=== PATIENT | female | born 1950 ===

== ENCOUNTER 2016-08-31 22:43 | Inpatient (IN) | payer MEDICARE, OTHER ==
[2016-08-31 22:43] VITALS: PULSE 146; BMI 25.0
[2016-08-31] MEDS ORDERED: Propofol 10 mg/ml Inj (20 ML) IVP ONE (23:30)
[2016-08-31] MEDS ORDERED: Propofol 10 mg/ml 1,000 MG/100 ML VIAL ONE (23:31)
--- NOTE | 2016-08-31 23:31 | C.PDOC ---
History Of Present Illness A 67 y/o female with a Hx of dialysis bleed, c/o feeling lethargic after she was discharged from [facility] today. Pt denies chest pain, palpitations, fever, chills, diaphoresis, or any other complaints. Time Seen by Provider: 08/31/16 23:29 Chief Complaint (Nursing): Respiratory Distress History Per: Patient History/Exam Limitations: no limitations Onset/Duration Of Symptoms: Hrs Current Symptoms Are (Timing): Still Present Severity: Mild Associated Symptoms: denies: Fever, Chills, Chest Pain Recent travel outside of the [place]: No Additional History Per: Patient Past Medical History Reviewed: Historical Data, Nursing Documentation, Vital Signs Vital Signs: Last Vital Signs Temp Pulse 60 08/31/16 22:47 Resp 23 08/31/16 23:01 BP 92/51 L 08/31/16 22:47 Pulse Ox 100 09/01/16 01:07 - Medical History PMH: Anemia, Arthritis, Atrial Fibrillation, CAD, Cardia Arrhythmia, Depression , HTN, Hyperlipidemia, Migraine, Osteoporosis, Pancreatitis, Peripheral Edema, End Stage Renal Disease, Chronic Kidney Disease Denies: COPD, Hypercholesterolemia, Rheumatoid Arthritis, Sexually Transmitted Disease Comment Only: CHF (CAD, A-fib) Surgical History: Cholecystectomy, Endoscopy, Pacemaker - [facility] Procedures ANGIOPLASTY OF OTHER NON-CORONARY VESSEL(S) (12/04/13) DIALYSIS ARTERIOVENOSTOM (12/04/13) FLEXIBLE SIGMOIDOSCOPY (07/30/14) FLUOROSCOPY OF LEFT HEART USING LOW OSMOLAR CONTRAST (02/01/16) FLUOROSCOPY OF MULT COR ART USING L OSM CONTRAST (02/01/16) HEMODIALYSIS (09/30/14) INSEJ [id number] PERIPHERAL NON-CORONARY VES STENT(S) (12/04/13) INSERTION OF ONE VASCULAR STENT (12/04/13) MEASURE OF CARDIAC SAMPL & PRESSURE, L HEART, PERC APPROACH (02/01/16) OTHER ENDOSCOPY OF SM INTEST (07/30/14) PACKED CELL TRANSFUSION (09/30/14) PERFORMANCE OF URINARY FILTRATION, MULTIPLE (03/25/16) PERFORMANCE OF URINARY FILTRATION, SINGLE (05/02/16) PROCEDURE ON SINGLE VESSEL (12/04/13) VASC PROC REVISION NEC (12/04/13) VENOUS CATHETERIZATION FOR RENAL DIALYSIS (12/04/13) Family History: States: Unknown Family Hx - Social History Hx Tobacco Use: No Hx Alcohol Use: No Hx Substance Use: No - Immunization History Hx Tetanus Toxoid Vaccination: Yes Hx Influenza Vaccination: Yes Hx Pneumococcal Vaccination: Yes Review Of Systems Except As Marked, All Systems Reviewed And Found Negative. Constitutional: Positive for: Other (Lethargic). Negative for: Fever, Chills, Sweats Cardiovascular: Negative for: Chest Pain, Palpitations Physical Exam - Physical Exam Appears: Non-toxic, No Acute Distress, Other (Lethargic) Skin: Warm, Dry Head: Atraumatic, Normacephalic Eye(s): bilateral: Normal Inspection Cardiovascular: Rhythm Regular, No Murmur Respiratory: Normal Breath Sounds, No Accessory Muscle Use, No Rales, No Rhonchi , No Wheezing Gastrointestinal/Abdominal: Soft, No Tenderness Extremity: Normal ROM, No Pedal Edema, No Deformity, No Swelling Neurological/Psych: Oriented x3, Normal Speech, Normal Cognition, Other (No focal deficit) ED Course And Treatment - Laboratory Results Result Diagrams: 09/01/16 00:07 Lab Interpretation: Abnormal Interpretation Of Abnormal: Preintubation VBG showed resp. acidosis wih elevated pCO2 ECG: Interpreted By Me, Viewed By Me ECG Rhythm: V Paced ECG Interpretation: Abnormal Interpretation Of ECG: Ventricular paced rhythm. Rate From EC O2 Sat by Pulse Oximetry: 100 (RA) Pulse Ox Interpretation: Other (initial VBG- pH-7.2 pCO2 of 84) - Radiology CXR: Interpreted by Me, Viewed By Me CXR Interpretation: Yes: Other (bilateral pleural effusion) Medical Decision Making Medical Decision Making: Impression: 66 y/o female c/o feeling lethargic today Plans: EKG Blood labs CXR IV fluids Reassess Pt is markedly lethargic and pt has been intubated. Disposition Discussed With : Porsha Newell Doctor Will See Patient In The: Hospital Counseled Patient/Family Regarding: Diagnosis - Disposition Disposition: HOSPITALIZED Disposition Time: 01:08 Condition: GUARDED - Clinical Impression Clinical Impression: Respiratory failure, ESRD (end stage renal disease) on dialysis - Scribe Statement The provider has reviewed the documentation as recorded by the Scribe Aneudy morris All medical record entries made by the Scribe were at my direction and personally dictated by me. I have reviewed the chart and agree that the record accurately reflects my personal performance of the history, physical exam, medical decision making, and the department course for this patient. I have also personally directed, reviewed, and agree with the discharge instructions and disposition.
[2016-08-31] MEDS ORDERED: Propofol 10 mg/ml 1,000 MG/100 ML VIAL IV PRN (23:49)
[2016-09-01 00:17] LABS: BASO % 0.5 % (0.0-2.0); EOS % 0.2 % (0.0-4.0); HEMOGLOBIN 9.3 g/dL (11.0-16.0); LYMPH # 0.3 K/uL (1.0-4.3); MEAN CORPUSCULAR HEMOGLOBIN 33.3 pg (27.0-31.0); MEAN CORPUSCULAR HGB CONC 29.7 g/dL (33.0-37.0); MEAN PLATELET VOLUME 10.3 fL (7.2-11.7); MONO # 0.5 K/uL (0.0-0.8); MONO % 14.5 % (0.0-10.0); NEUT # 2.3 K/uL (1.8-7.0); NEUT % 74.8 % (50.0-75.0); NRBC % 1.6 % (0.0-2.0); RBC 2.8 Mil/uL (3.80-5.20); WHITE BLOOD COUNT 3.1 K/uL (4.8-10.8)
[2016-09-01] MEDS ORDERED: Sodium Chloride 0.9% 100 ML IV ONE (00:17)
[2016-09-01 00:20] LABS: INR 2.6
[2016-09-01 00:21] LABS: ALBUMIN 4.3 g/dL (3.5-5.0)
[2016-09-01 00:37] LABS: ARTERIAL BLOOD GAS HCO3 28.3 mmol/L (21-28); ARTERIAL BLOOD GAS HEMOGLOBIN 9.6 g/dL (11.7-17.4); ARTERIAL BLOOD GAS O2 SAT 99.6 % (95-98); ARTERIAL BLOOD GAS PCO2 51 mm/Hg (35-45); ARTERIAL BLOOD GAS PH 7.38 (7.35-7.45); ARTERIAL BLOOD GAS PO2 333 mm/Hg (80-100); ARTERIAL BLOOD GAS TCO2 31.8 mmol/L (22-28)
[2016-09-01 00:37] LABS: TROPONIN I 0.03 ng/mL (0.00-0.120)
[2016-09-01 00:38] LABS: PROTHROMBIN TIME 30.3 SECONDS (9.7-12.2)
[2016-09-01] MEDS ORDERED: Phytonadione 10 mg/ml Inj (Adult) IM SCH (01:00)
--- NOTE | 2016-09-01 01:13 | CP.PCM.CON ---
History of Present Illness - History of Present Illness History of Present Illness: PCP: Jamil Newell MD Reason for Consult: Critical care Management Chief complaint: SOB HPI: The hx is obtained from the medical records as the patient is Intubated and the family is not present. This is a 66 years old female with hx of CAD; HTN; Scleroderma; ESRD on HD Sunday, and Sunday; Asthma , COPD; CHF who was admitted at the [facility] for three weeks and discharged on the day of this admission. She complained of feeling lethargic and was found to be in SOB and brought to the ED with a NRBM Oxygen. Heree in the ED she was intubated because of The severity of the SOB and impending respiratory arrest. No complains of Chest pain, nausea, vomits, palpitation, fever, chills, diaphoresis. PMH: Anemia, Arthritis, A Fib, CAD, Depression, HTN, HLD, Migraine, Osteoporosis, Pancreatitis, Peripheral Edema, ESRD, Asthma/COPD; scleroderma; CHF Glaucoma PSH: Cholecystitis; Permanent pacemaker; AV shunt at right arm; Failed kidney transplant; Endoscopy SH; No smoking; No Alcohol; No illegal drug use; live with family FH: Unknown family hx Allergies: Vancomycin, budesonide, Formaterol Review of Systems - Review of Systems Systems not reviewed;Unavailable: Respiratory Distress Review of Systems: Review of systems limited because the patient is intubated and is restless at this time. Past Patient History - Infectious Disease Hx of Infectious Diseases: None - Tetanus Immunizations Tetanus Immunization: Unknown - Past Medical History & Family History Past Medical History?: Yes - Past Social History Smoking Status: Never Smoked Chewing Tobacco Use: No Cigar Use: No Alcohol: None Home Situation {Lives}: With Family - CARDIAC Hx Atrial Fibrillation: Yes Hx Cardia Arrhythmia: Yes Hx Congestive Heart Failure: (CAD, A-fib) Hx Hypercholesterolemia: No Hx Hypertension: Yes Hx Pacemaker: Yes Hx Peripheral Edema: Yes - PULMONARY Hx Chronic Obstructive Pulmonary Disease (COPD): No - NEUROLOGICAL Hx Migraine: Yes - HEENT Hx HEENT Problems: Yes Hx Glaucoma: Yes (rt eye) - RENAL Hx Chronic Kidney Disease: Yes - ENDOCRINE/METABOLIC Hx Endocrine Disorders: No - HEMATOLOGICAL/ONCOLOGICAL Hx Anemia: Yes - INTEGUMENTARY Hx Dermatological Problems: Yes (nephrogenic sclerosis,Scleroderma) Other/Comment: SCLERODERMA - MUSCULOSKELETAL/RHEUMATOLOGICAL Hx Arthritis: Yes Hx Osteoporosis: Yes Hx Rheumatoid Arthritis: No - GASTROINTESTINAL Hx Pancreatitis: Yes - GENITOURINARY/GYNECOLOGICAL Hx Sexually Transmitted Disorders: No - PSYCHIATRIC Hx Depression: Yes Hx Substance Use: No - SURGICAL HISTORY Hx Cholecystectomy: Yes Other/Comment: AV Shunt for dialysis ; PPM; Kidney transplant failure - ANESTHESIA Hx Anesthesia: Yes Hx Anesthesia Reactions: No Hx Malignant Hyperthermia: No Meds Allergies/Adverse Reactions: Allergies Allergy/AdvReac Type Severity Reaction Status Date / Time vancomycin Allergy Severe ITCHING Verified 05/10/16 06:40 budesonide [From Symbicort] Allergy ITCHING Verified 08/31/16 22:56 formoterol [From Symbicort] Allergy ITCHING Verified 08/31/16 22:56 - Medications Medications: Current Medications Propofol (Diprivan) 1,000 mg in 100 mls @ 2.381 mls/hr IV .Q24H PRN; Protocol; 5 MCG/KG/MIN PRN Reason: TITRATE PER MD ORDER Last Admin: 08/31/16 23:51 Dose: 2.381 mls/hr Sodium Chloride (Sodium Chloride 0.9%) 100 mls @ 100 mls/hr IV .Q1H ONE Stop: 09/01/16 01:16 Last Admin: 09/01/16 00:18 Dose: 100 mls/hr Phytonadione (Vitamin K Inj) 10 mg IM STAT NEVAEH Physical Exam - Constitutional Additional comments: Patient on the mechanical ventilator - Head Exam Head Exam: ATRAUMATIC, NORMAL INSPECTION, NORMOCEPHALIC - Eye Exam Eye Exam: Normal appearance, PERRL Pupil Exam: NORMAL ACCOMODATION - ENT Exam ENT Exam: Mucous Membranes Moist, Normal Exam, Normal External Ear Exam, Normal Oropharynx - Neck Exam Neck exam: Positive for: Normal Inspection. Negative for: Full Rom, Lymphadenopathy, Tenderness - Respiratory Exam Additional comments: Expiratory wheezes, no rales, decreased breath sounds at the bases. - Cardiovascular Exam Cardiovascular Exam: REGULAR RHYTHM, RRR, +S1, +S2 - GI/Abdominal Exam Additional comments: Full, Firm, Tympanic on percussion, non tender, decreased bowl sounds - Rectal Exam Rectal Exam: Deferred - Extremities Exam Extremities exam: Negative for: calf tenderness, full ROM, joint swelling, pedal edema - Back Exam Back exam: NORMAL INSPECTION. absent: CVA tenderness (L), CVA tenderness (R) - Neurological Exam Neurological exam: CN II-XII Intact, Reflexes Normal Additional comments: Patient lightly sedated on Diprivan, Following commands to open the eyes , no facial droop, moving both upper extremities, minimal movement movement of the lower extremities. - Psychiatric Exam Psychiatric exam: Agitated - Skin Skin Exam: Intact, Normal Color, Warm Additional comments: Skin dry , tight, with some edema at the upper extremities, Botrh lower extremities with tight dry skin, Results - Vital Signs Recent Vital Signs: Last Vital Signs Temp Pulse 60 08/31/16 22:47 Resp 23 08/31/16 23:01 BP 92/51 L 08/31/16 22:47 Pulse Ox 100 09/01/16 01:09 - Labs Result Diagrams: 09/01/16 06:36 09/01/16 06:33 Labs: Laboratory Results - last 24 hr 08/31/16 09/01/16 09/01/16 22:48 00:07 00:07 WBC 3.1 L RBC 2.80 L Hgb 9.3 L Hct 31.4 L MCV 112.0 H D MCH 33.3 H MCHC 29.7 L RDW 20.0 H Plt Count 61 L D MPV 10.3 Neut % (Auto) 74.8 Lymph % (Auto) 10.0 L [place] % (Auto) 14.5 H Eos % (Auto) 0.2 Baso % (Auto) 0.5 Neut # 2.3 Lymph # 0.3 L [place] # 0.5 Eos # 0.0 Baso # 0.0 PT 30.3 H* INR 2.6 APTT 50 H Puncture Site pCO2 pO2 HCO3 ABG pH ABG Total CO2 ABG O2 Saturation ABG Base Excess ABG Hemoglobin ABG Carboxyhemoglobin POC ABG HHb (Measured) ABG Methemoglobin Gumaro Test A-a O2 Difference Respiratory Index Hgb O2 Saturation Mechanical Rate FiO2 Tidal Volume PEEP Sodium Potassium Chloride Carbon Dioxide Anion Gap BUN Creatinine Est GFR ( Amer) Est GFR (Non-Af Amer) POC Glucose (mg/dL) 150 H Random Glucose Calcium Total Bilirubin AST ALT Alkaline Phosphatase Troponin I Total Protein Albumin Globulin Albumin/Globulin Ratio 09/01/16 09/01/16 00:07 00:34 WBC RBC Hgb Hct MCV MCH MCHC RDW Plt Count MPV Neut % (Auto) Lymph % (Auto) [place] % (Auto) Eos % (Auto) Baso % (Auto) Neut # Lymph # [place] # Eos # Baso # PT INR APTT Puncture Site Lb pCO2 51 H pO2 333 H HCO3 28.3 H ABG pH 7.38 ABG Total CO2 31.8 H ABG O2 Saturation 99.6 H ABG Base Excess 4.3 H ABG Hemoglobin 9.6 L ABG Carboxyhemoglobin 2.1 H POC ABG HHb (Measured) 0.4 ABG Methemoglobin 0.7 Gumaro Test Na A-a O2 Difference 316.0 Respiratory Index 0.9 Hgb O2 Saturation 96.8 Mechanical Rate 18 FiO2 100.0 Tidal Volume 450 PEEP 5 Sodium 141 Potassium 3.6 Chloride 98 Carbon Dioxide 26 Anion Gap 20 BUN 25 H Creatinine 2.6 H Est GFR ( Amer) 22 Est GFR (Non-Af Amer) 18 POC Glucose (mg/dL) Random Glucose 113 H Calcium 9.0 Total Bilirubin 2.0 H AST 77 H D ALT 31 Alkaline Phosphatase 148 H D Troponin I 0.0300 Total Protein 8.7 H Albumin 4.3 Globulin 4.4 H Albumin/Globulin Ratio 1.0 - EKG Data EKG comments: Pac ed and caprured beats, 60/min - Imaging and Cardiology Chest x-ray Status: Image reviewed by me Additional comment: Bibasal infiltrate with Pleural effusion at the bases. Assessment & Plan - Assessment and Plan (Free Text) Assessment: #. RespiratoryDistress #. ESRD #. Thrombopenia #. Anemia of chronic Disease #. Leukopenia #.Hx of A Fib on Coumadin Plan: 66 years old female with hx of CAD; HTN; Scleroderma; ESRD on HD Sunday, and Sunday; Asthma , COPD; CHF who was admitted at the [facility] for three weeks and discharged on the day of this admission.She comes with lethargy and SOB, brought to the ED with a NRBM Oxygen. Intubated in ED because of The severe SOB and impending respiratory arrest. #. Respiratory Distress Probably due to Asthmatic crisis vs volume overload. The patient is on therapeutic dose of Coumadin which makes Pulmonary embolism less likely. - Patient intubated in ED Settings are TV 450, Rate of 18. PEEP of 5 and Fio2 of 100% - follow up repeated ABG - Duoneb Q4hrs and Q2 hrs PRN - Urgent dialysis #. ESRD - Consult Dr Velasquez Gonzalez, Nephrology, for Dialysis - Follow Renal labs #. Thrombopenia most likely chronic - follow Platelets #. Anemia of chronic renal disease - Follow Hb #. Leukopenia - Follow WBC #.Hx of A Fib on Coumadin - Follow INR #. Stress ulcer prophylaxis with Pepcid #. DVT prophylaxis with SCD and Coumadin #. Code status Full - Date & Time Date: 09/01/16 Time: 01:12
[2016-09-01] MEDS ORDERED: Albuterol-Ipratrop 3 mg / 0.5 (3 ml) UD INH PRN (02:20)
[2016-09-01 03:23] LABS: ABG ALLEN TEST P; ARTERIAL BLOOD GAS HCO3 27.8 mmol/L (21-28); ARTERIAL BLOOD GAS O2 SAT 98.7 % (95-98); ARTERIAL BLOOD GAS PCO2 34 mm/Hg (35-45); ARTERIAL BLOOD GAS PO2 135 mm/Hg (80-100); ARTERIAL BLOOD GAS TCO2 27.5 mmol/L (22-28)
[2016-09-01 06:49] LABS: INR 2.4; PROTHROMBIN TIME 27.5 SECONDS (9.7-12.2)
[2016-09-01 06:53] LABS: BASO % 0.6 % (0.0-2.0); EOS % 0.7 % (0.0-4.0); HEMOGLOBIN 9.2 g/dL (11.0-16.0); LYMPH # 0.6 K/uL (1.0-4.3); MEAN CELL VOLUME 108.8 fL (81.0-99.0); MEAN CORPUSCULAR HGB CONC 31.3 g/dL (33.0-37.0); MEAN PLATELET VOLUME 10.3 fL (7.2-11.7); MONO # 0.5 K/uL (0.0-0.8); MONO % 11.9 % (0.0-10.0); NEUT # 2.8 K/uL (1.8-7.0); NEUT % 70.8 % (50.0-75.0); NRBC % 1.4 % (0.0-2.0); RBC 2.71 Mil/uL (3.80-5.20); RED CELL DISTRIBUTION WIDTH 19.1 % (11.5-14.5)
[2016-09-01 07:03] LABS: TROPONIN I 0.051 ng/mL (0.00-0.120)
[2016-09-01 07:05] LABS: CALCIUM 8.9 mg/dl (8.6-10.4)
[2016-09-01] MEDS: Albuterol-Ipratrop 3 mg / 0.5 (3 ml) UD INH SCH ×4 (07:57→19:54)
--- NOTE | 2016-09-01 10:23 | RAD ---
PROCEDURE: CHEST RADIOGRAPH, 1 VIEW HISTORY: Shortness of breath COMPARISON: 05/10/2016. FINDINGS: The endotracheal tube terminates 1.6 cm proximal to the cristi. LUNGS: There is severe pulmonary venous congestion and prominent central vasculature. There is also fluid in the horizontal fissure. PLEURA: There are bilateral pleural effusions, larger on the right. CARDIOVASCULAR: There is borderline cardiomegaly. There is stable position of a left-sided dual lead transvenous permanent pacing device. OSSEOUS STRUCTURES: No significant abnormalities. VISUALIZED UPPER ABDOMEN: Normal. OTHER FINDINGS: None. IMPRESSION: 1. Endotracheal tube terminates 1.6 cm proximal to the cristi. 2. Severe pulmonary venous congestion and bilateral pleural effusions most compatible with congestive heart failure. Underlying right lower lobe atelectasis/ pneumonia cannot be excluded. Follow-up is advised.
--- NOTE | 2016-09-01 12:45 | CP.PCM.HP ---
Past Patient History - Infectious Disease Hx of Infectious Diseases: None - Tetanus Immunizations Tetanus Immunization: Unknown - Past Medical History & Family History Past Medical History?: Yes - Past Social History Smoking Status: Never Smoked Chewing Tobacco Use: No Cigar Use: No Alcohol: None Home Situation {Lives}: With Family - CARDIAC Hx Atrial Fibrillation: Yes Hx Cardia Arrhythmia: Yes Hx Congestive Heart Failure: (CAD, A-fib) Hx Hypercholesterolemia: No Hx Hypertension: Yes Hx Pacemaker: Yes Hx Peripheral Edema: Yes - PULMONARY Hx Chronic Obstructive Pulmonary Disease (COPD): No - NEUROLOGICAL Hx Migraine: Yes - HEENT Hx HEENT Problems: Yes Hx Glaucoma: Yes (rt eye) - RENAL Hx Chronic Kidney Disease: Yes - ENDOCRINE/METABOLIC Hx Endocrine Disorders: No - HEMATOLOGICAL/ONCOLOGICAL Hx Anemia: Yes - INTEGUMENTARY Hx Dermatological Problems: Yes (nephrogenic sclerosis,Scleroderma) Other/Comment: SCLERODERMA - MUSCULOSKELETAL/RHEUMATOLOGICAL Hx Arthritis: Yes Hx Osteoporosis: Yes Hx Rheumatoid Arthritis: No - GASTROINTESTINAL Hx Pancreatitis: Yes - GENITOURINARY/GYNECOLOGICAL Hx Sexually Transmitted Disorders: No - PSYCHIATRIC Hx Depression: Yes Hx Substance Use: No - SURGICAL HISTORY Hx Cholecystectomy: Yes Other/Comment: AV Shunt for dialysis ; PPM; Kidney transplant failure - ANESTHESIA Hx Anesthesia: Yes Hx Anesthesia Reactions: No Hx Malignant Hyperthermia: No Meds Allergies/Adverse Reactions: Allergies Allergy/AdvReac Type Severity Reaction Status Date / Time vancomycin Allergy Severe ITCHING Verified 05/10/16 06:40 budesonide [From Symbicort] Allergy ITCHING Verified 08/31/16 22:56 formoterol [From Symbicort] Allergy ITCHING Verified 08/31/16 22:56 Physical Exam - Constitutional Appears: Well - Head Exam Head Exam: ATRAUMATIC, NORMAL INSPECTION, NORMOCEPHALIC - Eye Exam Eye Exam: EOMI, Normal appearance, PERRL Pupil Exam: NORMAL ACCOMODATION, PERRL - ENT Exam ENT Exam: Mucous Membranes Moist, Normal Exam - Neck Exam Neck exam: Positive for: Normal Inspection - Respiratory Exam Respiratory Exam: Decreased Breath Sounds - Cardiovascular Exam Cardiovascular Exam: REGULAR RHYTHM, +S1, +S2 - GI/Abdominal Exam GI & Abdominal Exam: Diminished Bowel Sounds, Soft - Rectal Exam Rectal Exam: Deferred Results - Vital Signs Recent Vital Signs: Last Vital Signs Temp 98.3 F 09/01/16 11:00 Pulse 60 09/01/16 11:49 Resp 20 09/01/16 11:49 BP 85/38 L 09/01/16 12:00 Pulse Ox 100 09/01/16 11:00 - Labs Result Diagrams: 09/01/16 06:36 09/01/16 06:33 Labs: Laboratory Results - last 24 hr 09/01/16 09/01/16 09/01/16 01:27 02:07 06:33 WBC RBC Hgb Hct MCV MCH MCHC RDW Plt Count MPV Neut % (Auto) Lymph % (Auto) [place] % (Auto) Eos % (Auto) Baso % (Auto) Neut # Lymph # [place] # Eos # Baso # PT INR Puncture Site L brah pCO2 34 L pO2 135 H HCO3 27.8 ABG pH 7.50 H ABG Total CO2 27.5 ABG O2 Saturation 98.7 H ABG Base Excess 3.6 H Gumaro Test P ABG Potassium 3.9 A-a O2 Difference 179.0 Respiratory Index 1.3 Sodium 138.0 138 Chloride 103.0 96 L Glucose 79 Lactate 1.8 Mechanical Rate 20 FiO2 50.0 Tidal Volume 500 PEEP 5 Potassium 3.8 Carbon Dioxide 25 Anion Gap 21 H BUN 29 H Creatinine 2.8 H Est GFR ( Amer) 20 Est GFR (Non-Af Amer) 17 Random Glucose 63 L Calcium 8.9 Phosphorus 2.0 L Magnesium 2.0 Troponin I 0.0510 Arterial Blood Potassium 3.9 Blood Type O POSITIVE Antibody Screen Positive Antibody Identification Anti E 09/01/16 09/01/16 09/01/16 06:36 06:36 11:30 WBC 4.0 L RBC 2.71 L Hgb 9.2 L Hct 29.4 L MCV 108.8 H D MCH 34.0 H MCHC 31.3 L RDW 19.1 H Plt Count 72 L MPV 10.3 Neut % (Auto) 70.8 Lymph % (Auto) 16.0 L [place] % (Auto) 11.9 H Eos % (Auto) 0.7 Baso % (Auto) 0.6 Neut # 2.8 Lymph # 0.6 L [place] # 0.5 Eos # 0.0 Baso # 0.0 PT 27.5 H INR 2.4 Puncture Site pCO2 pO2 HCO3 ABG pH ABG Total CO2 ABG O2 Saturation ABG Base Excess Gumaro Test ABG Potassium A-a O2 Difference Respiratory Index Sodium Chloride Glucose Lactate Mechanical Rate FiO2 Tidal Volume PEEP Potassium Carbon Dioxide Anion Gap BUN Creatinine Est GFR ( Amer) Est GFR (Non-Af Amer) Random Glucose Calcium Phosphorus Magnesium Troponin I 0.0680 Arterial Blood Potassium Blood Type Antibody Screen Antibody Identification
--- NOTE | 2016-09-01 12:51 | CP.PCM.CON ---
History of Present Illness - History of Present Illness History of Present Illness: Chief complaint: SOB HPI: The hx is obtained from the medical records as the patient is Intubated and the family is not present. This is a 66 years old female with hx of ICmp; HTN; systemic fibrosing dermopathy; ESRD on HD Sunday, and Sunday; Asthma , COPD; CHF who was admitted at the [facility] for three weeks and discharged on the day of this admission. She complained of feeling lethargic and was found to be in SOB and brought to the ED with a NRBM Oxygen. Heree in the ED she was intubated because of The severity of the SOB and impending respiratory arrest. No complains of Chest pain, nausea, vomits, palpitation, fever, chills, diaphoresis. PMH: Anemia, Arthritis, A Fib, ICMP, Depression, HTN, HLD, Migraine, Osteoporosis, Pancreatitis, Peripheral Edema, ESRD, Asthma/COPD; systemic fibrosing dermopathy; CHF , severe DDD spine PSH: Cholecystitis; Permanent pacemaker; AV shunt at right arm; Failed kidney transplant x2; Endoscopy SH; No smoking; No Alcohol; No illegal drug use; live with family FH: Unknown family hx Allergies: Vancomycin, budesonide, Formaterol Well known to me; scheduled for extra HD due to CHF; had presented with respiratory failure consult dictated Past Patient History - Infectious Disease Hx of Infectious Diseases: None - Tetanus Immunizations Tetanus Immunization: Unknown - Past Medical History & Family History Past Medical History?: Yes - Past Social History Smoking Status: Never Smoked Chewing Tobacco Use: No Cigar Use: No Alcohol: None Home Situation {Lives}: With Family - CARDIAC Hx Atrial Fibrillation: Yes Hx Cardia Arrhythmia: Yes Hx Congestive Heart Failure: (CAD, A-fib) Hx Hypercholesterolemia: No Hx Hypertension: Yes Hx Pacemaker: Yes Hx Peripheral Edema: Yes - PULMONARY Hx Chronic Obstructive Pulmonary Disease (COPD): No - NEUROLOGICAL Hx Migraine: Yes - HEENT Hx HEENT Problems: Yes Hx Glaucoma: Yes (rt eye) - RENAL Hx Chronic Kidney Disease: Yes - ENDOCRINE/METABOLIC Hx Endocrine Disorders: No - HEMATOLOGICAL/ONCOLOGICAL Hx Anemia: Yes - INTEGUMENTARY Hx Dermatological Problems: Yes (nephrogenic sclerosis,Scleroderma) Other/Comment: SCLERODERMA - MUSCULOSKELETAL/RHEUMATOLOGICAL Hx Arthritis: Yes Hx Osteoporosis: Yes Hx Rheumatoid Arthritis: No - GASTROINTESTINAL Hx Pancreatitis: Yes - GENITOURINARY/GYNECOLOGICAL Hx Sexually Transmitted Disorders: No - PSYCHIATRIC Hx Depression: Yes Hx Substance Use: No - SURGICAL HISTORY Hx Cholecystectomy: Yes Other/Comment: AV Shunt for dialysis ; PPM; Kidney transplant failure - ANESTHESIA Hx Anesthesia: Yes Hx Anesthesia Reactions: No Hx Malignant Hyperthermia: No Meds Allergies/Adverse Reactions: Allergies Allergy/AdvReac Type Severity Reaction Status Date / Time vancomycin Allergy Severe ITCHING Verified 05/10/16 06:40 budesonide [From Symbicort] Allergy ITCHING Verified 08/31/16 22:56 formoterol [From Symbicort] Allergy ITCHING Verified 08/31/16 22:56 - Medications Medications: Current Medications Albuterol/Ipratropium (Duoneb 3 Mg/0.5 Mg (3 Ml) Ud) 3 ml INH RQ4 [facility] Last Admin: 09/01/16 12:13 Dose: Not Given Albuterol/Ipratropium (Duoneb 3 Mg/0.5 Mg (3 Ml) Ud) 3 ml INH RQ2 PRN PRN Reason: Shortness of Breath Amiodarone HCl (Cordarone) 200 mg PO DAILY [facility] Last Admin: 09/01/16 10:10 Dose: 200 mg Calcium Acetate (Phoslo) 1,334 mg PO BIDCC [facility] Last Admin: 09/01/16 10:09 Dose: 1,334 mg Clopidogrel Bisulfate (Plavix) 75 mg PO DAILY [facility] Last Admin: 09/01/16 10:10 Dose: 75 mg Docusate Sodium (Colace) 100 mg PO BID PRN PRN Reason: Constipation Famotidine (Pepcid) 20 mg PO DAILY [facility] Last Admin: 09/01/16 10:10 Dose: 20 mg Folic Acid (Folic Acid) 1 mg NG DAILY [facility] Last Admin: 09/01/16 10:10 Dose: 1 mg Propofol (Diprivan) 1,000 mg in 100 mls @ 2.381 mls/hr IV .Q24H PRN; Protocol; 5 MCG/KG/MIN PRN Reason: TITRATE PER MD ORDER Last Titration: 09/01/16 11:14 Dose: 4.4 mcg/kg/min, 2.1 mls/hr Metoprolol Tartrate (Lopressor) 25 mg PO BID [facility] Last Admin: 09/01/16 10:10 Dose: 25 mg Midazolam HCl (Versed Inj) 2 mg IVP Q4H PRN PRN Reason: Agitation Warfarin Sodium (Coumadin) 5 mg PO 1800 [facility] Stop: 09/01/16 18:01 Results - Vital Signs Recent Vital Signs: Last Vital Signs Temp 98.3 F 09/01/16 11:00 Pulse 60 09/01/16 11:49 Resp 20 09/01/16 11:49 BP 85/38 L 09/01/16 12:00 Pulse Ox 100 09/01/16 11:00 - Labs Result Diagrams: 09/01/16 06:36 09/01/16 06:33 Labs: Laboratory Results - last 24 hr 09/01/16 09/01/16 09/01/16 01:27 02:07 06:33 WBC RBC Hgb Hct MCV MCH MCHC RDW Plt Count MPV Neut % (Auto) Lymph % (Auto) Cecil % (Auto) Eos % (Auto) Baso % (Auto) Neut # Lymph # Cecil # Eos # Baso # PT INR Puncture Site L brah pCO2 34 L pO2 135 H HCO3 27.8 ABG pH 7.50 H ABG Total CO2 27.5 ABG O2 Saturation 98.7 H ABG Base Excess 3.6 H Gumaro Test P ABG Potassium 3.9 A-a O2 Difference 179.0 Respiratory Index 1.3 Sodium 138.0 138 Chloride 103.0 96 L Glucose 79 Lactate 1.8 Mechanical Rate 20 FiO2 50.0 Tidal Volume 500 PEEP 5 Potassium 3.8 Carbon Dioxide 25 Anion Gap 21 H BUN 29 H Creatinine 2.8 H Est GFR ( Amer) 20 Est GFR (Non-Af Amer) 17 Random Glucose 63 L Calcium 8.9 Phosphorus 2.0 L Magnesium 2.0 Troponin I 0.0510 Arterial Blood Potassium 3.9 Blood Type O POSITIVE Antibody Screen Positive Antibody Identification Anti E 09/01/16 09/01/16 09/01/16 06:36 06:36 11:30 WBC 4.0 L RBC 2.71 L Hgb 9.2 L Hct 29.4 L MCV 108.8 H D MCH 34.0 H MCHC 31.3 L RDW 19.1 H Plt Count 72 L MPV 10.3 Neut % (Auto) 70.8 Lymph % (Auto) 16.0 L Cecil % (Auto) 11.9 H Eos % (Auto) 0.7 Baso % (Auto) 0.6 Neut # 2.8 Lymph # 0.6 L Cecil # 0.5 Eos # 0.0 Baso # 0.0 PT 27.5 H INR 2.4 Puncture Site pCO2 pO2 HCO3 ABG pH ABG Total CO2 ABG O2 Saturation ABG Base Excess Gumaro Test ABG Potassium A-a O2 Difference Respiratory Index Sodium Chloride Glucose Lactate Mechanical Rate FiO2 Tidal Volume PEEP Potassium Carbon Dioxide Anion Gap BUN Creatinine Est GFR ( Amer) Est GFR (Non-Af Amer) Random Glucose Calcium Phosphorus Magnesium Troponin I 0.0680 Arterial Blood Potassium Blood Type Antibody Screen Antibody Identification
--- NOTE | 2016-09-01 14:21 | CON ---
DATE: 09/01/2016 HISTORY OF PRESENT ILLNESS: The patient is a 66-year-old woman who presents with respirator y failure. She was intubated in the Emergency Department. She was brought in by the family. She raya d recently just been discharged at [facility] on that day or possibly the day previous where she was admitted for heart failure. She presents now with respiratory failure, had immediate i ntubation in the Emergency Department. PAST MEDICAL HISTORY: End-stage renal disease, been on dialysis for many years. She has failed 2 ki dney transplants. She has known ischemic cardiomyopathy and has recurrent congestive heart failure. Other diagnosis is that of again end-stage renal disease, ischemic cardiomyopathy, COPD, 2 failed ki dney transplant, severe degenerative disk disease of the spine, depression. She has systemic fibrosi ng dermopathy due to gadolinium and has had recurrent congestive heart failure. PAST SURGICAL HISTORY: Two kidney transplants, both failed. A permanent pacemaker, AV graft on the right. She had a previous failed shunt on the left arm and cholecystitis as well. SOCIAL HISTORY: Negative for smoking, alcohol abuse or illicit drug use. She had been living with h er family. FAMILY HISTORY: Negative for chronic kidney disease as well. MEDICATIONS: Include amiodarone, warfarin. She is presently on sedation on the respirator, folic ac id, metoprolol, Pepcid, PhosLo 2 tablets 3 times daily, Plavix. REVIEW OF SYSTEMS: She has been chronically ill, has severe dyspnea on exertion, severe pain in most ly the back, but it was somewhat diffuse pain. She has poor vision, mostly due to glaucoma history a s well. Also, does have a history of atrial fibrillation which was unmentioned and severe arthritis and has little urine output. She is chronically depressed. Other review of systems could not be obt ained. The patient is intubated. PHYSICAL EXAMINATION: GENERAL: She is a well-developed female who is presently intubated. VITAL SIGNS: Blood pressure initially when seen 105/60. Now, she is 85/40 while on dialysis, pulse is 60, temperature initially was afebrile, listed at 98.3.. NECK: She had no JVD. CHEST: Lung nino showed rales, mostly at the bases. HEART: Irregular heart rhythm, heart rate approximately 60. She has no murmur appreciated. ABDOMEN: Soft, benign, no masses. NEUROLOGIC: She is unresponsive. Neurological exam could not be further obtained. She has thickene d upper extremity digits due to the systemic fibrosing dermopathy. LABORATORY DATA: Showed hemoglobin of 9.2, white count of 4.0. She had a BUN 29, creatinine 2.8, po tassium 3.8. Chest x-ray apparently showed pleural effusions and severe congestive heart failure. IMPRESSION: The patient has severe congestive heart failure, end-stage renal disease, ischemic cardi omyopathy, failed 2 kidney transplants, degenerative disk disease, chronic atrial fibrillation, syste sole fibrosing dermopathy. PLAN: Will be increase dialysis today and tomorrow and try to ultrafiltrate adequately. Will receiv e ICU care for ventilator treatment. We will follow up. Carlos Eng MD cc: [id number] TT: 09/01/2016 14:20:02 Confirmation # [id number] Dictation # [id number] tn
[2016-09-02] MEDS: Midazolam 2 MG/2 ML VIAL IVP PRN ×3 (00:04→22:53)
[2016-09-02] MEDS: Albuterol-Ipratrop 3 mg / 0.5 (3 ml) UD INH SCH ×6 (00:29→19:51)
[2016-09-02 05:59] LABS: ARTERIAL BLOOD GAS HCO3 26.7 mmol/L (21-28); ARTERIAL BLOOD GAS HEMOGLOBIN 7.8 g/dL (11.7-17.4); ARTERIAL BLOOD GAS O2 SAT 99.1 % (95-98); ARTERIAL BLOOD GAS PCO2 20 mm/Hg (35-45); ARTERIAL BLOOD GAS PH 7.66 (7.35-7.45); ARTERIAL BLOOD GAS PO2 144 mm/Hg (80-100); ARTERIAL BLOOD GAS TCO2 23.1 mmol/L (22-28)
[2016-09-02 06:13] LABS: BASO % 0.9 % (0.0-2.0); EOS % 0.4 % (0.0-4.0); HEMOGLOBIN 8.8 g/dL (11.0-16.0); LYMPH # 0.7 K/uL (1.0-4.3); LYMPH % 13.6 % (20.0-40.0); MEAN CELL VOLUME 108.7 fL (81.0-99.0); MEAN CORPUSCULAR HEMOGLOBIN 34.2 pg (27.0-31.0); MEAN CORPUSCULAR HGB CONC 31.5 g/dL (33.0-37.0); MEAN PLATELET VOLUME 9.9 fL (7.2-11.7); MONO # 0.5 K/uL (0.0-0.8); MONO % 9.9 % (0.0-10.0); NEUT # 3.6 K/uL (1.8-7.0); NEUT % 75.2 % (50.0-75.0); NRBC % 0.6 % (0.0-2.0); RBC 2.56 Mil/uL (3.80-5.20); WHITE BLOOD COUNT 4.8 K/uL (4.8-10.8)
[2016-09-02 06:14] LABS: INR 2.1; PROTHROMBIN TIME 24.4 SECONDS (9.7-12.2)
[2016-09-02 06:33] LABS: ALBUMIN 3.7 g/dL (3.5-5.0)
[2016-09-02 06:37] LABS: CALCIUM 8.4 mg/dl (8.6-10.4); MAGNESIUM 1.9 mg/dL (1.6-2.3)
[2016-09-02 08:16] LABS: VENOUS BLOOD GAS BASE EXCESS 3.2 mmol/L (0.0-2.0); VENOUS BLOOD GAS PCO2 20 mmHg (40-60); VENOUS BLOOD GAS PO2 52 mm/Hg (30-55); VENOUS BLOOD PH 7.65 (7.32-7.43)
[2016-09-02 09:18] LABS: ALBUMIN 3.6 g/dL (3.5-5.0)
[2016-09-02 09:21] LABS: ALB/GLOB RATIO 0.9 (1.0-2.1)
[2016-09-02 09:22] LABS: CALCIUM 8.6 mg/dl (8.6-10.4)
--- NOTE | 2016-09-02 09:41 | CP.PCM.PN ---
Subjective - Date & Time of Evaluation Date of Evaluation: 09/02/16 Time of Evaluation: 09:00 - Subjective Subjective: on a respirator bp stable febrile now, cultures pending Objective - Vital Signs/Intake and Output Vital Signs (last 24 hours): Temp Pulse Resp BP Pulse Ox 100.4 F H 62 21 112/55 L 100 09/02/16 04:00 09/02/16 07:03 09/02/16 07:03 09/02/16 07:03 09/02/16 07:03 Intake and Output: 09/02/16 09/02/16 06:59 18:59 Intake Total 430 40 Balance 430 40 - Medications Medications: Current Medications Albuterol/Ipratropium (Duoneb 3 Mg/0.5 Mg (3 Ml) Ud) 3 ml INH RQ4 [facility] Last Admin: 09/02/16 07:53 Dose: 3 ml Albuterol/Ipratropium (Duoneb 3 Mg/0.5 Mg (3 Ml) Ud) 3 ml INH RQ2 PRN PRN Reason: Shortness of Breath Amiodarone HCl (Cordarone) 200 mg PO DAILY [facility] Last Admin: 09/01/16 10:10 Dose: 200 mg Calcium Acetate (Phoslo) 1,334 mg PO BIDCC [facility] Last Admin: 09/02/16 08:29 Dose: Not Given Clopidogrel Bisulfate (Plavix) 75 mg PO DAILY [facility] Last Admin: 09/01/16 10:10 Dose: 75 mg Docusate Sodium (Colace) 100 mg PO BID PRN PRN Reason: Constipation Famotidine (Pepcid) 20 mg PO DAILY [facility] Last Admin: 09/01/16 10:10 Dose: 20 mg Folic Acid (Folic Acid) 1 mg NG DAILY [facility] Last Admin: 09/01/16 10:10 Dose: 1 mg Propofol (Diprivan) 1,000 mg in 100 mls @ 2.381 mls/hr IV .Q24H PRN; Protocol; 5 MCG/KG/MIN PRN Reason: TITRATE PER MD ORDER Last Titration: 09/01/16 12:53 Dose: 0 mcg/kg/min, 0 mls/hr Metoprolol Tartrate (Lopressor) 25 mg PO BID [facility] Last Admin: 09/01/16 18:32 Dose: 25 mg Midazolam HCl (Versed Inj) 2 mg IVP Q4H PRN PRN Reason: Agitation Last Admin: 09/02/16 00:04 Dose: 2 mg - Labs Labs: 09/02/16 06:05 09/02/16 08:59 PT 24.4 SECONDS (9.7-12.2) H 09/02/16 06:05 INR 2.1 09/02/16 06:05 APTT 50 SECONDS (21-34) H 09/01/16 00:07 - Constitutional Appears: Chronically Ill - ENT Exam ENT Exam: Mucous Membranes Moist - Neck Exam Neck Exam: Full ROM. absent: Lymphadenopathy - Respiratory Exam Respiratory Exam: Decreased Breath Sounds. absent: Accessory Muscle Use - Cardiovascular Exam Cardiovascular Exam: REGULAR RHYTHM. absent: Rubs - GI/Abdominal Exam GI & Abdominal Exam: Distended. absent: Tenderness - Extremities Exam Extremities Exam: Pedal Edema - Neurological Exam Neurological Exam: absent: Awake Assessment and Plan - Assessment and Plan (Free Text) Assessment: esrd chf, fluid overload pulmonary htn afib vent dependent respiratory failure febrile HD right now for pulmonary edema for culture and empiric AB
[2016-09-02] MEDS ORDERED: Albumin Human 25% (12.5 gm/50 ml) IV ONE ×2 (09:49→10:00)
[2016-09-02] MEDS ORDERED: Sodium Phosphate 15 MMOLE in Sodium Chloride 0.9% 250 ML IV ONE (10:22)
--- NOTE | 2016-09-02 10:32 | CP.PCM.PN ---
Subjective - Date & Time of Evaluation Date of Evaluation: 09/02/16 Time of Evaluation: 13:00 - Subjective Subjective: clinically same Objective - Vital Signs/Intake and Output Vital Signs (last 24 hours): Temp Pulse Resp BP Pulse Ox 100.4 F H 62 21 112/55 L 100 09/02/16 04:00 09/02/16 07:03 09/02/16 07:03 09/02/16 07:03 09/02/16 07:03 Intake and Output: 09/02/16 09/02/16 06:59 18:59 Intake Total 430 40 Balance 430 40 - Medications Medications: Current Medications Albuterol/Ipratropium (Duoneb 3 Mg/0.5 Mg (3 Ml) Ud) 3 ml INH RQ4 [facility] Last Admin: 09/02/16 07:53 Dose: 3 ml Albuterol/Ipratropium (Duoneb 3 Mg/0.5 Mg (3 Ml) Ud) 3 ml INH RQ2 PRN PRN Reason: Shortness of Breath Amiodarone HCl (Cordarone) 200 mg PO DAILY [facility] Last Admin: 09/01/16 10:10 Dose: 200 mg Calcium Acetate (Phoslo) 1,334 mg PO BIDCC [facility] Last Admin: 09/02/16 08:29 Dose: Not Given Clopidogrel Bisulfate (Plavix) 75 mg PO DAILY [facility] Last Admin: 09/01/16 10:10 Dose: 75 mg Docusate Sodium (Colace) 100 mg PO BID PRN PRN Reason: Constipation Famotidine (Pepcid) 20 mg PO DAILY [facility] Last Admin: 09/01/16 10:10 Dose: 20 mg Folic Acid (Folic Acid) 1 mg NG DAILY [facility] Last Admin: 09/01/16 10:10 Dose: 1 mg Propofol (Diprivan) 1,000 mg in 100 mls @ 2.381 mls/hr IV .Q24H PRN; Protocol; 5 MCG/KG/MIN PRN Reason: TITRATE PER MD ORDER Last Titration: 09/01/16 12:53 Dose: 0 mcg/kg/min, 0 mls/hr Sodium Phosphate 15 mmole/ (Sodium Chloride) 255 mls @ 63 mls/hr IV ONCE ONE Stop: 09/02/16 14:20 Metoprolol Tartrate (Lopressor) 25 mg PO BID [facility] Last Admin: 09/01/16 18:32 Dose: 25 mg Midazolam HCl (Versed Inj) 2 mg IVP Q4H PRN PRN Reason: Agitation Last Admin: 09/02/16 00:04 Dose: 2 mg - Labs Labs: 09/02/16 06:05 09/02/16 08:59 PT 24.4 SECONDS (9.7-12.2) H 09/02/16 06:05 INR 2.1 09/02/16 06:05 APTT 50 SECONDS (21-34) H 09/01/16 00:07 - Constitutional Appears: Well - Head Exam Head Exam: ATRAUMATIC, NORMAL INSPECTION, NORMOCEPHALIC - Eye Exam Eye Exam: EOMI, Normal appearance, PERRL Pupil Exam: NORMAL ACCOMODATION, PERRL - ENT Exam ENT Exam: Mucous Membranes Moist, Normal Exam - Neck Exam Neck Exam: Full ROM, Normal Inspection. absent: Lymphadenopathy - Respiratory Exam Respiratory Exam: Decreased Breath Sounds - Cardiovascular Exam Cardiovascular Exam: REGULAR RHYTHM, +S1, +S2 - GI/Abdominal Exam GI & Abdominal Exam: Soft, Diminished Bowel Sounds - Rectal Exam Rectal Exam: Deferred
--- NOTE | 2016-09-02 11:15 | RAD ---
PROCEDURE: CHEST RADIOGRAPH, 1 VIEW HISTORY: pleural effusion COMPARISON: 08/31/2016 FINDINGS: LUNGS: The endotracheal tube terminates 1.5 cm proximal to the cristi. The nasogastric tube terminates in the stomach. There are bilateral layering pleural effusions and mild pulmonary venous congestion. There is confluent airspace disease in the right lower lobe. PLEURA: No pneumothorax or pleural fluid seen. CARDIOVASCULAR: The heart is normal in size. There is stable position of a left-sided dual lead transvenous permanent pacing device. OSSEOUS STRUCTURES: No significant abnormalities. VISUALIZED UPPER ABDOMEN: Normal. OTHER FINDINGS: None. IMPRESSION: Stable position of endotracheal tube. Persistent pulmonary venous congestion and pleural effusions. Airspace disease in the right lower lobe could represent atelectasis or pneumonia. Follow-up is advised.
--- NOTE | 2016-09-02 15:58 | CP.CCUPN ---
CCU Subjective - Physician Review Events Since Last Encounter (Free Text): 09/02/16 15:49 patient is hyperventilating on vent. CCU Objective - Vital Signs / Intake & Output Vital Signs (Last 4 hours): Vital Signs Temp Pulse Resp BP Pulse Ox 09/02/16 12:40 97.5 F L 60 20 126/65 100 09/02/16 12:10 101/54 L Intake and Output (Last 8hrs): Intake & Output 09/02/16 09/02/16 09/02/16 06:59 14:59 22:59 Intake Total 310 40 Balance 310 40 Weight 140 lb 4.807 oz Intake: Tube Feeding 310 40 Other: # Bowel Movements 1 - Physical Exam Head: Positive for: Atraumatic, Normocephalic Pupils: Positive for: PERRL Extroacular Muscles: Positive for: EOMI Mouth: Positive for: Moist Mucous Membranes Pharnyx: Positive for: Normal Respiratory/Chest: Positive for: Decreased Breath Sounds, Rhonchi Cardiovascular: Positive for: Regular Rate and Rhythm Abdomen: Positive for: Normal Bowel Sounds. Negative for: Tenderness, Distention Upper Extremity: Positive for: Normal Inspection Lower Extremity: Positive for: Normal Inspection Neurological: Positive for: Motor Func Grossly Intact Psychiatric: Positive for: Alert - Medications Active Medications: Active Medications Generic Name Dose Route Start Last Admin Trade Name Freq PRN Reason Stop Dose Admin Albuterol/Ipratropium 3 ml 09/01/16 04:00 09/02/16 12:04 Duoneb 3 Mg/0.5 Mg (3 Ml) Ud INH 3 ml RQ4 NEVAEH Administration Albuterol/Ipratropium 3 ml 09/01/16 02:20 Duoneb 3 Mg/0.5 Mg (3 Ml) Ud INH RQ2 PRN Shortness of Breath Amiodarone HCl 200 mg 09/01/16 10:00 09/02/16 13:48 Cordarone PO Not Given DAILY NEVAEH Calcium Acetate 1,334 mg 09/01/16 08:00 09/02/16 08:29 Phoslo PO Not Given BIDCC NEVAEH Clopidogrel Bisulfate 75 mg 09/01/16 10:00 09/02/16 12:37 Plavix PO 75 mg DAILY NEVAEH Administration Docusate Sodium 100 mg 09/01/16 01:47 09/02/16 12:37 Colace PO 100 mg BID PRN Administration Constipation Famotidine 20 mg 09/01/16 10:00 09/02/16 12:37 Pepcid PO 20 mg DAILY NEVAEH Administration Folic Acid 1 mg 09/01/16 10:00 09/02/16 12:38 Folic Acid NG 1 mg DAILY NEVAEH Administration Propofol 1,000 mg in 100 mls @ 2.381 mls/hr 08/31/16 23:49 09/01/16 12:53 Diprivan IV 0 mcg/kg/min .Q24H PRN 0 mls/hr TITRATE PER MD ORDER Titration Protocol 5 MCG/KG/MIN Metoprolol Tartrate 25 mg 09/01/16 10:00 09/02/16 13:48 Lopressor PO Not Given BID NEVAEH Midazolam HCl 2 mg 09/01/16 10:43 09/02/16 12:36 Versed Inj IVP 2 mg Q4H PRN Administration Agitation - Patient Studies Lab Studies: Microbiology Studies 09/01/16 02:12 MRSA Culture (Admit) - Final Nose MRSA NOT DETECTED Lab Studies 09/02/16 09/02/16 09/02/16 Range/Units 08:59 08:11 06:05 WBC (4.8-10.8) K/uL RBC (3.80-5.20) Mil/uL Hgb (11.0-16.0) g/dL Hct (34.0-47.0) % MCV (81.0-99.0) fL MCH (27.0-31.0) pg MCHC (33.0-37.0) g/dL RDW (11.5-14.5) % Plt Count (130-400) K/uL MPV (7.2-11.7) fL Neut % (Auto) (50.0-75.0) % Lymph % (Auto) (20.0-40.0) % Thomas % (Auto) (0.0-10.0) % Eos % (Auto) (0.0-4.0) % Baso % (Auto) (0.0-2.0) % Neut # (1.8-7.0) K/uL Lymph # (1.0-4.3) K/uL Thomas # (0.0-0.8) K/uL Eos # (0.0-0.7) K/uL Baso # (0.0-0.2) K/uL PT (9.7-12.2) SECONDS INR Puncture Site pCO2 (35-45) mm/Hg pO2 52 (80-100) mm/Hg HCO3 (21-28) mmol/L ABG pH (7.35-7.45) ABG Total CO2 (22-28) mmol/L ABG O2 Saturation (95-98) % ABG Base Excess (-2.0-3.0) mmol/L ABG Hemoglobin (11.7-17.4) g/dL ABG Carboxyhemoglobin (0.5-1.5) % POC ABG HHb (Measured) (0.0-5.0) % ABG Methemoglobin (0.0-3.0) % Gumaro Test VBG pH 7.65 H (7.32-7.43) VBG pCO2 20 L (40-60) mmHg VBG HCO3 27.3 mmol/L VBG Total CO2 22.6 (22-28) mmol/L VBG O2 Sat (Calc) 96.0 H (40-65) % VBG Base Excess 3.2 H (0.0-2.0) mmol/L VBG Potassium 2.3 L* (3.6-5.2) mmol/L A-a O2 Difference mm/Hg Respiratory Index Hgb O2 Saturation (95.0-98.0) % Glucose 88 (65-105) mg/dl Lactate 1.1 (0.7-2.1) mmol/L Mechanical Rate FiO2 50.0 % Tidal Volume PEEP 5 Crit Value Called To Dr garcia Crit Value Called By Joyce garcia volunteer assistant Crit Value Read Back Y Blood Gas Notified Time 820 Sodium 138 144.0 136 (132-148) mmol/L Potassium 3.3 L 3.2 L (3.6-5.2) mmol/L Chloride 101 113.0 H 97 L (98-107) mmol/L Carbon Dioxide 22 24 (22-30) mmol/L Anion Gap 18 18 (10-20) BUN 25 H 24 H (7-17) mg/dL Creatinine 2.2 H 2.1 H (0.7-1.2) MG/DL Est GFR ( Amer) 27 29 Est GFR (Non-Af Amer) 22 24 POC Glucose (mg/dL) (65-110) mg/dL Random Glucose 103 98 (65-105) mg/dL Calcium 8.6 8.4 L (8.6-10.4) mg/dl Phosphorus 0.6 L* 0.7 L* (2.5-4.5) mg/dL Magnesium 1.9 (1.6-2.3) mg/dL Total Bilirubin 1.8 H 1.5 H (0.2-1.3) mg/dL AST 52 H 51 H D (14-36) U/L ALT 25 22 (9-52) U/L Alkaline Phosphatase 139 H 142 H (38-126) U/L Total Protein 7.5 7.5 (6.3-8.3) g/dL Albumin 3.6 3.7 (3.5-5.0) g/dL Globulin 4.0 H 3.8 (2.2-3.9) gm/dL Albumin/Globulin Ratio 0.9 L 1.0 (1.0-2.1) Venous Blood Potassium 2.3 L* (3.6-5.2) mmol/L 09/02/16 09/02/16 09/02/16 Range/Units 06:05 06:05 02:39 WBC 4.8 (4.8-10.8) K/uL RBC 2.56 L (3.80-5.20) Mil/uL Hgb 8.8 L (11.0-16.0) g/dL Hct 27.8 L (34.0-47.0) % MCV 108.7 H (81.0-99.0) fL MCH 34.2 H (27.0-31.0) pg MCHC 31.5 L (33.0-37.0) g/dL RDW 19.0 H (11.5-14.5) % Plt Count 85 L (130-400) K/uL MPV 9.9 (7.2-11.7) fL Neut % (Auto) 75.2 H (50.0-75.0) % Lymph % (Auto) 13.6 L (20.0-40.0) % Thomas % (Auto) 9.9 (0.0-10.0) % Eos % (Auto) 0.4 (0.0-4.0) % Baso % (Auto) 0.9 (0.0-2.0) % Neut # 3.6 (1.8-7.0) K/uL Lymph # 0.7 L (1.0-4.3) K/uL Thomas # 0.5 (0.0-0.8) K/uL Eos # 0.0 (0.0-0.7) K/uL Baso # 0.0 (0.0-0.2) K/uL PT 24.4 H (9.7-12.2) SECONDS INR 2.1 Puncture Site L bra pCO2 20 L (35-45) mm/Hg pO2 144 H (80-100) mm/Hg HCO3 26.7 (21-28) mmol/L ABG pH 7.66 H* (7.35-7.45) ABG Total CO2 23.1 (22-28) mmol/L ABG O2 Saturation 99.1 H (95-98) % ABG Base Excess 2.3 (-2.0-3.0) mmol/L ABG Hemoglobin 7.8 L (11.7-17.4) g/dL ABG Carboxyhemoglobin 1.4 (0.5-1.5) % POC ABG HHb (Measured) 0.9 (0.0-5.0) % ABG Methemoglobin 1.2 (0.0-3.0) % Gumaro Test Na VBG pH (7.32-7.43) VBG pCO2 (40-60) mmHg VBG HCO3 mmol/L VBG Total CO2 (22-28) mmol/L VBG O2 Sat (Calc) (40-65) % VBG Base Excess (0.0-2.0) mmol/L VBG Potassium (3.6-5.2) mmol/L A-a O2 Difference 188.0 mm/Hg Respiratory Index 1.3 Hgb O2 Saturation 96.6 (95.0-98.0) % Glucose (65-105) mg/dl Lactate (0.7-2.1) mmol/L Mechanical Rate 20 FiO2 50.0 % Tidal Volume 500 PEEP 5 Crit Value Called To Lizzy helton rn Crit Value Called By Piper germain rt Crit Value Read Back Y Blood Gas Notified Time 559 Sodium (132-148) mmol/L Potassium (3.6-5.2) mmol/L Chloride (98-107) mmol/L Carbon Dioxide (22-30) mmol/L Anion Gap (10-20) BUN (7-17) mg/dL Creatinine (0.7-1.2) MG/DL Est GFR ( Amer) Est GFR (Non-Af Amer) POC Glucose (mg/dL) (65-110) mg/dL Random Glucose (65-105) mg/dL Calcium (8.6-10.4) mg/dl Phosphorus (2.5-4.5) mg/dL Magnesium (1.6-2.3) mg/dL Total Bilirubin (0.2-1.3) mg/dL AST (14-36) U/L ALT (9-52) U/L Alkaline Phosphatase (38-126) U/L Total Protein (6.3-8.3) g/dL Albumin (3.5-5.0) g/dL Globulin (2.2-3.9) gm/dL Albumin/Globulin Ratio (1.0-2.1) Venous Blood Potassium (3.6-5.2) mmol/L 09/02/16 Range/Units 00:27 WBC (4.8-10.8) K/uL RBC (3.80-5.20) Mil/uL Hgb (11.0-16.0) g/dL Hct (34.0-47.0) % MCV (81.0-99.0) fL MCH (27.0-31.0) pg MCHC (33.0-37.0) g/dL RDW (11.5-14.5) % Plt Count (130-400) K/uL MPV (7.2-11.7) fL Neut % (Auto) (50.0-75.0) % Lymph % (Auto) (20.0-40.0) % Thomas % (Auto) (0.0-10.0) % Eos % (Auto) (0.0-4.0) % Baso % (Auto) (0.0-2.0) % Neut # (1.8-7.0) K/uL Lymph # (1.0-4.3) K/uL Thomas # (0.0-0.8) K/uL Eos # (0.0-0.7) K/uL Baso # (0.0-0.2) K/uL PT (9.7-12.2) SECONDS INR Puncture Site pCO2 (35-45) mm/Hg pO2 (80-100) mm/Hg HCO3 (21-28) mmol/L ABG pH (7.35-7.45) ABG Total CO2 (22-28) mmol/L ABG O2 Saturation (95-98) % ABG Base Excess (-2.0-3.0) mmol/L ABG Hemoglobin (11.7-17.4) g/dL ABG Carboxyhemoglobin (0.5-1.5) % POC ABG HHb (Measured) (0.0-5.0) % ABG Methemoglobin (0.0-3.0) % Gumaro Test VBG pH (7.32-7.43) VBG pCO2 (40-60) mmHg VBG HCO3 mmol/L VBG Total CO2 (22-28) mmol/L VBG O2 Sat (Calc) (40-65) % VBG Base Excess (0.0-2.0) mmol/L VBG Potassium (3.6-5.2) mmol/L A-a O2 Difference mm/Hg Respiratory Index Hgb O2 Saturation (95.0-98.0) % Glucose (65-105) mg/dl Lactate (0.7-2.1) mmol/L Mechanical Rate FiO2 % Tidal Volume PEEP Crit Value Called To Crit Value Called By Crit Value Read Back Blood Gas Notified Time Sodium (132-148) mmol/L Potassium (3.6-5.2) mmol/L Chloride (98-107) mmol/L Carbon Dioxide (22-30) mmol/L Anion Gap (10-20) BUN (7-17) mg/dL Creatinine (0.7-1.2) MG/DL Est GFR ( Amer) Est GFR (Non-Af Amer) POC Glucose (mg/dL) 72 (65-110) mg/dL Random Glucose (65-105) mg/dL Calcium (8.6-10.4) mg/dl Phosphorus (2.5-4.5) mg/dL Magnesium (1.6-2.3) mg/dL Total Bilirubin (0.2-1.3) mg/dL AST (14-36) U/L ALT (9-52) U/L Alkaline Phosphatase (38-126) U/L Total Protein (6.3-8.3) g/dL Albumin (3.5-5.0) g/dL Globulin (2.2-3.9) gm/dL Albumin/Globulin Ratio (1.0-2.1) Venous Blood Potassium (3.6-5.2) mmol/L Laboratory Results - last 24 hr 09/02/16 09/02/16 09/02/16 00:27 02:39 06:05 WBC 4.8 RBC 2.56 L Hgb 8.8 L Hct 27.8 L MCV 108.7 H MCH 34.2 H MCHC 31.5 L RDW 19.0 H Plt Count 85 L MPV 9.9 Neut % (Auto) 75.2 H Lymph % (Auto) 13.6 L Thomas % (Auto) 9.9 Eos % (Auto) 0.4 Baso % (Auto) 0.9 Neut # 3.6 Lymph # 0.7 L Thomas # 0.5 Eos # 0.0 Baso # 0.0 PT INR Puncture Site L bra pCO2 20 L pO2 144 H HCO3 26.7 ABG pH 7.66 H* ABG Total CO2 23.1 ABG O2 Saturation 99.1 H ABG Base Excess 2.3 ABG Hemoglobin 7.8 L ABG Carboxyhemoglobin 1.4 POC ABG HHb (Measured) 0.9 ABG Methemoglobin 1.2 Gumaro Test Na VBG pH VBG pCO2 VBG HCO3 VBG Total CO2 VBG O2 Sat (Calc) VBG Base Excess VBG Potassium A-a O2 Difference 188.0 Respiratory Index 1.3 Hgb O2 Saturation 96.6 Glucose Lactate Mechanical Rate 20 FiO2 50.0 Tidal Volume 500 PEEP 5 Crit Value Called To Lizzy helton rn Crit Value Called By Piper germain rt Crit Value Read Back Y Blood Gas Notified Time 559 Sodium Potassium Chloride Carbon Dioxide Anion Gap BUN Creatinine Est GFR ( Amer) Est GFR (Non-Af Amer) POC Glucose (mg/dL) 72 Random Glucose Calcium Phosphorus Magnesium Total Bilirubin AST ALT Alkaline Phosphatase Total Protein Albumin Globulin Albumin/Globulin Ratio Venous Blood Potassium 09/02/16 09/02/16 09/02/16 06:05 06:05 08:11 WBC RBC Hgb Hct MCV MCH MCHC RDW Plt Count MPV Neut % (Auto) Lymph % (Auto) Thomas % (Auto) Eos % (Auto) Baso % (Auto) Neut # Lymph # Thomas # Eos # Baso # PT 24.4 H INR 2.1 Puncture Site pCO2 pO2 52 HCO3 ABG pH ABG Total CO2 ABG O2 Saturation ABG Base Excess ABG Hemoglobin ABG Carboxyhemoglobin POC ABG HHb (Measured) ABG Methemoglobin Gumaro Test VBG pH 7.65 H VBG pCO2 20 L VBG HCO3 27.3 VBG Total CO2 22.6 VBG O2 Sat (Calc) 96.0 H VBG Base Excess 3.2 H VBG Potassium 2.3 L* A-a O2 Difference Respiratory Index Hgb O2 Saturation Glucose 88 Lactate 1.1 Mechanical Rate FiO2 50.0 Tidal Volume PEEP 5 Crit Value Called To Dr garcia Crit Value Called By Joyce garcia volunteer assistant Crit Value Read Back Y Blood Gas Notified Time 820 Sodium 136 144.0 Potassium 3.2 L Chloride 97 L 113.0 H Carbon Dioxide 24 Anion Gap 18 BUN 24 H Creatinine 2.1 H Est GFR ( Amer) 29 Est GFR (Non-Af Amer) 24 POC Glucose (mg/dL) Random Glucose 98 Calcium 8.4 L Phosphorus 0.7 L* Magnesium 1.9 Total Bilirubin 1.5 H AST 51 H D ALT 22 Alkaline Phosphatase 142 H Total Protein 7.5 Albumin 3.7 Globulin 3.8 Albumin/Globulin Ratio 1.0 Venous Blood Potassium 2.3 L* 09/02/16 08:59 WBC RBC Hgb Hct MCV MCH MCHC RDW Plt Count MPV Neut % (Auto) Lymph % (Auto) Thomas % (Auto) Eos % (Auto) Baso % (Auto) Neut # Lymph # Thomas # Eos # Baso # PT INR Puncture Site pCO2 pO2 HCO3 ABG pH ABG Total CO2 ABG O2 Saturation ABG Base Excess ABG Hemoglobin ABG Carboxyhemoglobin POC ABG HHb (Measured) ABG Methemoglobin Gumaro Test VBG pH VBG pCO2 VBG HCO3 VBG Total CO2 VBG O2 Sat (Calc) VBG Base Excess VBG Potassium A-a O2 Difference Respiratory Index Hgb O2 Saturation Glucose Lactate Mechanical Rate FiO2 Tidal Volume PEEP Crit Value Called To Crit Value Called By Crit Value Read Back Blood Gas Notified Time Sodium 138 Potassium 3.3 L Chloride 101 Carbon Dioxide 22 Anion Gap 18 BUN 25 H Creatinine 2.2 H Est GFR ( Amer) 27 Est GFR (Non-Af Amer) 22 POC Glucose (mg/dL) Random Glucose 103 Calcium 8.6 Phosphorus 0.6 L* Magnesium Total Bilirubin 1.8 H AST 52 H ALT 25 Alkaline Phosphatase 139 H Total Protein 7.5 Albumin 3.6 Globulin 4.0 H Albumin/Globulin Ratio 0.9 L Venous Blood Potassium Review of Systems - Review of Systems Systems not reviewed;Unavailable: Intubated Critical Care Progress Note - Ventilator Checklist Head of Bed 30 Degrees: Yes Daily Sedation Vacation: Yes Daily Assessment of Readiness to Wean: Yes Daily Spontaneous Breathing Trial: Yes PUD Prophalyxis: Yes DVT Prophylaxis: Yes - Nutrition Nutrition: Nutrition Category Date Time Status NPO Diet [DIET] Diets 09/01/16 Breakfast Active Assessment/Plan (1) Respiratory failure Assessment and plan: 66yo F. PMHx CAD, HTN, HLD, ESRD on HD (T//), right AV shunt, arthritis, scleroderma, Asthma, COPD, CHF, glaucoma, afib, PPM, depression, failed kidney tx, who was admitted at the [facility] for three weeks and discharged on the day of this admission. p/w acute hypoxic respiratory failure and intubated. Neuro: Alert and following commands Pulm: Acute hypoxic respiratory failure,on PRVC. Patient appears to have persistent pulmonary edema, dialyzing to improve pulmonary mechanics. Hypoventilating today because of persistent pulmonary edema. CV: Hemodynamically stable. A. fib rate controlled with metoprolol po twice a day and amiodarone po daily. Hem: Anemia of chronic disease Renal: End-stage renal disease on hemodialysis, getting dialyzed daily currently. Endo: No acute issues GI: Nothing by mouth, tube feeds with novasource renal at goal. ID: No acute issues DVT proph - heparin sq GI proph - Pepcid sauceda for strict I/O's during acute illness Code status - full code Crtical Care Time spent 35 minutes Multi-disciplinary rounds were performed with house staff, nursing, speech therapy, respiratory therapy, pharmacy and nutrition with integrated input from the primary team/attending and other consulting services. The documented time is cumulative and includes review of patient data/exams/labs/chart review and examination of the patient on rounds and throughout the day; time is exclusive of any procedures or teaching time. Current Visit: Yes Status: Acute
[2016-09-02 22:55] LABS: BASO % 0.7 % (0.0-2.0); EOS % 0.5 % (0.0-4.0); HEMOGLOBIN 8.3 g/dL (11.0-16.0); LYMPH # 0.7 K/uL (1.0-4.3); LYMPH % 12.1 % (20.0-40.0); MEAN CELL VOLUME 107.3 fL (81.0-99.0); MEAN CORPUSCULAR HEMOGLOBIN 34.1 pg (27.0-31.0); MEAN CORPUSCULAR HGB CONC 31.8 g/dL (33.0-37.0); MEAN PLATELET VOLUME 8.7 fL (7.2-11.7); MONO # 0.5 K/uL (0.0-0.8); MONO % 9.1 % (0.0-10.0); NEUT # 4.5 K/uL (1.8-7.0); NEUT % 77.6 % (50.0-75.0); NRBC % 0.3 % (0.0-2.0); RBC 2.43 Mil/uL (3.80-5.20); RED CELL DISTRIBUTION WIDTH 19.3 % (11.5-14.5); WHITE BLOOD COUNT 5.8 K/uL (4.8-10.8)
[2016-09-02 22:56] LABS: VENOUS BLOOD GAS BASE EXCESS 10.5 mmol/L (0.0-2.0); VENOUS BLOOD GAS PCO2 32 mmHg (40-60); VENOUS BLOOD GAS PO2 32 mm/Hg (30-55); VENOUS BLOOD PH 7.61 (7.32-7.43)
[2016-09-02 23:11] LABS: CALCIUM 8.9 mg/dl (8.6-10.4)
[2016-09-03] MEDS: Albuterol-Ipratrop 3 mg / 0.5 (3 ml) UD INH SCH ×7 (00:11→23:49)
[2016-09-03] MEDS ORDERED: Midazolam 2 MG/2 ML VIAL IVP PRN (00:24)
[2016-09-03 06:24] LABS: BASO % 0.3 % (0.0-2.0); EOS % 0.7 % (0.0-4.0); HEMOGLOBIN 8.2 g/dL (11.0-16.0); LYMPH # 0.6 K/uL (1.0-4.3); MEAN CELL VOLUME 108.6 fL (81.0-99.0); MEAN CORPUSCULAR HEMOGLOBIN 33.9 pg (27.0-31.0); MEAN CORPUSCULAR HGB CONC 31.2 g/dL (33.0-37.0); MEAN PLATELET VOLUME 10.2 fL (7.2-11.7); MONO # 0.4 K/uL (0.0-0.8); MONO % 9.7 % (0.0-10.0); NEUT # 3.4 K/uL (1.8-7.0); NEUT % 76.3 % (50.0-75.0); NRBC % 0.3 % (0.0-2.0); RBC 2.41 Mil/uL (3.80-5.20); RED CELL DISTRIBUTION WIDTH 19.1 % (11.5-14.5); WHITE BLOOD COUNT 4.5 K/uL (4.8-10.8)
[2016-09-03 06:40] LABS: CALCIUM 8.7 mg/dl (8.6-10.4)
--- NOTE | 2016-09-03 08:36 | CARD ---
APPROVED REPORT EKG Measurement Heart [id number] <Conclusion> Ventricular-paced rhythm Abnormal ECG
--- NOTE | 2016-09-03 09:31 | RAD ---
HISTORY: vent COMPARISON: 09/02/2016 FINDINGS: The endotracheal tube terminates 1.0 cm proximal to the cristi. The nasogastric tube terminates in the stomach. LUNGS: There is persistent airspace disease in the right lower lobe. There is redemonstration of pulmonary venous congestion PLEURA: No significant pleural effusion identified, no pneumothorax apparent. CARDIOVASCULAR: Normal. OSSEOUS STRUCTURES: No significant abnormalities. VISUALIZED UPPER ABDOMEN: Normal. OTHER FINDINGS: None. IMPRESSION: Limited portable examination. No change in right lower lobe airspace disease. Mild pulmonary venous congestion, unchanged.
[2016-09-03 09:51] LABS: ARTERIAL BLOOD GAS HCO3 29.7 mmol/L (21-28); ARTERIAL BLOOD GAS HEMOGLOBIN 7.9 g/dL (11.7-17.4); ARTERIAL BLOOD GAS O2 SAT 98.8 % (95-98); ARTERIAL BLOOD GAS PCO2 31 mm/Hg (35-45); ARTERIAL BLOOD GAS PH 7.57 (7.35-7.45); ARTERIAL BLOOD GAS PO2 99 mm/Hg (80-100); ARTERIAL BLOOD GAS TCO2 29.4 mmol/L (22-28)
--- NOTE | 2016-09-03 18:16 | CP.CCUPN ---
CCU Subjective - Physician Review Events Since Last Encounter (Free Text): 09/03/16 18:15 Patient with asthma COPD heart failure hypertension end-stage renal disease on dialysis admitted with respiratory failure. Currently on ventilator. Patient is awake and responding. Significant constipation noted. Patient x-ray showing still worsening infiltrative changes, versus congestion. We'll continue the current treatment. Supportive care. We will attempt the CPAP trial tomorrow. CCU Objective - Vital Signs / Intake & Output Intake and Output (Last 8hrs): Intake & Output 09/03/16 09/03/16 09/03/16 06:59 14:59 22:59 Intake Total 520 420 Output Total 0 Balance 520 420 Weight 138 lb Intake: Intake, IV Amount 200 100 Left External Jugular 200 100 Tube Feeding 320 320 Output: Stool 0 - Physical Exam Narrative Physical Exam (Free Text): 09/03/16 18:15 Vital signs reviewed No neck vein distention noted Bilateral wheezing noted CVS regular heart sound, no murmur noted Abdomen soft, nontender. Extremities no pedal edema Awake and responding. Head: Positive for: Atraumatic, Normocephalic Pupils: Positive for: PERRL Extroacular Muscles: Positive for: EOMI Mouth: Positive for: Moist Mucous Membranes Pharnyx: Positive for: Normal Respiratory/Chest: Positive for: Decreased Breath Sounds, Rhonchi Cardiovascular: Positive for: Regular Rate and Rhythm Abdomen: Positive for: Normal Bowel Sounds. Negative for: Tenderness, Distention Upper Extremity: Positive for: Normal Inspection Lower Extremity: Positive for: Normal Inspection Neurological: Positive for: Motor Func Grossly Intact Psychiatric: Positive for: Alert - Medications Active Medications: Active Medications Generic Name Dose Route Start Last Admin Trade Name Freq PRN Reason Stop Dose Admin Albuterol/Ipratropium 3 ml 09/01/16 04:00 09/03/16 15:59 Duoneb 3 Mg/0.5 Mg (3 Ml) Ud INH 3 ml RQ4 NEVAEH Administration Albuterol/Ipratropium 3 ml 09/01/16 02:20 Duoneb 3 Mg/0.5 Mg (3 Ml) Ud INH RQ2 PRN Shortness of Breath Amiodarone HCl 200 mg 09/01/16 10:00 09/03/16 10:38 Cordarone PO Not Given DAILY NEVAEH Calcium Acetate 1,334 mg 09/01/16 08:00 09/03/16 07:50 Phoslo PO Not Given BIDCC [facility] Clopidogrel Bisulfate 75 mg 09/01/16 10:00 09/03/16 10:15 Plavix PO 75 mg DAILY NEVAEH Administration Docusate Sodium 100 mg 09/01/16 01:47 09/02/16 12:37 Colace PO 100 mg BID PRN Administration Constipation Famotidine 20 mg 09/01/16 10:00 09/03/16 10:13 Pepcid PO 20 mg DAILY NEVAEH Administration Folic Acid 1 mg 09/01/16 10:00 09/03/16 10:13 Folic Acid NG 1 mg DAILY NEVAEH Administration Heparin Sodium (Porcine) 5,000 units 09/02/16 22:00 09/03/16 10:12 Heparin SC 5,000 units Q12 NEVAEH Administration Propofol 1,000 mg in 100 mls @ 2.381 mls/hr 08/31/16 23:49 09/01/16 12:53 Diprivan IV 0 mcg/kg/min .Q24H PRN 0 mls/hr TITRATE PER MD ORDER Titration Protocol 5 MCG/KG/MIN Ceftriaxone Sodium 1 gm/ 100 mls @ 100 mls/hr 09/02/16 22:45 09/03/16 10:15 Sodium Chloride IVPB 100 mls/hr DAILY NEVAEH Administration Doxycycline Hyclate 100 mg/ 100 mls @ 100 mls/hr 09/02/16 23:30 09/03/16 11: 33 Sodium Chloride IVPB 100 mls/hr Q12H NEVAEH Administration Metoprolol Tartrate 25 mg 09/01/16 10:00 09/03/16 10:13 Lopressor PO Not Given BID [facility] Midazolam HCl 2 mg 09/03/16 00:24 09/03/16 00:45 Versed Inj IVP 2 mg Q1H PRN Administration Agitation - Patient Studies Lab Studies: Microbiology Studies 09/02/16 13:30 Blood Culture - Preliminary Blood-Venous NO GROWTH AFTER 24 HOURS 09/02/16 13:30 Blood Culture - Preliminary Blood-Venous NO GROWTH AFTER 24 HOURS 09/01/16 02:12 MRSA Culture (Admit) - Final Nose MRSA NOT DETECTED Lab Studies 09/03/16 09/03/16 09/03/16 Range/Units 06:16 06:16 05:55 WBC 4.5 L (4.8-10.8) K/uL RBC 2.41 L (3.80-5.20) Mil/uL Hgb 8.2 L (11.0-16.0) g/dL Hct 26.2 L (34.0-47.0) % MCV 108.6 H (81.0-99.0) fL MCH 33.9 H (27.0-31.0) pg MCHC 31.2 L (33.0-37.0) g/dL RDW 19.1 H (11.5-14.5) % Plt Count 84 L (130-400) K/uL MPV 10.2 (7.2-11.7) fL Neut % (Auto) 76.3 H (50.0-75.0) % Lymph % (Auto) 13.0 L (20.0-40.0) % [place] % (Auto) 9.7 (0.0-10.0) % Eos % (Auto) 0.7 (0.0-4.0) % Baso % (Auto) 0.3 (0.0-2.0) % Neut # 3.4 (1.8-7.0) K/uL Lymph # 0.6 L (1.0-4.3) K/uL [place] # 0.4 (0.0-0.8) K/uL Eos # 0.0 (0.0-0.7) K/uL Baso # 0.0 (0.0-0.2) K/uL Differential Comment Puncture Site Lb pCO2 31 L (35-45) mm/Hg pO2 99 (30-55) mm/Hg HCO3 29.7 H (21-28) mmol/L ABG pH 7.57 H (7.35-7.45) ABG Total CO2 29.4 H (22-28) mmol/L ABG O2 Saturation 98.8 H (95-98) % ABG Base Excess 6.1 H (-2.0-3.0) mmol/L ABG Hemoglobin 7.9 L (11.7-17.4) g/dL ABG Carboxyhemoglobin 1.7 H (0.5-1.5) % POC ABG HHb (Measured) 1.2 (0.0-5.0) % ABG Methemoglobin 1.6 (0.0-3.0) % Gumaro Test Na VBG pH (7.32-7.43) VBG pCO2 (40-60) mmHg VBG HCO3 mmol/L VBG O2 Sat (Calc) (40-65) % VBG Base Excess (0.0-2.0) mmol/L A-a O2 Difference 219.0 mm/Hg Respiratory Index 2.2 Hgb O2 Saturation 95.5 (95.0-98.0) % Mechanical Rate 12 FiO2 50.0 % Tidal Volume 350 PEEP 5 Crit Value Called To Dr phillips Crit Value Called By Joyce garcia bilingual speech language pathologist Crit Value Read Back Y Blood Gas Notified Time 955 Sodium 137 (132-148) mmol/L Potassium 2.8 L (3.6-5.2) mmol/L Chloride 95 L (98-107) mmol/L Carbon Dioxide 29 (22-30) mmol/L Anion Gap 16 (10-20) BUN 23 H (7-17) mg/dL Creatinine 1.8 H (0.7-1.2) MG/DL Est GFR ( Amer) 34 Est GFR (Non-Af Amer) 28 Random Glucose 107 H (65-105) mg/dL Calcium 8.7 (8.6-10.4) mg/dl Phosphorus 1.1 L (2.5-4.5) mg/dL Magnesium 2.0 (1.6-2.3) mg/dL Total Bilirubin 1.4 H (0.2-1.3) mg/dL AST 31 (14-36) U/L ALT 15 (9-52) U/L Alkaline Phosphatase 143 H (38-126) U/L Total Protein 7.9 (6.3-8.3) g/dL Albumin 4.0 (3.5-5.0) g/dL Globulin 3.9 (2.2-3.9) gm/dL Albumin/Globulin Ratio 1.0 (1.0-2.1) Procalcitonin (0.19-0.49) NG/ML 09/02/16 09/02/16 09/02/16 Range/Units 22:51 22:51 22:51 WBC 5.8 (4.8-10.8) K/uL RBC 2.43 L (3.80-5.20) Mil/uL Hgb 8.3 L (11.0-16.0) g/dL Hct 26.1 L (34.0-47.0) % MCV 107.3 H (81.0-99.0) fL MCH 34.1 H (27.0-31.0) pg MCHC 31.8 L (33.0-37.0) g/dL RDW 19.3 H (11.5-14.5) % Plt Count 98 L (130-400) K/uL MPV 8.7 (7.2-11.7) fL Neut % (Auto) 77.6 H (50.0-75.0) % Lymph % (Auto) 12.1 L (20.0-40.0) % [place] % (Auto) 9.1 (0.0-10.0) % Eos % (Auto) 0.5 (0.0-4.0) % Baso % (Auto) 0.7 (0.0-2.0) % Neut # 4.5 (1.8-7.0) K/uL Lymph # 0.7 L (1.0-4.3) K/uL [place] # 0.5 (0.0-0.8) K/uL Eos # 0.0 (0.0-0.7) K/uL Baso # 0.0 (0.0-0.2) K/uL Differential Comment Puncture Site pCO2 (35-45) mm/Hg pO2 (30-55) mm/Hg HCO3 (21-28) mmol/L ABG pH (7.35-7.45) ABG Total CO2 (22-28) mmol/L ABG O2 Saturation (95-98) % ABG Base Excess (-2.0-3.0) mmol/L ABG Hemoglobin (11.7-17.4) g/dL ABG Carboxyhemoglobin (0.5-1.5) % POC ABG HHb (Measured) (0.0-5.0) % ABG Methemoglobin (0.0-3.0) % Gumaro Test VBG pH (7.32-7.43) VBG pCO2 (40-60) mmHg VBG HCO3 mmol/L VBG O2 Sat (Calc) (40-65) % VBG Base Excess (0.0-2.0) mmol/L A-a O2 Difference mm/Hg Respiratory Index Hgb O2 Saturation (95.0-98.0) % Mechanical Rate FiO2 % Tidal Volume PEEP Crit Value Called To Crit Value Called By Crit Value Read Back Blood Gas Notified Time Sodium 138 (132-148) mmol/L Potassium 2.7 L (3.6-5.2) mmol/L Chloride 98 (98-107) mmol/L Carbon Dioxide 27 (22-30) mmol/L Anion Gap 16 (10-20) BUN 18 H (7-17) mg/dL Creatinine 1.6 H (0.7-1.2) MG/DL Est GFR ( Amer) 39 Est GFR (Non-Af Amer) 32 Random Glucose 110 H (65-105) mg/dL Calcium 8.9 (8.6-10.4) mg/dl Phosphorus 1.7 L (2.5-4.5) mg/dL Magnesium 2.0 (1.6-2.3) mg/dL Total Bilirubin (0.2-1.3) mg/dL AST (14-36) U/L ALT (9-52) U/L Alkaline Phosphatase (38-126) U/L Total Protein (6.3-8.3) g/dL Albumin (3.5-5.0) g/dL Globulin (2.2-3.9) gm/dL Albumin/Globulin Ratio (1.0-2.1) Procalcitonin 1.32 H (0.19-0.49) NG/ML 09/02/16 Range/Units 22:45 WBC (4.8-10.8) K/uL RBC (3.80-5.20) Mil/uL Hgb (11.0-16.0) g/dL Hct (34.0-47.0) % MCV (81.0-99.0) fL MCH (27.0-31.0) pg MCHC (33.0-37.0) g/dL RDW (11.5-14.5) % Plt Count (130-400) K/uL MPV (7.2-11.7) fL Neut % (Auto) (50.0-75.0) % Lymph % (Auto) (20.0-40.0) % [place] % (Auto) (0.0-10.0) % Eos % (Auto) (0.0-4.0) % Baso % (Auto) (0.0-2.0) % Neut # (1.8-7.0) K/uL Lymph # (1.0-4.3) K/uL [place] # (0.0-0.8) K/uL Eos # (0.0-0.7) K/uL Baso # (0.0-0.2) K/uL Differential Comment Puncture Site Venous pCO2 (35-45) mm/Hg pO2 32 (30-55) mm/Hg HCO3 (21-28) mmol/L ABG pH (7.35-7.45) ABG Total CO2 (22-28) mmol/L ABG O2 Saturation (95-98) % ABG Base Excess (-2.0-3.0) mmol/L ABG Hemoglobin (11.7-17.4) g/dL ABG Carboxyhemoglobin (0.5-1.5) % POC ABG HHb (Measured) (0.0-5.0) % ABG Methemoglobin (0.0-3.0) % Gumaro Test Na VBG pH 7.61 H (7.32-7.43) VBG pCO2 32 L (40-60) mmHg VBG HCO3 32.5 mmol/L VBG O2 Sat (Calc) 75.5 H (40-65) % VBG Base Excess 10.5 H (0.0-2.0) mmol/L A-a O2 Difference mm/Hg Respiratory Index Hgb O2 Saturation (95.0-98.0) % Mechanical Rate FiO2 % Tidal Volume PEEP Crit Value Called To Crit Value Called By Crit Value Read Back Blood Gas Notified Time Sodium (132-148) mmol/L Potassium (3.6-5.2) mmol/L Chloride (98-107) mmol/L Carbon Dioxide (22-30) mmol/L Anion Gap (10-20) BUN (7-17) mg/dL Creatinine (0.7-1.2) MG/DL Est GFR ( Amer) Est GFR (Non-Af Amer) Random Glucose (65-105) mg/dL Calcium (8.6-10.4) mg/dl Phosphorus (2.5-4.5) mg/dL Magnesium (1.6-2.3) mg/dL Total Bilirubin (0.2-1.3) mg/dL AST (14-36) U/L ALT (9-52) U/L Alkaline Phosphatase (38-126) U/L Total Protein (6.3-8.3) g/dL Albumin (3.5-5.0) g/dL Globulin (2.2-3.9) gm/dL Albumin/Globulin Ratio (1.0-2.1) Procalcitonin (0.19-0.49) NG/ML Laboratory Results - last 24 hr 09/02/16 09/02/16 09/02/16 22:45 22:51 22:51 WBC 5.8 RBC 2.43 L Hgb 8.3 L Hct 26.1 L MCV 107.3 H MCH 34.1 H MCHC 31.8 L RDW 19.3 H Plt Count 98 L MPV 8.7 Neut % (Auto) 77.6 H Lymph % (Auto) 12.1 L [place] % (Auto) 9.1 Eos % (Auto) 0.5 Baso % (Auto) 0.7 Neut # 4.5 Lymph # 0.7 L [place] # 0.5 Eos # 0.0 Baso # 0.0 Differential Comment Puncture Site Venous pCO2 pO2 32 HCO3 ABG pH ABG Total CO2 ABG O2 Saturation ABG Base Excess ABG Hemoglobin ABG Carboxyhemoglobin POC ABG HHb (Measured) ABG Methemoglobin Gumaro Test Na VBG pH 7.61 H VBG pCO2 32 L VBG HCO3 32.5 VBG O2 Sat (Calc) 75.5 H VBG Base Excess 10.5 H A-a O2 Difference Respiratory Index Hgb O2 Saturation Mechanical Rate FiO2 Tidal Volume PEEP Crit Value Called To Crit Value Called By Crit Value Read Back Blood Gas Notified Time Sodium Potassium Chloride Carbon Dioxide Anion Gap BUN Creatinine Est GFR ( Amer) Est GFR (Non-Af Amer) Random Glucose Calcium Phosphorus Magnesium Total Bilirubin AST ALT Alkaline Phosphatase Total Protein Albumin Globulin Albumin/Globulin Ratio Procalcitonin 1.32 H 09/02/16 09/03/16 09/03/16 22:51 05:55 06:16 WBC 4.5 L RBC 2.41 L Hgb 8.2 L Hct 26.2 L MCV 108.6 H MCH 33.9 H MCHC 31.2 L RDW 19.1 H Plt Count 84 L MPV 10.2 Neut % (Auto) 76.3 H Lymph % (Auto) 13.0 L [place] % (Auto) 9.7 Eos % (Auto) 0.7 Baso % (Auto) 0.3 Neut # 3.4 Lymph # 0.6 L [place] # 0.4 Eos # 0.0 Baso # 0.0 Differential Comment Puncture Site Lb pCO2 31 L pO2 99 HCO3 29.7 H ABG pH 7.57 H ABG Total CO2 29.4 H ABG O2 Saturation 98.8 H ABG Base Excess 6.1 H ABG Hemoglobin 7.9 L ABG Carboxyhemoglobin 1.7 H POC ABG HHb (Measured) 1.2 ABG Methemoglobin 1.6 Gumaro Test Na VBG pH VBG pCO2 VBG HCO3 VBG O2 Sat (Calc) VBG Base Excess A-a O2 Difference 219.0 Respiratory Index 2.2 Hgb O2 Saturation 95.5 Mechanical Rate 12 FiO2 50.0 Tidal Volume 350 PEEP 5 Crit Value Called To Dr phillips Crit Value Called By Joyce garcia bilingual speech language pathologist Crit Value Read Back Y Blood Gas Notified Time 955 Sodium 138 Potassium 2.7 L Chloride 98 Carbon Dioxide 27 Anion Gap 16 BUN 18 H Creatinine 1.6 H Est GFR ( Amer) 39 Est GFR (Non-Af Amer) 32 Random Glucose 110 H Calcium 8.9 Phosphorus 1.7 L Magnesium 2.0 Total Bilirubin AST ALT Alkaline Phosphatase Total Protein Albumin Globulin Albumin/Globulin Ratio Procalcitonin 09/03/16 06:16 WBC RBC Hgb Hct MCV MCH MCHC RDW Plt Count MPV Neut % (Auto) Lymph % (Auto) [place] % (Auto) Eos % (Auto) Baso % (Auto) Neut # Lymph # [place] # Eos # Baso # Differential Comment Puncture Site pCO2 pO2 HCO3 ABG pH ABG Total CO2 ABG O2 Saturation ABG Base Excess ABG Hemoglobin ABG Carboxyhemoglobin POC ABG HHb (Measured) ABG Methemoglobin Gumaro Test VBG pH VBG pCO2 VBG HCO3 VBG O2 Sat (Calc) VBG Base Excess A-a O2 Difference Respiratory Index Hgb O2 Saturation Mechanical Rate FiO2 Tidal Volume PEEP Crit Value Called To Crit Value Called By Crit Value Read Back Blood Gas Notified Time Sodium 137 Potassium 2.8 L Chloride 95 L Carbon Dioxide 29 Anion Gap 16 BUN 23 H Creatinine 1.8 H Est GFR ( Amer) 34 Est GFR (Non-Af Amer) 28 Random Glucose 107 H Calcium 8.7 Phosphorus 1.1 L Magnesium 2.0 Total Bilirubin 1.4 H AST 31 ALT 15 Alkaline Phosphatase 143 H Total Protein 7.9 Albumin 4.0 Globulin 3.9 Albumin/Globulin Ratio 1.0 Procalcitonin Critical Care Progress Note - Nutrition Nutrition: Nutrition Category Date Time Status NPO Diet [DIET] Diets 09/01/16 Breakfast Active
[2016-09-04 06:35] LABS: BASO % 0.5 % (0.0-2.0); EOS # 0.1 K/uL (0.0-0.7); HEMOGLOBIN 7.8 g/dL (11.0-16.0); LYMPH # 0.5 K/uL (1.0-4.3); LYMPH % 15.5 % (20.0-40.0); MEAN CELL VOLUME 109.4 fL (81.0-99.0); MEAN CORPUSCULAR HEMOGLOBIN 33.8 pg (27.0-31.0); MEAN CORPUSCULAR HGB CONC 30.9 g/dL (33.0-37.0); MEAN PLATELET VOLUME 10.2 fL (7.2-11.7); MONO # 0.3 K/uL (0.0-0.8); NEUT # 2.4 K/uL (1.8-7.0); RBC 2.3 Mil/uL (3.80-5.20); RED CELL DISTRIBUTION WIDTH 19.4 % (11.5-14.5); WHITE BLOOD COUNT 3.3 K/uL (4.8-10.8)
[2016-09-04 06:43] LABS: VENOUS BLOOD GAS BASE EXCESS 7.5 mmol/L (0.0-2.0); VENOUS BLOOD GAS PCO2 50 mmHg (40-60); VENOUS BLOOD GAS PO2 37 mm/Hg (30-55); VENOUS BLOOD PH 7.43 (7.32-7.43)
[2016-09-04 07:20] LABS: ALBUMIN 3.7 g/dL (3.5-5.0)
[2016-09-04 07:23] LABS: ALB/GLOB RATIO 0.9 (1.0-2.1)
[2016-09-04 07:24] LABS: CALCIUM 7.8 mg/dl (8.6-10.4); MAGNESIUM 1.9 mg/dL (1.6-2.3)
[2016-09-04] MEDS: Albuterol-Ipratrop 3 mg / 0.5 (3 ml) UD INH SCH ×4 (08:01→19:46)
--- NOTE | 2016-09-04 08:56 | RAD ---
Chest x-ray single frontal view History: Intubated. Comparison: 09/03/2016 Findings: Endotracheal tube extending into the lower thoracic trachea approximately 8 millimeters from the cristi. Retraction approximately 1 centimeter may be helpful. NG tube extending into the stomach. Confluent airspace consolidative changes in the mid to lower lung zones bilaterally. Moderate venous congestion. Prominent bibasilar airspace opacities with moderate bilateral pleural effusions. Cardiomegaly. Left-sided pacemaker. Degenerative changes in the spine and shoulders. Surgical clips in the right upper abdomen. Impression: Endotracheal tube extending into the lower thoracic trachea approximately 8 millimeters from the cristi. Retraction approximately 1 centimeter may be helpful. NG tube extending into the stomach. Confluent airspace consolidative changes in the mid to lower lung zones bilaterally. Moderate venous congestion. Prominent bibasilar airspace opacities with moderate bilateral pleural effusions.
--- NOTE | 2016-09-04 09:01 | CP.CCUPN ---
CCU Subjective - Physician Review Events Since Last Encounter (Free Text): 09/04/16 09:00 Patient 66-year-old female CAD hypertension and scleroderma end-stage renal disease on dialysis possible CHF admitted with the acute respiratory failure. Intubated. Patient is still having worsening medical condition. FiO2 50%. Patient got dialysis 2 days ago. Awake and responding with stimuli minimal sedation CCU Objective - Vital Signs / Intake & Output Vital Signs (Last 4 hours): Vital Signs Pulse Resp BP Pulse Ox 09/04/16 06:00 66 19 100 09/04/16 05:54 61 20 91/42 L 100 Intake and Output (Last 8hrs): Intake & Output 09/03/16 09/04/16 09/04/16 22:59 06:59 14:59 Intake Total 320 320 40 Output Total 1 Balance 319 320 40 Weight 138 lb Intake: Tube Feeding 320 320 40 Output: Stool 1 - Physical Exam Narrative Physical Exam (Free Text): 09/04/16 09:00 Vital signs reviewed No neck vein distention noted Chest good air entry bilaterally, no wheezing or rales noted CVS regular heart sound, no murmur noted Abdomen soft, nontender. Extremities no pedal edema Minimal sedation Head: Positive for: Atraumatic, Normocephalic Pupils: Positive for: PERRL Extroacular Muscles: Positive for: EOMI Mouth: Positive for: Moist Mucous Membranes Pharnyx: Positive for: Normal Respiratory/Chest: Positive for: Decreased Breath Sounds, Rhonchi Cardiovascular: Positive for: Regular Rate and Rhythm Abdomen: Positive for: Normal Bowel Sounds. Negative for: Tenderness, Distention Upper Extremity: Positive for: Normal Inspection Lower Extremity: Positive for: Normal Inspection Neurological: Positive for: Motor Func Grossly Intact Psychiatric: Positive for: Alert - Medications Active Medications: Active Medications Generic Name Dose Route Start Last Admin Trade Name Freq PRN Reason Stop Dose Admin Albuterol/Ipratropium 3 ml 09/01/16 04:00 09/04/16 08:01 Duoneb 3 Mg/0.5 Mg (3 Ml) Ud INH 3 ml RQ4 [facility] Administration Amiodarone HCl 200 mg 09/01/16 10:00 09/03/16 10:38 Cordarone PO Not Given DAILY [facility] Calcium Acetate 1,334 mg 09/01/16 08:00 09/03/16 18:00 Phoslo PO Not Given BIDCC NEVAE[facility] Clopidogrel Bisulfate 75 mg 09/01/16 10:00 09/03/16 10:15 Plavix PO 75 mg DAILY [facility] Administration Docusate Sodium 100 mg 09/01/16 01:47 09/02/16 12:37 Colace PO 100 mg BID PRN Administration Constipation Famotidine 20 mg 09/01/16 10:00 09/03/16 10:13 Pepcid PO 20 mg DAILY [facility] Administration Folic Acid 1 mg 09/01/16 10:00 09/03/16 10:13 Folic Acid NG 1 mg DAILY [facility] Administration Heparin Sodium (Porcine) 5,000 units 09/02/16 22:00 09/03/16 21:28 Heparin SC 5,000 units Q12 [facility] Administration Propofol 1,000 mg in 100 mls @ 2.381 mls/hr 08/31/16 23:49 09/01/16 12:53 Diprivan IV 0 mcg/kg/min .Q24H PRN 0 mls/hr TITRATE PER MD ORDER Titration Protocol 5 MCG/KG/MIN Ceftriaxone Sodium 1 gm/ 100 mls @ 100 mls/hr 09/02/16 22:45 09/03/16 10:15 Sodium Chloride IVPB 100 mls/hr DAILY [facility] Administration Doxycycline Hyclate 100 mg/ 100 mls @ 100 mls/hr 09/02/16 23:30 09/03/16 22: 44 Sodium Chloride IVPB 100 mls/hr Q12H [facility] Administration Metoprolol Tartrate 25 mg 09/01/16 10:00 09/03/16 18:51 Lopressor PO Not Given BID [facility] Midazolam HCl 2 mg 09/03/16 00:24 09/03/16 00:45 Versed Inj IVP 2 mg Q1H PRN Administration Agitation - Patient Studies Lab Studies: Microbiology Studies 09/02/16 13:30 Blood Culture - Preliminary Blood-Venous NO GROWTH AFTER 24 HOURS 09/02/16 13:30 Blood Culture - Preliminary Blood-Venous NO GROWTH AFTER 24 HOURS Lab Studies 09/04/16 09/04/16 09/04/16 Range/Units 06:35 06:24 06:24 WBC 3.3 L (4.8-10.8) K/uL RBC 2.30 L (3.80-5.20) Mil/uL Hgb 7.8 L (11.0-16.0) g/dL Hct 25.1 L (34.0-47.0) % MCV 109.4 H (81.0-99.0) fL MCH 33.8 H (27.0-31.0) pg MCHC 30.9 L (33.0-37.0) g/dL RDW 19.4 H (11.5-14.5) % Plt Count 57 L D (130-400) K/uL MPV 10.2 (7.2-11.7) fL Neut % (Auto) 73.0 (50.0-75.0) % Lymph % (Auto) 15.5 L (20.0-40.0) % Darke % (Auto) 9.0 (0.0-10.0) % Eos % (Auto) 2.0 (0.0-4.0) % Baso % (Auto) 0.5 (0.0-2.0) % Neut # 2.4 (1.8-7.0) K/uL Lymph # 0.5 L (1.0-4.3) K/uL Darke # 0.3 (0.0-0.8) K/uL Eos # 0.1 (0.0-0.7) K/uL Baso # 0.0 (0.0-0.2) K/uL Puncture Site pCO2 (35-45) mm/Hg pO2 37 (80-100) mm/Hg HCO3 (21-28) mmol/L ABG pH (7.35-7.45) ABG Total CO2 (22-28) mmol/L ABG O2 Saturation (95-98) % ABG Base Excess (-2.0-3.0) mmol/L ABG Hemoglobin (11.7-17.4) g/dL ABG Carboxyhemoglobin (0.5-1.5) % POC ABG HHb (Measured) (0.0-5.0) % ABG Methemoglobin (0.0-3.0) % Gumaro Test VBG pH 7.43 (7.32-7.43) VBG pCO2 50 (40-60) mmHg VBG HCO3 30.1 mmol/L VBG Total CO2 34.7 H (22-28) mmol/L VBG O2 Sat (Calc) 76.1 H (40-65) % VBG Base Excess 7.5 H (0.0-2.0) mmol/L VBG Potassium 3.0 L (3.6-5.2) mmol/L A-a O2 Difference mm/Hg Respiratory Index Hgb O2 Saturation (95.0-98.0) % Glucose 97 (65-105) mg/dl Lactate 1.2 (0.7-2.1) mmol/L Mechanical Rate FiO2 50.0 % Tidal Volume PEEP 5 Crit Value Called To Crit Value Called By Crit Value Read Back Blood Gas Notified Time Sodium 140.0 137 (132-148) mmol/L Potassium 2.8 L (3.6-5.2) mmol/L Chloride 102.0 95 L (98-107) mmol/L Carbon Dioxide 28 (22-30) mmol/L Anion Gap 17 (10-20) BUN 41 H (7-17) mg/dL Creatinine 2.6 H (0.7-1.2) MG/DL Est GFR ( Amer) 22 Est GFR (Non-Af Amer) 18 Random Glucose 104 (65-105) mg/dL Calcium 7.8 L (8.6-10.4) mg/dl Phosphorus 1.7 L (2.5-4.5) mg/dL Magnesium 1.9 (1.6-2.3) mg/dL Total Bilirubin 0.9 (0.2-1.3) mg/dL AST 22 (14-36) U/L ALT 22 (9-52) U/L Alkaline Phosphatase 123 (38-126) U/L Total Protein 7.9 (6.3-8.3) g/dL Albumin 3.7 (3.5-5.0) g/dL Globulin 4.1 H (2.2-3.9) gm/dL Albumin/Globulin Ratio 0.9 L (1.0-2.1) Procalcitonin (0.19-0.49) NG/ML Venous Blood Potassium 3.0 L (3.6-5.2) mmol/L 09/03/16 09/02/16 Range/Units 05:55 22:51 WBC (4.8-10.8) K/uL RBC (3.80-5.20) Mil/uL Hgb (11.0-16.0) g/dL Hct (34.0-47.0) % MCV (81.0-99.0) fL MCH (27.0-31.0) pg MCHC (33.0-37.0) g/dL RDW (11.5-14.5) % Plt Count (130-400) K/uL MPV (7.2-11.7) fL Neut % (Auto) (50.0-75.0) % Lymph % (Auto) (20.0-40.0) % Darke % (Auto) (0.0-10.0) % Eos % (Auto) (0.0-4.0) % Baso % (Auto) (0.0-2.0) % Neut # (1.8-7.0) K/uL Lymph # (1.0-4.3) K/uL Darke # (0.0-0.8) K/uL Eos # (0.0-0.7) K/uL Baso # (0.0-0.2) K/uL Puncture Site Lb pCO2 31 L (35-45) mm/Hg pO2 99 (80-100) mm/Hg HCO3 29.7 H (21-28) mmol/L ABG pH 7.57 H (7.35-7.45) ABG Total CO2 29.4 H (22-28) mmol/L ABG O2 Saturation 98.8 H (95-98) % ABG Base Excess 6.1 H (-2.0-3.0) mmol/L ABG Hemoglobin 7.9 L (11.7-17.4) g/dL ABG Carboxyhemoglobin 1.7 H (0.5-1.5) % POC ABG HHb (Measured) 1.2 (0.0-5.0) % ABG Methemoglobin 1.6 (0.0-3.0) % Gumaro Test Na VBG pH (7.32-7.43) VBG pCO2 (40-60) mmHg VBG HCO3 mmol/L VBG Total CO2 (22-28) mmol/L VBG O2 Sat (Calc) (40-65) % VBG Base Excess (0.0-2.0) mmol/L VBG Potassium (3.6-5.2) mmol/L A-a O2 Difference 219.0 mm/Hg Respiratory Index 2.2 Hgb O2 Saturation 95.5 (95.0-98.0) % Glucose (65-105) mg/dl Lactate (0.7-2.1) mmol/L Mechanical Rate 12 FiO2 50.0 % Tidal Volume 350 PEEP 5 Crit Value Called To Dr phillips Crit Value Called By Joyce garcia buffing and polishing wheel repairer Crit Value Read Back Y Blood Gas Notified Time 955 Sodium (132-148) mmol/L Potassium (3.6-5.2) mmol/L Chloride (98-107) mmol/L Carbon Dioxide (22-30) mmol/L Anion Gap (10-20) BUN (7-17) mg/dL Creatinine (0.7-1.2) MG/DL Est GFR ( Amer) Est GFR (Non-Af Amer) Random Glucose (65-105) mg/dL Calcium (8.6-10.4) mg/dl Phosphorus (2.5-4.5) mg/dL Magnesium (1.6-2.3) mg/dL Total Bilirubin (0.2-1.3) mg/dL AST (14-36) U/L ALT (9-52) U/L Alkaline Phosphatase (38-126) U/L Total Protein (6.3-8.3) g/dL Albumin (3.5-5.0) g/dL Globulin (2.2-3.9) gm/dL Albumin/Globulin Ratio (1.0-2.1) Procalcitonin 1.32 H (0.19-0.49) NG/ML Venous Blood Potassium (3.6-5.2) mmol/L Laboratory Results - last 24 hr 09/02/16 09/03/16 09/04/16 22:51 05:55 06:24 WBC 3.3 L RBC 2.30 L Hgb 7.8 L Hct 25.1 L MCV 109.4 H MCH 33.8 H MCHC 30.9 L RDW 19.4 H Plt Count 57 L D MPV 10.2 Neut % (Auto) 73.0 Lymph % (Auto) 15.5 L Darke % (Auto) 9.0 Eos % (Auto) 2.0 Baso % (Auto) 0.5 Neut # 2.4 Lymph # 0.5 L Darke # 0.3 Eos # 0.1 Baso # 0.0 Puncture Site Lb pCO2 31 L pO2 99 HCO3 29.7 H ABG pH 7.57 H ABG Total CO2 29.4 H ABG O2 Saturation 98.8 H ABG Base Excess 6.1 H ABG Hemoglobin 7.9 L ABG Carboxyhemoglobin 1.7 H POC ABG HHb (Measured) 1.2 ABG Methemoglobin 1.6 Gumaro Test Na VBG pH VBG pCO2 VBG HCO3 VBG Total CO2 VBG O2 Sat (Calc) VBG Base Excess VBG Potassium A-a O2 Difference 219.0 Respiratory Index 2.2 Hgb O2 Saturation 95.5 Glucose Lactate Mechanical Rate 12 FiO2 50.0 Tidal Volume 350 PEEP 5 Crit Value Called To Dr phillips Crit Value Called By Joyce garcia buffing and polishing wheel repairer Crit Value Read Back Y Blood Gas Notified Time 955 Sodium Potassium Chloride Carbon Dioxide Anion Gap BUN Creatinine Est GFR ( Amer) Est GFR (Non-Af Amer) Random Glucose Calcium Phosphorus Magnesium Total Bilirubin AST ALT Alkaline Phosphatase Total Protein Albumin Globulin Albumin/Globulin Ratio Procalcitonin 1.32 H Venous Blood Potassium 09/04/16 09/04/16 06:24 06:35 WBC RBC Hgb Hct MCV MCH MCHC RDW Plt Count MPV Neut % (Auto) Lymph % (Auto) Darke % (Auto) Eos % (Auto) Baso % (Auto) Neut # Lymph # Darke # Eos # Baso # Puncture Site pCO2 pO2 37 HCO3 ABG pH ABG Total CO2 ABG O2 Saturation ABG Base Excess ABG Hemoglobin ABG Carboxyhemoglobin POC ABG HHb (Measured) ABG Methemoglobin Gumaro Test VBG pH 7.43 VBG pCO2 50 VBG HCO3 30.1 VBG Total CO2 34.7 H VBG O2 Sat (Calc) 76.1 H VBG Base Excess 7.5 H VBG Potassium 3.0 L A-a O2 Difference Respiratory Index Hgb O2 Saturation Glucose 97 Lactate 1.2 Mechanical Rate FiO2 50.0 Tidal Volume PEEP 5 Crit Value Called To Crit Value Called By Crit Value Read Back Blood Gas Notified Time Sodium 137 140.0 Potassium 2.8 L Chloride 95 L 102.0 Carbon Dioxide 28 Anion Gap 17 BUN 41 H Creatinine 2.6 H Est GFR ( Amer) 22 Est GFR (Non-Af Amer) 18 Random Glucose 104 Calcium 7.8 L Phosphorus 1.7 L Magnesium 1.9 Total Bilirubin 0.9 AST 22 ALT 22 Alkaline Phosphatase 123 Total Protein 7.9 Albumin 3.7 Globulin 4.1 H Albumin/Globulin Ratio 0.9 L Procalcitonin Venous Blood Potassium 3.0 L Assessment/Plan - Assessment and Plan (Free Text) Assessment: 66-year-old female hypertension CAD end-stage renal disease on dialysis scleroderma admitted with the acute hypoxic respiratory failure. Likely fluid overload. Pneumonia cannot be ruled out. Chest x-ray today showing evidence of bilateral effusion, and possible atelectasis and effusion and pneumonia. Continue the current treatment. We'll continue the current management including dialysis. After the dialysis today will try weaning process
[2016-09-04] MEDS ORDERED: Potassium Chloride 20 mEq/15 ml LIQ UD PO ONE (10:55)
--- NOTE | 2016-09-04 11:48 | CP.PCM.PN ---
Subjective - Date & Time of Evaluation Date of Evaluation: 09/04/16 Time of Evaluation: 11:46 - Subjective Subjective: seen and examined awake, responsive on vent fio2 50% bp low in 90-100 systolic cxr noted Objective - Vital Signs/Intake and Output Vital Signs (last 24 hours): Temp Pulse Resp BP Pulse Ox 98.5 F 60 19 86/53 L 100 09/04/16 04:00 09/04/16 10:54 09/04/16 10:54 09/04/16 11:01 09/04/16 10:54 Intake and Output: 09/04/16 09/04/16 06:59 18:59 Intake Total 480 160 Balance 480 160 - Medications Medications: Current Medications Albuterol/Ipratropium (Duoneb 3 Mg/0.5 Mg (3 Ml) Ud) 3 ml INH RQ4 [facility] Last Admin: 09/04/16 08:01 Dose: 3 ml Amiodarone HCl (Cordarone) 200 mg PO DAILY [facility] Last Admin: 09/04/16 11:07 Dose: 200 mg Calcium Acetate (Phoslo) 1,334 mg PO BIDCC [facility] Last Admin: 09/04/16 11:02 Dose: Not Given Clopidogrel Bisulfate (Plavix) 75 mg PO DAILY [facility] Last Admin: 09/04/16 11:07 Dose: 75 mg Docusate Sodium (Colace) 100 mg PO BID PRN PRN Reason: Constipation Last Admin: 09/04/16 11:08 Dose: 100 mg Famotidine (Pepcid) 20 mg PO DAILY [facility] Last Admin: 09/04/16 11:07 Dose: 20 mg Folic Acid (Folic Acid) 1 mg NG DAILY [facility] Last Admin: 09/04/16 11:08 Dose: 1 mg Heparin Sodium (Porcine) (Heparin) 5,000 units SC Q12 [facility] Last Admin: 09/04/16 11:08 Dose: 5,000 units Propofol (Diprivan) 1,000 mg in 100 mls @ 2.381 mls/hr IV .Q24H PRN; Protocol; 5 MCG/KG/MIN PRN Reason: TITRATE PER MD ORDER Last Titration: 09/01/16 12:53 Dose: 0 mcg/kg/min, 0 mls/hr Ceftriaxone Sodium 1 gm/ (Sodium Chloride) 100 mls @ 100 mls/hr IVPB DAILY [facility] Last Admin: 09/04/16 11:09 Dose: 100 mls/hr Doxycycline Hyclate 100 mg/ (Sodium Chloride) 100 mls @ 100 mls/hr IVPB Q12H [facility] Last Admin: 09/03/16 22:44 Dose: 100 mls/hr Potassium Chloride (Potassium Chloride 20 Meq/100 Ml) 20 meq in 100 mls @ 50 mls/hr IVPB ONCE ONE Stop: 09/04/16 12:53 Last Admin: 09/04/16 11:07 Dose: 50 mls/hr Metoprolol Tartrate (Lopressor) 25 mg PO BID [facility] Last Admin: 09/04/16 11:01 Dose: Not Given Midazolam HCl (Versed Inj) 2 mg IVP Q1H PRN PRN Reason: Agitation Last Admin: 09/03/16 00:45 Dose: 2 mg - Labs Labs: 09/04/16 06:24 09/04/16 06:24 PT 24.4 SECONDS (9.7-12.2) H 09/02/16 06:05 INR 2.1 09/02/16 06:05 APTT 50 SECONDS (21-34) H 09/01/16 00:07 - Constitutional Appears: No Acute Distress, Older Than Stated Age, Chronically Ill - Head Exam Head Exam: NORMAL INSPECTION - Eye Exam Eye Exam: Normal appearance - ENT Exam Additional comments: et tube - Neck Exam Neck Exam: Normal Inspection - Respiratory Exam Respiratory Exam: Decreased Breath Sounds, Rales (mechanical vent sounds) - Cardiovascular Exam Cardiovascular Exam: REGULAR RHYTHM - GI/Abdominal Exam GI & Abdominal Exam: Distended, Soft - Extremities Exam Additional comments: + edema chronic skin changes Assessment and Plan (1) ESRD (end stage renal disease) on dialysis Status: Acute (2) Respiratory failure Status: Acute (3) Anemia Status: Acute (4) Atrial fibrillation Status: Acute (5) Chronic pain Status: Acute (6) ESRD on hemodialysis Status: Acute (7) Fibrosing dermatitis Status: Acute - Assessment and Plan (Free Text) Assessment: hd today, for ultrafiltration as tolerated hold metoprolol, start midodrine for bp vent wean off
[2016-09-04] MEDS ORDERED: Albumin Human 25% (12.5 gm/50 ml) IV STA (14:54)
--- NOTE | 2016-09-04 17:13 | CP.PCM.PN ---
Subjective - Date & Time of Evaluation Date of Evaluation: 09/04/16 Time of Evaluation: 13:00 - Subjective Subjective: clinically same Objective - Vital Signs/Intake and Output Vital Signs (last 24 hours): Temp Pulse Resp BP Pulse Ox 98.5 F 60 22 87/50 L 100 09/04/16 15:10 09/04/16 15:40 09/04/16 15:40 09/04/16 17:00 09/04/16 15:40 Intake and Output: 09/04/16 09/04/16 06:59 18:59 Intake Total 480 660 Balance 480 660 - Medications Medications: Current Medications Albuterol/Ipratropium (Duoneb 3 Mg/0.5 Mg (3 Ml) Ud) 3 ml INH RQ4 [facility] Last Admin: 09/04/16 12:51 Dose: 3 ml Amiodarone HCl (Cordarone) 200 mg PO DAILY [facility] Last Admin: 09/04/16 11:07 Dose: 200 mg Calcium Acetate (Phoslo) 1,334 mg PO BIDCC [facility] Last Admin: 09/04/16 11:02 Dose: Not Given Clopidogrel Bisulfate (Plavix) 75 mg PO DAILY [facility] Last Admin: 09/04/16 11:07 Dose: 75 mg Docusate Sodium (Colace) 100 mg PO BID PRN PRN Reason: Constipation Last Admin: 09/04/16 11:08 Dose: 100 mg Famotidine (Pepcid) 20 mg PO DAILY [facility] Last Admin: 09/04/16 11:07 Dose: 20 mg Folic Acid (Folic Acid) 1 mg NG DAILY [facility] Last Admin: 09/04/16 11:08 Dose: 1 mg Heparin Sodium (Porcine) (Heparin) 5,000 units SC Q12 [facility] Last Admin: 09/04/16 11:08 Dose: 5,000 units Propofol (Diprivan) 1,000 mg in 100 mls @ 2.381 mls/hr IV .Q24H PRN; Protocol; 5 MCG/KG/MIN PRN Reason: TITRATE PER MD ORDER Last Titration: 09/01/16 12:53 Dose: 0 mcg/kg/min, 0 mls/hr Ceftriaxone Sodium 1 gm/ (Sodium Chloride) 100 mls @ 100 mls/hr IVPB DAILY [facility] Last Admin: 09/04/16 11:09 Dose: 100 mls/hr Doxycycline Hyclate 100 mg/ (Sodium Chloride) 100 mls @ 100 mls/hr IVPB Q12H [facility] Last Admin: 09/04/16 13:09 Dose: 100 mls/hr Metoprolol Tartrate (Lopressor) 25 mg PO BID [facility] Last Admin: 09/04/16 11:01 Dose: Not Given Midazolam HCl (Versed Inj) 2 mg IVP Q1H PRN PRN Reason: Agitation Last Admin: 09/03/16 00:45 Dose: 2 mg Midodrine (Proamatine) 10 mg PO TID [facility] Last Admin: 09/04/16 13:10 Dose: 10 mg - Labs Labs: 09/04/16 06:24 09/04/16 06:24 PT 24.4 SECONDS (9.7-12.2) H 09/02/16 06:05 INR 2.1 09/02/16 06:05 APTT 50 SECONDS (21-34) H 09/01/16 00:07 - Constitutional Appears: Well - Head Exam Head Exam: ATRAUMATIC, NORMAL INSPECTION, NORMOCEPHALIC - Eye Exam Eye Exam: EOMI, Normal appearance, PERRL Pupil Exam: NORMAL ACCOMODATION, PERRL - ENT Exam ENT Exam: Mucous Membranes Moist, Normal Exam - Neck Exam Neck Exam: Full ROM, Normal Inspection. absent: Lymphadenopathy - Respiratory Exam Respiratory Exam: Decreased Breath Sounds - Cardiovascular Exam Cardiovascular Exam: REGULAR RHYTHM, +S1, +S2 - GI/Abdominal Exam GI & Abdominal Exam: Soft, Diminished Bowel Sounds - Rectal Exam Rectal Exam: Deferred
[2016-09-04] MEDS: Acetaminophen 650mg/20.3ml solution UD PO PRN (20:33)
[2016-09-05] MEDS: Albuterol-Ipratrop 3 mg / 0.5 (3 ml) UD INH SCH ×6 (00:25→19:14)
[2016-09-05 05:38] LABS: ARTERIAL BLOOD GAS HEMOGLOBIN 7.1 g/dL (11.7-17.4); ARTERIAL BLOOD GAS O2 SAT 92.1 % (95-98); ARTERIAL BLOOD GAS PCO2 40 mm/Hg (35-45); ARTERIAL BLOOD GAS PH 7.44 (7.35-7.45); ARTERIAL BLOOD GAS PO2 37 mm/Hg (80-100); ARTERIAL BLOOD GAS TCO2 28.4 mmol/L (22-28)
[2016-09-05 06:14] LABS: BASO # 0.1 K/uL (0.0-0.2); BASO % 2.4 % (0.0-2.0); EOS # 0.1 K/uL (0.0-0.7); EOS % 2.1 % (0.0-4.0); LYMPH # 0.5 K/uL (1.0-4.3); LYMPH % 12.2 % (20.0-40.0); MEAN CELL VOLUME 110.9 fL (81.0-99.0); MEAN CORPUSCULAR HEMOGLOBIN 33.3 pg (27.0-31.0); MEAN CORPUSCULAR HGB CONC 30.1 g/dL (33.0-37.0); MEAN PLATELET VOLUME 10.2 fL (7.2-11.7); MONO # 0.4 K/uL (0.0-0.8); MONO % 9.6 % (0.0-10.0); NEUT # 2.7 K/uL (1.8-7.0); NEUT % 73.7 % (50.0-75.0); NRBC % 0.1 % (0.0-2.0); RBC 2.39 Mil/uL (3.80-5.20); RED CELL DISTRIBUTION WIDTH 19.9 % (11.5-14.5); WHITE BLOOD COUNT 3.7 K/uL (4.8-10.8)
[2016-09-05 06:51] LABS: ALBUMIN 4.3 g/dL (3.5-5.0)
[2016-09-05 06:55] LABS: MAGNESIUM 2.1 mg/dL (1.6-2.3)
--- NOTE | 2016-09-05 08:26 | RAD ---
Chest x-ray single frontal view History: Ventilator. Comparison: 09/04/2016 Findings: Endotracheal tube low lying approximately 1 centimeter from the cristi. Retraction approximately 1.5 centimeters is recommended. NG tube extending into the stomach. Prominent airspace consolidative changes in the mid to lower lung zones bilaterally with associated moderate bilateral pleural effusions. Cardiomegaly. Left-sided pacemaker. Calcification at the aortic knob. Left axillary stent in place. Degenerative changes in the spine and shoulders. Left-sided pacemaker. Impression: Endotracheal tube low lying approximately 1 centimeter from the cristi. Retraction approximately 1.5 centimeters is recommended. NG tube extending into the stomach. Prominent airspace consolidative changes in the mid to lower lung zones bilaterally with associated moderate bilateral pleural effusions. Cardiomegaly. Left-sided pacemaker.
--- NOTE | 2016-09-05 08:39 | CP.CCUPN ---
<Christina Clark - Last Filed: 09/05/16 16:37> CCU Subjective - Physician Review Subjective (Free Text): 09/05/16 16:37 Patient seen and examined at beside No acute events overnight as per nursing- patient is afebrile Intubated on vent (12, 50, 350, 5) alert and responsive Patient had HD today 09/05 as per //Sun schedule VSS ROS unobtainable CCU Objective - Vital Signs / Intake & Output Vital Signs (Last 4 hours): Vital Signs Pulse Resp BP Pulse Ox 09/05/16 07:11 60 12 100/52 L 100 09/05/16 06:11 60 15 76/45 L 100 09/05/16 06:00 60 22 100 09/05/16 05:11 60 21 79/44 L 100 Intake and Output (Last 8hrs): Intake & Output 09/04/16 09/05/16 09/05/16 22:59 06:59 14:59 Intake Total 440 480 40 Balance 440 480 40 Weight 134 lb 14.4 oz Intake: Intake, IV Amount 100 Left External Jugular 100 Tube Feeding 320 320 40 Other 120 60 Other: # Bowel Movements 0 0 0 - Physical Exam Head: Positive for: Atraumatic, Normocephalic Pupils: Positive for: PERRL Extroacular Muscles: Positive for: EOMI Conjunctiva: Positive for: Normal. Negative for: Injected, Icteric Mouth: Positive for: Dry Pharnyx: Positive for: Normal Neck: Negative for: JVD Respiratory/Chest: Positive for: Decreased Breath Sounds. Negative for: Wheezes , Rales, Rhonchi Cardiovascular: Positive for: Normal S1, S2, Irregular Rhythm. Negative for: Murmurs Abdomen: Positive for: Normal Bowel Sounds. Negative for: Tenderness, Distention Upper Extremity: Positive for: Normal Inspection. Negative for: Cyanosis, Edema Lower Extremity: Positive for: Normal Inspection. Negative for: Edema Neurological: Positive for: Motor Func Grossly Intact Skin: Positive for: Warm, Dry, Normal Color Psychiatric: Positive for: Alert - Medications Active Medications: Active Medications Generic Name Dose Route Start Last Admin Trade Name Freq PRN Reason Stop Dose Admin Acetaminophen 650 mg 09/04/16 20:01 09/04/16 20:33 Tylenol 650mg/20.3ml Solution Ud PO 650 mg Q4 PRN Administration Headache Albuterol/Ipratropium 3 ml 09/01/16 04:00 09/05/16 07:48 Duoneb 3 Mg/0.5 Mg (3 Ml) Ud INH 3 ml RQ4 NEVAEH Administration Amiodarone HCl 200 mg 09/01/16 10:00 09/04/16 11:07 Cordarone PO 200 mg DAILY NEVAEH Administration Calcium Acetate 1,334 mg 09/01/16 08:00 09/04/16 18:38 Phoslo PO Not Given BIDCC NEVAEH Clopidogrel Bisulfate 75 mg 09/01/16 10:00 09/04/16 11:07 Plavix PO 75 mg DAILY NEVAEH Administration Docusate Sodium 100 mg 09/01/16 01:47 09/04/16 11:08 Colace PO 100 mg BID PRN Administration Constipation Famotidine 20 mg 09/01/16 10:00 09/04/16 11:07 Pepcid PO 20 mg DAILY NEVAEH Administration Folic Acid 1 mg 09/01/16 10:00 09/04/16 11:08 Folic Acid NG 1 mg DAILY NEVAEH Administration Heparin Sodium (Porcine) 5,000 units 09/02/16 22:00 09/04/16 22:37 Heparin SC 5,000 units Q12 NEVAEH Administration Propofol 1,000 mg in 100 mls @ 2.381 mls/hr 08/31/16 23:49 09/01/16 12:53 Diprivan IV 0 mcg/kg/min .Q24H PRN 0 mls/hr TITRATE PER MD ORDER Titration Protocol 5 MCG/KG/MIN Ceftriaxone Sodium 1 gm/ 100 mls @ 100 mls/hr 09/02/16 22:45 09/04/16 11:09 Sodium Chloride IVPB 100 mls/hr DAILY NEVAEH Administration Doxycycline Hyclate 100 mg/ 100 mls @ 100 mls/hr 09/02/16 23:30 09/04/16 23: 34 Sodium Chloride IVPB 100 mls/hr Q12H NEVAEH Administration Metoprolol Tartrate 25 mg 09/01/16 10:00 09/04/16 18:37 Lopressor PO Not Given BID NEVAEH Midazolam HCl 2 mg 09/03/16 00:24 09/03/16 00:45 Versed Inj IVP 2 mg Q1H PRN Administration Agitation Midodrine 10 mg 09/04/16 14:00 09/04/16 18:38 Proamatine PO 10 mg TID NEVAEH Administration - Patient Studies Lab Studies: Microbiology Studies 09/02/16 13:30 Blood Culture - Preliminary Blood-Venous NO GROWTH AFTER 48 HOURS 09/02/16 13:30 Blood Culture - Preliminary Blood-Venous NO GROWTH AFTER 48 HOURS Lab Studies 09/05/16 09/05/16 09/05/16 Range/Units 06:09 06:08 05:07 WBC 3.7 L (4.8-10.8) K/uL RBC 2.39 L (3.80-5.20) Mil/uL Hgb 8.0 L (11.0-16.0) g/dL Hct 26.5 L (34.0-47.0) % MCV 110.9 H (81.0-99.0) fL MCH 33.3 H (27.0-31.0) pg MCHC 30.1 L (33.0-37.0) g/dL RDW 19.9 H (11.5-14.5) % Plt Count 68 L (130-400) K/uL MPV 10.2 (7.2-11.7) fL Neut % (Auto) 73.7 (50.0-75.0) % Lymph % (Auto) 12.2 L (20.0-40.0) % [place] % (Auto) 9.6 (0.0-10.0) % Eos % (Auto) 2.1 (0.0-4.0) % Baso % (Auto) 2.4 H (0.0-2.0) % Neut # 2.7 (1.8-7.0) K/uL Lymph # 0.5 L (1.0-4.3) K/uL [place] # 0.4 (0.0-0.8) K/uL Eos # 0.1 (0.0-0.7) K/uL Baso # 0.1 (0.0-0.2) K/uL Puncture Site Lb pCO2 40 (35-45) mm/Hg pO2 37 L* (80-100) mm/Hg HCO3 27.0 (21-28) mmol/L ABG pH 7.44 (7.35-7.45) ABG Total CO2 28.4 H (22-28) mmol/L ABG O2 Saturation 92.1 L (95-98) % ABG Base Excess 2.8 (-2.0-3.0) mmol/L ABG Hemoglobin 7.1 L (11.7-17.4) g/dL ABG Carboxyhemoglobin 3.7 H (0.5-1.5) % POC ABG HHb (Measured) 7.5 H (0.0-5.0) % ABG Methemoglobin 1.9 (0.0-3.0) % Gumaro Test Na A-a O2 Difference 270.0 mm/Hg Respiratory Index 7.3 Hgb O2 Saturation 86.9 L (95.0-98.0) % Mechanical Rate 12 FiO2 50.0 % Tidal Volume 350 PEEP 5 Blood Gas Comments Possible mixed venous sample, pt is a very hard stick Crit Value Called To Arik rn Crit Value Called By Ghislaine property officer Crit Value Read Back Y Blood Gas Notified Time 537 Sodium 138 (132-148) mmol/L Potassium 4.2 (3.6-5.2) mmol/L Chloride 96 L (98-107) mmol/L Carbon Dioxide 31 H (22-30) mmol/L Anion Gap 15 (10-20) BUN 39 H (7-17) mg/dL Creatinine 2.3 H (0.7-1.2) MG/DL Est GFR ( Amer) 26 Est GFR (Non-Af Amer) 21 POC Glucose (mg/dL) (65-110) mg/dL Random Glucose 87 (65-105) mg/dL Calcium 8.0 L (8.6-10.4) mg/dl Phosphorus 1.8 L (2.5-4.5) mg/dL Magnesium 2.1 (1.6-2.3) mg/dL Total Bilirubin 1.0 (0.2-1.3) mg/dL AST 30 (14-36) U/L ALT 18 (9-52) U/L Alkaline Phosphatase 140 H (38-126) U/L Total Protein 8.4 H (6.3-8.3) g/dL Albumin 4.3 (3.5-5.0) g/dL Globulin 4.1 H (2.2-3.9) gm/dL Albumin/Globulin Ratio 1.0 (1.0-2.1) 09/05/16 Range/Units 00:02 WBC (4.8-10.8) K/uL RBC (3.80-5.20) Mil/uL Hgb (11.0-16.0) g/dL Hct (34.0-47.0) % MCV (81.0-99.0) fL MCH (27.0-31.0) pg MCHC (33.0-37.0) g/dL RDW (11.5-14.5) % Plt Count (130-400) K/uL MPV (7.2-11.7) fL Neut % (Auto) (50.0-75.0) % Lymph % (Auto) (20.0-40.0) % [place] % (Auto) (0.0-10.0) % Eos % (Auto) (0.0-4.0) % Baso % (Auto) (0.0-2.0) % Neut # (1.8-7.0) K/uL Lymph # (1.0-4.3) K/uL [place] # (0.0-0.8) K/uL Eos # (0.0-0.7) K/uL Baso # (0.0-0.2) K/uL Puncture Site pCO2 (35-45) mm/Hg pO2 (80-100) mm/Hg HCO3 (21-28) mmol/L ABG pH (7.35-7.45) ABG Total CO2 (22-28) mmol/L ABG O2 Saturation (95-98) % ABG Base Excess (-2.0-3.0) mmol/L ABG Hemoglobin (11.7-17.4) g/dL ABG Carboxyhemoglobin (0.5-1.5) % POC ABG HHb (Measured) (0.0-5.0) % ABG Methemoglobin (0.0-3.0) % Gumaro Test A-a O2 Difference mm/Hg Respiratory Index Hgb O2 Saturation (95.0-98.0) % Mechanical Rate FiO2 % Tidal Volume PEEP Blood Gas Comments Crit Value Called To Crit Value Called By Crit Value Read Back Blood Gas Notified Time Sodium (132-148) mmol/L Potassium (3.6-5.2) mmol/L Chloride (98-107) mmol/L Carbon Dioxide (22-30) mmol/L Anion Gap (10-20) BUN (7-17) mg/dL Creatinine (0.7-1.2) MG/DL Est GFR ( Amer) Est GFR (Non-Af Amer) POC Glucose (mg/dL) 103 (65-110) mg/dL Random Glucose (65-105) mg/dL Calcium (8.6-10.4) mg/dl Phosphorus (2.5-4.5) mg/dL Magnesium (1.6-2.3) mg/dL Total Bilirubin (0.2-1.3) mg/dL AST (14-36) U/L ALT (9-52) U/L Alkaline Phosphatase (38-126) U/L Total Protein (6.3-8.3) g/dL Albumin (3.5-5.0) g/dL Globulin (2.2-3.9) gm/dL Albumin/Globulin Ratio (1.0-2.1) Laboratory Results - last 24 hr 09/05/16 09/05/16 09/05/16 00:02 05:07 06:08 WBC RBC Hgb Hct MCV MCH MCHC RDW Plt Count MPV Neut % (Auto) Lymph % (Auto) [place] % (Auto) Eos % (Auto) Baso % (Auto) Neut # Lymph # [place] # Eos # Baso # Puncture Site Lb pCO2 40 pO2 37 L* HCO3 27.0 ABG pH 7.44 ABG Total CO2 28.4 H ABG O2 Saturation 92.1 L ABG Base Excess 2.8 ABG Hemoglobin 7.1 L ABG Carboxyhemoglobin 3.7 H POC ABG HHb (Measured) 7.5 H ABG Methemoglobin 1.9 Gumaro Test Na A-a O2 Difference 270.0 Respiratory Index 7.3 Hgb O2 Saturation 86.9 L Mechanical Rate 12 FiO2 50.0 Tidal Volume 350 PEEP 5 Blood Gas Comments Possible mixed venous sample, pt is a very hard stick Crit Value Called To Arik rn Crit Value Called By Ghislaine property officer Crit Value Read Back Y Blood Gas Notified Time 537 Sodium 138 Potassium 4.2 Chloride 96 L Carbon Dioxide 31 H Anion Gap 15 BUN 39 H Creatinine 2.3 H Est GFR ( Amer) 26 Est GFR (Non-Af Amer) 21 POC Glucose (mg/dL) 103 Random Glucose 87 Calcium 8.0 L Phosphorus 1.8 L Magnesium 2.1 Total Bilirubin 1.0 AST 30 ALT 18 Alkaline Phosphatase 140 H Total Protein 8.4 H Albumin 4.3 Globulin 4.1 H Albumin/Globulin Ratio 1.0 09/05/ 06:09 WBC 3.7 L RBC 2.39 L Hgb 8.0 L Hct 26.5 L MCV 110.9 H MCH 33.3 H MCHC 30.1 L RDW 19.9 H Plt Count 68 L MPV 10.2 Neut % (Auto) 73.7 Lymph % (Auto) 12.2 L [place] % (Auto) 9.6 Eos % (Auto) 2.1 Baso % (Auto) 2.4 H Neut # 2.7 Lymph # 0.5 L [place] # 0.4 Eos # 0.1 Baso # 0.1 Puncture Site pCO2 pO2 HCO3 ABG pH ABG Total CO2 ABG O2 Saturation ABG Base Excess ABG Hemoglobin ABG Carboxyhemoglobin POC ABG HHb (Measured) ABG Methemoglobin Gumaro Test A-a O2 Difference Respiratory Index Hgb O2 Saturation Mechanical Rate FiO2 Tidal Volume PEEP Blood Gas Comments Crit Value Called To Crit Value Called By Crit Value Read Back Blood Gas Notified Time Sodium Potassium Chloride Carbon Dioxide Anion Gap BUN Creatinine Est GFR ( Amer) Est GFR (Non-Af Amer) POC Glucose (mg/dL) Random Glucose Calcium Phosphorus Magnesium Total Bilirubin AST ALT Alkaline Phosphatase Total Protein Albumin Globulin Albumin/Globulin Ratio Review of Systems - Review of Systems Systems not reviewed;Unavailable: Intubated Assessment/Plan - Assessment and Plan (Free Text) Assessment: 66yo F PMHx CAD, HTN, HLD, ESRD on HD (T//), right AV shunt, arthritis, scleroderma, Asthma, COPD, CHF, glaucoma, afib, PPM, depression, with acute hypoxic respiratory failure Plan: Neuro: Alert and following commands Tylenol 650mg carmen for headache Diprivan gtt minimal sedation Versed 2mg ivp prn agitation Pulm: Acute hypoxic respiratory failure,on PRVC (12, 50, 350, 5) CXR 09/05 prominent airspace consolidative changes in mid to lower lung zones b/ l with associated mod b/l pleural effusions f/u CT chest Duoneb 3ml inh q4 f/u Mycoplasma IgM f/u Legionella CV: Hemodynamically stable- Afib rate controlled Midodrine 10mg po tid Lopressor 25mg po bid Amiodarone 200mg po daily Plavix 75mg po daily Hem: Anemia of chronic disease Monitor Renal: ESRD on HD //Sun Patient had HD today 09/05 Phoslo 1334mg po bidcc Nephro following Endo: No acute issues GI: NPO NGT Novasource @ 20cc/hr tolerating- goal rate 40cc/hr Cokace 100mg po bid ID: Procalcitonin 1.32 Zosyn 2.25gm ivpb q6 Doxycycline 100mg ivpb q12 Blood culture negative x 2 on 09/02 Blood culture negative x 2 on 08/31 DVT proph: heparin 5000u sc q12 GI proph: Pepcid 20mg po daily sauceda for strict I/O's during acute illness Code status: full code Case discussed with Dr. Phong Clark PGY1 <Jimi Darling S - Last Filed: 09/05/16 17:33> CCU Objective - Vital Signs / Intake & Output Vital Signs (Last 4 hours): Vital Signs Temp Pulse Resp BP Pulse Ox 09/05/16 17:20 89/43 L 09/05/16 17:10 64 18 102/49 L 100 09/05/16 17:00 66 23 100 09/05/16 16:00 98 F 62 12 100 09/05/16 15:58 60 18 85/46 L 09/05/16 15:00 60 14 100 09/05/16 14:58 60 17 89/47 L 100 09/05/16 14:00 60 12 100 09/05/16 13:58 60 20 91/47 L 100 Intake and Output (Last 8hrs): Intake & Output 09/05/16 09/05/16 09/05/16 06:59 14:59 22:59 Intake Total 480 690 230 Balance 480 690 230 Weight 134 lb 14.4 oz Intake: Intake, IV Amount 100 250 50 Left External Jugular 100 250 50 Tube Feeding 320 320 120 Other 60 120 60 Other: # Bowel Movements 0 0 - Medications Active Medications: Active Medications Generic Name Dose Route Start Last Admin Trade Name Freq PRN Reason Stop Dose Admin Acetaminophen 650 mg 09/04/16 20:01 09/05/16 17:08 Tylenol 650mg/20.3ml Solution Ud PO 650 mg Q4 PRN Administration Headache Albuterol/Ipratropium 3 ml 09/01/16 04:00 09/05/16 15:48 Duoneb 3 Mg/0.5 Mg (3 Ml) Ud INH 3 ml RQ4 NEVAEH Administration Amiodarone HCl 200 mg 09/01/16 10:00 09/05/16 09:19 Cordarone PO 200 mg DAILY NEVAEH Administration Calcium Acetate 1,334 mg 09/01/16 08:00 09/05/16 17:08 Phoslo PO 1,334 mg BIDCC NEVAEH Administration Clopidogrel Bisulfate 75 mg 09/01/16 10:00 09/05/16 09:19 Plavix PO 75 mg DAILY NEVAEH Administration Docusate Sodium 100 mg 09/01/16 01:47 09/04/16 11:08 Colace PO 100 mg BID PRN Administration Constipation Famotidine 20 mg 09/01/16 10:00 09/05/16 09:20 Pepcid PO 20 mg DAILY NEVAEH Administration Folic Acid 1 mg 09/01/16 10:00 09/05/16 09:19 Folic Acid NG 1 mg DAILY NEVAEH Administration Heparin Sodium (Porcine) 5,000 units 09/02/16 22:00 09/05/16 09:00 Heparin SC 5,000 units Q12 NEVAEH Administration Propofol 1,000 mg in 100 mls @ 2.381 mls/hr 08/31/16 23:49 09/01/16 12:53 Diprivan IV 0 mcg/kg/min .Q24H PRN 0 mls/hr TITRATE PER MD ORDER Titration Protocol 5 MCG/KG/MIN Doxycycline Hyclate 100 mg/ 100 mls @ 100 mls/hr 09/02/16 23:30 09/05/16 11: 39 Sodium Chloride IVPB 100 mls/hr Q12H NEVAEH Administration Piperacillin Sod/Tazobactam Sod 2.25 gm in 50 mls @ 100 mls/hr 09/05/16 11:00 09/05/16 17:08 Zosyn 2.25 Gm Iv Premix IVPB 100 mls/hr Q6H NEVAEH Administration Metoprolol Tartrate 25 mg 09/01/16 10:00 09/05/16 17:20 Lopressor PO Not Given BID NEVAEH Midazolam HCl 2 mg 09/03/16 00:24 09/03/16 00:45 Versed Inj IVP 2 mg Q1H PRN Administration Agitation Midodrine 10 mg 09/04/16 14:00 09/05/16 17:08 Proamatine PO 10 mg TID NEVAEH Administration - Patient Studies Lab Studies: Microbiology Studies 09/02/16 13:30 Blood Culture - Preliminary Blood-Venous NO GROWTH AFTER 3 DAYS 09/02/16 13:30 Blood Culture - Preliminary Blood-Venous NO GROWTH AFTER 3 DAYS Lab Studies 09/05/16 09/05/16 09/05/16 Range/Units 06:09 06:08 05:07 WBC 3.7 L (4.8-10.8) K/uL RBC 2.39 L (3.80-5.20) Mil/uL Hgb 8.0 L (11.0-16.0) g/dL Hct 26.5 L (34.0-47.0) % MCV 110.9 H (81.0-99.0) fL MCH 33.3 H (27.0-31.0) pg MCHC 30.1 L (33.0-37.0) g/dL RDW 19.9 H (11.5-14.5) % Plt Count 68 L (130-400) K/uL MPV 10.2 (7.2-11.7) fL Neut % (Auto) 73.7 (50.0-75.0) % Lymph % (Auto) 12.2 L (20.0-40.0) % [place] % (Auto) 9.6 (0.0-10.0) % Eos % (Auto) 2.1 (0.0-4.0) % Baso % (Auto) 2.4 H (0.0-2.0) % Neut # 2.7 (1.8-7.0) K/uL Lymph # 0.5 L (1.0-4.3) K/uL [place] # 0.4 (0.0-0.8) K/uL Eos # 0.1 (0.0-0.7) K/uL Baso # 0.1 (0.0-0.2) K/uL Puncture Site Lb pCO2 40 (35-45) mm/Hg pO2 37 L* (80-100) mm/Hg HCO3 27.0 (21-28) mmol/L ABG pH 7.44 (7.35-7.45) ABG Total CO2 28.4 H (22-28) mmol/L ABG O2 Saturation 92.1 L (95-98) % ABG Base Excess 2.8 (-2.0-3.0) mmol/L ABG Hemoglobin 7.1 L (11.7-17.4) g/dL ABG Carboxyhemoglobin 3.7 H (0.5-1.5) % POC ABG HHb (Measured) 7.5 H (0.0-5.0) % ABG Methemoglobin 1.9 (0.0-3.0) % Gumaro Test Na A-a O2 Difference 270.0 mm/Hg Respiratory Index 7.3 Hgb O2 Saturation 86.9 L (95.0-98.0) % Mechanical Rate 12 FiO2 50.0 % Tidal Volume 350 PEEP 5 Blood Gas Comments Possible mixed venous sample, pt is a very hard stick Crit Value Called To Arik rn Crit Value Called By Ghislaine property officer Crit Value Read Back Y Blood Gas Notified Time 537 Sodium 138 (132-148) mmol/L Potassium 4.2 (3.6-5.2) mmol/L Chloride 96 L (98-107) mmol/L Carbon Dioxide 31 H (22-30) mmol/L Anion Gap 15 (10-20) BUN 39 H (7-17) mg/dL Creatinine 2.3 H (0.7-1.2) MG/DL Est GFR ( Amer) 26 Est GFR (Non-Af Amer) 21 POC Glucose (mg/dL) (65-110) mg/dL Random Glucose 87 (65-105) mg/dL Calcium 8.0 L (8.6-10.4) mg/dl Phosphorus 1.8 L (2.5-4.5) mg/dL Magnesium 2.1 (1.6-2.3) mg/dL Total Bilirubin 1.0 (0.2-1.3) mg/dL AST 30 (14-36) U/L ALT 18 (9-52) U/L Alkaline Phosphatase 140 H (38-126) U/L Total Protein 8.4 H (6.3-8.3) g/dL Albumin 4.3 (3.5-5.0) g/dL Globulin 4.1 H (2.2-3.9) gm/dL Albumin/Globulin Ratio 1.0 (1.0-2.1) 09/05/16 Range/Units 00:02 WBC (4.8-10.8) K/uL RBC (3.80-5.20) Mil/uL Hgb (11.0-16.0) g/dL Hct (34.0-47.0) % MCV (81.0-99.0) fL MCH (27.0-31.0) pg MCHC (33.0-37.0) g/dL RDW (11.5-14.5) % Plt Count (130-400) K/uL MPV (7.2-11.7) fL Neut % (Auto) (50.0-75.0) % Lymph % (Auto) (20.0-40.0) % [place] % (Auto) (0.0-10.0) % Eos % (Auto) (0.0-4.0) % Baso % (Auto) (0.0-2.0) % Neut # (1.8-7.0) K/uL Lymph # (1.0-4.3) K/uL [place] # (0.0-0.8) K/uL Eos # (0.0-0.7) K/uL Baso # (0.0-0.2) K/uL Puncture Site pCO2 (35-45) mm/Hg pO2 (80-100) mm/Hg HCO3 (21-28) mmol/L ABG pH (7.35-7.45) ABG Total CO2 (22-28) mmol/L ABG O2 Saturation (95-98) % ABG Base Excess (-2.0-3.0) mmol/L ABG Hemoglobin (11.7-17.4) g/dL ABG Carboxyhemoglobin (0.5-1.5) % POC ABG HHb (Measured) (0.0-5.0) % ABG Methemoglobin (0.0-3.0) % Gumaro Test A-a O2 Difference mm/Hg Respiratory Index Hgb O2 Saturation (95.0-98.0) % Mechanical Rate FiO2 % Tidal Volume PEEP Blood Gas Comments Crit Value Called To Crit Value Called By Crit Value Read Back Blood Gas Notified Time Sodium (132-148) mmol/L Potassium (3.6-5.2) mmol/L Chloride (98-107) mmol/L Carbon Dioxide (22-30) mmol/L Anion Gap (10-20) BUN (7-17) mg/dL Creatinine (0.7-1.2) MG/DL Est GFR ( Amer) Est GFR (Non-Af Amer) POC Glucose (mg/dL) 103 (65-110) mg/dL Random Glucose (65-105) mg/dL Calcium (8.6-10.4) mg/dl Phosphorus (2.5-4.5) mg/dL Magnesium (1.6-2.3) mg/dL Total Bilirubin (0.2-1.3) mg/dL AST (14-36) U/L ALT (9-52) U/L Alkaline Phosphatase (38-126) U/L Total Protein (6.3-8.3) g/dL Albumin (3.5-5.0) g/dL Globulin (2.2-3.9) gm/dL Albumin/Globulin Ratio (1.0-2.1) Laboratory Results - last 24 hr 09/05/16 09/05/16 09/05/16 00:02 05:07 06:08 WBC RBC Hgb Hct MCV MCH MCHC RDW Plt Count MPV Neut % (Auto) Lymph % (Auto) [place] % (Auto) Eos % (Auto) Baso % (Auto) Neut # Lymph # [place] # Eos # Baso # Puncture Site Lb pCO2 40 pO2 37 L* HCO3 27.0 ABG pH 7.44 ABG Total CO2 28.4 H ABG O2 Saturation 92.1 L ABG Base Excess 2.8 ABG Hemoglobin 7.1 L ABG Carboxyhemoglobin 3.7 H POC ABG HHb (Measured) 7.5 H ABG Methemoglobin 1.9 Gumaro Test Na A-a O2 Difference 270.0 Respiratory Index 7.3 Hgb O2 Saturation 86.9 L Mechanical Rate 12 FiO2 50.0 Tidal Volume 350 PEEP 5 Blood Gas Comments Possible mixed venous sample, pt is a very hard stick Crit Value Called To Arik majano Crit Value Called By Ghislaine property officer Crit Value Read Back Y Blood Gas Notified Time 537 Sodium 138 Potassium 4.2 Chloride 96 L Carbon Dioxide 31 H Anion Gap 15 BUN 39 H Creatinine 2.3 H Est GFR ( Amer) 26 Est GFR (Non-Af Amer) 21 POC Glucose (mg/dL) 103 Random Glucose 87 Calcium 8.0 L Phosphorus 1.8 L Magnesium 2.1 Total Bilirubin 1.0 AST 30 ALT 18 Alkaline Phosphatase 140 H Total Protein 8.4 H Albumin 4.3 Globulin 4.1 H Albumin/Globulin Ratio 1.0 09/05/16 06:09 WBC 3.7 L RBC 2.39 L Hgb 8.0 L Hct 26.5 L MCV 110.9 H MCH 33.3 H MCHC 30.1 L RDW 19.9 H Plt Count 68 L MPV 10.2 Neut % (Auto) 73.7 Lymph % (Auto) 12.2 L [place] % (Auto) 9.6 Eos % (Auto) 2.1 Baso % (Auto) 2.4 H Neut # 2.7 Lymph # 0.5 L [place] # 0.4 Eos # 0.1 Baso # 0.1 Puncture Site pCO2 pO2 HCO3 ABG pH ABG Total CO2 ABG O2 Saturation ABG Base Excess ABG Hemoglobin ABG Carboxyhemoglobin POC ABG HHb (Measured) ABG Methemoglobin Gumaro Test A-a O2 Difference Respiratory Index Hgb O2 Saturation Mechanical Rate FiO2 Tidal Volume PEEP Blood Gas Comments Crit Value Called To Crit Value Called By Crit Value Read Back Blood Gas Notified Time Sodium Potassium Chloride Carbon Dioxide Anion Gap BUN Creatinine Est GFR ( Amer) Est GFR (Non-Af Amer) POC Glucose (mg/dL) Random Glucose Calcium Phosphorus Magnesium Total Bilirubin AST ALT Alkaline Phosphatase Total Protein Albumin Globulin Albumin/Globulin Ratio Attending/Attestation - Attestation I have personally seen and examined this patient.: Yes I have fully participated in the care of the patient.: Yes I have reviewed all pertinent clinical information: Yes Notes (Text): 09/05/16 17:32 Patient seen and examined in the intensive care unit. Case discussed with house staff in the morning rounds. Remains intubated on ventilatory support CAT scan of the chest done showed bilateral pleural effusion Possible thoracentesis in a.m. Continue antibiotics and hemodialysis
[2016-09-05] MEDS: Acetaminophen 650mg/20.3ml solution UD PO PRN ×3 (09:20→22:11)
[2016-09-05] MEDS: Piperacill/Tazo 2.25gm in Dex 2.25 GM/50 ML BAG IVPB SCH ×3 (11:38→22:02)
--- NOTE | 2016-09-05 12:12 | CP.PCM.PN ---
Subjective - Date & Time of Evaluation Date of Evaluation: 09/05/16 Time of Evaluation: 12:09 - Subjective Subjective: awake on vent ongoing hd uf 2L bp stable Objective - Vital Signs/Intake and Output Vital Signs (last 24 hours): Temp Pulse Resp BP Pulse Ox 97.8 F 60 16 97/51 L 100 09/05/16 10:00 09/05/16 11:45 09/05/16 11:45 09/05/16 11:45 09/05/16 11:45 Intake and Output: 09/05/16 09/05/16 06:59 18:59 Intake Total 760 360 Balance 760 360 - Medications Medications: Current Medications Acetaminophen (Tylenol 650mg/20.3ml Solution Ud) 650 mg PO Q4 PRN PRN Reason: Headache Last Admin: 09/05/16 09:20 Dose: 650 mg Albuterol/Ipratropium (Duoneb 3 Mg/0.5 Mg (3 Ml) Ud) 3 ml INH RQ4 ON LICENSE OF [facility] Last Admin: 09/05/16 07:48 Dose: 3 ml Amiodarone HCl (Cordarone) 200 mg PO DAILY ON LICENSE OF [facility] Last Admin: 09/05/16 09:19 Dose: 200 mg Calcium Acetate (Phoslo) 1,334 mg PO BIDCC ON LICENSE OF [facility] Last Admin: 09/05/16 09:19 Dose: 1,334 mg Clopidogrel Bisulfate (Plavix) 75 mg PO DAILY ON LICENSE OF [facility] Last Admin: 09/05/16 09:19 Dose: 75 mg Docusate Sodium (Colace) 100 mg PO BID PRN PRN Reason: Constipation Last Admin: 09/04/16 11:08 Dose: 100 mg Famotidine (Pepcid) 20 mg PO DAILY ON LICENSE OF [facility] Last Admin: 09/05/16 09:20 Dose: 20 mg Folic Acid (Folic Acid) 1 mg NG DAILY ON LICENSE OF [facility] Last Admin: 09/05/16 09:19 Dose: 1 mg Heparin Sodium (Porcine) (Heparin) 5,000 units SC Q12 ON LICENSE OF [facility] Last Admin: 09/05/16 09:00 Dose: 5,000 units Propofol (Diprivan) 1,000 mg in 100 mls @ 2.381 mls/hr IV .Q24H PRN; Protocol; 5 MCG/KG/MIN PRN Reason: TITRATE PER MD ORDER Last Titration: 09/01/16 12:53 Dose: 0 mcg/kg/min, 0 mls/hr Doxycycline Hyclate 100 mg/ (Sodium Chloride) 100 mls @ 100 mls/hr IVPB Q12H ON LICENSE OF [facility] Last Admin: 09/05/16 11:39 Dose: 100 mls/hr Piperacillin Sod/Tazobactam Sod (Zosyn 2.25 Gm Iv Premix) 2.25 gm in 50 mls @ 100 mls/hr IVPB Q6H ON LICENSE OF [facility] Last Admin: 09/05/16 11:38 Dose: 100 mls/hr Metoprolol Tartrate (Lopressor) 25 mg PO BID ON LICENSE OF [facility] Last Admin: 09/05/16 09:20 Dose: Not Given Midazolam HCl (Versed Inj) 2 mg IVP Q1H PRN PRN Reason: Agitation Last Admin: 09/03/16 00:45 Dose: 2 mg Midodrine (Proamatine) 10 mg PO TID ON LICENSE OF [facility] Last Admin: 09/05/16 09:19 Dose: 10 mg - Labs Labs: 09/05/16 06:09 09/05/16 06:08 PT 24.4 SECONDS (9.7-12.2) H 09/02/16 06:05 INR 2.1 09/02/16 06:05 APTT 50 SECONDS (21-34) H 09/01/16 00:07 - Constitutional Appears: Non-toxic, No Acute Distress, Cachectic, Chronically Ill - Head Exam Head Exam: NORMAL INSPECTION - Eye Exam Eye Exam: Normal appearance - ENT Exam Additional comments: et tube - Neck Exam Neck Exam: Normal Inspection - Respiratory Exam Respiratory Exam: Decreased Breath Sounds, Rales - Cardiovascular Exam Cardiovascular Exam: REGULAR RHYTHM, RRR - GI/Abdominal Exam GI & Abdominal Exam: Soft, Normal Bowel Sounds - Back Exam Back Exam: NORMAL INSPECTION - Skin Additional comments: chronic taut skin w/ ulcerations Assessment and Plan (1) ESRD (end stage renal disease) on dialysis Status: Acute (2) Respiratory failure Status: Acute (3) Anemia Status: Acute (4) Atrial fibrillation Status: Acute (5) Chronic pain Status: Acute (6) ESRD on hemodialysis Status: Acute (7) Fibrosing dermatitis Status: Acute - Assessment and Plan (Free Text) Assessment: maintain hd tts wean off vent recommend high protein feeds isidoro w/ hd poor prognosis
--- NOTE | 2016-09-05 16:30 | CP.PCM.PN ---
Subjective - Date & Time of Evaluation Date of Evaluation: 09/05/16 Time of Evaluation: 12:40 - Subjective Subjective: clinically same Objective - Vital Signs/Intake and Output Vital Signs (last 24 hours): Temp Pulse Resp BP Pulse Ox 97.8 F 60 14 89/47 L 100 09/05/16 12:00 09/05/16 15:00 09/05/16 15:00 09/05/16 14:58 09/05/16 15:00 Intake and Output: 09/05/16 09/05/16 06:59 18:59 Intake Total 760 730 Balance 760 730 - Medications Medications: Current Medications Acetaminophen (Tylenol 650mg/20.3ml Solution Ud) 650 mg PO Q4 PRN PRN Reason: Headache Last Admin: 09/05/16 09:20 Dose: 650 mg Albuterol/Ipratropium (Duoneb 3 Mg/0.5 Mg (3 Ml) Ud) 3 ml INH RQ4 [facility] Last Admin: 09/05/16 15:48 Dose: 3 ml Amiodarone HCl (Cordarone) 200 mg PO DAILY [facility] Last Admin: 09/05/16 09:19 Dose: 200 mg Calcium Acetate (Phoslo) 1,334 mg PO BIDCC [facility] Last Admin: 09/05/16 09:19 Dose: 1,334 mg Clopidogrel Bisulfate (Plavix) 75 mg PO DAILY [facility] Last Admin: 09/05/16 09:19 Dose: 75 mg Docusate Sodium (Colace) 100 mg PO BID PRN PRN Reason: Constipation Last Admin: 09/04/16 11:08 Dose: 100 mg Famotidine (Pepcid) 20 mg PO DAILY [facility] Last Admin: 09/05/16 09:20 Dose: 20 mg Folic Acid (Folic Acid) 1 mg NG DAILY [facility] Last Admin: 09/05/16 09:19 Dose: 1 mg Heparin Sodium (Porcine) (Heparin) 5,000 units SC Q12 [facility] Last Admin: 09/05/16 09:00 Dose: 5,000 units Propofol (Diprivan) 1,000 mg in 100 mls @ 2.381 mls/hr IV .Q24H PRN; Protocol; 5 MCG/KG/MIN PRN Reason: TITRATE PER MD ORDER Last Titration: 09/01/16 12:53 Dose: 0 mcg/kg/min, 0 mls/hr Doxycycline Hyclate 100 mg/ (Sodium Chloride) 100 mls @ 100 mls/hr IVPB Q12H [facility] Last Admin: 09/05/16 11:39 Dose: 100 mls/hr Piperacillin Sod/Tazobactam Sod (Zosyn 2.25 Gm Iv Premix) 2.25 gm in 50 mls @ 100 mls/hr IVPB Q6H [facility] Last Admin: 09/05/16 11:38 Dose: 100 mls/hr Metoprolol Tartrate (Lopressor) 25 mg PO BID [facility] Last Admin: 09/05/16 09:20 Dose: Not Given Midazolam HCl (Versed Inj) 2 mg IVP Q1H PRN PRN Reason: Agitation Last Admin: 09/03/16 00:45 Dose: 2 mg Midodrine (Proamatine) 10 mg PO TID [facility] Last Admin: 09/05/16 13:04 Dose: 10 mg - Labs Labs: 09/05/16 06:09 09/05/16 06:08 PT 24.4 SECONDS (9.7-12.2) H 09/02/16 06:05 INR 2.1 09/02/16 06:05 APTT 50 SECONDS (21-34) H 09/01/16 00:07 - Constitutional Appears: Well - Head Exam Head Exam: ATRAUMATIC, NORMAL INSPECTION, NORMOCEPHALIC - Eye Exam Eye Exam: EOMI, Normal appearance, PERRL Pupil Exam: NORMAL ACCOMODATION, PERRL - ENT Exam ENT Exam: Mucous Membranes Moist, Normal Exam - Neck Exam Neck Exam: Full ROM, Normal Inspection. absent: Lymphadenopathy - Respiratory Exam Respiratory Exam: Decreased Breath Sounds - Cardiovascular Exam Cardiovascular Exam: REGULAR RHYTHM, +S1, +S2 - GI/Abdominal Exam GI & Abdominal Exam: Soft, Diminished Bowel Sounds - Rectal Exam Rectal Exam: Deferred
--- NOTE | 2016-09-05 17:59 | CT ---
PROCEDURE: CT Chest without contrast HISTORY: effusions COMPARISON: Comparison is made to the previous study dated 02/19/2016 TECHNIQUE: Contiguous axial images were obtained through the chest without intravenous contrast enhancement. Sagittal and coronal reconstructions were performed. Radiation dose (DLP): 515.17 mGy-cm. This CT exam was performed using one or more of the following dose reduction techniques: Automated exposure control, adjustment of the mA and/or kV according to patient size, and/or use of iterative reconstruction technique. FINDINGS: LUNGS: Mild to moderate pulmonary vascular congestion is noted. Complete collapse of the left lower lobe and almost complete collapse of the right middle and lower lobes due to pleural effusion. The ET tube is seen at the distal trachea just above cristi by 1.5 centimeter. MEDIASTINUM: The thoracic aorta is ectatic and tortuous. The heart is mildly to moderately enlarged. Pacemaker wires are seen. Main pulmonary artery is prominent in size. No lymphadenopathy. PLEURA: Moderate to large bilateral pleural effusions slightly larger on the left. BONES: Slight heterogeneous attenuation of the osseous structures suggestive of renal osteodystrophy. Small size kidneys suggestive of end-stage renal disease. The NG tube seen extending to the stomach. UPPER ABDOMEN: Small size kidneys suggestive of end-stage renal disease. OTHER FINDINGS: There is a stent seen at the left subclavian vein. IMPRESSION: Moderate to large bilateral pleural effusion slightly larger on the left. ET tube and NG tube are seen in place. Cardiomegaly. [id number] pulmonary vascular congestion.
[2016-09-06] MEDS: Albuterol-Ipratrop 3 mg / 0.5 (3 ml) UD INH SCH ×7 (00:20→23:57)
[2016-09-06] MEDS: Piperacill/Tazo 2.25gm in Dex 2.25 GM/50 ML BAG IVPB SCH ×4 (04:27→22:04)
[2016-09-06 06:08] LABS: ARTERIAL BLOOD GAS HCO3 20.2 mmol/L (21-28); ARTERIAL BLOOD GAS HEMOGLOBIN 5.5 g/dL (11.7-17.4); ARTERIAL BLOOD GAS O2 SAT 100.1 % (95-98); ARTERIAL BLOOD GAS PCO2 20 mm/Hg (35-45); ARTERIAL BLOOD GAS PH 7.52 (7.35-7.45); ARTERIAL BLOOD GAS PO2 162 mm/Hg (80-100); ARTERIAL BLOOD GAS TCO2 16.9 mmol/L (22-28)
[2016-09-06 07:10] LABS: ALB/GLOB RATIO 0.8 (1.0-2.1)
[2016-09-06 07:11] LABS: BASO % 0.9 % (0.0-2.0); CALCIUM 7.6 mg/dl (8.6-10.4); EOS # 0.1 K/uL (0.0-0.7); EOS % 2.5 % (0.0-4.0); HEMOGLOBIN 8.3 g/dL (11.0-16.0); LYMPH # 0.4 K/uL (1.0-4.3); LYMPH % 9.4 % (20.0-40.0); MEAN CELL VOLUME 109.5 fL (81.0-99.0); MEAN PLATELET VOLUME 10.7 fL (7.2-11.7); MONO # 0.6 K/uL (0.0-0.8); MONO % 11.9 % (0.0-10.0); NEUT # 3.5 K/uL (1.8-7.0); NEUT % 75.3 % (50.0-75.0); RBC 2.43 Mil/uL (3.80-5.20); WHITE BLOOD COUNT 4.7 K/uL (4.8-10.8)
[2016-09-06 07:12] LABS: PLATELET COUNT 110 K/uL (130-400)
--- NOTE | 2016-09-06 08:18 | CP.CCUPN ---
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 No acute events overnight per nursing. Afebrile overnight. Remains intubated but will attempt extubation this AM. Pt alert and responsive. Pt had dialysis yesterday. ROS unobtainable due to pt condition. Critical Care Time Spent (in minutes): 35 CCU Objective - Vital Signs / Intake & Output Vital Signs (Last 4 hours): Vital Signs Pulse Resp BP Pulse Ox 09/06/16 07:03 60 17 99/48 L 100 09/06/16 06:46 60 15 104/52 L 100 09/06/16 05:58 66 15 93/46 L 09/06/16 04:58 60 19 98/48 L 100 Intake and Output (Last 8hrs): Intake & Output 09/05/16 09/06/16 09/06/16 22:59 06:59 14:59 Intake Total 540 470 40 Balance 540 470 40 Weight 62.777 kg Intake: Intake, IV Amount 100 150 Left External Jugular 100 150 Tube Feeding 320 320 40 Other 120 - Physical Exam Head: Positive for: Atraumatic, Normocephalic Pupils: Positive for: PERRL Extroacular Muscles: Positive for: EOMI Conjunctiva: Positive for: Normal. Negative for: Injected, Icteric Mouth: Positive for: Dry Pharnyx: Positive for: Normal Neck: Negative for: JVD Respiratory/Chest: Positive for: Decreased Breath Sounds. Negative for: Wheezes , Rales, Rhonchi Cardiovascular: Positive for: Normal S1, S2, Irregular Rhythm. Negative for: Murmurs Abdomen: Positive for: Normal Bowel Sounds. Negative for: Tenderness, Distention Upper Extremity: Positive for: Normal Inspection. Negative for: Cyanosis, Edema Lower Extremity: Positive for: Normal Inspection. Negative for: Edema Neurological: Positive for: Motor Func Grossly Intact Skin: Positive for: Warm, Dry, Normal Color Psychiatric: Positive for: Alert - Medications Active Medications: Active Medications Generic Name Dose Route Start Last Admin Trade Name Freq PRN Reason Stop Dose Admin Acetaminophen 650 mg 09/04/16 20:01 09/05/16 22:11 Tylenol 650mg/20.3ml Solution Ud PO 650 mg Q4 PRN Administration Headache Albuterol/Ipratropium 3 ml 09/01/16 04:00 09/06/16 07:32 Duoneb 3 Mg/0.5 Mg (3 Ml) Ud INH 3 ml RQ4 NEVAEH Administration Amiodarone HCl 200 mg 09/01/16 10:00 09/05/16 09:19 Cordarone PO 200 mg DAILY NEVAEH Administration Calcium Acetate 1,334 mg 09/01/16 08:00 09/05/16 17:08 Phoslo PO 1,334 mg BIDCC NEVAEH Administration Clopidogrel Bisulfate 75 mg 09/01/16 10:00 09/05/16 09:19 Plavix PO 75 mg DAILY NEVAEH Administration Docusate Sodium 100 mg 09/01/16 01:47 09/04/16 11:08 Colace PO 100 mg BID PRN Administration Constipation Famotidine 20 mg 09/01/16 10:00 09/05/16 09:20 Pepcid PO 20 mg DAILY NEVAEH Administration Folic Acid 1 mg 09/01/16 10:00 09/05/16 09:19 Folic Acid NG 1 mg DAILY NEVAEH Administration Heparin Sodium (Porcine) 5,000 units 09/02/16 22:00 09/05/16 09:00 Heparin SC 5,000 units Q12 NEVAEH Administration Propofol 1,000 mg in 100 mls @ 2.381 mls/hr 08/31/16 23:49 09/01/16 12:53 Diprivan IV 0 mcg/kg/min .Q24H PRN 0 mls/hr TITRATE PER MD ORDER Titration Protocol 5 MCG/KG/MIN Doxycycline Hyclate 100 mg/ 100 mls @ 100 mls/hr 09/02/16 23:30 09/05/16 22: 37 Sodium Chloride IVPB 100 mls/hr Q12H NEVAEH Administration Piperacillin Sod/Tazobactam Sod 2.25 gm in 50 mls @ 100 mls/hr 09/05/16 11:00 09/06/16 04:27 Zosyn 2.25 Gm Iv Premix IVPB 100 mls/hr Q6H NEVAEH Administration Metoprolol Tartrate 25 mg 09/01/16 10:00 09/05/16 17:20 Lopressor PO Not Given BID NEVAEH Midazolam HCl 2 mg 09/03/16 00:24 09/03/16 00:45 Versed Inj IVP 2 mg Q1H PRN Administration Agitation Midodrine 10 mg 09/04/16 14:00 09/05/16 17:08 Proamatine PO 10 mg TID NEVAEH Administration - Patient Studies Lab Studies: Microbiology Studies 09/02/16 13:30 Blood Culture - Preliminary Blood-Venous NO GROWTH AFTER 3 DAYS 09/02/16 13:30 Blood Culture - Preliminary Blood-Venous NO GROWTH AFTER 3 DAYS Lab Studies 09/06/16 09/06/16 09/06/16 Range/Units 06:23 06:23 05:08 WBC 4.7 L (4.8-10.8) K/uL RBC 2.43 L (3.80-5.20) Mil/uL Hgb 8.3 L (11.0-16.0) g/dL Hct 26.6 L (34.0-47.0) % MCV 109.5 H (81.0-99.0) fL MCH 34.0 H (27.0-31.0) pg MCHC 31.0 L (33.0-37.0) g/dL RDW 19.0 H (11.5-14.5) % Plt Count 110 L D (130-400) K/uL MPV 10.7 (7.2-11.7) fL Neut % (Auto) 75.3 H (50.0-75.0) % Lymph % (Auto) 9.4 L (20.0-40.0) % [place] % (Auto) 11.9 H (0.0-10.0) % Eos % (Auto) 2.5 (0.0-4.0) % Baso % (Auto) 0.9 (0.0-2.0) % Neut # 3.5 (1.8-7.0) K/uL Lymph # 0.4 L (1.0-4.3) K/uL [place] # 0.6 (0.0-0.8) K/uL Eos # 0.1 (0.0-0.7) K/uL Baso # 0.0 (0.0-0.2) K/uL Puncture Site L bra pCO2 20 L (35-45) mm/Hg pO2 162 H (80-100) mm/Hg HCO3 20.2 L (21-28) mmol/L ABG pH 7.52 H (7.35-7.45) ABG Total CO2 16.9 L (22-28) mmol/L ABG O2 Saturation 100.1 H (95-98) % ABG Base Excess -6.1 L (-2.0-3.0) mmol/L ABG Hemoglobin 5.5 L (11.7-17.4) g/dL ABG Carboxyhemoglobin 2.2 H (0.5-1.5) % POC ABG HHb (Measured) -0.1 L (0.0-5.0) % ABG Methemoglobin 0.9 (0.0-3.0) % Gum[place] Test Na A-a O2 Difference 170.0 mm/Hg Respiratory Index 1.0 Hgb O2 Saturation 97.0 (95.0-98.0) % Mechanical Rate 12 FiO2 50.0 % Tidal Volume 350 PEEP 5 Crit Value Called To Angela dalton burnishing machine operator Crit Value Called By Piper kumar rt Crit Value Read Back Y Blood Gas Notified Time 610 Sodium 136 (132-148) mmol/L Potassium 5.3 H (3.6-5.2) mmol/L Chloride 97 L (98-107) mmol/L Carbon Dioxide 26 (22-30) mmol/L Anion Gap 18 (10-20) BUN 39 H (7-17) mg/dL Creatinine 1.9 H (0.7-1.2) MG/DL Est GFR ( Amer) 32 Est GFR (Non-Af Amer) 26 POC Glucose (mg/dL) (65-110) mg/dL Random Glucose 93 (65-105) mg/dL Calcium 7.6 L (8.6-10.4) mg/dl Phosphorus 1.6 L (2.5-4.5) mg/dL Magnesium 2.0 (1.6-2.3) mg/dL Total Bilirubin 1.7 H (0.2-1.3) mg/dL AST 62 H D (14-36) U/L ALT 9 D (9-52) U/L Alkaline Phosphatase 169 H D (38-126) U/L Total Protein 9.1 H (6.3-8.3) g/dL Albumin 4.0 (3.5-5.0) g/dL Globulin 5.1 H (2.2-3.9) gm/dL Albumin/Globulin Ratio 0.8 L (1.0-2.1) 09/06/16 Range/Units 00:20 WBC (4.8-10.8) K/uL RBC (3.80-5.20) Mil/uL Hgb (11.0-16.0) g/dL Hct (34.0-47.0) % MCV (81.0-99.0) fL MCH (27.0-31.0) pg MCHC (33.0-37.0) g/dL RDW (11.5-14.5) % Plt Count (130-400) K/uL MPV (7.2-11.7) fL Neut % (Auto) (50.0-75.0) % Lymph % (Auto) (20.0-40.0) % [place] % (Auto) (0.0-10.0) % Eos % (Auto) (0.0-4.0) % Baso % (Auto) (0.0-2.0) % Neut # (1.8-7.0) K/uL Lymph # (1.0-4.3) K/uL [place] # (0.0-0.8) K/uL Eos # (0.0-0.7) K/uL Baso # (0.0-0.2) K/uL Puncture Site pCO2 (35-45) mm/Hg pO2 (80-100) mm/Hg HCO3 (21-28) mmol/L ABG pH (7.35-7.45) ABG Total CO2 (22-28) mmol/L ABG O2 Saturation (95-98) % ABG Base Excess (-2.0-3.0) mmol/L ABG Hemoglobin (11.7-17.4) g/dL ABG Carboxyhemoglobin (0.5-1.5) % POC ABG HHb (Measured) (0.0-5.0) % ABG Methemoglobin (0.0-3.0) % [place] Test A-a O2 Difference mm/Hg Respiratory Index Hgb O2 Saturation (95.0-98.0) % Mechanical Rate FiO2 % Tidal Volume PEEP Crit Value Called To Crit Value Called By Crit Value Read Back Blood Gas Notified Time Sodium (132-148) mmol/L Potassium (3.6-5.2) mmol/L Chloride (98-107) mmol/L Carbon Dioxide (22-30) mmol/L Anion Gap (10-20) BUN (7-17) mg/dL Creatinine (0.7-1.2) MG/DL Est GFR ( Amer) Est GFR (Non-Af Amer) POC Glucose (mg/dL) 106 (65-110) mg/dL Random Glucose (65-105) mg/dL Calcium (8.6-10.4) mg/dl Phosphorus (2.5-4.5) mg/dL Magnesium (1.6-2.3) mg/dL Total Bilirubin (0.2-1.3) mg/dL AST (14-36) U/L ALT (9-52) U/L Alkaline Phosphatase (38-126) U/L Total Protein (6.3-8.3) g/dL Albumin (3.5-5.0) g/dL Globulin (2.2-3.9) gm/dL Albumin/Globulin Ratio (1.0-2.1) Laboratory Results - last 24 hr 09/06/16 09/06/16 09/06/16 00:20 05:08 06:23 WBC 4.7 L RBC 2.43 L Hgb 8.3 L Hct 26.6 L MCV 109.5 H MCH 34.0 H MCHC 31.0 L RDW 19.0 H Plt Count 110 L D MPV 10.7 Neut % (Auto) 75.3 H Lymph % (Auto) 9.4 L [place] % (Auto) 11.9 H Eos % (Auto) 2.5 Baso % (Auto) 0.9 Neut # 3.5 Lymph # 0.4 L [place] # 0.6 Eos # 0.1 Baso # 0.0 Puncture Site L bra pCO2 20 L pO2 162 H HCO3 20.2 L ABG pH 7.52 H ABG Total CO2 16.9 L ABG O2 Saturation 100.1 H ABG Base Excess -6.1 L ABG Hemoglobin 5.5 L ABG Carboxyhemoglobin 2.2 H POC ABG HHb (Measured) -0.1 L ABG Methemoglobin 0.9 [place]um[place] Test Na A-a O2 Difference 170.0 Respiratory Index 1.0 Hgb O2 Saturation 97.0 Mechanical Rate 12 FiO2 50.0 Tidal Volume 350 PEEP 5 Crit Value Called To Angela dalton burnishing machine operator Crit Value Called By Piper kumar rt Crit Value Read Back Y Blood Gas Notified Time 610 Sodium Potassium Chloride Carbon Dioxide Anion Gap BUN Creatinine Est GFR ( Amer) Est GFR (Non-Af Amer) POC Glucose (mg/dL) 106 Random Glucose Calcium Phosphorus Magnesium Total Bilirubin AST ALT Alkaline Phosphatase Total Protein Albumin Globulin Albumin/Globulin Ratio 09/06/16 06:23 WBC RBC Hgb Hct MCV MCH MCHC RDW Plt Count MPV Neut % (Auto) Lymph % (Auto) [place] % (Auto) Eos % (Auto) Baso % (Auto) Neut # Lymph # [place] # Eos # Baso # Puncture Site pCO2 pO2 HCO3 ABG pH ABG Total CO2 ABG O2 Saturation ABG Base Excess ABG Hemoglobin ABG Carboxyhemoglobin POC ABG HHb (Measured) ABG Methemoglobin [place] Test A-a O2 Difference Respiratory Index Hgb O2 Saturation Mechanical Rate FiO2 Tidal Volume PEEP Crit Value Called To Crit Value Called By Crit Value Read Back Blood Gas Notified Time Sodium 136 Potassium 5.3 H Chloride 97 L Carbon Dioxide 26 Anion Gap 18 BUN 39 H Creatinine 1.9 H Est GFR ( Amer) 32 Est GFR (Non-Af Amer) 26 POC Glucose (mg/dL) Random Glucose 93 Calcium 7.6 L Phosphorus 1.6 L Magnesium 2.0 Total Bilirubin 1.7 H AST 62 H D ALT 9 D Alkaline Phosphatase 169 H D Total Protein 9.1 H Albumin 4.0 Globulin 5.1 H Albumin/Globulin Ratio 0.8 L Review of Systems - Review of Systems Systems not reviewed;Unavailable: Intubated Assessment/Plan - Assessment and Plan (Free Text) Assessment: 66yo F PMHx CAD, HTN, HLD, ESRD on HD (//), right AV shunt, arthritis, scleroderma, Asthma, COPD, CHF, glaucoma, afib, PPM, depression, with acute hypoxic respiratory failure Plan: Neuro: Alert and following commands Tylenol 650mg carmen for headache Diprivan gtt minimal sedation Versed 2mg ivp prn agitation Pulm: Acute hypoxic respiratory failure,on PRVC (12, 50, 350, 5) CXR 09/05 prominent airspace consolidative changes in mid to lower lung zones b/ l with associated mod b/l pleural effusions CT chest (09/06/16): Moderate to large b/l pleural effusion slightly larger on left. Cardiomegaly. ET/NGT in place. [id number] pulm vascular congestion ( see full report) Duoneb 3ml inh q4 f/u Mycoplasma IgM f/u Legionella CV: Hemodynamically stable- Afib rate controlled Midodrine 10mg po tid Lopressor 25mg po bid Amiodarone 200mg po daily Plavix 75mg po daily Hem: Anemia of chronic disease Monitor Renal: ESRD on HD //Sun Phos: 1.6 on AM labs, so PHOS-LO discontinued - start neutra-phos 1 pkt Q12H Patient had HD today 09/05 Nephro following Endo: No acute issues GI: NPO NGT Novasource @ goal rate 40cc/hr Colace 100mg po bid ID: Procalcitonin 1.32 Zosyn 2.25gm ivpb q6 (start 09/05/16) Doxycycline 100mg ivpb q12 (start 09/02/16) Blood culture negative x 2 on 09/02 Blood culture negative x 2 on 08/31 DVT proph: heparin 5000u sc q12 GI proph: Pepcid 20mg po daily sauceda for strict I/O's during acute illness Code status: full code Case discussed with Dr. Phong Cabrera PGY1 <Jimi Darling S - Last Filed: 09/06/16 17:29> CCU Objective - Vital Signs / Intake & Output Vital Signs (Last 4 hours): Vital Signs Pulse Resp BP Pulse Ox 09/06/16 15:03 61 25 H 97/48 L 100 09/06/16 14:03 60 21 103/55 L 100 Intake and Output (Last 8hrs): Intake & Output 09/06/16 09/06/16 09/06/16 06:59 14:59 22:59 Intake Total 470 400 5 Balance 470 400 5 Weight 138 lb 6.4 oz Intake: Intake, IV Amount 150 160 5 Left External Jugular 150 160 5 Oral 40 Tube Feeding 320 200 - Medications Active Medications: Active Medications Generic Name Dose Route Start Last Admin Trade Name Freq PRN Reason Stop Dose Admin Acetaminophen 650 mg 09/04/16 20:01 09/06/16 11:01 Tylenol 650mg/20.3ml Solution Ud PO 650 mg Q4 PRN Administration Headache Albuterol/Ipratropium 3 ml 09/01/16 04:00 09/06/16 15:43 Duoneb 3 Mg/0.5 Mg (3 Ml) Ud INH 3 ml RQ4 NEVAEH Administration Amiodarone HCl 200 mg 09/01/16 10:00 09/06/16 10:21 Cordarone PO 200 mg DAILY NEVAEH Administration Clopidogrel Bisulfate 75 mg 09/01/16 10:00 09/06/16 10:20 Plavix PO 75 mg DAILY NEVAEH Administration Docusate Sodium 100 mg 09/01/16 01:47 09/04/16 11:08 Colace PO 100 mg BID PRN Administration Constipation Famotidine 20 mg 09/01/16 10:00 09/06/16 10:20 Pepcid PO 20 mg DAILY NEVAEH Administration Folic Acid 1 mg 09/01/16 10:00 09/06/16 10:20 Folic Acid NG 1 mg DAILY NEVAEH Administration Heparin Sodium (Porcine) 5,000 units 09/02/16 22:00 09/05/16 09:00 Heparin SC 5,000 units Q12 NEVAEH Administration Doxycycline Hyclate 100 mg/ 100 mls @ 100 mls/hr 09/02/16 23:30 09/06/16 11: 51 Sodium Chloride IVPB 100 mls/hr Q12H NEVAEH Administration Piperacillin Sod/Tazobactam Sod 2.25 gm in 50 mls @ 100 mls/hr 09/05/16 11:00 09/06/16 10:36 Zosyn 2.25 Gm Iv Premix IVPB 100 mls/hr Q6H NEVAEH Administration Metoprolol Tartrate 25 mg 09/01/16 10:00 09/06/16 10:25 Lopressor PO Not Given BID NEVAEH Midodrine 10 mg 09/04/16 14:00 09/06/16 14:38 Proamatine PO 10 mg TID NEVAEH Administration Potassium Phos/Sodium Phos 1 pkt 09/06/16 10:00 09/06/16 10:34 Neutra-Phos PO 1 pkt Q12H NEVAEH Administration - Patient Studies Lab Studies: Microbiology Studies 09/02/16 13:30 Blood Culture - Preliminary Blood-Venous NO GROWTH AFTER 4 DAYS 09/02/16 13:30 Blood Culture - Preliminary Blood-Venous NO GROWTH AFTER 4 DAYS Lab Studies 09/06/16 09/06/16 09/06/16 Range/Units 06:23 06:23 05:08 WBC 4.7 L (4.8-10.8) K/uL RBC 2.43 L (3.80-5.20) Mil/uL Hgb 8.3 L (11.0-16.0) g/dL Hct 26.6 L (34.0-47.0) % MCV 109.5 H (81.0-99.0) fL MCH 34.0 H (27.0-31.0) pg MCHC 31.0 L (33.0-37.0) g/dL RDW 19.0 H (11.5-14.5) % Plt Count 110 L D (130-400) K/uL MPV 10.7 (7.2-11.7) fL Neut % (Auto) 75.3 H (50.0-75.0) % Lymph % (Auto) 9.4 L (20.0-40.0) % [place] % (Auto) 11.9 H (0.0-10.0) % Eos % (Auto) 2.5 (0.0-4.0) % Baso % (Auto) 0.9 (0.0-2.0) % Neut # 3.5 (1.8-7.0) K/uL Lymph # 0.4 L (1.0-4.3) K/uL [place] # 0.6 (0.0-0.8) K/uL Eos # 0.1 (0.0-0.7) K/uL Baso # 0.0 (0.0-0.2) K/uL Neutrophils % (Manual) 85 H (50-75) % Lymphocytes % (Manual) 3 L (20-40) % Monocytes % (Manual) 9 (0-10) % Eosinophils % (Manual) 3 (0-4) % Platelet Estimate Slightly decreased L (NORMAL) Hypochromasia (manual) Slight Poikilocytosis (manual Slight Anisocytosis (manual) Slight Macrocytosis (manual) Slight Puncture Site L bra pCO2 20 L (35-45) mm/Hg pO2 162 H (80-100) mm/Hg HCO3 20.2 L (21-28) mmol/L ABG pH 7.52 H (7.35-7.45) ABG Total CO2 16.9 L (22-28) mmol/L ABG O2 Saturation 100.1 H (95-98) % ABG Base Excess -6.1 L (-2.0-3.0) mmol/L ABG Hemoglobin 5.5 L (11.7-17.4) g/dL ABG Carboxyhemoglobin 2.2 H (0.5-1.5) % POC ABG HHb (Measured) -0.1 L (0.0-5.0) % ABG Methemoglobin 0.9 (0.0-3.0) % [place] Test Na A-a O2 Difference 170.0 mm/Hg Respiratory Index 1.0 Hgb O2 Saturation 97.0 (95.0-98.0) % Mechanical Rate 12 FiO2 50.0 % Tidal Volume 350 PEEP 5 Crit Value Called To Angela dalton burnishing machine operator Crit Value Called By Piper kumar rt Crit Value Read Back Y Blood Gas Notified Time 610 Sodium 136 (132-148) mmol/L Potassium 5.3 H (3.6-5.2) mmol/L Chloride 97 L (98-107) mmol/L Carbon Dioxide 26 (22-30) mmol/L Anion Gap 18 (10-20) BUN 39 H (7-17) mg/dL Creatinine 1.9 H (0.7-1.2) MG/DL Est GFR ( Amer) 32 Est GFR (Non-Af Amer) 26 POC Glucose (mg/dL) (65-110) mg/dL Random Glucose 93 (65-105) mg/dL Calcium 7.6 L (8.6-10.4) mg/dl Phosphorus 1.6 L (2.5-4.5) mg/dL Magnesium 2.0 (1.6-2.3) mg/dL Total Bilirubin 1.7 H (0.2-1.3) mg/dL AST 62 H D (14-36) U/L ALT 9 D (9-52) U/L Alkaline Phosphatase 169 H D (38-126) U/L Total Protein 9.1 H (6.3-8.3) g/dL Albumin 4.0 (3.5-5.0) g/dL Globulin 5.1 H (2.2-3.9) gm/dL Albumin/Globulin Ratio 0.8 L (1.0-2.1) 09/06/16 Range/Units 00:20 WBC (4.8-10.8) K/uL RBC (3.80-5.20) Mil/uL Hgb (11.0-16.0) g/dL Hct (34.0-47.0) % MCV (81.0-99.0) fL MCH (27.0-31.0) pg MCHC (33.0-37.0) g/dL RDW (11.5-14.5) % Plt Count (130-400) K/uL MPV (7.2-11.7) fL Neut % (Auto) (50.0-75.0) % Lymph % (Auto) (20.0-40.0) % [place] % (Auto) (0.0-10.0) % Eos % (Auto) (0.0-4.0) % Baso % (Auto) (0.0-2.0) % Neut # (1.8-7.0) K/uL Lymph # (1.0-4.3) K/uL [place] # (0.0-0.8) K/uL Eos # (0.0-0.7) K/uL Baso # (0.0-0.2) K/uL Neutrophils % (Manual) (50-75) % Lymphocytes % (Manual) (20-40) % Monocytes % (Manual) (0-10) % Eosinophils % (Manual) (0-4) % Platelet Estimate (NORMAL) Hypochromasia (manual) Poikilocytosis (manual Anisocytosis (manual) Macrocytosis (manual) Puncture Site pCO2 (35-45) mm/Hg pO2 (80-100) mm/Hg HCO3 (21-28) mmol/L ABG pH (7.35-7.45) ABG Total CO2 (22-28) mmol/L ABG O2 Saturation (95-98) % ABG Base Excess (-2.0-3.0) mmol/L ABG Hemoglobin (11.7-17.4) g/dL ABG Carboxyhemoglobin (0.5-1.5) % POC ABG HHb (Measured) (0.0-5.0) % ABG Methemoglobin (0.0-3.0) % Gum[place] Test A-a O2 Difference mm/Hg Respiratory Index Hgb O2 Saturation (95.0-98.0) % Mechanical Rate FiO2 % Tidal Volume PEEP Crit Value Called To Crit Value Called By Crit Value Read Back Blood Gas Notified Time Sodium (132-148) mmol/L Potassium (3.6-5.2) mmol/L Chloride (98-107) mmol/L Carbon Dioxide (22-30) mmol/L Anion Gap (10-20) BUN (7-17) mg/dL Creatinine (0.7-1.2) MG/DL Est GFR ( Amer) Est GFR (Non-Af Amer) POC Glucose (mg/dL) 106 (65-110) mg/dL Random Glucose (65-105) mg/dL Calcium (8.6-10.4) mg/dl Phosphorus (2.5-4.5) mg/dL Magnesium (1.6-2.3) mg/dL Total Bilirubin (0.2-1.3) mg/dL AST (14-36) U/L ALT (9-52) U/L Alkaline Phosphatase (38-126) U/L Total Protein (6.3-8.3) g/dL Albumin (3.5-5.0) g/dL Globulin (2.2-3.9) gm/dL Albumin/Globulin Ratio (1.0-2.1) Laboratory Results - last 24 hr 09/06/16 09/06/16 09/06/16 00:20 05:08 06:23 WBC 4.7 L RBC 2.43 L Hgb 8.3 L Hct 26.6 L MCV 109.5 H MCH 34.0 H MCHC 31.0 L RDW 19.0 H Plt Count 110 L D MPV 10.7 Neut % (Auto) 75.3 H Lymph % (Auto) 9.4 L [place] % (Auto) 11.9 H Eos % (Auto) 2.5 Baso % (Auto) 0.9 Neut # 3.5 Lymph # 0.4 L [place] # 0.6 Eos # 0.1 Baso # 0.0 Neutrophils % (Manual) 85 H Lymphocytes % (Manual) 3 L Monocytes % (Manual) 9 Eosinophils % (Manual) 3 Platelet Estimate Slightly decreased L Hypochromasia (manual) Slight Poikilocytosis (manual Slight Anisocytosis (manual) Slight Macrocytosis (manual) Slight Puncture Site L bra pCO2 20 L pO2 162 H HCO3 20.2 L ABG pH 7.52 H ABG Total CO2 16.9 L ABG O2 Saturation 100.1 H ABG Base Excess -6.1 L ABG Hemoglobin 5.5 L ABG Carboxyhemoglobin 2.2 H POC ABG HHb (Measured) -0.1 L ABG Methemoglobin 0.9 Gum[place] Test Na A-a O2 Difference 170.0 Respiratory Index 1.0 Hgb O2 Saturation 97.0 Mechanical Rate 12 FiO2 50.0 Tidal Volume 350 PEEP 5 Crit Value Called To Angela dalton burnishing machine operator Crit Value Called By Piper kumar rt Crit Value Read Back Y Blood Gas Notified Time 610 Sodium Potassium Chloride Carbon Dioxide Anion Gap BUN Creatinine Est GFR ( Amer) Est GFR (Non-Af Amer) POC Glucose (mg/dL) 106 Random Glucose Calcium Phosphorus Magnesium Total Bilirubin AST ALT Alkaline Phosphatase Total Protein Albumin Globulin Albumin/Globulin Ratio 09/06/16 06:23 WBC RBC Hgb Hct MCV MCH MCHC RDW Plt Count MPV Neut % (Auto) Lymph % (Auto) [place] % (Auto) Eos % (Auto) Baso % (Auto) Neut # Lymph # [place] # Eos # Baso # Neutrophils % (Manual) Lymphocytes % (Manual) Monocytes % (Manual) Eosinophils % (Manual) Platelet Estimate Hypochromasia (manual) Poikilocytosis (manual Anisocytosis (manual) Macrocytosis (manual) Puncture Site pCO2 pO2 HCO3 ABG pH ABG Total CO2 ABG O2 Saturation ABG Base Excess ABG Hemoglobin ABG Carboxyhemoglobin POC ABG HHb (Measured) ABG Methemoglobin Gum[place] Test A-a O2 Difference Respiratory Index Hgb O2 Saturation Mechanical Rate FiO2 Tidal Volume PEEP Crit Value Called To Crit Value Called By Crit Value Read Back Blood Gas Notified Time Sodium 136 Potassium 5.3 H Chloride 97 L Carbon Dioxide 26 Anion Gap 18 BUN 39 H Creatinine 1.9 H Est GFR ( Amer) 32 Est GFR (Non-Af Amer) 26 POC Glucose (mg/dL) Random Glucose 93 Calcium 7.6 L Phosphorus 1.6 L Magnesium 2.0 Total Bilirubin 1.7 H AST 62 H D ALT 9 D Alkaline Phosphatase 169 H D Total Protein 9.1 H Albumin 4.0 Globulin 5.1 H Albumin/Globulin Ratio 0.8 L Attending/Attestation - Attestation I have personally seen and examined this patient.: Yes I have fully participated in the care of the patient.: Yes I have reviewed all pertinent clinical information: Yes Notes (Text): 09/06/16 17:28 Patient seen and examined in the intensive care unit. Case discussed with house staff in the morning rounds. Patient extubated after weaning trial Continue hemodialysis continue antibiotics Thoracentesis if no resolution of pleural effusion
--- NOTE | 2016-09-06 08:33 | RAD ---
HISTORY: intubated COMPARISON: 09/05/2016 FINDINGS: LUNGS: Opacity at right lung base likely due to dependent pleural fluid. No definite consolidation. PLEURA: Bilateral pleural effusion, right greater than left. CARDIOVASCULAR: Mild congestive change. ET tube and NG tube are unchanged. Permanent pacemaker. Left brachiocephalic vascular stent. OSSEOUS STRUCTURES: No significant abnormalities. VISUALIZED UPPER ABDOMEN: Normal. OTHER FINDINGS: None. IMPRESSION: Bilateral small pleural effusion, right greater than left. No definite infiltrate. Cannot exclude infiltrate at right lung base. Lines and tubes unchanged.
[2016-09-06 08:39] LABS: EOSINOPHIL 3 % (0-4); LYMPHOCYTE 3 % (20-40); MONOCYTE 9 % (0-10); NEUTROPHIL 85 % (50-75); PLATELET ESTIMATE SLIGHTLY DECREASED (NORMAL); TOTAL CELLS COUNTED 100
[2016-09-06 08:40] LABS: ANISOCYTOSIS SLIGHT; HYPOCHROMIC SLIGHT; POIKILOCYTOSIS SLIGHT
[2016-09-06] MEDS: Potassium & Sodium Phosphate PO SCH ×2 (10:34→22:04)
[2016-09-06] MEDS: Acetaminophen 650mg/20.3ml solution UD PO PRN (11:01)
--- NOTE | 2016-09-06 12:28 | CP.PCM.CON ---
History of Present Illness - History of Present Illness History of Present Illness: Palliative consult Requested by Phong BREWSTER Reason: Goals of care Patient is 66 yo admitted with complaints of dizziness and feeling weak. patient was discharged [facility] on the same day ofadmission to [facility]. Upon admission to [facility], patient denied chest pain, palpitations, fever and chills. Due to marked lethargy and increased labor of breathing, patient was intubated for respiratory support by MV. The CT chest on admission was significant for B/L pleural effusion, severe pulmonary venous congestion , pneumonia and complete collapse of LLL and right mid lobe. The Zosyn IV and Doxycyclin IV initiated. The heart rate controlled on Amiodorone. feedings provided via NGT of 20 cc / hr Novosource PMH: HD Tu-Thr-Sat, Failed kidney transpalnt,A fib, arthritis, HTN, depression, osteoporosis, pancreatitis, PPM, peripheral edema, Soc. Hx: , disabled, lives at home, has one son fam hx; As per record, patient denied family Hx Review of Systems - Review of Systems Systems not reviewed;Unavailable: Intubated Review of Systems: Except, marked all systems reviewed and negative - Constitutional Constitutional: Headache - EENT Eyes: absent: As Per HPI, Blind Spots, Blurred Vision, Change in Vision, Decreased Night Vision, Diplopia, Discharge, Dry Eye, Exophthalmos, Floaters, Irritation, Itchy Eyes, Loss of Peripheral Vision, Pain, Photophobia, Requires Corrective Lenses, Sees Flashes, Spots in Vision, Tunnel Vision, Other Visual Disturbances, Loss of Vision, Other Ears: absent: As Per HPI, Decreased Hearing, Ear Discharge, Ear Pain, Tinnitus, Abnormal Hearing, Disequilibrium, Dizziness, Other Nose/Mouth/Throat: Sore Throat - Breasts Breasts: absent: As Per HPI, Change in Shape, Mass, Pain, Nipple Discharge, Nipple Inversion, Skin Changes, Swelling, Other - Cardiovascular Cardiovascular: absent: As Per HPI, Acrocyanosis, Chest Pain, Chest Pain at Rest , Chest Pain with Activity, Claudication, Diaphoresis, Dyspnea, Dyspnea on Exertion, Edema, Irregular Heart Rhythm, Pain Radiating to Arm/Neck/Jaw, Leg Edema, Leg Ulcers, Lightheadedness, Orthopnea, Palpitations, Paroxysmal Nocturnal Dyspnea, Pedal Edema, Radiating Pain, Rapid Heart Rate, Slow Heart Rate, Syncope, Other - Respiratory Respiratory: Chest Congestion - Gastrointestinal Gastrointestinal: absent: As Per HPI, Abdominal Pain, Belching, Bloating, Change in Bowel Habits, Change in Stool Character, Coffee Ground Emesis, Constipation, Cramping, Diarrhea, Dyspepsia, Dysphagia, Early Satiety, Excessive Flatus, Fecal Incontinence, Heartburn, Hematemesis, Hematochezia, Loose Stools, Melena, Nausea, Odynophagia, Temesmus, Vomiting, Other - Genitourinary Additional comments: HD - Reproductive: Female Reproductive:Female: Post Menopausal - Menstruation Menstruation: Post Menopausal - Musculoskeletal Musculoskeletal: Stiffness - Integumentary Integumentary: Change in Pigmentation, Dry Skin - Neurological Neurological: Focal Weakness - Endocrine Endocrine: Palpitations - Hematologic/Lymphatic Hematologic: Easy Bleeding Past Patient History - Infectious Disease Hx of Infectious Diseases: None - Tetanus Immunizations Tetanus Immunization: Unknown - Past Medical History & Family History Past Medical History?: Yes - Past Social History Smoking Status: Never Smoked Chewing Tobacco Use: No Cigar Use: No Alcohol: None Home Situation {Lives}: With Family - CARDIAC Hx Atrial Fibrillation: Yes Hx Cardia Arrhythmia: Yes Hx Congestive Heart Failure: (CAD, A-fib) Hx Hypercholesterolemia: No Hx Hypertension: Yes Hx Pacemaker: Yes Hx Peripheral Edema: Yes - PULMONARY Hx Chronic Obstructive Pulmonary Disease (COPD): No - NEUROLOGICAL Hx Migraine: Yes - HEENT Hx HEENT Problems: Yes Hx Glaucoma: Yes (rt eye) - RENAL Hx Chronic Kidney Disease: Yes - ENDOCRINE/METABOLIC Hx Endocrine Disorders: No - HEMATOLOGICAL/ONCOLOGICAL Hx Anemia: Yes - INTEGUMENTARY Hx Dermatological Problems: Yes (nephrogenic sclerosis,Scleroderma) Other/Comment: SCLERODERMA - MUSCULOSKELETAL/RHEUMATOLOGICAL Hx Arthritis: Yes Hx Osteoporosis: Yes Hx Rheumatoid Arthritis: No - GASTROINTESTINAL Hx Pancreatitis: Yes - GENITOURINARY/GYNECOLOGICAL Hx Sexually Transmitted Disorders: No - PSYCHIATRIC Hx Depression: Yes Hx Substance Use: No - SURGICAL HISTORY Hx Cholecystectomy: Yes Other/Comment: AV Shunt for dialysis ; PPM; Kidney transplant failure - ANESTHESIA Hx Anesthesia: Yes Hx Anesthesia Reactions: No Hx Malignant Hyperthermia: No Meds Allergies/Adverse Reactions: Allergies Allergy/AdvReac Type Severity Reaction Status Date / Time vancomycin Allergy Severe ITCHING Verified 05/10/16 06:40 budesonide [From Symbicort] Allergy ITCHING Verified 08/31/16 22:56 formoterol [From Symbicort] Allergy ITCHING Verified 08/31/16 22:56 - Medications Medications: Current Medications Acetaminophen (Tylenol 650mg/20.3ml Solution Ud) 650 mg PO Q4 PRN PRN Reason: Headache Last Admin: 09/06/16 11:01 Dose: 650 mg Albuterol/Ipratropium (Duoneb 3 Mg/0.5 Mg (3 Ml) Ud) 3 ml INH RQ4 [facility] Last Admin: 09/06/16 07:32 Dose: 3 ml Amiodarone HCl (Cordarone) 200 mg PO DAILY [facility] Last Admin: 09/06/16 10:21 Dose: 200 mg Clopidogrel Bisulfate (Plavix) 75 mg PO DAILY [facility] Last Admin: 09/06/16 10:20 Dose: 75 mg Docusate Sodium (Colace) 100 mg PO BID PRN PRN Reason: Constipation Last Admin: 09/04/16 11:08 Dose: 100 mg Famotidine (Pepcid) 20 mg PO DAILY [facility] Last Admin: 09/06/16 10:20 Dose: 20 mg Folic Acid (Folic Acid) 1 mg NG DAILY [facility] Last Admin: 09/06/16 10:20 Dose: 1 mg Heparin Sodium (Porcine) (Heparin) 5,000 units SC Q12 [facility] Last Admin: 09/05/16 09:00 Dose: 5,000 units Propofol (Diprivan) 1,000 mg in 100 mls @ 2.381 mls/hr IV .Q24H PRN; Protocol; 5 MCG/KG/MIN PRN Reason: TITRATE PER MD ORDER Last Titration: 09/01/16 12:53 Dose: 0 mcg/kg/min, 0 mls/hr Doxycycline Hyclate 100 mg/ (Sodium Chloride) 100 mls @ 100 mls/hr IVPB Q12H [facility] Last Admin: 09/06/16 11:51 Dose: 100 mls/hr Piperacillin Sod/Tazobactam Sod (Zosyn 2.25 Gm Iv Premix) 2.25 gm in 50 mls @ 100 mls/hr IVPB Q6H [facility] Last Admin: 09/06/16 10:36 Dose: 100 mls/hr Metoprolol Tartrate (Lopressor) 25 mg PO BID [facility] Last Admin: 09/06/16 10:25 Dose: Not Given Midazolam HCl (Versed Inj) 2 mg IVP Q1H PRN PRN Reason: Agitation Last Admin: 09/03/16 00:45 Dose: 2 mg Midodrine (Proamatine) 10 mg PO TID [facility] Last Admin: 09/06/16 10:20 Dose: 10 mg Potassium Phos/Sodium Phos (Neutra-Phos) 1 pkt PO Q12H [facility] Last Admin: 09/06/16 10:34 Dose: 1 pkt Physical Exam - Constitutional Appears: Chronically Ill - Head Exam Head Exam: ATRAUMATIC, NORMAL INSPECTION, NORMOCEPHALIC - Eye Exam Eye Exam: EOMI, Normal appearance, PERRL Pupil Exam: NORMAL ACCOMODATION, PERRL - ENT Exam ENT Exam: Mucous Membranes Dry Additional comments: ETT - Neck Exam Neck exam: Positive for: Normal Inspection - Respiratory Exam Respiratory Exam: Decreased Breath Sounds Additional comments: On Mv - Cardiovascular Exam Cardiovascular Exam: Tachycardia, REGULAR RHYTHM, +S1, +S2 - GI/Abdominal Exam GI & Abdominal Exam: Diminished Bowel Sounds, Soft - Rectal Exam Rectal Exam: Deferred - Extremities Exam Extremities exam: Positive for: normal inspection - Back Exam Back exam: NORMAL INSPECTION - Neurological Exam Neurological exam: Alert - Psychiatric Exam Psychiatric exam: Normal Affect, Normal Mood - Skin Skin Exam: Petechiae Additional comments: scleroderma Results - Vital Signs Recent Vital Signs: Last Vital Signs Temp 99.5 F 09/06/16 08:00 Pulse 65 09/06/16 11:03 Resp 18 09/06/16 11:03 BP 82/41 L 09/06/16 11:03 Pulse Ox 100 09/06/16 11:03 - Labs Result Diagrams: 09/06/16 06:23 09/06/16 06:23 Labs: Laboratory Results - last 24 hr 09/06/16 09/06/16 09/06/16 00:20 05:08 06:23 WBC 4.7 L RBC 2.43 L Hgb 8.3 L Hct 26.6 L MCV 109.5 H MCH 34.0 H MCHC 31.0 L RDW 19.0 H Plt Count 110 L D MPV 10.7 Neut % (Auto) 75.3 H Lymph % (Auto) 9.4 L [place] % (Auto) 11.9 H Eos % (Auto) 2.5 Baso % (Auto) 0.9 Neut # 3.5 Lymph # 0.4 L [place] # 0.6 Eos # 0.1 Baso # 0.0 Neutrophils % (Manual) 85 H Lymphocytes % (Manual) 3 L Monocytes % (Manual) 9 Eosinophils % (Manual) 3 Platelet Estimate Slightly decreased L Hypochromasia (manual) Slight Poikilocytosis (manual Slight Anisocytosis (manual) Slight Macrocytosis (manual) Slight Puncture Site L bra pCO2 20 L pO2 162 H HCO3 20.2 L ABG pH 7.52 H ABG Total CO2 16.9 L ABG O2 Saturation 100.1 H ABG Base Excess -6.1 L ABG Hemoglobin 5.5 L ABG Carboxyhemoglobin 2.2 H POC ABG HHb (Measured) -0.1 L ABG Methemoglobin 0.9 [place]umaro Test Na A-a O2 Difference 170.0 Respiratory Index 1.0 Hgb O2 Saturation 97.0 Mechanical Rate 12 FiO2 50.0 Tidal Volume 350 PEEP 5 Crit Value Called To Angela dalton technical intern Crit Value Called By Piper kumar rt Crit Value Read Back Y Blood Gas Notified Time 610 Sodium Potassium Chloride Carbon Dioxide Anion Gap BUN Creatinine Est GFR ( Amer) Est GFR (Non-Af Amer) POC Glucose (mg/dL) 106 Random Glucose Calcium Phosphorus Magnesium Total Bilirubin AST ALT Alkaline Phosphatase Total Protein Albumin Globulin Albumin/Globulin Ratio 09/06/16 06:23 WBC RBC Hgb Hct MCV MCH MCHC RDW Plt Count MPV Neut % (Auto) Lymph % (Auto) [place] % (Auto) Eos % (Auto) Baso % (Auto) Neut # Lymph # [place] # Eos # Baso # Neutrophils % (Manual) Lymphocytes % (Manual) Monocytes % (Manual) Eosinophils % (Manual) Platelet Estimate Hypochromasia (manual) Poikilocytosis (manual Anisocytosis (manual) Macrocytosis (manual) Puncture Site pCO2 pO2 HCO3 ABG pH ABG Total CO2 ABG O2 Saturation ABG Base Excess ABG Hemoglobin ABG Carboxyhemoglobin POC ABG HHb (Measured) ABG Methemoglobin [place]aro Test A-a O2 Difference Respiratory Index Hgb O2 Saturation Mechanical Rate FiO2 Tidal Volume PEEP Crit Value Called To Crit Value Called By Crit Value Read Back Blood Gas Notified Time Sodium 136 Potassium 5.3 H Chloride 97 L Carbon Dioxide 26 Anion Gap 18 BUN 39 H Creatinine 1.9 H Est GFR ( Amer) 32 Est GFR (Non-Af Amer) 26 POC Glucose (mg/dL) Random Glucose 93 Calcium 7.6 L Phosphorus 1.6 L Magnesium 2.0 Total Bilirubin 1.7 H AST 62 H D ALT 9 D Alkaline Phosphatase 169 H D Total Protein 9.1 H Albumin 4.0 Globulin 5.1 H Albumin/Globulin Ratio 0.8 L Assessment & Plan - Assessment and Plan (Free Text) Assessment: palliative consult Code status Full Code, no advance directive on the chart, PPS 10%, ROS obtained partially from patient and from nursing I reviewed medical records, all diagnostic studies, examined and interviewed the patient in the bed. Patient is alert, on minimal sedation, communicates by blinking the eyes and facial expression. Patient denied any pain, except headache, which was controlled on Tylenol. The skin is very dry, stiff and leather like due to scleroderma. The fingers are contracted and patient reports pain upon slight touch. Patient unergoes her scheduled HD. latest BP 82/41, HR 65. Lopressor and Midodrone on board. patient is afebrile. CXR from today suggest persisting of small B/L pleural effusion. Patient remains dependent of ventilator. I was not able to have full discussion regarding goals of care due to condition. Patient signaled me I could talk to her son Justyn. I left voice mail for Justyn. Impression * Patient is with extensive medical Hx, currently dependent of MV support due respiratory distress * Low BP at 82/41 * Complains of occasional headache which may be caused by the low BP * Skin changes and restricted movements of both hands and fingers due to scleroderma changes * Quality of life impacted by CKD and dependence of the HD as well as by current life support measures * patient's wishes for the end of life care are not known Suggestion * Monitor and maintain BP within normal limits * promote comfort * headache management I will fallow up with patient and her son regarding goals of care discussion Thank you for consulting palliative care
--- NOTE | 2016-09-06 15:10 | CP.PCM.PN ---
Subjective - Date & Time of Evaluation Date of Evaluation: 09/06/16 Time of Evaluation: 15:08 - Subjective Subjective: extubated, on face mask bp improved good o2 saturation tolerated HD yesterday on tube feeds Objective - Vital Signs/Intake and Output Vital Signs (last 24 hours): Temp Pulse Resp BP Pulse Ox 99.5 F 60 21 103/55 L 100 09/06/16 08:00 09/06/16 14:03 09/06/16 14:03 09/06/16 14:03 09/06/16 14:03 Intake and Output: 09/06/16 09/06/16 06:59 18:59 Intake Total 740 395 Balance 740 395 - Medications Medications: Current Medications Acetaminophen (Tylenol 650mg/20.3ml Solution Ud) 650 mg PO Q4 PRN PRN Reason: Headache Last Admin: 09/06/16 11:01 Dose: 650 mg Albuterol/Ipratropium (Duoneb 3 Mg/0.5 Mg (3 Ml) Ud) 3 ml INH RQ4 [facility] Last Admin: 09/06/16 13:27 Dose: 3 ml Amiodarone HCl (Cordarone) 200 mg PO DAILY [facility] Last Admin: 09/06/16 10:21 Dose: 200 mg Clopidogrel Bisulfate (Plavix) 75 mg PO DAILY [facility] Last Admin: 09/06/16 10:20 Dose: 75 mg Docusate Sodium (Colace) 100 mg PO BID PRN PRN Reason: Constipation Last Admin: 09/04/16 11:08 Dose: 100 mg Famotidine (Pepcid) 20 mg PO DAILY [facility] Last Admin: 09/06/16 10:20 Dose: 20 mg Folic Acid (Folic Acid) 1 mg NG DAILY [facility] Last Admin: 09/06/16 10:20 Dose: 1 mg Heparin Sodium (Porcine) (Heparin) 5,000 units SC Q12 [facility] Last Admin: 09/05/16 09:00 Dose: 5,000 units Doxycycline Hyclate 100 mg/ (Sodium Chloride) 100 mls @ 100 mls/hr IVPB Q12H [facility] Last Admin: 09/06/16 11:51 Dose: 100 mls/hr Piperacillin Sod/Tazobactam Sod (Zosyn 2.25 Gm Iv Premix) 2.25 gm in 50 mls @ 100 mls/hr IVPB Q6H [facility] Last Admin: 09/06/16 10:36 Dose: 100 mls/hr Metoprolol Tartrate (Lopressor) 25 mg PO BID [facility] Last Admin: 09/06/16 10:25 Dose: Not Given Midodrine (Proamatine) 10 mg PO TID [facility] Last Admin: 09/06/16 14:38 Dose: 10 mg Potassium Phos/Sodium Phos (Neutra-Phos) 1 pkt PO Q12H [facility] Last Admin: 09/06/16 10:34 Dose: 1 pkt - Labs Labs: 09/06/16 06:23 09/06/16 06:23 PT 24.4 SECONDS (9.7-12.2) H 09/02/16 06:05 INR 2.1 09/02/16 06:05 APTT 50 SECONDS (21-34) H 09/01/16 00:07 - Constitutional Appears: Chronically Ill - Eye Exam Eye Exam: EOMI - ENT Exam ENT Exam: Mucous Membranes Moist - Neck Exam Neck Exam: Full ROM. absent: Lymphadenopathy - Respiratory Exam Respiratory Exam: Clear to Ausculation Bilateral. absent: Accessory Muscle Use - Cardiovascular Exam Cardiovascular Exam: REGULAR RHYTHM. absent: Rubs - GI/Abdominal Exam GI & Abdominal Exam: Normal Bowel Sounds. absent: Tenderness - Extremities Exam Extremities Exam: Pedal Edema Assessment and Plan - Assessment and Plan (Free Text) Plan: esrd pulmonary htn ischemic cardiomyopathy aicd recurrent chf repeat HD in am continue nutrition seen by palliative care
--- NOTE | 2016-09-06 18:28 | CP.PCM.PN ---
Subjective - Date & Time of Evaluation Date of Evaluation: 09/06/16 Time of Evaluation: 12:40 - Subjective Subjective: clinically same Objective - Vital Signs/Intake and Output Vital Signs (last 24 hours): Temp Pulse Resp BP Pulse Ox 99.7 F H 61 25 H 99/48 L 100 09/06/16 12:00 09/06/16 15:03 09/06/16 15:03 09/06/16 17:41 09/06/16 15:03 Intake and Output: 09/06/16 09/06/16 06:59 18:59 Intake Total 740 405 Balance 740 405 - Medications Medications: Current Medications Acetaminophen (Tylenol 650mg/20.3ml Solution Ud) 650 mg PO Q4 PRN PRN Reason: Headache Last Admin: 09/06/16 11:01 Dose: 650 mg Albuterol/Ipratropium (Duoneb 3 Mg/0.5 Mg (3 Ml) Ud) 3 ml INH RQ4 [facility] Last Admin: 09/06/16 15:43 Dose: 3 ml Amiodarone HCl (Cordarone) 200 mg PO DAILY [facility] Last Admin: 09/06/16 10:21 Dose: 200 mg Clopidogrel Bisulfate (Plavix) 75 mg PO DAILY [facility] Last Admin: 09/06/16 10:20 Dose: 75 mg Docusate Sodium (Colace) 100 mg PO BID PRN PRN Reason: Constipation Last Admin: 09/04/16 11:08 Dose: 100 mg Famotidine (Pepcid) 20 mg PO DAILY [facility] Last Admin: 09/06/16 10:20 Dose: 20 mg Folic Acid (Folic Acid) 1 mg NG DAILY [facility] Last Admin: 09/06/16 10:20 Dose: 1 mg Heparin Sodium (Porcine) (Heparin) 5,000 units SC Q12 [facility] Last Admin: 09/05/16 09:00 Dose: 5,000 units Doxycycline Hyclate 100 mg/ (Sodium Chloride) 100 mls @ 100 mls/hr IVPB Q12H [facility] Last Admin: 09/06/16 11:51 Dose: 100 mls/hr Piperacillin Sod/Tazobactam Sod (Zosyn 2.25 Gm Iv Premix) 2.25 gm in 50 mls @ 100 mls/hr IVPB Q6H [facility] Last Admin: 09/06/16 17:40 Dose: 100 mls/hr Metoprolol Tartrate (Lopressor) 25 mg PO BID [facility] Last Admin: 09/06/16 17:41 Dose: Not Given Midodrine (Proamatine) 10 mg PO TID [facility] Last Admin: 09/06/16 17:40 Dose: 10 mg Potassium Phos/Sodium Phos (Neutra-Phos) 1 pkt PO Q12H [facility] Last Admin: 09/06/16 10:34 Dose: 1 pkt - Labs Labs: 09/06/16 06:23 09/06/16 06:23 PT 24.4 SECONDS (9.7-12.2) H 09/02/16 06:05 INR 2.1 09/02/16 06:05 APTT 50 SECONDS (21-34) H 09/01/16 00:07
[2016-09-07] MEDS: Acetaminophen 650mg/20.3ml solution UD PO PRN ×2 (01:16→10:25)
[2016-09-07] MEDS: Albuterol-Ipratrop 3 mg / 0.5 (3 ml) UD INH SCH ×5 (03:41→20:14)
[2016-09-07] MEDS: Piperacill/Tazo 2.25gm in Dex 2.25 GM/50 ML BAG IVPB SCH ×4 (05:06→22:04)
--- NOTE | 2016-09-07 06:31 | CP.CCUPN ---
<Christina Clark - Last Filed: 09/07/16 19:14> CCU Subjective - Physician Review Subjective (Free Text): 09/07/16 17:27 Patient seen and examined at beside No acute events overnight as per nursing- patient is afebrile Patient was extubated 09/06 and tolerating. Had HD today as per //Sun schedule Patient complaining of diffuse pain throughout body. Patient also complaining of SOB but satting at 100% VSS CCU Objective - Vital Signs / Intake & Output Vital Signs (Last 4 hours): Vital Signs Pulse Resp BP Pulse Ox 09/07/16 04:03 63 19 115/55 L 100 09/07/16 04:00 60 18 100 09/07/16 03:03 71 20 114/58 L 100 09/07/16 03:00 68 22 100 Intake and Output (Last 8hrs): Intake & Output 09/06/16 09/06/16 09/07/16 14:59 22:59 06:59 Intake Total 400 225 220 Balance 400 225 220 Intake: Intake, IV Amount 160 105 100 Left External Jugular 160 105 100 Oral 40 120 120 Tube Feeding 200 - Physical Exam Head: Positive for: Atraumatic, Normocephalic Pupils: Positive for: PERRL Extroacular Muscles: Positive for: EOMI Conjunctiva: Positive for: Normal. Negative for: Injected, Icteric Mouth: Positive for: Dry Pharnyx: Positive for: Normal Neck: Negative for: JVD Respiratory/Chest: Positive for: Decreased Breath Sounds. Negative for: Wheezes , Rales, Rhonchi Cardiovascular: Positive for: Normal S1, S2, Irregular Rhythm. Negative for: Murmurs Abdomen: Positive for: Normal Bowel Sounds. Negative for: Tenderness, Distention Upper Extremity: Positive for: Normal Inspection. Negative for: Cyanosis, Edema Lower Extremity: Positive for: Normal Inspection. Negative for: Edema Neurological: Positive for: Motor Func Grossly Intact Skin: Positive for: Warm, Dry, Normal Color Psychiatric: Positive for: Alert - Medications Active Medications: Active Medications Generic Name Dose Route Start Last Admin Trade Name Freq PRN Reason Stop Dose Admin Acetaminophen 650 mg 09/04/16 20:01 09/07/16 01:16 Tylenol 650mg/20.3ml Solution Ud PO 650 mg Q4 PRN Administration Headache Albuterol/Ipratropium 3 ml 09/01/16 04:00 09/06/16 23:57 Duoneb 3 Mg/0.5 Mg (3 Ml) Ud INH 3 ml RQ4 NEVAEH Administration Amiodarone HCl 200 mg 09/01/16 10:00 09/06/16 10:21 Cordarone PO 200 mg DAILY NEVAEH Administration Clopidogrel Bisulfate 75 mg 09/01/16 10:00 09/06/16 10:20 Plavix PO 75 mg DAILY NEVAEH Administration Docusate Sodium 100 mg 09/01/16 01:47 09/04/16 11:08 Colace PO 100 mg BID PRN Administration Constipation Famotidine 20 mg 09/01/16 10:00 09/06/16 10:20 Pepcid PO 20 mg DAILY NEVAEH Administration Folic Acid 1 mg 09/01/16 10:00 09/06/16 10:20 Folic Acid NG 1 mg DAILY NEVAEH Administration Heparin Sodium (Porcine) 5,000 units 09/02/16 22:00 09/05/16 09:00 Heparin SC 5,000 units Q12 NEVAEH Administration Doxycycline Hyclate 100 mg/ 100 mls @ 100 mls/hr 09/02/16 23:30 09/06/16 22: 43 Sodium Chloride IVPB 100 mls/hr Q12H NEVAEH Administration Piperacillin Sod/Tazobactam Sod 2.25 gm in 50 mls @ 100 mls/hr 09/05/16 11:00 09/07/16 05:06 Zosyn 2.25 Gm Iv Premix IVPB 100 mls/hr Q6H NEVAEH Administration Metoprolol Tartrate 25 mg 09/01/16 10:00 09/06/16 17:41 Lopressor PO Not Given BID NEVAEH Midodrine 10 mg 09/04/16 14:00 09/06/16 17:40 Proamatine PO 10 mg TID NEVAEH Administration Potassium Phos/Sodium Phos 1 pkt 09/06/16 10:00 09/06/16 22:04 Neutra-Phos PO 1 pkt Q12H NEVAEH Administration - Patient Studies Lab Studies: Microbiology Studies 09/02/16 13:30 Blood Culture - Preliminary Blood-Venous NO GROWTH AFTER 4 DAYS 09/02/16 13:30 Blood Culture - Preliminary Blood-Venous NO GROWTH AFTER 4 DAYS Lab Studies 09/06/16 09/06/16 Range/Units 06:23 06:23 WBC 4.7 L (4.8-10.8) K/uL RBC 2.43 L (3.80-5.20) Mil/uL Hgb 8.3 L (11.0-16.0) g/dL Hct 26.6 L (34.0-47.0) % MCV 109.5 H (81.0-99.0) fL MCH 34.0 H (27.0-31.0) pg MCHC 31.0 L (33.0-37.0) g/dL RDW 19.0 H (11.5-14.5) % Plt Count 110 L D (130-400) K/uL MPV 10.7 (7.2-11.7) fL Neut % (Auto) 75.3 H (50.0-75.0) % Lymph % (Auto) 9.4 L (20.0-40.0) % Imperial % (Auto) 11.9 H (0.0-10.0) % Eos % (Auto) 2.5 (0.0-4.0) % Baso % (Auto) 0.9 (0.0-2.0) % Neut # 3.5 (1.8-7.0) K/uL Lymph # 0.4 L (1.0-4.3) K/uL Imperial # 0.6 (0.0-0.8) K/uL Eos # 0.1 (0.0-0.7) K/uL Baso # 0.0 (0.0-0.2) K/uL Neutrophils % (Manual) 85 H (50-75) % Lymphocytes % (Manual) 3 L (20-40) % Monocytes % (Manual) 9 (0-10) % Eosinophils % (Manual) 3 (0-4) % Platelet Estimate Slightly decreased L (NORMAL) Hypochromasia (manual) Slight Poikilocytosis (manual Slight Anisocytosis (manual) Slight Macrocytosis (manual) Slight Sodium 136 (132-148) mmol/L Potassium 5.3 H (3.6-5.2) mmol/L Chloride 97 L (98-107) mmol/L Carbon Dioxide 26 (22-30) mmol/L Anion Gap 18 (10-20) BUN 39 H (7-17) mg/dL Creatinine 1.9 H (0.7-1.2) MG/DL Est GFR ( Amer) 32 Est GFR (Non-Af Amer) 26 Random Glucose 93 (65-105) mg/dL Calcium 7.6 L (8.6-10.4) mg/dl Phosphorus 1.6 L (2.5-4.5) mg/dL Magnesium 2.0 (1.6-2.3) mg/dL Total Bilirubin 1.7 H (0.2-1.3) mg/dL AST 62 H D (14-36) U/L ALT 9 D (9-52) U/L Alkaline Phosphatase 169 H D (38-126) U/L Total Protein 9.1 H (6.3-8.3) g/dL Albumin 4.0 (3.5-5.0) g/dL Globulin 5.1 H (2.2-3.9) gm/dL Albumin/Globulin Ratio 0.8 L (1.0-2.1) Laboratory Results - last 24 hr 09/06/16 09/06/16 06:23 06:23 WBC 4.7 L RBC 2.43 L Hgb 8.3 L Hct 26.6 L MCV 109.5 H MCH 34.0 H MCHC 31.0 L RDW 19.0 H Plt Count 110 L D MPV 10.7 Neut % (Auto) 75.3 H Lymph % (Auto) 9.4 L Imperial % (Auto) 11.9 H Eos % (Auto) 2.5 Baso % (Auto) 0.9 Neut # 3.5 Lymph # 0.4 L Imperial # 0.6 Eos # 0.1 Baso # 0.0 Neutrophils % (Manual) 85 H Lymphocytes % (Manual) 3 L Monocytes % (Manual) 9 Eosinophils % (Manual) 3 Platelet Estimate Slightly decreased L Hypochromasia (manual) Slight Poikilocytosis (manual Slight Anisocytosis (manual) Slight Macrocytosis (manual) Slight Sodium 136 Potassium 5.3 H Chloride 97 L Carbon Dioxide 26 Anion Gap 18 BUN 39 H Creatinine 1.9 H Est GFR ( Amer) 32 Est GFR (Non-Af Amer) 26 Random Glucose 93 Calcium 7.6 L Phosphorus 1.6 L Magnesium 2.0 Total Bilirubin 1.7 H AST 62 H D ALT 9 D Alkaline Phosphatase 169 H D Total Protein 9.1 H Albumin 4.0 Globulin 5.1 H Albumin/Globulin Ratio 0.8 L Review of Systems - Constitutional Constitutional: absent: Fever, Chills - EENT Eyes: As Per HPI, Dry Eye Ears: As Per HPI. absent: Dizziness Nose/Mouth/Throat: As Per HPI. absent: Sore Throat - Cardiovascular Cardiovascular: As Per HPI. absent: Chest Pain, Palpitations - Respiratory Respiratory: As Per HPI, Dyspnea. absent: Cough - Gastrointestinal Gastrointestinal: As Per HPI. absent: Abdominal Pain, Constipation, Diarrhea, Nausea, Vomiting - Genitourinary Genitourinary: As Per HPI. absent: Dysuria - Musculoskeletal Musculoskeletal: As Par HPI, Arthralgias, Myalgias. absent: Numbness, Tingling - Integumentary Integumentary: As Per HPI, Dry Skin - Neurological Neurological: As Per HPI, Headaches. absent: Dizziness Assessment/Plan - Assessment and Plan (Free Text) Assessment: 66yo F PMHx CAD, HTN, HLD, ESRD on HD (//), right AV shunt, arthritis, scleroderma, Asthma, COPD, CHF, glaucoma, afib, PPM, depression, admitted for acute hypoxic respiratory failure Plan: Neuro: -Alert and following commands -Tylenol 650mg carmen for headache -AO x 3 Pulm: -patient on mask satting 100% -CT chest (09/06/16): Moderate to large b/l pleural effusion slightly larger on left. Cardiomegaly. ET/NGT in place. [id number] pulm vascular congestion ( see full report) -IR consulted for thoracentesis when INR improves and s/p FFP -Duoneb 3ml inh q4 -f/u Mycoplasma IgM -f/u Legionella CV: -Hemodynamically stable- Afib rate controlled -Midodrine 10mg po tid -Lopressor 25mg po bid -Amiodarone 200mg po daily -Plavix 75mg po daily on hold Hem: -Pancytopenia -INR 1.2 -Patient to be transfused 2units FFP -Heme/onc Dr Chairez consulted Renal: -ESRD on HD //Sun -Nephro following Endo: -No acute issues GI: -NPO -NGT Novasource @ goal rate 40cc/hr -Colace 100mg po bid ID: -Procalcitonin 1.32 -Zosyn 2.25gm ivpb q6 (start 09/05/16) -Doxycycline 100mg ivpb q12 (start 09/02/16) -Blood culture negative x 2 on 09/02 -Blood culture negative x 2 on 08/31 DVT proph: heparin 5000u sc q12 on hold GI proph: Pepcid 20mg po daily. swallow eval. sauceda for strict I/O's during acute illness Code status: full code Case discussed with Dr. Sue Clark PGY2 <Kev Rogers - Last Filed: 09/08/16 13:47> CCU Objective - Vital Signs / Intake & Output Vital Signs (Last 4 hours): Vital Signs Temp Pulse Resp BP Pulse Ox 09/07/16 18:07 74 22 121/59 L 100 09/07/16 18:00 61 20 100 09/07/16 17:07 69 22 115/61 100 09/07/16 17:00 72 23 100 09/07/16 16:07 62 22 105/50 L 100 09/07/16 16:00 97.5 F L 67 25 H 100 09/07/16 15:07 63 21 103/51 L 100 09/07/16 15:00 61 20 100 Intake and Output (Last 8hrs): Intake & Output 09/07/16 09/07/16 09/07/16 06:59 14:59 22:59 Intake Total 220 150 25 Output Total 0 Balance 220 150 25 Weight 140 lb 141 lb Intake: Intake, IV Amount 100 150 0 Left External Jugular 100 150 0 Oral 120 0 25 Tube Feeding 0 Output: Stool 0 - Medications Active Medications: Active Medications Generic Name Dose Route Start Last Admin Trade Name Freq PRN Reason Stop Dose Admin Acetaminophen 650 mg 09/04/16 20:01 09/07/16 10:25 Tylenol 650mg/20.3ml Solution Ud PO 650 mg Q4 PRN Administration Headache Albuterol/Ipratropium 3 ml 09/01/16 04:00 09/07/16 14:03 Duoneb 3 Mg/0.5 Mg (3 Ml) Ud INH 3 ml RQ4 NEVAEH Administration Amiodarone HCl 200 mg 09/01/16 10:00 09/07/16 10:25 Cordarone PO 200 mg DAILY NEVAEH Administration Clopidogrel Bisulfate 75 mg 09/01/16 10:00 09/07/16 10:26 Plavix PO Not Given DAILY [facility] Docusate Sodium 100 mg 09/01/16 01:47 09/04/16 11:08 Colace PO 100 mg BID PRN Administration Constipation Famotidine 20 mg 09/01/16 10:00 09/07/16 10:25 Pepcid PO 20 mg DAILY NEVAEH Administration Folic Acid 1 mg 09/01/16 10:00 09/07/16 10:25 Folic Acid NG 1 mg DAILY NEVAEH Administration Heparin Sodium (Porcine) 5,000 units 09/02/16 22:00 09/05/16 09:00 Heparin SC 5,000 units Q12 NEVAEH Administration Doxycycline Hyclate 100 mg/ 100 mls @ 100 mls/hr 09/02/16 23:30 09/07/16 12: 11 Sodium Chloride IVPB 100 mls/hr Q12H NEVAEH Administration Piperacillin Sod/Tazobactam Sod 2.25 gm in 50 mls @ 100 mls/hr 09/05/16 11:00 09/07/16 17:47 Zosyn 2.25 Gm Iv Premix IVPB 100 mls/hr Q6H NEVAEH Administration Metoprolol Tartrate 25 mg 09/01/16 10:00 09/07/16 17:47 Lopressor PO Not Given BID [facility] Midodrine 10 mg 09/04/16 14:00 09/07/16 17:47 Proamatine PO 10 mg TID NEVAEH Administration Potassium Phos/Sodium Phos 1 pkt 09/06/16 10:00 09/07/16 10:25 Neutra-Phos PO 1 pkt Q12H NEVAEH Administration - Patient Studies Lab Studies: Microbiology Studies 09/05/16 08:05 Legionella Culture - Preliminary Other: Please Indicate 09/02/16 13:30 Blood Culture - Final Blood-Venous NO GROWTH AFTER 5 DAYS Gram Stain - Final TEST NOT PERFORMED 09/02/16 13:30 Blood Culture - Final Blood-Venous NO GROWTH AFTER 5 DAYS Gram Stain - Final TEST NOT PERFORMED Lab Studies 09/07/16 09/07/16 09/07/16 Range/Units 15:06 15:06 13:31 WBC (4.8-10.8) K/uL RBC (3.80-5.20) Mil/uL Hgb (11.0-16.0) g/dL Hct (34.0-47.0) % MCV (81.0-99.0) fL MCH (27.0-31.0) pg MCHC (33.0-37.0) g/dL RDW (11.5-14.5) % Plt Count (130-400) K/uL MPV (7.2-11.7) fL Neut % (Auto) (50.0-75.0) % Lymph % (Auto) (20.0-40.0) % Imperial % (Auto) (0.0-10.0) % Eos % (Auto) (0.0-4.0) % Baso % (Auto) (0.0-2.0) % Neut # (1.8-7.0) K/uL Lymph # (1.0-4.3) K/uL Imperial # (0.0-0.8) K/uL Eos # (0.0-0.7) K/uL Baso # (0.0-0.2) K/uL Neutrophils % (Manual) (50-75) % Lymphocytes % (Manual) (20-40) % Monocytes % (Manual) (0-10) % Eosinophils % (Manual) (0-4) % Platelet Estimate (NORMAL) Plt Clumps, EDTA Anisocytosis (manual) Macrocytosis (manual) PT 13.2 H (9.7-12.2) SECONDS INR 1.2 APTT 44 H (21-34) SECONDS Fibrinogen 346 (200-400) mg/dL Puncture Site Lb pCO2 46 H (35-45) mm/Hg pO2 76 L (80-100) mm/Hg HCO3 28.4 H (21-28) mmol/L ABG pH 7.42 (7.35-7.45) ABG Total CO2 31.2 H (22-28) mmol/L ABG O2 Saturation 98.0 (95-98) % ABG Base Excess 4.5 H (-2.0-3.0) mmol/L Gumaro Test Na ABG Potassium 3.4 L (3.6-5.2) mmol/L A-a O2 Difference 152.0 mm/Hg Respiratory Index 2.0 Glucose 88 (65-105) mg/dl Lactate 0.9 (0.7-2.1) mmol/L FiO2 40.0 % Sodium 138.0 (132-148) mmol/L Potassium (3.6-5.2) mmol/L Chloride 103.0 (98-107) mmol/L Carbon Dioxide (22-30) mmol/L Anion Gap (10-20) BUN (7-17) mg/dL Creatinine (0.7-1.2) MG/DL Est GFR ( Amer) Est GFR (Non-Af Amer) Random Glucose (65-105) mg/dL Calcium (8.6-10.4) mg/dl Phosphorus (2.5-4.5) mg/dL Magnesium (1.6-2.3) mg/dL Total Bilirubin (0.2-1.3) mg/dL AST (14-36) U/L ALT (9-52) U/L Alkaline Phosphatase (38-126) U/L Total Protein (6.3-8.3) g/dL Albumin (3.5-5.0) g/dL Globulin (2.2-3.9) gm/dL Albumin/Globulin Ratio (1.0-2.1) Arterial Blood Potassium 3.4 L (3.6-5.2) mmol/L Mycoplasma pneumon IgG (<=0.90) Mycoplasma pneumon IgM (<770) U/mL Blood Type O POSITIVE Antibody Screen Positive Antibody Identification Anti E 09/07/16 09/07/16 09/07/16 Range/Units 10:42 06:27 06:27 WBC 3.3 L 2.8 L (4.8-10.8) K/uL RBC 2.50 L 2.44 L (3.80-5.20) Mil/uL Hgb 8.5 L 8.2 L (11.0-16.0) g/dL Hct 27.0 L 26.7 L (34.0-47.0) % MCV 108.2 H 109.4 H (81.0-99.0) fL MCH 33.9 H 33.6 H (27.0-31.0) pg MCHC 31.3 L 30.7 L (33.0-37.0) g/dL RDW 17.9 H 18.3 H (11.5-14.5) % Plt Count 64 L 54 L D (130-400) K/uL MPV 10.6 11.2 (7.2-11.7) fL Neut % (Auto) 72.6 71.6 (50.0-75.0) % Lymph % (Auto) 13.4 L 13.7 L (20.0-40.0) % Imperial % (Auto) 11.4 H 10.9 H (0.0-10.0) % Eos % (Auto) 2.2 2.5 (0.0-4.0) % Baso % (Auto) 0.4 1.3 (0.0-2.0) % Neut # 2.4 2.0 (1.8-7.0) K/uL Lymph # 0.4 L 0.4 L (1.0-4.3) K/uL Imperial # 0.4 0.3 (0.0-0.8) K/uL Eos # 0.1 0.1 (0.0-0.7) K/uL Baso # 0.0 0.0 (0.0-0.2) K/uL Neutrophils % (Manual) 78 H (50-75) % Lymphocytes % (Manual) 8 L (20-40) % Monocytes % (Manual) 12 H (0-10) % Eosinophils % (Manual) 2 (0-4) % Platelet Estimate Decreased L (NORMAL) Plt Clumps, EDTA Present Anisocytosis (manual) Slight Macrocytosis (manual) Moderate PT (9.7-12.2) SECONDS INR APTT (21-34) SECONDS Fibrinogen (200-400) mg/dL Puncture Site pCO2 (35-45) mm/Hg pO2 (80-100) mm/Hg HCO3 (21-28) mmol/L ABG pH (7.35-7.45) ABG Total CO2 (22-28) mmol/L ABG O2 Saturation (95-98) % ABG Base Excess (-2.0-3.0) mmol/L Gumaro Test ABG Potassium (3.6-5.2) mmol/L A-a O2 Difference mm/Hg Respiratory Index Glucose (65-105) mg/dl Lactate (0.7-2.1) mmol/L FiO2 % Sodium 136 (132-148) mmol/L Potassium 4.7 (3.6-5.2) mmol/L Chloride 92 L (98-107) mmol/L Carbon Dioxide 25 (22-30) mmol/L Anion Gap 24 H (10-20) BUN 52 H (7-17) mg/dL Creatinine 2.7 H (0.7-1.2) MG/DL Est GFR ( Amer) 21 Est GFR (Non-Af Amer) 18 Random Glucose 107 H (65-105) mg/dL Calcium 7.9 L (8.6-10.4) mg/dl Phosphorus 2.5 (2.5-4.5) mg/dL Magnesium 2.0 (1.6-2.3) mg/dL Total Bilirubin 1.0 (0.2-1.3) mg/dL AST 21 (14-36) U/L ALT 11 (9-52) U/L Alkaline Phosphatase 124 (38-126) U/L Total Protein 8.4 H (6.3-8.3) g/dL Albumin 4.0 (3.5-5.0) g/dL Globulin 4.3 H (2.2-3.9) gm/dL Albumin/Globulin Ratio 0.9 L (1.0-2.1) Arterial Blood Potassium (3.6-5.2) mmol/L Mycoplasma pneumon IgG (<=0.90) Mycoplasma pneumon IgM (<770) U/mL Blood Type Antibody Screen Antibody Identification 09/05/16 Range/Units 11:52 WBC (4.8-10.8) K/uL RBC (3.80-5.20) Mil/uL Hgb (11.0-16.0) g/dL Hct (34.0-47.0) % MCV (81.0-99.0) fL MCH (27.0-31.0) pg MCHC (33.0-37.0) g/dL RDW (11.5-14.5) % Plt Count (130-400) K/uL MPV (7.2-11.7) fL Neut % (Auto) (50.0-75.0) % Lymph % (Auto) (20.0-40.0) % Imperial % (Auto) (0.0-10.0) % Eos % (Auto) (0.0-4.0) % Baso % (Auto) (0.0-2.0) % Neut # (1.8-7.0) K/uL Lymph # (1.0-4.3) K/uL Imperial # (0.0-0.8) K/uL Eos # (0.0-0.7) K/uL Baso # (0.0-0.2) K/uL Neutrophils % (Manual) (50-75) % Lymphocytes % (Manual) (20-40) % Monocytes % (Manual) (0-10) % Eosinophils % (Manual) (0-4) % Platelet Estimate (NORMAL) Plt Clumps, EDTA Anisocytosis (manual) Macrocytosis (manual) PT (9.7-12.2) SECONDS INR APTT (21-34) SECONDS Fibrinogen (200-400) mg/dL Puncture Site pCO2 (35-45) mm/Hg pO2 (80-100) mm/Hg HCO3 (21-28) mmol/L ABG pH (7.35-7.45) ABG Total CO2 (22-28) mmol/L ABG O2 Saturation (95-98) % ABG Base Excess (-2.0-3.0) mmol/L Gumaro Test ABG Potassium (3.6-5.2) mmol/L A-a O2 Difference mm/Hg Respiratory Index Glucose (65-105) mg/dl Lactate (0.7-2.1) mmol/L FiO2 % Sodium (132-148) mmol/L Potassium (3.6-5.2) mmol/L Chloride (98-107) mmol/L Carbon Dioxide (22-30) mmol/L Anion Gap (10-20) BUN (7-17) mg/dL Creatinine (0.7-1.2) MG/DL Est GFR ( Amer) Est GFR (Non-Af Amer) Random Glucose (65-105) mg/dL Calcium (8.6-10.4) mg/dl Phosphorus (2.5-4.5) mg/dL Magnesium (1.6-2.3) mg/dL Total Bilirubin (0.2-1.3) mg/dL AST (14-36) U/L ALT (9-52) U/L Alkaline Phosphatase (38-126) U/L Total Protein (6.3-8.3) g/dL Albumin (3.5-5.0) g/dL Globulin (2.2-3.9) gm/dL Albumin/Globulin Ratio (1.0-2.1) Arterial Blood Potassium (3.6-5.2) mmol/L Mycoplasma pneumon IgG <=0.90 (<=0.90) Mycoplasma pneumon IgM 112 (<770) U/mL Blood Type Antibody Screen Antibody Identification Laboratory Results - last 24 hr 09/05/16 09/07/16 09/07/16 11:52 06:27 06:27 WBC 2.8 L RBC 2.44 L Hgb 8.2 L Hct 26.7 L MCV 109.4 H MCH 33.6 H MCHC 30.7 L RDW 18.3 H Plt Count 54 L D MPV 11.2 Neut % (Auto) 71.6 Lymph % (Auto) 13.7 L Imperial % (Auto) 10.9 H Eos % (Auto) 2.5 Baso % (Auto) 1.3 Neut # 2.0 Lymph # 0.4 L Imperial # 0.3 Eos # 0.1 Baso # 0.0 Neutrophils % (Manual) Lymphocytes % (Manual) Monocytes % (Manual) Eosinophils % (Manual) Platelet Estimate Plt Clumps, EDTA Anisocytosis (manual) Macrocytosis (manual) PT INR APTT Fibrinogen Puncture Site pCO2 pO2 HCO3 ABG pH ABG Total CO2 ABG O2 Saturation ABG Base Excess Gumaro Test ABG Potassium A-a O2 Difference Respiratory Index Glucose Lactate FiO2 Sodium 136 Potassium 4.7 Chloride 92 L Carbon Dioxide 25 Anion Gap 24 H BUN 52 H Creatinine 2.7 H Est GFR ( Amer) 21 Est GFR (Non-Af Amer) 18 Random Glucose 107 H Calcium 7.9 L Phosphorus 2.5 Magnesium 2.0 Total Bilirubin 1.0 AST 21 ALT 11 Alkaline Phosphatase 124 Total Protein 8.4 H Albumin 4.0 Globulin 4.3 H Albumin/Globulin Ratio 0.9 L Arterial Blood Potassium Mycoplasma pneumon IgG <=0.90 Mycoplasma pneumon IgM 112 Blood Type Antibody Screen Antibody Identification 09/07/16 09/07/16 09/07/16 10:42 13:31 15:06 WBC 3.3 L RBC 2.50 L Hgb 8.5 L Hct 27.0 L MCV 108.2 H MCH 33.9 H MCHC 31.3 L RDW 17.9 H Plt Count 64 L MPV 10.6 Neut % (Auto) 72.6 Lymph % (Auto) 13.4 L Imperial % (Auto) 11.4 H Eos % (Auto) 2.2 Baso % (Auto) 0.4 Neut # 2.4 Lymph # 0.4 L Imperial # 0.4 Eos # 0.1 Baso # 0.0 Neutrophils % (Manual) 78 H Lymphocytes % (Manual) 8 L Monocytes % (Manual) 12 H Eosinophils % (Manual) 2 Platelet Estimate Decreased L Plt Clumps, EDTA Present Anisocytosis (manual) Slight Macrocytosis (manual) Moderate PT 13.2 H INR 1.2 APTT 44 H Fibrinogen 346 Puncture Site Lb pCO2 46 H pO2 76 L HCO3 28.4 H ABG pH 7.42 ABG Total CO2 31.2 H ABG O2 Saturation 98.0 ABG Base Excess 4.5 H Gumaro Test Na ABG Potassium 3.4 L A-a O2 Difference 152.0 Respiratory Index 2.0 Glucose 88 Lactate 0.9 FiO2 40.0 Sodium 138.0 Potassium Chloride 103.0 Carbon Dioxide Anion Gap BUN Creatinine Est GFR ( Amer) Est GFR (Non-Af Amer) Random Glucose Calcium Phosphorus Magnesium Total Bilirubin AST ALT Alkaline Phosphatase Total Protein Albumin Globulin Albumin/Globulin Ratio Arterial Blood Potassium 3.4 L Mycoplasma pneumon IgG Mycoplasma pneumon IgM Blood Type Antibody Screen Antibody Identification 09/07/16 15:06 WBC RBC Hgb Hct MCV MCH MCHC RDW Plt Count MPV Neut % (Auto) Lymph % (Auto) Imperial % (Auto) Eos % (Auto) Baso % (Auto) Neut # Lymph # Imperial # Eos # Baso # Neutrophils % (Manual) Lymphocytes % (Manual) Monocytes % (Manual) Eosinophils % (Manual) Platelet Estimate Plt Clumps, EDTA Anisocytosis (manual) Macrocytosis (manual) PT INR APTT Fibrinogen Puncture Site pCO2 pO2 HCO3 ABG pH ABG Total CO2 ABG O2 Saturation ABG Base Excess Gumaro Test ABG Potassium A-a O2 Difference Respiratory Index Glucose Lactate FiO2 Sodium Potassium Chloride Carbon Dioxide Anion Gap BUN Creatinine Est GFR ( Amer) Est GFR (Non-Af Amer) Random Glucose Calcium Phosphorus Magnesium Total Bilirubin AST ALT Alkaline Phosphatase Total Protein Albumin Globulin Albumin/Globulin Ratio Arterial Blood Potassium Mycoplasma pneumon IgG Mycoplasma pneumon IgM Blood Type O POSITIVE Antibody Screen Positive Antibody Identification Anti E Assessment/Plan (1) Respiratory failure Current Visit: Yes Status: Acute Attending/Attestation - Attestation I have personally seen and examined this patient.: Yes I have fully participated in the care of the patient.: Yes I have reviewed all pertinent clinical information: Yes Notes (Text): 09/07/16 18:52 I have seen and examined the patient. Medical records, lab studies, and imaging were reviewed by me and a management plan was formulated on multidisciplinary rounds with resident Dr. Clark. I agree with their above documented assessment and plan. Patient is intermittently SOB. Dialysis not helping chronic effusions. Holding ASA, Plavix and elevated INR. Giving FFP. Hopefully thoracentesis by Sunday. Critical Care Time 35 minutes. Multi-disciplinary rounds were performed with house staff, nursing, speech therapy, respiratory therapy, pharmacy and nutrition with integrated input from the primary team/attending and other consulting services. The documented time is cumulative and includes review of patient data/exams/labs/chart review and examination of the patient on rounds and throughout the day; time is exclusive of any procedures or teaching time. 09/07/16 18:55
[2016-09-07 06:36] LABS: BASO % 1.3 % (0.0-2.0); EOS # 0.1 K/uL (0.0-0.7); EOS % 2.5 % (0.0-4.0); HEMOGLOBIN 8.2 g/dL (11.0-16.0); LYMPH # 0.4 K/uL (1.0-4.3); LYMPH % 13.7 % (20.0-40.0); MEAN CELL VOLUME 109.4 fL (81.0-99.0); MEAN CORPUSCULAR HEMOGLOBIN 33.6 pg (27.0-31.0); MEAN CORPUSCULAR HGB CONC 30.7 g/dL (33.0-37.0); MEAN PLATELET VOLUME 11.2 fL (7.2-11.7); MONO # 0.3 K/uL (0.0-0.8); MONO % 10.9 % (0.0-10.0); NEUT % 71.6 % (50.0-75.0); RBC 2.44 Mil/uL (3.80-5.20); RED CELL DISTRIBUTION WIDTH 18.3 % (11.5-14.5); WHITE BLOOD COUNT 2.8 K/uL (4.8-10.8)
[2016-09-07 07:00] LABS: ALB/GLOB RATIO 0.9 (1.0-2.1); CALCIUM 7.9 mg/dl (8.6-10.4)
[2016-09-07] MEDS: Potassium & Sodium Phosphate PO SCH ×2 (10:25→22:03)
[2016-09-07 10:56] LABS: BASO % 0.4 % (0.0-2.0); EOS # 0.1 K/uL (0.0-0.7); EOS % 2.2 % (0.0-4.0); HEMOGLOBIN 8.5 g/dL (11.0-16.0); LYMPH # 0.4 K/uL (1.0-4.3); LYMPH % 13.4 % (20.0-40.0); MEAN CELL VOLUME 108.2 fL (81.0-99.0); MEAN CORPUSCULAR HEMOGLOBIN 33.9 pg (27.0-31.0); MEAN CORPUSCULAR HGB CONC 31.3 g/dL (33.0-37.0); MEAN PLATELET VOLUME 10.6 fL (7.2-11.7); MONO # 0.4 K/uL (0.0-0.8); MONO % 11.4 % (0.0-10.0); NEUT # 2.4 K/uL (1.8-7.0); NEUT % 72.6 % (50.0-75.0); PLATELET COUNT 64 K/uL (130-400); RED CELL DISTRIBUTION WIDTH 17.9 % (11.5-14.5); WHITE BLOOD COUNT 3.3 K/uL (4.8-10.8)
[2016-09-07] MEDS ORDERED: EPOETIN ALFA 10,000 UNIT/ML ML IV ONE (11:04)
[2016-09-07] MEDS ORDERED: Epoetin Alfa 10,000 unit/ml Dialysis IV ONE (11:30)
[2016-09-07 13:34] LABS: ARTERIAL BLOOD GAS HCO3 28.4 mmol/L (21-28); ARTERIAL BLOOD GAS PCO2 46 mm/Hg (35-45); ARTERIAL BLOOD GAS PH 7.42 (7.35-7.45); ARTERIAL BLOOD GAS PO2 76 mm/Hg (80-100); ARTERIAL BLOOD GAS TCO2 31.2 mmol/L (22-28)
[2016-09-07 14:35] LABS: EOSINOPHIL 2 % (0-4); LYMPHOCYTE 8 % (20-40); MONOCYTE 12 % (0-10); NEUTROPHIL 78 % (50-75); TOTAL CELLS COUNTED 100
[2016-09-07 14:36] LABS: ANISOCYTOSIS SLIGHT; PLATELET CLUMPS PRESENT; PLATELET ESTIMATE DECREASED (NORMAL)
[2016-09-07 15:31] LABS: INR 1.2; PROTHROMBIN TIME 13.2 SECONDS (9.7-12.2)
--- NOTE | 2016-09-07 16:17 | CP.PCM.PN ---
Subjective - Date & Time of Evaluation Date of Evaluation: 09/07/16 Time of Evaluation: 11:40 - Subjective Subjective: clinically same Objective - Vital Signs/Intake and Output Vital Signs (last 24 hours): Temp Pulse Resp BP Pulse Ox 97.2 F L 60 17 103/54 L 100 09/07/16 12:00 09/07/16 14:07 09/07/16 14:07 09/07/16 14:07 09/07/16 14:07 Intake and Output: 09/07/16 09/07/16 06:59 18:59 Intake Total 390 150 Balance 390 150 - Medications Medications: Current Medications Acetaminophen (Tylenol 650mg/20.3ml Solution Ud) 650 mg PO Q4 PRN PRN Reason: Headache Last Admin: 09/07/16 10:25 Dose: 650 mg Albuterol/Ipratropium (Duoneb 3 Mg/0.5 Mg (3 Ml) Ud) 3 ml INH RQ4 ON LICENSE OF [facility] Last Admin: 09/07/16 14:03 Dose: 3 ml Amiodarone HCl (Cordarone) 200 mg PO DAILY [facility] OF [facility] Last Admin: 09/07/16 10:25 Dose: 200 mg Clopidogrel Bisulfate (Plavix) 75 mg PO DAILY [facility] OF [facility] Last Admin: 09/07/16 10:26 Dose: Not Given Docusate Sodium (Colace) 100 mg PO BID PRN PRN Reason: Constipation Last Admin: 09/04/16 11:08 Dose: 100 mg Famotidine (Pepcid) 20 mg PO DAILY [facility] Last Admin: 09/07/16 10:25 Dose: 20 mg Folic Acid (Folic Acid) 1 mg NG DAILY [facility] Last Admin: 09/07/16 10:25 Dose: 1 mg Heparin Sodium (Porcine) (Heparin) 5,000 units SC Q12 ON [facility] OF [facility] Last Admin: 09/05/16 09:00 Dose: 5,000 units Doxycycline Hyclate 100 mg/ (Sodium Chloride) 100 mls @ 100 mls/hr IVPB Q12H ON LICENSE OF [facility] Last Admin: 09/06/16 22:43 Dose: 100 mls/hr Piperacillin Sod/Tazobactam Sod (Zosyn 2.25 Gm Iv Premix) 2.25 gm in 50 mls @ 100 mls/hr IVPB Q6H ON [facility] OF [facility] Last Admin: 09/07/16 10:27 Dose: 100 mls/hr Metoprolol Tartrate (Lopressor) 25 mg PO BID ON [facility] OF [facility] Last Admin: 09/07/16 09:58 Dose: Not Given Midodrine (Proamatine) 10 mg PO TID ON [facility] OF [facility] Last Admin: 09/07/16 10:25 Dose: 10 mg Potassium Phos/Sodium Phos (Neutra-Phos) 1 pkt PO Q12H ON [facility] OF [facility] Last Admin: 09/07/16 10:25 Dose: 1 pkt - Labs Labs: 09/07/16 10:42 09/07/16 06:27 PT 13.2 SECONDS (9.7-12.2) H 09/07/16 15:06 INR 1.2 09/07/16 15:06 APTT 44 SECONDS (21-34) H 09/07/16 15:06 - Constitutional Appears: Well - Head Exam Head Exam: ATRAUMATIC, NORMAL INSPECTION, NORMOCEPHALIC - Eye Exam Eye Exam: EOMI, Normal appearance, PERRL Pupil Exam: NORMAL ACCOMODATION, PERRL - ENT Exam ENT Exam: Mucous Membranes Moist, Normal Exam - Neck Exam Neck Exam: Full ROM, Normal Inspection. absent: Lymphadenopathy - Respiratory Exam Respiratory Exam: Decreased Breath Sounds - Cardiovascular Exam Cardiovascular Exam: REGULAR RHYTHM, +S1, +S2 - GI/Abdominal Exam GI & Abdominal Exam: Soft, Diminished Bowel Sounds - Rectal Exam Rectal Exam: Deferred
[2016-09-07] MEDS ORDERED: Oxycodone/Acetaminophen 5/325 mg Tab PO ONE (18:14)
--- NOTE | 2016-09-07 18:15 | CP.PCM.PN ---
Subjective - Date & Time of Evaluation Date of Evaluation: 09/07/16 Time of Evaluation: 18:12 - Subjective Subjective: extubated, on face mask c/o sob ongoing hd tolerating well Objective - Vital Signs/Intake and Output Vital Signs (last 24 hours): Temp Pulse Resp BP Pulse Ox 97.5 F L 69 22 115/61 100 09/07/16 16:00 09/07/16 17:07 09/07/16 17:07 09/07/16 17:07 09/07/16 17:07 Intake and Output: 09/07/16 09/07/16 06:59 18:59 Intake Total 390 150 Output Total 0 Balance 390 150 - Medications Medications: Current Medications Acetaminophen (Tylenol 650mg/20.3ml Solution Ud) 650 mg PO Q4 PRN PRN Reason: Headache Last Admin: 09/07/16 10:25 Dose: 650 mg Albuterol/Ipratropium (Duoneb 3 Mg/0.5 Mg (3 Ml) Ud) 3 ml INH RQ4 [facility] Last Admin: 09/07/16 14:03 Dose: 3 ml Amiodarone HCl (Cordarone) 200 mg PO DAILY [facility] Last Admin: 09/07/16 10:25 Dose: 200 mg Clopidogrel Bisulfate (Plavix) 75 mg PO DAILY [facility] Last Admin: 09/07/16 10:26 Dose: Not Given Docusate Sodium (Colace) 100 mg PO BID PRN PRN Reason: Constipation Last Admin: 09/04/16 11:08 Dose: 100 mg Famotidine (Pepcid) 20 mg PO DAILY [facility] Last Admin: 09/07/16 10:25 Dose: 20 mg Folic Acid (Folic Acid) 1 mg NG DAILY [facility] Last Admin: 09/07/16 10:25 Dose: 1 mg Heparin Sodium (Porcine) (Heparin) 5,000 units SC Q12 [facility] Last Admin: 09/05/16 09:00 Dose: 5,000 units Doxycycline Hyclate 100 mg/ (Sodium Chloride) 100 mls @ 100 mls/hr IVPB Q12H [facility] Last Admin: 09/07/16 12:11 Dose: 100 mls/hr Piperacillin Sod/Tazobactam Sod (Zosyn 2.25 Gm Iv Premix) 2.25 gm in 50 mls @ 100 mls/hr IVPB Q6H [facility] Last Admin: 09/07/16 17:47 Dose: 100 mls/hr Metoprolol Tartrate (Lopressor) 25 mg PO BID [facility] Last Admin: 09/07/16 17:47 Dose: Not Given Midodrine (Proamatine) 10 mg PO TID [facility] Last Admin: 09/07/16 17:47 Dose: 10 mg Potassium Phos/Sodium Phos (Neutra-Phos) 1 pkt PO Q12H [facility] Last Admin: 09/07/16 10:25 Dose: 1 pkt - Labs Labs: 09/07/16 10:42 09/07/16 06:27 PT 13.2 SECONDS (9.7-12.2) H 09/07/16 15:06 INR 1.2 09/07/16 15:06 APTT 44 SECONDS (21-34) H 09/07/16 15:06 - Constitutional Appears: In Acute Distress (mild), Cachectic, Chronically Ill - Head Exam Head Exam: NORMAL INSPECTION - Eye Exam Eye Exam: Normal appearance - ENT Exam Additional comments: face mask - Neck Exam Neck Exam: Normal Inspection - Respiratory Exam Respiratory Exam: Decreased Breath Sounds, Rales - Cardiovascular Exam Cardiovascular Exam: Tachycardia, REGULAR RHYTHM - GI/Abdominal Exam GI & Abdominal Exam: Distended, Soft - Extremities Exam Extremities Exam: Normal Inspection - Skin Additional comments: chronic skin changes Assessment and Plan (1) ESRD (end stage renal disease) on dialysis Status: Acute (2) Respiratory failure Status: Acute (3) Anemia Status: Acute (4) Atrial fibrillation Status: Acute (5) Chronic pain Status: Acute (6) ESRD on hemodialysis Status: Acute (7) Fibrosing dermatitis Status: Acute - Assessment and Plan (Free Text) Assessment: hd tts rest per icu team poor prognosis
[2016-09-08] MEDS: Albuterol-Ipratrop 3 mg / 0.5 (3 ml) UD INH SCH ×7 (00:11→23:26)
--- NOTE | 2016-09-08 02:03 | CP.PCM.CON ---
History of Present Illness - History of Present Illness History of Present Illness: 66 year old female with a history of afib, COPD, scleroderma, ESRD, recently discharged from [facility], admitted with hypoxic respiratory failure, with pancytopenia, coagulopathy. I am unable to obtain history from the patient due to shortness of breath. Past medial, surgical, family, social history cannot be obtained from the patient. Allergies: Per documentation vancomycin, budesonide, formoterol. Review of systems cannot be obtained from the patient. Past Patient History - Infectious Disease Hx of Infectious Diseases: None - Tetanus Immunizations Tetanus Immunization: Unknown - Past Medical History & Family History Past Medical History?: Yes - Past Social History Smoking Status: Never Smoked Chewing Tobacco Use: No Cigar Use: No Alcohol: None Home Situation {Lives}: With Family - CARDIAC Hx Atrial Fibrillation: Yes Hx Cardia Arrhythmia: Yes Hx Congestive Heart Failure: (CAD, A-fib) Hx Hypercholesterolemia: No Hx Hypertension: Yes Hx Pacemaker: Yes Hx Peripheral Edema: Yes - PULMONARY Hx Chronic Obstructive Pulmonary Disease (COPD): No - NEUROLOGICAL Hx Migraine: Yes - HEENT Hx HEENT Problems: Yes Hx Glaucoma: Yes (rt eye) - RENAL Hx Chronic Kidney Disease: Yes - ENDOCRINE/METABOLIC Hx Endocrine Disorders: No - HEMATOLOGICAL/ONCOLOGICAL Hx Anemia: Yes - INTEGUMENTARY Hx Dermatological Problems: Yes (nephrogenic sclerosis,Scleroderma) Other/Comment: SCLERODERMA - MUSCULOSKELETAL/RHEUMATOLOGICAL Hx Arthritis: Yes Hx Osteoporosis: Yes Hx Rheumatoid Arthritis: No - GASTROINTESTINAL Hx Pancreatitis: Yes - GENITOURINARY/GYNECOLOGICAL Hx Sexually Transmitted Disorders: No - PSYCHIATRIC Hx Depression: Yes Hx Substance Use: No - SURGICAL HISTORY Hx Cholecystectomy: Yes Other/Comment: AV Shunt for dialysis ; PPM; Kidney transplant failure - ANESTHESIA Hx Anesthesia: Yes Hx Anesthesia Reactions: No Hx Malignant Hyperthermia: No Meds Allergies/Adverse Reactions: Allergies Allergy/AdvReac Type Severity Reaction Status Date / Time vancomycin Allergy Severe ITCHING Verified 05/10/16 06:40 budesonide [From Symbicort] Allergy ITCHING Verified 08/31/16 22:56 formoterol [From Symbicort] Allergy ITCHING Verified 08/31/16 22:56 - Medications Medications: Current Medications Acetaminophen (Tylenol 650mg/20.3ml Solution Ud) 650 mg PO Q4 PRN PRN Reason: Headache Last Admin: 09/07/16 10:25 Dose: 650 mg Albuterol/Ipratropium (Duoneb 3 Mg/0.5 Mg (3 Ml) Ud) 3 ml INH RQ4 [facility] Last Admin: 09/08/16 00:11 Dose: 3 ml Amiodarone HCl (Cordarone) 200 mg PO DAILY [facility] Last Admin: 09/07/16 10:25 Dose: 200 mg Clopidogrel Bisulfate (Plavix) 75 mg PO DAILY [facility] Last Admin: 09/07/16 10:26 Dose: Not Given Docusate Sodium (Colace) 100 mg PO BID PRN PRN Reason: Constipation Last Admin: 09/04/16 11:08 Dose: 100 mg Famotidine (Pepcid) 20 mg PO DAILY [facility] Last Admin: 09/07/16 10:25 Dose: 20 mg Folic Acid (Folic Acid) 1 mg NG DAILY [facility] Last Admin: 09/07/16 10:25 Dose: 1 mg Heparin Sodium (Porcine) (Heparin) 5,000 units SC Q12 [facility] Last Admin: 09/05/16 09:00 Dose: 5,000 units Doxycycline Hyclate 100 mg/ (Sodium Chloride) 100 mls @ 100 mls/hr IVPB Q12H [facility] Last Admin: 09/07/16 22:33 Dose: 100 mls/hr Piperacillin Sod/Tazobactam Sod (Zosyn 2.25 Gm Iv Premix) 2.25 gm in 50 mls @ 100 mls/hr IVPB Q6H [facility] Last Admin: 09/07/16 22:04 Dose: 100 mls/hr Metoprolol Tartrate (Lopressor) 25 mg PO BID [facility] Last Admin: 09/07/16 17:47 Dose: Not Given Midodrine (Proamatine) 10 mg PO TID [facility] Last Admin: 09/07/16 17:47 Dose: 10 mg Potassium Phos/Sodium Phos (Neutra-Phos) 1 pkt PO Q12H [facility] Last Admin: 09/07/16 22:03 Dose: 1 pkt Results - Vital Signs Recent Vital Signs: Last Vital Signs Temp 97.8 F 09/08/16 00:00 Pulse 68 09/08/16 01:07 Resp 22 09/08/16 01:07 BP 118/50 L 09/08/16 01:07 Pulse Ox 100 09/08/16 01:07 - Labs Result Diagrams: 09/07/16 10:42 09/07/16 06:27 Labs: Laboratory Results - last 24 hr 09/05/16 09/07/16 09/07/16 11:52 06:27 06:27 WBC 2.8 L RBC 2.44 L Hgb 8.2 L Hct 26.7 L MCV 109.4 H MCH 33.6 H MCHC 30.7 L RDW 18.3 H Plt Count 54 L D MPV 11.2 Neut % (Auto) 71.6 Lymph % (Auto) 13.7 L Wilkin % (Auto) 10.9 H Eos % (Auto) 2.5 Baso % (Auto) 1.3 Neut # 2.0 Lymph # 0.4 L Wilkin # 0.3 Eos # 0.1 Baso # 0.0 Neutrophils % (Manual) Lymphocytes % (Manual) Monocytes % (Manual) Eosinophils % (Manual) Platelet Estimate Plt Clumps, EDTA Anisocytosis (manual) Macrocytosis (manual) PT INR APTT Fibrinogen Puncture Site pCO2 pO2 HCO3 ABG pH ABG Total CO2 ABG O2 Saturation ABG Base Excess Gumaro Test ABG Potassium A-a O2 Difference Respiratory Index Glucose Lactate FiO2 Sodium 136 Potassium 4.7 Chloride 92 L Carbon Dioxide 25 Anion Gap 24 H BUN 52 H Creatinine 2.7 H Est GFR ( Amer) 21 Est GFR (Non-Af Amer) 18 Random Glucose 107 H Calcium 7.9 L Phosphorus 2.5 Magnesium 2.0 Total Bilirubin 1.0 AST 21 ALT 11 Alkaline Phosphatase 124 Total Protein 8.4 H Albumin 4.0 Globulin 4.3 H Albumin/Globulin Ratio 0.9 L Arterial Blood Potassium Mycoplasma pneumon IgG <=0.90 Mycoplasma pneumon IgM 112 Blood Type Antibody Screen Antibody Identification 09/07/16 09/07/16 09/07/16 10:42 13:31 15:06 WBC 3.3 L RBC 2.50 L Hgb 8.5 L Hct 27.0 L MCV 108.2 H MCH 33.9 H MCHC 31.3 L RDW 17.9 H Plt Count 64 L MPV 10.6 Neut % (Auto) 72.6 Lymph % (Auto) 13.4 L Wilkin % (Auto) 11.4 H Eos % (Auto) 2.2 Baso % (Auto) 0.4 Neut # 2.4 Lymph # 0.4 L Wilkin # 0.4 Eos # 0.1 Baso # 0.0 Neutrophils % (Manual) 78 H Lymphocytes % (Manual) 8 L Monocytes % (Manual) 12 H Eosinophils % (Manual) 2 Platelet Estimate Decreased L Plt Clumps, EDTA Present Anisocytosis (manual) Slight Macrocytosis (manual) Moderate PT 13.2 H INR 1.2 APTT 44 H Fibrinogen 346 Puncture Site Lb pCO2 46 H pO2 76 L HCO3 28.4 H ABG pH 7.42 ABG Total CO2 31.2 H ABG O2 Saturation 98.0 ABG Base Excess 4.5 H Gumaro Test Na ABG Potassium 3.4 L A-a O2 Difference 152.0 Respiratory Index 2.0 Glucose 88 Lactate 0.9 FiO2 40.0 Sodium 138.0 Potassium Chloride 103.0 Carbon Dioxide Anion Gap BUN Creatinine Est GFR ( Amer) Est GFR (Non-Af Amer) Random Glucose Calcium Phosphorus Magnesium Total Bilirubin AST ALT Alkaline Phosphatase Total Protein Albumin Globulin Albumin/Globulin Ratio Arterial Blood Potassium 3.4 L Mycoplasma pneumon IgG Mycoplasma pneumon IgM Blood Type Antibody Screen Antibody Identification 09/07/16 15:06 WBC RBC Hgb Hct MCV MCH MCHC RDW Plt Count MPV Neut % (Auto) Lymph % (Auto) Wilkin % (Auto) Eos % (Auto) Baso % (Auto) Neut # Lymph # Wilkin # Eos # Baso # Neutrophils % (Manual) Lymphocytes % (Manual) Monocytes % (Manual) Eosinophils % (Manual) Platelet Estimate Plt Clumps, EDTA Anisocytosis (manual) Macrocytosis (manual) PT INR APTT Fibrinogen Puncture Site pCO2 pO2 HCO3 ABG pH ABG Total CO2 ABG O2 Saturation ABG Base Excess Gumaro Test ABG Potassium A-a O2 Difference Respiratory Index Glucose Lactate FiO2 Sodium Potassium Chloride Carbon Dioxide Anion Gap BUN Creatinine Est GFR ( Amer) Est GFR (Non-Af Amer) Random Glucose Calcium Phosphorus Magnesium Total Bilirubin AST ALT Alkaline Phosphatase Total Protein Albumin Globulin Albumin/Globulin Ratio Arterial Blood Potassium Mycoplasma pneumon IgG Mycoplasma pneumon IgM Blood Type O POSITIVE Antibody Screen Positive Antibody Identification Anti E Assessment & Plan (1) Pancytopenia Assessment and Plan: no neutropenia will check ferritin, retic count, b12, folate to further characterize anemia element of CKD will check HIV, hepatitis panel, HIT panel, and review peripheral smear Status: Acute (2) Coagulopathy Assessment and Plan: nutritional component rule out DIC Thank you for this interesting consult. Status: Acute
[2016-09-08] MEDS: Piperacill/Tazo 2.25gm in Dex 2.25 GM/50 ML BAG IVPB SCH ×4 (04:36→22:01)
[2016-09-08] MEDS: Acetaminophen 650mg/20.3ml solution UD PO PRN (06:07)
[2016-09-08 07:47] LABS: INR 1.1; PROTHROMBIN TIME 13.1 SECONDS (9.7-12.2)
[2016-09-08] MEDS ORDERED: Oxycodone/Acetaminophen 5/325 mg Tab ONE (09:36)
[2016-09-08] MEDS: Oxycodone/Acetaminophen 5/325 mg Tab PO PRN ×3 (09:36→22:47)
[2016-09-08] MEDS: Potassium & Sodium Phosphate PO SCH ×2 (09:46→22:00)
[2016-09-08 10:28] LABS: ALBUMIN 4.2 g/dL (3.5-5.0)
[2016-09-08 10:31] LABS: ALB/GLOB RATIO 0.9 (1.0-2.1); AST/SGOT 28 U/L (14-36); BLOOD UREA NITROGEN 34 mg/dL (7-17); GFR AFRICAN-AMERICAN 29; GFR NON-AFRICAN AMERICAN 24
[2016-09-08 10:32] LABS: ALT/SGPT 12 U/L (9-52); CALCIUM 8.2 mg/dl (8.6-10.4)
--- NOTE | 2016-09-08 10:44 | CP.PCM.CON ---
Past Patient History - Infectious Disease Hx of Infectious Diseases: None - Tetanus Immunizations Tetanus Immunization: Unknown - Past Medical History & Family History Past Medical History?: Yes - Past Social History Smoking Status: Never Smoked Chewing Tobacco Use: No Cigar Use: No Alcohol: None Home Situation {Lives}: With Family - CARDIAC Hx Atrial Fibrillation: Yes Hx Cardia Arrhythmia: Yes Hx Congestive Heart Failure: (CAD, A-fib) Hx Hypercholesterolemia: No Hx Hypertension: Yes Hx Pacemaker: Yes Hx Peripheral Edema: Yes - PULMONARY Hx Chronic Obstructive Pulmonary Disease (COPD): No - NEUROLOGICAL Hx Migraine: Yes - HEENT Hx HEENT Problems: Yes Hx Glaucoma: Yes (rt eye) - RENAL Hx Chronic Kidney Disease: Yes - ENDOCRINE/METABOLIC Hx Endocrine Disorders: No - HEMATOLOGICAL/ONCOLOGICAL Hx Anemia: Yes - INTEGUMENTARY Hx Dermatological Problems: Yes (nephrogenic sclerosis,Scleroderma) Other/Comment: SCLERODERMA - MUSCULOSKELETAL/RHEUMATOLOGICAL Hx Arthritis: Yes Hx Osteoporosis: Yes Hx Rheumatoid Arthritis: No - GASTROINTESTINAL Hx Pancreatitis: Yes - GENITOURINARY/GYNECOLOGICAL Hx Sexually Transmitted Disorders: No - PSYCHIATRIC Hx Depression: Yes Hx Substance Use: No - SURGICAL HISTORY Hx Cholecystectomy: Yes Other/Comment: AV Shunt for dialysis ; PPM; Kidney transplant failure - ANESTHESIA Hx Anesthesia: Yes Hx Anesthesia Reactions: No Hx Malignant Hyperthermia: No Meds Allergies/Adverse Reactions: Allergies Allergy/AdvReac Type Severity Reaction Status Date / Time vancomycin Allergy Severe ITCHING Verified 05/10/16 06:40 budesonide [From Symbicort] Allergy ITCHING Verified 08/31/16 22:56 formoterol [From Symbicort] Allergy ITCHING Verified 08/31/16 22:56 - Medications Medications: Current Medications Acetaminophen (Tylenol 650mg/20.3ml Solution Ud) 650 mg PO Q4 PRN PRN Reason: Headache Last Admin: 09/08/16 06:07 Dose: 650 mg Albuterol/Ipratropium (Duoneb 3 Mg/0.5 Mg (3 Ml) Ud) 3 ml INH RQ4 [facility] Last Admin: 09/08/16 07:58 Dose: 3 ml Amiodarone HCl (Cordarone) 200 mg PO DAILY [facility] Last Admin: 09/08/16 09:40 Dose: 200 mg Clopidogrel Bisulfate (Plavix) 75 mg PO DAILY [facility] Last Admin: 09/07/16 10:26 Dose: Not Given Docusate Sodium (Colace) 100 mg PO BID PRN PRN Reason: Constipation Last Admin: 09/04/16 11:08 Dose: 100 mg Famotidine (Pepcid) 20 mg PO DAILY [facility] Last Admin: 09/08/16 09:40 Dose: 20 mg Folic Acid (Folic Acid) 1 mg NG DAILY [facility] Last Admin: 09/08/16 09:40 Dose: 1 mg Heparin Sodium (Porcine) (Heparin) 5,000 units SC Q12 [facility] Last Admin: 09/05/16 09:00 Dose: 5,000 units Doxycycline Hyclate 100 mg/ (Sodium Chloride) 100 mls @ 100 mls/hr IVPB Q12H [facility] Last Admin: 09/07/16 22:33 Dose: 100 mls/hr Piperacillin Sod/Tazobactam Sod (Zosyn 2.25 Gm Iv Premix) 2.25 gm in 50 mls @ 100 mls/hr IVPB Q6H [facility] Last Admin: 09/08/16 04:36 Dose: 100 mls/hr Metoprolol Tartrate (Lopressor) 25 mg PO BID [facility] Last Admin: 09/07/16 17:47 Dose: Not Given Midodrine (Proamatine) 10 mg PO TID [facility] Last Admin: 09/08/16 09:46 Dose: 10 mg Oxycodone/Acetaminophen (Percocet 5/325 Mg Tab) 1 tab PO Q4H PRN PRN Reason: Pain, moderate (4-7) Stop: 09/11/16 08:41 Last Admin: 09/08/16 09:36 Dose: 1 tab Potassium Phos/Sodium Phos (Neutra-Phos) 1 pkt PO Q12H [facility] Last Admin: 09/08/16 09:46 Dose: 1 pkt Results - Vital Signs Recent Vital Signs: Last Vital Signs Temp 97.5 F L 09/08/16 06:55 Pulse 70 09/08/16 10:08 Resp 24 09/08/16 10:08 BP 113/72 09/08/16 08:07 Pulse Ox 100 09/08/16 10:08 - Labs Result Diagrams: 09/07/16 10:42 09/08/16 10:08 Labs: Laboratory Results - last 24 hr 09/05/16 09/07/16 09/07/16 11:52 10:42 13:31 WBC 3.3 L RBC 2.50 L Hgb 8.5 L Hct 27.0 L MCV 108.2 H MCH 33.9 H MCHC 31.3 L RDW 17.9 H Plt Count 64 L MPV 10.6 Neut % (Auto) 72.6 Lymph % (Auto) 13.4 L Barron % (Auto) 11.4 H Eos % (Auto) 2.2 Baso % (Auto) 0.4 Neut # 2.4 Lymph # 0.4 L Barron # 0.4 Eos # 0.1 Baso # 0.0 Neutrophils % (Manual) 78 H Lymphocytes % (Manual) 8 L Monocytes % (Manual) 12 H Eosinophils % (Manual) 2 Platelet Estimate Decreased L Plt Clumps, EDTA Present Anisocytosis (manual) Slight Macrocytosis (manual) Moderate Retic Count PT INR APTT Fibrinogen Puncture Site Lb pCO2 46 H pO2 76 L HCO3 28.4 H ABG pH 7.42 ABG Total CO2 31.2 H ABG O2 Saturation 98.0 ABG Base Excess 4.5 H Gumaro Test Na ABG Potassium 3.4 L A-a O2 Difference 152.0 Respiratory Index 2.0 Sodium 138.0 Chloride 103.0 Glucose 88 Lactate 0.9 FiO2 40.0 Potassium Carbon Dioxide Anion Gap BUN Creatinine Est GFR ( Amer) Est GFR (Non-Af Amer) Random Glucose Calcium Phosphorus Magnesium Total Bilirubin AST ALT Alkaline Phosphatase Total Protein Albumin Globulin Albumin/Globulin Ratio Arterial Blood Potassium 3.4 L Mycoplasma pneumon IgG <=0.90 Mycoplasma pneumon IgM 112 Blood Type Antibody Screen Antibody Identification 09/07/16 09/07/16 09/08/16 15:06 15:06 07:28 WBC RBC Hgb Hct MCV MCH MCHC RDW Plt Count MPV Neut % (Auto) Lymph % (Auto) Barron % (Auto) Eos % (Auto) Baso % (Auto) Neut # Lymph # Barron # Eos # Baso # Neutrophils % (Manual) Lymphocytes % (Manual) Monocytes % (Manual) Eosinophils % (Manual) Platelet Estimate Plt Clumps, EDTA Anisocytosis (manual) Macrocytosis (manual) Retic Count PT 13.2 H 13.1 H INR 1.2 1.1 APTT 44 H 36 H D Fibrinogen 346 Puncture Site pCO2 pO2 HCO3 ABG pH ABG Total CO2 ABG O2 Saturation ABG Base Excess Gumaro Test ABG Potassium A-a O2 Difference Respiratory Index Sodium Chloride Glucose Lactate FiO2 Potassium Carbon Dioxide Anion Gap BUN Creatinine Est GFR ( Amer) Est GFR (Non-Af Amer) Random Glucose Calcium Phosphorus Magnesium Total Bilirubin AST ALT Alkaline Phosphatase Total Protein Albumin Globulin Albumin/Globulin Ratio Arterial Blood Potassium Mycoplasma pneumon IgG Mycoplasma pneumon IgM Blood Type O POSITIVE Antibody Screen Positive Antibody Identification Anti E 09/08/16 09/08/16 10:08 10:08 WBC RBC Hgb Hct MCV MCH MCHC RDW Plt Count MPV Neut % (Auto) Lymph % (Auto) Barron % (Auto) Eos % (Auto) Baso % (Auto) Neut # Lymph # Barron # Eos # Baso # Neutrophils % (Manual) Lymphocytes % (Manual) Monocytes % (Manual) Eosinophils % (Manual) Platelet Estimate Plt Clumps, EDTA Anisocytosis (manual) Macrocytosis (manual) Retic Count 1.8 H PT INR APTT Fibrinogen Puncture Site pCO2 pO2 HCO3 ABG pH ABG Total CO2 ABG O2 Saturation ABG Base Excess Gumaro Test ABG Potassium A-a O2 Difference Respiratory Index Sodium 137 Chloride 95 L Glucose Lactate FiO2 Potassium 4.4 Carbon Dioxide 25 Anion Gap 21 H BUN 34 H Creatinine 2.1 H Est GFR ( Amer) 29 Est GFR (Non-Af Amer) 24 Random Glucose 80 Calcium 8.2 L Phosphorus 3.4 Magnesium 2.0 Total Bilirubin 1.2 AST 28 ALT 12 Alkaline Phosphatase 114 Total Protein 9.1 H Albumin 4.2 Globulin 4.8 H Albumin/Globulin Ratio 0.9 L Arterial Blood Potassium Mycoplasma pneumon IgG Mycoplasma pneumon IgM Blood Type Antibody Screen Antibody Identification
[2016-09-08 10:53] LABS: EOS # 0.1 K/uL (0.0-0.7); EOS % 1.5 % (0.0-4.0); HEMOGLOBIN 8.2 g/dL (11.0-16.0); LYMPH # 0.3 K/uL (1.0-4.3); LYMPH % 9.4 % (20.0-40.0); MEAN CELL VOLUME 108.1 fL (81.0-99.0); MEAN CORPUSCULAR HEMOGLOBIN 33.7 pg (27.0-31.0); MEAN CORPUSCULAR HGB CONC 31.2 g/dL (33.0-37.0); MEAN PLATELET VOLUME 10.2 fL (7.2-11.7); MONO # 0.4 K/uL (0.0-0.8); MONO % 11.3 % (0.0-10.0); NEUT # 2.6 K/uL (1.8-7.0); NEUT % 76.8 % (50.0-75.0); NRBC % 0.1 % (0.0-2.0); RBC 2.45 Mil/uL (3.80-5.20); RED CELL DISTRIBUTION WIDTH 17.9 % (11.5-14.5); WHITE BLOOD COUNT 3.4 K/uL (4.8-10.8)
[2016-09-08 11:01] LABS: HEPATITIS B SURFACE AG NEGATIVE (NEGATIVE)
[2016-09-08 11:06] LABS: HEPATITIS A IGM NEGATIVE (NEGATIVE); HEPATITIS B CORE AB NEGATIVE (NEGATIVE); PLATELET COUNT 85 K/uL (130-400)
[2016-09-08 11:07] LABS: PLATELET COUNT MANUAL 86 K/uL (130-400)
[2016-09-08 11:18] LABS: HEPATITIS C ANTIBODY NEGATIVE (NEGATIVE)
[2016-09-08 11:36] LABS: ANISOCYTOSIS SLIGHT; BANDS 6 % (0-2); BASOPHIL 1 % (0-2); EOSINOPHIL 3 % (0-4); LYMPHOCYTE 13 % (20-40); MONOCYTE 16 % (0-10); NEUTROPHIL 61 % (50-75); PLATELET ESTIMATE DECREASED (NORMAL); TOTAL CELLS COUNTED 100
[2016-09-08 11:39] LABS: FOLATE > 20.0 ng/mL
--- NOTE | 2016-09-08 13:11 | CP.CCUPN ---
<Christina Clark - Last Filed: 09/08/16 18:08> CCU Subjective - Physician Review Subjective (Free Text): 09/08/16 18:08 Patient seen and examined at beside Patient afebrile and had no acute events overnight as per nursing Patient was on ventimask overnight and was changed to NC 5L today- tolerating well Patient was OOB to chair today and tolerated Had HD today as per //Sun schedule Patient complaining of diffuse pain throughout body VSS Patient due for IR thoracentesis on Monday 09/11 CCU Objective - Vital Signs / Intake & Output Vital Signs (Last 4 hours): Vital Signs Pulse Resp BP Pulse Ox 09/08/16 12:07 66 22 113/57 L 100 09/08/16 12:00 64 20 100 09/08/16 11:07 71 25 H 118/59 L 09/08/16 11:00 66 20 100 09/08/16 10:08 70 24 100 09/08/16 10:00 117/61 Intake and Output (Last 8hrs): Intake & Output 09/07/16 09/08/16 09/08/16 22:59 06:59 14:59 Intake Total 225 50 10 Output Total 0 Balance 225 50 10 Intake: Intake, IV Amount 0 10 Left External Jugular 0 10 Oral 225 50 0 Output: Stool 0 Other: # Bowel Movements 0 - Physical Exam Head: Positive for: Atraumatic, Normocephalic Pupils: Positive for: PERRL Extroacular Muscles: Positive for: EOMI Conjunctiva: Positive for: Normal. Negative for: Injected, Icteric Mouth: Positive for: Dry Pharnyx: Positive for: Normal Neck: Negative for: JVD, Lymphadenopathy Respiratory/Chest: Positive for: Decreased Breath Sounds, Other (tolerating NC 5L). Negative for: Wheezes, Rales, Rhonchi Cardiovascular: Positive for: Normal S1, S2, Irregular Rhythm. Negative for: Murmurs Abdomen: Positive for: Normal Bowel Sounds. Negative for: Tenderness, Distention Upper Extremity: Positive for: Normal Inspection. Negative for: Cyanosis, Edema Lower Extremity: Positive for: Normal Inspection. Negative for: Edema Neurological: Positive for: Motor Func Grossly Intact Skin: Positive for: Warm, Dry, Normal Color Psychiatric: Positive for: Alert - Medications Active Medications: Active Medications Generic Name Dose Route Start Last Admin Trade Name Freq PRN Reason Stop Dose Admin Acetaminophen 650 mg 09/04/16 20:01 09/08/16 06:07 Tylenol 650mg/20.3ml Solution Ud PO 650 mg Q4 PRN Administration Headache Albuterol/Ipratropium 3 ml 09/01/16 04:00 09/08/16 11:29 Duoneb 3 Mg/0.5 Mg (3 Ml) Ud INH 3 ml RQ4 NEVAEH Administration Amiodarone HCl 200 mg 09/01/16 10:00 09/08/16 09:40 Cordarone PO 200 mg DAILY NEVAEH Administration Clopidogrel Bisulfate 75 mg 09/01/16 10:00 09/07/16 10:26 Plavix PO Not Given DAILY [facility] Docusate Sodium 100 mg 09/01/16 01:47 09/04/16 11:08 Colace PO 100 mg BID PRN Administration Constipation Famotidine 20 mg 09/01/16 10:00 09/08/16 09:40 Pepcid PO 20 mg DAILY NEVAEH Administration Folic Acid 1 mg 09/01/16 10:00 09/08/16 09:40 Folic Acid NG 1 mg DAILY NEVAEH Administration Heparin Sodium (Porcine) 5,000 units 09/02/16 22:00 09/05/16 09:00 Heparin SC 5,000 units Q12 NEVAEH Administration Doxycycline Hyclate 100 mg/ 100 mls @ 100 mls/hr 09/02/16 23:30 09/08/16 11: 58 Sodium Chloride IVPB 100 mls/hr Q12H NEVAEH Administration Piperacillin Sod/Tazobactam Sod 2.25 gm in 50 mls @ 100 mls/hr 09/05/16 11:00 09/08/16 10:41 Zosyn 2.25 Gm Iv Premix IVPB 100 mls/hr Q6H NEVAEH Administration Metoprolol Tartrate 25 mg 09/01/16 10:00 09/08/16 10:00 Lopressor PO Not Given BID [facility] Midodrine 10 mg 09/04/16 14:00 09/08/16 09:46 Proamatine PO 10 mg TID NEVAEH Administration Oxycodone/Acetaminophen 1 tab 09/08/16 08:40 09/08/16 09:36 Percocet 5/325 Mg Tab PO 09/11/16 08:41 1 tab Q4H PRN Administration Pain, moderate (4-7) Potassium Phos/Sodium Phos 1 pkt 09/06/16 10:00 09/08/16 09:46 Neutra-Phos PO 1 pkt Q12H NEVAEH Administration - Patient Studies Lab Studies: Microbiology Studies 09/05/16 08:05 Legionella Culture - Preliminary Other: Please Indicate 09/02/16 13:30 Blood Culture - Final Blood-Venous NO GROWTH AFTER 5 DAYS Gram Stain - Final TEST NOT PERFORMED 09/02/16 13:30 Blood Culture - Final Blood-Venous NO GROWTH AFTER 5 DAYS Gram Stain - Final TEST NOT PERFORMED Lab Studies 09/08/16 09/08/16 09/08/16 Range/Units 10:08 10:08 10:08 WBC 3.4 L (4.8-10.8) K/uL RBC 2.45 L (3.80-5.20) Mil/uL Hgb 8.2 L (11.0-16.0) g/dL Hct 26.5 L (34.0-47.0) % MCV 108.1 H (81.0-99.0) fL MCH 33.7 H (27.0-31.0) pg MCHC 31.2 L (33.0-37.0) g/dL RDW 17.9 H (11.5-14.5) % Plt Count 85 L D (130-400) K/uL Manual Plt Count 86 L (130-400) K/uL MPV 10.2 (7.2-11.7) fL Neut % (Auto) 76.8 H (50.0-75.0) % Lymph % (Auto) 9.4 L (20.0-40.0) % [place] % (Auto) 11.3 H (0.0-10.0) % Eos % (Auto) 1.5 (0.0-4.0) % Baso % (Auto) 1.0 (0.0-2.0) % Neut # 2.6 (1.8-7.0) K/uL Lymph # 0.3 L (1.0-4.3) K/uL [place] # 0.4 (0.0-0.8) K/uL Eos # 0.1 (0.0-0.7) K/uL Baso # 0.0 (0.0-0.2) K/uL Neutrophils % (Manual) 61 (50-75) % Band Neutrophils % 6 H (0-2) % Lymphocytes % (Manual) 13 L (20-40) % Monocytes % (Manual) 16 H (0-10) % Eosinophils % (Manual) 3 (0-4) % Basophils % (Manual) 1 (0-2) % Platelet Estimate Decreased L (NORMAL) Plt Clumps, EDTA Anisocytosis (manual) Slight Macrocytosis (manual) Moderate Retic Count 1.8 H (0.5-1.5) % PT (9.7-12.2) SECONDS INR APTT (21-34) SECONDS Fibrinogen (200-400) mg/dL Puncture Site pCO2 (35-45) mm/Hg pO2 (80-100) mm/Hg HCO3 (21-28) mmol/L ABG pH (7.35-7.45) ABG Total CO2 (22-28) mmol/L ABG O2 Saturation (95-98) % ABG Base Excess (-2.0-3.0) mmol/L Gumaro Test ABG Potassium (3.6-5.2) mmol/L A-a O2 Difference mm/Hg Respiratory Index Sodium (132-148) mmol/l Chloride (98-107) mmol/L Glucose (65-105) mg/dl Lactate (0.7-2.1) mmol/L FiO2 % Potassium (3.6-5.2) mmol/L Carbon Dioxide (22-30) mmol/L Anion Gap (10-20) BUN (7-17) mg/dL Creatinine (0.7-1.2) MG/DL Est GFR ( Amer) Est GFR (Non-Af Amer) Random Glucose (65-105) mg/dL Calcium (8.6-10.4) mg/dl Phosphorus (2.5-4.5) mg/dL Magnesium (1.6-2.3) mg/dL Ferritin ng/mL Total Bilirubin (0.2-1.3) mg/dL AST (14-36) U/L ALT (9-52) U/L Alkaline Phosphatase (38-126) U/L Total Protein (6.3-8.3) g/dL Albumin (3.5-5.0) g/dL Globulin (2.2-3.9) gm/dL Albumin/Globulin Ratio (1.0-2.1) Vitamin B12 (239-931) pg/mL Folate ng/mL Arterial Blood Potassium (3.6-5.2) mmol/L Hepatitis A IgM Ab Negative (NEGATIVE) Hep Bs Antigen Negative (NEGATIVE) Hep B Core IgM Ab Negative (NEGATIVE) Hepatitis C Antibody Negative (NEGATIVE) HIV 1&2 Antibody Screen Negative (NEGATIVE) Mycoplasma pneumon IgG (<=0.90) Mycoplasma pneumon IgM (<770) U/mL Blood Type Antibody Screen Antibody Identification 09/08/16 09/08/16 09/07/16 Range/Units 10:08 07:28 15:06 WBC (4.8-10.8) K/uL RBC (3.80-5.20) Mil/uL Hgb (11.0-16.0) g/dL Hct (34.0-47.0) % MCV (81.0-99.0) fL MCH (27.0-31.0) pg MCHC (33.0-37.0) g/dL RDW (11.5-14.5) % Plt Count (130-400) K/uL Manual Plt Count (130-400) K/uL MPV (7.2-11.7) fL Neut % (Auto) (50.0-75.0) % Lymph % (Auto) (20.0-40.0) % [place] % (Auto) (0.0-10.0) % Eos % (Auto) (0.0-4.0) % Baso % (Auto) (0.0-2.0) % Neut # (1.8-7.0) K/uL Lymph # (1.0-4.3) K/uL [place] # (0.0-0.8) K/uL Eos # (0.0-0.7) K/uL Baso # (0.0-0.2) K/uL Neutrophils % (Manual) (50-75) % Band Neutrophils % (0-2) % Lymphocytes % (Manual) (20-40) % Monocytes % (Manual) (0-10) % Eosinophils % (Manual) (0-4) % Basophils % (Manual) (0-2) % Platelet Estimate (NORMAL) Plt Clumps, EDTA Anisocytosis (manual) Macrocytosis (manual) Retic Count (0.5-1.5) % PT 13.1 H (9.7-12.2) SECONDS INR 1.1 APTT 36 H D (21-34) SECONDS Fibrinogen (200-400) mg/dL Puncture Site pCO2 (35-45) mm/Hg pO2 (80-100) mm/Hg HCO3 (21-28) mmol/L ABG pH (7.35-7.45) ABG Total CO2 (22-28) mmol/L ABG O2 Saturation (95-98) % ABG Base Excess (-2.0-3.0) mmol/L Gumaro Test ABG Potassium (3.6-5.2) mmol/L A-a O2 Difference mm/Hg Respiratory Index Sodium 137 (132-148) mmol/l Chloride 95 L (98-107) mmol/L Glucose (65-105) mg/dl Lactate (0.7-2.1) mmol/L FiO2 % Potassium 4.4 (3.6-5.2) mmol/L Carbon Dioxide 25 (22-30) mmol/L Anion Gap 21 H (10-20) BUN 34 H (7-17) mg/dL Creatinine 2.1 H (0.7-1.2) MG/DL Est GFR ( Amer) 29 Est GFR (Non-Af Amer) 24 Random Glucose 80 (65-105) mg/dL Calcium 8.2 L (8.6-10.4) mg/dl Phosphorus 3.4 (2.5-4.5) mg/dL Magnesium 2.0 (1.6-2.3) mg/dL Ferritin 893.0 ng/mL Total Bilirubin 1.2 (0.2-1.3) mg/dL AST 28 (14-36) U/L ALT 12 (9-52) U/L Alkaline Phosphatase 114 (38-126) U/L Total Protein 9.1 H (6.3-8.3) g/dL Albumin 4.2 (3.5-5.0) g/dL Globulin 4.8 H (2.2-3.9) gm/dL Albumin/Globulin Ratio 0.9 L (1.0-2.1) Vitamin B12 779 (239-931) pg/mL Folate > 20.0 ng/mL Arterial Blood Potassium (3.6-5.2) mmol/L Hepatitis A IgM Ab (NEGATIVE) Hep Bs Antigen (NEGATIVE) Hep B Core IgM Ab (NEGATIVE) Hepatitis C Antibody (NEGATIVE) HIV 1&2 Antibody Screen (NEGATIVE) Mycoplasma pneumon IgG (<=0.90) Mycoplasma pneumon IgM (<770) U/mL Blood Type O POSITIVE Antibody Screen Positive Antibody Identification Anti E 09/07/16 09/07/16 09/07/16 Range/Units 15:06 13:31 10:42 WBC (4.8-10.8) K/uL RBC (3.80-5.20) Mil/uL Hgb (11.0-16.0) g/dL Hct (34.0-47.0) % MCV (81.0-99.0) fL MCH (27.0-31.0) pg MCHC (33.0-37.0) g/dL RDW (11.5-14.5) % Plt Count (130-400) K/uL Manual Plt Count (130-400) K/uL MPV (7.2-11.7) fL Neut % (Auto) (50.0-75.0) % Lymph % (Auto) (20.0-40.0) % [place] % (Auto) (0.0-10.0) % Eos % (Auto) (0.0-4.0) % Baso % (Auto) (0.0-2.0) % Neut # (1.8-7.0) K/uL Lymph # (1.0-4.3) K/uL [place] # (0.0-0.8) K/uL Eos # (0.0-0.7) K/uL Baso # (0.0-0.2) K/uL Neutrophils % (Manual) 78 H (50-75) % Band Neutrophils % (0-2) % Lymphocytes % (Manual) 8 L (20-40) % Monocytes % (Manual) 12 H (0-10) % Eosinophils % (Manual) 2 (0-4) % Basophils % (Manual) (0-2) % Platelet Estimate Decreased L (NORMAL) Plt Clumps, EDTA Present Anisocytosis (manual) Slight Macrocytosis (manual) Moderate Retic Count (0.5-1.5) % PT 13.2 H (9.7-12.2) SECONDS INR 1.2 APTT 44 H (21-34) SECONDS Fibrinogen 346 (200-400) mg/dL Puncture Site Lb pCO2 46 H (35-45) mm/Hg pO2 76 L (80-100) mm/Hg HCO3 28.4 H (21-28) mmol/L ABG pH 7.42 (7.35-7.45) ABG Total CO2 31.2 H (22-28) mmol/L ABG O2 Saturation 98.0 (95-98) % ABG Base Excess 4.5 H (-2.0-3.0) mmol/L Gumaro Test Na ABG Potassium 3.4 L (3.6-5.2) mmol/L A-a O2 Difference 152.0 mm/Hg Respiratory Index 2.0 Sodium 138.0 (132-148) mmol/l Chloride 103.0 (98-107) mmol/L Glucose 88 (65-105) mg/dl Lactate 0.9 (0.7-2.1) mmol/L FiO2 40.0 % Potassium (3.6-5.2) mmol/L Carbon Dioxide (22-30) mmol/L Anion Gap (10-20) BUN (7-17) mg/dL Creatinine (0.7-1.2) MG/DL Est GFR ( Amer) Est GFR (Non-Af Amer) Random Glucose (65-105) mg/dL Calcium (8.6-10.4) mg/dl Phosphorus (2.5-4.5) mg/dL Magnesium (1.6-2.3) mg/dL Ferritin ng/mL Total Bilirubin (0.2-1.3) mg/dL AST (14-36) U/L ALT (9-52) U/L Alkaline Phosphatase (38-126) U/L Total Protein (6.3-8.3) g/dL Albumin (3.5-5.0) g/dL Globulin (2.2-3.9) gm/dL Albumin/Globulin Ratio (1.0-2.1) Vitamin B12 (239-931) pg/mL Folate ng/mL Arterial Blood Potassium 3.4 L (3.6-5.2) mmol/L Hepatitis A IgM Ab (NEGATIVE) Hep Bs Antigen (NEGATIVE) Hep B Core IgM Ab (NEGATIVE) Hepatitis C Antibody (NEGATIVE) HIV 1&2 Antibody Screen (NEGATIVE) Mycoplasma pneumon IgG (<=0.90) Mycoplasma pneumon IgM (<770) U/mL Blood Type Antibody Screen Antibody Identification 09/05/16 Range/Units 11:52 WBC (4.8-10.8) K/uL RBC (3.80-5.20) Mil/uL Hgb (11.0-16.0) g/dL Hct (34.0-47.0) % MCV (81.0-99.0) fL MCH (27.0-31.0) pg MCHC (33.0-37.0) g/dL RDW (11.5-14.5) % Plt Count (130-400) K/uL Manual Plt Count (130-400) K/uL MPV (7.2-11.7) fL Neut % (Auto) (50.0-75.0) % Lymph % (Auto) (20.0-40.0) % [place] % (Auto) (0.0-10.0) % Eos % (Auto) (0.0-4.0) % Baso % (Auto) (0.0-2.0) % Neut # (1.8-7.0) K/uL Lymph # (1.0-4.3) K/uL [place] # (0.0-0.8) K/uL Eos # (0.0-0.7) K/uL Baso # (0.0-0.2) K/uL Neutrophils % (Manual) (50-75) % Band Neutrophils % (0-2) % Lymphocytes % (Manual) (20-40) % Monocytes % (Manual) (0-10) % Eosinophils % (Manual) (0-4) % Basophils % (Manual) (0-2) % Platelet Estimate (NORMAL) Plt Clumps, EDTA Anisocytosis (manual) Macrocytosis (manual) Retic Count (0.5-1.5) % PT (9.7-12.2) SECONDS INR APTT (21-34) SECONDS Fibrinogen (200-400) mg/dL Puncture Site pCO2 (35-45) mm/Hg pO2 (80-100) mm/Hg HCO3 (21-28) mmol/L ABG pH (7.35-7.45) ABG Total CO2 (22-28) mmol/L ABG O2 Saturation (95-98) % ABG Base Excess (-2.0-3.0) mmol/L Gumaro Test ABG Potassium (3.6-5.2) mmol/L A-a O2 Difference mm/Hg Respiratory Index Sodium (132-148) mmol/l Chloride (98-107) mmol/L Glucose (65-105) mg/dl Lactate (0.7-2.1) mmol/L FiO2 % Potassium (3.6-5.2) mmol/L Carbon Dioxide (22-30) mmol/L Anion Gap (10-20) BUN (7-17) mg/dL Creatinine (0.7-1.2) MG/DL Est GFR ( Amer) Est GFR (Non-Af Amer) Random Glucose (65-105) mg/dL Calcium (8.6-10.4) mg/dl Phosphorus (2.5-4.5) mg/dL Magnesium (1.6-2.3) mg/dL Ferritin ng/mL Total Bilirubin (0.2-1.3) mg/dL AST (14-36) U/L ALT (9-52) U/L Alkaline Phosphatase (38-126) U/L Total Protein (6.3-8.3) g/dL Albumin (3.5-5.0) g/dL Globulin (2.2-3.9) gm/dL Albumin/Globulin Ratio (1.0-2.1) Vitamin B12 (239-931) pg/mL Folate ng/mL Arterial Blood Potassium (3.6-5.2) mmol/L Hepatitis A IgM Ab (NEGATIVE) Hep Bs Antigen (NEGATIVE) Hep B Core IgM Ab (NEGATIVE) Hepatitis C Antibody (NEGATIVE) HIV 1&2 Antibody Screen (NEGATIVE) Mycoplasma pneumon IgG <=0.90 (<=0.90) Mycoplasma pneumon IgM 112 (<770) U/mL Blood Type Antibody Screen Antibody Identification Laboratory Results - last 24 hr 09/05/16 09/07/16 09/07/16 11:52 10:42 13:31 WBC RBC Hgb Hct MCV MCH MCHC RDW Plt Count Manual Plt Count MPV Neut % (Auto) Lymph % (Auto) [place] % (Auto) Eos % (Auto) Baso % (Auto) Neut # Lymph # [place] # Eos # Baso # Neutrophils % (Manual) 78 H Band Neutrophils % Lymphocytes % (Manual) 8 L Monocytes % (Manual) 12 H Eosinophils % (Manual) 2 Basophils % (Manual) Platelet Estimate Decreased L Plt Clumps, EDTA Present Anisocytosis (manual) Slight Macrocytosis (manual) Moderate Retic Count PT INR APTT Fibrinogen Puncture Site Lb pCO2 46 H pO2 76 L HCO3 28.4 H ABG pH 7.42 ABG Total CO2 31.2 H ABG O2 Saturation 98.0 ABG Base Excess 4.5 H Gumaro Test Na ABG Potassium 3.4 L A-a O2 Difference 152.0 Respiratory Index 2.0 Sodium 138.0 Chloride 103.0 Glucose 88 Lactate 0.9 FiO2 40.0 Potassium Carbon Dioxide Anion Gap BUN Creatinine Est GFR ( Amer) Est GFR (Non-Af Amer) Random Glucose Calcium Phosphorus Magnesium Ferritin Total Bilirubin AST ALT Alkaline Phosphatase Total Protein Albumin Globulin Albumin/Globulin Ratio Vitamin B12 Folate Arterial Blood Potassium 3.4 L Hepatitis A IgM Ab Hep Bs Antigen Hep B Core IgM Ab Hepatitis C Antibody HIV 1&2 Antibody Screen Mycoplasma pneumon IgG <=0.90 Mycoplasma pneumon IgM 112 Blood Type Antibody Screen Antibody Identification 09/07/16 09/07/16 09/08/16 15:06 15:06 07:28 WBC RBC Hgb Hct MCV MCH MCHC RDW Plt Count Manual Plt Count MPV Neut % (Auto) Lymph % (Auto) [place] % (Auto) Eos % (Auto) Baso % (Auto) Neut # Lymph # [place] # Eos # Baso # Neutrophils % (Manual) Band Neutrophils % Lymphocytes % (Manual) Monocytes % (Manual) Eosinophils % (Manual) Basophils % (Manual) Platelet Estimate Plt Clumps, EDTA Anisocytosis (manual) Macrocytosis (manual) Retic Count PT 13.2 H 13.1 H INR 1.2 1.1 APTT 44 H 36 H D Fibrinogen 346 Puncture Site pCO2 pO2 HCO3 ABG pH ABG Total CO2 ABG O2 Saturation ABG Base Excess Gumaro Test ABG Potassium A-a O2 Difference Respiratory Index Sodium Chloride Glucose Lactate FiO2 Potassium Carbon Dioxide Anion Gap BUN Creatinine Est GFR ( Amer) Est GFR (Non-Af Amer) Random Glucose Calcium Phosphorus Magnesium Ferritin Total Bilirubin AST ALT Alkaline Phosphatase Total Protein Albumin Globulin Albumin/Globulin Ratio Vitamin B12 Folate Arterial Blood Potassium Hepatitis A IgM Ab Hep Bs Antigen Hep B Core IgM Ab Hepatitis C Antibody HIV 1&2 Antibody Screen Mycoplasma pneumon IgG Mycoplasma pneumon IgM Blood Type O POSITIVE Antibody Screen Positive Antibody Identification Anti E 09/08/16 09/08/16 09/08/16 10:08 10:08 10:08 WBC 3.4 L RBC 2.45 L Hgb 8.2 L Hct 26.5 L MCV 108.1 H MCH 33.7 H MCHC 31.2 L RDW 17.9 H Plt Count 85 L D Manual Plt Count 86 L MPV 10.2 Neut % (Auto) 76.8 H Lymph % (Auto) 9.4 L [place] % (Auto) 11.3 H Eos % (Auto) 1.5 Baso % (Auto) 1.0 Neut # 2.6 Lymph # 0.3 L [place] # 0.4 Eos # 0.1 Baso # 0.0 Neutrophils % (Manual) 61 Band Neutrophils % 6 H Lymphocytes % (Manual) 13 L Monocytes % (Manual) 16 H Eosinophils % (Manual) 3 Basophils % (Manual) 1 Platelet Estimate Decreased L Plt Clumps, EDTA Anisocytosis (manual) Slight Macrocytosis (manual) Moderate Retic Count 1.8 H PT INR APTT Fibrinogen Puncture Site pCO2 pO2 HCO3 ABG pH ABG Total CO2 ABG O2 Saturation ABG Base Excess Gumaro Test ABG Potassium A-a O2 Difference Respiratory Index Sodium 137 Chloride 95 L Glucose Lactate FiO2 Potassium 4.4 Carbon Dioxide 25 Anion Gap 21 H BUN 34 H Creatinine 2.1 H Est GFR ( Amer) 29 Est GFR (Non-Af Amer) 24 Random Glucose 80 Calcium 8.2 L Phosphorus 3.4 Magnesium 2.0 Ferritin 893.0 Total Bilirubin 1.2 AST 28 ALT 12 Alkaline Phosphatase 114 Total Protein 9.1 H Albumin 4.2 Globulin 4.8 H Albumin/Globulin Ratio 0.9 L Vitamin B12 779 Folate > 20.0 Arterial Blood Potassium Hepatitis A IgM Ab Negative Hep Bs Antigen Negative Hep B Core IgM Ab Negative Hepatitis C Antibody Negative HIV 1&2 Antibody Screen Mycoplasma pneumon IgG Mycoplasma pneumon IgM Blood Type Antibody Screen Antibody Identification 09/08/16 10:08 WBC RBC Hgb Hct MCV MCH MCHC RDW Plt Count Manual Plt Count MPV Neut % (Auto) Lymph % (Auto) [place] % (Auto) Eos % (Auto) Baso % (Auto) Neut # Lymph # [place] # Eos # Baso # Neutrophils % (Manual) Band Neutrophils % Lymphocytes % (Manual) Monocytes % (Manual) Eosinophils % (Manual) Basophils % (Manual) Platelet Estimate Plt Clumps, EDTA Anisocytosis (manual) Macrocytosis (manual) Retic Count PT INR APTT Fibrinogen Puncture Site pCO2 pO2 HCO3 ABG pH ABG Total CO2 ABG O2 Saturation ABG Base Excess Gumaro Test ABG Potassium A-a O2 Difference Respiratory Index Sodium Chloride Glucose Lactate FiO2 Potassium Carbon Dioxide Anion Gap BUN Creatinine Est GFR ( Amer) Est GFR (Non-Af Amer) Random Glucose Calcium Phosphorus Magnesium Ferritin Total Bilirubin AST ALT Alkaline Phosphatase Total Protein Albumin Globulin Albumin/Globulin Ratio Vitamin B12 Folate Arterial Blood Potassium Hepatitis A IgM Ab Hep Bs Antigen Hep B Core IgM Ab Hepatitis C Antibody HIV 1&2 Antibody Screen Negative Mycoplasma pneumon IgG Mycoplasma pneumon IgM Blood Type Antibody Screen Antibody Identification Review of Systems - Constitutional Constitutional: absent: Fever, Chills - EENT Eyes: As Per HPI. absent: Pain Ears: As Per HPI. absent: Tinnitus, Dizziness Nose/Mouth/Throat: As Per HPI. absent: Sore Throat - Cardiovascular Cardiovascular: As Per HPI. absent: Chest Pain, Dyspnea - Respiratory Respiratory: As Per HPI. absent: Cough, Dyspnea - Gastrointestinal Gastrointestinal: As Per HPI. absent: Abdominal Pain, Constipation, Diarrhea, Nausea, Vomiting - Genitourinary Genitourinary: As Per HPI. absent: Dysuria, Hematuria - Musculoskeletal Musculoskeletal: As Par HPI, Arthralgias, Back Pain, Myalgias, Stiffness. absent: Numbness, Tingling - Integumentary Integumentary: As Per HPI, Dry Skin. absent: Rash - Neurological Neurological: As Per HPI. absent: Dizziness, Weakness - Psychiatric Psychiatric: As Per HPI. absent: Anxiety, Depression - Endocrine Endocrine: As Per HPI. absent: Polydipsia, Polyphagia, Polyuria - Hematologic/Lymphatic Hematologic: As Per HPI. absent: Easy Bleeding, Easy Bruising, Lymphadenopathy Assessment/Plan - Assessment and Plan (Free Text) Assessment: 66yo F PMHx CAD, HTN, HLD, ESRD on HD (T//), right AV shunt, arthritis, scleroderma, Asthma, COPD, CHF, glaucoma, afib, PPM, depression, admitted for acute hypoxic respiratory failure Plan: Neuro: -Alert and following commands -Tylenol 650mg carmen for headache -AO x 3 Pulm: -patient onNC 5L -CT chest (09/06/16): Moderate to large b/l pleural effusion slightly larger on left. Cardiomegaly. ET/NGT in place. [id number] pulm vascular congestion ( see full report) -IR consulted for thoracentesis when INR improves and s/p platelets -Duoneb 3ml inh q4 -Mycoplasma IgM 112 -Mycoplasma IgG <0.90 -f/u Legionella CV: -Hemodynamically stable- Afib rate controlled -Midodrine 10mg po tid -Lopressor 25mg po bid -Amiodarone 200mg po daily -Plavix 75mg po daily on hold Hem: -Pancytopenia -INR 1.2 -Patient s/p transfusion 1U platelets -Heme/onc Dr Chairez consulted Renal: -ESRD on HD //Sun -Nephro following Endo: -No acute issues GI: -NPO -NGT Novasource @ goal rate 40cc/hr -Colace 100mg po bid MSK: -Patient has hx of scleroderma -PT/OT ordered ID: -Procalcitonin 1.32 -Zosyn 2.25gm ivpb q6 (start 09/05/16) -Doxycycline 100mg ivpb q12 (start 09/02/16) -Blood culture negative x 2 on 09/02 -Blood culture negative x 2 on 08/31 DVT proph: heparin 5000u sc q12 on hold GI proph: Pepcid 20mg po daily. sauceda for strict I/O's during acute illness Code status: full code Case discussed with Dr. Sue Clark PGY2 <Kev Rogers - Last Filed: 09/08/16 18:51> CCU Objective - Vital Signs / Intake & Output Vital Signs (Last 4 hours): Vital Signs Pulse Resp BP Pulse Ox 09/08/16 18:10 72 20 09/08/16 18:08 101/64 09/08/16 18:00 102/61 09/08/16 17:59 65 27 H 100 09/08/16 17:08 60 22 96/45 L 100 09/08/16 17:00 60 19 100 09/08/16 16:07 65 18 108/52 L 100 09/08/16 16:00 66 21 100 09/08/16 15:07 67 23 118/51 L 100 09/08/16 15:00 70 11 L Intake and Output (Last 8hrs): Intake & Output 09/08/16 09/08/16 09/08/16 06:59 14:59 22:59 Intake Total 50 260 0 Balance 50 260 0 Weight 141 lb Intake: Intake, IV Amount 210 0 Left External Jugular 210 0 Oral 50 50 Other: # Bowel Movements 0 0 - Medications Active Medications: Active Medications Generic Name Dose Route Start Last Admin Trade Name Freq PRN Reason Stop Dose Admin Acetaminophen 650 mg 09/04/16 20:01 09/08/16 06:07 Tylenol 650mg/20.3ml Solution Ud PO 650 mg Q4 PRN Administration Headache Albuterol/Ipratropium 3 ml 09/01/16 04:00 09/08/16 15:48 Duoneb 3 Mg/0.5 Mg (3 Ml) Ud INH Not Given RQ4 NVEAEH Amiodarone HCl 200 mg 09/01/16 10:00 09/08/16 09:40 Cordarone PO 200 mg DAILY NEVAEH Administration Clopidogrel Bisulfate 75 mg 09/01/16 10:00 09/07/16 10:26 Plavix PO Not Given DAILY NEVAEH Docusate Sodium 100 mg 09/01/16 01:47 09/04/16 11:08 Colace PO 100 mg BID PRN Administration Constipation Famotidine 20 mg 09/01/16 10:00 09/08/16 09:40 Pepcid PO 20 mg DAILY NEVAEH Administration Folic Acid 1 mg 09/01/16 10:00 09/08/16 09:40 Folic Acid NG 1 mg DAILY NEVAEH Administration Heparin Sodium (Porcine) 5,000 units 09/02/16 22:00 09/05/16 09:00 Heparin SC 5,000 units Q12 NEVAEH Administration Doxycycline Hyclate 100 mg/ 100 mls @ 100 mls/hr 09/02/16 23:30 09/08/16 11: 58 Sodium Chloride IVPB 100 mls/hr Q12H NEVAEH Administration Piperacillin Sod/Tazobactam Sod 2.25 gm in 50 mls @ 100 mls/hr 09/05/16 11:00 09/08/16 17:48 Zosyn 2.25 Gm Iv Premix IVPB 100 mls/hr Q6H NEVAEH Administration Metoprolol Tartrate 25 mg 09/01/16 10:00 09/08/16 18:00 Lopressor PO Not Given BID NEVAEH Midodrine 10 mg 09/04/16 14:00 09/08/16 17:48 Proamatine PO 10 mg TID NEVAEH Administration Oxycodone/Acetaminophen 1 tab 09/08/16 08:40 09/08/16 17:52 Percocet 5/325 Mg Tab PO 09/11/16 08:41 1 tab Q4H PRN Administration Pain, moderate (4-7) Potassium Phos/Sodium Phos 1 pkt 09/06/16 10:00 09/08/16 09:46 Neutra-Phos PO 1 pkt Q12H NEVAEH Administration - Patient Studies Lab Studies: Microbiology Studies 09/05/16 08:05 Legionella Culture - Preliminary Other: Please Indicate Lab Studies 09/08/16 09/08/16 09/08/16 Range/Units 10:08 10:08 10:08 WBC 3.4 L (4.8-10.8) K/uL RBC 2.45 L (3.80-5.20) Mil/uL Hgb 8.2 L (11.0-16.0) g/dL Hct 26.5 L (34.0-47.0) % MCV 108.1 H (81.0-99.0) fL MCH 33.7 H (27.0-31.0) pg MCHC 31.2 L (33.0-37.0) g/dL RDW 17.9 H (11.5-14.5) % Plt Count 85 L D (130-400) K/uL Manual Plt Count 86 L (130-400) K/uL MPV 10.2 (7.2-11.7) fL Neut % (Auto) 76.8 H (50.0-75.0) % Lymph % (Auto) 9.4 L (20.0-40.0) % [place] % (Auto) 11.3 H (0.0-10.0) % Eos % (Auto) 1.5 (0.0-4.0) % Baso % (Auto) 1.0 (0.0-2.0) % Neut # 2.6 (1.8-7.0) K/uL Lymph # 0.3 L (1.0-4.3) K/uL [place] # 0.4 (0.0-0.8) K/uL Eos # 0.1 (0.0-0.7) K/uL Baso # 0.0 (0.0-0.2) K/uL Neutrophils % (Manual) 61 (50-75) % Band Neutrophils % 6 H (0-2) % Lymphocytes % (Manual) 13 L (20-40) % Monocytes % (Manual) 16 H (0-10) % Eosinophils % (Manual) 3 (0-4) % Basophils % (Manual) 1 (0-2) % Platelet Estimate Decreased L (NORMAL) Anisocytosis (manual) Slight Macrocytosis (manual) Moderate Retic Count 1.8 H (0.5-1.5) % PT (9.7-12.2) SECONDS INR APTT (21-34) SECONDS Sodium (132-148) mmol/L Potassium (3.6-5.2) mmol/L Chloride (98-107) mmol/L Carbon Dioxide (22-30) mmol/L Anion Gap (10-20) BUN (7-17) mg/dL Creatinine (0.7-1.2) MG/DL Est GFR ( Amer) Est GFR (Non-Af Amer) Random Glucose (65-105) mg/dL Calcium (8.6-10.4) mg/dl Phosphorus (2.5-4.5) mg/dL Magnesium (1.6-2.3) mg/dL Ferritin ng/mL Total Bilirubin (0.2-1.3) mg/dL AST (14-36) U/L ALT (9-52) U/L Alkaline Phosphatase (38-126) U/L Total Protein (6.3-8.3) g/dL Albumin (3.5-5.0) g/dL Globulin (2.2-3.9) gm/dL Albumin/Globulin Ratio (1.0-2.1) Vitamin B12 (239-931) pg/mL Folate ng/mL Hepatitis A IgM Ab Negative (NEGATIVE) Hep Bs Antigen Negative (NEGATIVE) Hep B Core IgM Ab Negative (NEGATIVE) Hepatitis C Antibody Negative (NEGATIVE) HIV 1&2 Antibody Screen Negative (NEGATIVE) 09/08/16 09/08/16 Range/Units 10:08 07:28 WBC (4.8-10.8) K/uL RBC (3.80-5.20) Mil/uL Hgb (11.0-16.0) g/dL Hct (34.0-47.0) % MCV (81.0-99.0) fL MCH (27.0-31.0) pg MCHC (33.0-37.0) g/dL RDW (11.5-14.5) % Plt Count (130-400) K/uL Manual Plt Count (130-400) K/uL MPV (7.2-11.7) fL Neut % (Auto) (50.0-75.0) % Lymph % (Auto) (20.0-40.0) % [place] % (Auto) (0.0-10.0) % Eos % (Auto) (0.0-4.0) % Baso % (Auto) (0.0-2.0) % Neut # (1.8-7.0) K/uL Lymph # (1.0-4.3) K/uL [place] # (0.0-0.8) K/uL Eos # (0.0-0.7) K/uL Baso # (0.0-0.2) K/uL Neutrophils % (Manual) (50-75) % Band Neutrophils % (0-2) % Lymphocytes % (Manual) (20-40) % Monocytes % (Manual) (0-10) % Eosinophils % (Manual) (0-4) % Basophils % (Manual) (0-2) % Platelet Estimate (NORMAL) Anisocytosis (manual) Macrocytosis (manual) Retic Count (0.5-1.5) % PT 13.1 H (9.7-12.2) SECONDS INR 1.1 APTT 36 H D (21-34) SECONDS Sodium 137 (132-148) mmol/L Potassium 4.4 (3.6-5.2) mmol/L Chloride 95 L (98-107) mmol/L Carbon Dioxide 25 (22-30) mmol/L Anion Gap 21 H (10-20) BUN 34 H (7-17) mg/dL Creatinine 2.1 H (0.7-1.2) MG/DL Est GFR ( Amer) 29 Est GFR (Non-Af Amer) 24 Random Glucose 80 (65-105) mg/dL Calcium 8.2 L (8.6-10.4) mg/dl Phosphorus 3.4 (2.5-4.5) mg/dL Magnesium 2.0 (1.6-2.3) mg/dL Ferritin 893.0 ng/mL Total Bilirubin 1.2 (0.2-1.3) mg/dL AST 28 (14-36) U/L ALT 12 (9-52) U/L Alkaline Phosphatase 114 (38-126) U/L Total Protein 9.1 H (6.3-8.3) g/dL Albumin 4.2 (3.5-5.0) g/dL Globulin 4.8 H (2.2-3.9) gm/dL Albumin/Globulin Ratio 0.9 L (1.0-2.1) Vitamin B12 779 (239-931) pg/mL Folate > 20.0 ng/mL Hepatitis A IgM Ab (NEGATIVE) Hep Bs Antigen (NEGATIVE) Hep B Core IgM Ab (NEGATIVE) Hepatitis C Antibody (NEGATIVE) HIV 1&2 Antibody Screen (NEGATIVE) Laboratory Results - last 24 hr 09/08/16 09/08/16 09/08/16 07:28 10:08 10:08 WBC 3.4 L RBC 2.45 L Hgb 8.2 L Hct 26.5 L MCV 108.1 H MCH 33.7 H MCHC 31.2 L RDW 17.9 H Plt Count 85 L D Manual Plt Count 86 L MPV 10.2 Neut % (Auto) 76.8 H Lymph % (Auto) 9.4 L [place] % (Auto) 11.3 H Eos % (Auto) 1.5 Baso % (Auto) 1.0 Neut # 2.6 Lymph # 0.3 L [place] # 0.4 Eos # 0.1 Baso # 0.0 Neutrophils % (Manual) 61 Band Neutrophils % 6 H Lymphocytes % (Manual) 13 L Monocytes % (Manual) 16 H Eosinophils % (Manual) 3 Basophils % (Manual) 1 Platelet Estimate Decreased L Anisocytosis (manual) Slight Macrocytosis (manual) Moderate Retic Count 1.8 H PT 13.1 H INR 1.1 APTT 36 H D Sodium 137 Potassium 4.4 Chloride 95 L Carbon Dioxide 25 Anion Gap 21 H BUN 34 H Creatinine 2.1 H Est GFR ( Amer) 29 Est GFR (Non-Af Amer) 24 Random Glucose 80 Calcium 8.2 L Phosphorus 3.4 Magnesium 2.0 Ferritin 893.0 Total Bilirubin 1.2 AST 28 ALT 12 Alkaline Phosphatase 114 Total Protein 9.1 H Albumin 4.2 Globulin 4.8 H Albumin/Globulin Ratio 0.9 L Vitamin B12 779 Folate > 20.0 Hepatitis A IgM Ab Hep Bs Antigen Hep B Core IgM Ab Hepatitis C Antibody HIV 1&2 Antibody Screen 09/08/16 09/08/16 10:08 10:08 WBC RBC Hgb Hct MCV MCH MCHC RDW Plt Count Manual Plt Count MPV Neut % (Auto) Lymph % (Auto) [place] % (Auto) Eos % (Auto) Baso % (Auto) Neut # Lymph # [place] # Eos # Baso # Neutrophils % (Manual) Band Neutrophils % Lymphocytes % (Manual) Monocytes % (Manual) Eosinophils % (Manual) Basophils % (Manual) Platelet Estimate Anisocytosis (manual) Macrocytosis (manual) Retic Count PT INR APTT Sodium Potassium Chloride Carbon Dioxide Anion Gap BUN Creatinine Est GFR ( Amer) Est GFR (Non-Af Amer) Random Glucose Calcium Phosphorus Magnesium Ferritin Total Bilirubin AST ALT Alkaline Phosphatase Total Protein Albumin Globulin Albumin/Globulin Ratio Vitamin B12 Folate Hepatitis A IgM Ab Negative Hep Bs Antigen Negative Hep B Core IgM Ab Negative Hepatitis C Antibody Negative HIV 1&2 Antibody Screen Negative Critical Care Progress Note - Nutrition Nutrition: Nutrition Category Date Time Status Dysphagia/Modified Consistency Diet [DIET] Diets 09/08/16 Dinner Active Assessment/Plan (1) Respiratory failure Current Visit: Yes Status: Acute Attending/Attestation - Attestation I have personally seen and examined this patient.: Yes I have fully participated in the care of the patient.: Yes I have reviewed all pertinent clinical information: Yes Notes (Text): 09/08/16 18:49 I have seen and examined the patient. Medical records, lab studies, and imaging were reviewed by me and a management plan was formulated on multidisciplinary rounds with resident Dr. Clark. I agree with their above documented assessment and plan. Patient will need bilateral thoracentesis to improve lung function and to better titrate off oxygen. Schedule for left lung thoracentesis with IR on Sunday. Can then perform right lung thoracentesis on Sunday. Critical Care Time 35 minutes. Multi-disciplinary rounds were performed with house staff, nursing, speech therapy, respiratory therapy, pharmacy and nutrition with integrated input from the primary team/attending and other consulting services. The documented time is cumulative and includes review of patient data/exams/labs/chart review and examination of the patient on rounds and throughout the day; time is exclusive of any procedures or teaching time.
--- NOTE | 2016-09-08 17:59 | CP.PCM.PN ---
Subjective - Date & Time of Evaluation Date of Evaluation: 09/08/16 Time of Evaluation: 11:00 - Subjective Subjective: clinically same Objective - Vital Signs/Intake and Output Vital Signs (last 24 hours): Temp Pulse Resp BP Pulse Ox 97.5 F L 67 23 118/51 L 100 09/08/16 06:55 09/08/16 15:07 09/08/16 15:07 09/08/16 15:07 09/08/16 15:07 Intake and Output: 09/08/16 09/08/16 06:59 18:59 Intake Total 250 260 Balance 250 260 - Medications Medications: Current Medications Acetaminophen (Tylenol 650mg/20.3ml Solution Ud) 650 mg PO Q4 PRN PRN Reason: Headache Last Admin: 09/08/16 06:07 Dose: 650 mg Albuterol/Ipratropium (Duoneb 3 Mg/0.5 Mg (3 Ml) Ud) 3 ml INH RQ4 [facility] Last Admin: 09/08/16 15:48 Dose: Not Given Amiodarone HCl (Cordarone) 200 mg PO DAILY [facility] Last Admin: 09/08/16 09:40 Dose: 200 mg Clopidogrel Bisulfate (Plavix) 75 mg PO DAILY [facility] Last Admin: 09/07/16 10:26 Dose: Not Given Docusate Sodium (Colace) 100 mg PO BID PRN PRN Reason: Constipation Last Admin: 09/04/16 11:08 Dose: 100 mg Famotidine (Pepcid) 20 mg PO DAILY [facility] Last Admin: 09/08/16 09:40 Dose: 20 mg Folic Acid (Folic Acid) 1 mg NG DAILY [facility] Last Admin: 09/08/16 09:40 Dose: 1 mg Heparin Sodium (Porcine) (Heparin) 5,000 units SC Q12 [facility] Last Admin: 09/05/16 09:00 Dose: 5,000 units Doxycycline Hyclate 100 mg/ (Sodium Chloride) 100 mls @ 100 mls/hr IVPB Q12H [facility] Last Admin: 09/08/16 11:58 Dose: 100 mls/hr Piperacillin Sod/Tazobactam Sod (Zosyn 2.25 Gm Iv Premix) 2.25 gm in 50 mls @ 100 mls/hr IVPB Q6H [facility] Last Admin: 09/08/16 17:48 Dose: 100 mls/hr Metoprolol Tartrate (Lopressor) 25 mg PO BID [facility] Last Admin: 09/08/16 10:00 Dose: Not Given Midodrine (Proamatine) 10 mg PO TID [facility] Last Admin: 09/08/16 17:48 Dose: 10 mg Oxycodone/Acetaminophen (Percocet 5/325 Mg Tab) 1 tab PO Q4H PRN PRN Reason: Pain, moderate (4-7) Stop: 09/11/16 08:41 Last Admin: 09/08/16 17:52 Dose: 1 tab Potassium Phos/Sodium Phos (Neutra-Phos) 1 pkt PO Q12H [facility] Last Admin: 09/08/16 09:46 Dose: 1 pkt - Labs Labs: 09/08/16 10:08 09/08/16 10:08 PT 13.1 SECONDS (9.7-12.2) H 09/08/16 07:28 INR 1.1 09/08/16 07:28 APTT 36 SECONDS (21-34) H D 09/08/16 07:28 - Constitutional Appears: Well - Head Exam Head Exam: ATRAUMATIC, NORMAL INSPECTION, NORMOCEPHALIC - Eye Exam Eye Exam: EOMI, Normal appearance, PERRL Pupil Exam: NORMAL ACCOMODATION, PERRL - ENT Exam ENT Exam: Mucous Membranes Moist, Normal Exam - Neck Exam Neck Exam: Full ROM, Normal Inspection. absent: Lymphadenopathy - Respiratory Exam Respiratory Exam: Decreased Breath Sounds - Cardiovascular Exam Cardiovascular Exam: REGULAR RHYTHM, +S1, +S2 - GI/Abdominal Exam GI & Abdominal Exam: Soft, Diminished Bowel Sounds - Rectal Exam Rectal Exam: Deferred
--- NOTE | 2016-09-08 21:50 | CP.PCM.PN ---
Subjective - Date & Time of Evaluation Date of Evaluation: 09/08/16 Time of Evaluation: 21:47 - Subjective Subjective: seen and examined this am lethargic, o2 face mask s/p platelet transfusion, plan for thoracentesis noted Objective - Vital Signs/Intake and Output Vital Signs (last 24 hours): Temp Pulse Resp BP Pulse Ox 97.5 F L 63 19 125/66 100 09/08/16 06:55 09/08/16 20:07 09/08/16 20:07 09/08/16 20:07 09/08/16 20:07 Intake and Output: 09/08/16 09/09/16 18:59 06:59 Intake Total 810 0 Balance 810 0 - Medications Medications: Current Medications Acetaminophen (Tylenol 650mg/20.3ml Solution Ud) 650 mg PO Q4 PRN PRN Reason: Headache Last Admin: 09/08/16 06:07 Dose: 650 mg Albuterol/Ipratropium (Duoneb 3 Mg/0.5 Mg (3 Ml) Ud) 3 ml INH RQ4 [facility] Last Admin: 09/08/16 19:19 Dose: 3 ml Amiodarone HCl (Cordarone) 200 mg PO DAILY [facility] Last Admin: 09/08/16 09:40 Dose: 200 mg Clopidogrel Bisulfate (Plavix) 75 mg PO DAILY [facility] Last Admin: 09/07/16 10:26 Dose: Not Given Docusate Sodium (Colace) 100 mg PO BID PRN PRN Reason: Constipation Last Admin: 09/04/16 11:08 Dose: 100 mg Famotidine (Pepcid) 20 mg PO DAILY [facility] Last Admin: 09/08/16 09:40 Dose: 20 mg Folic Acid (Folic Acid) 1 mg NG DAILY [facility] Last Admin: 09/08/16 09:40 Dose: 1 mg Heparin Sodium (Porcine) (Heparin) 5,000 units SC Q12 [facility] Last Admin: 09/05/16 09:00 Dose: 5,000 units Doxycycline Hyclate 100 mg/ (Sodium Chloride) 100 mls @ 100 mls/hr IVPB Q12H [facility] Last Admin: 09/08/16 11:58 Dose: 100 mls/hr Piperacillin Sod/Tazobactam Sod (Zosyn 2.25 Gm Iv Premix) 2.25 gm in 50 mls @ 100 mls/hr IVPB Q6H [facility] Last Admin: 09/08/16 17:48 Dose: 100 mls/hr Metoprolol Tartrate (Lopressor) 25 mg PO BID [facility] Last Admin: 09/08/16 18:00 Dose: Not Given Midodrine (Proamatine) 10 mg PO TID [facility] Last Admin: 09/08/16 17:48 Dose: 10 mg Oxycodone/Acetaminophen (Percocet 5/325 Mg Tab) 1 tab PO Q4H PRN PRN Reason: Pain, moderate (4-7) Stop: 09/11/16 08:41 Last Admin: 09/08/16 17:52 Dose: 1 tab Potassium Phos/Sodium Phos (Neutra-Phos) 1 pkt PO Q12H [facility] Last Admin: 09/08/16 09:46 Dose: 1 pkt - Labs Labs: 09/08/16 10:08 09/08/16 10:08 PT 13.1 SECONDS (9.7-12.2) H 09/08/16 07:28 INR 1.1 09/08/16 07:28 APTT 36 SECONDS (21-34) H D 09/08/16 07:28 - Constitutional Appears: Non-toxic, No Acute Distress, Cachectic, Chronically Ill - Head Exam Head Exam: NORMAL INSPECTION - Eye Exam Eye Exam: Normal appearance - ENT Exam Additional comments: face mask - Neck Exam Neck Exam: Normal Inspection - Respiratory Exam Respiratory Exam: Decreased Breath Sounds, Rales, NORMAL BREATHING PATTERN - Cardiovascular Exam Cardiovascular Exam: Bradycardia, REGULAR RHYTHM - GI/Abdominal Exam GI & Abdominal Exam: Soft, Normal Bowel Sounds - Extremities Exam Extremities Exam: Normal Inspection (no edema) - Skin Additional comments: chronic skin changes/ ulcers Assessment and Plan (1) ESRD (end stage renal disease) on dialysis Status: Acute (2) Respiratory failure Status: Acute (3) Anemia Status: Acute (4) Atrial fibrillation Status: Acute (5) Chronic pain Status: Acute (6) ESRD on hemodialysis Status: Acute (7) Fibrosing dermatitis Status: Acute - Assessment and Plan (Free Text) Assessment: s/p vdrf thoracentesis per icu team hd tomorrow, max uf as tolerated encourage protein intake
[2016-09-09] MEDS: Albuterol-Ipratrop 3 mg / 0.5 (3 ml) UD INH SCH ×5 (03:09→19:46)
--- NOTE | 2016-09-09 03:58 | CP.PCM.PN ---
Subjective - Date & Time of Evaluation Date of Evaluation: 09/08/16 Time of Evaluation: 19:00 - Subjective Subjective: More alert, on venti mask Objective - Vital Signs/Intake and Output Vital Signs (last 24 hours): Temp Pulse Resp BP Pulse Ox 97.5 F L 67 28 H 130/61 100 09/08/16 06:55 09/09/16 00:00 09/09/16 00:00 09/08/16 23:07 09/09/16 00:00 Intake and Output: 09/08/16 09/09/16 18:59 06:59 Intake Total 810 230 Balance 810 230 - Medications Medications: Current Medications Acetaminophen (Tylenol 650mg/20.3ml Solution Ud) 650 mg PO Q4 PRN PRN Reason: Headache Last Admin: 09/08/16 06:07 Dose: 650 mg Albuterol/Ipratropium (Duoneb 3 Mg/0.5 Mg (3 Ml) Ud) 3 ml INH RQ4 [facility] Last Admin: 09/09/16 03:09 Dose: Not Given Amiodarone HCl (Cordarone) 200 mg PO DAILY [facility] Last Admin: 09/08/16 09:40 Dose: 200 mg Clopidogrel Bisulfate (Plavix) 75 mg PO DAILY [facility] Last Admin: 09/07/16 10:26 Dose: Not Given Docusate Sodium (Colace) 100 mg PO BID PRN PRN Reason: Constipation Last Admin: 09/04/16 11:08 Dose: 100 mg Famotidine (Pepcid) 20 mg PO DAILY [facility] Last Admin: 09/08/16 09:40 Dose: 20 mg Folic Acid (Folic Acid) 1 mg NG DAILY [facility] Last Admin: 09/08/16 09:40 Dose: 1 mg Heparin Sodium (Porcine) (Heparin) 5,000 units SC Q12 [facility] Last Admin: 09/05/16 09:00 Dose: 5,000 units Doxycycline Hyclate 100 mg/ (Sodium Chloride) 100 mls @ 100 mls/hr IVPB Q12H [facility] Last Admin: 09/08/16 22:54 Dose: 100 mls/hr Piperacillin Sod/Tazobactam Sod (Zosyn 2.25 Gm Iv Premix) 2.25 gm in 50 mls @ 100 mls/hr IVPB Q6H [facility] Last Admin: 09/08/16 22:01 Dose: 100 mls/hr Metoprolol Tartrate (Lopressor) 25 mg PO BID [facility] Last Admin: 09/08/16 18:00 Dose: Not Given Midodrine (Proamatine) 10 mg PO TID [facility] Last Admin: 09/08/16 17:48 Dose: 10 mg Oxycodone/Acetaminophen (Percocet 5/325 Mg Tab) 1 tab PO Q4H PRN PRN Reason: Pain, moderate (4-7) Stop: 09/11/16 08:41 Last Admin: 09/08/16 22:47 Dose: 1 tab Potassium Phos/Sodium Phos (Neutra-Phos) 1 pkt PO Q12H [facility] Last Admin: 09/08/16 22:00 Dose: 1 pkt - Labs Labs: 09/08/16 10:08 09/08/16 10:08 PT 13.1 SECONDS (9.7-12.2) H 09/08/16 07:28 INR 1.1 09/08/16 07:28 APTT 36 SECONDS (21-34) H D 09/08/16 07:28 - Head Exam Head Exam: ATRAUMATIC - Eye Exam Eye Exam: Normal appearance - ENT Exam ENT Exam: Mucous Membranes Dry - Respiratory Exam Respiratory Exam: NORMAL BREATHING PATTERN - GI/Abdominal Exam GI & Abdominal Exam: Normal Bowel Sounds Assessment and Plan (1) Pancytopenia Assessment & Plan: no neutropenia anemia of chronic disease and CKD; EPO per renal s/p plt transfusion with mild improvement in plt count Status: Acute (2) Coagulopathy Assessment & Plan: fibrinogen sent; f/u nutritional component Status: Acute (3) Elevated serum globulin level Assessment & Plan: will evaluate for monoclonal protein Status: Acute
[2016-09-09] MEDS: Oxycodone/Acetaminophen 5/325 mg Tab PO PRN ×3 (04:47→17:54)
[2016-09-09] MEDS: Piperacill/Tazo 2.25gm in Dex 2.25 GM/50 ML BAG IVPB SCH ×4 (04:50→23:03)
[2016-09-09 06:31] LABS: EOS # 0.1 K/uL (0.0-0.7); EOS % 1.9 % (0.0-4.0); HEMOGLOBIN 8.3 g/dL (11.0-16.0); LYMPH # 0.5 K/uL (1.0-4.3); LYMPH % 14.5 % (20.0-40.0); MEAN CELL VOLUME 108.8 fL (81.0-99.0); MEAN CORPUSCULAR HEMOGLOBIN 33.6 pg (27.0-31.0); MEAN CORPUSCULAR HGB CONC 30.9 g/dL (33.0-37.0); MEAN PLATELET VOLUME 11.2 fL (7.2-11.7); MONO # 0.4 K/uL (0.0-0.8); MONO % 11.9 % (0.0-10.0); NEUT # 2.4 K/uL (1.8-7.0); NEUT % 70.7 % (50.0-75.0); NRBC % 0.1 % (0.0-2.0); RBC 2.49 Mil/uL (3.80-5.20); RED CELL DISTRIBUTION WIDTH 17.7 % (11.5-14.5); WHITE BLOOD COUNT 3.3 K/uL (4.8-10.8)
[2016-09-09 06:37] LABS: ALBUMIN 4.1 g/dL (3.5-5.0)
[2016-09-09 06:40] LABS: ALB/GLOB RATIO 0.9 (1.0-2.1)
[2016-09-09 06:41] LABS: CALCIUM 7.6 mg/dl (8.6-10.4); MAGNESIUM 1.9 mg/dL (1.6-2.3)
--- NOTE | 2016-09-09 08:52 | CP.PCM.PN ---
Subjective - Date & Time of Evaluation Date of Evaluation: 09/09/16 Time of Evaluation: 08:50 - Subjective Subjective: extubated awake alert comfoerable hypocalcemic? States sob cough vomited x 1 this AM No nausea now No abd or chest pain pain in extremities Objective - Vital Signs/Intake and Output Vital Signs (last 24 hours): Temp Pulse Resp BP Pulse Ox 97.3 F L 62 19 130/51 L 100 09/09/16 08:00 09/09/16 08:07 09/09/16 08:07 09/09/16 08:07 09/09/16 08:07 Intake and Output: 09/09/16 09/09/16 06:59 18:59 Intake Total 280 0 Balance 280 0 - Medications Medications: Current Medications Acetaminophen (Tylenol 650mg/20.3ml Solution Ud) 650 mg PO Q4 PRN PRN Reason: Headache Last Admin: 09/08/16 06:07 Dose: 650 mg Albuterol/Ipratropium (Duoneb 3 Mg/0.5 Mg (3 Ml) Ud) 3 ml INH RQ4 [facility] Last Admin: 09/09/16 07:54 Dose: 3 ml Amiodarone HCl (Cordarone) 200 mg PO DAILY [facility] Last Admin: 09/08/16 09:40 Dose: 200 mg Clopidogrel Bisulfate (Plavix) 75 mg PO DAILY [facility] Last Admin: 09/07/16 10:26 Dose: Not Given Docusate Sodium (Colace) 100 mg PO BID PRN PRN Reason: Constipation Last Admin: 09/04/16 11:08 Dose: 100 mg Famotidine (Pepcid) 20 mg PO DAILY [facility] Last Admin: 09/08/16 09:40 Dose: 20 mg Folic Acid (Folic Acid) 1 mg NG DAILY [facility] Last Admin: 09/08/16 09:40 Dose: 1 mg Heparin Sodium (Porcine) (Heparin) 5,000 units SC Q12 [facility] Last Admin: 09/05/16 09:00 Dose: 5,000 units Doxycycline Hyclate 100 mg/ (Sodium Chloride) 100 mls @ 100 mls/hr IVPB Q12H [facility] Last Admin: 09/08/16 22:54 Dose: 100 mls/hr Piperacillin Sod/Tazobactam Sod (Zosyn 2.25 Gm Iv Premix) 2.25 gm in 50 mls @ 100 mls/hr IVPB Q6H [facility] Last Admin: 09/09/16 04:50 Dose: 100 mls/hr Metoprolol Tartrate (Lopressor) 25 mg PO BID [facility] Last Admin: 09/08/16 18:00 Dose: Not Given Midodrine (Proamatine) 10 mg PO TID [facility] Last Admin: 09/08/16 17:48 Dose: 10 mg Oxycodone/Acetaminophen (Percocet 5/325 Mg Tab) 1 tab PO Q4H PRN PRN Reason: Pain, moderate (4-7) Stop: 09/11/16 08:41 Last Admin: 09/09/16 04:47 Dose: 1 tab Potassium Phos/Sodium Phos (Neutra-Phos) 1 pkt PO Q12H [facility] Last Admin: 09/08/16 22:00 Dose: 1 pkt - Labs Labs: 09/09/16 06:17 09/09/16 06:17 PT 13.1 SECONDS (9.7-12.2) H 09/08/16 07:28 INR 1.1 09/08/16 07:28 APTT 36 SECONDS (21-34) H D 09/08/16 07:28 - Constitutional Appears: No Acute Distress - ENT Exam ENT Exam: Mucous Membranes Moist - Respiratory Exam Respiratory Exam: Clear to Ausculation Bilateral - Cardiovascular Exam Cardiovascular Exam: REGULAR RHYTHM - GI/Abdominal Exam GI & Abdominal Exam: Soft. absent: Distended, Tenderness - Neurological Exam Neurological Exam: Awake - Psychiatric Exam Psychiatric exam: absent: Agitated - Skin Additional comments: skin extremiies dark Assessment and Plan (1) ESRD (end stage renal disease) on dialysis Status: Acute (2) Respiratory failure Status: Acute (3) COPD (chronic obstructive pulmonary disease) Status: Acute (4) ESRD on hemodialysis Status: Acute (5) Fibrosing dermatitis Status: Acute (6) Paroxysmal atrial fibrillation Status: Acute - Assessment and Plan (Free Text) Plan: dislysis today with ultrafiltration try to remove 2 kg repeat bmp and phosphorus
[2016-09-09] MEDS: Potassium & Sodium Phosphate PO SCH ×2 (09:17→23:06)
[2016-09-09 09:43] LABS: FUNCTIONING PLTS 56 K/uL; PLT BASE COUNT 104 K/uL; PLT(ADP) 48 K/uL
[2016-09-09 10:13] LABS: CALCIUM 7.5 mg/dl (8.6-10.4)
--- NOTE | 2016-09-09 10:21 | CP.PCM.PN ---
Subjective - Date & Time of Evaluation Date of Evaluation: 09/09/16 Time of Evaluation: 12:00 - Subjective Subjective: clinically same Objective - Vital Signs/Intake and Output Vital Signs (last 24 hours): Temp Pulse Resp BP Pulse Ox 97.3 F L 62 19 122/67 100 09/09/16 09:20 09/09/16 09:46 09/09/16 09:46 09/09/16 10:20 09/09/16 09:46 Intake and Output: 09/09/16 09/09/16 06:59 18:59 Intake Total 280 0 Balance 280 0 - Medications Medications: Current Medications Acetaminophen (Tylenol 650mg/20.3ml Solution Ud) 650 mg PO Q4 PRN PRN Reason: Headache Last Admin: 09/08/16 06:07 Dose: 650 mg Albuterol/Ipratropium (Duoneb 3 Mg/0.5 Mg (3 Ml) Ud) 3 ml INH RQ4 [facility] Last Admin: 09/09/16 07:54 Dose: 3 ml Amiodarone HCl (Cordarone) 200 mg PO DAILY [facility] Last Admin: 09/09/16 09:17 Dose: 200 mg Clopidogrel Bisulfate (Plavix) 75 mg PO DAILY [facility] Last Admin: 09/07/16 10:26 Dose: Not Given Docusate Sodium (Colace) 100 mg PO BID PRN PRN Reason: Constipation Last Admin: 09/04/16 11:08 Dose: 100 mg Famotidine (Pepcid) 20 mg PO DAILY [facility] Last Admin: 09/09/16 09:17 Dose: 20 mg Folic Acid (Folic Acid) 1 mg NG DAILY [facility] Last Admin: 09/09/16 09:17 Dose: 1 mg Heparin Sodium (Porcine) (Heparin) 5,000 units SC Q12 [facility] Last Admin: 09/05/16 09:00 Dose: 5,000 units Doxycycline Hyclate 100 mg/ (Sodium Chloride) 100 mls @ 100 mls/hr IVPB Q12H [facility] Last Admin: 09/08/16 22:54 Dose: 100 mls/hr Piperacillin Sod/Tazobactam Sod (Zosyn 2.25 Gm Iv Premix) 2.25 gm in 50 mls @ 100 mls/hr IVPB Q6H [facility] Last Admin: 09/09/16 04:50 Dose: 100 mls/hr Metoprolol Tartrate (Lopressor) 25 mg PO BID [facility] Last Admin: 09/08/16 18:00 Dose: Not Given Midodrine (Proamatine) 10 mg PO TID [facility] Last Admin: 09/08/16 17:48 Dose: 10 mg Oxycodone/Acetaminophen (Percocet 5/325 Mg Tab) 1 tab PO Q4H PRN PRN Reason: Pain, moderate (4-7) Stop: 09/11/16 08:41 Last Admin: 09/09/16 09:16 Dose: 1 tab Potassium Phos/Sodium Phos (Neutra-Phos) 1 pkt PO Q12H [facility] Last Admin: 09/09/16 09:17 Dose: 1 pkt - Labs Labs: 09/09/16 06:17 09/09/16 09:36 PT 13.1 SECONDS (9.7-12.2) H 09/08/16 07:28 INR 1.1 09/08/16 07:28 APTT 36 SECONDS (21-34) H D 09/08/16 07:28 - Constitutional Appears: Well - Head Exam Head Exam: ATRAUMATIC, NORMAL INSPECTION, NORMOCEPHALIC - Eye Exam Eye Exam: EOMI, Normal appearance, PERRL Pupil Exam: NORMAL ACCOMODATION, PERRL - ENT Exam ENT Exam: Mucous Membranes Moist, Normal Exam - Neck Exam Neck Exam: Full ROM, Normal Inspection. absent: Lymphadenopathy - Respiratory Exam Respiratory Exam: Decreased Breath Sounds - Cardiovascular Exam Cardiovascular Exam: REGULAR RHYTHM, +S1, +S2 - GI/Abdominal Exam GI & Abdominal Exam: Soft, Diminished Bowel Sounds - Rectal Exam Rectal Exam: Deferred
--- NOTE | 2016-09-09 15:41 | CP.CCUPN ---
CCU Subjective - Physician Review Events Since Last Encounter (Free Text): 09/09/16 15:37 patient seen and examined in the intensive care unit. Case discussed with house staff in the morning round Complaining of dyspnea on minimal exertion On 5 L nasal cannula the saturation in the mid 90s Bilateral pleural effusion Getting hemodialysis today CCU Objective - Vital Signs / Intake & Output Vital Signs (Last 4 hours): Vital Signs Temp Pulse Resp BP BP Pulse Ox 09/09/16 15:00 66 16 100 09/09/16 14:39 62 13 102/55 L 100 09/09/16 14:00 61 18 100 09/09/16 13:39 61 17 107/56 L 100 09/09/16 13:00 64 16 100 09/09/16 12:31 66 19 115/60 100 09/09/16 12:20 97.6 F 17 113/55 L 100 09/09/16 12:17 63 18 113/55 L 100 09/09/16 12:05 114/62 09/09/16 12:01 68 20 114/62 98 09/09/16 12:00 97.6 F 64 17 100 09/09/16 11:50 109/55 L 09/09/16 11:46 60 17 109/55 L 100 Intake and Output (Last 8hrs): Intake & Output 09/09/16 09/09/16 09/09/16 06:59 14:59 22:59 Intake Total 100 270 0 Balance 100 270 0 Weight 140 lb Intake: Intake, IV Amount 50 150 0 Left External Jugular 50 150 0 Oral 50 120 0 Other: # Bowel Movements 1 0 0 - Physical Exam Head: Positive for: Atraumatic, Normocephalic Pupils: Positive for: PERRL Extroacular Muscles: Positive for: EOMI Conjunctiva: Positive for: Normal. Negative for: Injected, Icteric Mouth: Positive for: Dry Pharnyx: Positive for: Normal Neck: Negative for: JVD, Lymphadenopathy Respiratory/Chest: Positive for: Decreased Breath Sounds, Other (tolerating NC 5L). Negative for: Wheezes, Rales, Rhonchi Cardiovascular: Positive for: Normal S1, S2, Irregular Rhythm. Negative for: Murmurs Abdomen: Positive for: Normal Bowel Sounds. Negative for: Tenderness, Distention Upper Extremity: Positive for: Normal Inspection. Negative for: Cyanosis, Edema Lower Extremity: Positive for: Normal Inspection. Negative for: Edema Neurological: Positive for: Motor Func Grossly Intact Skin: Positive for: Warm, Dry, Normal Color Psychiatric: Positive for: Alert - Medications Active Medications: Active Medications Generic Name Dose Route Start Last Admin Trade Name Freq PRN Reason Stop Dose Admin Acetaminophen 650 mg 09/04/16 20:01 09/08/16 06:07 Tylenol 650mg/20.3ml Solution Ud PO 650 mg Q4 PRN Administration Headache Albuterol/Ipratropium 3 ml 09/01/16 04:00 09/09/16 11:18 Duoneb 3 Mg/0.5 Mg (3 Ml) Ud INH Not Given RQ4 NEVAEH Amiodarone HCl 200 mg 09/01/16 10:00 09/09/16 09:17 Cordarone PO 200 mg DAILY N[facility]AEH Administration Clopidogrel Bisulfate 75 mg 09/01/16 10:00 09/07/16 10:26 Plavix PO Not Given DAILY NEVAEH Docusate Sodium 100 mg 09/01/16 01:47 09/04/16 11:08 Colace PO 100 mg BID PRN Administration Constipation Famotidine 20 mg 09/01/16 10:00 09/09/16 09:17 Pepcid PO 20 mg DAILY N[facility]AE[facility] Administration Folic Acid 1 mg 09/01/16 10:00 09/09/16 09:17 Folic Acid NG 1 mg DAILY N[facility]AE[facility] Administration Heparin Sodium (Porcine) 5,000 units 09/02/16 22:00 09/05/16 09:00 Heparin SC 5,000 units Q12 [facility] Administration Doxycycline Hyclate 100 mg/ 100 mls @ 100 mls/hr 09/02/16 23:30 09/09/16 12: 50 Sodium Chloride IVPB 100 mls/hr Q12H [facility] Administration Piperacillin Sod/Tazobactam Sod 2.25 gm in 50 mls @ 100 mls/hr 09/05/16 11:00 09/09/16 12:49 Zosyn 2.25 Gm Iv Premix IVPB 100 mls/hr Q6H [facility] Administration Metoprolol Tartrate 25 mg 09/01/16 10:00 09/09/16 11:51 Lopressor PO Not Given BID NEVAEH Midodrine 10 mg 09/04/16 14:00 09/09/16 13:01 Proamatine PO 10 mg TID NEVAEH Administration Oxycodone/Acetaminophen 1 tab 09/08/16 08:40 09/09/16 09:16 Percocet 5/325 Mg Tab PO 09/11/16 08:41 1 tab Q4H PRN Administration Pain, moderate (4-7) Potassium Phos/Sodium Phos 1 pkt 09/06/16 10:00 09/09/16 09:17 Neutra-Phos PO 1 pkt Q12H [facility] Administration - Patient Studies Lab Studies: Lab Studies 09/09/16 09/09/16 09/09/16 Range/Units 09:36 09:36 09:24 WBC (4.8-10.8) K/uL RBC (3.80-5.20) Mil/uL Hgb (11.0-16.0) g/dL Hct (34.0-47.0) % MCV (81.0-99.0) fL MCH (27.0-31.0) pg MCHC (33.0-37.0) g/dL RDW (11.5-14.5) % Plt Count (130-400) K/uL MPV (7.2-11.7) fL Neut % (Auto) (50.0-75.0) % Lymph % (Auto) (20.0-40.0) % [place] % (Auto) (0.0-10.0) % Eos % (Auto) (0.0-4.0) % Baso % (Auto) (0.0-2.0) % Neut # (1.8-7.0) K/uL Lymph # (1.0-4.3) K/uL [place] # (0.0-0.8) K/uL Eos # (0.0-0.7) K/uL Baso # (0.0-0.2) K/uL Fibrinogen 389 (200-400) mg/dL Plt Function Assay 56 K/uL Sodium 136 (132-148) mmol/L Potassium 4.9 (3.6-5.2) mmol/L Chloride 93 L (98-107) mmol/L Carbon Dioxide 22 (22-30) mmol/L Anion Gap 26 H (10-20) BUN 41 H (7-17) mg/dL Creatinine 2.8 H (0.7-1.2) MG/DL Est GFR ( Amer) 20 Est GFR (Non-Af Amer) 17 Random Glucose 74 (65-105) mg/dL Calcium 7.5 L (8.6-10.4) mg/dl Phosphorus (2.5-4.5) mg/dL Magnesium (1.6-2.3) mg/dL Total Bilirubin (0.2-1.3) mg/dL AST (14-36) U/L ALT (9-52) U/L Alkaline Phosphatase (38-126) U/L Total Protein (6.3-8.3) g/dL Albumin (3.5-5.0) g/dL Globulin (2.2-3.9) gm/dL Albumin/Globulin Ratio (1.0-2.1) 09/09/16/ Range/Units 06:17 06:17 WBC 3.3 L (4.8-10.8) K/uL RBC 2.49 L (3.80-5.20) Mil/uL Hgb 8.3 L (11.0-16.0) g/dL Hct 27.1 L (34.0-47.0) % MCV 108.8 H (81.0-99.0) fL MCH 33.6 H (27.0-31.0) pg MCHC 30.9 L (33.0-37.0) g/dL RDW 17.7 H (11.5-14.5) % Plt Count 62 L D (130-400) K/uL MPV 11.2 (7.2-11.7) fL Neut % (Auto) 70.7 (50.0-75.0) % Lymph % (Auto) 14.5 L (20.0-40.0) % [place] % (Auto) 11.9 H (0.0-10.0) % Eos % (Auto) 1.9 (0.0-4.0) % Baso % (Auto) 1.0 (0.0-2.0) % Neut # 2.4 (1.8-7.0) K/uL Lymph # 0.5 L (1.0-4.3) K/uL [place] # 0.4 (0.0-0.8) K/uL Eos # 0.1 (0.0-0.7) K/uL Baso # 0.0 (0.0-0.2) K/uL Fibrinogen (200-400) mg/dL Plt Function Assay K/uL Sodium 134 (132-148) mmol/L Potassium 4.9 (3.6-5.2) mmol/L Chloride 91 L (98-107) mmol/L Carbon Dioxide 25 (22-30) mmol/L Anion Gap 23 H (10-20) BUN 38 H (7-17) mg/dL Creatinine 2.7 H (0.7-1.2) MG/DL Est GFR ( Amer) 21 Est GFR (Non-Af Amer) 18 Random Glucose 65 (65-105) mg/dL Calcium 7.6 L (8.6-10.4) mg/dl Phosphorus 4.4 (2.5-4.5) mg/dL Magnesium 1.9 (1.6-2.3) mg/dL Total Bilirubin 1.0 (0.2-1.3) mg/dL AST 17 (14-36) U/L ALT 8 L D (9-52) U/L Alkaline Phosphatase 115 (38-126) U/L Total Protein 8.7 H (6.3-8.3) g/dL Albumin 4.1 (3.5-5.0) g/dL Globulin 4.5 H (2.2-3.9) gm/dL Albumin/Globulin Ratio 0.9 L (1.0-2.1) Laboratory Results - last 24 hr 09/09/16 09/09/16 09/09/16 06:17 06:17 09:24 WBC 3.3 L RBC 2.49 L Hgb 8.3 L Hct 27.1 L MCV 108.8 H MCH 33.6 H MCHC 30.9 L RDW 17.7 H Plt Count 62 L D MPV 11.2 Neut % (Auto) 70.7 Lymph % (Auto) 14.5 L [place] % (Auto) 11.9 H Eos % (Auto) 1.9 Baso % (Auto) 1.0 Neut # 2.4 Lymph # 0.5 L [place] # 0.4 Eos # 0.1 Baso # 0.0 Fibrinogen Plt Function Assay 56 Sodium 134 Potassium 4.9 Chloride 91 L Carbon Dioxide 25 Anion Gap 23 H BUN 38 H Creatinine 2.7 H Est GFR ( Amer) 21 Est GFR (Non-Af Amer) 18 Random Glucose 65 Calcium 7.6 L Phosphorus 4.4 Magnesium 1.9 Total Bilirubin 1.0 AST 17 ALT 8 L D Alkaline Phosphatase 115 Total Protein 8.7 H Albumin 4.1 Globulin 4.5 H Albumin/Globulin Ratio 0.9 L 09/09/16 09/09/16 09:36 09:36 WBC RBC Hgb Hct MCV MCH MCHC RDW Plt Count MPV Neut % (Auto) Lymph % (Auto) [place] % (Auto) Eos % (Auto) Baso % (Auto) Neut # Lymph # [place] # Eos # Baso # Fibrinogen 389 Plt Function Assay Sodium 136 Potassium 4.9 Chloride 93 L Carbon Dioxide 22 Anion Gap 26 H BUN 41 H Creatinine 2.8 H Est GFR ( Amer) 20 Est GFR (Non-Af Amer) 17 Random Glucose 74 Calcium 7.5 L Phosphorus Magnesium Total Bilirubin AST ALT Alkaline Phosphatase Total Protein Albumin Globulin Albumin/Globulin Ratio Critical Care Progress Note - Nutrition Nutrition: Nutrition Category Date Time Status Dysphagia/Modified Consistency Diet [DIET] Diets 09/08/16 Dinner Active Assessment/Plan (1) Pleural effusion Current Visit: No Status: Acute Comment: bilateral pleural effusio For thoracentesis Continue aggressive hemodialysis On 5 L with saturation in the mid 90s Continue present treatment (2) Thrombocytopenia Current Visit: Yes Status: Acute (3) ESRD (end stage renal disease) on dialysis Current Visit: Yes Status: Acute
[2016-09-10] MEDS: Albuterol-Ipratrop 3 mg / 0.5 (3 ml) UD INH SCH ×6 (00:14→20:03)
[2016-09-10] MEDS: Piperacill/Tazo 2.25gm in Dex 2.25 GM/50 ML BAG IVPB SCH ×4 (05:30→22:00)
[2016-09-10 06:56] LABS: BASO # 0.1 K/uL (0.0-0.2); EOS % 1.4 % (0.0-4.0); HEMOGLOBIN 8.9 g/dL (11.0-16.0); LYMPH # 0.5 K/uL (1.0-4.3); MEAN CELL VOLUME 107.1 fL (81.0-99.0); MEAN CORPUSCULAR HEMOGLOBIN 33.3 pg (27.0-31.0); MEAN CORPUSCULAR HGB CONC 31.1 g/dL (33.0-37.0); MEAN PLATELET VOLUME 9.9 fL (7.2-11.7); MONO # 0.3 K/uL (0.0-0.8); MONO % 10.2 % (0.0-10.0); NEUT % 68.4 % (50.0-75.0); RBC 2.67 Mil/uL (3.80-5.20); RED CELL DISTRIBUTION WIDTH 17.3 % (11.5-14.5); WHITE BLOOD COUNT 2.9 K/uL (4.8-10.8)
[2016-09-10 07:04] LABS: ALBUMIN 4.1 g/dL (3.5-5.0)
[2016-09-10 07:08] LABS: CALCIUM 7.8 mg/dl (8.6-10.4)
[2016-09-10 07:13] LABS: ALB/GLOB RATIO 0.9 (1.0-2.1)
[2016-09-10] MEDS: Oxycodone/Acetaminophen 5/325 mg Tab PO PRN ×3 (07:52→22:39)
--- NOTE | 2016-09-10 08:19 | CP.CCUPN ---
CCU Subjective - Physician Review Events Since Last Encounter (Free Text): 09/10/16 08:19 66-year-old female with a history of hypertension, systemic sclerosis, end- stage renal disease on dialysis, COPD and asthma admitted to the hospital with acute respiratory failure extubated recently. Patient is currently awake and responding. No cough noted. Currently using only 4 L of nasal cannula saturation is 100%. Exertional dyspnea noted. Complaining of general is to body pain, back pain. Patient is sitting hemodialysis yesterday. No nausea vomiting noted, poor intake noted. On examination: Vital sensitivity Chest bilateral diffuse wheezing noted, but better than yesterday. Regular heart sound noted, no pedal edema. Significant skin changes secondary to systemic sclerosis noted Right arm AV shunt noted for dialysis. Labs reviewed Chest x-ray showing evidence of increasing densities, but clinically patient is looking better Assessment and recommendation: 66-year-old female with a history of atrial fibrillation, hypertension, osteoporosis, pancreatitis, systemic sclerosis, congestive heart failure, severe degenerative disc disease, acute respiratory failure, extubated. Currently doing well. We will continue the current treatment. Physical therapy advised. Pain management. Out of bed to chair. Patient is clinical stable for discharge to floor. CCU Objective - Vital Signs / Intake & Output Vital Signs (Last 4 hours): Vital Signs Pulse Resp BP Pulse Ox 09/10/16 07:00 60 19 100 09/10/16 05:40 61 16 128/54 L 100 09/10/16 04:40 62 17 121/62 100 Intake and Output (Last 8hrs): Intake & Output 09/09/16 09/10/16 09/10/16 22:59 06:59 14:59 Intake Total 270 300 0 Balance 270 300 0 Intake: Intake, IV Amount 50 200 0 Left External Jugular 50 200 0 Oral 220 100 0 Other: # Bowel Movements 0 0 - Physical Exam Head: Positive for: Atraumatic, Normocephalic Pupils: Positive for: PERRL Extroacular Muscles: Positive for: EOMI Conjunctiva: Positive for: Normal. Negative for: Injected, Icteric Mouth: Positive for: Dry Pharnyx: Positive for: Normal Neck: Negative for: JVD, Lymphadenopathy Respiratory/Chest: Positive for: Decreased Breath Sounds, Other (tolerating NC 5L). Negative for: Wheezes, Rales, Rhonchi Cardiovascular: Positive for: Normal S1, S2, Irregular Rhythm. Negative for: Murmurs Abdomen: Positive for: Normal Bowel Sounds. Negative for: Tenderness, Distention Upper Extremity: Positive for: Normal Inspection. Negative for: Cyanosis, Edema Lower Extremity: Positive for: Normal Inspection. Negative for: Edema Neurological: Positive for: Motor Func Grossly Intact Skin: Positive for: Warm, Dry, Normal Color Psychiatric: Positive for: Alert - Medications Active Medications: Active Medications Generic Name Dose Route Start Last Admin Trade Name Freq PRN Reason Stop Dose Admin Acetaminophen 650 mg 09/04/16 20:01 09/08/16 06:07 Tylenol 650mg/20.3ml Solution Ud PO 650 mg Q4 PRN Administration Headache Albuterol/Ipratropium 3 ml 09/01/16 04:00 09/10/16 07:46 Duoneb 3 Mg/0.5 Mg (3 Ml) Ud INH 3 ml RQ4 [facility] Administration Amiodarone HCl 200 mg 09/01/16 10:00 09/09/16 09:17 Cordarone PO 200 mg DAILY [facility]AE[facility] Administration Clopidogrel Bisulfate 75 mg 09/01/16 10:00 09/07/16 10:26 Plavix PO Not Given DAILY NEVAEH Docusate Sodium 100 mg 09/01/16 01:47 09/04/16 11:08 Colace PO 100 mg BID PRN Administration Constipation Famotidine 20 mg 09/01/16 10:00 09/09/16 09:17 Pepcid PO 20 mg DAILY [facility] Administration Folic Acid 1 mg 09/01/16 10:00 09/09/16 09:17 Folic Acid NG 1 mg DAILY [facility]AE[facility] Administration Heparin Sodium (Porcine) 5,000 units 09/02/16 22:00 09/05/16 09:00 Heparin SC 5,000 units Q12 [facility] Administration Doxycycline Hyclate 100 mg/ 100 mls @ 100 mls/hr 09/02/16 23:30 09/09/16 23: 35 Sodium Chloride IVPB 100 mls/hr Q12H [facility] Administration Piperacillin Sod/Tazobactam Sod 2.25 gm in 50 mls @ 100 mls/hr 09/05/16 11:00 09/10/16 05:30 Zosyn 2.25 Gm Iv Premix IVPB 100 mls/hr Q6H [facility] Administration Midodrine 10 mg 09/04/16 14:00 09/09/16 17:55 Proamatine PO 10 mg TID NEVAEH Administration Oxycodone/Acetaminophen 1 tab 09/08/16 08:40 09/10/16 07:52 Percocet 5/325 Mg Tab PO 09/11/16 08:41 1 tab Q4H PRN Administration Pain, moderate (4-7) Potassium Phos/Sodium Phos 1 pkt 09/06/16 10:00 09/09/16 23:06 Neutra-Phos PO 1 pkt Q12H [facility] Administration - Patient Studies Lab Studies: Lab Studies 09/10/16 09/10/16 09/09/16 Range/Units 06:53 06:53 09:36 WBC 2.9 L (4.8-10.8) K/uL RBC 2.67 L (3.80-5.20) Mil/uL Hgb 8.9 L (11.0-16.0) g/dL Hct 28.6 L (34.0-47.0) % MCV 107.1 H (81.0-99.0) fL MCH 33.3 H (27.0-31.0) pg MCHC 31.1 L (33.0-37.0) g/dL RDW 17.3 H (11.5-14.5) % Plt Count 92 L D (130-400) K/uL MPV 9.9 (7.2-11.7) fL Neut % (Auto) 68.4 (50.0-75.0) % Lymph % (Auto) 18.0 L (20.0-40.0) % Ness % (Auto) 10.2 H (0.0-10.0) % Eos % (Auto) 1.4 (0.0-4.0) % Baso % (Auto) 2.0 (0.0-2.0) % Neut # 2.0 (1.8-7.0) K/uL Lymph # 0.5 L (1.0-4.3) K/uL Ness # 0.3 (0.0-0.8) K/uL Eos # 0.0 (0.0-0.7) K/uL Baso # 0.1 (0.0-0.2) K/uL Fibrinogen (200-400) mg/dL Plt Function Assay K/uL Sodium 137 136 (132-148) mmol/L Potassium 4.2 4.9 (3.6-5.2) mmol/L Chloride 94 L 93 L (98-107) mmol/L Carbon Dioxide 24 22 (22-30) mmol/L Anion Gap 23 H 26 H (10-20) BUN 24 H 41 H (7-17) mg/dL Creatinine 2.2 H 2.8 H (0.7-1.2) MG/DL Est GFR ( Amer) 27 20 Est GFR (Non-Af Amer) 22 17 Random Glucose 63 L 74 (65-105) mg/dL Calcium 7.8 L 7.5 L (8.6-10.4) mg/dl Phosphorus 4.0 (2.5-4.5) mg/dL Magnesium 2.0 (1.6-2.3) mg/dL Total Bilirubin 1.2 (0.2-1.3) mg/dL AST 22 (14-36) U/L ALT 10 (9-52) U/L Alkaline Phosphatase 105 (38-126) U/L Total Protein 8.9 H (6.3-8.3) g/dL Total Protein (PEP) (6.1-8.1) g/dL Albumin 4.1 (3.5-5.0) g/dL Globulin 4.8 H (2.2-3.9) gm/dL Albumin/Globulin Ratio 0.9 L (1.0-2.1) 09/09/16 09/09/16 09/09/16 Range/Units 09:36 09:36 09:24 WBC (4.8-10.8) K/uL RBC (3.80-5.20) Mil/uL Hgb (11.0-16.0) g/dL Hct (34.0-47.0) % MCV (81.0-99.0) fL MCH (27.0-31.0) pg MCHC (33.0-37.0) g/dL RDW (11.5-14.5) % Plt Count (130-400) K/uL MPV (7.2-11.7) fL Neut % (Auto) (50.0-75.0) % Lymph % (Auto) (20.0-40.0) % [place] % (Auto) (0.0-10.0) % Eos % (Auto) (0.0-4.0) % Baso % (Auto) (0.0-2.0) % Neut # (1.8-7.0) K/uL Lymph # (1.0-4.3) K/uL Ness # (0.0-0.8) K/uL Eos # (0.0-0.7) K/uL Baso # (0.0-0.2) K/uL Fibrinogen 389 (200-400) mg/dL Plt Function Assay 56 K/uL Sodium (132-148) mmol/L Potassium (3.6-5.2) mmol/L Chloride (98-107) mmol/L Carbon Dioxide (22-30) mmol/L Anion Gap (10-20) BUN (7-17) mg/dL Creatinine (0.7-1.2) MG/DL Est GFR ( Amer) Est GFR (Non-Af Amer) Random Glucose (65-105) mg/dL Calcium (8.6-10.4) mg/dl Phosphorus (2.5-4.5) mg/dL Magnesium (1.6-2.3) mg/dL Total Bilirubin (0.2-1.3) mg/dL AST (14-36) U/L ALT (9-52) U/L Alkaline Phosphatase (38-126) U/L Total Protein (6.3-8.3) g/dL Total Protein (PEP) 8.4 H (6.1-8.1) g/dL Albumin (3.5-5.0) g/dL Globulin (2.2-3.9) gm/dL Albumin/Globulin Ratio (1.0-2.1) Laboratory Results - last 24 hr 09/09/16 09/09/16 09/09/16 09:24 09:36 09:36 WBC RBC Hgb Hct MCV MCH MCHC RDW Plt Count MPV Neut % (Auto) Lymph % (Auto) [place]ess % (Auto) Eos % (Auto) Baso % (Auto) Neut # Lymph # Ness # Eos # Baso # Fibrinogen 389 Plt Function Assay 56 Sodium Potassium Chloride Carbon Dioxide Anion Gap BUN Creatinine Est GFR ( Amer) Est GFR (Non-Af Amer) Random Glucose Calcium Phosphorus Magnesium Total Bilirubin AST ALT Alkaline Phosphatase Total Protein Total Protein (PEP) 8.4 H Albumin Globulin Albumin/Globulin Ratio 09/09/16 09/10/16 09/10/16 09:36 06:53 06:53 WBC 2.9 L RBC 2.67 L Hgb 8.9 L Hct 28.6 L MCV 107.1 H MCH 33.3 H MCHC 31.1 L RDW 17.3 H Plt Count 92 L D MPV 9.9 Neut % (Auto) 68.4 Lymph % (Auto) 18.0 L [place]ess % (Auto) 10.2 H Eos % (Auto) 1.4 Baso % (Auto) 2.0 Neut # 2.0 Lymph # 0.5 L Ness # 0.3 Eos # 0.0 Baso # 0.1 Fibrinogen Plt Function Assay Sodium 136 137 Potassium 4.9 4.2 Chloride 93 L 94 L Carbon Dioxide 22 24 Anion Gap 26 H 23 H BUN 41 H 24 H Creatinine 2.8 H 2.2 H Est GFR ( Amer) 20 27 Est GFR (Non-Af Amer) 17 22 Random Glucose 74 63 L Calcium 7.5 L 7.8 L Phosphorus 4.0 Magnesium 2.0 Total Bilirubin 1.2 AST 22 ALT 10 Alkaline Phosphatase 105 Total Protein 8.9 H Total Protein (PEP) Albumin 4.1 Globulin 4.8 H Albumin/Globulin Ratio 0.9 L Critical Care Progress Note - Nutrition Nutrition: Nutrition Category Date Time Status Dysphagia/Modified Consistency Diet [DIET] Diets 09/08/16 Dinner Active
[2016-09-10] MEDS: Potassium & Sodium Phosphate PO SCH ×2 (09:21→21:50)
--- NOTE | 2016-09-10 11:59 | RAD ---
PROCEDURE: CHEST RADIOGRAPH, 1 VIEW HISTORY: R/O plural effusions COMPARISON: 09/06/2016 FINDINGS: LUNGS: Extensive bilateral opacity, left greater than right. This may be due in part to dependent pleural fluid but suspect also parenchymal infiltrate. PLEURA: Bilateral pleural effusion, left greater than right. CARDIOVASCULAR: Mild cardiomegaly. Permanent pacemaker. OSSEOUS STRUCTURES: No significant abnormalities. VISUALIZED UPPER ABDOMEN: Normal. OTHER FINDINGS: None. IMPRESSION: Bilateral pleural effusion increased from prior examination. Bilateral parenchymal opacities are suspected. Pulmonary edema versus bilateral pneumonia.
--- NOTE | 2016-09-10 11:59 | CP.PCM.PN ---
Subjective - Date & Time of Evaluation Date of Evaluation: 09/09/16 Time of Evaluation: 20:00 - Subjective Subjective: Feels short of breath Objective - Vital Signs/Intake and Output Vital Signs (last 24 hours): Temp Pulse Resp BP Pulse Ox 97.8 F 71 24 136/73 100 09/10/16 08:00 09/10/16 10:07 09/10/16 10:07 09/10/16 10:07 09/10/16 10:07 Intake and Output: 09/10/16 09/10/16 06:59 18:59 Intake Total 400 200 Balance 400 200 - Medications Medications: Current Medications Acetaminophen (Tylenol 650mg/20.3ml Solution Ud) 650 mg PO Q4 PRN PRN Reason: Headache Last Admin: 09/08/16 06:07 Dose: 650 mg Albuterol/Ipratropium (Duoneb 3 Mg/0.5 Mg (3 Ml) Ud) 3 ml INH RQ4 [facility] Last Admin: 09/10/16 07:46 Dose: 3 ml Amiodarone HCl (Cordarone) 200 mg PO DAILY [facility] Last Admin: 09/10/16 09:21 Dose: 200 mg Clopidogrel Bisulfate (Plavix) 75 mg PO DAILY [facility] Last Admin: 09/07/16 10:26 Dose: Not Given Docusate Sodium (Colace) 100 mg PO BID PRN PRN Reason: Constipation Last Admin: 09/04/16 11:08 Dose: 100 mg Famotidine (Pepcid) 20 mg PO DAILY [facility] Last Admin: 09/10/16 09:21 Dose: 20 mg Folic Acid (Folic Acid) 1 mg NG DAILY [facility] Last Admin: 09/10/16 09:21 Dose: 1 mg Heparin Sodium (Porcine) (Heparin) 5,000 units SC Q12 [facility] Last Admin: 09/05/16 09:00 Dose: 5,000 units Doxycycline Hyclate 100 mg/ (Sodium Chloride) 100 mls @ 100 mls/hr IVPB Q12H [facility] Last Admin: 09/10/16 11:22 Dose: 100 mls/hr Piperacillin Sod/Tazobactam Sod (Zosyn 2.25 Gm Iv Premix) 2.25 gm in 50 mls @ 100 mls/hr IVPB Q6H [facility] Last Admin: 09/10/16 11:22 Dose: 100 mls/hr Midodrine (Proamatine) 10 mg PO TID [facility] Last Admin: 09/10/16 09:21 Dose: 10 mg Oxycodone/Acetaminophen (Percocet 5/325 Mg Tab) 1 tab PO Q4H PRN PRN Reason: Pain, moderate (4-7) Stop: 09/11/16 08:41 Last Admin: 09/10/16 07:52 Dose: 1 tab Potassium Phos/Sodium Phos (Neutra-Phos) 1 pkt PO Q12H [facility] Last Admin: 09/10/16 09:21 Dose: 1 pkt - Labs Labs: 09/10/16 06:53 09/10/16 06:53 PT 13.1 SECONDS (9.7-12.2) H 09/08/16 07:28 INR 1.1 09/08/16 07:28 APTT 36 SECONDS (21-34) H D 09/08/16 07:28 - Head Exam Head Exam: ATRAUMATIC - Eye Exam Eye Exam: Normal appearance - ENT Exam ENT Exam: Mucous Membranes Dry - Respiratory Exam Respiratory Exam: Decreased Breath Sounds - Cardiovascular Exam Cardiovascular Exam: +S1, +S2 - GI/Abdominal Exam GI & Abdominal Exam: Normal Bowel Sounds - Extremities Exam Extremities Exam: Pedal Edema Assessment and Plan (1) Pancytopenia Assessment & Plan: will discuss bone marrow evaluation when more stable Status: Acute (2) Coagulopathy Assessment & Plan: nutritional Status: Acute (3) Elevated serum globulin level Assessment & Plan: rule out monoclonal protein. Status: Acute
--- NOTE | 2016-09-10 15:43 | CP.PCM.PN ---
Subjective - Date & Time of Evaluation Date of Evaluation: 09/10/16 Objective - Vital Signs/Intake and Output Vital Signs (last 24 hours): Temp Pulse Resp BP Pulse Ox 97.9 F 60 14 101/57 L 100 09/10/16 12:00 09/10/16 13:00 09/10/16 13:00 09/10/16 12:40 09/10/16 13:00 Intake and Output: 09/10/16 09/10/16 06:59 18:59 Intake Total 400 350 Balance 400 350 - Medications Medications: Current Medications Acetaminophen (Tylenol 650mg/20.3ml Solution Ud) 650 mg PO Q4 PRN PRN Reason: Headache Last Admin: 09/08/16 06:07 Dose: 650 mg Albuterol/Ipratropium (Duoneb 3 Mg/0.5 Mg (3 Ml) Ud) 3 ml INH RQ4 [facility] Last Admin: 09/10/16 11:47 Dose: 3 ml Amiodarone HCl (Cordarone) 200 mg PO DAILY [facility] Last Admin: 09/10/16 09:21 Dose: 200 mg Clopidogrel Bisulfate (Plavix) 75 mg PO DAILY [facility] Last Admin: 09/07/16 10:26 Dose: Not Given Docusate Sodium (Colace) 100 mg PO BID PRN PRN Reason: Constipation Last Admin: 09/04/16 11:08 Dose: 100 mg Famotidine (Pepcid) 20 mg PO DAILY [facility] Last Admin: 09/10/16 09:21 Dose: 20 mg Folic Acid (Folic Acid) 1 mg NG DAILY [facility] Last Admin: 09/10/16 09:21 Dose: 1 mg Heparin Sodium (Porcine) (Heparin) 5,000 units SC Q12 [facility] Last Admin: 09/05/16 09:00 Dose: 5,000 units Doxycycline Hyclate 100 mg/ (Sodium Chloride) 100 mls @ 100 mls/hr IVPB Q12H [facility] Last Admin: 09/10/16 11:22 Dose: 100 mls/hr Piperacillin Sod/Tazobactam Sod (Zosyn 2.25 Gm Iv Premix) 2.25 gm in 50 mls @ 100 mls/hr IVPB Q6H [facility] Last Admin: 09/10/16 11:22 Dose: 100 mls/hr Midodrine (Proamatine) 10 mg PO TID [facility] Last Admin: 09/10/16 13:37 Dose: 10 mg Oxycodone/Acetaminophen (Percocet 5/325 Mg Tab) 1 tab PO Q4H PRN PRN Reason: Pain, moderate (4-7) Stop: 09/11/16 08:41 Last Admin: 09/10/16 14:49 Dose: 1 tab Potassium Phos/Sodium Phos (Neutra-Phos) 1 pkt PO Q12H [facility] Last Admin: 09/10/16 09:21 Dose: 1 pkt - Labs Labs: 09/10/16 06:53 09/10/16 06:53 PT 13.1 SECONDS (9.7-12.2) H 09/08/16 07:28 INR 1.1 09/08/16 07:28 APTT 36 SECONDS (21-34) H D 09/08/16 07:28
[2016-09-11] MEDS: Albuterol-Ipratrop 3 mg / 0.5 (3 ml) UD INH SCH ×7 (00:20→23:48)
[2016-09-11] MEDS: Piperacill/Tazo 2.25gm in Dex 2.25 GM/50 ML BAG IVPB SCH ×4 (04:27→22:30)
[2016-09-11] MEDS: Oxycodone/Acetaminophen 5/325 mg Tab PO PRN ×3 (04:30→13:34)
[2016-09-11] MEDS: Potassium & Sodium Phosphate PO SCH ×2 (09:09→22:30)
--- NOTE | 2016-09-11 09:54 | CP.PCM.PN ---
Subjective - Date & Time of Evaluation Date of Evaluation: 09/11/16 Time of Evaluation: 13:00 - Subjective Subjective: clinically same Objective - Vital Signs/Intake and Output Vital Signs (last 24 hours): Temp Pulse Resp BP Pulse Ox 98.1 F 63 17 105/54 L 100 09/11/16 04:00 09/11/16 08:00 09/11/16 08:00 09/11/16 08:00 09/11/16 08:00 Intake and Output: 09/11/16 09/11/16 06:59 18:59 Intake Total 440 Output Total 200 Balance 240 - Medications Medications: Current Medications Acetaminophen (Tylenol 650mg/20.3ml Solution Ud) 650 mg PO Q4 PRN PRN Reason: Headache Last Admin: 09/08/16 06:07 Dose: 650 mg Albuterol/Ipratropium (Duoneb 3 Mg/0.5 Mg (3 Ml) Ud) 3 ml INH RQ4 [facility] Last Admin: 09/11/16 08:58 Dose: 3 ml Amiodarone HCl (Cordarone) 200 mg PO DAILY [facility] Last Admin: 09/11/16 09:06 Dose: 200 mg Clopidogrel Bisulfate (Plavix) 75 mg PO DAILY [facility] Last Admin: 09/07/16 10:26 Dose: Not Given Docusate Sodium (Colace) 100 mg PO BID PRN PRN Reason: Constipation Last Admin: 09/04/16 11:08 Dose: 100 mg Famotidine (Pepcid) 20 mg PO DAILY [facility] Last Admin: 09/11/16 09:08 Dose: 20 mg Folic Acid (Folic Acid) 1 mg NG DAILY [facility] Last Admin: 09/11/16 09:08 Dose: 1 mg Heparin Sodium (Porcine) (Heparin) 5,000 units SC Q12 [facility] Last Admin: 09/05/16 09:00 Dose: 5,000 units Doxycycline Hyclate 100 mg/ (Sodium Chloride) 100 mls @ 100 mls/hr IVPB Q12H [facility] Last Admin: 09/10/16 22:44 Dose: 100 mls/hr Piperacillin Sod/Tazobactam Sod (Zosyn 2.25 Gm Iv Premix) 2.25 gm in 50 mls @ 100 mls/hr IVPB Q6H [facility] Last Admin: 09/11/16 04:27 Dose: 100 mls/hr Midodrine (Proamatine) 10 mg PO TID [facility] Last Admin: 09/11/16 09:06 Dose: 10 mg Oxycodone/Acetaminophen (Percocet 5/325 Mg Tab) 1 tab PO Q4H PRN PRN Reason: Pain, moderate (4-7) Stop: 09/14/16 09:35 Potassium Phos/Sodium Phos (Neutra-Phos) 1 pkt PO Q12H [facility] Last Admin: 09/11/16 09:09 Dose: 1 pkt - Labs Labs: 09/10/16 06:53 09/10/16 06:53 PT 13.1 SECONDS (9.7-12.2) H 09/08/16 07:28 INR 1.1 09/08/16 07:28 APTT 36 SECONDS (21-34) H D 09/08/16 07:28 - Constitutional Appears: Well - Head Exam Head Exam: ATRAUMATIC, NORMAL INSPECTION, NORMOCEPHALIC - Eye Exam Eye Exam: EOMI, Normal appearance, PERRL Pupil Exam: NORMAL ACCOMODATION, PERRL - ENT Exam ENT Exam: Mucous Membranes Moist, Normal Exam - Neck Exam Neck Exam: Full ROM, Normal Inspection. absent: Lymphadenopathy - Respiratory Exam Respiratory Exam: Decreased Breath Sounds - Cardiovascular Exam Cardiovascular Exam: REGULAR RHYTHM, +S1, +S2 - GI/Abdominal Exam GI & Abdominal Exam: Soft, Diminished Bowel Sounds - Rectal Exam Rectal Exam: Deferred
--- NOTE | 2016-09-11 11:30 | CP.PCM.PN ---
Subjective - Date & Time of Evaluation Date of Evaluation: 09/11/16 Time of Evaluation: 11:28 - Subjective Subjective: Doing better Not dyspneic now Last HD 09/09 Off vent; rate controlled No n, v, SOB, CPs Objective - Vital Signs/Intake and Output Vital Signs (last 24 hours): Temp Pulse Resp BP Pulse Ox 98.4 F 62 19 107/56 L 98 09/11/16 08:00 09/11/16 11:00 09/11/16 11:00 09/11/16 11:00 09/11/16 11:00 Intake and Output: 09/11/16 09/11/16 06:59 18:59 Intake Total 440 450 Output Total 200 Balance 240 450 - Medications Medications: Current Medications Acetaminophen (Tylenol 650mg/20.3ml Solution Ud) 650 mg PO Q4 PRN PRN Reason: Headache Last Admin: 09/08/16 06:07 Dose: 650 mg Albuterol/Ipratropium (Duoneb 3 Mg/0.5 Mg (3 Ml) Ud) 3 ml INH RQ4 [facility] Last Admin: 09/11/16 08:58 Dose: 3 ml Amiodarone HCl (Cordarone) 200 mg PO DAILY [facility] Last Admin: 09/11/16 09:06 Dose: 200 mg Clopidogrel Bisulfate (Plavix) 75 mg PO DAILY [facility] Last Admin: 09/07/16 10:26 Dose: Not Given Docusate Sodium (Colace) 100 mg PO BID PRN PRN Reason: Constipation Last Admin: 09/04/16 11:08 Dose: 100 mg Famotidine (Pepcid) 20 mg PO DAILY [facility] Last Admin: 09/11/16 09:08 Dose: 20 mg Folic Acid (Folic Acid) 1 mg NG DAILY [facility] Last Admin: 09/11/16 09:08 Dose: 1 mg Heparin Sodium (Porcine) (Heparin) 5,000 units SC Q12 [facility] Last Admin: 09/05/16 09:00 Dose: 5,000 units Doxycycline Hyclate 100 mg/ (Sodium Chloride) 100 mls @ 100 mls/hr IVPB Q12H [facility] Last Admin: 09/11/16 10:57 Dose: 100 mls/hr Piperacillin Sod/Tazobactam Sod (Zosyn 2.25 Gm Iv Premix) 2.25 gm in 50 mls @ 100 mls/hr IVPB Q6H [facility] Last Admin: 09/11/16 10:56 Dose: 100 mls/hr Midodrine (Proamatine) 10 mg PO TID [facility] Last Admin: 09/11/16 09:06 Dose: 10 mg Oxycodone/Acetaminophen (Percocet 5/325 Mg Tab) 1 tab PO Q4H PRN PRN Reason: Pain, moderate (4-7) Stop: 09/14/16 09:35 Potassium Phos/Sodium Phos (Neutra-Phos) 1 pkt PO Q12H [facility] Last Admin: 09/11/16 09:09 Dose: 1 pkt - Labs Labs: 09/10/16 06:53 09/10/16 06:53 PT 13.1 SECONDS (9.7-12.2) H 09/08/16 07:28 INR 1.1 09/08/16 07:28 APTT 36 SECONDS (21-34) H D 09/08/16 07:28 - Constitutional Appears: Confused, Chronically Ill - Head Exam Head Exam: ATRAUMATIC, NORMAL INSPECTION - Eye Exam Eye Exam: EOMI, Normal appearance - Neck Exam Neck Exam: Normal Inspection. absent: Tenderness - Respiratory Exam Respiratory Exam: Clear to Ausculation Bilateral, NORMAL BREATHING PATTERN - Cardiovascular Exam Cardiovascular Exam: Bradycardia, +S1 - GI/Abdominal Exam GI & Abdominal Exam: Soft. absent: Tenderness - Extremities Exam Extremities Exam: Normal Inspection, Tenderness - Neurological Exam Neurological Exam: Awake, CN II-XII Intact - Skin Skin Exam: Dry, Warm Assessment and Plan (1) CHF (congestive heart failure) Status: Acute (2) ESRD (end stage renal disease) on dialysis Status: Acute (3) Thrombocytopenia Status: Acute (4) Atrial fibrillation Status: Acute (5) COPD (chronic obstructive pulmonary disease) Status: Acute (6) Fibrosing dermatitis Status: Acute - Assessment and Plan (Free Text) Plan: Continue HD TTS Adequate UF ICU care
[2016-09-11 12:28] LABS: ALBUMIN (PEP) 4.2 g/dL (3.8-4.8); ALPHA-1-GLOBULIN (PEP) 0.5 g/dL (0.2-0.3)
[2016-09-12] MEDS: Oxycodone/Acetaminophen 5/325 mg Tab PO PRN ×5 (00:12→21:14)
[2016-09-12] MEDS: Albuterol-Ipratrop 3 mg / 0.5 (3 ml) UD INH SCH ×6 (03:09→23:41)
[2016-09-12] MEDS: Piperacill/Tazo 2.25gm in Dex 2.25 GM/50 ML BAG IVPB SCH ×4 (05:00→23:06)
[2016-09-12] MEDS: Potassium & Sodium Phosphate PO SCH ×2 (09:40→21:06)
--- NOTE | 2016-09-12 11:08 | CP.PCM.PN ---
Subjective - Date & Time of Evaluation Date of Evaluation: 09/12/16 Time of Evaluation: 11:07 - Subjective Subjective: seen in icu stable, off vent hd today elevated kappa and lambda light chains Objective - Vital Signs/Intake and Output Vital Signs (last 24 hours): Temp Pulse Resp BP Pulse Ox 97.4 F L 60 20 138/60 95 09/12/16 06:00 09/12/16 08:00 09/12/16 08:00 09/12/16 08:00 09/12/16 08:00 Intake and Output: 09/12/16 09/12/16 06:59 18:59 Intake Total 60 Balance 60 - Medications Medications: Current Medications Acetaminophen (Tylenol 650mg/20.3ml Solution Ud) 650 mg PO Q4 PRN PRN Reason: Headache Last Admin: 09/08/16 06:07 Dose: 650 mg Albuterol/Ipratropium (Duoneb 3 Mg/0.5 Mg (3 Ml) Ud) 3 ml INH RQ4 [facility] Last Admin: 09/12/16 08:50 Dose: 3 ml Amiodarone HCl (Cordarone) 200 mg PO DAILY [facility] Last Admin: 09/12/16 09:40 Dose: 200 mg Clopidogrel Bisulfate (Plavix) 75 mg PO DAILY [facility] Last Admin: 09/07/16 10:26 Dose: Not Given Docusate Sodium (Colace) 100 mg PO BID PRN PRN Reason: Constipation Last Admin: 09/04/16 11:08 Dose: 100 mg Famotidine (Pepcid) 20 mg PO DAILY [facility] Last Admin: 09/12/16 09:40 Dose: 20 mg Folic Acid (Folic Acid) 1 mg NG DAILY [facility] Last Admin: 09/12/16 09:40 Dose: 1 mg Heparin Sodium (Porcine) (Heparin) 5,000 units SC Q12 [facility] Last Admin: 09/05/16 09:00 Dose: 5,000 units Doxycycline Hyclate 100 mg/ (Sodium Chloride) 100 mls @ 100 mls/hr IVPB Q12H [facility] Last Admin: 09/12/16 10:33 Dose: 100 mls/hr Piperacillin Sod/Tazobactam Sod (Zosyn 2.25 Gm Iv Premix) 2.25 gm in 50 mls @ 100 mls/hr IVPB Q6H [facility] Last Admin: 09/12/16 10:26 Dose: 100 mls/hr Midodrine (Proamatine) 10 mg PO TID [facility] Last Admin: 09/12/16 09:40 Dose: 10 mg Oxycodone/Acetaminophen (Percocet 5/325 Mg Tab) 1 tab PO Q4H PRN PRN Reason: Pain, moderate (4-7) Stop: 09/14/16 09:35 Last Admin: 09/12/16 10:25 Dose: 1 tab Potassium Phos/Sodium Phos (Neutra-Phos) 1 pkt PO Q12H [facility] Last Admin: 09/12/16 09:40 Dose: Not Given - Labs Labs: 09/10/16 06:53 09/10/16 06:53 PT 13.1 SECONDS (9.7-12.2) H 09/08/16 07:28 INR 1.1 09/08/16 07:28 APTT 36 SECONDS (21-34) H D 09/08/16 07:28 - Constitutional Appears: No Acute Distress, Cachectic, Chronically Ill - Head Exam Head Exam: NORMAL INSPECTION - Eye Exam Eye Exam: Normal appearance - ENT Exam ENT Exam: Mucous Membranes Moist - Neck Exam Neck Exam: Normal Inspection - Respiratory Exam Respiratory Exam: Decreased Breath Sounds, NORMAL BREATHING PATTERN - Cardiovascular Exam Cardiovascular Exam: Irregular Rhythm - GI/Abdominal Exam GI & Abdominal Exam: Distended, Soft - Extremities Exam Additional comments: chronic skin changes Assessment and Plan (1) ESRD (end stage renal disease) on dialysis Status: Acute (2) Respiratory failure Status: Acute (3) Anemia Status: Acute (4) Atrial fibrillation Status: Acute (5) Chronic pain Status: Acute (6) ESRD on hemodialysis Status: Acute (7) Fibrosing dermatitis Status: Acute - Assessment and Plan (Free Text) Assessment: maintain hd tts consider bone marrow biopsy
[2016-09-12 14:15] LABS: BASO # 0.1 K/uL (0.0-0.2); EOS # 0.1 K/uL (0.0-0.7); EOS % 1.5 % (0.0-4.0); HEMOGLOBIN 8.9 g/dL (11.0-16.0); LYMPH % 24.2 % (20.0-40.0); MEAN CORPUSCULAR HEMOGLOBIN 33.2 pg (27.0-31.0); MEAN CORPUSCULAR HGB CONC 31.5 g/dL (33.0-37.0); MEAN PLATELET VOLUME 9.2 fL (7.2-11.7); MONO # 0.4 K/uL (0.0-0.8); MONO % 10.2 % (0.0-10.0); NEUT # 2.7 K/uL (1.8-7.0); NEUT % 62.1 % (50.0-75.0); NRBC % 0.3 % (0.0-2.0); RBC 2.68 Mil/uL (3.80-5.20); RED CELL DISTRIBUTION WIDTH 16.8 % (11.5-14.5); WHITE BLOOD COUNT 4.3 K/uL (4.8-10.8)
[2016-09-12 14:27] LABS: MEAN CELL VOLUME 105.1 fL (81.0-99.0)
[2016-09-12 14:41] LABS: CALCIUM 7.4 mg/dl (8.6-10.4)
--- NOTE | 2016-09-12 14:41 | CP.PCM.PN ---
Subjective - Date & Time of Evaluation Date of Evaluation: 09/12/16 Time of Evaluation: 14:00 - Subjective Subjective: clinically same Objective - Vital Signs/Intake and Output Vital Signs (last 24 hours): Temp Pulse Resp BP Pulse Ox 97.7 F 64 20 148/71 96 09/12/16 14:15 09/12/16 14:15 09/12/16 14:15 09/12/16 14:30 09/12/16 14:15 Intake and Output: 09/12/16 09/12/16 06:59 18:59 Intake Total 60 Balance 60 - Medications Medications: Current Medications Acetaminophen (Tylenol 650mg/20.3ml Solution Ud) 650 mg PO Q4 PRN PRN Reason: Headache Last Admin: 09/08/16 06:07 Dose: 650 mg Albuterol/Ipratropium (Duoneb 3 Mg/0.5 Mg (3 Ml) Ud) 3 ml INH RQ4 [facility] Last Admin: 09/12/16 13:15 Dose: Not Given Amiodarone HCl (Cordarone) 200 mg PO DAILY [facility] Last Admin: 09/12/16 09:40 Dose: 200 mg Clopidogrel Bisulfate (Plavix) 75 mg PO DAILY [facility] Last Admin: 09/07/16 10:26 Dose: Not Given Docusate Sodium (Colace) 100 mg PO BID PRN PRN Reason: Constipation Last Admin: 09/04/16 11:08 Dose: 100 mg Famotidine (Pepcid) 20 mg PO DAILY [facility] Last Admin: 09/12/16 09:40 Dose: 20 mg Folic Acid (Folic Acid) 1 mg NG DAILY [facility] Last Admin: 09/12/16 09:40 Dose: 1 mg Heparin Sodium (Porcine) (Heparin) 5,000 units SC Q12 [facility] Last Admin: 09/05/16 09:00 Dose: 5,000 units Doxycycline Hyclate 100 mg/ (Sodium Chloride) 100 mls @ 100 mls/hr IVPB Q12H [facility] Last Admin: 09/12/16 10:33 Dose: 100 mls/hr Piperacillin Sod/Tazobactam Sod (Zosyn 2.25 Gm Iv Premix) 2.25 gm in 50 mls @ 100 mls/hr IVPB Q6H [facility] Last Admin: 09/12/16 10:26 Dose: 100 mls/hr Midodrine (Proamatine) 10 mg PO TID [facility] Last Admin: 09/12/16 13:07 Dose: 10 mg Oxycodone/Acetaminophen (Percocet 5/325 Mg Tab) 1 tab PO Q4H PRN PRN Reason: Pain, moderate (4-7) Stop: 09/14/16 09:35 Last Admin: 09/12/16 14:27 Dose: 1 tab Potassium Phos/Sodium Phos (Neutra-Phos) 1 pkt PO Q12H [facility] Last Admin: 09/12/16 09:40 Dose: Not Given - Labs Labs: 09/12/16 14:04 09/10/16 06:53 PT 13.1 SECONDS (9.7-12.2) H 09/08/16 07:28 INR 1.1 09/08/16 07:28 APTT 36 SECONDS (21-34) H D 09/08/16 07:28 - Constitutional Appears: Well - Head Exam Head Exam: ATRAUMATIC, NORMAL INSPECTION, NORMOCEPHALIC - Eye Exam Eye Exam: EOMI, Normal appearance, PERRL Pupil Exam: NORMAL ACCOMODATION, PERRL - ENT Exam ENT Exam: Mucous Membranes Moist, Normal Exam - Neck Exam Neck Exam: Full ROM, Normal Inspection. absent: Lymphadenopathy - Respiratory Exam Respiratory Exam: Decreased Breath Sounds - Cardiovascular Exam Cardiovascular Exam: REGULAR RHYTHM, +S1, +S2 - GI/Abdominal Exam GI & Abdominal Exam: Soft, Diminished Bowel Sounds - Rectal Exam Rectal Exam: Deferred
--- NOTE | 2016-09-13 01:41 | CP.PCM.PN ---
Subjective - Date & Time of Evaluation Date of Evaluation: 09/11/16 Time of Evaluation: 20:00 - Subjective Subjective: Breathing better Objective - Vital Signs/Intake and Output Vital Signs (last 24 hours): Temp Pulse Resp BP Pulse Ox 98 F 61 16 112/48 L 100 09/13/16 00:00 09/13/16 00:00 09/13/16 00:00 09/13/16 00:00 09/13/16 00:00 Intake and Output: 09/12/16 09/13/16 18:59 06:59 Intake Total 260 225 Balance 260 225 - Medications Medications: Current Medications Acetaminophen (Tylenol 650mg/20.3ml Solution Ud) 650 mg PO Q4 PRN PRN Reason: Headache Last Admin: 09/08/16 06:07 Dose: 650 mg Albuterol/Ipratropium (Duoneb 3 Mg/0.5 Mg (3 Ml) Ud) 3 ml INH RQ4 [facility] Last Admin: 09/12/16 23:41 Dose: 3 ml Amiodarone HCl (Cordarone) 200 mg PO DAILY [facility] Last Admin: 09/12/16 09:40 Dose: 200 mg Clopidogrel Bisulfate (Plavix) 75 mg PO DAILY [facility] Last Admin: 09/07/16 10:26 Dose: Not Given Docusate Sodium (Colace) 100 mg PO BID PRN PRN Reason: Constipation Last Admin: 09/04/16 11:08 Dose: 100 mg Famotidine (Pepcid) 20 mg PO DAILY [facility] Last Admin: 09/12/16 09:40 Dose: 20 mg Folic Acid (Folic Acid) 1 mg NG DAILY [facility] Last Admin: 09/12/16 09:40 Dose: 1 mg Heparin Sodium (Porcine) (Heparin) 5,000 units SC Q12 [facility] Last Admin: 09/05/16 09:00 Dose: 5,000 units Doxycycline Hyclate 100 mg/ (Sodium Chloride) 100 mls @ 100 mls/hr IVPB Q12H [facility] Last Admin: 09/12/16 23:07 Dose: 100 mls/hr Piperacillin Sod/Tazobactam Sod (Zosyn 2.25 Gm Iv Premix) 2.25 gm in 50 mls @ 100 mls/hr IVPB Q6H [facility] Last Admin: 09/12/16 23:06 Dose: 100 mls/hr Midodrine (Proamatine) 10 mg PO TID [facility] Last Admin: 09/12/16 17:09 Dose: 10 mg Oxycodone/Acetaminophen (Percocet 5/325 Mg Tab) 1 tab PO Q4H PRN PRN Reason: Pain, moderate (4-7) Stop: 09/14/16 09:35 Last Admin: 09/12/16 21:14 Dose: 1 tab Potassium Phos/Sodium Phos (Neutra-Phos) 1 pkt PO Q12H [facility] Last Admin: 09/12/16 21:06 Dose: Not Given - Labs Labs: 09/12/16 14:04 09/12/16 14:04 PT 13.1 SECONDS (9.7-12.2) H 09/08/16 07:28 INR 1.1 09/08/16 07:28 APTT 36 SECONDS (21-34) H D 09/08/16 07:28 - Head Exam Head Exam: ATRAUMATIC - Eye Exam Eye Exam: Normal appearance - ENT Exam ENT Exam: Mucous Membranes Dry - Respiratory Exam Respiratory Exam: NORMAL BREATHING PATTERN - Cardiovascular Exam Cardiovascular Exam: +S1, +S2 - GI/Abdominal Exam GI & Abdominal Exam: Normal Bowel Sounds - Extremities Exam Extremities Exam: Normal Inspection Assessment and Plan (1) Pancytopenia Assessment & Plan: counts improving bone marrow evaluation if pt agreeable once out of the ICU Status: Acute (2) Coagulopathy Assessment & Plan: nutritional Status: Acute (3) Elevated serum globulin level Assessment & Plan: no monoclonal protein detected Status: Acute
--- NOTE | 2016-09-13 01:44 | CP.PCM.PN ---
Subjective - Date & Time of Evaluation Date of Evaluation: 09/12/16 Time of Evaluation: 15:00 - Subjective Subjective: Breathing better more comfortable Objective - Vital Signs/Intake and Output Vital Signs (last 24 hours): Temp Pulse Resp BP Pulse Ox 98 F 61 16 112/48 L 100 09/13/16 00:00 09/13/16 00:00 09/13/16 00:00 09/13/16 00:00 09/13/16 00:00 Intake and Output: 09/12/16 09/13/16 18:59 06:59 Intake Total 260 225 Balance 260 225 - Medications Medications: Current Medications Acetaminophen (Tylenol 650mg/20.3ml Solution Ud) 650 mg PO Q4 PRN PRN Reason: Headache Last Admin: 09/08/16 06:07 Dose: 650 mg Albuterol/Ipratropium (Duoneb 3 Mg/0.5 Mg (3 Ml) Ud) 3 ml INH RQ4 [facility] Last Admin: 09/12/16 23:41 Dose: 3 ml Amiodarone HCl (Cordarone) 200 mg PO DAILY [facility] Last Admin: 09/12/16 09:40 Dose: 200 mg Clopidogrel Bisulfate (Plavix) 75 mg PO DAILY [facility] Last Admin: 09/07/16 10:26 Dose: Not Given Docusate Sodium (Colace) 100 mg PO BID PRN PRN Reason: Constipation Last Admin: 09/04/16 11:08 Dose: 100 mg Famotidine (Pepcid) 20 mg PO DAILY [facility] Last Admin: 09/12/16 09:40 Dose: 20 mg Folic Acid (Folic Acid) 1 mg NG DAILY [facility] Last Admin: 09/12/16 09:40 Dose: 1 mg Heparin Sodium (Porcine) (Heparin) 5,000 units SC Q12 [facility] Last Admin: 09/05/16 09:00 Dose: 5,000 units Doxycycline Hyclate 100 mg/ (Sodium Chloride) 100 mls @ 100 mls/hr IVPB Q12H [facility] Last Admin: 09/12/16 23:07 Dose: 100 mls/hr Piperacillin Sod/Tazobactam Sod (Zosyn 2.25 Gm Iv Premix) 2.25 gm in 50 mls @ 100 mls/hr IVPB Q6H [facility] Last Admin: 09/12/16 23:06 Dose: 100 mls/hr Midodrine (Proamatine) 10 mg PO TID [facility] Last Admin: 09/12/16 17:09 Dose: 10 mg Oxycodone/Acetaminophen (Percocet 5/325 Mg Tab) 1 tab PO Q4H PRN PRN Reason: Pain, moderate (4-7) Stop: 09/14/16 09:35 Last Admin: 09/12/16 21:14 Dose: 1 tab Potassium Phos/Sodium Phos (Neutra-Phos) 1 pkt PO Q12H [facility] Last Admin: 09/12/16 21:06 Dose: Not Given - Labs Labs: 09/12/16 14:04 09/12/16 14:04 PT 13.1 SECONDS (9.7-12.2) H 09/08/16 07:28 INR 1.1 09/08/16 07:28 APTT 36 SECONDS (21-34) H D 09/08/16 07:28 - Head Exam Head Exam: ATRAUMATIC - Eye Exam Eye Exam: Normal appearance - ENT Exam ENT Exam: Mucous Membranes Dry - Respiratory Exam Respiratory Exam: NORMAL BREATHING PATTERN - Cardiovascular Exam Cardiovascular Exam: +S1, +S2 - GI/Abdominal Exam GI & Abdominal Exam: Normal Bowel Sounds - Extremities Exam Extremities Exam: Normal Inspection Assessment and Plan (1) Pancytopenia Assessment & Plan: counts improving possible bone marrow evaluation Status: Acute (2) Coagulopathy Assessment & Plan: nutritional Status: Acute (3) Elevated serum globulin level Assessment & Plan: no monoclonal protein Status: Acute
[2016-09-13] MEDS: Albuterol-Ipratrop 3 mg / 0.5 (3 ml) UD INH SCH ×5 (03:12→20:45)
[2016-09-13] MEDS: Oxycodone/Acetaminophen 5/325 mg Tab PO PRN ×5 (03:40→22:03)
[2016-09-13] MEDS: Piperacill/Tazo 2.25gm in Dex 2.25 GM/50 ML BAG IVPB SCH ×4 (05:22→22:04)
[2016-09-13] MEDS: Potassium & Sodium Phosphate PO SCH ×2 (09:09→22:15)
--- NOTE | 2016-09-13 11:43 | US ---
PROCEDURE: Date of procedure: 09/11/2016 Procedure: 1. Ultrasound-guided left thoracentesis, CPT 50664 Medications: 6cc 1% Lidocaine HISTORY: Left pleural effusion, shortness of breath TECHNIQUE: Following informed consent ,the Patients' left chest was marked. Procedure time-out was called, and the patient was placed in the sitting position and limited ultrasound showed a large left effusion. The patient's left back was prepped and draped in the usual sterile fashion. After the skin was anesthetized with lidocaine, a drainage catheter was advanced under ultrasound guidance into the pleural space. Ultrasound-guided thoracentesis was performed. A total of 1000 cubic centimeters of straw-colored fluid removed without complication. A Xeroform dressing was applied. IMPRESSION: Ultrasound guided left thoracentesis. There were no immediate complications.
--- NOTE | 2016-09-13 13:14 | CP.PCM.PN ---
Subjective - Date & Time of Evaluation Date of Evaluation: 09/13/16 Time of Evaluation: 13:12 - Subjective Subjective: Appears same Considering BM bx for paraproteinemia Stable dialysis 09/12 Objective - Vital Signs/Intake and Output Vital Signs (last 24 hours): Temp Pulse Resp BP Pulse Ox 98.7 F 64 20 136/64 100 09/13/16 08:00 09/13/16 08:00 09/13/16 08:00 09/13/16 08:00 09/13/16 08:00 Intake and Output: 09/13/16 09/13/16 06:59 18:59 Intake Total 300 300 Balance 300 300 - Medications Medications: Current Medications Acetaminophen (Tylenol 650mg/20.3ml Solution Ud) 650 mg PO Q4 PRN PRN Reason: Headache Last Admin: 09/08/16 06:07 Dose: 650 mg Albuterol/Ipratropium (Duoneb 3 Mg/0.5 Mg (3 Ml) Ud) 3 ml INH RQ4 [facility] Last Admin: 09/13/16 11:04 Dose: 3 ml Amiodarone HCl (Cordarone) 200 mg PO DAILY [facility] Last Admin: 09/13/16 09:07 Dose: 200 mg Clopidogrel Bisulfate (Plavix) 75 mg PO DAILY [facility] Last Admin: 09/07/16 10:26 Dose: Not Given Docusate Sodium (Colace) 100 mg PO BID PRN PRN Reason: Constipation Last Admin: 09/04/16 11:08 Dose: 100 mg Famotidine (Pepcid) 20 mg PO DAILY [facility] Last Admin: 09/13/16 09:07 Dose: 20 mg Folic Acid (Folic Acid) 1 mg NG DAILY [facility] Last Admin: 09/13/16 09:07 Dose: 1 mg Heparin Sodium (Porcine) (Heparin) 5,000 units SC Q12 [facility] Last Admin: 09/05/16 09:00 Dose: 5,000 units Doxycycline Hyclate 100 mg/ (Sodium Chloride) 100 mls @ 100 mls/hr IVPB Q12H [facility] Last Admin: 09/13/16 10:31 Dose: 100 mls/hr Piperacillin Sod/Tazobactam Sod (Zosyn 2.25 Gm Iv Premix) 2.25 gm in 50 mls @ 100 mls/hr IVPB Q6H [facility] Last Admin: 09/13/16 10:17 Dose: 100 mls/hr Midodrine (Proamatine) 10 mg PO TID [facility] Last Admin: 09/13/16 09:07 Dose: 10 mg Oxycodone/Acetaminophen (Percocet 5/325 Mg Tab) 1 tab PO Q4H PRN PRN Reason: Pain, moderate (4-7) Stop: 09/14/16 09:35 Last Admin: 09/13/16 07:55 Dose: 1 tab Potassium Phos/Sodium Phos (Neutra-Phos) 1 pkt PO Q12H [facility] Last Admin: 09/13/16 09:09 Dose: Not Given - Labs Labs: 09/12/16 14:04 09/12/16 14:04 PT 13.1 SECONDS (9.7-12.2) H 09/08/16 07:28 INR 1.1 09/08/16 07:28 APTT 36 SECONDS (21-34) H D 09/08/16 07:28 - Constitutional Appears: Confused, Chronically Ill - Head Exam Head Exam: ATRAUMATIC, NORMAL INSPECTION - Eye Exam Eye Exam: EOMI, Normal appearance - Respiratory Exam Respiratory Exam: Rhonchi, NORMAL BREATHING PATTERN - Cardiovascular Exam Cardiovascular Exam: REGULAR RHYTHM, +S1 - GI/Abdominal Exam GI & Abdominal Exam: Soft. absent: Tenderness - Extremities Exam Extremities Exam: Calf Tenderness, Tenderness - Neurological Exam Neurological Exam: Altered, CN II-XII Intact - Skin Skin Exam: Dry, Warm Assessment and Plan (1) CHF (congestive heart failure) Status: Acute (2) ESRD (end stage renal disease) on dialysis Status: Acute (3) Thrombocytopenia Status: Acute (4) Atrial fibrillation Status: Acute (5) COPD (chronic obstructive pulmonary disease) Status: Acute (6) Fibrosing dermatitis Status: Acute - Assessment and Plan (Free Text) Plan: Dialysis TTS with adequate UF Considering BM bx?
--- NOTE | 2016-09-13 18:11 | CP.PCM.PN ---
Subjective - Date & Time of Evaluation Date of Evaluation: 09/13/16 Time of Evaluation: 13:20 - Subjective Subjective: clinically same Objective - Vital Signs/Intake and Output Vital Signs (last 24 hours): Temp Pulse Resp BP Pulse Ox 98.2 F 66 16 127/65 100 09/13/16 16:00 09/13/16 16:00 09/13/16 16:00 09/13/16 16:00 09/13/16 16:00 Intake and Output: 09/13/16 09/13/16 06:59 18:59 Intake Total 300 300 Balance 300 300 - Medications Medications: Current Medications Acetaminophen (Tylenol 650mg/20.3ml Solution Ud) 650 mg PO Q4 PRN PRN Reason: Headache Last Admin: 09/08/16 06:07 Dose: 650 mg Albuterol/Ipratropium (Duoneb 3 Mg/0.5 Mg (3 Ml) Ud) 3 ml INH RQ4 [facility] Last Admin: 09/13/16 16:00 Dose: 3 ml Amiodarone HCl (Cordarone) 200 mg PO DAILY [facility] Last Admin: 09/13/16 09:07 Dose: 200 mg Clopidogrel Bisulfate (Plavix) 75 mg PO DAILY [facility] Last Admin: 09/07/16 10:26 Dose: Not Given Docusate Sodium (Colace) 100 mg PO BID PRN PRN Reason: Constipation Last Admin: 09/04/16 11:08 Dose: 100 mg Famotidine (Pepcid) 20 mg PO DAILY [facility] Last Admin: 09/13/16 09:07 Dose: 20 mg Folic Acid (Folic Acid) 1 mg NG DAILY [facility] Last Admin: 09/13/16 09:07 Dose: 1 mg Heparin Sodium (Porcine) (Heparin) 5,000 units SC Q12 [facility] Last Admin: 09/05/16 09:00 Dose: 5,000 units Doxycycline Hyclate 100 mg/ (Sodium Chloride) 100 mls @ 100 mls/hr IVPB Q12H [facility] Last Admin: 09/13/16 10:31 Dose: 100 mls/hr Piperacillin Sod/Tazobactam Sod (Zosyn 2.25 Gm Iv Premix) 2.25 gm in 50 mls @ 100 mls/hr IVPB Q6H [facility] Last Admin: 09/13/16 16:24 Dose: 100 mls/hr Midodrine (Proamatine) 10 mg PO TID [facility] Last Admin: 09/13/16 17:57 Dose: 10 mg Oxycodone/Acetaminophen (Percocet 5/325 Mg Tab) 1 tab PO Q4H PRN PRN Reason: Pain, moderate (4-7) Stop: 09/14/16 09:35 Last Admin: 09/13/16 18:00 Dose: 1 tab Potassium Phos/Sodium Phos (Neutra-Phos) 1 pkt PO Q12H [facility] Last Admin: 09/13/16 09:09 Dose: Not Given - Labs Labs: 09/12/16 14:04 09/12/16 14:04 PT 13.1 SECONDS (9.7-12.2) H 09/08/16 07:28 INR 1.1 09/08/16 07:28 APTT 36 SECONDS (21-34) H D 09/08/16 07:28 - Constitutional Appears: Well - Head Exam Head Exam: ATRAUMATIC, NORMAL INSPECTION, NORMOCEPHALIC - Eye Exam Eye Exam: EOMI, Normal appearance, PERRL Pupil Exam: NORMAL ACCOMODATION, PERRL - ENT Exam ENT Exam: Mucous Membranes Moist, Normal Exam - Neck Exam Neck Exam: Full ROM, Normal Inspection. absent: Lymphadenopathy - Respiratory Exam Respiratory Exam: Decreased Breath Sounds - Cardiovascular Exam Cardiovascular Exam: REGULAR RHYTHM, +S1, +S2 - GI/Abdominal Exam GI & Abdominal Exam: Soft, Diminished Bowel Sounds - Rectal Exam Rectal Exam: Deferred
--- NOTE | 2016-09-13 23:48 | CP.PCM.PN ---
Subjective - Date & Time of Evaluation Date of Evaluation: 09/13/16 Time of Evaluation: 14:00 - Subjective Subjective: No complaints. Objective - Vital Signs/Intake and Output Vital Signs (last 24 hours): Temp Pulse Resp BP Pulse Ox 98 F 60 20 109/67 96 09/13/16 19:11 09/13/16 20:56 09/13/16 19:11 09/13/16 19:11 09/13/16 19:11 Intake and Output: 09/13/16 09/14/16 18:59 06:59 Intake Total 600 Balance 600 - Medications Medications: Current Medications Acetaminophen (Tylenol 650mg/20.3ml Solution Ud) 650 mg PO Q4 PRN PRN Reason: Headache Last Admin: 09/08/16 06:07 Dose: 650 mg Albuterol/Ipratropium (Duoneb 3 Mg/0.5 Mg (3 Ml) Ud) 3 ml INH RQ4 [facility] Last Admin: 09/13/16 20:45 Dose: 3 ml Amiodarone HCl (Cordarone) 200 mg PO DAILY [facility] Last Admin: 09/13/16 09:07 Dose: 200 mg Clopidogrel Bisulfate (Plavix) 75 mg PO DAILY [facility] Last Admin: 09/07/16 10:26 Dose: Not Given Docusate Sodium (Colace) 100 mg PO BID PRN PRN Reason: Constipation Last Admin: 09/04/16 11:08 Dose: 100 mg Famotidine (Pepcid) 20 mg PO DAILY [facility] Last Admin: 09/13/16 09:07 Dose: 20 mg Folic Acid (Folic Acid) 1 mg NG DAILY [facility] Last Admin: 09/13/16 09:07 Dose: 1 mg Heparin Sodium (Porcine) (Heparin) 5,000 units SC Q12 [facility] Last Admin: 09/05/16 09:00 Dose: 5,000 units Piperacillin Sod/Tazobactam Sod (Zosyn 2.25 Gm Iv Premix) 2.25 gm in 50 mls @ 100 mls/hr IVPB Q6H [facility] Last Admin: 09/13/16 22:04 Dose: 100 mls/hr Midodrine (Proamatine) 10 mg PO TID [facility] Last Admin: 09/13/16 17:57 Dose: 10 mg Oxycodone/Acetaminophen (Percocet 5/325 Mg Tab) 1 tab PO Q4H PRN PRN Reason: Pain, moderate (4-7) Stop: 09/14/16 09:35 Last Admin: 09/13/16 22:03 Dose: 1 tab Potassium Phos/Sodium Phos (Neutra-Phos) 1 pkt PO Q12H [facility] Last Admin: 09/13/16 22:15 Dose: Not Given - Labs Labs: 09/12/16 14:04 09/12/16 14:04 PT 13.1 SECONDS (9.7-12.2) H 09/08/16 07:28 INR 1.1 09/08/16 07:28 APTT 36 SECONDS (21-34) H D 09/08/16 07:28 - Head Exam Head Exam: ATRAUMATIC - Eye Exam Eye Exam: Normal appearance - ENT Exam ENT Exam: Mucous Membranes Dry - Respiratory Exam Respiratory Exam: NORMAL BREATHING PATTERN - Cardiovascular Exam Cardiovascular Exam: +S1, +S2 - GI/Abdominal Exam GI & Abdominal Exam: Normal Bowel Sounds - Extremities Exam Extremities Exam: Normal Inspection Assessment and Plan (1) Pancytopenia Assessment & Plan: bone marrow biopsy if pt agreeable Status: Acute (2) Coagulopathy Status: Acute (3) Elevated serum globulin level Assessment & Plan: no monoclonal protein detected Status: Acute
[2016-09-14] MEDS: Albuterol-Ipratrop 3 mg / 0.5 (3 ml) UD INH SCH ×6 (00:27→20:10)
[2016-09-14] MEDS: Oxycodone/Acetaminophen 5/325 mg Tab PO PRN ×3 (03:21→22:08)
[2016-09-14] MEDS: Piperacill/Tazo 2.25gm in Dex 2.25 GM/50 ML BAG IVPB SCH ×4 (05:48→22:09)
[2016-09-14 09:48] LABS: BASO # 0.1 K/uL (0.0-0.2); EOS # 0.1 K/uL (0.0-0.7); HEMOGLOBIN 8.9 g/dL (11.0-16.0); NRBC % 0.4 % (0.0-2.0)
[2016-09-14 09:54] LABS: BASO % 1.8 % (0.0-2.0); EOS % 1.1 % (0.0-4.0); LYMPH # 0.7 K/uL (1.0-4.3); MEAN CELL VOLUME 105.3 fL (81.0-99.0); MEAN CORPUSCULAR HEMOGLOBIN 33.1 pg (27.0-31.0); MEAN CORPUSCULAR HGB CONC 31.5 g/dL (33.0-37.0); MEAN PLATELET VOLUME 9.5 fL (7.2-11.7); MONO # 0.4 K/uL (0.0-0.8); MONO % 6.5 % (0.0-10.0); NEUT # 4.4 K/uL (1.8-7.0); NEUT % 78.6 % (50.0-75.0); RBC 2.68 Mil/uL (3.80-5.20); RED CELL DISTRIBUTION WIDTH 16.7 % (11.5-14.5); WHITE BLOOD COUNT 5.5 K/uL (4.8-10.8)
--- NOTE | 2016-09-14 10:32 | CP.PCM.PN ---
Subjective - Date & Time of Evaluation Date of Evaluation: 09/14/16 Time of Evaluation: 08:20 - Subjective Subjective: clinically same Objective - Vital Signs/Intake and Output Vital Signs (last 24 hours): Temp Pulse Resp BP Pulse Ox 97.0 F L 61 18 153/79 H 95 09/14/16 08:40 09/14/16 08:40 09/14/16 08:40 09/14/16 08:40 09/14/16 08:40 - Medications Medications: Current Medications Acetaminophen (Tylenol 650mg/20.3ml Solution Ud) 650 mg PO Q4 PRN PRN Reason: Headache Last Admin: 09/08/16 06:07 Dose: 650 mg Albuterol/Ipratropium (Duoneb 3 Mg/0.5 Mg (3 Ml) Ud) 3 ml INH RQ4 [facility] Last Admin: 09/14/16 09:18 Dose: 3 ml Amiodarone HCl (Cordarone) 200 mg PO DAILY [facility] Last Admin: 09/13/16 09:07 Dose: 200 mg Clopidogrel Bisulfate (Plavix) 75 mg PO DAILY [facility] Last Admin: 09/07/16 10:26 Dose: Not Given Docusate Sodium (Colace) 100 mg PO BID PRN PRN Reason: Constipation Last Admin: 09/04/16 11:08 Dose: 100 mg Famotidine (Pepcid) 20 mg PO DAILY [facility] Last Admin: 09/13/16 09:07 Dose: 20 mg Folic Acid (Folic Acid) 1 mg NG DAILY [facility] Last Admin: 09/13/16 09:07 Dose: 1 mg Heparin Sodium (Porcine) (Heparin) 5,000 units SC Q12 [facility] Last Admin: 09/05/16 09:00 Dose: 5,000 units Piperacillin Sod/Tazobactam Sod (Zosyn 2.25 Gm Iv Premix) 2.25 gm in 50 mls @ 100 mls/hr IVPB Q6H [facility] Last Admin: 09/14/16 05:48 Dose: 100 mls/hr Midodrine (Proamatine) 10 mg PO TID [facility] Last Admin: 09/14/16 09:04 Dose: Not Given Potassium Phos/Sodium Phos (Neutra-Phos) 1 pkt PO Q12H [facility] Last Admin: 09/13/16 22:15 Dose: Not Given - Labs Labs: 09/14/16 09:40 09/12/16 14:04 PT 13.1 SECONDS (9.7-12.2) H 09/08/16 07:28 INR 1.1 09/08/16 07:28 APTT 36 SECONDS (21-34) H D 09/08/16 07:28 - Constitutional Appears: Well - Head Exam Head Exam: ATRAUMATIC, NORMAL INSPECTION, NORMOCEPHALIC - Eye Exam Eye Exam: EOMI, Normal appearance, PERRL Pupil Exam: NORMAL ACCOMODATION, PERRL - ENT Exam ENT Exam: Mucous Membranes Moist, Normal Exam - Neck Exam Neck Exam: Full ROM, Normal Inspection. absent: Lymphadenopathy - Respiratory Exam Respiratory Exam: Decreased Breath Sounds - Cardiovascular Exam Cardiovascular Exam: REGULAR RHYTHM, +S1, +S2 - GI/Abdominal Exam GI & Abdominal Exam: Soft, Diminished Bowel Sounds - Rectal Exam Rectal Exam: Deferred
[2016-09-14] MEDS: Potassium & Sodium Phosphate PO SCH ×2 (11:06→21:39)
--- NOTE | 2016-09-14 12:33 | US ---
Limited thorax ultrasound History: Pleural effusion. Comparison: Ultrasound dated 09/11/2016 and chest x-ray dated 09/10/2016 Technique: Limited ultrasound through the bilateral lakia thoraces for evaluation of pleural effusion. Findings: Bilateral pleural effusions noted. Impression: Limited ultrasound for evaluation of bilateral pleural effusions. Bilateral pleural effusions noted.
--- NOTE | 2016-09-14 16:37 | CP.PCM.PN ---
Subjective - Date & Time of Evaluation Date of Evaluation: 09/14/16 Time of Evaluation: 16:00 - Subjective Subjective: No complaints Pt and son deferred bone marrow for now; outpatient f/u of blood counts and will reconsider whould cytopenias worsen Objective - Vital Signs/Intake and Output Vital Signs (last 24 hours): Temp Pulse Resp BP Pulse Ox 98.0 F 74 20 125/71 99 09/14/16 16:33 09/14/16 16:33 09/14/16 16:33 09/14/16 16:33 09/14/16 16:33 Intake and Output: 09/14/16 09/14/16 06:59 18:59 Intake Total 480 Balance 480 - Medications Medications: Current Medications Acetaminophen (Tylenol 650mg/20.3ml Solution Ud) 650 mg PO Q4 PRN PRN Reason: Headache Last Admin: 09/08/16 06:07 Dose: 650 mg Albuterol/Ipratropium (Duoneb 3 Mg/0.5 Mg (3 Ml) Ud) 3 ml INH RQ4 [facility] Last Admin: 09/14/16 13:09 Dose: 3 ml Amiodarone HCl (Cordarone) 200 mg PO DAILY [facility] Last Admin: 09/14/16 11:06 Dose: Not Given Clopidogrel Bisulfate (Plavix) 75 mg PO DAILY [facility] Last Admin: 09/07/16 10:26 Dose: Not Given Docusate Sodium (Colace) 100 mg PO BID PRN PRN Reason: Constipation Last Admin: 09/04/16 11:08 Dose: 100 mg Famotidine (Pepcid) 20 mg PO DAILY [facility] Last Admin: 09/14/16 11:06 Dose: Not Given Folic Acid (Folic Acid) 1 mg NG DAILY [facility] Last Admin: 09/14/16 11:06 Dose: Not Given Heparin Sodium (Porcine) (Heparin) 5,000 units SC Q12 [facility] Last Admin: 09/05/16 09:00 Dose: 5,000 units Piperacillin Sod/Tazobactam Sod (Zosyn 2.25 Gm Iv Premix) 2.25 gm in 50 mls @ 100 mls/hr IVPB Q6H [facility] Last Admin: 09/14/16 11:07 Dose: Not Given Midodrine (Proamatine) 10 mg PO TID [facility] Last Admin: 09/14/16 14:00 Dose: Not Given Oxycodone/Acetaminophen (Percocet 5/325 Mg Tab) 1 tab PO Q4H PRN PRN Reason: Pain, moderate (4-7) Stop: 09/17/16 14:18 Last Admin: 09/14/16 15:52 Dose: 1 tab Potassium Phos/Sodium Phos (Neutra-Phos) 1 pkt PO Q12H [facility] Last Admin: 09/14/16 11:06 Dose: Not Given - Labs Labs: 09/14/16 09:40 09/12/16 14:04 PT 13.1 SECONDS (9.7-12.2) H 09/08/16 07:28 INR 1.1 09/08/16 07:28 APTT 36 SECONDS (21-34) H D 09/08/16 07:28 - Head Exam Head Exam: ATRAUMATIC - Eye Exam Eye Exam: Normal appearance - ENT Exam ENT Exam: Mucous Membranes Dry - Respiratory Exam Respiratory Exam: NORMAL BREATHING PATTERN - Cardiovascular Exam Cardiovascular Exam: +S1, +S2 - GI/Abdominal Exam GI & Abdominal Exam: Normal Bowel Sounds - Extremities Exam Extremities Exam: Normal Inspection Assessment and Plan (1) Pancytopenia Assessment & Plan: WBC improved bone marrow biopsy deferred outpatient f/u of CBC Status: Acute (2) Coagulopathy Assessment & Plan: nutritional Status: Acute (3) Elevated serum globulin level Assessment & Plan: no evidence of monoclonal protein Status: Acute
--- NOTE | 2016-09-14 19:53 | CP.PCM.PN ---
Subjective - Date & Time of Evaluation Date of Evaluation: 09/14/16 Time of Evaluation: 19:52 - Subjective Subjective: seen and examined on hd tolerating well no sob notes reviewed Objective - Vital Signs/Intake and Output Vital Signs (last 24 hours): Temp Pulse Resp BP Pulse Ox 98.0 F 78 20 125/71 99 09/14/16 15:33 09/14/16 17:00 09/14/16 15:33 09/14/16 15:33 09/14/16 15:33 Intake and Output: 09/14/16 09/15/16 18:59 06:59 Intake Total 480 Balance 480 - Medications Medications: Current Medications Acetaminophen (Tylenol 650mg/20.3ml Solution Ud) 650 mg PO Q4 PRN PRN Reason: Headache Last Admin: 09/08/16 06:07 Dose: 650 mg Albuterol/Ipratropium (Duoneb 3 Mg/0.5 Mg (3 Ml) Ud) 3 ml INH RQ4 [facility] Last Admin: 09/14/16 16:41 Dose: 3 ml Amiodarone HCl (Cordarone) 200 mg PO DAILY [facility] Last Admin: 09/14/16 11:06 Dose: Not Given Clopidogrel Bisulfate (Plavix) 75 mg PO DAILY [facility] Last Admin: 09/07/16 10:26 Dose: Not Given Docusate Sodium (Colace) 100 mg PO BID PRN PRN Reason: Constipation Last Admin: 09/04/16 11:08 Dose: 100 mg Famotidine (Pepcid) 20 mg PO DAILY [facility] Last Admin: 09/14/16 11:06 Dose: Not Given Folic Acid (Folic Acid) 1 mg NG DAILY [facility] Last Admin: 09/14/16 11:06 Dose: Not Given Heparin Sodium (Porcine) (Heparin) 5,000 units SC Q12 [facility] Last Admin: 09/05/16 09:00 Dose: 5,000 units Piperacillin Sod/Tazobactam Sod (Zosyn 2.25 Gm Iv Premix) 2.25 gm in 50 mls @ 100 mls/hr IVPB Q6H [facility] Last Admin: 09/14/16 18:13 Dose: 100 mls/hr Midodrine (Proamatine) 10 mg PO TID [facility] Last Admin: 09/14/16 18:13 Dose: 10 mg Oxycodone/Acetaminophen (Percocet 5/325 Mg Tab) 1 tab PO Q4H PRN PRN Reason: Pain, moderate (4-7) Stop: 09/17/16 14:18 Last Admin: 09/14/16 15:52 Dose: 1 tab Potassium Phos/Sodium Phos (Neutra-Phos) 1 pkt PO Q12H [facility] Last Admin: 09/14/16 11:06 Dose: Not Given - Labs Labs: 09/14/16 09:40 09/12/16 14:04 PT 13.1 SECONDS (9.7-12.2) H 09/08/16 07:28 INR 1.1 09/08/16 07:28 APTT 36 SECONDS (21-34) H D 09/08/16 07:28 - Constitutional Appears: Non-toxic, No Acute Distress, Older Than Stated Age, Cachectic, Chronically Ill - Head Exam Head Exam: NORMAL INSPECTION - Eye Exam Eye Exam: Normal appearance - ENT Exam ENT Exam: Mucous Membranes Moist, Normal Exam - Neck Exam Neck Exam: Normal Inspection - Respiratory Exam Respiratory Exam: Decreased Breath Sounds, Rales, NORMAL BREATHING PATTERN - Cardiovascular Exam Cardiovascular Exam: Irregular Rhythm - GI/Abdominal Exam GI & Abdominal Exam: Distended, Soft Assessment and Plan (1) ESRD (end stage renal disease) on dialysis Status: Acute (2) Respiratory failure Status: Acute (3) Anemia Status: Acute (4) Atrial fibrillation Status: Acute (5) Chronic pain Status: Acute (6) ESRD on hemodialysis Status: Acute (7) Fibrosing dermatitis Status: Acute - Assessment and Plan (Free Text) Assessment: maintain hd tts supportive care pt/ot
[2016-09-15] MEDS: Piperacill/Tazo 2.25gm in Dex 2.25 GM/50 ML BAG IVPB SCH ×4 (05:43→22:15)
[2016-09-15] MEDS: Oxycodone/Acetaminophen 5/325 mg Tab PO PRN ×2 (06:01→18:10)
[2016-09-15] MEDS: Potassium & Sodium Phosphate PO SCH ×2 (10:37→22:15)
--- NOTE | 2016-09-15 11:19 | CP.PCM.PN ---
Subjective - Date & Time of Evaluation Date of Evaluation: 09/15/16 Time of Evaluation: 09:00 - Subjective Subjective: clinically same Objective - Vital Signs/Intake and Output Vital Signs (last 24 hours): Temp Pulse Resp BP Pulse Ox 97.8 F 65 18 119/66 97 09/15/16 08:15 09/15/16 08:15 09/15/16 08:15 09/15/16 08:15 09/15/16 08:15 - Medications Medications: Current Medications Acetaminophen (Tylenol 650mg/20.3ml Solution Ud) 650 mg PO Q4 PRN PRN Reason: Headache Last Admin: 09/08/16 06:07 Dose: 650 mg Amiodarone HCl (Cordarone) 200 mg PO DAILY [facility] Last Admin: 09/15/16 10:38 Dose: 200 mg Clopidogrel Bisulfate (Plavix) 75 mg PO DAILY [facility] Last Admin: 09/07/16 10:26 Dose: Not Given Docusate Sodium (Colace) 100 mg PO BID PRN PRN Reason: Constipation Last Admin: 09/04/16 11:08 Dose: 100 mg Famotidine (Pepcid) 20 mg PO DAILY [facility] Last Admin: 09/15/16 10:37 Dose: 20 mg Folic Acid (Folic Acid) 1 mg NG DAILY [facility] Last Admin: 09/15/16 10:38 Dose: 1 mg Heparin Sodium (Porcine) (Heparin) 5,000 units SC Q12 [facility] Last Admin: 09/05/16 09:00 Dose: 5,000 units Piperacillin Sod/Tazobactam Sod (Zosyn 2.25 Gm Iv Premix) 2.25 gm in 50 mls @ 100 mls/hr IVPB Q6H [facility] Last Admin: 09/15/16 10:38 Dose: 100 mls/hr Midodrine (Proamatine) 10 mg PO TID [facility] Last Admin: 09/15/16 10:37 Dose: 10 mg Oxycodone/Acetaminophen (Percocet 5/325 Mg Tab) 1 tab PO Q4H PRN PRN Reason: Pain, moderate (4-7) Stop: 09/17/16 14:18 Last Admin: 09/15/16 06:01 Dose: 1 tab Potassium Phos/Sodium Phos (Neutra-Phos) 1 pkt PO Q12H [facility] Last Admin: 09/15/16 10:37 Dose: 1 pkt - Labs Labs: 09/14/16 09:40 09/12/16 14:04 PT 13.1 SECONDS (9.7-12.2) H 09/08/16 07:28 INR 1.1 09/08/16 07:28 APTT 36 SECONDS (21-34) H D 09/08/16 07:28 - Constitutional Appears: Well - Head Exam Head Exam: ATRAUMATIC, NORMAL INSPECTION, NORMOCEPHALIC - Eye Exam Eye Exam: EOMI, Normal appearance, PERRL Pupil Exam: NORMAL ACCOMODATION, PERRL - ENT Exam ENT Exam: Mucous Membranes Moist, Normal Exam - Neck Exam Neck Exam: Full ROM, Normal Inspection. absent: Lymphadenopathy - Respiratory Exam Respiratory Exam: Decreased Breath Sounds - Cardiovascular Exam Cardiovascular Exam: REGULAR RHYTHM, +S1, +S2 - GI/Abdominal Exam GI & Abdominal Exam: Soft, Diminished Bowel Sounds - Rectal Exam Rectal Exam: Deferred
--- NOTE | 2016-09-15 14:00 | CP.PCM.PN ---
Subjective - Date & Time of Evaluation Date of Evaluation: 09/15/16 Time of Evaluation: 13:58 - Subjective Subjective: Refused BM bx Stable dialysis 09/14 More alert and less dyspneic Hg lower- need to resume ESAs Objective - Vital Signs/Intake and Output Vital Signs (last 24 hours): Temp Pulse Resp BP Pulse Ox 97.8 F 65 18 119/66 97 09/15/16 08:15 09/15/16 08:15 09/15/16 08:15 09/15/16 08:15 09/15/16 08:15 - Medications Medications: Current Medications Acetaminophen (Tylenol 650mg/20.3ml Solution Ud) 650 mg PO Q4 PRN PRN Reason: Headache Last Admin: 09/08/16 06:07 Dose: 650 mg Amiodarone HCl (Cordarone) 200 mg PO DAILY [facility] Last Admin: 09/15/16 10:38 Dose: 200 mg Clopidogrel Bisulfate (Plavix) 75 mg PO DAILY [facility] Last Admin: 09/07/16 10:26 Dose: Not Given Docusate Sodium (Colace) 100 mg PO BID PRN PRN Reason: Constipation Last Admin: 09/04/16 11:08 Dose: 100 mg Famotidine (Pepcid) 20 mg PO DAILY [facility] Last Admin: 09/15/16 10:37 Dose: 20 mg Folic Acid (Folic Acid) 1 mg NG DAILY [facility] Last Admin: 09/15/16 10:38 Dose: 1 mg Heparin Sodium (Porcine) (Heparin) 5,000 units SC Q12 [facility] Last Admin: 09/05/16 09:00 Dose: 5,000 units Piperacillin Sod/Tazobactam Sod (Zosyn 2.25 Gm Iv Premix) 2.25 gm in 50 mls @ 100 mls/hr IVPB Q6H [facility] Last Admin: 09/15/16 10:38 Dose: 100 mls/hr Midodrine (Proamatine) 10 mg PO TID [facility] Last Admin: 09/15/16 10:37 Dose: 10 mg Oxycodone/Acetaminophen (Percocet 5/325 Mg Tab) 1 tab PO Q4H PRN PRN Reason: Pain, moderate (4-7) Stop: 09/17/16 14:18 Last Admin: 09/15/16 06:01 Dose: 1 tab Potassium Phos/Sodium Phos (Neutra-Phos) 1 pkt PO Q12H [facility] Last Admin: 09/15/16 10:37 Dose: 1 pkt - Labs Labs: 09/14/16 09:40 09/12/16 14:04 PT 13.1 SECONDS (9.7-12.2) H 09/08/16 07:28 INR 1.1 09/08/16 07:28 APTT 36 SECONDS (21-34) H D 09/08/16 07:28 - Constitutional Appears: No Acute Distress, Chronically Ill - Head Exam Head Exam: ATRAUMATIC, NORMAL INSPECTION - Eye Exam Eye Exam: EOMI, Normal appearance - Neck Exam Neck Exam: Normal Inspection. absent: Tenderness - Respiratory Exam Respiratory Exam: Clear to Ausculation Bilateral, NORMAL BREATHING PATTERN - Cardiovascular Exam Cardiovascular Exam: REGULAR RHYTHM, +S1 - GI/Abdominal Exam GI & Abdominal Exam: Soft. absent: Tenderness - Extremities Exam Extremities Exam: Normal Inspection. absent: Tenderness - Neurological Exam Neurological Exam: Alert, CN II-XII Intact - Skin Skin Exam: Dry, Warm Assessment and Plan (1) CHF (congestive heart failure) Status: Acute (2) ESRD (end stage renal disease) on dialysis Status: Acute (3) Thrombocytopenia Status: Acute (4) Atrial fibrillation Status: Acute (5) COPD (chronic obstructive pulmonary disease) Status: Acute (6) Fibrosing dermatitis Status: Acute - Assessment and Plan (Free Text) Plan: Dialysis TTS Adequate UF rate start ESAs
[2016-09-15 16:35] VITALS: RESP 20
--- NOTE | 2016-09-15 17:04 | CP.PCM.PN ---
Subjective - Date & Time of Evaluation Date of Evaluation: 09/15/16 Time of Evaluation: 07:30 - Subjective Subjective: Medicine Progress Note- Dr. Moody Newell's service: Patient seen and examined at bedside this AM. Patient admits to persistent diarrhea. She has HD scheduled tomorrow. Denies chest pain, SOB, abdominal pain , nausea, vomiting, fevers or chills. Objective - Vital Signs/Intake and Output Vital Signs (last 24 hours): Temp Pulse Resp BP Pulse Ox 98.1 F 67 20 130/72 98 09/15/16 16:00 09/15/16 16:00 09/15/16 16:00 09/15/16 16:00 09/15/16 16:00 Intake and Output: 09/15/16 09/15/16 06:59 18:59 Intake Total 530 Balance 530 - Medications Medications: Current Medications Acetaminophen (Tylenol 650mg/20.3ml Solution Ud) 650 mg PO Q4 PRN PRN Reason: Headache Last Admin: 09/08/16 06:07 Dose: 650 mg Amiodarone HCl (Cordarone) 200 mg PO DAILY [facility] Last Admin: 09/15/16 10:38 Dose: 200 mg Clopidogrel Bisulfate (Plavix) 75 mg PO DAILY [facility] Last Admin: 09/07/16 10:26 Dose: Not Given Docusate Sodium (Colace) 100 mg PO BID PRN PRN Reason: Constipation Last Admin: 09/04/16 11:08 Dose: 100 mg Epoetin Phil (Procrit) 10,000 unit IV TTS [facility] Famotidine (Pepcid) 20 mg PO DAILY [facility] Last Admin: 09/15/16 10:37 Dose: 20 mg Folic Acid (Folic Acid) 1 mg NG DAILY [facility] Last Admin: 09/15/16 10:38 Dose: 1 mg Heparin Sodium (Porcine) (Heparin) 5,000 units SC Q12 [facility] Last Admin: 09/05/16 09:00 Dose: 5,000 units Piperacillin Sod/Tazobactam Sod (Zosyn 2.25 Gm Iv Premix) 2.25 gm in 50 mls @ 100 mls/hr IVPB Q6H [facility] Last Admin: 09/15/16 10:38 Dose: 100 mls/hr Midodrine (Proamatine) 10 mg PO TID [facility] Last Admin: 09/15/16 10:37 Dose: 10 mg Oxycodone/Acetaminophen (Percocet 5/325 Mg Tab) 1 tab PO Q4H PRN PRN Reason: Pain, moderate (4-7) Stop: 09/17/16 14:18 Last Admin: 09/15/16 06:01 Dose: 1 tab Potassium Phos/Sodium Phos (Neutra-Phos) 1 pkt PO Q12H [facility] Last Admin: 09/15/16 10:37 Dose: 1 pkt - Labs Labs: 09/14/16 09:40 09/12/16 14:04 PT 13.1 SECONDS (9.7-12.2) H 09/08/16 07:28 INR 1.1 09/08/16 07:28 APTT 36 SECONDS (21-34) H D 09/08/16 07:28 - Constitutional Appears: No Acute Distress, Chronically Ill - Head Exam Head Exam: NORMAL INSPECTION - Eye Exam Eye Exam: EOMI - ENT Exam ENT Exam: Mucous Membranes Dry, Normal Exam - Neck Exam Neck Exam: Full ROM Additional comments: Left IJ in place - Respiratory Exam Respiratory Exam: Clear to Ausculation Bilateral, NORMAL BREATHING PATTERN - Cardiovascular Exam Cardiovascular Exam: REGULAR RHYTHM, +S1, +S2 - GI/Abdominal Exam GI & Abdominal Exam: Soft, Normal Bowel Sounds. absent: Distended - Extremities Exam Extremities Exam: Pedal Edema. absent: Tenderness - Neurological Exam Neurological Exam: Alert, Awake, Oriented x3 - Psychiatric Exam Psychiatric exam: Normal Affect, Normal Mood - Skin Skin Exam: Dry, Warm Additional comments: +desquamation in different areas of hands and all extremities Assessment and Plan - Assessment and Plan (Free Text) Assessment: (1) Respiratory Failure Patient with b/l pleural effusions. s/p extubation and ICU course. Patient on 4L NC with sats in the high 90's Continue HD TTS CT chest (09/06/16): Moderate to large b/l pleural effusion slightly larger on left. Continue Zosyn IVPB (2) Neutropenia s/p transfusion 1U platelets Dr. Chairez following Pt and son deferred bone marrow for now. Outpatient f/u of blood counts and will reconsider should cytopenia worsen (3) Coagulopathy Assessment & Plan: Dr. Chairez following. Likely secondary to nutritional status Status: Acute (3) Atrial fibrillation Assessment & Plan: Continue on Amio 200 mg PO daily Patient off anticoagulation given coagulopathies Status: Acute (4) ESRD on hemodialysis Assessment & Plan: Diaylsis TTS Dr. Eng following patient Status: Acute (5) CAD Midodrine 10mg po tid Lopressor 25mg po bid Plavix 75mg po daily on hold (5) Scleroderma PT/OT Patient with chronic pain (6) Prophylactic measure Assessment & Plan: DVT proph: heparin 5000u sc q12 on HOLD GI proph: Pepcid 20mg po daily. Status: Acute Management as per Dr. Moody Newell. Discharge planning tomorrow.
--- NOTE | 2016-09-15 20:32 | CP.PCM.PN ---
Subjective - Date & Time of Evaluation Date of Evaluation: 09/15/16 Time of Evaluation: 17:10 - Subjective Subjective: Feeling better Objective - Vital Signs/Intake and Output Vital Signs (last 24 hours): Temp Pulse Resp BP Pulse Ox 98.1 F 67 20 130/72 98 09/15/16 16:00 09/15/16 16:00 09/15/16 16:00 09/15/16 16:00 09/15/16 16:00 Intake and Output: 09/15/16 09/16/16 18:59 06:59 Intake Total 530 Balance 530 - Medications Medications: Current Medications Acetaminophen (Tylenol 650mg/20.3ml Solution Ud) 650 mg PO Q4 PRN PRN Reason: Headache Last Admin: 09/08/16 06:07 Dose: 650 mg Amiodarone HCl (Cordarone) 200 mg PO DAILY [facility] Last Admin: 09/15/16 10:38 Dose: 200 mg Clopidogrel Bisulfate (Plavix) 75 mg PO DAILY [facility] Last Admin: 09/07/16 10:26 Dose: Not Given Docusate Sodium (Colace) 100 mg PO BID PRN PRN Reason: Constipation Last Admin: 09/15/16 18:10 Dose: 100 mg Epoetin Phil (Procrit) 10,000 unit IV TTS [facility] Famotidine (Pepcid) 20 mg PO DAILY [facility] Last Admin: 09/15/16 10:37 Dose: 20 mg Folic Acid (Folic Acid) 1 mg NG DAILY [facility] Last Admin: 09/15/16 10:38 Dose: 1 mg Heparin Sodium (Porcine) (Heparin) 5,000 units SC Q12 [facility] Last Admin: 09/05/16 09:00 Dose: 5,000 units Piperacillin Sod/Tazobactam Sod (Zosyn 2.25 Gm Iv Premix) 2.25 gm in 50 mls @ 100 mls/hr IVPB Q6H [facility] Last Admin: 09/15/16 18:10 Dose: 100 mls/hr Midodrine (Proamatine) 10 mg PO TID [facility] Last Admin: 09/15/16 18:10 Dose: Not Given Oxycodone/Acetaminophen (Percocet 5/325 Mg Tab) 1 tab PO Q4H PRN PRN Reason: Pain, moderate (4-7) Stop: 09/17/16 14:18 Last Admin: 09/15/16 18:10 Dose: 1 tab Potassium Phos/Sodium Phos (Neutra-Phos) 1 pkt PO Q12H [facility] Last Admin: 09/15/16 10:37 Dose: 1 pkt - Labs Labs: 09/14/16 09:40 09/12/16 14:04 PT 13.1 SECONDS (9.7-12.2) H 09/08/16 07:28 INR 1.1 09/08/16 07:28 APTT 36 SECONDS (21-34) H D 09/08/16 07:28 - Head Exam Head Exam: ATRAUMATIC - Eye Exam Eye Exam: Normal appearance - ENT Exam ENT Exam: Mucous Membranes Dry - Respiratory Exam Respiratory Exam: NORMAL BREATHING PATTERN - Cardiovascular Exam Cardiovascular Exam: +S1, +S2 - GI/Abdominal Exam GI & Abdominal Exam: Normal Bowel Sounds - Extremities Exam Extremities Exam: Normal Inspection Assessment and Plan (1) Pancytopenia Assessment & Plan: deferred bone marrow biopsy anemia of CKD Status: Acute (2) Coagulopathy Assessment & Plan: nutritional Status: Acute (3) Elevated serum globulin level Assessment & Plan: no monoclonal protein detected Status: Acute
[2016-09-16] MEDS: Oxycodone/Acetaminophen 5/325 mg Tab PO PRN (04:44)
[2016-09-16] MEDS: Piperacill/Tazo 2.25gm in Dex 2.25 GM/50 ML BAG IVPB SCH (05:38)
[2016-09-16 08:11] VITALS: TEMP 97.9
[2016-09-16] MEDS ORDERED: EPOETIN ALFA 10,000 UNIT/ML ML IV SCH (10:00)
[2016-09-16] MEDS: Potassium & Sodium Phosphate PO SCH (10:00)
--- NOTE | 2016-09-16 10:54 | CP.PCM.PN ---
Subjective - Date & Time of Evaluation Date of Evaluation: 09/16/16 Time of Evaluation: 10:52 - Subjective Subjective: For dialysis now Feels better Still with some diarrhea Not dyspneic now EPO to be given Objective - Vital Signs/Intake and Output Vital Signs (last 24 hours): Temp Pulse Resp BP Pulse Ox 97.9 F 64 20 125/72 98 09/16/16 08:08 09/16/16 08:08 09/16/16 08:08 09/16/16 08:08 09/16/16 08:08 - Medications Medications: Current Medications Acetaminophen (Tylenol 650mg/20.3ml Solution Ud) 650 mg PO Q4 PRN PRN Reason: Headache Last Admin: 09/08/16 06:07 Dose: 650 mg Clopidogrel Bisulfate (Plavix) 75 mg PO DAILY [facility] Last Admin: 09/07/16 10:26 Dose: Not Given Epoetin Phil (Procrit) 10,000 unit IV TTS [facility] Heparin Sodium (Porcine) (Heparin) 5,000 units SC Q12 [facility] Last Admin: 09/05/16 09:00 Dose: 5,000 units Midodrine (Proamatine) 10 mg PO TID [facility] Last Admin: 09/15/16 18:10 Dose: Not Given Oxycodone/Acetaminophen (Percocet 5/325 Mg Tab) 1 tab PO Q4H PRN PRN Reason: Pain, moderate (4-7) Stop: 09/17/16 14:18 Last Admin: 09/16/16 04:44 Dose: 1 tab Potassium Phos/Sodium Phos (Neutra-Phos) 1 pkt PO Q12H [facility] Last Admin: 09/15/16 22:15 Dose: 1 pkt - Labs Labs: 09/14/16 09:40 09/12/16 14:04 PT 13.1 SECONDS (9.7-12.2) H 09/08/16 07:28 INR 1.1 09/08/16 07:28 APTT 36 SECONDS (21-34) H D 09/08/16 07:28 - Constitutional Appears: No Acute Distress, Chronically Ill - Head Exam Head Exam: ATRAUMATIC, NORMAL INSPECTION - Eye Exam Eye Exam: EOMI, Normal appearance - Neck Exam Neck Exam: Normal Inspection. absent: Tenderness - Respiratory Exam Respiratory Exam: Clear to Ausculation Bilateral, NORMAL BREATHING PATTERN - Cardiovascular Exam Cardiovascular Exam: REGULAR RHYTHM, +S1 - GI/Abdominal Exam GI & Abdominal Exam: Soft. absent: Tenderness - Extremities Exam Extremities Exam: Normal Inspection, Tenderness - Neurological Exam Neurological Exam: Awake, CN II-XII Intact - Skin Skin Exam: Dry, Warm Assessment and Plan (1) CHF (congestive heart failure) Status: Acute (2) ESRD (end stage renal disease) on dialysis Status: Acute (3) Thrombocytopenia Status: Acute (4) Atrial fibrillation Status: Acute (5) COPD (chronic obstructive pulmonary disease) Status: Acute (6) Fibrosing dermatitis Status: Acute - Assessment and Plan (Free Text) Plan: Dialysis TTS with adequate UF ESAs now
[2016-09-16 12:18] LABS: ALBUMIN 4.2 g/dL (3.5-5.0)
[2016-09-16 12:20] LABS: BASO # 0.1 K/uL (0.0-0.2); BASO % 1.3 % (0.0-2.0); EOS # 0.1 K/uL (0.0-0.7); EOS % 1.5 % (0.0-4.0); HEMOGLOBIN 9.3 g/dL (11.0-16.0); LYMPH # 0.8 K/uL (1.0-4.3); LYMPH % 14.9 % (20.0-40.0); MEAN CELL VOLUME 104.5 fL (81.0-99.0); MEAN CORPUSCULAR HEMOGLOBIN 33.1 pg (27.0-31.0); MEAN CORPUSCULAR HGB CONC 31.7 g/dL (33.0-37.0); MEAN PLATELET VOLUME 9.9 fL (7.2-11.7); MONO # 0.3 K/uL (0.0-0.8); MONO % 5.5 % (0.0-10.0); NEUT # 4.4 K/uL (1.8-7.0); NEUT % 76.8 % (50.0-75.0); NRBC % 0.1 % (0.0-2.0); RBC 2.8 Mil/uL (3.80-5.20); RED CELL DISTRIBUTION WIDTH 16.5 % (11.5-14.5); WHITE BLOOD COUNT 5.7 K/uL (4.8-10.8)
[2016-09-16 12:21] LABS: ALB/GLOB RATIO 0.9 (1.0-2.1); AST/SGOT 15 U/L (14-36); BLOOD UREA NITROGEN 25 mg/dL (7-17); GFR AFRICAN-AMERICAN 15; GFR NON-AFRICAN AMERICAN 13
[2016-09-16 12:27] LABS: ALT/SGPT < 6 U/L (9-52)
--- NOTE | 2016-09-16 20:58 | CP.PCM.PN ---
Subjective - Date & Time of Evaluation Date of Evaluation: 09/16/16 Objective - Vital Signs/Intake and Output Vital Signs (last 24 hours): Temp Pulse Resp BP Pulse Ox 97.9 F 64 20 125/72 98 09/16/16 08:08 09/16/16 08:08 09/16/16 08:08 09/16/16 08:08 09/16/16 08:08 - Medications Medications: Current Medications Acetaminophen (Tylenol 650mg/20.3ml Solution Ud) 650 mg PO Q4 PRN PRN Reason: Headache Last Admin: 09/08/16 06:07 Dose: 650 mg Clopidogrel Bisulfate (Plavix) 75 mg PO DAILY [facility] Last Admin: 09/07/16 10:26 Dose: Not Given Epoetin Phil (Procrit) 10,000 unit IV TTS [facility] Heparin Sodium (Porcine) (Heparin) 5,000 units SC Q12 [facility] Last Admin: 09/05/16 09:00 Dose: 5,000 units Midodrine (Proamatine) 10 mg PO TID [facility] Last Admin: 09/16/16 13:54 Dose: Not Given Oxycodone/Acetaminophen (Percocet 5/325 Mg Tab) 1 tab PO Q4H PRN PRN Reason: Pain, moderate (4-7) Stop: 09/17/16 14:18 Last Admin: 09/16/16 04:44 Dose: 1 tab Potassium Phos/Sodium Phos (Neutra-Phos) 1 pkt PO Q12H [facility] Last Admin: 09/16/16 10:00 Dose: Not Given - Labs Labs: 09/16/16 12:04 09/16/16 12:04 PT 13.1 SECONDS (9.7-12.2) H 09/08/16 07:28 INR 1.1 09/08/16 07:28 APTT 36 SECONDS (21-34) H D 09/08/16 07:28
[2016-09-16 20:59] VITALS: BP 115/69; PULSE 85; O2SAT 96
== END 2016-09-16 21:03 | disposition home or self-care (01) | DRG 207 ==
LOC: C.ER 22:43 → C.9I 09-01 01:09 → C.5T 09-13 18:45
PROVIDERS: ADMIT Internal Medicine Nephrology; ATTEND Internal Medicine Nephrology
PROC: 5A1955Z Respiratory Ventilation, Greater than 96 Consecutive Hours (ICD-10-PCS; principal; 2016-09-01)
PROC: 5A1D60Z (ICD-10-PCS; 2016-09-01)
PROC: 30233R1 Transfusion of Nonautologous Platelets into Peripheral Vein, Percutaneous Approach (ICD-10-PCS; 2016-09-08)
PROC: 0W9B3ZZ Drainage of Left Pleural Cavity, Percutaneous Approach (ICD-10-PCS; 2016-09-11)
DX: J96.01 Acute respiratory failure with hypoxia (principal); J18.9 Pneumonia, unspecified organism; D61.818 Other pancytopenia; T86.12 Kidney transplant failure; D70.9 Neutropenia, unspecified; D68.9 Coagulation defect, unspecified; I12.0 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 kidney disease or end stage renal disease; N18.6 End stage renal disease; J44.0 Chronic obstructive pulmonary disease with (acute) lower respiratory infection; I50.9 Heart failure, unspecified; M34.9 Systemic sclerosis, unspecified; I48.0 Paroxysmal atrial fibrillation; M81.0 Age-related osteoporosis without current pathological fracture; I25.10 Atherosclerotic heart disease of native coronary artery without angina pectoris; E78.5 Hyperlipidemia, unspecified; D63.1 Anemia in chronic kidney disease; F32.9 Major depressive disorder, single episode, unspecified; I27.2 Other secondary pulmonary hypertension; G89.29 Other chronic pain; L30.9 Dermatitis, unspecified; I25.5 Ischemic cardiomyopathy; Z99.2 Dependence on renal dialysis; Z79.01 Long term (current) use of anticoagulants; Z95.0 Presence of cardiac pacemaker

== ENCOUNTER 2016-09-23 13:20 | Inpatient (IN) | payer MEDICARE, OTHER ==
[2016-09-23 13:20] VITALS: PULSE 146; BMI 25.0
--- NOTE | 2016-09-23 13:58 | C.PDOC ---
History Of Present Illness Patient is a 66 y/o female,whose PMHx includes Afib, HTN, systemic sclerosis, pancreatitis, that presents to the ED for evaluation of left sided chest pain/ sob, weakness/and body aches. Patient states that her symptoms started during hd. pt reports she completed "most of hd"Patient is a poor historian. noted prolonged hospital course, with respiratory failure. translation provided by NOAH rodriguez. pt denies fevers, n/v/d. Time Seen by Provider: 09/23/16 13:33 Chief Complaint (Nursing): Pain, Chronic History Per: Patient History/Exam Limitations: no limitations Current Symptoms Are (Timing): Still Present Past Medical History Vital Signs: Last Vital Signs Temp 97.3 F L 09/23/16 14:59 Pulse 77 09/23/16 14:59 Resp 24 09/23/16 14:59 BP 118/52 L 09/23/16 14:59 Pulse Ox 100 09/23/16 14:59 - Medical History PMH: Anemia, Arthritis, Atrial Fibrillation, CAD, Cardia Arrhythmia, COPD, Depression, HTN, Hyperlipidemia, Migraine, Osteoporosis, Pancreatitis, Peripheral Edema, End Stage Renal Disease, Chronic Kidney Disease Denies: Hypercholesterolemia, Rheumatoid Arthritis, Sexually Transmitted Disease Comment Only: CHF (CAD, A-fib) Surgical History: Cholecystectomy, Endoscopy, Pacemaker - [facility] Procedures ANGIOPLASTY OF OTHER NON-CORONARY VESSEL(S) (12/04/13) DIALYSIS ARTERIOVENOSTOM (12/04/13) DRAINAGE OF LEFT PLEURAL CAVITY, PERCUTANEOUS APPROACH (09/01/16) FLEXIBLE SIGMOIDOSCOPY (07/30/14) FLUOROSCOPY OF LEFT HEART USING LOW OSMOLAR CONTRAST (02/01/16) FLUOROSCOPY OF MULT COR ART USING L OSM CONTRAST (02/01/16) HEMODIALYSIS (09/30/14) INSEJ [id number] PERIPHERAL NON-CORONARY VES STENT(S) (12/04/13) INSERTION OF ONE VASCULAR STENT (12/04/13) MEASURE OF CARDIAC SAMPL & PRESSURE, L HEART, PERC APPROACH (02/01/16) OTHER ENDOSCOPY OF SM INTEST (07/30/14) PACKED CELL TRANSFUSION (09/30/14) PERFORMANCE OF URINARY FILTRATION, MULTIPLE (09/01/16) PERFORMANCE OF URINARY FILTRATION, SINGLE (05/02/16) PROCEDURE ON SINGLE VESSEL (12/04/13) RESPIRATORY VENTILATION, GREATER THAN 96 CONSECUTIVE HOURS (09/01/16) TRANSFUSE NONAUT PLATELETS IN PERIPH VEIN, PERC (09/01/16) VASC PROC REVISION NEC (12/04/13) VENOUS CATHETERIZATION FOR RENAL DIALYSIS (12/04/13) Family History: States: Unknown Family Hx - Social History Hx Tobacco Use: No Hx Alcohol Use: No Hx Substance Use: No - Immunization History Hx Tetanus Toxoid Vaccination: Yes Hx Influenza Vaccination: Yes Hx Pneumococcal Vaccination: Yes Physical Exam - Physical Exam Appears: Non-toxic, No Acute Distress, Other (cachectic female) Skin: Normal Color, Warm, Dry Head: Atraumatic, Normacephalic Eye(s): bilateral: Normal Inspection, EOMI Neck: Normal ROM, Supple Chest: Symmetrical, No Tenderness Cardiovascular: Rhythm Regular, No Murmur Respiratory: Normal Breath Sounds, No Accessory Muscle Use, No Rales, No Rhonchi , No Wheezing Gastrointestinal/Abdominal: Soft, No Tenderness Neurological/Psych: Oriented x3, Normal Speech, Normal Cognition ED Course And Treatment - Laboratory Results Result Diagrams: 09/23/16 14:29 09/23/16 14:29 ECG: Interpreted By Me, Viewed By Me ECG Rhythm: Sinus Rhythm, R BBB ECG Interpretation: No Acute Changes Rate From EC (bpm) Progress Note: EKG, CXR, labs ordered and reviewed. Patient was given Aspirin, and Toradol in the ER. Medical Decision Making Medical Decision Making: r/o infectious, cardiac, chf etiology of symptoms,- labs imaging pending 300: cxr: b/l pleural effusion, minimal interval change. pt reports completing "most of hd today" . noted minimally elevated lipase, h/o of pancreatitis. pt may need additional hd, as cxr shows b/l large pleural effusion. 1st set neg. asa given. Disposition - Disposition Disposition: HOSPITALIZED Disposition Time: 15:05 Condition: FAIR - Clinical Impression Clinical Impression: Chest pain, CHF (congestive heart failure), ESRD (end stage renal disease), Elevated lipase - Scribe Statement The provider has reviewed the documentation as recorded by the Rosaleeibmilton Newell All medical record entries made by the Scribe were at my direction and personally dictated by me. I have reviewed the chart and agree that the record accurately reflects my personal performance of the history, physical exam, medical decision making, and the department course for this patient. I have also personally directed, reviewed, and agree with the discharge instructions and disposition. Decision To Admit - Pt Status Changed To: Hospital Disposition Of: Inpatient - Admit Certification Admit to Inpatient:: After my assessment, the patient will require hospitalization for at least two midnights. This is because of the severity of symptoms shown, intensity of services needed, and/or the medical risk in this patient being treated as an outpatient. - InPatient: Physician Admission Certification: I certify that this patient requires 2 or more midnights of care for the following reason:: pt with large pleural effusions, may need additional hd, chest pain, multiple risk factors. - . Bed Request Type: Telemetry Admitting Physician: Porsha Newell Patient Diagnosis: Chest pain, CHF (congestive heart failure), ESRD (end stage renal disease), Elevated lipase
[2016-09-23 14:39] LABS: VENOUS BLOOD GAS BASE EXCESS -3.9 mmol/L (0.0-2.0); VENOUS BLOOD GAS PCO2 43 mmHg (40-60); VENOUS BLOOD GAS PO2 28 mm/Hg (30-55); VENOUS BLOOD PH 7.32 (7.32-7.43)
[2016-09-23 14:42] LABS: EOS # 0.1 K/uL (0.0-0.7); EOS % 1.3 % (0.0-4.0); HEMOGLOBIN 9.4 g/dL (11.0-16.0); LYMPH # 0.6 K/uL (1.0-4.3); LYMPH % 15.3 % (20.0-40.0); MEAN CORPUSCULAR HEMOGLOBIN 33.6 pg (27.0-31.0); MEAN CORPUSCULAR HGB CONC 31.4 g/dL (33.0-37.0); MONO # 0.4 K/uL (0.0-0.8); MONO % 9.2 % (0.0-10.0); NEUT # 2.8 K/uL (1.8-7.0); NEUT % 73.2 % (50.0-75.0); NRBC % 0.1 % (0.0-2.0); RBC 2.81 Mil/uL (3.80-5.20); RED CELL DISTRIBUTION WIDTH 17.6 % (11.5-14.5); WHITE BLOOD COUNT 3.9 K/uL (4.8-10.8)
[2016-09-23 14:45] LABS: ALBUMIN 4.2 g/dL (3.5-5.0)
[2016-09-23 14:49] LABS: ALB/GLOB RATIO 0.8 (1.0-2.1); CALCIUM 8.5 mg/dl (8.6-10.4)
[2016-09-23 14:54] LABS: INR 1.8
[2016-09-23 14:56] LABS: PROTHROMBIN TIME 20.5 SECONDS (9.7-12.2)
[2016-09-23 15:00] LABS: TROPONIN I 0.014 ng/mL (0.00-0.120)
--- NOTE | 2016-09-23 15:47 | RAD ---
PROCEDURE: CHEST RADIOGRAPH, 1 VIEW HISTORY: chest pain COMPARISON: 08/31/2016 FINDINGS: LUNGS: Severe venous congestion with prominent bilateral pleural effusions as well as confluent airspace consolidative changes in the mid to lower lung zones. Biapical pleural thickening with upper lobe granulomatous changes. Left-sided pacemaker. Cardiomegaly. Left-sided vascular stent in place. Radiopaque density projects over the left lung apex, of uncertain clinical etiology. Clinical correlation. PLEURA: As above. CARDIOVASCULAR: Cardiomegaly. OSSEOUS STRUCTURES: No significant abnormalities. VISUALIZED UPPER ABDOMEN: Normal. OTHER FINDINGS: None. IMPRESSION: Severe venous congestion with prominent bilateral pleural effusions as well as confluent airspace consolidative changes in the mid to lower lung zones. Biapical pleural thickening with upper lobe granulomatous changes. Left-sided pacemaker. Cardiomegaly. Left-sided vascular stent in place. Radiopaque density projects over the left lung apex, of uncertain clinical etiology. Clinical correlation.
--- NOTE | 2016-09-23 16:58 | CP.PCM.HP ---
Past Patient History - Infectious Disease Hx of Infectious Diseases: None - Tetanus Immunizations Tetanus Immunization: Unknown - Past Medical History & Family History Past Medical History?: Yes - Past Social History Smoking Status: Never Smoked - CARDIAC Hx Atrial Fibrillation: Yes Hx Cardia Arrhythmia: Yes Hx Congestive Heart Failure: (CAD, A-fib) Hx Hypercholesterolemia: No Hx Hypertension: Yes Hx Pacemaker: Yes Hx Peripheral Edema: Yes - PULMONARY Hx Chronic Obstructive Pulmonary Disease (COPD): Yes - NEUROLOGICAL Hx Migraine: Yes - HEENT Hx HEENT Problems: Yes Hx Glaucoma: Yes (rt eye) - RENAL Hx Chronic Kidney Disease: Yes - ENDOCRINE/METABOLIC Hx Endocrine Disorders: No - HEMATOLOGICAL/ONCOLOGICAL Hx Anemia: Yes - INTEGUMENTARY Hx Dermatological Problems: Yes (nephrogenic sclerosis,Scleroderma) Other/Comment: SCLERODERMA - MUSCULOSKELETAL/RHEUMATOLOGICAL Hx Arthritis: Yes Hx Osteoporosis: Yes Hx Rheumatoid Arthritis: No - GASTROINTESTINAL Hx Pancreatitis: Yes - GENITOURINARY/GYNECOLOGICAL Hx Sexually Transmitted Disorders: No - PSYCHIATRIC Hx Depression: Yes Hx Substance Use: No - SURGICAL HISTORY Hx Cholecystectomy: Yes - ANESTHESIA Hx Anesthesia: Yes Hx Anesthesia Reactions: No Hx Malignant Hyperthermia: No Meds Allergies/Adverse Reactions: Allergies Allergy/AdvReac Type Severity Reaction Status Date / Time vancomycin Allergy Severe ITCHING Verified 05/10/16 06:40 budesonide [From Symbicort] Allergy ITCHING Verified 08/31/16 22:56 formoterol [From Symbicort] Allergy ITCHING Verified 08/31/16 22:56 Results - Vital Signs Recent Vital Signs: Last Vital Signs Temp 97.3 F L 09/23/16 14:59 Pulse 77 09/23/16 14:59 Resp 24 09/23/16 14:59 BP 118/52 L 09/23/16 14:59 Pulse Ox 100 09/23/16 14:59 - Labs Result Diagrams: 09/23/16 14:29 09/23/16 14:29
[2016-09-23] MEDS: Oxycodone/Acetaminophen 5/325 mg Tab PO PRN (20:21)
[2016-09-23 23:53] LABS: CK-MB 0.98 ng/mL (0.0-3.38)
[2016-09-24] MEDS: Oxycodone/Acetaminophen 5/325 mg Tab PO PRN ×3 (02:21→19:15)
[2016-09-24 09:23] VITALS: RESP 20
--- NOTE | 2016-09-24 12:15 | CP.PCM.CON ---
History of Present Illness - History of Present Illness History of Present Illness: I was asked to see patient by DR Newell. Patient is a 66 year old female with PMH HTN, ESRD on HD s/p PPM who presents with chest pain. Patient describes left sided chest pressure. Symtpoms occurred during dialysis. The patient has had previous admissions for chest pain. Cardiac catheterizaiton was performed in January to 2015 for evaluation of chest pain. There was no signficant CAD. Left ventricular function is normal. Review of Systems - Constitutional Constitutional: absent: As Per HPI, Anorexia, Chills, Daytime Sleepiness, Excessive Sweating, Fatigue, Fever, Frequent Falls, Headache, Increased Appetite , Lethargy, Malaise, Night Sweats, Snoring, Sleep Apnea, Weight Gain, Weight Loss, Weakness, Other - EENT Eyes: absent: As Per HPI, Blind Spots, Blurred Vision, Change in Vision, Decreased Night Vision, Diplopia, Discharge, Dry Eye, Exophthalmos, Floaters, Irritation, Itchy Eyes, Loss of Peripheral Vision, Pain, Photophobia, Requires Corrective Lenses, Sees Flashes, Spots in Vision, Tunnel Vision, Other Visual Disturbances, Loss of Vision, Other Ears: absent: As Per HPI, Decreased Hearing, Ear Discharge, Ear Pain, Tinnitus, Abnormal Hearing, Disequilibrium, Dizziness, Other Nose/Mouth/Throat: absent: As Per HPI, Epistaxis, Nasal Congestion, Nasal Discharge, Nasal Obstruction, Nasal Trauma, Nose Pain, Post Nasal Drip, Sinus Pain, Sinus Pressure, Bleeding Gums, Change in Voice, Dental Pain, Dry Mouth, Dysphagia, Halitosis, Hoarsness, Lip Swelling, Mouth Lesions, Mouth Pain, Odynophagia, Sore Throat, Throat Swelling, Tongue Swelling, Facial Pain, Neck Pain, Neck Mass, Other - Cardiovascular Cardiovascular: Chest Pain - Respiratory Respiratory: absent: As Per HPI, Cough, Dyspnea, Hemoptysis, Dyspnea on Exertion , Wheezing, Snoring, Stridor, Pain on Inspiration, Chest Congestion, Excessive Mucous Production, Change in Mucous Color, Pain with Coughing, Other - Gastrointestinal Gastrointestinal: absent: As Per HPI, Abdominal Pain, Belching, Bloating, Change in Bowel Habits, Change in Stool Character, Coffee Ground Emesis, Constipation, Cramping, Diarrhea, Dyspepsia, Dysphagia, Early Satiety, Excessive Flatus, Fecal Incontinence, Heartburn, Hematemesis, Hematochezia, Loose Stools, Melena, Nausea, Odynophagia, Temesmus, Vomiting, Other - Genitourinary Genitourinary: absent: As Per HPI, Change in Urinary Stream, Difficulty Urinating, Dysuria, Flank Pain, Hematuria, Pyuria, Nocturia, Urinary Incontinence, Urinary Frequency, Urinary Hesitance, Urinary Urgency, Voiding Freq/Small Amts, Freq UTI, Hx Renal/Bladder Calculi, Hx /Renal Surgery, Bladder Distension, Other - Musculoskeletal Musculoskeletal: absent: As Per HPI, Abnormal Gait, Arthralgias, Atrophy, Back Pain, Deformity, Joint Swelling, Limited Range of Motion, Loss of Height, Muscle Cramps, Muscle Weakness, Myalgias, Neck Pain, Numbness, Radiating Pain into Limb, Stiffness, Tingling, Other - Integumentary Integumentary: absent: As Per HPI, Acne, Alopecia, Bleeding Lesions, Change in Hair, Change in Nails, Change in Pigmentation, Changing Lesions, Dry Skin, Erythema, Furuncle, Hirsutism, Lesions, New Lesions, Non-Healing Lesions, Photosensitivity, Pruritus, Rash, Skin Pain, Skin Ulcer, Sores, Striae, Swelling , Unusual Bruising, Wounds, Jaundice, Other - Neurological Neurological: absent: As Per HPI, Abnormal Gait, Abnormal Hearing, Abnormal Movements, Abnormal Speech, Behavioral Changes, Burning Sensations, Confusion, Convulsions, Disequilibrium, Dizziness, Numbness, Focal Weakness, Frequent Falls , Headaches, Lack of Coordination, Loss of Vision, Memory Loss, Paresthesias, Radicular Pain, Restless Legs, Sensory Deficit, Syncope, Tingling, Tremor, Vertigo, Weakness, Other Visual Disturbances, Other - Psychiatric Psychiatric: absent: As Per HPI, Abnormal Sleep Pattern, Anhedonia, Anxiety, Auditory Hallucinations, Behavioral Changes, Change in Appetite, Change in Libido, Confusion, Depression, Difficulty Concentrating, Hallucinations, Homicidal Ideation, Hopelessness, Irritability, Memory Loss, Mood Swings, Panic Attacks, Paranoia, Suicidal Ideation, Visual Hallucinations, Tactile Hallucinations, Other - Endocrine Endocrine: absent: As Per HPI, Change in Body Appearance, Change in Libido, Cold Intolorance, Deepening of Voice, Excessive Sweating, Fatigue, Flushing, Heat Intolorance, Increase in Ring/Shoe/Hat Size, Palpitations, Polydipsia, Polyphagia, Polyuria, Other - Hematologic/Lymphatic Hematologic: absent: As Per HPI, Easy Bleeding, Easy Bruising, Lymphadenopathy, Other Past Patient History - Infectious Disease Hx of Infectious Diseases: None - Tetanus Immunizations Tetanus Immunization: Unknown - Past Medical History & Family History Past Medical History?: Yes - Past Social History Smoking Status: Former Smoker - CARDIAC Hx Atrial Fibrillation: Yes Hx Cardia Arrhythmia: Yes Hx Congestive Heart Failure: (CAD, A-fib) Hx Hypercholesterolemia: No Hx Hypertension: Yes Hx Pacemaker: Yes Hx Peripheral Edema: Yes - PULMONARY Hx Chronic Obstructive Pulmonary Disease (COPD): Yes - NEUROLOGICAL Hx Migraine: Yes - HEENT Hx HEENT Problems: Yes Hx Glaucoma: Yes (rt eye) - RENAL Hx Chronic Kidney Disease: Yes - ENDOCRINE/METABOLIC Hx Endocrine Disorders: No - HEMATOLOGICAL/ONCOLOGICAL Hx Anemia: Yes - INTEGUMENTARY Hx Dermatological Problems: Yes (nephrogenic sclerosis,Scleroderma) Other/Comment: SCLERODERMA - MUSCULOSKELETAL/RHEUMATOLOGICAL Hx Arthritis: Yes Hx Falls: No Hx Osteoporosis: Yes Hx Rheumatoid Arthritis: No - GASTROINTESTINAL Hx Pancreatitis: Yes - GENITOURINARY/GYNECOLOGICAL Hx Sexually Transmitted Disorders: No - PSYCHIATRIC Hx Depression: Yes Hx Substance Use: No - SURGICAL HISTORY Hx Cholecystectomy: Yes - ANESTHESIA Hx Anesthesia: Yes Hx Anesthesia Reactions: No Hx Malignant Hyperthermia: No Meds Allergies/Adverse Reactions: Allergies Allergy/AdvReac Type Severity Reaction Status Date / Time vancomycin Allergy Severe ITCHING Verified 05/10/16 06:40 budesonide [From Symbicort] Allergy ITCHING Verified 08/31/16 22:56 formoterol [From Symbicort] Allergy ITCHING Verified 08/31/16 22:56 - Medications Medications: Current Medications Amlodipine Besylate (Norvasc) 5 mg PO DAILY [facility] Last Admin: 09/24/16 10:21 Dose: 5 mg Aspirin (Ecotrin) 81 mg PO DAILY [facility] Last Admin: 09/24/16 10:21 Dose: 81 mg Calcium Acetate (Phoslo) 667 mg PO BIDCC [facility] Last Admin: 09/24/16 10:22 Dose: 667 mg Clopidogrel Bisulfate (Plavix) 75 mg PO DAILY [facility] Last Admin: 09/24/16 10:21 Dose: 75 mg Famotidine (Pepcid) 20 mg PO DAILY [facility] Last Admin: 09/24/16 10:22 Dose: 20 mg Gabapentin (Neurontin) 300 mg PO DAILY [facility] Last Admin: 09/24/16 10:22 Dose: 300 mg Isosorbide Dinitrate (Isordil) 20 mg PO DAILY [facility] Last Admin: 09/24/16 10:22 Dose: 20 mg Metoprolol Tartrate (Lopressor) 25 mg PO BID [facility] Last Admin: 09/24/16 10:21 Dose: 25 mg Oxycodone/Acetaminophen (Percocet 5/325 Mg Tab) 1 tab PO Q6H PRN PRN Reason: Pain, moderate (4-7) Stop: 09/26/16 20:02 Oxycodone/Acetaminophen (Percocet 5/325 Mg Tab) 2 tab PO Q6H PRN PRN Reason: Pain, severe (8-10) Stop: 09/26/16 20:04 Last Admin: 09/24/16 10:13 Dose: 2 tab Prochlorperazine (Compazine Tab) 10 mg PO BID [facility] Sevelamer Carbonate (Renvela) 2,400 mg PO TID [facility] Last Admin: 09/24/16 10:19 Dose: 2,400 mg Sucralfate (Carafate Tab) 1 gm PO TID [facility] Last Admin: 09/24/16 10:23 Dose: 1 gm Physical Exam - Constitutional Appears: Non-toxic - Head Exam Head Exam: NORMAL INSPECTION - Eye Exam Eye Exam: Normal appearance - ENT Exam ENT Exam: Mucous Membranes Moist - Neck Exam Neck exam: Positive for: Full Rom - Respiratory Exam Respiratory Exam: Decreased Breath Sounds - Cardiovascular Exam Cardiovascular Exam: REGULAR RHYTHM - GI/Abdominal Exam GI & Abdominal Exam: Normal Bowel Sounds - Rectal Exam Rectal Exam: Deferred - Extremities Exam Extremities exam: Positive for: pedal edema - Back Exam Back exam: NORMAL INSPECTION - Neurological Exam Neurological exam: Alert, Oriented x3 - Psychiatric Exam Psychiatric exam: Normal Affect - Skin Skin Exam: Normal Color Results - Vital Signs Recent Vital Signs: Last Vital Signs Temp 98.0 F 09/24/16 09:22 Pulse 69 09/24/16 09:22 Resp 20 09/24/16 09:22 BP 125/76 09/24/16 10:21 Pulse Ox 99 09/24/16 09:22 - Labs Result Diagrams: 09/23/16 14:29 09/23/16 14:29 Labs: Laboratory Results - last 24 hr 09/23/16 23:01 Total Creatine Kinase 44 CK-MB (Mass) 0.98 Troponin I, Quant 0.0200 - EKG Data EKG Interpreted by: Myself Assessment & Plan (1) Chest pain Assessment and Plan: patient has no signifcant CAD from cardiac cath less than one year ago. can check cardiac enzymes, but chest pain is likely not cardiac. Status: Acute (2) Benign hypertension with ESRD (end-stage renal disease) Assessment and Plan: blood pressure control Status: Chronic
--- NOTE | 2016-09-24 21:00 | CP.PCM.HP ---
Past Patient History - Infectious Disease Hx of Infectious Diseases: None - Tetanus Immunizations Tetanus Immunization: Unknown - Past Medical History & Family History Past Medical History?: Yes - Past Social History Smoking Status: Former Smoker - CARDIAC Hx Atrial Fibrillation: Yes Hx Cardia Arrhythmia: Yes Hx Congestive Heart Failure: (CAD, A-fib) Hx Hypercholesterolemia: No Hx Hypertension: Yes Hx Pacemaker: Yes Hx Peripheral Edema: Yes - PULMONARY Hx Chronic Obstructive Pulmonary Disease (COPD): Yes - NEUROLOGICAL Hx Migraine: Yes - HEENT Hx HEENT Problems: Yes Hx Glaucoma: Yes (rt eye) - RENAL Hx Chronic Kidney Disease: Yes - ENDOCRINE/METABOLIC Hx Endocrine Disorders: No - HEMATOLOGICAL/ONCOLOGICAL Hx Anemia: Yes - INTEGUMENTARY Hx Dermatological Problems: Yes (nephrogenic sclerosis,Scleroderma) Other/Comment: SCLERODERMA - MUSCULOSKELETAL/RHEUMATOLOGICAL Hx Arthritis: Yes Hx Falls: No Hx Osteoporosis: Yes Hx Rheumatoid Arthritis: No - GASTROINTESTINAL Hx Pancreatitis: Yes - GENITOURINARY/GYNECOLOGICAL Hx Sexually Transmitted Disorders: No - PSYCHIATRIC Hx Depression: Yes Hx Substance Use: No - SURGICAL HISTORY Hx Cholecystectomy: Yes - ANESTHESIA Hx Anesthesia: Yes Hx Anesthesia Reactions: No Hx Malignant Hyperthermia: No Meds Allergies/Adverse Reactions: Allergies Allergy/AdvReac Type Severity Reaction Status Date / Time vancomycin Allergy Severe ITCHING Verified 05/10/16 06:40 budesonide [From Symbicort] Allergy ITCHING Verified 08/31/16 22:56 formoterol [From Symbicort] Allergy ITCHING Verified 08/31/16 22:56 Physical Exam - Constitutional Appears: Well - Head Exam Head Exam: ATRAUMATIC, NORMAL INSPECTION, NORMOCEPHALIC - Eye Exam Eye Exam: EOMI, Normal appearance, PERRL Pupil Exam: NORMAL ACCOMODATION, PERRL - ENT Exam ENT Exam: Mucous Membranes Moist, Normal Exam - Neck Exam Neck exam: Positive for: Normal Inspection - Respiratory Exam Respiratory Exam: Decreased Breath Sounds - Cardiovascular Exam Cardiovascular Exam: REGULAR RHYTHM, +S1, +S2 - GI/Abdominal Exam GI & Abdominal Exam: Diminished Bowel Sounds, Soft - Rectal Exam Rectal Exam: Deferred Results - Vital Signs Recent Vital Signs: Last Vital Signs Temp 97.5 F L 09/24/16 16:00 Pulse 60 09/24/16 16:00 Resp 20 09/24/16 16:00 BP 96/52 L 09/24/16 16:00 Pulse Ox 96 09/24/16 16:00 - Labs Result Diagrams: 09/23/16 14:29 09/23/16 14:29 Labs: Laboratory Results - last 24 hr 09/23/16 23:01 Total Creatine Kinase 44 CK-MB (Mass) 0.98 Troponin I, Quant 0.0200
--- NOTE | 2016-09-24 21:01 | CP.PCM.PN ---
Subjective - Date & Time of Evaluation Date of Evaluation: 09/24/16 Time of Evaluation: 11:20 - Subjective Subjective: clinically same Objective - Vital Signs/Intake and Output Vital Signs (last 24 hours): Temp Pulse Resp BP Pulse Ox 97.5 F L 60 20 96/52 L 96 09/24/16 16:00 09/24/16 16:00 09/24/16 16:00 09/24/16 16:00 09/24/16 16:00 - Medications Medications: Current Medications Amlodipine Besylate (Norvasc) 5 mg PO DAILY [facility] Last Admin: 09/24/16 10:21 Dose: 5 mg Aspirin (Ecotrin) 81 mg PO DAILY [facility] Last Admin: 09/24/16 10:21 Dose: 81 [facility] Last Admin: 09/24/16 18:00 Dose: 667 mg Clopidogrel Bisulfate (Plavix) 75 mg PO DAILY [facility] Last Admin: 09/24/16 10:21 Dose: 75 mg Famotidine (Pepcid) 20 mg PO DAILY [facility] Last Admin: 09/24/16 10:22 Dose: 20 mg Gabapentin (Neurontin) 300 mg PO DAILY [facility] Last Admin: 09/24/16 10:22 Dose: 300 mg Isosorbide Dinitrate (Isordil) 20 mg PO DAILY [facility] Last Admin: 09/24/16 10:22 Dose: 20 mg Loperamide HCl (Imodium) 2 mg PO TID PRN PRN Reason: Diarrhea Metoprolol Tartrate (Lopressor) 25 mg PO BID [facility] Last Admin: 09/24/16 10:21 Dose: 25 mg Oxycodone/Acetaminophen (Percocet 5/325 Mg Tab) 1 tab PO Q6H PRN PRN Reason: Pain, moderate (4-7) Stop: 09/26/16 20:02 Last Admin: 09/24/16 19:15 Dose: 1 tab Oxycodone/Acetaminophen (Percocet 5/325 Mg Tab) 2 tab PO Q6H PRN PRN Reason: Pain, severe (8-10) Stop: 09/26/16 20:04 Last Admin: 09/24/16 10:13 Dose: 2 tab Prochlorperazine (Compazine Tab) 10 mg PO BID [facility] Last Admin: 09/24/16 18:44 Dose: 10 mg Sevelamer Carbonate (Renvela) 2,400 mg PO TID [facility] Last Admin: 09/24/16 18:42 Dose: 2,400 mg Sucralfate (Carafate Tab) 1 gm PO TID [facility] Last Admin: 09/24/16 18:43 Dose: 1 gm - Labs Labs: PT 20.5 SECONDS (9.7-12.2) H 09/23/16 14:29 INR 1.8 09/23/16 14:29 APTT 35 SECONDS (21-34) H 09/23/16 14:29 - Constitutional Appears: Well - Head Exam Head Exam: ATRAUMATIC, NORMAL INSPECTION, NORMOCEPHALIC - Eye Exam Eye Exam: EOMI, Normal appearance, PERRL Pupil Exam: NORMAL ACCOMODATION, PERRL - ENT Exam ENT Exam: Mucous Membranes Moist, Normal Exam - Neck Exam Neck Exam: Full ROM, Normal Inspection. absent: Lymphadenopathy - Respiratory Exam Respiratory Exam: Decreased Breath Sounds - Cardiovascular Exam Cardiovascular Exam: REGULAR RHYTHM, +S1, +S2 - GI/Abdominal Exam GI & Abdominal Exam: Soft, Diminished Bowel Sounds - Rectal Exam Rectal Exam: Deferred
[2016-09-25] MEDS: Albuterol-Ipratrop 3 mg / 0.5 (3 ml) UD INH SCH ×4 (01:38→19:11)
[2016-09-25] MEDS: Oxycodone/Acetaminophen 5/325 mg Tab PO PRN ×2 (02:05→14:25)
[2016-09-25 12:05] LABS: BASO % 0.8 % (0.0-2.0); EOS # 0.1 K/uL (0.0-0.7); EOS % 1.8 % (0.0-4.0); HEMOGLOBIN 8.1 g/dL (11.0-16.0); LYMPH # 0.5 K/uL (1.0-4.3); LYMPH % 15.7 % (20.0-40.0); MEAN CELL VOLUME 108.4 fL (81.0-99.0); MEAN CORPUSCULAR HEMOGLOBIN 33.3 pg (27.0-31.0); MEAN CORPUSCULAR HGB CONC 30.8 g/dL (33.0-37.0); MEAN PLATELET VOLUME 9.8 fL (7.2-11.7); MONO # 0.3 K/uL (0.0-0.8); MONO % 9.8 % (0.0-10.0); NEUT # 2.2 K/uL (1.8-7.0); NEUT % 71.9 % (50.0-75.0); NRBC % 0.1 % (0.0-2.0); RBC 2.42 Mil/uL (3.80-5.20); RED CELL DISTRIBUTION WIDTH 17.9 % (11.5-14.5)
[2016-09-25 12:12] LABS: ALBUMIN 3.7 g/dL (3.5-5.0)
[2016-09-25 12:15] LABS: ALB/GLOB RATIO 0.9 (1.0-2.1); CALCIUM 8.2 mg/dl (8.6-10.4)
--- NOTE | 2016-09-25 13:35 | CARD ---
APPROVED REPORT EKG Measurement Heart [id number] <Conclusion> Normal sinus rhythm Right bundle branch block Abnormal ECG
--- NOTE | 2016-09-25 15:13 | CP.PCM.PN ---
Subjective - Date & Time of Evaluation Date of Evaluation: 09/25/16 Time of Evaluation: 12:40 - Subjective Subjective: clinically same Objective - Vital Signs/Intake and Output Vital Signs (last 24 hours): Temp Pulse Resp BP Pulse Ox 98.1 F 66 20 101/59 L 98 09/24/16 23:23 09/25/16 12:44 09/24/16 23:23 09/25/16 10:20 09/24/16 23:23 Intake and Output: 09/25/16 09/25/16 06:59 18:59 Intake Total 490 420 Balance 490 420 - Medications Medications: Current Medications Albuterol/Ipratropium (Duoneb 3 Mg/0.5 Mg (3 Ml) Ud) 3 ml INH RQ6 [facility] Last Admin: 09/25/16 14:00 Dose: 3 ml Amlodipine Besylate (Norvasc) 5 mg PO DAILY [facility] Last Admin: 09/25/16 13:52 Dose: 5 mg Aspirin (Ecotrin) 81 mg PO DAILY [facility] Last Admin: 09/25/16 10:21 Dose: 81 mg [facility] Last Admin: 09/25/16 08:40 Dose: 667 mg Clopidogrel Bisulfate (Plavix) 75 mg PO DAILY [facility] Last Admin: 09/25/16 10:21 Dose: 75 mg Famotidine (Pepcid) 20 mg PO DAILY [facility] Last Admin: 09/25/16 10:21 Dose: 20 mg Gabapentin (Neurontin) 300 mg PO DAILY [facility] Last Admin: 09/25/16 09:55 Dose: 300 mg Isosorbide Dinitrate (Isordil) 20 mg PO DAILY [facility] Last Admin: 09/25/16 13:50 Dose: 20 mg Loperamide HCl (Imodium) 2 mg PO TID PRN PRN Reason: Diarrhea Last Admin: 09/25/16 13:56 Dose: 2 mg Metoprolol Tartrate (Lopressor) 25 mg PO BID [facility] Last Admin: 09/25/16 10:20 Dose: 25 mg Oxycodone/Acetaminophen (Percocet 5/325 Mg Tab) 1 tab PO Q6H PRN PRN Reason: Pain, moderate (4-7) Stop: 09/26/16 20:02 Last Admin: 09/25/16 14:25 Dose: 1 tab Oxycodone/Acetaminophen (Percocet 5/325 Mg Tab) 2 tab PO Q6H PRN PRN Reason: Pain, severe (8-10) Stop: 09/26/16 20:04 Last Admin: 09/25/16 02:05 Dose: 2 tab Prochlorperazine (Compazine Tab) 10 mg PO BID [facility] Last Admin: 09/25/16 10:21 Dose: 10 mg Sevelamer Carbonate (Renvela) 2,400 mg PO TID [facility] Last Admin: 09/25/16 13:48 Dose: 2,400 mg Sucralfate (Carafate Tab) 1 gm PO TID [facility] Last Admin: 09/25/16 13:48 Dose: 1 gm - Labs Labs: 09/25/16 11:49 09/25/16 11:49 PT 20.5 SECONDS (9.7-12.2) H 09/23/16 14:29 INR 1.8 09/23/16 14:29 APTT 35 SECONDS (21-34) H 09/23/16 14:29 - Constitutional Appears: Well - Head Exam Head Exam: ATRAUMATIC, NORMAL INSPECTION, NORMOCEPHALIC - Eye Exam Eye Exam: EOMI, Normal appearance, PERRL Pupil Exam: NORMAL ACCOMODATION, PERRL - ENT Exam ENT Exam: Mucous Membranes Moist, Normal Exam - Neck Exam Neck Exam: Full ROM, Normal Inspection. absent: Lymphadenopathy - Respiratory Exam Respiratory Exam: Decreased Breath Sounds - Cardiovascular Exam Cardiovascular Exam: REGULAR RHYTHM, +S1, +S2 - GI/Abdominal Exam GI & Abdominal Exam: Soft, Diminished Bowel Sounds - Rectal Exam Rectal Exam: Deferred
[2016-09-25 16:10] VITALS: BP 99/60; PULSE 61; TEMP 97.3; O2SAT 94
--- NOTE | 2016-09-25 17:23 | CP.PCM.PN ---
Subjective - Date & Time of Evaluation Date of Evaluation: 09/25/16 Time of Evaluation: 17:20 - Subjective Subjective: PGY2 progress note for Dr. Newell Pt is seen and examined at bedside. No acute events overnight. Denies having any CP, SOB, abd pain, N/V/D/C. Patient is tolerating diet. 12 point ROS are negative except for the above mentioned. Objective - Vital Signs/Intake and Output Vital Signs (last 24 hours): Temp Pulse Resp BP Pulse Ox 97.3 F L 61 20 99/60 L 94 L 09/25/16 16:09 09/25/16 16:09 09/25/16 16:09 09/25/16 16:09 09/25/16 16:09 Intake and Output: 09/25/16 09/25/16 06:59 18:59 Intake Total 490 420 Balance 490 420 - Medications Medications: Current Medications Albuterol/Ipratropium (Duoneb 3 Mg/0.5 Mg (3 Ml) Ud) 3 ml INH RQ6 [facility] Last Admin: 09/25/16 14:00 Dose: 3 ml Amlodipine Besylate (Norvasc) 5 mg PO DAILY [facility] Last Admin: 09/25/16 13:52 Dose: 5 mg Aspirin (Ecotrin) 81 mg PO DAILY [facility] Last Admin: 09/25/16 10:21 Dose: 81 mg [facility] Last Admin: 09/25/16 08:40 Dose: 667 mg Clopidogrel Bisulfate (Plavix) 75 mg PO DAILY [facility] Last Admin: 09/25/16 10:21 Dose: 75 mg Famotidine (Pepcid) 20 mg PO DAILY [facility] Last Admin: 09/25/16 10:21 Dose: 20 mg Gabapentin (Neurontin) 300 mg PO DAILY [facility] Last Admin: 09/25/16 09:55 Dose: 300 mg Isosorbide Dinitrate (Isordil) 20 mg PO DAILY [facility] Last Admin: 09/25/16 13:50 Dose: 20 mg Loperamide HCl (Imodium) 2 mg PO TID PRN PRN Reason: Diarrhea Last Admin: 09/25/16 13:56 Dose: 2 mg Metoprolol Tartrate (Lopressor) 25 mg PO BID [facility] Last Admin: 09/25/16 10:20 Dose: 25 mg Oxycodone/Acetaminophen (Percocet 5/325 Mg Tab) 1 tab PO Q6H PRN PRN Reason: Pain, moderate (4-7) Stop: 09/26/16 20:02 Last Admin: 09/25/16 14:25 Dose: 1 tab Oxycodone/Acetaminophen (Percocet 5/325 Mg Tab) 2 tab PO Q6H PRN PRN Reason: Pain, severe (8-10) Stop: 09/26/16 20:04 Last Admin: 09/25/16 02:05 Dose: 2 tab Prochlorperazine (Compazine Tab) 10 mg PO BID [facility] Last Admin: 09/25/16 10:21 Dose: 10 mg Sevelamer Carbonate (Renvela) 2,400 mg PO TID [facility] Last Admin: 09/25/16 13:48 Dose: 2,400 mg Sucralfate (Carafate Tab) 1 gm PO TID [facility] Last Admin: 09/25/16 13:48 Dose: 1 gm - Labs Labs: 09/25/16 11:49 09/25/16 11:49 PT 20.5 SECONDS (9.7-12.2) H 09/23/16 14:29 INR 1.8 09/23/16 14:29 APTT 35 SECONDS (21-34) H 09/23/16 14:29 - Constitutional Appears: Non-toxic, No Acute Distress - Head Exam Head Exam: ATRAUMATIC - Eye Exam Eye Exam: EOMI - ENT Exam ENT Exam: Mucous Membranes Moist - Respiratory Exam Respiratory Exam: Clear to Ausculation Bilateral. absent: Accessory Muscle Use , Rales, Rhonchi, Wheezes, Respiratory Distress - Cardiovascular Exam Cardiovascular Exam: REGULAR RHYTHM, +S1, +S2. absent: Gallop, Rubs, Murmur - GI/Abdominal Exam GI & Abdominal Exam: Soft, Normal Bowel Sounds. absent: Distended, Firm, Guarding, Rigid, Tenderness - Extremities Exam Extremities Exam: absent: Pedal Edema, Tenderness - Neurological Exam Neurological Exam: Alert, Awake, Oriented x3 - Psychiatric Exam Psychiatric exam: Normal Affect, Normal Mood Assessment and Plan - Assessment and Plan (Free Text) Assessment: 66 year old female with past medical history of HTN, ESRD on HD was admitted to [facility]. CXR on admission showed severe venous congestion with prominent B/L pleural effusions. [place] admission [place] [id number]. Cardiology was consulted and states that pt has cardiac cath on 01/2016 which was normal and recommended no intervention at this time. Patient received HD treatments while in the hospital. Patient's condition improved and she was stable for discharge home. Patient is stable for discharge home. Patient is to follow up with PMD, Dr. Newell within 24 hours after discharge. Patient is to continue taking home medications as prescribed. Patient was given refills for her home medications. If symptoms worse, return to ED.
--- NOTE | 2016-09-25 18:48 | PCM.HF ---
Heart Failure Core Measure - Heart Failure Ejection Fraction: 40 % or Greater (ef 73%) ZAID Inhibitor Prescribed: No Contraindication/Reason for not providing: esrd Beta-Isra Prescribed: Metoprolol Succinate Angiotensin II Receptor Isar Prescribed: No Contraindication/Reason for not providing: esrd AnticoagulationTherapy for Atrial Fibrillation/Atrialflutter: Yes Aldosterone Antagonist Prescribed: No Contraindication/Reason for not providing: esrd Hydralazine Nitrate Prescribed: No Contraindication/Reason for not providing: esrd Implantable Cardioverter Defibrillator Therapy: No Contraindication/Reason for not providing: ef >40% Cardiac Resynchronization Therapy Prescribed: No Contraindication/Reason for not providing: ef >40% - Follow up Will be discharged to: Home Follow Up Date (must be within 7 days from discharge): 09/27/16 Follow Up Time: 09:00
== END 2016-09-25 20:23 | disposition home or self-care (01) | DRG 291 ==
LOC: C.ER 13:20 → C.9E 15:02 → C.6T 17:50
PROVIDERS: ADMIT Internal Medicine Nephrology; ATTEND Internal Medicine Nephrology
PROC: 5A1D00Z (ICD-10-PCS; principal; 2016-09-23)
DX: I13.2 Hypertensive heart and chronic kidney disease with heart failure and with stage 5 chronic kidney disease, or end stage renal disease (principal); N18.6 End stage renal disease; I48.91 Unspecified atrial fibrillation; J44.9 Chronic obstructive pulmonary disease, unspecified; M34.9 Systemic sclerosis, unspecified; I50.9 Heart failure, unspecified; R74.8 Abnormal levels of other serum enzymes; I25.10 Atherosclerotic heart disease of native coronary artery without angina pectoris; E78.5 Hyperlipidemia, unspecified; M81.0 Age-related osteoporosis without current pathological fracture; Z87.891 Personal history of nicotine dependence; Z95.0 Presence of cardiac pacemaker

== ENCOUNTER 2016-09-26 08:48 | Inpatient (IN) | payer MEDICARE, OTHER ==
[2016-09-26 08:49] VITALS: PULSE 146; BMI 25.0
[2016-09-26] MEDS ORDERED: Oxycodone/Acetaminophen 5/325 mg Tab PO STA (09:18)
[2016-09-26] MEDS ORDERED: Oxycodone/Acetaminophen 5/325 mg Tab ONE (09:51)
[2016-09-26 10:30] LABS: BASO % 0.9 % (0.0-2.0); EOS # 0.1 K/uL (0.0-0.7); EOS % 1.2 % (0.0-4.0); HEMOGLOBIN 8.8 g/dL (11.0-16.0); LYMPH # 0.6 K/uL (1.0-4.3); LYMPH % 10.5 % (20.0-40.0); MEAN CELL VOLUME 109.1 fL (81.0-99.0); MEAN CORPUSCULAR HEMOGLOBIN 33.4 pg (27.0-31.0); MEAN CORPUSCULAR HGB CONC 30.6 g/dL (33.0-37.0); MEAN PLATELET VOLUME 8.6 fL (7.2-11.7); MONO # 0.6 K/uL (0.0-0.8); MONO % 10.6 % (0.0-10.0); NEUT # 4.1 K/uL (1.8-7.0); NEUT % 76.8 % (50.0-75.0); NRBC % 0.1 % (0.0-2.0); RBC 2.62 Mil/uL (3.80-5.20)
[2016-09-26 10:33] LABS: WHITE BLOOD COUNT 5.3 K/uL (4.8-10.8)
[2016-09-26 10:51] LABS: ALB/GLOB RATIO 0.8 (1.0-2.1); ALT/SGPT 15 U/L (9-52); AST/SGOT 22 U/L (14-36); BLOOD UREA NITROGEN 63 mg/dL (7-17); GFR AFRICAN-AMERICAN 10; GFR NON-AFRICAN AMERICAN 8
[2016-09-26 10:52] LABS: CALCIUM 8.2 mg/dl (8.6-10.4)
[2016-09-26 11:01] LABS: CK-MB 1.43 ng/mL (0.0-3.38)
[2016-09-26 11:03] LABS: B-TYPE NATRIURETIC PEPTIDE 26100 pg/mL (0-900)
--- NOTE | 2016-09-26 11:33 | C.PDOC ---
History Of Present Illness 66-year-old female presents to the emergency department with complaints of body aches, mild shortness of breath and chills. Patient was discharged yesterday from [facility], and is due for dialysis today 09:00. She states she was unable to tolerate the pain, resulting in her coming to the ED for evaluation. Patient admits to being given a prescription for pain meds yest, but did not fill because "it was night time." She denies chest pain, palpiations, cough, fever, abdominal pain, vomiting/diarrhea. Time Seen by Provider: 09/26/16 08:50 Chief Complaint (Nursing): Chest Pain History Per: Patient History/Exam Limitations: no limitations Current Symptoms Are (Timing): Still Present Severity: Moderate Quality: "Pain" Past Medical History Reviewed: Historical Data, Nursing Documentation, Vital Signs Vital Signs: Last Vital Signs Temp 97.6 F 09/29/16 15:10 Pulse 60 09/29/16 15:10 Resp 20 09/29/16 15:10 BP 95/58 L 09/29/16 15:10 Pulse Ox 99 09/29/16 15:10 - Medical History PMH: Anemia, Arthritis, Atrial Fibrillation, CAD, Cardia Arrhythmia, COPD, Depression, HTN, Hyperlipidemia, Migraine, Osteoporosis, Pancreatitis, Peripheral Edema, End Stage Renal Disease, Chronic Kidney Disease Comment Only: CHF (A-fib, CAD) Surgical History: Cholecystectomy, Endoscopy, Pacemaker - [facility] Procedures ANGIOPLASTY OF OTHER NON-CORONARY VESSEL(S) (12/04/13) DIALYSIS ARTERIOVENOSTOM (12/04/13) DRAINAGE OF LEFT PLEURAL CAVITY, PERCUTANEOUS APPROACH (09/01/16) FLEXIBLE SIGMOIDOSCOPY (07/30/14) FLUOROSCOPY OF LEFT HEART USING LOW OSMOLAR CONTRAST (02/01/16) FLUOROSCOPY OF MULT COR ART USING L OSM CONTRAST (02/01/16) HEMODIALYSIS (09/30/14) INSEJ [id number] PERIPHERAL NON-CORONARY VES STENT(S) (12/04/13) INSERTION OF ONE VASCULAR STENT (12/04/13) MEASURE OF CARDIAC SAMPL & PRESSURE, L HEART, PERC APPROACH (02/01/16) OTHER ENDOSCOPY OF SM INTEST (07/30/14) PACKED CELL TRANSFUSION (09/30/14) PERFORMANCE OF URINARY FILTRATION, MULTIPLE (09/01/16) PERFORMANCE OF URINARY FILTRATION, SINGLE (09/28/16) PROCEDURE ON SINGLE VESSEL (12/04/13) RESPIRATORY VENTILATION, GREATER THAN 96 CONSECUTIVE HOURS (09/01/16) TRANSFUSE NONAUT PLATELETS IN PERIPH VEIN, PERC (09/01/16) VASC PROC REVISION NEC (12/04/13) VENOUS CATHETERIZATION FOR RENAL DIALYSIS (12/04/13) Family History: States: No Known Family Hx - Social History Hx Tobacco Use: No Hx Alcohol Use: No Hx Substance Use: No - Immunization History Hx Tetanus Toxoid Vaccination: Yes Hx Influenza Vaccination: Yes Hx Pneumococcal Vaccination: Yes Review Of Systems Except As Marked, All Systems Reviewed And Found Negative. Constitutional: Positive for: Chills, Malaise Cardiovascular: Negative for: Chest Pain, Palpitations Respiratory: Positive for: Shortness of Breath. Negative for: Cough Gastrointestinal: Negative for: Nausea, Vomiting, Abdominal Pain, Diarrhea Musculoskeletal: Negative for: Back Pain Skin: Negative for: Rash Neurological: Negative for: Weakness, Numbness, Headache, Dizziness Physical Exam - Physical Exam Appears: Non-toxic, Chronically Ill, Other (Mild to moderate pain) Skin: Warm, Dry, No Rash, Other (Chronic changes, and tense) Head: Normacephalic Eye(s): bilateral: Normal Inspection Oral Mucosa: Moist Neck: Normal, Normal ROM Cardiovascular: Rhythm Regular, No Murmur Respiratory: No Accessory Muscle Use, Rales (B/L Bases), No Rhonchi, No Wheezing Gastrointestinal/Abdominal: Normal Exam, Bowel Sounds, Soft, No Tenderness, No Guarding, No Rebound Extremity: Normal ROM, Other (Right arm: AV fistula with palpable thrill) Extremity: Bilateral: Atraumatic Neurological/Psych: Oriented x3 ED Course And Treatment - Laboratory Results Result Diagrams: 09/29/16 08:34 09/29/16 08:34 ECG: Interpreted By Me, Viewed By Me (sinus rhythm 69 bpm, first degree AV block , normal axis, RBBB, no acute ST changes) ECG Interpretation: Abnormal O2 Sat by Pulse Oximetry: 99 (on RA) Pulse Ox Interpretation: Normal - Radiology CXR: Interpreted by Me, Viewed By Me (B/L pleural effusions, cardiomegaly) Progress Note: EKG, Bloodwork and CXR ordered and reviewed. Patient treated with PO Percocet. Patient's dialysis center contacted and will take her today. However patient's BP continued to be low throughout ED stay, unable to give fluids due to fluid overload & mild dypsnea/rales. Will made telemetry observation. 1:20PM- Dr. Fair also on blue list, patient admitted under Dr. Tay's service. - Physician Consult Information Physician Contacted: Porsha Newell Outcome Of Conversation: Discussed patient with Dr. Moody Newell, agrees with obs tele for fluid overload, esrd on HD, labile BP - Dr. Eng for nephrology. Dr. Moody Newell on blue list, spoke with Dr. Fair who will be admitting his patient' s for now. Disposition - Disposition Disposition: HOSPITALIZED Disposition Time: 11:12 Condition: FAIR - Clinical Impression Clinical Impression: Chronic pain, Fluid overload, Labile blood pressure, ESRD on hemodialysis, ESRD needing dialysis - PA / ON LINE CSR / Resident Statement MD/DO has reviewed & agrees with the documentation as recorded. - Scribe Statement The provider has reviewed the documentation as recorded by the Scribe (Justen Sykes) All medical record entries made by the Scribe were at my direction and personally dictated by me. I have reviewed the chart and agree that the record accurately reflects my personal performance of the history, physical exam, medical decision making, and the department course for this patient. I have also personally directed, reviewed, and agree with the discharge instructions and disposition. Decision To Admit - Pt Status Changed To: Hospital Disposition Of: Observation - . Bed Request Type: Telemetry Admitting Physician: Luma Tay Patient Diagnosis: Fluid overload, ESRD on hemodialysis, Labile blood pressure, ESRD needing dialysis, Chronic pain
--- NOTE | 2016-09-26 12:43 | RAD ---
PROCEDURE: CHEST RADIOGRAPH, 1 VIEW HISTORY: Shortness of breath COMPARISON: 09/23/2016 FINDINGS: LUNGS: Large left and moderate right pleural effusion. Confluent airspace consolidative changes throughout the left lung and within the right mid to lower lung zone. PLEURA: As above. CARDIOVASCULAR: Cardiomegaly. Calcification at the aortic knob. Left-sided pacemaker. OSSEOUS STRUCTURES: Degenerative changes in the spine and shoulders. VISUALIZED UPPER ABDOMEN: Normal. OTHER FINDINGS: None. IMPRESSION: Large left and moderate right pleural effusion. Confluent airspace consolidative changes throughout the left lung and within the right mid to lower lung zone. Cardiomegaly. Calcification at the aortic knob. Left-sided pacemaker.
[2016-09-26] MEDS ORDERED: Epoetin Alfa 10,000 unit/ml Dialysis IV SCH (18:17)
[2016-09-26] MEDS: Oxycodone/Acetaminophen 5/325 mg Tab PO PRN (21:36)
[2016-09-27] MEDS: Oxycodone/Acetaminophen 5/325 mg Tab PO PRN ×3 (01:42→22:14)
[2016-09-27 07:33] LABS: ALBUMIN 3.9 g/dL (3.5-5.0)
[2016-09-27 07:36] LABS: ALB/GLOB RATIO 0.9 (1.0-2.1)
[2016-09-27 07:37] LABS: CALCIUM 8.5 mg/dl (8.6-10.4)
[2016-09-27 08:00] LABS: BASO % 0.8 % (0.0-2.0); EOS % 1.4 % (0.0-4.0); HEMOGLOBIN 8.1 g/dL (11.0-16.0); LYMPH # 0.4 K/uL (1.0-4.3); LYMPH % 14.3 % (20.0-40.0); MEAN CELL VOLUME 109.5 fL (81.0-99.0); MEAN CORPUSCULAR HEMOGLOBIN 33.1 pg (27.0-31.0); MEAN CORPUSCULAR HGB CONC 30.3 g/dL (33.0-37.0); MEAN PLATELET VOLUME 10.5 fL (7.2-11.7); MONO # 0.3 K/uL (0.0-0.8); MONO % 10.9 % (0.0-10.0); NEUT # 2.2 K/uL (1.8-7.0); NEUT % 72.6 % (50.0-75.0); RBC 2.44 Mil/uL (3.80-5.20); RED CELL DISTRIBUTION WIDTH 18.6 % (11.5-14.5)
--- NOTE | 2016-09-27 12:13 | CP.PCM.CON ---
History of Present Illness - History of Present Illness History of Present Illness: 66 y/o HF admitted with chest pains. Admitted multiple times for CHF. On dialysis for many years - Medical History PMH: Anemia, Arthritis, Atrial Fibrillation, CAD, Cardia Arrhythmia, COPD, Depression, HTN, Hyperlipidemia, Migraine, Osteoporosis, Pancreatitis, Peripheral Edema, End Stage Renal Disease, Chronic Kidney Disease Denies: Hypercholesterolemia, Rheumatoid Arthritis, Sexually Transmitted Disease Comment Only: CHF (A-fib, CAD) PMH: ESRD FAILED RENAL TRANSPLANTS X 2 CARDIOMYOPATHY PAROXYSMAL AFIB FIBROSING SYSTEMIS DERMOPATHY COPD SEVERE DDD PSH: AV GRAFTS AND AV FISTULAS RENAL TRANSPLANTS X 2 Review of Systems - Review of Systems Systems not reviewed;Unavailable: Altered Mental Status Past Patient History - Infectious Disease Hx of Infectious Diseases: None - Tetanus Immunizations Tetanus Immunization: Unknown - Past Medical History & Family History Past Medical History?: Yes Past Family History: Reviewed and not pertinent - Past Social History Smoking Status: Never Smoked Chewing Tobacco Use: No Cigar Use: No Alcohol: None Drugs: Denies - CARDIAC Hx Cardiac Disorders: Yes Hx Atrial Fibrillation: Yes Hx Cardia Arrhythmia: Yes Hx Congestive Heart Failure: (A-fib, CAD) Hx Hypercholesterolemia: No Hx Hypertension: Yes Hx Pacemaker: Yes Hx Peripheral Edema: Yes - PULMONARY Hx Respiratory Disorders: Yes Hx Chronic Obstructive Pulmonary Disease (COPD): Yes - NEUROLOGICAL Hx Neurological Disorder: Yes Hx Migraine: Yes - HEENT Hx HEENT Problems: Yes Hx Glaucoma: Yes (rt eye) - RENAL Date of Last Dialysis Treatment: 09/26/16 - ENDOCRINE/METABOLIC Hx Endocrine Disorders: No - HEMATOLOGICAL/ONCOLOGICAL Hx Blood Disorders: Yes Hx Anemia: Yes - INTEGUMENTARY Hx Dermatological Problems: Yes (nephrogenic sclerosis,Scleroderma) Other/Comment: SCLERODERMA of Arms and legs - MUSCULOSKELETAL/RHEUMATOLOGICAL Hx Musculoskeletal Disorders: Yes Hx Arthritis: Yes Hx Falls: Yes Hx Osteoporosis: Yes Hx Rheumatoid Arthritis: No - GASTROINTESTINAL Hx Gastrointestinal Disorders: Yes Hx Pancreatitis: Yes - GENITOURINARY/GYNECOLOGICAL Hx Genitourinary Disorders: Yes Other/Comment: Enuric as per pt - PSYCHIATRIC Hx Psychophysiologic Disorder: Yes Hx Depression: Yes Hx Substance Use: No - SURGICAL HISTORY Hx Surgeries: Yes Hx Cholecystectomy: Yes Hx Vascular Surgery: Yes (Right AV Fistula) - ANESTHESIA Hx Anesthesia: Yes Hx Anesthesia Reactions: No Hx Malignant Hyperthermia: No Meds Allergies/Adverse Reactions: Allergies Allergy/AdvReac Type Severity Reaction Status Date / Time vancomycin Allergy Severe ITCHING Verified 09/26/16 09:03 budesonide [From Symbicort] Allergy ITCHING Verified 09/26/16 09:03 formoterol [From Symbicort] Allergy ITCHING Verified 09/26/16 09:03 gabapentin Allergy RASH Verified 09/26/16 15:56 - Medications Medications: Current Medications Amlodipine Besylate (Norvasc) 5 mg PO DAILY [facility] Aspirin (Ecotrin) 81 mg PO DAILY [facility] Last Admin: 09/27/16 10:30 Dose: Not Given Calcium Acetate (Phoslo) 1,334 mg PO TID [facility] Clopidogrel Bisulfate (Plavix) 75 mg PO DAILY [facility] Epoetin Phil (Procrit) 10,000 unit IV TTS [facility] Last Admin: 09/26/16 18:50 Dose: 10,000 unit Famotidine (Pepcid) 20 mg PO DAILY [facility] Isosorbide Dinitrate (Isordil) 20 mg PO DAILY [facility] Metoprolol Tartrate (Lopressor) 25 mg PO BID [facility] Oxycodone/Acetaminophen (Percocet 5/325 Mg Tab) 1 tab PO Q4H PRN PRN Reason: Pain Stop: 09/29/16 21:26 Last Admin: 09/27/16 01:42 Dose: 1 tab Prochlorperazine (Compazine) 10 mg PO BID PRN PRN Reason: Nausea/Vomiting Sevelamer Carbonate (Renvela) 2,400 mg PO TID [facility] Sucralfate (Carafate Tab) 1 gm PO TID [facility] Last Admin: 09/27/16 10:30 Dose: Not Given Physical Exam - Constitutional Appears: Confused, Chronically Ill - Head Exam Head Exam: ATRAUMATIC, NORMAL INSPECTION - Eye Exam Eye Exam: EOMI, Normal appearance - Neck Exam Neck exam: Positive for: Normal Inspection. Negative for: Tenderness - Respiratory Exam Respiratory Exam: Decreased Breath Sounds, NORMAL BREATHING PATTERN - Cardiovascular Exam Cardiovascular Exam: Irregular Rhythm, +S1 - GI/Abdominal Exam GI & Abdominal Exam: Soft. absent: Tenderness - Extremities Exam Extremities exam: Positive for: calf tenderness, tenderness - Neurological Exam Neurological exam: Altered, Motor Sensory Deficit - Skin Skin Exam: Dry, Mottled, Warm Results - Vital Signs Recent Vital Signs: Last Vital Signs Temp 97.9 F 09/27/16 08:36 Pulse 75 09/27/16 08:36 Resp 20 09/27/16 08:36 BP 101/63 09/27/16 08:36 Pulse Ox 97 09/27/16 08:36 - Labs Result Diagrams: 09/27/16 07:04 09/27/16 07:04 Labs: Laboratory Results - last 24 hr 09/27/16 09/27/16 09/27/16 06:16 07:04 07:04 WBC 3.0 L RBC 2.44 L Hgb 8.1 L Hct 26.7 L MCV 109.5 H MCH 33.1 H MCHC 30.3 L RDW 18.6 H Plt Count 43 L D MPV 10.5 Neut % (Auto) 72.6 Lymph % (Auto) 14.3 L Eaton % (Auto) 10.9 H Eos % (Auto) 1.4 Baso % (Auto) 0.8 Neut # 2.2 Lymph # 0.4 L Eaton # 0.3 Eos # 0.0 Baso # 0.0 Differential Comment Sodium 139 Potassium 4.7 Chloride 95 L Carbon Dioxide 31 H Anion Gap 18 BUN 35 H Creatinine 3.5 H Est GFR ( Amer) 16 Est GFR (Non-Af Amer) 13 POC Glucose (mg/dL) 86 Random Glucose 89 Calcium 8.5 L Total Bilirubin 0.8 AST 23 ALT 18 Alkaline Phosphatase 150 H D Total Protein 8.3 Albumin 3.9 Globulin 4.4 H Albumin/Globulin Ratio 0.9 L Assessment & Plan (1) CHF (congestive heart failure) Status: Acute (2) COPD (chronic obstructive pulmonary disease) Status: Acute (3) Degenerative disc disease, lumbar Status: Acute Priority: Medium (4) ESRD (end stage renal disease) Status: Acute (5) Paroxysmal atrial fibrillation Status: Acute (6) HTN (hypertension) Status: Chronic (7) Nephrogenic fibrosing dermopathy Status: Chronic - Assessment and Plan (Free Text) Plan: DIALYSIS MWF WITH [facility] ADD ESAs
[2016-09-28] MEDS ORDERED: Epoetin Alfa 10,000 unit/ml Dialysis IV SCH (10:00)
--- NOTE | 2016-09-28 10:21 | CP.PCM.PN ---
Subjective - Date & Time of Evaluation Date of Evaluation: 09/28/16 Time of Evaluation: 10:19 - Subjective Subjective: more lethargic- sleepy now Due for dialysis today Labs reviewed- acceptable Unable to obtain ROS Objective - Vital Signs/Intake and Output Vital Signs (last 24 hours): Temp Pulse Resp BP Pulse Ox 97.9 F 80 20 102/64 97 09/28/16 08:26 09/28/16 08:26 09/28/16 08:26 09/28/16 08:26 09/28/16 08:26 - Medications Medications: Current Medications Amlodipine Besylate (Norvasc) 5 mg PO DAILY [facility] Last Admin: 09/27/16 10:30 Dose: Not Given Aspirin (Ecotrin) 81 mg PO DAILY [facility]S [facility] Last Admin: 09/27/16 10:30 Dose: Not Given Calcium Acetate (Phoslo) 1,334 mg PO TID [facility] 234 B[facility]S AT [facility] Last Admin: 09/27/16 17:07 Dose: 1,334 mg Clopidogrel Bisulfate (Plavix) 75 mg PO DAILY [facility] 234 B[facility]S AT [facility] Last Admin: 09/27/16 10:30 Dose: Not Given Epoetin Phil (Procrit) 10,000 unit IV TTS [facility] 234 BEDS AT [facility] Famotidine (Pepcid) 20 mg PO DAILY [facility] 234 B[facility]S AT [facility] Last Admin: 09/27/16 10:30 Dose: Not Given Isosorbide Dinitrate (Isordil) 20 mg PO DAILY [facility] 234 B[facility]S AT [facility] Last Admin: 09/27/16 10:40 Dose: Not Given Metoprolol Tartrate (Lopressor) 25 mg PO BID [facility] 234 B[facility]S AT [facility] Last Admin: 09/27/16 17:08 Dose: Not Given Oxycodone/Acetaminophen (Percocet 5/325 Mg Tab) 1 tab PO Q4H PRN PRN Reason: Pain Stop: 09/29/16 21:26 Last Admin: 09/27/16 22:14 Dose: 1 tab Prochlorperazine (Compazine) 10 mg PO BID PRN PRN Reason: Nausea/Vomiting Sevelamer Carbonate (Renvela) 2,400 mg PO TID [facility] B[facility]S [facility] Last Admin: 09/27/16 17:07 Dose: 2,400 mg Sucralfate (Carafate Tab) 1 gm PO TID [facility] 234 BEDS AT [facility] Last Admin: 09/27/16 17:08 Dose: 1 gm - Labs Labs: 09/27/16 07:04 09/27/16 07:04 - Constitutional Appears: No Acute Distress, Chronically Ill - Head Exam Head Exam: ATRAUMATIC, NORMAL INSPECTION - Eye Exam Eye Exam: EOMI, Scleral icterus - Neck Exam Neck Exam: Normal Inspection. absent: Tenderness - Respiratory Exam Respiratory Exam: Clear to Ausculation Bilateral, NORMAL BREATHING PATTERN - Cardiovascular Exam Cardiovascular Exam: REGULAR RHYTHM, +S1 - GI/Abdominal Exam GI & Abdominal Exam: Soft. absent: Tenderness - Extremities Exam Extremities Exam: Pedal Edema, Tenderness - Neurological Exam Neurological Exam: Altered, Motor Sensory Deficit - Skin Skin Exam: Dry, Warm Assessment and Plan (1) CHF (congestive heart failure) Status: Acute (2) COPD (chronic obstructive pulmonary disease) Status: Acute (3) Degenerative disc disease, lumbar Status: Acute (4) ESRD (end stage renal disease) Status: Acute (5) Paroxysmal atrial fibrillation Status: Acute (6) HTN (hypertension) Status: Chronic (7) Nephrogenic fibrosing dermopathy Status: Chronic - Assessment and Plan (Free Text) Plan: Monitor mental status- ate ok earlier For dialysis today Same meds
--- NOTE | 2016-09-28 16:03 | CARD ---
APPROVED REPORT EKG Measurement Heart [id number] <Conclusion> Sinus rhythm with 1st degree AV block Right bundle branch block T wave abnormality, consider inferior ischemia Abnormal ECG
[2016-09-28] MEDS: Oxycodone/Acetaminophen 5/325 mg Tab PO PRN ×2 (17:17→22:43)
--- NOTE | 2016-09-28 22:48 | CP.PCM.HP ---
Past Patient History - Infectious Disease Hx of Infectious Diseases: None - Tetanus Immunizations Tetanus Immunization: Unknown - Past Medical History & Family History Past Medical History?: Yes Past Family History: Reviewed and not pertinent - Past Social History Smoking Status: Never Smoked Chewing Tobacco Use: No Cigar Use: No Alcohol: None Drugs: Denies - CARDIAC Hx Cardiac Disorders: Yes (A FIB; CAD) - PULMONARY Hx Chronic Obstructive Pulmonary Disease (COPD): Yes - NEUROLOGICAL Hx Neurological Disorder: Yes Hx Migraine: Yes - HEENT Hx HEENT Problems: Yes Hx Glaucoma: Yes (rt eye) - RENAL Date of Last Dialysis Treatment: 09/26/16 - ENDOCRINE/METABOLIC Hx Endocrine Disorders: No - HEMATOLOGICAL/ONCOLOGICAL Hx Blood Disorders: Yes Hx Anemia: Yes - INTEGUMENTARY Hx Dermatological Problems: Yes (nephrogenic sclerosis,Scleroderma) Other/Comment: SCLERODERMA of Arms and legs - MUSCULOSKELETAL/RHEUMATOLOGICAL Hx Arthritis: Yes - GASTROINTESTINAL Hx Gastrointestinal Disorders: Yes Hx Pancreatitis: Yes - GENITOURINARY/GYNECOLOGICAL Hx Genitourinary Disorders: Yes Other/Comment: Enuric as per pt - PSYCHIATRIC Hx Psychophysiologic Disorder: Yes Hx Depression: Yes Hx Substance Use: No - SURGICAL HISTORY Hx Surgeries: Yes Hx Cholecystectomy: Yes Hx Vascular Surgery: Yes (Right AV Fistula) - ANESTHESIA Hx Anesthesia: Yes Hx Anesthesia Reactions: No Hx Malignant Hyperthermia: No Meds Allergies/Adverse Reactions: Allergies Allergy/AdvReac Type Severity Reaction Status Date / Time vancomycin Allergy Severe ITCHING Verified 09/26/16 09:03 budesonide [From Symbicort] Allergy ITCHING Verified 09/26/16 09:03 formoterol [From Symbicort] Allergy ITCHING Verified 09/26/16 09:03 gabapentin Allergy RASH Verified 09/26/16 15:56 Results - Vital Signs Recent Vital Signs: Last Vital Signs Temp 97.6 F 09/28/16 16:51 Pulse 74 09/28/16 16:51 Resp 18 09/28/16 16:51 BP 102/75 09/28/16 17:20 Pulse Ox 97 09/28/16 16:51 - Labs Result Diagrams: 09/27/16 07:04 09/27/16 07:04 Labs: Laboratory Results - last 24 hr 09/28/16 13:49 % Saturation 24
--- NOTE | 2016-09-28 22:48 | CP.PCM.PN ---
Subjective - Date & Time of Evaluation Date of Evaluation: 09/28/16 Time of Evaluation: 22:48 Objective - Vital Signs/Intake and Output Vital Signs (last 24 hours): Temp Pulse Resp BP Pulse Ox 97.6 F 74 18 102/75 97 09/28/16 16:51 09/28/16 16:51 09/28/16 16:51 09/28/16 17:20 09/28/16 16:51 - Medications Medications: Current Medications Amlodipine Besylate (Norvasc) 5 mg PO DAILY [facility] Last Admin: 09/28/16 11:26 Dose: Not Given Aspirin (Ecotrin) 81 mg PO DAILY [facility] Last Admin: 09/28/16 11:24 Dose: Not Given Calcium Acetate (Phoslo) 1,334 mg PO TID [facility] Last Admin: 09/28/16 17:16 Dose: 1,334 mg Clopidogrel Bisulfate (Plavix) 75 mg PO DAILY [facility] Last Admin: 09/28/16 11:26 Dose: Not Given Epoetin Phil (Procrit) 10,000 unit IV TTS [facility] Last Admin: 09/28/16 14:56 Dose: 10,000 unit Famotidine (Pepcid) 20 mg PO DAILY [facility] Last Admin: 09/28/16 11:29 Dose: Not Given Isosorbide Dinitrate (Isordil) 20 mg PO DAILY [facility] Last Admin: 09/28/16 11:25 Dose: Not Given Metoprolol Tartrate (Lopressor) 25 mg PO BID [facility] Last Admin: 09/28/16 17:20 Dose: Not Given Oxycodone/Acetaminophen (Percocet 5/325 Mg Tab) 1 tab PO Q4H PRN PRN Reason: Pain Stop: 09/29/16 21:26 Last Admin: 09/28/16 22:43 Dose: 1 tab Prochlorperazine (Compazine) 10 mg PO BID PRN PRN Reason: Nausea/Vomiting Sevelamer Carbonate (Renvela) 2,400 mg PO TID [facility] Last Admin: 09/28/16 17:16 Dose: 2,400 mg Sucralfate (Carafate Tab) 1 gm PO TID [facility] Last Admin: 09/28/16 17:16 Dose: 1 gm
[2016-09-29 01:33] VITALS: RESP 20
[2016-09-29 08:44] LABS: HEMOGLOBIN 8.2 g/dL (11.0-16.0); MEAN CELL VOLUME 107.9 fL (81.0-99.0); MEAN CORPUSCULAR HEMOGLOBIN 33.8 pg (27.0-31.0); MEAN CORPUSCULAR HGB CONC 31.4 g/dL (33.0-37.0); RBC 2.44 Mil/uL (3.80-5.20); RED CELL DISTRIBUTION WIDTH 17.8 % (11.5-14.5); WHITE BLOOD COUNT 3.5 K/uL (4.8-10.8)
[2016-09-29 08:57] LABS: INR 1.1; PROTHROMBIN TIME 12.4 SECONDS (9.7-12.2)
[2016-09-29 09:14] LABS: CALCIUM 8.7 mg/dl (8.6-10.4)
--- NOTE | 2016-09-29 12:16 | CP.PCM.PN ---
Subjective - Date & Time of Evaluation Date of Evaluation: 09/29/16 Time of Evaluation: 11:05 - Subjective Subjective: ATTENDING MD SERVICE TRANSFERRED FORM DR. PACHECO TO DR. Moody WILLS WHO IS THE PMD. PER DR. MIMS HE WAS COVERING FOR DR. Moody WILLS 04/20 BLUE LIST. 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 WILLS WITH PTS. THEY WILL CONTINUE MANAGEMENT. NO FURTHER ORDERS. Objective - Vital Signs/Intake and Output Vital Signs (last 24 hours): Temp Pulse Resp BP Pulse Ox 97.5 F L 65 20 110/68 100 09/29/16 08:28 09/29/16 08:28 09/29/16 08:28 09/29/16 10:44 09/29/16 08:28 - Medications Medications: Current Medications Amlodipine Besylate (Norvasc) 5 mg PO DAILY [facility] Last Admin: 09/29/16 10:44 Dose: 5 mg Aspirin (Ecotrin) 81 mg PO DAILY [facility] Last Admin: 09/29/16 10:44 Dose: 81 mg Calcium Acetate (Phoslo) 1,334 mg PO TID [facility] Last Admin: 09/29/16 10:43 Dose: 1,334 mg Clopidogrel Bisulfate (Plavix) 75 mg PO DAILY [facility] Last Admin: 09/29/16 10:44 Dose: 75 mg Epoetin Phil (Procrit) 10,000 unit IV TTS [facility] Last Admin: 09/28/16 14:56 Dose: 10,000 unit Famotidine (Pepcid) 20 mg PO DAILY [facility] Last Admin: 09/29/16 10:44 Dose: 20 mg Isosorbide Dinitrate (Isordil) 20 mg PO DAILY [facility] Last Admin: 09/29/16 10:44 Dose: 20 mg Metoprolol Tartrate (Lopressor) 25 mg PO BID [facility] Last Admin: 09/29/16 10:44 Dose: 25 mg Oxycodone/Acetaminophen (Percocet 5/325 Mg Tab) 1 tab PO Q4H PRN PRN Reason: Pain Stop: 09/29/16 21:26 Last Admin: 09/28/16 22:43 Dose: 1 tab Prochlorperazine (Compazine) 10 mg PO BID PRN PRN Reason: Nausea/Vomiting Sevelamer Carbonate (Renvela) 2,400 mg PO TID [facility] Last Admin: 09/29/16 10:43 Dose: 2,400 mg Sucralfate (Carafate Tab) 1 gm PO TID [facility] Last Admin: 09/29/16 10:44 Dose: 1 gm - Labs Labs: 09/29/16 08:34 09/29/16 08:34 PT 12.4 SECONDS (9.7-12.2) H 09/29/16 08:34 INR 1.1 09/29/16 08:34 APTT 38 SECONDS (21-34) H 09/29/16 08:34
[2016-09-29 13:51] VITALS: PULSE 60
--- NOTE | 2016-09-29 14:40 | CP.PCM.PN ---
Subjective - Date & Time of Evaluation Date of Evaluation: 09/29/16 Time of Evaluation: 14:37 - Subjective Subjective: stable dialysis 09/28 only c/o severe pains BP low but stable Objective - Vital Signs/Intake and Output Vital Signs (last 24 hours): Temp Pulse Resp BP Pulse Ox 97.5 F L 60 20 89/45 L 100 09/29/16 08:28 09/29/16 13:50 09/29/16 08:28 09/29/16 13:50 09/29/16 08:28 - Medications Medications: Current Medications Amlodipine Besylate (Norvasc) 5 mg PO DAILY [facility] Last Admin: 09/29/16 10:44 Dose: 5 mg Aspirin (Ecotrin) 81 mg PO DAILY [facility] Last Admin: 09/29/16 10:44 Dose: 81 mg Calcium Acetate (Phoslo) 1,334 mg PO TID [facility] Last Admin: 09/29/16 13:18 Dose: Not Given Clopidogrel Bisulfate (Plavix) 75 mg PO DAILY [facility] Last Admin: 09/29/16 10:44 Dose: 75 mg Epoetin Phil (Procrit) 10,000 unit IV TTS [facility] Last Admin: 09/28/16 14:56 Dose: 10,000 unit Famotidine (Pepcid) 20 mg PO DAILY [facility] Last Admin: 09/29/16 10:44 Dose: 20 mg Isosorbide Dinitrate (Isordil) 20 mg PO DAILY [facility] Last Admin: 09/29/16 10:44 Dose: 20 mg Metoprolol Tartrate (Lopressor) 25 mg PO BID [facility] Last Admin: 09/29/16 10:44 Dose: 25 mg Oxycodone/Acetaminophen (Percocet 5/325 Mg Tab) 1 tab PO Q4H PRN PRN Reason: Pain Stop: 09/29/16 21:26 Last Admin: 09/28/16 22:43 Dose: 1 tab Prochlorperazine (Compazine) 10 mg PO BID PRN PRN Reason: Nausea/Vomiting Sevelamer Carbonate (Renvela) 2,400 mg PO TID [facility] Last Admin: 09/29/16 13:18 Dose: Not Given Sucralfate (Carafate Tab) 1 gm PO TID [facility] Last Admin: 09/29/16 13:16 Dose: Not Given - Labs Labs: 09/29/16 08:34 09/29/16 08:34 PT 12.4 SECONDS (9.7-12.2) H 09/29/16 08:34 INR 1.1 09/29/16 08:34 APTT 38 SECONDS (21-34) H 09/29/16 08:34 - Constitutional Appears: No Acute Distress, Chronically Ill - Head Exam Head Exam: ATRAUMATIC, NORMAL INSPECTION - Eye Exam Eye Exam: EOMI, Normal appearance - Neck Exam Neck Exam: Normal Inspection. absent: Tenderness - Respiratory Exam Respiratory Exam: Clear to Ausculation Bilateral, NORMAL BREATHING PATTERN - Cardiovascular Exam Cardiovascular Exam: REGULAR RHYTHM, +S1 - GI/Abdominal Exam GI & Abdominal Exam: Soft. absent: Tenderness - Extremities Exam Extremities Exam: Normal Inspection. absent: Tenderness - Neurological Exam Neurological Exam: Alert, CN II-XII Intact - Skin Skin Exam: Dry, Warm Assessment and Plan (1) CHF (congestive heart failure) Status: Acute (2) COPD (chronic obstructive pulmonary disease) Status: Acute (3) Degenerative disc disease, lumbar Status: Acute (4) ESRD (end stage renal disease) Status: Acute (5) Paroxysmal atrial fibrillation Status: Acute (6) HTN (hypertension) Status: Chronic (7) Nephrogenic fibrosing dermopathy Status: Chronic - Assessment and Plan (Free Text) Plan: Same dialysis TTS Pain management as per medicine Monitor low BP
[2016-09-29 15:58] VITALS: BP 95/58; TEMP 97.6; O2SAT 99
--- NOTE | 2016-09-29 17:50 | PCM.HF ---
Heart Failure Core Measure - Heart Failure Ejection Fraction: 40 % or Greater ZAID Inhibitor Prescribed: No Contraindication/Reason for not providing: esrd Beta-Isra Prescribed: Metoprolol Succinate Angiotensin II Receptor Isra Prescribed: No Contraindication/Reason for not providing: esrd AnticoagulationTherapy for Atrial Fibrillation/Atrialflutter: Yes Aldosterone Antagonist Prescribed: No Contraindication/Reason for not providing: esrd Hydralazine Nitrate Prescribed: No Contraindication/Reason for not providing: esrd Implantable Cardioverter Defibrillator Therapy: No Contraindication/Reason for not providing: ef >40% Cardiac Resynchronization Therapy Prescribed: No Contraindication/Reason for not providing: ef >40% - Follow up Will be discharged to: Home Follow Up Date (must be within 7 days from discharge): 10/03/16 Follow Up Time: 09:00
== END 2016-09-29 16:30 | disposition home or self-care (01) | DRG 291 ==
LOC: C.ER 08:48 → C.9E 11:12 → UNDOADMOB 11:12 → C.6T 15:47 → OBSVTOIN 09-28 12:38
PROVIDERS: ADMIT Internal Medicine Nephrology; ATTEND Internal Medicine Nephrology
PROC: 5A1D00Z (ICD-10-PCS; principal; 2016-09-28)
DX: I13.2 Hypertensive heart and chronic kidney disease with heart failure and with stage 5 chronic kidney disease, or end stage renal disease (principal); N18.6 End stage renal disease; M34.9 Systemic sclerosis, unspecified; I48.0 Paroxysmal atrial fibrillation; I42.9 Cardiomyopathy, unspecified; Z94.0 Kidney transplant status; J44.9 Chronic obstructive pulmonary disease, unspecified; E78.5 Hyperlipidemia, unspecified; H40.9 Unspecified glaucoma; I25.10 Atherosclerotic heart disease of native coronary artery without angina pectoris; I50.9 Heart failure, unspecified; M51.36 Other intervertebral disc degeneration, lumbar region; Z95.0 Presence of cardiac pacemaker; Z99.2 Dependence on renal dialysis; M81.0 Age-related osteoporosis without current pathological fracture

== ENCOUNTER 2016-10-30 14:53 | Observation (INO) | payer MEDICARE, OTHER ==
[2016-10-30 14:53] VITALS: PULSE 146; BMI 24.5
--- NOTE | 2016-10-30 15:30 | C.PDOC ---
History Of Present Illness 66 Y/O FEMALE SENT TO ER BY PMD DR. GERALDINE WILLS FOR DIALYSIS. PATIENT REPORTS SOB SINCE YESTERDAY. NOTES LAST DIALYSIS WAS LAST SUNDAY (2 DAYS AGO). DENIES ANY PAIN, FEVER, CHILLS, NAUSEA, VOMITING, DIARRHEA, OR OTHER ASSOCIATED SYMPTOMS. Time Seen by Provider: 10/30/16 15:27 Chief Complaint (Nursing): Shortness Of Breath History Per: Patient History/Exam Limitations: no limitations Onset/Duration Of Symptoms: Days Current Symptoms Are (Timing): Still Present Associated Symptoms: denies: Fever, Chills, Ankle/Leg Swelling, Dizziness Reports Recently: Treated By A Physician Recent travel outside of the [place]: No Past Medical History Reviewed: Historical Data, Nursing Documentation, Vital Signs Vital Signs: Last Vital Signs Temp 98.0 F 10/30/16 14:55 Pulse 74 10/30/16 14:55 Resp 17 10/30/16 15:35 BP 152/83 H 10/30/16 14:55 Pulse Ox 100 10/30/16 16:39 - Medical History PMH: Anemia, Arthritis, Asthma, Atrial Fibrillation, CAD, Cardia Arrhythmia, CHF (A-fib, CAD), COPD, Depression, HTN, Hyperlipidemia, Migraine, Osteoporosis , Pancreatitis, Peripheral Edema, End Stage Renal Disease, Chronic Kidney Disease Surgical History: Cholecystectomy, Endoscopy, Pacemaker - [facility] Procedures ANGIOPLASTY OF OTHER NON-CORONARY VESSEL(S) (12/04/13) DIALYSIS ARTERIOVENOSTOM (12/04/13) DRAINAGE OF LEFT PLEURAL CAVITY, PERCUTANEOUS APPROACH (09/01/16) FLEXIBLE SIGMOIDOSCOPY (07/30/14) FLUOROSCOPY OF LEFT HEART USING LOW OSMOLAR CONTRAST (02/01/16) FLUOROSCOPY OF MULT COR ART USING L OSM CONTRAST (02/01/16) HEMODIALYSIS (09/30/14) INSEJ [id number] PERIPHERAL NON-CORONARY VES STENT(S) (12/04/13) INSERTION OF ONE VASCULAR STENT (12/04/13) MEASURE OF CARDIAC SAMPL & PRESSURE, L HEART, PERC APPROACH (02/01/16) OTHER ENDOSCOPY OF SM INTEST (07/30/14) PACKED CELL TRANSFUSION (09/30/14) PERFORMANCE OF URINARY FILTRATION, MULTIPLE (10/16/16) PERFORMANCE OF URINARY FILTRATION, SINGLE (09/28/16) PROCEDURE ON SINGLE VESSEL (12/04/13) RESPIRATORY VENTILATION, GREATER THAN 96 CONSECUTIVE HOURS (09/01/16) TRANSFUSE NONAUT PLATELETS IN PERIPH VEIN, PERC (09/01/16) VASC PROC REVISION NEC (12/04/13) VENOUS CATHETERIZATION FOR RENAL DIALYSIS (12/04/13) Family History: States: Unknown Family Hx - Social History Hx Tobacco Use: No Hx Alcohol Use: No Hx Substance Use: No - Immunization History Hx Tetanus Toxoid Vaccination: Yes Hx Influenza Vaccination: Yes Hx Pneumococcal Vaccination: Yes Review Of Systems Except As Marked, All Systems Reviewed And Found Negative. Constitutional: Negative for: Fever, Chills Cardiovascular: Negative for: Chest Pain Respiratory: Positive for: Shortness of Breath. Negative for: Cough, Wheezing Gastrointestinal: Negative for: Nausea, Vomiting, Abdominal Pain Skin: Negative for: Rash Neurological: Negative for: Dizziness Physical Exam - Physical Exam Appears: Non-toxic, No Acute Distress Skin: Warm, Dry Head: Atraumatic, Normacephalic Oral Mucosa: Moist Chest: Symmetrical Cardiovascular: Rhythm Regular, No Edema, No Murmur Respiratory: No Rhonchi, No Wheezing, Other (POOR EFFORT, NO RESPIRATORY DISTRESS) Gastrointestinal/Abdominal: Soft, No Tenderness, No Distention, No Guarding, No Rebound Back: Normal Inspection Extremity: Normal ROM, No Pedal Edema, Capillary Refill (< 2 SEC.) Neurological/Psych: Oriented x3, Normal Speech, Normal Cognition ED Course And Treatment ECG: Interpreted By Ks ECG Rhythm: R BBB ECG Interpretation: No Acute Changes, No Changes From Prior Rate From EC O2 Sat by Pulse Oximetry: 100 (RA) Pulse Ox Interpretation: Normal - Radiology CXR: Interpreted by Ks CXR Interpretation: Yes: Other (CHF) Progress - Re-Evaluation Re-evaluation Note: 10/30/16 15:54 EKG, CXR, BLOODWORK ORDERED. 10/30/16 16:37 d/w pmd. WILL ADMIT. UNABLE TO DRAW BLOOD DUE TO POOR ACCESS. PMD AWARE. - Data Reviewed Data Reviewed: Diagnostic imaging, Old records Disposition Counseled Patient/Family Regarding: Studies Performed, Diagnosis - Disposition Disposition: HOSPITALIZED Disposition Time: 16:38 Condition: STABLE Forms: [facility] (Mauritanian) - POA Present On Arrival: None - Clinical Impression Clinical Impression: End stage renal failure on dialysis, Shortness of breath - Scribe Statement The provider has reviewed the documentation as recorded by the Scribe SM All medical record entries made by the Scribe were at my direction and personally dictated by me. I have reviewed the chart and agree that the record accurately reflects my personal performance of the history, physical exam, medical decision making, and the department course for this patient. I have also personally directed, reviewed, and agree with the discharge instructions and disposition. Decision To Admit - Pt Status Changed To: Hospital Disposition Of: Observation - . Bed Request Type: Regular Admitting Physician: Porsha Wills Patient Diagnosis: End stage renal failure on dialysis, Shortness of breath
--- NOTE | 2016-10-30 16:53 | RAD ---
PROCEDURE: CHEST RADIOGRAPH, 1 VIEW HISTORY: SOB COMPARISON: 10/16/2016 FINDINGS: LUNGS: The diffuse bilateral alveolar opacity, left greater than right. It is most prominent at the right base but is seen diffusely throughout the left lung. This may reflect bilateral pneumonia or pulmonary edema. PLEURA: Small bilateral pleural effusion. No pneumothorax. CARDIOVASCULAR: Normal heart size. Permanent pacemaker. OSSEOUS STRUCTURES: No significant abnormalities. VISUALIZED UPPER ABDOMEN: Normal. OTHER FINDINGS: None. IMPRESSION: Diffuse bilateral pulmonary opacity, left greater than right. Small bilateral pleural effusion. Findings are nonspecific.
[2016-10-30] MEDS ORDERED: Epoetin Alfa 10,000 unit/ml Dialysis IV ONE ×2 (19:16→22:45)
--- NOTE | 2016-10-30 20:28 | CP.PCM.HP ---
Past Patient History - Infectious Disease Hx of Infectious Diseases: None - Tetanus Immunizations Tetanus Immunization: Unknown - Past Medical History & Family History Past Medical History?: Yes - Past Social History Smoking Status: Former Smoker - CARDIAC Hx Atrial Fibrillation: Yes Hx Cardia Arrhythmia: Yes Hx Congestive Heart Failure: Yes (A-fib, CAD) Hx Hypertension: Yes Hx Pacemaker: Yes Hx Peripheral Edema: Yes - PULMONARY Hx Asthma: Yes Hx Chronic Obstructive Pulmonary Disease (COPD): Yes - NEUROLOGICAL Hx Migraine: Yes - HEENT Hx HEENT Problems: Yes Hx Glaucoma: Yes (rt eye) - RENAL Hx Chronic Kidney Disease: Yes - ENDOCRINE/METABOLIC Hx Endocrine Disorders: No - HEMATOLOGICAL/ONCOLOGICAL Hx Anemia: Yes - INTEGUMENTARY Hx Dermatological Problems: Yes - MUSCULOSKELETAL/RHEUMATOLOGICAL Hx Arthritis: Yes Hx Osteoporosis: Yes - GASTROINTESTINAL Hx Pancreatitis: Yes - GENITOURINARY/GYNECOLOGICAL Hx Sexually Transmitted Disorders: No - PSYCHIATRIC Hx Depression: Yes Hx Substance Use: No - SURGICAL HISTORY Hx Cholecystectomy: Yes - ANESTHESIA Hx Anesthesia: Yes Hx Anesthesia Reactions: No Hx Malignant Hyperthermia: No Meds Allergies/Adverse Reactions: Allergies Allergy/AdvReac Type Severity Reaction Status Date / Time vancomycin Allergy Severe ITCHING Verified 09/26/16 09:03 budesonide [From Symbicort] Allergy ITCHING Verified 09/26/16 09:03 formoterol [From Symbicort] Allergy ITCHING Verified 09/26/16 09:03 gabapentin Allergy RASH Verified 09/26/16 15:56 Results - Vital Signs Recent Vital Signs: Last Vital Signs Temp 98.0 F 10/30/16 14:55 Pulse 75 10/30/16 18:52 Resp 19 10/30/16 18:52 BP 135/76 10/30/16 18:52 Pulse Ox 99 10/30/16 18:52
[2016-10-30 21:57] LABS: BASO % 0.7 % (0.0-2.0); EOS # 0.1 K/uL (0.0-0.7); EOS % 2.6 % (0.0-4.0); HEMATOCRIT 31.4 % (34.0-47.0); LYMPH # 0.7 K/uL (1.0-4.3); LYMPH % 20.6 % (20.0-40.0); MEAN CELL VOLUME 106.2 fL (81.0-99.0); MEAN CORPUSCULAR HEMOGLOBIN 33.6 pg (27.0-31.0); MEAN CORPUSCULAR HGB CONC 31.7 g/dL (33.0-37.0); MEAN PLATELET VOLUME 7.8 fL (7.2-11.7); MONO # 0.4 K/uL (0.0-0.8); MONO % 11.9 % (0.0-10.0); RED CELL DISTRIBUTION WIDTH 17.7 % (11.5-14.5); WHITE BLOOD COUNT 3.2 K/uL (4.8-10.8)
[2016-10-30 22:05] LABS: INR 1.1; POTASSIUM 4.8 mmol/L (3.6-5.2)
[2016-10-30 22:09] LABS: CALCIUM 8.7 mg/dl (8.6-10.4)
[2016-10-30] MEDS: Albuterol-Ipratrop 3 mg / 0.5 (3 ml) UD INH SCH (22:43)
[2016-10-31] MEDS: Albuterol-Ipratrop 3 mg / 0.5 (3 ml) UD INH SCH ×4 (01:55→20:25)
--- NOTE | 2016-10-31 09:56 | CP.PCM.PN ---
Subjective - Date & Time of Evaluation Date of Evaluation: 10/31/16 Time of Evaluation: 07:30 - Subjective Subjective: PGY-[address] Newell Patient seen and examined at [address] [place] [address] dialysis room. No acute events reported overnight. Patient reports to have shortness of breath on exertion. Patient states she is not in any pain currently because the Fentanyl patch she applied at home. Patient denies headache, dizziness, fever, chills, chest pain, nausea, vomiting, abdominal pain, or diarrhea. Objective - Vital Signs/Intake and Output Vital Signs (last 24 hours): Temp Pulse Resp BP Pulse Ox 98.3 F 73 20 136/73 100 10/31/16 07:32 10/31/16 07:32 10/31/16 07:32 10/31/16 07:32 10/31/16 07:32 Intake and Output: 10/31/16 10/31/16 06:59 18:59 Intake Total 300 Balance 300 - Medications Medications: Current Medications Albuterol/Ipratropium (Duoneb 3 Mg/0.5 Mg (3 Ml) Ud) 3 ml INH RQ6 [facility] Last Admin: 10/31/16 08:27 Dose: 3 ml Amlodipine Besylate (Norvasc) 5 mg PO DAILY [facility] Aspirin (Ecotrin) 81 mg PO DAILY [facility] Clopidogrel Bisulfate (Plavix) 75 mg PO DAILY [facility] Epoetin Phil (Procrit) 10,000 unit IV TTS [facility] Famotidine (Pepcid) 20 mg PO DAILY [facility] Gabapentin (Neurontin) 300 mg PO DAILY [facility] Heparin Sodium (Porcine) (Heparin) 5,000 units SC Q12 [facility] Home Med (Calcium Acetate [Phoslo]) 2 tab PO TID [facility] Ceftriaxone Sodium 1 gm/ (Sodium Chloride) 100 mls @ 100 mls/hr IVPB DAILY [facility] Azithromycin 500 mg/ Sodium (Chloride) 250 mls @ 250 mls/hr IVPB DAILY [facility] Isosorbide Dinitrate (Isordil) 20 mg PO DAILY [facility] Loperamide HCl (Imodium) 2 mg PO TID PRN PRN Reason: Diarrhea Metoprolol Tartrate (Lopressor) 25 mg PO BID [facility] Midodrine (Proamatine) 5 mg PO TID [facility] Oxycodone/Acetaminophen (Percocet 5/325 Mg Tab) 1 tab PO Q4H PRN PRN Reason: Pain Stop: 11/02/16 19:47 Prochlorperazine (Compazine) 10 mg PO BID PRN PRN Reason: Nausea/Vomiting Sevelamer Carbonate (Renvela) 3 mg PO TID [facility] Sucralfate (Carafate Tab) 1 gm PO TID [facility] - Labs Labs: 10/30/16 21:52 10/30/16 21:52 PT 12.5 SECONDS (9.7-12.2) H 10/30/16 21:52 INR 1.1 10/30/16 21:52 APTT 38 SECONDS (21-34) H 10/30/16 21:52 - Constitutional Appears: No Acute Distress, Cachectic, Chronically Ill - Head Exam Head Exam: ATRAUMATIC, NORMAL INSPECTION - Eye Exam Eye Exam: Normal appearance - ENT Exam ENT Exam: Mucous Membranes Moist - Neck Exam Neck Exam: Normal Inspection - Respiratory Exam Respiratory Exam: Decreased Breath Sounds, NORMAL BREATHING PATTERN - Cardiovascular Exam Cardiovascular Exam: REGULAR RHYTHM, +S1, +S2 - GI/Abdominal Exam GI & Abdominal Exam: Soft. 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 Small b/l pleural effusion. -Follow pulmonary recommendations CHF with acute exacerbation -Continue HD -Continue with midodrine, Metoprolol -Discontinue Norvasc Anemia -Hgb stable at 9.9 today CAD -Plavix, ASA Failure to Thrive, chronic pain -Per last hospitalization, patient and family were not ready to sign POLST -Percocet Q4 prn -Fentanyl patch from home Prophylaxis -Pepcid -Heparin -PT/OT Case discussed with Dr. Newell
[2016-10-31] MEDS ORDERED: Epoetin Alfa 10,000 unit/ml Dialysis IV SCH (10:00)
[2016-10-31] MEDS ORDERED: CALCIUM ACETATE PO SCH (10:00)
[2016-10-31] MEDS: Azithromycin 500 MG in Sodium Chloride 0.9% 250 ML IVPB SCH (12:26)
--- NOTE | 2016-10-31 13:28 | CP.PCM.CON ---
History of Present Illness - History of Present Illness History of Present Illness: 66 y/o HF present with shortness of breath and fluid overload. last hd sunday per pt, usually cuts treatment short due to cramping. recurrent hospitalizations. pt was emergently dialyzed last night and is currently on hd again. symptoms much improved PMH: Anemia, Arthritis, Atrial Fibrillation, CAD, Cardia Arrhythmia, COPD, Depression, HTN, Hyperlipidemia, Migraine, Osteoporosis, Pancreatitis, Peripheral Edema, End Stage Renal Disease, Chronic Kidney Disease Comment Only: CHF (A-fib, CAD) Surgical History: Cholecystectomy, Endoscopy, Pacemaker, AV GRAFTS X 2 OTHER PMH: ESRD HTN DM2 NEPHROGENIC FIBROSING DERMOPATHY COPD FAILED RENAL TRANSPLANTS X 2 Review of Systems - Constitutional Additional comments: as per hpi Past Patient History - Infectious Disease Hx of Infectious Diseases: None - Tetanus Immunizations Tetanus Immunization: Unknown - Past Medical History & Family History Past Medical History?: Yes - Past Social History Smoking Status: Former Smoker - CARDIAC Hx Cardiac Disorders: Yes Hx Atrial Fibrillation: Yes Hx Cardia Arrhythmia: Yes Hx Congestive Heart Failure: Yes (A-fib, CAD) Hx Hypertension: Yes Hx Pacemaker: Yes Hx Peripheral Edema: Yes - PULMONARY Hx Respiratory Disorders: Yes Hx Asthma: Yes Hx Chronic Obstructive Pulmonary Disease (COPD): Yes - NEUROLOGICAL Hx Neurological Disorder: Yes Hx Migraine: Yes - HEENT Hx HEENT Problems: Yes Hx Glaucoma: Yes (rt eye) - RENAL Hx Chronic Kidney Disease: Yes Hx Dialysis: Yes Type of Dialysis Access: Right arm fistula Date of Last Dialysis Treatment: 10/30/16 Hx Renal Failure: Yes - ENDOCRINE/METABOLIC Hx Endocrine Disorders: No - HEMATOLOGICAL/ONCOLOGICAL Hx Blood Disorders: Yes Hx Anemia: Yes - INTEGUMENTARY Hx Dermatological Problems: Yes Other/Comment: Scleroderma of both arms/both legs - MUSCULOSKELETAL/RHEUMATOLOGICAL Hx Musculoskeletal Disorders: Yes Hx Arthritis: Yes Hx Falls: No Hx Osteoporosis: Yes - GASTROINTESTINAL Hx Gastrointestinal Disorders: Yes Hx Constipation: Yes Hx Pancreatitis: Yes - GENITOURINARY/GYNECOLOGICAL Hx Genitourinary Disorders: No Hx Sexually Transmitted Disorders: No - PSYCHIATRIC Hx Psychophysiologic Disorder: Yes Hx Depression: Yes Hx Substance Use: No - SURGICAL HISTORY Hx Surgeries: Yes Hx Arteriovenous Shunt: Yes (Right arm fistula) Hx Cholecystectomy: Yes - ANESTHESIA Hx Anesthesia: Yes Hx Anesthesia Reactions: No Hx Malignant Hyperthermia: No Meds Allergies/Adverse Reactions: Allergies Allergy/AdvReac Type Severity Reaction Status Date / Time vancomycin Allergy Severe ITCHING Verified 09/26/16 09:03 budesonide [From Symbicort] Allergy ITCHING Verified 09/26/16 09:03 formoterol [From Symbicort] Allergy ITCHING Verified 09/26/16 09:03 gabapentin Allergy RASH Verified 09/26/16 15:56 - Medications Medications: Current Medications Albuterol/Ipratropium (Duoneb 3 Mg/0.5 Mg (3 Ml) Ud) 3 ml INH RQ6 [facility] Last Admin: 10/31/16 08:27 Dose: 3 ml Amlodipine Besylate (Norvasc) 5 mg PO DAILY [facility] Last Admin: 10/31/16 10:21 Dose: Not Given Aspirin (Ecotrin) 81 mg PO DAILY [facility] Last Admin: 10/31/16 10:20 Dose: Not Given Clopidogrel Bisulfate (Plavix) 75 mg PO DAILY [facility] Last Admin: 10/31/16 10:21 Dose: Not Given Epoetin Phil (Procrit) 10,000 unit IV TTS [facility] Last Admin: 10/31/16 11:26 Dose: 10,000 unit Famotidine (Pepcid) 20 mg PO DAILY [facility] Last Admin: 10/31/16 10:21 Dose: Not Given Gabapentin (Neurontin) 300 mg PO DAILY [facility] Last Admin: 10/31/16 10:21 Dose: Not Given Heparin Sodium (Porcine) (Heparin) 5,000 units SC Q12 [facility] Last Admin: 10/31/16 10:21 Dose: Not Given Home Med (Calcium Acetate [Phoslo]) 2 tab PO TID [facility] Last Admin: 10/31/16 10:20 Dose: Not Given Ceftriaxone Sodium 1 gm/ (Sodium Chloride) 100 mls @ 100 mls/hr IVPB DAILY [facility] Last Admin: 10/31/16 12:28 Dose: 100 mls/hr Azithromycin 500 mg/ Sodium (Chloride) 250 mls @ 250 mls/hr IVPB DAILY [facility] Last Admin: 10/31/16 12:26 Dose: 250 mls/hr Isosorbide Dinitrate (Isordil) 20 mg PO DAILY [facility] Last Admin: 10/31/16 10:21 Dose: Not Given Loperamide HCl (Imodium) 2 mg PO TID PRN PRN Reason: Diarrhea Metoprolol Tartrate (Lopressor) 25 mg PO BID [facility] Last Admin: 10/31/16 10:21 Dose: Not Given Midodrine (Proamatine) 5 mg PO TID [facility] Last Admin: 10/31/16 11:22 Dose: 5 mg Oxycodone/Acetaminophen (Percocet 5/325 Mg Tab) 1 tab PO Q4H PRN PRN Reason: Pain Stop: 11/02/16 19:47 Prochlorperazine (Compazine) 10 mg PO BID PRN PRN Reason: Nausea/Vomiting Sevelamer Carbonate (Renvela) 3 mg PO TID [facility] Last Admin: 10/31/16 10:21 Dose: Not Given Sucralfate (Carafate Tab) 1 gm PO TID [facility] Last Admin: 10/31/16 10:20 Dose: Not Given Physical Exam - Constitutional Appears: Cachectic, Chronically Ill - Head Exam Head Exam: NORMAL INSPECTION - Eye Exam Eye Exam: Normal appearance - ENT Exam ENT Exam: Mucous Membranes Moist, Normal Exam - Neck Exam Neck exam: Positive for: Normal Inspection - Respiratory Exam Respiratory Exam: Decreased Breath Sounds, NORMAL BREATHING PATTERN - Cardiovascular Exam Cardiovascular Exam: Irregular Rhythm - GI/Abdominal Exam GI & Abdominal Exam: Normal Bowel Sounds, Soft - Extremities Exam Extremities exam: Positive for: normal inspection Additional comments: chronic skin changes / ulcerations Results - Vital Signs Recent Vital Signs: Last Vital Signs Temp 97.9 F 10/31/16 10:00 Pulse 68 10/31/16 13:00 Resp 18 10/31/16 10:00 BP 94/53 L 10/31/16 13:00 Pulse Ox 100 10/31/16 13:00 - Labs Result Diagrams: 10/30/16 21:52 10/30/16 21:52 Labs: Laboratory Results - last 24 hr 10/30/16 10/30/16 10/30/16 21:52 21:52 21:52 WBC 3.2 L RBC 2.96 L Hgb 9.9 L Hct 31.4 L MCV 106.2 H D MCH 33.6 H MCHC 31.7 L RDW 17.7 H Plt Count 93 L D MPV 7.8 Neut % (Auto) 64.2 Lymph % (Auto) 20.6 Moca % (Auto) 11.9 H Eos % (Auto) 2.6 Baso % (Auto) 0.7 Neut # 2.0 Lymph # 0.7 L Moca # 0.4 Eos # 0.1 Baso # 0.0 PT 12.5 H INR 1.1 APTT 38 H Sodium 141 Potassium 4.8 Chloride 94 L Carbon Dioxide 29 Anion Gap 23 H BUN 62 H Creatinine 3.8 H Est GFR ( Amer) 14 Est GFR (Non-Af Amer) 12 Random Glucose 87 Calcium 8.7 Assessment & Plan - Assessment and Plan (Free Text) Assessment: # chf / fluid overload # esrd # hypotension, chronic # failure to thrive # chronic pain # anemia plan: hd today and then tts, compliance w/ treatment encouraged marcus amador isidoro w/ hd supportive crae
[2016-10-31] MEDS: Oxycodone/Acetaminophen 5/325 mg Tab PO PRN (14:13)
--- NOTE | 2016-10-31 14:14 | CP.PCM.CON ---
History of Present Illness - History of Present Illness History of Present Illness: Reason for consult: congestion The patient is a 66 year old female with a past medical history of ESRD, who was sent to the emergency department yesterday by her PMD for shortness of breath for one day. She was admitted to the medical floor and sent for hemodialysis last night and again this AM as her normal HD schedule is T/Thurs/ Sat. Today patient was seen and examined bedside in the HD unit. She reports that she still has shortness of breath. She denies chest pain, n/v/d/c, f/c. PMHx: Anemia, Arthritis, Asthma, Afib, CAD, CHF, COPD, Depression, HTN, HLD, Migraines, osteoporosis, ESRD, CKD SHx: Cholecystectomy, endoscopy, Pacemaker placement, Angioplasty (2013), Dialysis arteriovenostomy (2013), Peripheral vascular stent placement (2013), venous catheter placement for HD (2013) Family hx: pt states unknown Social hx: denied ETOH, drug, and tobacco use Allergies: Vancomycin, budesonide, formoterol, gabapentin ECG in ED (10/30/16): RBBB, no acute changes from prior ECG CXR (10/30/16): The diffuse bilateral alveolar opacity, left greater than right. It is most prominent at the right base but is seen diffusely throughout the left lung. This may reflect bilateral pneumonia or pulmonary edema. Review of Systems - Review of Systems All systems: reviewed and no additional remarkable complaints except (Shortness of breath) Past Patient History - Infectious Disease Hx of Infectious Diseases: None - Tetanus Immunizations Tetanus Immunization: Unknown - Past Medical History & Family History Past Medical History?: Yes - Past Social History Smoking Status: Former Smoker - CARDIAC Hx Cardiac Disorders: Yes Hx Atrial Fibrillation: Yes Hx Cardia Arrhythmia: Yes Hx Congestive Heart Failure: Yes (A-fib, CAD) Hx Hypertension: Yes Hx Pacemaker: Yes Hx Peripheral Edema: Yes - PULMONARY Hx Respiratory Disorders: Yes Hx Asthma: Yes Hx Chronic Obstructive Pulmonary Disease (COPD): Yes - NEUROLOGICAL Hx Neurological Disorder: Yes Hx Migraine: Yes - HEENT Hx HEENT Problems: Yes Hx Glaucoma: Yes (rt eye) - RENAL Hx Chronic Kidney Disease: Yes Hx Dialysis: Yes Type of Dialysis Access: Right arm fistula Date of Last Dialysis Treatment: 10/30/16 Hx Renal Failure: Yes - ENDOCRINE/METABOLIC Hx Endocrine Disorders: No - HEMATOLOGICAL/ONCOLOGICAL Hx Blood Disorders: Yes Hx Anemia: Yes - INTEGUMENTARY Hx Dermatological Problems: Yes Other/Comment: Scleroderma of both arms/both legs - MUSCULOSKELETAL/RHEUMATOLOGICAL Hx Musculoskeletal Disorders: Yes Hx Arthritis: Yes Hx Falls: No Hx Osteoporosis: Yes - GASTROINTESTINAL Hx Gastrointestinal Disorders: Yes Hx Constipation: Yes Hx Pancreatitis: Yes - GENITOURINARY/GYNECOLOGICAL Hx Genitourinary Disorders: No Hx Sexually Transmitted Disorders: No - PSYCHIATRIC Hx Psychophysiologic Disorder: Yes Hx Depression: Yes Hx Substance Use: No - SURGICAL HISTORY Hx Surgeries: Yes Hx Arteriovenous Shunt: Yes (Right arm fistula) Hx Cholecystectomy: Yes - ANESTHESIA Hx Anesthesia: Yes Hx Anesthesia Reactions: No Hx Malignant Hyperthermia: No Meds Allergies/Adverse Reactions: Allergies Allergy/AdvReac Type Severity Reaction Status Date / Time vancomycin Allergy Severe ITCHING Verified 09/26/16 09:03 budesonide [From Symbicort] Allergy ITCHING Verified 09/26/16 09:03 formoterol [From Symbicort] Allergy ITCHING Verified 09/26/16 09:03 gabapentin Allergy RASH Verified 09/26/16 15:56 - Medications Medications: Current Medications Albuterol/Ipratropium (Duoneb 3 Mg/0.5 Mg (3 Ml) Ud) 3 ml INH RQ6 [facility] Last Admin: 10/31/16 08:27 Dose: 3 ml Aspirin (Ecotrin) 81 mg PO DAILY [facility] Last Admin: 10/31/16 10:20 Dose: Not Given Calcium Acetate (Phoslo) 1,334 mg PO TID [facility] Clopidogrel Bisulfate (Plavix) 75 mg PO DAILY [facility] Last Admin: 10/31/16 10:21 Dose: Not Given Epoetin Phil (Procrit) 10,000 unit IV TTS [facility] Last Admin: 10/31/16 11:26 Dose: 10,000 unit Famotidine (Pepcid) 20 mg PO DAILY [facility] Last Admin: 10/31/16 10:21 Dose: Not Given Gabapentin (Neurontin) 300 mg PO DAILY [facility] Last Admin: 10/31/16 10:21 Dose: Not Given Heparin Sodium (Porcine) (Heparin) 5,000 units SC Q12 [facility] Last Admin: 10/31/16 10:21 Dose: Not Given Ceftriaxone Sodium 1 gm/ (Sodium Chloride) 100 mls @ 100 mls/hr IVPB DAILY [facility] Last Admin: 10/31/16 12:28 Dose: 100 mls/hr Azithromycin 500 mg/ Sodium (Chloride) 250 mls @ 250 mls/hr IVPB DAILY [facility] Last Admin: 10/31/16 12:26 Dose: 250 mls/hr Isosorbide Dinitrate (Isordil) 20 mg PO DAILY [facility] Last Admin: 10/31/16 10:21 Dose: Not Given Loperamide HCl (Imodium) 2 mg PO TID PRN PRN Reason: Diarrhea Metoprolol Tartrate (Lopressor) 25 mg PO BID [facility] Last Admin: 10/31/16 10:21 Dose: Not Given Midodrine (Proamatine) 5 mg PO TID [facility] Last Admin: 10/31/16 11:22 Dose: 5 mg Oxycodone/Acetaminophen (Percocet 5/325 Mg Tab) 1 tab PO Q4H PRN PRN Reason: Pain Stop: 11/02/16 19:47 Prochlorperazine (Compazine) 10 mg PO BID PRN PRN Reason: Nausea/Vomiting Sevelamer Carbonate (Renvela) 3 mg PO TID [facility] Sucralfate (Carafate Tab) 1 gm PO TID [facility] Last Admin: 10/31/16 10:20 Dose: Not Given Physical Exam - Head Exam Head Exam: ATRAUMATIC, NORMOCEPHALIC - Eye Exam Eye Exam: Normal appearance - ENT Exam ENT Exam: Mucous Membranes Moist - Neck Exam Neck exam: Positive for: Normal Inspection - Respiratory Exam Respiratory Exam: Decreased Breath Sounds Results - Vital Signs Recent Vital Signs: Last Vital Signs Temp 97.9 F 10/31/16 10:00 Pulse 68 10/31/16 13:00 Resp 18 10/31/16 10:00 BP 94/53 L 10/31/16 13:00 Pulse Ox 100 10/31/16 13:00 - Labs Result Diagrams: 10/30/16 21:52 10/30/16 21:52 Labs: Laboratory Results - last 24 hr 10/30/16 10/30/16 10/30/16 21:52 21:52 21:52 WBC 3.2 L RBC 2.96 L Hgb 9.9 L Hct 31.4 L MCV 106.2 H D MCH 33.6 H MCHC 31.7 L RDW 17.7 H Plt Count 93 L D MPV 7.8 Neut % (Auto) 64.2 Lymph % (Auto) 20.6 [place] % (Auto) 11.9 H Eos % (Auto) 2.6 Baso % (Auto) 0.7 Neut # 2.0 Lymph # 0.7 L [place] # 0.4 Eos # 0.1 Baso # 0.0 PT 12.5 H INR 1.1 APTT 38 H Sodium 141 Potassium 4.8 Chloride 94 L Carbon Dioxide 29 Anion Gap 23 H BUN 62 H Creatinine 3.8 H Est GFR ( Amer) 14 Est GFR (Non-Af Amer) 12 Random Glucose 87 Calcium 8.7 Assessment & Plan (1) End stage renal failure on dialysis Status: Chronic (2) COPD (chronic obstructive pulmonary disease) Status: Acute (3) Pneumonia Status: Acute (4) Pulmonary edema Status: Acute
[2016-10-31 16:44] VITALS: RESP 20
--- NOTE | 2016-10-31 16:48 | CP.PCM.HP ---
Past Patient History - Infectious Disease Hx of Infectious Diseases: None - Tetanus Immunizations Tetanus Immunization: Unknown - Past Medical History & Family History Past Medical History?: Yes - Past Social History Smoking Status: Former Smoker - CARDIAC Hx Cardiac Disorders: Yes Hx Atrial Fibrillation: Yes Hx Cardia Arrhythmia: Yes Hx Congestive Heart Failure: Yes (A-fib, CAD) Hx Hypertension: Yes Hx Pacemaker: Yes Hx Peripheral Edema: Yes - PULMONARY Hx Respiratory Disorders: Yes Hx Asthma: Yes Hx Chronic Obstructive Pulmonary Disease (COPD): Yes - NEUROLOGICAL Hx Neurological Disorder: Yes Hx Migraine: Yes - HEENT Hx HEENT Problems: Yes Hx Glaucoma: Yes (rt eye) - RENAL Hx Chronic Kidney Disease: Yes Hx Dialysis: Yes Type of Dialysis Access: Right arm fistula Date of Last Dialysis Treatment: 10/30/16 Hx Renal Failure: Yes - ENDOCRINE/METABOLIC Hx Endocrine Disorders: No - HEMATOLOGICAL/ONCOLOGICAL Hx Blood Disorders: Yes Hx Anemia: Yes - INTEGUMENTARY Hx Dermatological Problems: Yes Other/Comment: Scleroderma of both arms/both legs - MUSCULOSKELETAL/RHEUMATOLOGICAL Hx Musculoskeletal Disorders: Yes Hx Arthritis: Yes Hx Falls: No Hx Osteoporosis: Yes - GASTROINTESTINAL Hx Gastrointestinal Disorders: Yes Hx Constipation: Yes Hx Pancreatitis: Yes - GENITOURINARY/GYNECOLOGICAL Hx Genitourinary Disorders: No Hx Sexually Transmitted Disorders: No - PSYCHIATRIC Hx Psychophysiologic Disorder: Yes Hx Depression: Yes Hx Substance Use: No - SURGICAL HISTORY Hx Surgeries: Yes Hx Arteriovenous Shunt: Yes (Right arm fistula) Hx Cholecystectomy: Yes - ANESTHESIA Hx Anesthesia: Yes Hx Anesthesia Reactions: No Hx Malignant Hyperthermia: No Meds Allergies/Adverse Reactions: Allergies Allergy/AdvReac Type Severity Reaction Status Date / Time vancomycin Allergy Severe ITCHING Verified 09/26/16 09:03 budesonide [From Symbicort] Allergy ITCHING Verified 09/26/16 09:03 formoterol [From Symbicort] Allergy ITCHING Verified 09/26/16 09:03 gabapentin Allergy RASH Verified 09/26/16 15:56 Results - Vital Signs Recent Vital Signs: Last Vital Signs Temp 98.3 F 10/31/16 15:00 Pulse 66 10/31/16 15:00 Resp 20 10/31/16 15:00 BP 122/72 10/31/16 15:00 Pulse Ox 99 10/31/16 15:00 - Labs Result Diagrams: 10/30/16 21:52 10/30/16 21:52 Labs: Laboratory Results - last 24 hr 10/30/16 10/30/16 10/30/16 21:52 21:52 21:52 WBC 3.2 L RBC 2.96 L Hgb 9.9 L Hct 31.4 L MCV 106.2 H D MCH 33.6 H MCHC 31.7 L RDW 17.7 H Plt Count 93 L D MPV 7.8 Neut % (Auto) 64.2 Lymph % (Auto) 20.6 [place] % (Auto) 11.9 H Eos % (Auto) 2.6 Baso % (Auto) 0.7 Neut # 2.0 Lymph # 0.7 L [place] # 0.4 Eos # 0.1 Baso # 0.0 PT 12.5 H INR 1.1 APTT 38 H Sodium 141 Potassium 4.8 Chloride 94 L Carbon Dioxide 29 Anion Gap 23 H BUN 62 H Creatinine 3.8 H Est GFR ( Amer) 14 Est GFR (Non-Af Amer) 12 Random Glucose 87 Calcium 8.7
--- NOTE | 2016-10-31 16:49 | CP.PCM.PN ---
Subjective - Date & Time of Evaluation Date of Evaluation: 10/31/16 Time of Evaluation: 09:40 - Subjective Subjective: clinically same Objective - Vital Signs/Intake and Output Vital Signs (last 24 hours): Temp Pulse Resp BP Pulse Ox 98.3 F 66 20 122/72 99 10/31/16 15:00 10/31/16 15:00 10/31/16 15:00 10/31/16 15:00 10/31/16 15:00 Intake and Output: 10/31/16 10/31/16 06:59 18:59 Intake Total 300 320 Balance 300 320 - Medications Medications: Current Medications Albuterol/Ipratropium (Duoneb 3 Mg/0.5 Mg (3 Ml) Ud) 3 ml INH RQ6 [facility] Last Admin: 10/31/16 14:19 Dose: 3 ml Aspirin (Ecotrin) 81 mg PO DAILY [facility] Last Admin: 10/31/16 10:20 Dose: Not Given Calcium Acetate (Phoslo) 1,334 mg PO TID [facility] Last Admin: 10/31/16 14:12 Dose: 1,334 mg Clopidogrel Bisulfate (Plavix) 75 mg PO DAILY [facility] Last Admin: 10/31/16 10:21 Dose: Not Given Epoetin Phil (Procrit) 10,000 unit IV TTS [facility] Last Admin: 10/31/16 11:26 Dose: 10,000 unit Famotidine (Pepcid) 20 mg PO DAILY [facility] Last Admin: 10/31/16 10:21 Dose: Not Given Gabapentin (Neurontin) 300 mg PO DAILY [facility] Last Admin: 10/31/16 10:21 Dose: Not Given Heparin Sodium (Porcine) (Heparin) 5,000 units SC Q12 [facility] Last Admin: 10/31/16 10:21 Dose: Not Given Ceftriaxone Sodium 1 gm/ (Sodium Chloride) 100 mls @ 100 mls/hr IVPB DAILY [facility] Last Admin: 10/31/16 12:28 Dose: 100 mls/hr Azithromycin 500 mg/ Sodium (Chloride) 250 mls @ 250 mls/hr IVPB DAILY [facility] Last Admin: 10/31/16 12:26 Dose: 250 mls/hr Isosorbide Dinitrate (Isordil) 20 mg PO DAILY [facility] Last Admin: 10/31/16 10:21 Dose: Not Given Loperamide HCl (Imodium) 2 mg PO TID PRN PRN Reason: Diarrhea Metoprolol Tartrate (Lopressor) 25 mg PO BID [facility] Last Admin: 10/31/16 10:21 Dose: Not Given Midodrine (Proamatine) 5 mg PO TID [facility] Last Admin: 10/31/16 14:12 Dose: 5 mg Oxycodone/Acetaminophen (Percocet 5/325 Mg Tab) 1 tab PO Q4H PRN PRN Reason: Pain Stop: 11/02/16 19:47 Last Admin: 10/31/16 14:13 Dose: 1 tab Prochlorperazine (Compazine) 10 mg PO BID PRN PRN Reason: Nausea/Vomiting Sevelamer Carbonate (Renvela) 3 mg PO TID [facility] Sucralfate (Carafate Tab) 1 gm PO TID [facility] Last Admin: 10/31/16 14:11 Dose: 1 gm - Labs Labs: 10/30/16 21:52 10/30/16 21:52 PT 12.5 SECONDS (9.7-12.2) H 10/30/16 21:52 INR 1.1 10/30/16 21:52 APTT 38 SECONDS (21-34) H 10/30/16 21:52 - Constitutional Appears: Well - Head Exam Head Exam: ATRAUMATIC, NORMAL INSPECTION, NORMOCEPHALIC - Eye Exam Eye Exam: EOMI, Normal appearance, PERRL Pupil Exam: NORMAL ACCOMODATION, PERRL - ENT Exam ENT Exam: Mucous Membranes Moist, Normal Exam - Neck Exam Neck Exam: Full ROM, Normal Inspection. absent: Lymphadenopathy - Respiratory Exam Respiratory Exam: Decreased Breath Sounds - Cardiovascular Exam Cardiovascular Exam: REGULAR RHYTHM, +S1, +S2 - GI/Abdominal Exam GI & Abdominal Exam: Soft, Diminished Bowel Sounds - Rectal Exam Rectal Exam: Deferred
[2016-11-01] MEDS: Albuterol-Ipratrop 3 mg / 0.5 (3 ml) UD INH SCH ×3 (01:46→13:47)
[2016-11-01] MEDS: Oxycodone/Acetaminophen 5/325 mg Tab PO PRN ×2 (01:49→11:28)
--- NOTE | 2016-11-01 09:58 | CP.PCM.PN ---
Subjective - Date & Time of Evaluation Date of Evaluation: 11/01/16 Time of Evaluation: 09:55 - Subjective Subjective: s/p dialysis 10/31- UF 1700ml Appears same chronically ill often noncompliant with dialysis only c/o diffuse pains Objective - Vital Signs/Intake and Output Vital Signs (last 24 hours): Temp Pulse Resp BP Pulse Ox 97.6 F 60 20 113/67 99 11/01/16 08:17 11/01/16 08:17 11/01/16 08:17 11/01/16 08:17 11/01/16 08:17 Intake and Output: 11/01/16 11/01/16 06:59 18:59 Intake Total 240 Balance 240 - Medications Medications: Current Medications Albuterol/Ipratropium (Duoneb 3 Mg/0.5 Mg (3 Ml) Ud) 3 ml INH RQ6 [facility] Last Admin: 11/01/16 08:25 Dose: 3 ml Aspirin (Ecotrin) 81 mg PO DAILY [facility] Last Admin: 10/31/16 10:20 Dose: Not Given Calcium Acetate (Phoslo) 1,334 mg PO TID [facility] Last Admin: 10/31/16 17:42 Dose: 1,334 mg Clopidogrel Bisulfate (Plavix) 75 mg PO DAILY [facility] Last Admin: 10/31/16 10:21 Dose: Not Given Epoetin Phil (Procrit) 10,000 unit IV TTS [facility] Last Admin: 10/31/16 11:26 Dose: 10,000 unit Famotidine (Pepcid) 20 mg PO DAILY [facility] Last Admin: 10/31/16 10:21 Dose: Not Given Gabapentin (Neurontin) 300 mg PO DAILY [facility] Last Admin: 10/31/16 10:21 Dose: Not Given Heparin Sodium (Porcine) (Heparin) 5,000 units SC Q12 [facility] Last Admin: 10/31/16 21:54 Dose: 5,000 units Ceftriaxone Sodium 1 gm/ (Sodium Chloride) 100 mls @ 100 mls/hr IVPB DAILY [facility] Last Admin: 10/31/16 12:28 Dose: 100 mls/hr Azithromycin 500 mg/ Sodium (Chloride) 250 mls @ 250 mls/hr IVPB DAILY [facility] Last Admin: 10/31/16 12:26 Dose: 250 mls/hr Isosorbide Dinitrate (Isordil) 20 mg PO DAILY [facility] Last Admin: 10/31/16 10:21 Dose: Not Given Loperamide HCl (Imodium) 2 mg PO TID PRN PRN Reason: Diarrhea Metoprolol Tartrate (Lopressor) 25 mg PO BID [facility] Last Admin: 10/31/16 17:42 Dose: 25 mg Midodrine (Proamatine) 5 mg PO TID [facility] Last Admin: 10/31/16 17:43 Dose: 5 mg Oxycodone/Acetaminophen (Percocet 5/325 Mg Tab) 1 tab PO Q4H PRN PRN Reason: Pain Stop: 11/02/16 19:47 Last Admin: 11/01/16 01:49 Dose: 1 tab Prochlorperazine (Compazine) 10 mg PO BID PRN PRN Reason: Nausea/Vomiting Sevelamer Carbonate (Renvela) 800 mg PO TID [facility] Last Admin: 10/31/16 19:01 Dose: 800 mg Sucralfate (Carafate Tab) 1 gm PO TID [facility] Last Admin: 10/31/16 17:43 Dose: 1 gm - Labs Labs: 10/30/16 21:52 10/30/16 21:52 PT 12.5 SECONDS (9.7-12.2) H 10/30/16 21:52 INR 1.1 10/30/16 21:52 APTT 38 SECONDS (21-34) H 10/30/16 21:52 - Constitutional Appears: No Acute Distress, Confused, Chronically Ill - Head Exam Head Exam: ATRAUMATIC, NORMAL INSPECTION - Eye Exam Eye Exam: EOMI, PERRL - Neck Exam Neck Exam: Normal Inspection. absent: Tenderness - Respiratory Exam Respiratory Exam: Rhonchi, NORMAL BREATHING PATTERN - Cardiovascular Exam Cardiovascular Exam: Irregular Rhythm, +S1 - GI/Abdominal Exam GI & Abdominal Exam: Soft. absent: Tenderness - Extremities Exam Extremities Exam: Calf Tenderness, Tenderness - Neurological Exam Neurological Exam: Awake, CN II-XII Intact - Skin Skin Exam: Dry, Warm Assessment and Plan (1) End stage renal failure on dialysis Status: Chronic (2) CHF (congestive heart failure) Status: Acute (3) DDD (degenerative disc disease), lumbosacral Status: Acute (4) Thrombocytopenia Status: Acute (5) Nephrogenic fibrosing dermopathy Status: Chronic - Assessment and Plan (Free Text) Plan: Continue dialysis TTS Supportive care Encourage better compliance
[2016-11-01] MEDS: Azithromycin 500 MG in Sodium Chloride 0.9% 250 ML IVPB SCH (10:07)
[2016-11-01] MEDS: cefTRIAXone 1 gm in Water For Injection 2.1 ML IM ONE ×2 (10:59→11:23)
[2016-11-01 11:22] LABS: BASO % 1.3 % (0.0-2.0); EOS # 0.1 K/uL (0.0-0.7); EOS % 2.1 % (0.0-4.0); HEMATOCRIT 34.2 % (34.0-47.0); LYMPH # 0.7 K/uL (1.0-4.3); LYMPH % 22.6 % (20.0-40.0); MEAN CELL VOLUME 107.2 fL (81.0-99.0); MEAN CORPUSCULAR HEMOGLOBIN 32.8 pg (27.0-31.0); MEAN CORPUSCULAR HGB CONC 30.6 g/dL (33.0-37.0); MEAN PLATELET VOLUME 9.4 fL (7.2-11.7); MONO # 0.3 K/uL (0.0-0.8); NRBC % 0.1 % (0.0-2.0); RED CELL DISTRIBUTION WIDTH 17.8 % (11.5-14.5); WHITE BLOOD COUNT 3.1 K/uL (4.8-10.8)
[2016-11-01 11:37] LABS: POTASSIUM 4.1 mmol/L (3.6-5.2)
[2016-11-01 11:39] LABS: ALB/GLOB RATIO 0.8 (1.0-2.1); BILIRUBIN,TOTAL 0.7 mg/dL (0.2-1.3); TOTAL PROTEIN 8.4 g/dL (6.3-8.3)
[2016-11-01 11:40] LABS: CALCIUM 8.8 mg/dl (8.6-10.4)
--- NOTE | 2016-11-01 12:19 | CP.PCM.PN ---
Subjective - Date & Time of Evaluation Date of Evaluation: 11/01/16 Time of Evaluation: 10:00 - Subjective Subjective: PGY-2 Resident Progress Note Patient seen and examined at bedside. Patient reports her shortness of breath improved. Patient has poor IV access and is not a candidate for PICC or mid line due to scleroderma, left pacemaker, left Failed AV shunt, functioning right AV shunt. Patient was refusing her oral medications in the morning. Encouragement was provided and patient eventually agreed to take her PO azithromycin and IM rocephin. Patient denies headache, fever, chills, chest pain , coughs, nausea, or vomiting. Objective - Vital Signs/Intake and Output Vital Signs (last 24 hours): Temp Pulse Resp BP Pulse Ox 97.6 F 60 20 113/67 99 11/01/16 08:17 11/01/16 08:17 11/01/16 08:17 11/01/16 08:17 11/01/16 08:17 Intake and Output: 11/01/16 11/01/16 06:59 18:59 Intake Total 240 Balance 240 - Medications Medications: Current Medications Albuterol/Ipratropium (Duoneb 3 Mg/0.5 Mg (3 Ml) Ud) 3 ml INH RQ6 [facility] Last Admin: 11/01/16 08:25 Dose: 3 ml Aspirin (Ecotrin) 81 mg PO DAILY [facility] Last Admin: 11/01/16 10:05 Dose: 81 mg Azithromycin (Zithromax) 500 mg PO DAILY [facility] Last Admin: 11/01/16 11:22 Dose: 500 mg Calcium Acetate (Phoslo) 1,334 mg PO TID [facility] Last Admin: 11/01/16 10:05 Dose: 1,334 mg Clopidogrel Bisulfate (Plavix) 75 mg PO DAILY [facility] Last Admin: 11/01/16 10:05 Dose: 75 mg Epoetin Phil (Procrit) 10,000 unit IV TTS [facility] Last Admin: 10/31/16 11:26 Dose: 10,000 unit Famotidine (Pepcid) 20 mg PO DAILY [facility] Last Admin: 11/01/16 10:05 Dose: 20 mg Gabapentin (Neurontin) 300 mg PO DAILY [facility] Last Admin: 11/01/16 10:04 Dose: 300 mg Heparin Sodium (Porcine) (Heparin) 5,000 units SC Q12 [facility] Last Admin: 11/01/16 10:06 Dose: 5,000 units Isosorbide Dinitrate (Isordil) 20 mg PO DAILY [facility] Last Admin: 11/01/16 10:06 Dose: 20 mg Loperamide HCl (Imodium) 2 mg PO TID PRN PRN Reason: Diarrhea Metoprolol Tartrate (Lopressor) 25 mg PO BID [facility] Last Admin: 11/01/16 10:04 Dose: 25 mg Midodrine (Proamatine) 5 mg PO TID [facility] Last Admin: 11/01/16 10:06 Dose: 5 mg Oxycodone/Acetaminophen (Percocet 5/325 Mg Tab) 1 tab PO Q4H PRN PRN Reason: Pain Stop: 11/02/16 19:47 Last Admin: 11/01/16 11:28 Dose: 1 tab Prochlorperazine (Compazine) 10 mg PO BID PRN PRN Reason: Nausea/Vomiting Sevelamer Carbonate (Renvela) 800 mg PO TID [facility] Last Admin: 11/01/16 10:05 Dose: 800 mg Sucralfate (Carafate Tab) 1 gm PO TID [facility] Last Admin: 11/01/16 10:05 Dose: 1 gm - Labs Labs: 11/01/16 11:14 11/01/16 11:14 PT 12.5 SECONDS (9.7-12.2) H 10/30/16 21:52 INR 1.1 10/30/16 21:52 APTT 38 SECONDS (21-34) H 10/30/16 21:52 - Constitutional Appears: Non-toxic, No Acute Distress, Chronically Ill - Eye Exam Eye Exam: Normal appearance - ENT Exam ENT Exam: Mucous Membranes Moist - Neck Exam Neck Exam: Normal Inspection - Respiratory Exam Respiratory Exam: NORMAL BREATHING PATTERN. absent: Respiratory Distress - Cardiovascular Exam Cardiovascular Exam: REGULAR RHYTHM, +S1, +S2 - GI/Abdominal Exam GI & Abdominal Exam: Soft. 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 Small b/l pleural effusion. -Follow pulmonary recommendations -Patient will continue to take oral azithromycin after discharged from the hospital CHF with acute exacerbation -Continue HD -Continue with midodrine, Metoprolol -Discontinue Norvasc Anemia -Hgb stable at 10.5 today CAD -Plavix, ASA Failure to Thrive, chronic pain -Per last hospitalization, patient and family were not ready to sign POLST -Percocet Q4 prn -Fentanyl patch from home Prophylaxis -Pepcid -Heparin -PT/OT Case discussed with Dr. Newell
--- NOTE | 2016-11-01 13:41 | CP.PCM.PN ---
Subjective - Date & Time of Evaluation Date of Evaluation: 11/01/16 Time of Evaluation: 09:20 - Subjective Subjective: clinically same Objective - Vital Signs/Intake and Output Vital Signs (last 24 hours): Temp Pulse Resp BP Pulse Ox 97.6 F 60 20 113/67 99 11/01/16 08:17 11/01/16 08:17 11/01/16 08:17 11/01/16 08:17 11/01/16 08:17 Intake and Output: 11/01/16 11/01/16 06:59 18:59 Intake Total 240 Balance 240 - Medications Medications: Current Medications Albuterol/Ipratropium (Duoneb 3 Mg/0.5 Mg (3 Ml) Ud) 3 ml INH RQ6 [facility] Last Admin: 11/01/16 08:25 Dose: 3 ml Aspirin (Ecotrin) 81 mg PO DAILY [facility] Last Admin: 11/01/16 10:05 Dose: 81 mg Azithromycin (Zithromax) 500 mg PO DAILY [facility] Last Admin: 11/01/16 11:22 Dose: 500 mg Calcium Acetate (Phoslo) 1,334 mg PO TID [facility] Last Admin: 11/01/16 10:05 Dose: 1,334 mg Clopidogrel Bisulfate (Plavix) 75 mg PO DAILY [facility] Last Admin: 11/01/16 10:05 Dose: 75 mg Epoetin Phil (Procrit) 10,000 unit IV TTS [facility] Last Admin: 10/31/16 11:26 Dose: 10,000 unit Famotidine (Pepcid) 20 mg PO DAILY [facility] Last Admin: 11/01/16 10:05 Dose: 20 mg Gabapentin (Neurontin) 300 mg PO DAILY [facility] Last Admin: 11/01/16 10:04 Dose: 300 mg Heparin Sodium (Porcine) (Heparin) 5,000 units SC Q12 [facility] Last Admin: 11/01/16 10:06 Dose: 5,000 units Isosorbide Dinitrate (Isordil) 20 mg PO DAILY [facility] Last Admin: 11/01/16 10:06 Dose: 20 mg Loperamide HCl (Imodium) 2 mg PO TID PRN PRN Reason: Diarrhea Metoprolol Tartrate (Lopressor) 25 mg PO BID [facility] Last Admin: 11/01/16 10:04 Dose: 25 mg Midodrine (Proamatine) 5 mg PO TID [facility] Last Admin: 11/01/16 10:06 Dose: 5 mg Oxycodone/Acetaminophen (Percocet 5/325 Mg Tab) 1 tab PO Q4H PRN PRN Reason: Pain Stop: 11/02/16 19:47 Last Admin: 11/01/16 11:28 Dose: 1 tab Prochlorperazine (Compazine) 10 mg PO BID PRN PRN Reason: Nausea/Vomiting Sevelamer Carbonate (Renvela) 800 mg PO TID [facility] Last Admin: 11/01/16 10:05 Dose: 800 mg Sucralfate (Carafate Tab) 1 gm PO TID [facility] Last Admin: 11/01/16 10:05 Dose: 1 gm - Labs Labs: 11/01/16 11:14 11/01/16 11:14 PT 12.5 SECONDS (9.7-12.2) H 10/30/16 21:52 INR 1.1 10/30/16 21:52 APTT 38 SECONDS (21-34) H 10/30/16 21:52 - Constitutional Appears: Well - Head Exam Head Exam: ATRAUMATIC, NORMAL INSPECTION, NORMOCEPHALIC - Eye Exam Eye Exam: EOMI, Normal appearance, PERRL Pupil Exam: NORMAL ACCOMODATION, PERRL - ENT Exam ENT Exam: Mucous Membranes Moist, Normal Exam - Neck Exam Neck Exam: Full ROM, Normal Inspection. absent: Lymphadenopathy - Respiratory Exam Respiratory Exam: Decreased Breath Sounds - Cardiovascular Exam Cardiovascular Exam: REGULAR RHYTHM, +S1, +S2 - GI/Abdominal Exam GI & Abdominal Exam: Soft, Diminished Bowel Sounds - Rectal Exam Rectal Exam: Deferred
--- NOTE | 2016-11-01 14:26 | PCM.HF ---
Heart Failure Core Measure - Heart Failure Ejection Fraction: 40 % or Greater (EF > 70%) ZAID Inhibitor Prescribed: No Contraindication/Reason for not providing: CKD Beta-Isra Prescribed: Metoprolol Succinate Angiotensin II Receptor Isra Prescribed: No Contraindication/Reason for not providing: CKD Aldosterone Antagonist Prescribed: No Contraindication/Reason for not providing: EF >40 % Hydralazine Nitrate Prescribed: No Contraindication/Reason for not providing: EF >40% Implantable Cardioverter Defibrillator Therapy: No Contraindication/Reason for not providing: pacemaker Cardiac Resynchronization Therapy Prescribed: No Contraindication/Reason for not providing: not indicated - Follow up Follow Up Date (must be within 7 days from discharge): 11/06/16 Follow Up Time: 09:00
--- NOTE | 2016-11-01 17:27 | CP.PCM.PN ---
Subjective - Date & Time of Evaluation Date of Evaluation: 11/01/16 Time of Evaluation: 11:00 - Subjective Subjective: Patient seen and examined. Still complaining of dyspnea on minimal exertion but overall condition much improved Status post hemodialysis yesterday Denies fever or chills, denies chest pain Alert oriented 3 Objective - Vital Signs/Intake and Output Vital Signs (last 24 hours): Temp Pulse Resp BP Pulse Ox 97.6 F 60 20 113/67 99 11/01/16 08:17 11/01/16 08:17 11/01/16 08:17 11/01/16 08:17 11/01/16 08:17 Intake and Output: 11/01/16 11/01/16 06:59 18:59 Intake Total 240 250 Balance 240 250 - Medications Medications: Current Medications Albuterol/Ipratropium (Duoneb 3 Mg/0.5 Mg (3 Ml) Ud) 3 ml INH RQ6 [facility] Last Admin: 11/01/16 13:47 Dose: 3 ml Aspirin (Ecotrin) 81 mg PO DAILY [facility] [place] Last Admin: 11/01/16 10:05 Dose: 81 mg Azithromycin (Zithromax) 500 mg PO DAILY [facility] [place] Last Admin: 11/01/16 11:22 Dose: 500 mg Calcium Acetate (Phoslo) 1,334 mg PO TID [facility] [place] Last Admin: 11/01/16 13:55 Dose: 1,334 mg Clopidogrel Bisulfate (Plavix) 75 mg PO DAILY [facility] [place] Last Admin: 11/01/16 10:05 Dose: 75 mg Epoetin Phil (Procrit) 10,000 unit IV TTS [facility] [place] Last Admin: 10/31/16 11:26 Dose: 10,000 unit Famotidine (Pepcid) 20 mg PO DAILY [facility] [place] Last Admin: 11/01/16 10:05 Dose: 20 mg Gabapentin (Neurontin) 300 mg PO DAILY [facility] [place] Last Admin: 11/01/16 10:04 Dose: 300 mg Heparin Sodium (Porcine) (Heparin) 5,000 units SC Q12 [facility] [place] Last Admin: 11/01/16 10:06 Dose: 5,000 units Isosorbide Dinitrate (Isordil) 20 mg PO DAILY [facility] [place] Last Admin: 11/01/16 10:06 Dose: 20 mg Loperamide HCl (Imodium) 2 mg PO TID PRN PRN Reason: Diarrhea Metoprolol Tartrate (Lopressor) 25 mg PO BID [facility] [place] Last Admin: 11/01/16 10:04 Dose: 25 mg Midodrine (Proamatine) 5 mg PO TID [facility] [place] Last Admin: 11/01/16 13:55 Dose: 5 mg Oxycodone/Acetaminophen (Percocet 5/325 Mg Tab) 1 tab PO Q4H PRN PRN Reason: Pain Stop: 11/02/16 19:47 Last Admin: 11/01/16 11:28 Dose: 1 tab Prochlorperazine (Compazine) 10 mg PO BID PRN PRN Reason: Nausea/Vomiting Sevelamer Carbonate (Renvela) 800 mg PO TID [facility] [place] Last Admin: 11/01/16 13:56 Dose: 800 mg Sucralfate (Carafate Tab) 1 gm PO TID [facility] [place] Last Admin: 11/01/16 13:55 Dose: 1 gm - Labs Labs: 11/01/16 11:14 11/01/16 11:14 PT 12.5 SECONDS (9.7-12.2) H 10/30/16 21:52 INR 1.1 10/30/16 21:52 APTT 38 SECONDS (21-34) H 10/30/16 21:52 - Head Exam Head Exam: ATRAUMATIC, NORMOCEPHALIC - Eye Exam Eye Exam: Normal appearance - ENT Exam ENT Exam: Mucous Membranes Moist - Neck Exam Neck Exam: Normal Inspection - Respiratory Exam Respiratory Exam: Decreased Breath Sounds - Cardiovascular Exam Cardiovascular Exam: REGULAR RHYTHM Assessment and Plan (1) End stage renal failure on dialysis Status: Chronic (2) COPD (chronic obstructive pulmonary disease) Assessment & Plan: Continue nebulizer treatments for now Continue antibiotics and follow up chest x-ray Status: Acute (3) Pneumonia Status: Acute (4) Pulmonary edema Status: Acute
[2016-11-01 17:53] VITALS: BP 92/53; PULSE 69; TEMP 97.8; O2SAT 97
--- NOTE | 2016-11-03 15:57 | CARD ---
APPROVED REPORT EKG Measurement Heart [id number] <Conclusion> Sinus rhythm with 1st degree AV block Right bundle branch block T wave abnormality, consider inferior ischemia Abnormal ECG
== END 2016-11-01 17:45 | disposition home or self-care (01) ==
LOC: C.ER 14:53 → C.9E 16:39 → C.3T 19:28
PROVIDERS: ADMIT Internal Medicine Nephrology; ATTEND Internal Medicine Nephrology
DX: J18.9 Pneumonia, unspecified organism (principal); D64.9 Anemia, unspecified; E78.5 Hyperlipidemia, unspecified; I13.2 Hypertensive heart and chronic kidney disease with heart failure and with stage 5 chronic kidney disease, or end stage renal disease; I48.91 Unspecified atrial fibrillation; I50.9 Heart failure, unspecified; J44.9 Chronic obstructive pulmonary disease, unspecified; N18.6 End stage renal disease; R62.7 Adult failure to thrive; T86.12 Kidney transplant failure; Z95.0 Presence of cardiac pacemaker; Z99.2 Dependence on renal dialysis; Z87.891 Personal history of nicotine dependence
CPT/HCPCS: 36415; 71010; 80048; 80053; 85025; 85610; 85730; 93005; 94640; 97163; 99283; G0257; G0378; G8981; G8982; J0456; J0696; J1644; J7050; Q4081

== ENCOUNTER 2017-02-10 08:00 | Inpatient (IN) | payer MEDICARE, OTHER ==
[2017-02-10 08:00] VITALS: PULSE 146; BMI 24.5
--- NOTE | 2017-02-10 08:36 | C.PDOC ---
History Of Present Illness 67 y/o female presents to ED requesting hemodialysis and with complaints of shortness of breath. Patient states "I need dialysis please", "I couldn't get it because of the holiday". Patient denies chest pain, fever, cough or any other complaints at this time. "I NEED DIALYSIS PLEASE". PS LAST HD ON "I COULDNT GET IT BC OF THE HOLIDAY ". +SOB NO CP, FEVER EXAM MILD DIST NONTOXIC LUNGS +RETRACTIONS TACHYPNEA B/L LOWER RALES NO EDEMA REMAINDER NEG Time Seen by Provider: 02/10/17 08:05 Chief Complaint (Nursing): Shortness Of Breath History Per: Patient History/Exam Limitations: no limitations Onset/Duration Of Symptoms: Days Current Symptoms Are (Timing): Still Present Initiating Event: Upper Respiratory Illness Past Medical History Reviewed: Historical Data, Nursing Documentation, Vital Signs Vital Signs: Last Vital Signs Temp 98.1 F 02/10/17 08:11 Pulse 80 02/10/17 08:11 Resp 18 02/10/17 08:32 BP 134/68 02/10/17 08:11 Pulse Ox 100 02/10/17 09:22 - Medical History PMH: Anemia, Arthritis, Asthma, Atrial Fibrillation, CAD, Cardia Arrhythmia, CHF (A-fib, CAD), COPD, Depression, HTN, Hyperlipidemia, Migraine, Osteoporosis , Pancreatitis, Peripheral Edema, End Stage Renal Disease, Chronic Kidney Disease Surgical History: Cholecystectomy, Endoscopy, Pacemaker - [facility] Procedures ANGIOPLASTY OF OTHER NON-CORONARY VESSEL(S) (12/04/13) DIALYSIS ARTERIOVENOSTOM (12/04/13) DRAINAGE OF LEFT PLEURAL CAVITY, PERCUTANEOUS APPROACH (09/01/16) FLEXIBLE SIGMOIDOSCOPY (07/30/14) FLUOROSCOPY OF LEFT HEART USING LOW OSMOLAR CONTRAST (02/01/16) FLUOROSCOPY OF MULT COR ART USING L OSM CONTRAST (02/01/16) HEMODIALYSIS (09/30/14) INSEJ [id number] PERIPHERAL NON-CORONARY VES STENT(S) (12/04/13) INSERTION OF ONE VASCULAR STENT (12/04/13) MEASURE OF CARDIAC SAMPL & PRESSURE, L HEART, PERC APPROACH (02/01/16) OTHER ENDOSCOPY OF SM INTEST (07/30/14) PACKED CELL TRANSFUSION (09/30/14) PERFORMANCE OF URINARY FILTRATION, MULTIPLE (10/16/16) PERFORMANCE OF URINARY FILTRATION, SINGLE (09/28/16) PROCEDURE ON SINGLE VESSEL (12/04/13) RESPIRATORY VENTILATION, GREATER THAN 96 CONSECUTIVE HOURS (09/01/16) TRANSFUSE NONAUT PLATELETS IN PERIPH VEIN, PERC (09/01/16) VASC PROC REVISION NEC (12/04/13) VENOUS CATHETERIZATION FOR RENAL DIALYSIS (12/04/13) Family History: States: No Known Family Hx - Social History Hx Tobacco Use: No Hx Alcohol Use: No Hx Substance Use: No - Immunization History Hx Tetanus Toxoid Vaccination: Yes Hx Influenza Vaccination: Yes Hx Pneumococcal Vaccination: Yes Review Of Systems Constitutional: Negative for: Fever, Chills Cardiovascular: Negative for: Chest Pain Respiratory: Positive for: Shortness of Breath. Negative for: Cough Gastrointestinal: Negative for: Nausea, Vomiting Skin: Negative for: Rash Physical Exam - Physical Exam Appears: Non-toxic, Other (Mild distress) Skin: Warm, Dry, No Rash Head: Atraumatic, Normacephalic Eye(s): bilateral: Normal Inspection Oral Mucosa: Moist Neck: Normal ROM, Supple Chest: Symmetrical Cardiovascular: Rhythm Regular Respiratory: Rales (bilateral lower), No Rhonchi, No Wheezing, Other ((+) Retractions (+)Tachypnea ) Gastrointestinal/Abdominal: Soft, No Tenderness, No Guarding, No Rebound Extremity: No Pedal Edema, Capillary Refill (<2 seconds) Neurological/Psych: Oriented x3, Normal Speech (Speaking in full sentences), Normal Motor, Normal Sensation ED Course And Treatment - Laboratory Results Result Diagrams: 02/10/17 08:56 O2 Sat by Pulse Oximetry: 100 (RA) - Radiology CXR: Interpreted by Me, Viewed By Me CXR Interpretation: Yes: Other (+CHF). No: Fracture, Cardiomegaly Progress - Re-Evaluation Re-evaluation Note: 02/10/17 08:49 D/W DR Moody NEWELL WILL ADMIT. CONSULT DR COTO FOR HD 02/10/17 09:16 D/W DR HORTA C/F DR COTO WILL CONSULT FOR HD - Data Reviewed Data Reviewed: Lab, Diagnostic imaging, EKG, Old records - Continuity of Care Discussed patient case with:: Patient Discussed pt. case with independent beauty consultant/specialty: Nephrology Disposition Counseled Patient/Family Regarding: Diagnosis, Need For Followup - Disposition Disposition: HOSPITALIZED Disposition Time: 09:19 Condition: STABLE Forms: [facility] (Angolan) - POA Present On Arrival: None - Clinical Impression Clinical Impression: ESRD on dialysis, SOB (shortness of breath) - Scribe Statement The provider has reviewed the documentation as recorded by the Scribmilton Jaffe All medical record entries made by the Scribe were at my direction and personally dictated by me. I have reviewed the chart and agree that the record accurately reflects my personal performance of the history, physical exam, medical decision making, and the department course for this patient. I have also personally directed, reviewed, and agree with the discharge instructions and disposition. Decision To Admit - Pt Status Changed To: Hospital Disposition Of: Observation - . Bed Request Type: Regular Admitting Physician: Porsha Newell Patient Diagnosis: ESRD on dialysis, SOB (shortness of breath)
[2017-02-10 09:03] LABS: BASO % 0.6 % (0.0-2.0); EOS # 0.1 K/uL (0.0-0.7); EOS % 2.9 % (0.0-4.0); HEMATOCRIT 31.3 % (34.0-47.0); LYMPH # 0.4 K/uL (1.0-4.3); LYMPH % 13.6 % (20.0-40.0); MEAN CORPUSCULAR HEMOGLOBIN 31.9 pg (27.0-31.0); MEAN CORPUSCULAR HGB CONC 32.1 g/dL (33.0-37.0); MEAN PLATELET VOLUME 8.7 fL (7.2-11.7); MONO # 0.3 K/uL (0.0-0.8); MONO % 9.1 % (0.0-10.0); NRBC % 0.3 % (0.0-2.0); RED CELL DISTRIBUTION WIDTH 16.8 % (11.5-14.5); WHITE BLOOD COUNT 3.3 K/uL (4.8-10.8)
[2017-02-10 09:05] LABS: MEAN CELL VOLUME 99.5 fL (81.0-99.0)
[2017-02-10 09:32] LABS: BILIRUBIN,TOTAL 1.2 mg/dL (0.2-1.3); CALCIUM 7.5 mg/dl (8.6-10.4)
[2017-02-10 09:38] LABS: TROPONIN I 0.022 ng/mL (0.00-0.120)
--- NOTE | 2017-02-10 10:36 | CP.PCM.CON ---
History of Present Illness - History of Present Illness History of Present Illness: 67 y/o female presents to ED requesting hemodialysis and with complaints of shortness of breath. Patient states her last dialysis was on sunday and was supposed to go today for HD but instead came to ER as did not feel right . Patient denies chest pain, fever, cough or any other complaints at this time. appears comfortable, in no distress, saturating 100 % PMH: Anemia, Arthritis, Asthma, Atrial Fibrillation, CAD, Cardia Arrhythmia, CHF (A-fib, CAD), COPD, Depression, HTN, Hyperlipidemia, Migraine, Osteoporosis , Pancreatitis, Peripheral Edema, End Stage Renal Disease, Chronic Kidney Disease Surgical History: Cholecystectomy, Endoscopy, Pacemaker Family- no family history of ESRD Social- no smoking, alcohol or drugs Review of Systems - Constitutional Constitutional: absent: Chills, Fever - EENT Eyes: absent: Blurred Vision, Discharge Nose/Mouth/Throat: absent: Epistaxis, Dry Mouth - Cardiovascular Cardiovascular: absent: Chest Pain, Leg Edema, Palpitations - Respiratory Respiratory: Dyspnea. absent: Cough, Hemoptysis, Wheezing - Gastrointestinal Gastrointestinal: Constipation. absent: Abdominal Pain, Diarrhea, Vomiting - Musculoskeletal Additional comments: pain in hands- chronic - Neurological Neurological: absent: Dizziness, Focal Weakness, Headaches - Psychiatric Psychiatric: absent: Anxiety, Depression Past Patient History - Infectious Disease Hx of Infectious Diseases: None - Tetanus Immunizations Tetanus Immunization: Unknown - Past Medical History & Family History Past Medical History?: Yes - Past Social History Smoking Status: Former Smoker - CARDIAC Hx Atrial Fibrillation: Yes Hx Cardia Arrhythmia: Yes Hx Congestive Heart Failure: Yes (A-fib, CAD) Hx Hypertension: Yes Hx Pacemaker: Yes Hx Peripheral Edema: Yes - PULMONARY Hx Asthma: Yes Hx Chronic Obstructive Pulmonary Disease (COPD): Yes - NEUROLOGICAL Hx Migraine: Yes - HEENT Hx HEENT Problems: Yes Hx Glaucoma: Yes (rt eye) - RENAL Hx Chronic Kidney Disease: Yes - ENDOCRINE/METABOLIC Hx Endocrine Disorders: No - HEMATOLOGICAL/ONCOLOGICAL Hx Anemia: Yes - INTEGUMENTARY Hx Dermatological Problems: Yes Other/Comment: Scleroderma of both arms/both legs - MUSCULOSKELETAL/RHEUMATOLOGICAL Hx Arthritis: Yes Hx Osteoporosis: Yes - GASTROINTESTINAL Hx Pancreatitis: Yes - GENITOURINARY/GYNECOLOGICAL Hx Sexually Transmitted Disorders: No - PSYCHIATRIC Hx Depression: Yes Hx Substance Use: No - SURGICAL HISTORY Hx Cholecystectomy: Yes - ANESTHESIA Hx Anesthesia: Yes Hx Anesthesia Reactions: No Hx Malignant Hyperthermia: No Meds Allergies/Adverse Reactions: Allergies Allergy/AdvReac Type Severity Reaction Status Date / Time vancomycin Allergy Severe ITCHING Verified 02/10/17 08:09 budesonide [From Symbicort] Allergy ITCHING Verified 02/10/17 08:09 formoterol [From Symbicort] Allergy ITCHING Verified 02/10/17 08:09 gabapentin Allergy RASH Verified 02/10/17 08:09 Physical Exam - Constitutional Appears: Non-toxic, No Acute Distress - Head Exam Head Exam: ATRAUMATIC, NORMOCEPHALIC - Eye Exam Eye Exam: EOMI, PERRL - ENT Exam ENT Exam: Mucous Membranes Moist - Neck Exam Neck exam: Positive for: Full Rom. Negative for: Lymphadenopathy - Respiratory Exam Respiratory Exam: Clear to Auscultation Bilateral. absent: Rhonchi, Wheezes - Cardiovascular Exam Cardiovascular Exam: REGULAR RHYTHM, +S1, +S2 - GI/Abdominal Exam GI & Abdominal Exam: Normal Bowel Sounds, Soft. absent: Tenderness - Extremities Exam Extremities exam: Negative for: pedal edema Additional comments: skin excoriation over fingers- chronic - Psychiatric Exam Psychiatric exam: Depressed - Skin Skin Exam: Dry, Warm Results - Vital Signs Recent Vital Signs: Last Vital Signs Temp 98.1 F 02/10/17 08:11 Pulse 80 02/10/17 09:44 Resp 18 02/10/17 09:44 BP 167/83 H 02/10/17 09:44 Pulse Ox 100 02/10/17 09:44 - Labs Result Diagrams: 02/10/17 08:56 02/10/17 08:56 Labs: Laboratory Results - last 24 hr 02/10/17 02/10/17 08:56 08:56 WBC 3.3 L RBC 3.14 L Hgb 10.0 L Hct 31.3 L MCV 99.5 H D MCH 31.9 H MCHC 32.1 L RDW 16.8 H Plt Count 93 L MPV 8.7 Neut % (Auto) 73.8 Lymph % (Auto) 13.6 L [place] % (Auto) 9.1 Eos % (Auto) 2.9 Baso % (Auto) 0.6 Neut # 2.4 Lymph # 0.4 L [place] # 0.3 Eos # 0.1 Baso # 0.0 Sodium 138 Potassium 6.0 H Chloride 90 L Carbon Dioxide 29 Anion Gap 25 H BUN 73 H Creatinine 4.2 H Est GFR ( Amer) 13 Est GFR (Non-Af Amer) 11 Random Glucose 73 Calcium 7.5 L Total Bilirubin 1.2 AST 23 ALT 15 Alkaline Phosphatase 187 H Troponin I 0.0220 NT-Pro-B Natriuret Pep 80638 H Total Protein 9.0 H Albumin 4.4 Globulin 4.6 H Albumin/Globulin Ratio 1.0 Assessment & Plan (1) ESRD (end stage renal disease) on dialysis Status: Acute (2) Acute hyperkalemia Status: Acute (3) Anemia, chronic renal failure Status: Acute (4) Atrial fibrillation Status: Acute (5) CHF (congestive heart failure) Status: Acute (6) COPD (chronic obstructive pulmonary disease) Status: Acute (7) DDD (degenerative disc disease), lumbosacral Status: Acute (8) Fibrosing dermatitis Status: Acute - Assessment and Plan (Free Text) Plan: dialysis today dietary potassium restriction chronic pain discussed with ER attending on phone- advised to send pt to outpt hd unit for dialysis but she insisted on admitting the pt and dialysing inhouse HD nurse informed orders written pt ok for discharge after HD form renal standpoint
[2017-02-10] MEDS: Oxycodone/Acetaminophen 5/325 mg Tab PO PRN ×2 (13:13→18:17)
--- NOTE | 2017-02-10 13:18 | RAD ---
PROCEDURE: CHEST RADIOGRAPH, 1 VIEW HISTORY: SOB COMPARISON: Comparison chest 10/30/2016. FINDINGS: LUNGS: Moderate pulmonary vascular congestion with bilateral lower lobe alveolar-type infiltrates and bilateral effusions. PLEURA: No pneumothorax or pleural fluid seen. CARDIOVASCULAR: Cardiomegaly. No change bipolar pacemaker. OSSEOUS STRUCTURES: No significant abnormalities. VISUALIZED UPPER ABDOMEN: Normal. OTHER FINDINGS: None. IMPRESSION: Pulmonary vascular congestion with bilateral lower lobe alveolar-type infiltrates and bilateral effusions.
[2017-02-11] MEDS: Oxycodone/Acetaminophen 5/325 mg Tab PO PRN ×3 (00:28→14:13)
--- NOTE | 2017-02-11 16:53 | CP.PCM.HP ---
History of Present Illness - History of Present Illness History of Present Illness: This 67-year-old female with PMHanemia, arthritis, asthma, atrial fibrillation, IHD, CHF, COPD, depression, HTN, hyperlipidemia, migraine, osteoporosis, pancreatitis and ESRD to the ER for complaint of shortness of breath. C/Oshortness of breath for 1 day. Acute in onset, progressive, occurs on exertion as well as on rest, not relieved by medications. Patient can undergo dialysis yesterday because of the holiday. No C/Ochest pain, cough, PND, orthopnea. Past Patient History - Infectious Disease Hx of Infectious Diseases: None - Tetanus Immunizations Tetanus Immunization: Unknown - Past Medical History & Family History Past Medical History?: Yes - Past Social History Smoking Status: Former Smoker - CARDIAC Hx Cardiac Disorders: Yes Hx Atrial Fibrillation: Yes Hx Cardia Arrhythmia: Yes Hx Congestive Heart Failure: Yes (A-fib, CAD) Hx Hypertension: Yes Hx Pacemaker: Yes Hx Peripheral Edema: Yes - PULMONARY Hx Respiratory Disorders: Yes Hx Asthma: Yes Hx Chronic Obstructive Pulmonary Disease (COPD): Yes - NEUROLOGICAL Hx Neurological Disorder: Yes Hx Migraine: Yes - HEENT Hx HEENT Problems: Yes Hx Glaucoma: Yes (rt eye) - RENAL Hx Chronic Kidney Disease: Yes - ENDOCRINE/METABOLIC Hx Endocrine Disorders: No - HEMATOLOGICAL/ONCOLOGICAL Hx Blood Disorders: Yes Hx Anemia: Yes - INTEGUMENTARY Hx Dermatological Problems: Yes Other/Comment: Scleroderma of both arms/both legs - MUSCULOSKELETAL/RHEUMATOLOGICAL Hx Musculoskeletal Disorders: Yes Hx Arthritis: Yes Hx Falls: No Hx Osteoporosis: Yes - GASTROINTESTINAL Hx Gastrointestinal Disorders: Yes Hx Pancreatitis: Yes - GENITOURINARY/GYNECOLOGICAL Hx Genitourinary Disorders: No Hx Sexually Transmitted Disorders: No - PSYCHIATRIC Hx Psychophysiologic Disorder: Yes Hx Depression: Yes Hx Substance Use: No - SURGICAL HISTORY Hx Surgeries: Yes Hx Cholecystectomy: Yes - ANESTHESIA Hx Anesthesia: Yes Hx Anesthesia Reactions: No Hx Malignant Hyperthermia: No Meds Allergies/Adverse Reactions: Allergies Allergy/AdvReac Type Severity Reaction Status Date / Time vancomycin Allergy Severe ITCHING Verified 02/10/17 08:09 budesonide [From Symbicort] Allergy ITCHING Verified 02/10/17 08:09 formoterol [From Symbicort] Allergy ITCHING Verified 02/10/17 08:09 gabapentin Allergy RASH Verified 02/10/17 08:09 Physical Exam - Constitutional Appears: Well - Head Exam Head Exam: ATRAUMATIC, NORMAL INSPECTION, NORMOCEPHALIC - Eye Exam Eye Exam: EOMI, Normal appearance, PERRL Pupil Exam: NORMAL ACCOMODATION, PERRL - ENT Exam ENT Exam: Mucous Membranes Moist, Normal Exam - Neck Exam Neck exam: Positive for: Normal Inspection - Respiratory Exam Respiratory Exam: Decreased Breath Sounds - Cardiovascular Exam Cardiovascular Exam: REGULAR RHYTHM, +S1, +S2 - GI/Abdominal Exam GI & Abdominal Exam: Diminished Bowel Sounds, Soft - Rectal Exam Rectal Exam: Deferred Results - Vital Signs Recent Vital Signs: Last Vital Signs Temp 97.8 F 02/11/17 16:26 Pulse 69 02/11/17 16:26 Resp 20 02/11/17 16:26 BP 113/65 02/11/17 16:26 Pulse Ox 96 02/11/17 16:26 - Labs Result Diagrams: 02/10/17 08:56 02/10/17 08:56
[2017-02-12] MEDS: Oxycodone/Acetaminophen 5/325 mg Tab PO PRN ×3 (06:25→17:27)
--- NOTE | 2017-02-12 11:24 | CP.PCM.PN ---
Subjective - Date & Time of Evaluation Date of Evaluation: 02/12/17 Time of Evaluation: 11:21 - Subjective Subjective: Same dyspnea, c/o more tremors due for dialysis has had poor appetite 'no new complaint otherwise Objective - Vital Signs/Intake and Output Vital Signs (last 24 hours): Temp Pulse Resp BP Pulse Ox 97.4 F L 66 18 137/84 98 02/12/17 08:25 02/12/17 08:25 02/12/17 08:25 02/12/17 08:25 02/12/17 08:25 Intake and Output: 02/12/17 02/12/17 06:59 18:59 Intake Total 240 200 Balance 240 200 - Medications Medications: Current Medications Amlodipine Besylate (Norvasc) 5 mg PO DAILY [facility] Last Admin: 02/12/17 10:08 Dose: Not Given Aspirin (Ecotrin) 81 mg PO DAILY [facility] Last Admin: 02/12/17 10:08 Dose: Not Given Calcium Acetate (Phoslo) 1,334 mg PO TID [facility] Last Admin: 02/12/17 10:07 Dose: Not Given Clopidogrel Bisulfate (Plavix) 75 mg PO DAILY [facility] Last Admin: 02/12/17 10:03 Dose: 75 mg Epoetin Phil (Procrit) 10,000 unit IV TTS [facility] Famotidine (Pepcid) 20 mg PO DAILY [facility] Last Admin: 02/12/17 10:03 Dose: 20 mg Gabapentin (Neurontin) 300 mg PO DAILY [facility] Heparin Sodium (Porcine) (Heparin) 5,000 units SC Q12 [facility] Last Admin: 02/12/17 10:03 Dose: 5,000 units Isosorbide Dinitrate (Isordil) 20 mg PO DAILY [facility] [place] Last Admin: 02/12/17 10:08 Dose: Not Given Loperamide HCl (Imodium) 2 mg PO TID PRN PRN Reason: Diarrhea Last Admin: 02/10/17 17:51 Dose: 2 mg Metoprolol Tartrate (Lopressor) 25 mg PO BID [facility] [place] Last Admin: 02/12/17 10:08 Dose: Not Given Midodrine (Proamatine) 5 mg PO TID [facility] [place] Last Admin: 02/12/17 10:07 Dose: 5 mg Oxycodone/Acetaminophen (Percocet 5/325 Mg Tab) 1 tab PO Q4H PRN PRN Reason: Pain Stop: 02/13/17 12:50 Last Admin: 02/12/17 10:00 Dose: 1 tab Prochlorperazine (Compazine) 10 mg PO BID PRN PRN Reason: Nausea/Vomiting Sevelamer Carbonate (Renvela) 2,400 mg PO TID [facility] Last Admin: 02/12/17 10:07 Dose: Not Given Sucralfate (Carafate Tab) 1 gm PO TID [facility] Last Admin: 02/12/17 10:08 Dose: Not Given - Labs Labs: 02/10/17 08:56 02/10/17 08:56 - Constitutional Appears: No Acute Distress, Chronically Ill - Head Exam Head Exam: ATRAUMATIC, NORMAL INSPECTION - Eye Exam Eye Exam: EOMI, Normal appearance - Neck Exam Neck Exam: Normal Inspection. absent: Tenderness - Respiratory Exam Respiratory Exam: Clear to Ausculation Bilateral, NORMAL BREATHING PATTERN - Cardiovascular Exam Cardiovascular Exam: REGULAR RHYTHM, +S1 - GI/Abdominal Exam GI & Abdominal Exam: Tenderness. absent: Soft - Extremities Exam Extremities Exam: Normal Inspection, Tenderness - Neurological Exam Neurological Exam: Altered, CN II-XII Intact - Skin Skin Exam: Dry, Warm Assessment and Plan (1) ESRD (end stage renal disease) on dialysis Status: Acute (2) Shortness of breath Status: Acute (3) COPD (chronic obstructive pulmonary disease) Status: Acute (4) Chronic congestive heart failure Status: Chronic (5) HTN (hypertension) Status: Chronic (6) Nephrogenic fibrosing dermopathy Status: Chronic - Assessment and Plan (Free Text) Plan: dialysis today possible dx of parkinsons and treatment as per medicine
[2017-02-12] MEDS ORDERED: Epoetin Alfa 10,000 unit/ml Dialysis IV SCH (15:00)
[2017-02-12 15:04] VITALS: RESP 20
[2017-02-12] MEDS ORDERED: Propofol 10 mg/ml Inj (20 ML) ONE (16:36)
[2017-02-12 16:53] VITALS: TEMP 97.4; O2SAT 97
[2017-02-12 17:07] VITALS: BP 94/49; PULSE 66
--- NOTE | 2017-02-12 20:07 | CP.PCM.PN ---
Subjective - Date & Time of Evaluation Date of Evaluation: 02/12/17 Time of Evaluation: 09:20 - Subjective Subjective: clinically same Objective - Vital Signs/Intake and Output Vital Signs (last 24 hours): Temp Pulse Resp BP Pulse Ox 97.4 F L 68 20 107/63 97 02/12/17 16:52 02/12/17 16:52 02/12/17 16:52 02/12/17 16:52 02/12/17 16:52 Intake and Output: 02/12/17 02/13/17 18:59 06:59 Intake Total 200 240 Balance 200 240 - Medications Medications: Current Medications Amlodipine Besylate (Norvasc) 5 mg PO DAILY [facility] Last Admin: 02/12/17 10:08 Dose: Not Given Aspirin (Ecotrin) 81 mg PO DAILY [facility] Last Admin: 02/12/17 10:08 Dose: Not Given Calcium Acetate (Phoslo) 1,334 mg PO TID [facility] Last Admin: 02/12/17 17:21 Dose: 1,334 mg Clopidogrel Bisulfate (Plavix) 75 mg PO DAILY [facility] Last Admin: 02/12/17 10:03 Dose: 75 mg Epoetin Phil (Procrit) 10,000 unit IV MWF [facility] Last Admin: 02/12/17 15:24 Dose: 10,000 unit Famotidine (Pepcid) 20 mg PO DAILY [facility] Last Admin: 02/12/17 10:03 Dose: 20 mg Heparin Sodium (Porcine) (Heparin) 5,000 units SC Q12 [facility] Last Admin: 02/12/17 10:03 Dose: 5,000 units Isosorbide Dinitrate (Isordil) 20 mg PO DAILY [facility] Last Admin: 02/12/17 10:08 Dose: Not Given Loperamide HCl (Imodium) 2 mg PO TID PRN PRN Reason: Diarrhea Last Admin: 02/10/17 17:51 Dose: 2 mg Metoprolol Tartrate (Lopressor) 25 mg PO BID [facility] Last Admin: 02/12/17 17:21 Dose: 25 mg Midodrine (Proamatine) 5 mg PO TID [facility] Last Admin: 02/12/17 17:33 Dose: 5 mg Oxycodone/Acetaminophen (Percocet 5/325 Mg Tab) 1 tab PO Q4H PRN PRN Reason: Pain Stop: 02/13/17 12:50 Last Admin: 02/12/17 17:27 Dose: 1 tab Prochlorperazine (Compazine) 10 mg PO BID PRN PRN Reason: Nausea/Vomiting Sevelamer Carbonate (Renvela) 2,400 mg PO TID [facility] Last Admin: 02/12/17 17:22 Dose: 2,400 mg Sucralfate (Carafate Tab) 1 gm PO TID [facility] Last Admin: 02/12/17 17:22 Dose: 1 gm - Labs Labs: 02/10/17 08:56 02/10/17 08:56 - Constitutional Appears: Well - Head Exam Head Exam: ATRAUMATIC, NORMAL INSPECTION, NORMOCEPHALIC - Eye Exam Eye Exam: EOMI, Normal appearance, PERRL Pupil Exam: NORMAL ACCOMODATION, PERRL - ENT Exam ENT Exam: Mucous Membranes Moist, Normal Exam - Neck Exam Neck Exam: Full ROM, Normal Inspection. absent: Lymphadenopathy - Respiratory Exam Respiratory Exam: Clear to Ausculation Bilateral, NORMAL BREATHING PATTERN - Cardiovascular Exam Cardiovascular Exam: REGULAR RHYTHM, +S1, +S2. absent: Murmur - GI/Abdominal Exam GI & Abdominal Exam: Soft, Normal Bowel Sounds. absent: Tenderness - Rectal Exam Rectal Exam: Deferred - Extremities Exam Extremities Exam: Full ROM, Normal Capillary Refill, Normal Inspection. absent : Joint Swelling, Pedal Edema - Back Exam Back Exam: NORMAL INSPECTION Assessment and Plan (1) ACS (acute coronary syndrome) Status: Acute (2) Abdominal pain Status: Acute (3) Acute hyperkalemia Status: Acute (4) Anemia Status: Acute (5) Anemia, chronic renal failure Status: Acute (6) At high risk for hyperkalemia Status: Acute (7) Atrial fibrillation Status: Acute (8) Atrial fibrillation with RVR Status: Acute (9) Bradycardia Status: Acute (10) C. difficile colitis Status: Acute (11) CHF (congestive heart failure) Status: Acute (12) CHF (congestive heart failure) Status: Acute (13) COPD (chronic obstructive pulmonary disease) Status: Acute (14) Chest pain Status: Acute (15) Chest pain Status: Acute (16) Chest pain at rest Status: Acute (17) Chills (without fever) Status: Acute (18) Chronic pain Status: Acute (19) Chronic pain Status: Acute (20) Coagulopathy Status: Acute (21) Constipation Status: Acute (22) DDD (degenerative disc disease), lumbosacral Status: Acute (23) Degenerative disc disease, lumbar Status: Acute (24) Dyspnea Status: Acute (25) ESRD (end stage renal disease) Status: Acute (26) ESRD (end stage renal disease) on dialysis Status: Acute (27) ESRD needing dialysis Status: Acute (28) ESRD on hemodialysis Status: Acute (29) ESRD on hemodialysis Status: Acute (30) Elevated brain natriuretic peptide (BNP) level Status: Acute (31) Elevated lipase Status: Acute (32) Elevated serum globulin level Status: Acute (33) Exacerbation of asthma Status: Acute (34) Fever Status: Acute (35) Fibrosing dermatitis Status: Acute (36) Fluid overload Status: Acute (37) GI bleed Status: Acute (38) Gastroenteritis Status: Acute (39) Gastrointestinal hemorrhage Status: Acute (40) Headache Status: Acute (41) Hyperkalemia Status: Acute (42) Hyperkalemia, diminished renal excretion Status: Acute (43) Hypertensive CKD, ESRD on dialysis Status: Acute (44) Intractable pain Status: Acute (45) Kidney transplant failure Status: Acute (46) Labile blood pressure Status: Acute (47) Leg pain Status: Acute (48) Narcotic withdrawal Status: Acute (49) Pacemaker Status: Acute (50) Pancytopenia Status: Acute (51) Paroxysmal atrial fibrillation Status: Acute (52) Pleural effusion Status: Acute (53) Pneumonia Status: Acute (54) Prophylactic measure Status: Acute (55) Pulmonary edema Status: Acute (56) Rectal bleeding Status: Acute (57) Rectal pain Status: Acute (58) Renal failure Status: Acute (59) Respiratory failure Status: Acute (60) Shortness of breath Status: Acute (61) Thrombocytopenia Status: Acute (62) Uncontrolled atrial fibrillation Status: Acute (63) Upper respiratory infection Status: Acute (64) Weakness Status: Acute (65) Back pain Status: Chronic (66) Benign hypertension with ESRD (end-stage renal disease) Status: Chronic (67) Chronic congestive heart failure Status: Chronic (68) Congestive heart failure Status: Chronic (69) ESRD (end stage renal disease) Status: Chronic (70) ESRD due to benign hypertension Status: Chronic (71) ESRD on dialysis Status: Chronic (72) End stage renal failure on dialysis Status: Chronic (73) HTN (hypertension) Status: Chronic (74) Nephrogenic fibrosing dermopathy Status: Chronic (75) Scleroderma Status: Chronic (76) Sclerosis of the skin Status: Chronic - Assessment and Plan (Free Text) Plan: Patient examined. Patient continues to have dyspnoea. Continue aspirin and clopidogrel. Continue antihypertensive medications. Continue dialysis. Continue supportive care.
== END 2017-02-12 20:05 | disposition home or self-care (01) | DRG 291 ==
LOC: C.ER 08:00 → UNDOADMIN 09:22 → C.9E 09:22 → C.5S 14:26 → C.9E 14:26 → C.5S 15:42
PROVIDERS: ADMIT Internal Medicine Nephrology; ATTEND Internal Medicine Nephrology
PROC: 5A1D70Z Performance of Urinary Filtration, Intermittent, Less than 6 Hours Per Day (ICD-10-PCS; principal; 2017-02-10)
DX: I13.2 Hypertensive heart and chronic kidney disease with heart failure and with stage 5 chronic kidney disease, or end stage renal disease (principal); N18.6 End stage renal disease; I48.91 Unspecified atrial fibrillation; F32.9 Major depressive disorder, single episode, unspecified; G43.909 Migraine, unspecified, not intractable, without status migrainosus; E78.5 Hyperlipidemia, unspecified; H40.9 Unspecified glaucoma; I50.9 Heart failure, unspecified; J44.9 Chronic obstructive pulmonary disease, unspecified; I25.10 Atherosclerotic heart disease of native coronary artery without angina pectoris; M81.0 Age-related osteoporosis without current pathological fracture; L94.0 Localized scleroderma [morphea]; M19.90 Unspecified osteoarthritis, unspecified site; L90.8 Other atrophic disorders of skin; Z87.891 Personal history of nicotine dependence; Z90.49 Acquired absence of other specified parts of digestive tract; Z95.0 Presence of cardiac pacemaker; Z99.2 Dependence on renal dialysis

== ENCOUNTER 2017-03-22 09:02 | Emergency (ER) | payer MEDICARE, OTHER ==
[2017-03-22 09:02] VITALS: PULSE 146; BMI 24.5
[2017-03-22 09:24] VITALS: TEMP 98.2
[2017-03-22] MEDS ORDERED: Phenylephrine 1% Nasal Spray (15 ml) NAS STA (09:49)
[2017-03-22] MEDS ORDERED: Phenylephrine 1% Nasal Spray (15 ml) ONE (09:50)
--- NOTE | 2017-03-22 10:36 | C.PDOC ---
History Of Present Illness 67-year-old female, PMHx includes ESRD (on Dialysis Mon, Sun, Sun) on Heparin, presents to the emergency department, brought in by ambulance with complaints of nose bleed that started this morning, from right nostril. Patient had dialysis this morning, but was unable to go. Denies nausea/vomiting, fall/ injuries, numbness/weakness, chest pain, or SOB. No other complaints at this time. Time Seen by Provider: 03/22/17 09:22 Chief Complaint (Nursing): ENT Problem History Per: Patient, EMS History/Exam Limitations: no limitations Onset/Duration Of Symptoms: Hrs Current Symptoms Are (Timing): Still Present Recent travel outside of the [place]: No Past Medical History Reviewed: Historical Data, Nursing Documentation, Vital Signs Vital Signs: Last Vital Signs Temp 98.2 F 03/22/17 09:18 Pulse 73 03/22/17 15:09 Resp 18 03/22/17 15:09 BP 139/73 03/22/17 15:09 Pulse Ox 95 03/22/17 18:06 - Medical History PMH: Anemia, Arthritis, Asthma, Atrial Fibrillation, CAD, Cardia Arrhythmia, CHF (A-fib, CAD), COPD, Depression, HTN, Hyperlipidemia, Migraine, Osteoporosis , Pancreatitis, Peripheral Edema, End Stage Renal Disease, Chronic Kidney Disease Surgical History: Cholecystectomy, Endoscopy, Pacemaker - [facility] Procedures (02/10/17) ANGIOPLASTY OF OTHER NON-CORONARY VESSEL(S) (12/04/13) DIALYSIS ARTERIOVENOSTOM (12/04/13) DRAINAGE OF LEFT PLEURAL CAVITY, PERCUTANEOUS APPROACH (09/01/16) FLEXIBLE SIGMOIDOSCOPY (07/30/14) FLUOROSCOPY OF LEFT HEART USING LOW OSMOLAR CONTRAST (02/01/16) FLUOROSCOPY OF MULT COR ART USING L OSM CONTRAST (02/01/16) HEMODIALYSIS (09/30/14) INSEJ [id number] PERIPHERAL NON-CORONARY VES STENT(S) (12/04/13) INSERTION OF ONE VASCULAR STENT (12/04/13) MEASURE OF CARDIAC SAMPL & PRESSURE, L HEART, PERC APPROACH (02/01/16) OTHER ENDOSCOPY OF SM INTEST (07/30/14) PACKED CELL TRANSFUSION (09/30/14) PERFORMANCE OF URINARY FILTRATION, MULTIPLE (10/16/16) PERFORMANCE OF URINARY FILTRATION, SINGLE (09/28/16) PROCEDURE ON SINGLE VESSEL (12/04/13) RESPIRATORY VENTILATION, GREATER THAN 96 CONSECUTIVE HOURS (09/01/16) TRANSFUSE NONAUT PLATELETS IN PERIPH VEIN, PERC (09/01/16) VASC PROC REVISION NEC (12/04/13) VENOUS CATHETERIZATION FOR RENAL DIALYSIS (12/04/13) Family History: States: Unknown Family Hx - Social History Hx Tobacco Use: No Hx Alcohol Use: No Hx Substance Use: No - Immunization History Hx Tetanus Toxoid Vaccination: (unk) Hx Influenza Vaccination: Yes Hx Pneumococcal Vaccination: (unk) Review Of Systems Except As Marked, All Systems Reviewed And Found Negative. Constitutional: Negative for: Fever, Chills ENT: Positive for: Nose Congestion, Other (epistaxis). Negative for: Nose Pain Cardiovascular: Negative for: Chest Pain, Palpitations, Orthopnea, Edema Gastrointestinal: Negative for: Nausea, Vomiting Musculoskeletal: Negative for: Back Pain Neurological: Negative for: Weakness, Numbness, Headache, Dizziness Physical Exam - Physical Exam Appears: Non-toxic, No Acute Distress Skin: Warm, Dry, No Rash, Other (scleroderma) Head: Atraumatic, Normacephalic Eye(s): bilateral: Normal Inspection, PERRL, EOMI Nose: Normal, Epistaxis (small active bleeding to the right nare RIGHT NARE), No Deformity, No Tenderness, No Septal Hematoma Oral Mucosa: Moist Lips: Normal Appearing Throat: Other (No blood visualized in posterior oropharynx) Neck: Normal ROM Chest: Symmetrical, No Tenderness Cardiovascular: Rhythm Regular, No Friction Rub, No Murmur Respiratory: No Accessory Muscle Use, Rales (fine) Gastrointestinal/Abdominal: Soft, No Tenderness Extremity: Normal ROM, No Tenderness, No Swelling Neurological/Psych: Oriented x3, Normal Speech ED Course And Treatment - Laboratory Results Result Diagrams: 03/22/17 10:34 03/22/17 10:34 ECG: Interpreted By Me, Viewed By Me ECG Rhythm: Sinus Rhythm ECG Interpretation: No Changes From Prior (02/10) Rate From EC O2 Sat by Pulse Oximetry: 95 (on O2) Pulse Ox Interpretation: Normal - Radiology CXR: Interpreted by Me, Read By Radiologist CXR Interpretation: Yes: Other (venous congestion which is at baseline, NAD) Medical Decision Making Medical Decision Making: Plan: * EKG * BNP, CMP * CBC, PTT, PT * Chest X-Ray * Mustapha-Synephrine, Saline * Reassess and Disposition Nose was cleansed with sterile saline. Neosynephrine was applied in the nose by me, with good hemostasis. Patient was observed for any bleeding and there has been no other bleeding. The case was discussed with Dr. Eng (Photonics Engineer) who states that the patient can be discharged home and arranged for dialysis tomorrow. I called the [facility] who state they placed the patient for an appointment for dialysis tomorrow at 09:45. Disposition - Disposition Referrals: Carlos Eng MD [Staff Provider] - Disposition: HOME/ ROUTINE Disposition Time: 13:55 Condition: STABLE Additional Instructions: GO TO DIALYSIS TOMORROW AT 0945 WITHOUT FAIL. RETURN IF WORSENED. Instructions: Nosebleed (ED) Forms: [facility] ([employer]) - POA Present On Arrival: None - Clinical Impression Clinical Impression: Epistaxis, Missed dialysis - Scribe Statement The provider has reviewed the documentation as recorded by the Scribe (Justen Sykes) All medical record entries made by the Scribe were at my direction and personally dictated by me. I have reviewed the chart and agree that the record accurately reflects my personal performance of the history, physical exam, medical decision making, and the department course for this patient. I have also personally directed, reviewed, and agree with the discharge instructions and disposition.
[2017-03-22 10:39] LABS: BASO % 0.6 % (0.0-2.0); EOS # 0.1 K/uL (0.0-0.7); EOS % 2.3 % (0.0-4.0); HEMOGLOBIN 10.5 g/dL (11.0-16.0); LYMPH # 0.7 K/uL (1.0-4.3); LYMPH % 19.8 % (20.0-40.0); MEAN CORPUSCULAR HEMOGLOBIN 32.9 pg (27.0-31.0); MEAN CORPUSCULAR HGB CONC 32.2 g/dL (33.0-37.0); MEAN PLATELET VOLUME 8.3 fL (7.2-11.7); MONO # 0.4 K/uL (0.0-0.8); MONO % 12.1 % (0.0-10.0); NEUT # 2.3 K/uL (1.8-7.0); NEUT % 65.2 % (50.0-75.0); NRBC % 0.1 % (0.0-2.0); RBC 3.18 Mil/uL (3.80-5.20); RED CELL DISTRIBUTION WIDTH 16.4 % (11.5-14.5); WHITE BLOOD COUNT 3.5 K/uL (4.8-10.8)
--- NOTE | 2017-03-22 10:45 | RAD ---
PROCEDURE: CHEST RADIOGRAPH, 1 VIEW HISTORY: SOB COMPARISON: 02/10/2017Portable chest x-ray. CT chest 09/05/2016 noted FINDINGS: LUNGS: Mild moderate left basal consolidation. Minimal right basal consolidation. Coalescent airspace opacities and diffuse interstitial pulmonary edema also suspect. Bibasilar consolidations compatible with bilateral pleural effusions/and compressive atelectatic changes. A concomitant infiltrate here lung base not excluded PLEURA: Bilateral pleural effusions left larger than right. The size of the pleural effusions is less than the 02/10/2017 study. No pneumothorax CARDIOVASCULAR: Cardiomegaly and diffuse pulmonary venous congestion Position/ configuration of pacemaker OSSEOUS STRUCTURES: Bilateral shoulder arthrosis VISUALIZED UPPER ABDOMEN: Normal. OTHER FINDINGS: None. IMPRESSION: Cardiomegaly pulmonary venous congestion with follow-up pleural effusion and compatible with CHF. Waxing and waning CHF status inferred The bibasilar consolidations and compatible with compressive atelectasis associated with pleural effusions. Concomitant patchy infiltrates here left greater than right not excluded
[2017-03-22 10:48] LABS: MEAN CELL VOLUME 102.4 fL (81.0-99.0)
[2017-03-22 10:58] LABS: ALBUMIN 3.9 g/dL (3.5-5.0); CALCIUM 7.1 mg/dl (8.6-10.4)
[2017-03-22 11:12] LABS: ALB/GLOB RATIO 0.8 (1.0-2.1)
[2017-03-22] MEDS ORDERED: Oxycodone/Acetaminophen 5/325 mg Tab PO ONE (11:40)
[2017-03-22] MEDS ORDERED: Oxycodone/Acetaminophen 5/325 mg Tab ONE (11:43)
[2017-03-22 13:55] VITALS: O2SAT 95
[2017-03-22 15:12] VITALS: BP 139/73; PULSE 73; RESP 18
--- NOTE | 2017-03-23 23:33 | CARD ---
APPROVED REPORT EKG Measurement Heart [id number] <Conclusion> Normal sinus rhythm Right bundle branch block T wave abnormality, consider inferior ischemia Abnormal ECG
== END 2017-03-22 15:12 | disposition home or self-care (01) ==
LOC: C.ER 09:02
DX: R04.0 Epistaxis (principal)

== ENCOUNTER 2017-10-11 13:46 | Inpatient (IN) | payer MEDICARE, OTHER ==
[2017-10-11 13:47] VITALS: PULSE 146; BMI 24.5
--- NOTE | 2017-10-11 14:33 | RAD ---
Date of service: 10/11/2017 HISTORY: sob COMPARISON: Chest radiograph dated 06/20/2017. FINDINGS: LUNGS: Pulmonary vascular congestion. PLEURA: Mall bilateral pleural effusions. No appreciable pneumothorax. CARDIOVASCULAR: Left subclavian access pacemaker redemonstrated. Atherosclerotic aortic calcifications. Cardiomediastinal silhouette stably enlarged. OSSEOUS STRUCTURES: Unchanged. VISUALIZED UPPER ABDOMEN: Right upper quadrant surgical clips redemonstrated. OTHER FINDINGS: None. IMPRESSION: Small bilateral pleural effusions.
--- NOTE | 2017-10-11 14:42 | C.PDOC ---
History Of Present Illness 67 y/o female with history of ESRD and Scleroderma brought to ED by EMS sent by clinic after patient had 30min left of dialysis, became hypotensive and felt sob. As per EMS patient given 750mL of saline. At ED patient denies chest pain, nausea, vomiting, leg swelling or any other complaints at this time. Time Seen by Provider: 10/11/17 14:07 Chief Complaint (Nursing): Shortness Of Breath History Per: Patient History/Exam Limitations: no limitations Onset/Duration Of Symptoms: Hrs Current Symptoms Are (Timing): Still Present Past Medical History Reviewed: Historical Data, Nursing Documentation, Vital Signs Vital Signs: Last Vital Signs Temp 97.4 F L 10/16/17 12:10 Pulse 80 10/16/17 12:10 Resp 16 10/16/17 12:10 BP 129/61 10/16/17 12:10 Pulse Ox 95 10/17/17 12:19 - Medical History PMH: Anemia, Arthritis, Asthma, Atrial Fibrillation, CAD, Cardia Arrhythmia, CHF (A-fib, CAD), COPD, Depression, HTN, Hyperlipidemia, Kidney Stones, Migraine , Osteoporosis, Pancreatitis, Peripheral Edema, End Stage Renal Disease, Chronic Kidney Disease Surgical History: Cholecystectomy, Endoscopy, Pacemaker - [facility] Procedures (06/20/17) ANGIOPLASTY OF OTHER NON-CORONARY VESSEL(S) (12/04/13) DIALYSIS ARTERIOVENOSTOM (12/04/13) DRAINAGE OF LEFT PLEURAL CAVITY, PERCUTANEOUS APPROACH (09/01/16) FLEXIBLE SIGMOIDOSCOPY (07/30/14) FLUOROSCOPY OF LEFT HEART USING LOW OSMOLAR CONTRAST (02/01/16) FLUOROSCOPY OF MULT COR ART USING L OSM CONTRAST (02/01/16) HEMODIALYSIS (09/30/14) INSEJ [id number] PERIPHERAL NON-CORONARY VES STENT(S) (12/04/13) INSERTION OF ONE VASCULAR STENT (12/04/13) MEASURE OF CARDIAC SAMPL & PRESSURE, L HEART, PERC APPROACH (02/01/16) OTHER ENDOSCOPY OF SM INTEST (07/30/14) PACKED CELL TRANSFUSION (09/30/14) PERFORMANCE OF URINARY FILTRATION, MULTIPLE (10/16/16) PERFORMANCE OF URINARY FILTRATION, SINGLE (09/28/16) PROCEDURE ON SINGLE VESSEL (12/04/13) RESPIRATORY VENTILATION, GREATER THAN 96 CONSECUTIVE HOURS (09/01/16) TRANSFUSE NONAUT PLATELETS IN PERIPH VEIN, PERC (09/01/16) VASC PROC REVISION NEC (12/04/13) VENOUS CATHETERIZATION FOR RENAL DIALYSIS (12/04/13) Family History: States: No Known Family Hx - Social History Hx Tobacco Use: No Hx Alcohol Use: No Hx Substance Use: No - Immunization History Hx Tetanus Toxoid Vaccination: Yes Hx Influenza Vaccination: Yes Hx Pneumococcal Vaccination: Yes Review Of Systems Constitutional: Negative for: Fever, Chills Cardiovascular: Negative for: Chest Pain Respiratory: Positive for: Shortness of Breath. Negative for: Cough Gastrointestinal: Negative for: Nausea, Vomiting Skin: Negative for: Rash Physical Exam - Physical Exam Appears: Non-toxic, No Acute Distress Skin: Warm, Dry, Other (skin is thick and hard diffusely) Head: Atraumatic, Normacephalic Eye(s): bilateral: Normal Inspection Oral Mucosa: Moist Neck: Normal ROM, Supple Cardiovascular: Rhythm Regular, Other (Tachycardic) Respiratory: Normal Breath Sounds, No Rales, No Rhonchi, No Wheezing Extremity: No Pedal Edema, Capillary Refill (<2 seconds), No Deformity, Swelling (to lower extremities bilaterally), Other (AV fistula on right upper arm) Neurological/Psych: Oriented x3, Normal Speech ED Course And Treatment - Laboratory Results Result Diagrams: 10/16/17 09:47 10/16/17 09:47 O2 Sat by Pulse Oximetry: 95 (RA) Pulse Ox Interpretation: Normal Disposition Discussed With : Porsha Newell Doctor Will See Patient In The: Hospital - Disposition Disposition: HOSPITALIZED Disposition Time: 16:07 Condition: SERIOUS - Clinical Impression Clinical Impression: End stage renal failure on dialysis, Hypotension, Atrial fibrillation - PA / MOLD COOLER / Resident Statement MD/DO has reviewed & agrees with the documentation as recorded. - Scribe Statement The provider has reviewed the documentation as recorded by the Erick Jaffe All medical record entries made by the Erick were at my direction and personally dictated by me. I have reviewed the chart and agree that the record accurately reflects my personal performance of the history, physical exam, medical decision making, and the department course for this patient. I have also personally directed, reviewed, and agree with the discharge instructions and disposition.
[2017-10-11 14:49] LABS: BASO % 0.4 % (0.0-2.0); EOS % 0.5 % (0.0-4.0); HEMOGLOBIN 10.6 g/dL (11.0-16.0); LYMPH # 0.5 K/uL (1.0-4.3); LYMPH % 9.7 % (20.0-40.0); MEAN CELL VOLUME 99.8 fL (81.0-99.0); MEAN CORPUSCULAR HEMOGLOBIN 32.3 pg (27.0-31.0); MEAN CORPUSCULAR HGB CONC 32.3 g/dL (33.0-37.0); MEAN PLATELET VOLUME 8.4 fL (7.2-11.7); MONO # 0.4 K/uL (0.0-0.8); MONO % 7.8 % (0.0-10.0); NEUT # 4.5 K/uL (1.8-7.0); NEUT % 81.6 % (50.0-75.0); RED CELL DISTRIBUTION WIDTH 15.1 % (11.5-14.5)
[2017-10-11 14:58] LABS: PLATELET COUNT 109 K/uL (130-400); WHITE BLOOD COUNT 5.5 K/uL (4.8-10.8)
[2017-10-11 15:06] LABS: ALB/GLOB RATIO 0.9 (1.0-2.1); ALBUMIN 4.2 g/dL (3.5-5.0); CALCIUM 7.8 mg/dl (8.6-10.4)
[2017-10-11 15:11] LABS: VENOUS BLOOD GAS BASE EXCESS 9.2 mmol/L (0.0-2.0); VENOUS BLOOD GAS PCO2 66 mmHg (40-60); VENOUS BLOOD GAS PO2 27 mm/Hg (30-55); VENOUS BLOOD PH 7.36 (7.32-7.43)
[2017-10-11 15:17] LABS: TROPONIN I 0.015 ng/mL (0.00-0.120)
[2017-10-11 15:25] LABS: LYMPHOCYTE 9 % (20-40); MONOCYTE 4 % (0-10); NEUTROPHIL 87 % (50-75); TOTAL CELLS COUNTED 100
[2017-10-11 15:26] LABS: ANISOCYTOSIS SLIGHT; HYPOCHROMIC SLIGHT; PLATELET ESTIMATE SLIGHTLY DECREASED (NORMAL); POLYCHROMIC SLIGHT
--- NOTE | 2017-10-11 17:05 | CP.PCM.HP ---
Past Patient History - Infectious Disease Hx of Infectious Diseases: None - Tetanus Immunizations Tetanus Immunization: Unknown - Past Medical History & Family History Past Medical History?: Yes - Past Social History Smoking Status: Never Smoked - CARDIAC Hx Atrial Fibrillation: Yes Hx Cardia Arrhythmia: Yes Hx Congestive Heart Failure: Yes (A-fib, CAD) Hx Hypertension: Yes Hx Pacemaker: Yes Hx Peripheral Edema: Yes - PULMONARY Hx Asthma: Yes Hx Chronic Obstructive Pulmonary Disease (COPD): Yes - NEUROLOGICAL Hx Migraine: Yes - HEENT Hx HEENT Problems: Yes Hx Glaucoma: Yes (rt eye) - RENAL Hx Chronic Kidney Disease: Yes Hx Kidney Stones: Yes - ENDOCRINE/METABOLIC Hx Endocrine Disorders: No - HEMATOLOGICAL/ONCOLOGICAL Hx Anemia: Yes - INTEGUMENTARY Hx Dermatological Problems: Yes Other/Comment: Scleroderma of both arms/both legs - MUSCULOSKELETAL/RHEUMATOLOGICAL Hx Arthritis: Yes Hx Osteoporosis: Yes - GASTROINTESTINAL Hx Pancreatitis: Yes - GENITOURINARY/GYNECOLOGICAL Hx Sexually Transmitted Disorders: No - PSYCHIATRIC Hx Depression: Yes Hx Substance Use: No - SURGICAL HISTORY Hx Cholecystectomy: Yes - ANESTHESIA Hx Anesthesia: Yes Hx Anesthesia Reactions: No Hx Malignant Hyperthermia: No Meds Allergies/Adverse Reactions: Allergies Allergy/AdvReac Type Severity Reaction Status Date / Time vancomycin Allergy Severe ITCHING Verified 03/22/17 09:23 azithromycin Allergy ITCHING Verified 06/21/17 09:55 budesonide [From Symbicort] Allergy ITCHING Verified 03/22/17 09:23 formoterol [From Symbicort] Allergy ITCHING Verified 03/22/17 09:23 gabapentin Allergy RASH Verified 03/22/17 09:23 Physical Exam - Constitutional Appears: Well - Head Exam Head Exam: ATRAUMATIC, NORMAL INSPECTION, NORMOCEPHALIC - Eye Exam Eye Exam: EOMI, Normal appearance, PERRL Pupil Exam: NORMAL ACCOMODATION, PERRL - ENT Exam ENT Exam: Mucous Membranes Moist, Normal Exam - Neck Exam Neck exam: Positive for: Normal Inspection - Respiratory Exam Respiratory Exam: Decreased Breath Sounds - Cardiovascular Exam Cardiovascular Exam: REGULAR RHYTHM, +S1, +S2 - GI/Abdominal Exam GI & Abdominal Exam: Diminished Bowel Sounds, Soft - Rectal Exam Rectal Exam: Deferred Results - Vital Signs Recent Vital Signs: Last Vital Signs Temp 99.0 F 10/11/17 15:29 Pulse 99 H 10/11/17 15:29 Resp 18 10/11/17 15:29 BP 91/58 L 10/11/17 15:29 Pulse Ox 95 10/11/17 16:09 - Labs Result Diagrams: 10/11/17 14:46 10/11/17 14:46 Labs: Laboratory Results - last 24 hr 10/11/17 10/11/17 10/11/17 14:46 14:46 15:08 WBC 5.5 D RBC 3.30 L Hgb 10.6 L Hct 32.9 L MCV 99.8 H MCH 32.3 H MCHC 32.3 L RDW 15.1 H Plt Count 109 L MPV 8.4 Neut % (Auto) 81.6 H Lymph % (Auto) 9.7 L Tompkins % (Auto) 7.8 Eos % (Auto) 0.5 Baso % (Auto) 0.4 Neut # (Auto) 4.5 Lymph # (Auto) 0.5 L Tompkins # (Auto) 0.4 Eos # (Auto) 0.0 Baso # (Auto) 0.0 Neutrophils % (Manual) 87 H Lymphocytes % (Manual) 9 L Monocytes % (Manual) 4 Platelet Estimate Slightly decreased L Polychromasia Slight Hypochromasia (manual) Slight Anisocytosis (manual) Slight pO2 27 L VBG pH 7.36 VBG pCO2 66 H* VBG HCO3 30.7 VBG Total CO2 39.3 H VBG O2 Sat (Calc) 59.1 VBG Base Excess 9.2 H VBG Potassium 3.6 Glucose 93 Lactate 1.3 Crit Value Called To Dr spencer Crit Value Called By Guilherme casarez Crit Value Read Back Y Blood Gas Notified Time 1511 Sodium 141 141.0 Potassium 4.4 Chloride 94 L 99.0 Carbon Dioxide 35 H Anion Gap 17 BUN 30 H Creatinine 3.0 H Est GFR ( Amer) 19 Est GFR (Non-Af Amer) 16 Random Glucose 99 Calcium 7.8 L Total Bilirubin 1.2 AST 35 ALT 17 Alkaline Phosphatase 313 H D Troponin I 0.0150 Total Protein 8.8 H Albumin 4.2 Globulin 4.7 H Albumin/Globulin Ratio 0.9 L Venous Blood Potassium 3.6
[2017-10-12] MEDS ORDERED: Oxycodone/Acetaminophen 5/325 mg Tab PO STA (05:29)
--- NOTE | 2017-10-12 07:10 | CP.PCM.PN ---
Subjective - Date & Time of Evaluation Date of Evaluation: 10/12/17 Time of Evaluation: 07:09 - Subjective Subjective: Progress Note for Carina Jiménezel's Service Patient seen and examined at bedside. Per nursing no acute events occurred overnight. Patient still reports some shortness of breath. Patient denies any chest pain, fevers, chills, nausea, vomiting, lightheadedness, dizziness, changes in vision, abdominal pain, or any other complaints. 67 year old female with a past medical history of scleroderma and ESRD who was admitted to the hospital after becoming hypotensive during dialysis and reporting shortness of breath. Patient was subsequently brought in by EMS. Past medical history:ESRD, arrhythmia, hypertension, copd, Surgical history: kidney transplant (10 years ago), s/p pacemaker Allergies: Vancomycin, azithromycin, budesonide, formoterol, gabapentin Social history:Denies smoking, alcohol, and drug use. Objective - Vital Signs/Intake and Output Vital Signs (last 24 hours): Temp Pulse Resp BP Pulse Ox 98 F 81 20 130/86 100 10/12/17 04:00 10/12/17 04:00 10/12/17 04:00 10/12/17 04:00 10/12/17 04:00 - Medications Medications: Current Medications Amlodipine Besylate (Norvasc) 5 mg PO DAILY [facility] Aspirin (Aspirin) 325 mg PO DAILY [facility] Calcium Acetate (Phoslo) 1,334 mg PO TID [facility] Last Admin: 10/11/17 19:08 Dose: 1,334 mg Clopidogrel Bisulfate (Plavix) 75 mg PO DAILY [facility] Famotidine (Pepcid) 20 mg PO DAILY [facility] Gabapentin (Neurontin) 300 mg PO DAILY [facility] Isosorbide Dinitrate (Isordil) 20 mg PO DAILY [facility] Loperamide HCl (Imodium) 2 mg PO TID PRN PRN Reason: Diarrhea Metoprolol Tartrate (Lopressor) 25 mg PO BID [facility] Last Admin: 10/11/17 19:03 Dose: Not Given Sevelamer Carbonate (Renvela) 2,400 mg PO TID [facility] Last Admin: 10/11/17 19:08 Dose: 2,400 mg Sucralfate (Carafate Tab) 1 gm PO TID [facility] Last Admin: 10/11/17 19:08 Dose: 1 gm - Labs Labs: 10/11/17 14:46 10/11/17 14:46 - Head Exam Head Exam: ATRAUMATIC, NORMAL INSPECTION, NORMOCEPHALIC - Eye Exam Eye Exam: EOMI, Normal appearance, PERRL Pupil Exam: NORMAL ACCOMODATION - ENT Exam ENT Exam: Mucous Membranes Moist, Normal Oropharynx - Respiratory Exam Respiratory Exam: Clear to Ausculation Bilateral, NORMAL BREATHING PATTERN. absent: Chest Wall Tenderness, Prolonged Expiratory Phase - Cardiovascular Exam Cardiovascular Exam: REGULAR RHYTHM, +S1, +S2 - GI/Abdominal Exam GI & Abdominal Exam: Soft, Normal Bowel Sounds - Extremities Exam Extremities Exam: Full ROM, Normal Inspection. absent: Joint Swelling, Pedal Edema Additional comments: Right avf in place. Palpable thrill appreciated - Neurological Exam Neurological Exam: Alert, Awake, CN II-XII Intact, Oriented x3 - Psychiatric Exam Psychiatric exam: Normal Affect, Normal Mood - Skin Skin Exam: Dry, Intact Additional comments: Skin is tight, but improving on physical exam. Assessment and Plan - Assessment and Plan (Free Text) Assessment: 67 year old female with a past medical history of atrial fibrillation, ESRD, Hypertension, and copd who was admitted for atrial fibrillation and shortness of breath. Plan: 1.Shortness of breath -CXR: showed small bilateral pleural effusions -EKG: Atrial fibrillation with RVR, right bundle branch block, T wave abnormality -Blood cultures ordered .Will f/u with results. 2. history of hypertension -Norvasc 5mg PO Daily -Metoprolol 25mg PO BID -Controlled. Will continue to monitor. 3. history of End stage renal disease -Normally TTS -Phoslo 1334 mg PO TID -Renvela 2400mg PO TID -Per Nephrology, Patient will receive one extra session of Hemodialysis today () and return to TTS after today's session. Repeat CBC, CMP, Phosphorus ordered. -Will f/u with repeat CBC, CMP, Phosphorus 4. history of Atrial fibrillation -Metoprolol 25mg PO BID -Plavix 75 mg PO Daily PPX Heparin 5000 Units SC Q12 Pepcid 20mg PO Daily Plan discussed with Dr. Carina William, PGY-2
--- NOTE | 2017-10-12 12:25 | CARD ---
APPROVED REPORT Date of service: 10/11/2017 EKG Measurement Heart [id number] <Conclusion> Atrial fibrillation with rapid ventricular response Right bundle branch block T wave abnormality, consider inferior ischemia Abnormal ECG
[2017-10-12] MEDS: Oxycodone/Acetaminophen 5/325 mg Tab PO PRN ×2 (13:16→22:55)
--- NOTE | 2017-10-12 13:47 | CP.PCM.CON ---
History of Present Illness - History of Present Illness History of Present Illness: 67 year old female with a past medical history of nephrosclerosis, ESRD, 2 failed renal transplants, severe secondary hyperparathyroidism, DDD, COPD, CMP, nephrogenic fibrosing dermatitis who was admitted to the hospital after becoming hypotensive during dialysis and reporting shortness of breath. Patient was subsequently brought in by EMS. Past medical history:ESRD, arrhythmia, hypertension, copd, nephrogenic fibrosing dermatitis, CMP, DDD, sec HPT Surgical history: 2kidney transplant (10 years ago), s/p pacemaker Allergies: Vancomycin, azithromycin, budesonide, formoterol, gabapentin Social history:Denies smoking, alcohol, and drug use. FH- no CKD Review of Systems - Constitutional Constitutional: Fatigue, Weakness - EENT Eyes: Blurred Vision Ears: absent: As Per HPI, Decreased Hearing, Ear Discharge, Ear Pain, Tinnitus, Abnormal Hearing, Disequilibrium, Dizziness, Other Nose/Mouth/Throat: absent: As Per HPI, Epistaxis, Nasal Congestion, Nasal Discharge, Nasal Obstruction, Nasal Trauma, Nose Pain, Post Nasal Drip, Sinus Pain, Sinus Pressure, Bleeding Gums, Change in Voice, Dental Pain, Dry Mouth, Dysphagia, Halitosis, Hoarsness, Lip Swelling, Mouth Lesions, Mouth Pain, Odynophagia, Sore Throat, Throat Swelling, Tongue Swelling, Facial Pain, Neck Pain, Neck Mass, Other - Cardiovascular Cardiovascular: Chest Pain, Dyspnea on Exertion - Respiratory Respiratory: Dyspnea on Exertion - Gastrointestinal Gastrointestinal: Nausea - Genitourinary Genitourinary: As Per HPI - Musculoskeletal Musculoskeletal: Muscle Cramps, Muscle Weakness, Myalgias - Integumentary Integumentary: Dry Skin, Non-Healing Lesions - Neurological Neurological: Weakness Past Patient History - Infectious Disease Hx of Infectious Diseases: None - Tetanus Immunizations Tetanus Immunization: Unknown - Past Medical History & Family History Past Medical History?: Yes Past Family History: Reviewed and not pertinent - Past Social History Smoking Status: Never Smoked Chewing Tobacco Use: No Cigar Use: No Alcohol: None Drugs: Denies Home Situation {Lives}: With Family - CARDIAC Hx Atrial Fibrillation: Yes Hx Cardia Arrhythmia: Yes Hx Congestive Heart Failure: Yes (A-fib, CAD) Hx Hypertension: Yes Hx Pacemaker: Yes Hx Peripheral Edema: Yes - PULMONARY Hx Asthma: Yes Hx Chronic Obstructive Pulmonary Disease (COPD): Yes - NEUROLOGICAL Hx Migraine: Yes - HEENT Hx HEENT Problems: Yes Hx Glaucoma: Yes (rt eye) - RENAL Hx Chronic Kidney Disease: Yes Hx Kidney Stones: Yes - ENDOCRINE/METABOLIC Hx Endocrine Disorders: No - HEMATOLOGICAL/ONCOLOGICAL Hx Anemia: Yes - INTEGUMENTARY Hx Dermatological Problems: Yes Other/Comment: Scleroderma of both arms/both legs - MUSCULOSKELETAL/RHEUMATOLOGICAL Hx Arthritis: Yes Hx Osteoporosis: Yes - GASTROINTESTINAL Hx Pancreatitis: Yes - GENITOURINARY/GYNECOLOGICAL Hx Sexually Transmitted Disorders: No - PSYCHIATRIC Hx Depression: Yes Hx Substance Use: No - SURGICAL HISTORY Hx Cholecystectomy: Yes - ANESTHESIA Hx Anesthesia: Yes Hx Anesthesia Reactions: No Hx Malignant Hyperthermia: No Meds Allergies/Adverse Reactions: Allergies Allergy/AdvReac Type Severity Reaction Status Date / Time vancomycin Allergy Severe ITCHING Verified 03/22/17 09:23 azithromycin Allergy ITCHING Verified 06/21/17 09:55 budesonide [From Symbicort] Allergy ITCHING Verified 03/22/17 09:23 formoterol [From Symbicort] Allergy ITCHING Verified 03/22/17 09:23 gabapentin Allergy RASH Verified 03/22/17 09:23 - Medications Medications: Current Medications Amlodipine Besylate (Norvasc) 5 mg PO DAILY [facility] Last Admin: 10/12/17 10:01 Dose: 5 mg Aspirin (Aspirin) 325 mg PO DAILY [facility] Last Admin: 10/12/17 09:56 Dose: 325 mg Calcium Acetate (Phoslo) 1,334 mg PO TID [facility] Last Admin: 10/12/17 13:19 Dose: 1,334 mg Clopidogrel Bisulfate (Plavix) 75 mg PO DAILY [facility] Last Admin: 10/12/17 09:54 Dose: 75 mg Famotidine (Pepcid) 20 mg PO DAILY [facility] Last Admin: 10/12/17 09:55 Dose: 20 mg Gabapentin (Neurontin) 300 mg PO DAILY [facility] Last Admin: 10/12/17 09:55 Dose: Not Given Heparin Sodium (Porcine) (Heparin) 5,000 units SC Q12 [facility] Last Admin: 10/12/17 09:56 Dose: Not Given Isosorbide Dinitrate (Isordil) 20 mg PO DAILY [facility] Last Admin: 10/12/17 10:02 Dose: 20 mg Loperamide HCl (Imodium) 2 mg PO TID PRN PRN Reason: Diarrhea Metoprolol Tartrate (Lopressor) 25 mg PO BID [facility] Last Admin: 10/12/17 09:54 Dose: 25 mg Oxycodone/Acetaminophen (Percocet 5/325 Mg Tab) 1 tab PO Q4H PRN PRN Reason: Pain Stop: 10/15/17 13:03 Last Admin: 10/12/17 13:16 Dose: 1 tab Sevelamer Carbonate (Renvela) 2,400 mg PO TID [facility] Last Admin: 10/12/17 13:19 Dose: 2,400 mg Sucralfate (Carafate Tab) 1 gm PO TID [facility] Last Admin: 10/12/17 13:17 Dose: 1 gm Physical Exam - Constitutional Appears: No Acute Distress, Chronically Ill - Head Exam Head Exam: ATRAUMATIC, NORMAL INSPECTION - Eye Exam Eye Exam: EOMI, Normal appearance - Neck Exam Neck exam: Positive for: Normal Inspection. Negative for: Tenderness - Respiratory Exam Respiratory Exam: Rhonchi, NORMAL BREATHING PATTERN - GI/Abdominal Exam GI & Abdominal Exam: Soft. absent: Tenderness - Extremities Exam Extremities exam: Positive for: pedal edema, tenderness - Neurological Exam Neurological exam: Alert, CN II-XII Intact - Skin Skin Exam: Mottled, Rash, Warm Results - Vital Signs Recent Vital Signs: Last Vital Signs Temp 98.1 F 10/12/17 07:30 Pulse 89 10/12/17 10:00 Resp 18 10/12/17 07:30 BP 118/62 10/12/17 09:54 Pulse Ox 100 10/12/17 07:30 - Labs Result Diagrams: 10/11/17 14:46 10/11/17 14:46 Labs: Laboratory Results - last 24 hr 10/11/17 10/11/17 10/11/17 14:46 14:46 15:08 WBC 5.5 D RBC 3.30 L Hgb 10.6 L Hct 32.9 L MCV 99.8 H MCH 32.3 H MCHC 32.3 L RDW 15.1 H Plt Count 109 L MPV 8.4 Neut % (Auto) 81.6 H Lymph % (Auto) 9.7 L [place] % (Auto) 7.8 Eos % (Auto) 0.5 Baso % (Auto) 0.4 Neut # (Auto) 4.5 Lymph # (Auto) 0.5 L [place] # (Auto) 0.4 Eos # (Auto) 0.0 Baso # (Auto) 0.0 Neutrophils % (Manual) 87 H Lymphocytes % (Manual) 9 L Monocytes % (Manual) 4 Platelet Estimate Slightly decreased L Polychromasia Slight Hypochromasia (manual) Slight Anisocytosis (manual) Slight pO2 27 L VBG pH 7.36 VBG pCO2 66 H* VBG HCO3 30.7 VBG Total CO2 39.3 H VBG O2 Sat (Calc) 59.1 VBG Base Excess 9.2 H VBG Potassium 3.6 Glucose 93 Lactate 1.3 Crit Value Called To Dr spencer Crit Value Called By Guilherme casarez Crit Value Read Back Y Blood Gas Notified Time 1511 Sodium 141 141.0 Potassium 4.4 Chloride 94 L 99.0 Carbon Dioxide 35 H Anion Gap 17 BUN 30 H Creatinine 3.0 H Est GFR ( Amer) 19 Est GFR (Non-Af Amer) 16 Random Glucose 99 Calcium 7.8 L Total Bilirubin 1.2 AST 35 ALT 17 Alkaline Phosphatase 313 H D Troponin I 0.0150 Total Protein 8.8 H Albumin 4.2 Globulin 4.7 H Albumin/Globulin Ratio 0.9 L Venous Blood Potassium 3.6 Assessment & Plan (1) 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 renal disease Status: Acute (2) End stage renal disease Status: Acute (3) Nephrogenic fibrosing dermopathy Status: Acute (4) CHF (congestive heart failure) Status: Acute - Assessment and Plan (Free Text) Plan: DIALYSIS NOW THEN TTS follow up labs adequate UF
[2017-10-12 15:14] LABS: BASO % 0.5 % (0.0-2.0); EOS # 0.1 K/uL (0.0-0.7); EOS % 1.7 % (0.0-4.0); HEMOGLOBIN 9.9 g/dL (11.0-16.0); LYMPH # 0.8 K/uL (1.0-4.3); LYMPH % 20.8 % (20.0-40.0); MEAN CELL VOLUME 98.9 fL (81.0-99.0); MEAN CORPUSCULAR HGB CONC 32.4 g/dL (33.0-37.0); MEAN PLATELET VOLUME 8.4 fL (7.2-11.7); MONO # 0.3 K/uL (0.0-0.8); MONO % 8.7 % (0.0-10.0); NEUT # 2.7 K/uL (1.8-7.0); NEUT % 68.3 % (50.0-75.0); NRBC % 0.1 % (0.0-2.0); RBC 3.1 Mil/uL (3.80-5.20); RED CELL DISTRIBUTION WIDTH 15.3 % (11.5-14.5); WHITE BLOOD COUNT 3.9 K/uL (4.8-10.8)
[2017-10-12 15:35] LABS: ALB/GLOB RATIO 0.9 (1.0-2.1); ALBUMIN 3.9 g/dL (3.5-5.0)
--- NOTE | 2017-10-12 19:13 | CP.PCM.PN ---
Subjective - Date & Time of Evaluation Date of Evaluation: 10/12/17 Time of Evaluation: 11:20 - Subjective Subjective: clinically same Objective - Vital Signs/Intake and Output Vital Signs (last 24 hours): Temp Pulse Resp BP Pulse Ox 98.2 F 77 20 144/75 98 10/12/17 18:46 10/12/17 18:46 10/12/17 18:46 10/12/17 18:46 10/12/17 18:46 - Medications Medications: Current Medications Amlodipine Besylate (Norvasc) 5 mg PO DAILY [facility] Last Admin: 10/12/17 10:01 Dose: 5 mg Aspirin (Aspirin) 325 mg PO DAILY [facility] Last Admin: 10/12/17 09:56 Dose: 325 mg Calcium Acetate (Phoslo) 1,334 mg PO TID [facility] Last Admin: 10/12/17 13:19 Dose: 1,334 mg Clopidogrel Bisulfate (Plavix) 75 mg PO DAILY [facility] Last Admin: 10/12/17 09:54 Dose: 75 mg Famotidine (Pepcid) 20 mg PO DAILY [facility] Last Admin: 10/12/17 09:55 Dose: 20 mg Gabapentin (Neurontin) 300 mg PO DAILY [facility] Last Admin: 10/12/17 09:55 Dose: Not Given Heparin Sodium (Porcine) (Heparin) 5,000 units SC Q12 [facility] Last Admin: 10/12/17 09:56 Dose: Not Given Isosorbide Dinitrate (Isordil) 20 mg PO DAILY [facility] Last Admin: 10/12/17 10:02 Dose: 20 mg Loperamide HCl (Imodium) 2 mg PO TID PRN PRN Reason: Diarrhea Metoprolol Tartrate (Lopressor) 25 mg PO BID [facility] Last Admin: 10/12/17 09:54 Dose: 25 mg Oxycodone/Acetaminophen (Percocet 5/325 Mg Tab) 1 tab PO Q4H PRN PRN Reason: Pain Stop: 10/15/17 13:03 Last Admin: 10/12/17 13:16 Dose: 1 tab Sevelamer Carbonate (Renvela) 2,400 mg PO TID [facility] Last Admin: 10/12/17 13:19 Dose: 2,400 mg Sucralfate (Carafate Tab) 1 gm PO TID [facility] Last Admin: 10/12/17 19:00 Dose: 1 gm - Labs Labs: 10/12/17 15:09 10/12/17 15:09 - Constitutional Appears: Well - Head Exam Head Exam: ATRAUMATIC, NORMAL INSPECTION, NORMOCEPHALIC - Eye Exam Eye Exam: EOMI, Normal appearance, PERRL Pupil Exam: NORMAL ACCOMODATION, PERRL - ENT Exam ENT Exam: Mucous Membranes Moist, Normal Exam - Neck Exam Neck Exam: Full ROM, Normal Inspection. absent: Lymphadenopathy - Respiratory Exam Respiratory Exam: Decreased Breath Sounds - Cardiovascular Exam Cardiovascular Exam: REGULAR RHYTHM, +S1, +S2 - GI/Abdominal Exam GI & Abdominal Exam: Soft, Diminished Bowel Sounds - Rectal Exam Rectal Exam: Deferred
[2017-10-13] MEDS: Oxycodone/Acetaminophen 5/325 mg Tab PO PRN ×2 (08:03→16:54)
--- NOTE | 2017-10-13 10:11 | CP.PCM.PN ---
Subjective - Date & Time of Evaluation Date of Evaluation: 10/13/17 Time of Evaluation: 10:09 - Subjective Subjective: in bed, feels ok mentions was nauseous yesterday and threw up no abdominal pain today no SOB or Chest pain ROS- as per HPI, other than that 10 point ROS negative Objective - Vital Signs/Intake and Output Vital Signs (last 24 hours): Temp Pulse Resp BP Pulse Ox 98.1 F 74 20 150/90 100 10/13/17 07:00 10/13/17 08:00 10/13/17 07:00 10/13/17 07:00 10/13/17 08:00 - Medications Medications: Current Medications Amlodipine Besylate (Norvasc) 5 mg PO DAILY [facility] Last Admin: 10/13/17 09:16 Dose: Not Given Aspirin (Aspirin) 325 mg PO DAILY [facility] Last Admin: 10/12/17 09:56 Dose: 325 mg Calcium Acetate (Phoslo) 1,334 mg PO TID [facility] Last Admin: 10/13/17 09:16 Dose: Not Given Clopidogrel Bisulfate (Plavix) 75 mg PO DAILY [facility] Last Admin: 10/13/17 09:16 Dose: Not Given Famotidine (Pepcid) 20 mg PO DAILY [facility] Last Admin: 10/13/17 09:18 Dose: 20 mg Gabapentin (Neurontin) 300 mg PO DAILY [facility] Last Admin: 10/12/17 09:55 Dose: Not Given Heparin Sodium (Porcine) (Heparin) 5,000 units SC Q12 [facility] Last Admin: 10/13/17 09:15 Dose: Not Given Isosorbide Dinitrate (Isordil) 20 mg PO DAILY [facility] Last Admin: 10/13/17 09:16 Dose: Not Given Loperamide HCl (Imodium) 2 mg PO TID PRN PRN Reason: Diarrhea Last Admin: 10/13/17 09:28 Dose: 2 mg Metoprolol Tartrate (Lopressor) 25 mg PO BID [facility] Last Admin: 10/13/17 09:15 Dose: Not Given Oxycodone/Acetaminophen (Percocet 5/325 Mg Tab) 1 tab PO Q4H PRN PRN Reason: Pain Stop: 10/15/17 13:03 Last Admin: 10/13/17 08:03 Dose: 1 tab Sevelamer Carbonate (Renvela) 2,400 mg PO TID [facility] Last Admin: 10/13/17 09:17 Dose: Not Given Sucralfate (Carafate Tab) 1 gm PO TID [facility] Last Admin: 10/13/17 09:18 Dose: Not Given - Labs Labs: 10/12/17 15:09 10/12/17 15:09 - Constitutional Appears: Non-toxic, Chronically Ill - Head Exam Head Exam: ATRAUMATIC, NORMOCEPHALIC - Eye Exam Eye Exam: EOMI Pupil Exam: PERRL - ENT Exam ENT Exam: Mucous Membranes Moist - Neck Exam Neck Exam: Full ROM - Respiratory Exam Respiratory Exam: Clear to Ausculation Bilateral. absent: Rhonchi, Wheezes - Cardiovascular Exam Cardiovascular Exam: REGULAR RHYTHM, +S1, +S2 - GI/Abdominal Exam GI & Abdominal Exam: Soft. 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
--- NOTE | 2017-10-13 18:22 | CP.PCM.PN ---
Subjective - Date & Time of Evaluation Date of Evaluation: 10/13/17 Time of Evaluation: 12:20 - Subjective Subjective: clinically same Objective - Vital Signs/Intake and Output Vital Signs (last 24 hours): Temp Pulse Resp BP Pulse Ox 97.9 F 75 20 169/89 H 98 10/13/17 15:06 10/13/17 15:06 10/13/17 15:06 10/13/17 15:06 10/13/17 15:06 Intake and Output: 10/13/17 10/13/17 06:59 18:59 Intake Total 360 Balance 360 - Medications Medications: Current Medications Amlodipine Besylate (Norvasc) 5 mg PO DAILY [facility] Last Admin: 10/13/17 09:16 Dose: Not Given Aspirin (Aspirin) 325 mg PO DAILY [facility] Last Admin: 10/13/17 11:51 Dose: Not Given Calcium Acetate (Phoslo) 1,334 mg PO TID [facility] Last Admin: 10/13/17 13:42 Dose: Not Given Clopidogrel Bisulfate (Plavix) 75 mg PO DAILY [facility] Last Admin: 10/13/17 09:16 Dose: Not Given Famotidine (Pepcid) 20 mg PO DAILY [facility] Last Admin: 10/13/17 09:18 Dose: 20 mg Gabapentin (Neurontin) 300 mg PO DAILY [facility] Last Admin: 10/12/17 09:55 Dose: Not Given Heparin Sodium (Porcine) (Heparin) 5,000 units SC Q12 [facility] Last Admin: 10/13/17 09:15 Dose: Not Given Isosorbide Dinitrate (Isordil) 20 mg PO DAILY [facility] Last Admin: 10/13/17 09:16 Dose: Not Given Loperamide HCl (Imodium) 2 mg PO TID PRN PRN Reason: Diarrhea Last Admin: 10/13/17 09:28 Dose: 2 mg Metoprolol Tartrate (Lopressor) 25 mg PO BID [facility] Last Admin: 10/13/17 09:15 Dose: Not Given Oxycodone/Acetaminophen (Percocet 5/325 Mg Tab) 1 tab PO Q4H PRN PRN Reason: Pain Stop: 10/15/17 13:03 Last Admin: 10/13/17 16:54 Dose: 1 tab Sevelamer Carbonate (Renvela) 2,400 mg PO TID [facility] Last Admin: 10/13/17 13:42 Dose: Not Given Sucralfate (Carafate Tab) 1 gm PO TID [facility] Last Admin: 10/13/17 13:42 Dose: Not Given - Labs Labs: 10/12/17 15:09 10/12/17 15:09 - Constitutional Appears: Well - Head Exam Head Exam: ATRAUMATIC, NORMAL INSPECTION, NORMOCEPHALIC - Eye Exam Eye Exam: EOMI, Normal appearance, PERRL Pupil Exam: NORMAL ACCOMODATION, PERRL - ENT Exam ENT Exam: Mucous Membranes Moist, Normal Exam - Neck Exam Neck Exam: Full ROM, Normal Inspection. absent: Lymphadenopathy - Respiratory Exam Respiratory Exam: Decreased Breath Sounds - Cardiovascular Exam Cardiovascular Exam: REGULAR RHYTHM, +S1, +S2 - GI/Abdominal Exam GI & Abdominal Exam: Soft, Diminished Bowel Sounds - Rectal Exam Rectal Exam: Deferred
[2017-10-14] MEDS: Oxycodone/Acetaminophen 5/325 mg Tab PO PRN ×3 (01:59→20:34)
--- NOTE | 2017-10-14 14:55 | CP.PCM.PN ---
Subjective - Date & Time of Evaluation Date of Evaluation: 10/14/17 Time of Evaluation: 12:40 - Subjective Subjective: clinically same Objective - Vital Signs/Intake and Output Vital Signs (last 24 hours): Temp Pulse Resp BP Pulse Ox 97.8 F 60 20 148/86 100 10/14/17 07:00 10/14/17 12:00 10/14/17 07:00 10/14/17 10:17 10/14/17 12:00 Intake and Output: 10/14/17 10/14/17 06:59 18:59 Intake Total 400 540 Balance 400 540 - Medications Medications: Current Medications Amlodipine Besylate (Norvasc) 5 mg PO DAILY [facility] Last Admin: 10/14/17 10:17 Dose: 5 mg Aspirin (Aspirin) 325 mg PO DAILY [facility] Last Admin: 10/14/17 10:17 Dose: 325 mg Calcium Acetate (Phoslo) 1,334 mg PO TID [facility] Last Admin: 10/14/17 13:24 Dose: Not Given Clopidogrel Bisulfate (Plavix) 75 mg PO DAILY [facility] Last Admin: 10/14/17 10:16 Dose: 75 mg Famotidine (Pepcid) 20 mg PO DAILY [facility] Last Admin: 10/14/17 10:17 Dose: 20 mg Gabapentin (Neurontin) 300 mg PO DAILY [facility] Last Admin: 10/12/17 09:55 Dose: Not Given Heparin Sodium (Porcine) (Heparin) 5,000 units SC Q12 [facility] Last Admin: 10/14/17 10:17 Dose: Not Given Isosorbide Dinitrate (Isordil) 20 mg PO DAILY [facility] Last Admin: 10/14/17 11:07 Dose: 20 mg Loperamide HCl (Imodium) 2 mg PO TID PRN PRN Reason: Diarrhea Last Admin: 10/14/17 10:17 Dose: 2 mg Metoprolol Tartrate (Lopressor) 25 mg PO BID [facility] Last Admin: 10/14/17 10:17 Dose: 25 mg Oxycodone/Acetaminophen (Percocet 5/325 Mg Tab) 1 tab PO Q4H PRN PRN Reason: Pain Stop: 10/15/17 13:03 Last Admin: 10/14/17 07:53 Dose: 1 tab Sevelamer Carbonate (Renvela) 2,400 mg PO TID [facility] Last Admin: 10/14/17 13:24 Dose: Not Given Sucralfate (Carafate Tab) 1 gm PO TID [facility] Last Admin: 10/14/17 13:21 Dose: Not Given - Labs Labs: 10/12/17 15:09 10/12/17 15:09 - Constitutional Appears: Well - Head Exam Head Exam: ATRAUMATIC, NORMAL INSPECTION, NORMOCEPHALIC - Eye Exam Eye Exam: EOMI, Normal appearance, PERRL Pupil Exam: NORMAL ACCOMODATION, PERRL - ENT Exam ENT Exam: Mucous Membranes Moist, Normal Exam - Neck Exam Neck Exam: Full ROM, Normal Inspection. absent: Lymphadenopathy - Respiratory Exam Respiratory Exam: Decreased Breath Sounds - Cardiovascular Exam Cardiovascular Exam: REGULAR RHYTHM, +S1, +S2 - GI/Abdominal Exam GI & Abdominal Exam: Soft, Diminished Bowel Sounds - Rectal Exam Rectal Exam: Deferred
[2017-10-15] MEDS: Oxycodone/Acetaminophen 5/325 mg Tab PO PRN ×2 (07:52→16:52)
--- NOTE | 2017-10-15 08:57 | CP.PCM.PN ---
Subjective - Date & Time of Evaluation Date of Evaluation: 10/15/17 Time of Evaluation: 08:00 - Subjective Subjective: PGY2- Progress Note for Dr. Newell Patient seen and examined at bedside and in no acute distress. Patient says she is having generalized body aches and that her hands are causing her more pain today. Patient denies chest pain, abdominal pain, nausea, vomiting, constipation , or diarrhea. Objective - Vital Signs/Intake and Output Vital Signs (last 24 hours): Temp Pulse Resp BP Pulse Ox 97.6 F 74 20 142/81 100 10/15/17 07:00 10/15/17 07:00 10/15/17 07:00 10/15/17 07:00 10/15/17 07:00 - Medications Medications: Current Medications Amlodipine Besylate (Norvasc) 5 mg PO DAILY [facility] Last Admin: 10/14/17 10:17 Dose: 5 mg Aspirin (Aspirin) 325 mg PO DAILY [facility] Last Admin: 10/14/17 10:17 Dose: 325 mg Calcium Acetate (Phoslo) 1,334 mg PO TID [facility] Last Admin: 10/14/17 18:17 Dose: Not Given Clopidogrel Bisulfate (Plavix) 75 mg PO DAILY [facility] Last Admin: 10/14/17 10:16 Dose: 75 mg Famotidine (Pepcid) 20 mg PO DAILY [facility] Last Admin: 10/14/17 10:17 Dose: 20 mg Gabapentin (Neurontin) 300 mg PO DAILY [facility] Last Admin: 10/12/17 09:55 Dose: Not Given Heparin Sodium (Porcine) (Heparin) 5,000 units SC Q12 [facility] Last Admin: 10/14/17 21:22 Dose: Not Given Isosorbide Dinitrate (Isordil) 20 mg PO DAILY [facility] Last Admin: 10/14/17 11:07 Dose: 20 mg Loperamide HCl (Imodium) 2 mg PO TID PRN PRN Reason: Diarrhea Last Admin: 10/14/17 10:17 Dose: 2 mg Metoprolol Tartrate (Lopressor) 25 mg PO BID [facility] Last Admin: 10/14/17 18:16 Dose: 25 mg Oxycodone/Acetaminophen (Percocet 5/325 Mg Tab) 1 tab PO Q4H PRN PRN Reason: Pain Stop: 10/15/17 13:03 Last Admin: 10/15/17 07:52 Dose: 1 tab Sevelamer Carbonate (Renvela) 2,400 mg PO TID [facility] Last Admin: 10/14/17 18:17 Dose: 2,400 mg Sucralfate (Carafate Tab) 1 gm PO TID [facility] Last Admin: 10/14/17 18:16 Dose: 1 gm - Labs Labs: 10/12/17 15:09 10/12/17 15:09 - Constitutional Appears: Non-toxic, No Acute Distress - Head Exam Head Exam: ATRAUMATIC, NORMAL INSPECTION, NORMOCEPHALIC - Eye Exam Eye Exam: EOMI, Normal appearance - ENT Exam ENT Exam: Mucous Membranes Moist - Respiratory Exam Respiratory Exam: Clear to Ausculation Bilateral, NORMAL BREATHING PATTERN - Cardiovascular Exam Cardiovascular Exam: REGULAR RHYTHM, RRR, +S1, +S2 - GI/Abdominal Exam GI & Abdominal Exam: Soft, Normal Bowel Sounds. absent: Tenderness - Extremities Exam Extremities Exam: Tenderness Additional comments: tightness of skin, chronic color changes - Neurological Exam Neurological Exam: Alert, Awake, Oriented x3 - Psychiatric Exam Psychiatric exam: Normal Affect, Normal Mood - Skin Skin Exam: Mottled, Warm Additional comments: tightness of skin, chronic color changes Assessment and Plan - Assessment and Plan (Free Text) Assessment: Shortness of breath -resolved -CXR: showed small bilateral pleural effusions -Blood cultures negative HTN -Norvasc 5mg PO Daily -Metoprolol 25mg PO BID -Isosorbide Dinitrate 20mg po daily ESRD on dialysis -Normally TTS -Dr. Eng, nephro, consulted -Phoslo 1334 mg PO TID -Renvela 2400mg PO TID -Carafate 1 gm po TID A Fib -EKG: Atrial fibrillation with RVR, right bundle branch block, T wave abnormality -Metoprolol 25mg PO BID -Plavix 75 mg PO Daily -ASA 325mg po daily PPX Heparin 5000 Units SC Q12 Pepcid 20mg PO Daily Patient stable for discharge. Patient to continue all home medications. Patient to also take Aspirin 325mg po daily. Patient to continue dialysis , , Sunday. Patient to follow up with Dr. Newell as an outpatient. If symptoms return patient to return to Emergency Room. Patient explained instructions who understands and agrees. Plan discussed with Dr. Carina Newell
--- NOTE | 2017-10-15 11:24 | CP.PCM.PN ---
Subjective - Date & Time of Evaluation Date of Evaluation: 10/15/17 Time of Evaluation: 11:21 - Subjective Subjective: alert, less nauseated, not dyspneic no new complaint Hg <10 can resume ESAs with dialysis Objective - Vital Signs/Intake and Output Vital Signs (last 24 hours): Temp Pulse Resp BP Pulse Ox 97.6 F 74 20 142/81 100 10/15/17 07:00 10/15/17 07:00 10/15/17 07:00 10/15/17 07:00 10/15/17 07:00 - Medications Medications: Current Medications Amlodipine Besylate (Norvasc) 5 mg PO DAILY [facility] Last Admin: 10/15/17 10:17 Dose: Not Given Aspirin (Aspirin) 325 mg PO DAILY [facility] Last Admin: 10/15/17 10:16 Dose: Not Given Calcium Acetate (Phoslo) 1,334 mg PO TID [facility] Last Admin: 10/15/17 10:17 Dose: Not Given Clopidogrel Bisulfate (Plavix) 75 mg PO DAILY [facility] Last Admin: 10/15/17 10:17 Dose: Not Given Epoetin Phil (Procrit) 10,000 unit IV TTS [facility] Famotidine (Pepcid) 20 mg PO DAILY [facility] Last Admin: 10/15/17 10:17 Dose: Not Given Gabapentin (Neurontin) 300 mg PO DAILY [facility] Last Admin: 10/12/17 09:55 Dose: Not Given Isosorbide Dinitrate (Isordil) 20 mg PO DAILY [facility] Last Admin: 10/15/17 10:16 Dose: Not Given Loperamide HCl (Imodium) 2 mg PO TID PRN PRN Reason: Diarrhea Last Admin: 10/14/17 10:17 Dose: 2 mg Metoprolol Tartrate (Lopressor) 25 mg PO BID [facility] Last Admin: 10/15/17 10:16 Dose: Not Given Oxycodone/Acetaminophen (Percocet 5/325 Mg Tab) 1 tab PO Q4H PRN PRN Reason: Pain Stop: 10/15/17 13:03 Last Admin: 10/15/17 07:52 Dose: 1 tab Sevelamer Carbonate (Renvela) 2,400 mg PO TID [facility] Last Admin: 10/15/17 10:17 Dose: Not Given Sucralfate (Carafate Tab) 1 gm PO TID [facility] Last Admin: 10/15/17 10:16 Dose: Not Given - Labs Labs: 10/12/17 15:09 10/12/17 15:09 - Constitutional Appears: No Acute Distress, Chronically Ill - Head Exam Head Exam: ATRAUMATIC, NORMAL INSPECTION - Eye Exam Eye Exam: EOMI, Normal appearance - Neck Exam Neck Exam: Normal Inspection. absent: Tenderness - Respiratory Exam Respiratory Exam: Clear to Ausculation Bilateral, NORMAL BREATHING PATTERN - Cardiovascular Exam Cardiovascular Exam: REGULAR RHYTHM, +S1 - GI/Abdominal Exam GI & Abdominal Exam: Soft. absent: Tenderness - Extremities Exam Extremities Exam: Normal Inspection. absent: Tenderness - Neurological Exam Neurological Exam: Awake, CN II-XII Intact - Skin Skin Exam: Mottled, Warm Assessment and Plan (1) 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 renal disease Status: Acute (2) End stage renal disease Status: Acute (3) Nephrogenic fibrosing dermopathy Status: Acute (4) CHF (congestive heart failure) Status: Acute - Assessment and Plan (Free Text) Plan: repeat dialysis in AM, then TTS adequate UF Repeat labs in AM Resume ESAs
--- NOTE | 2017-10-15 19:16 | CP.PCM.PN ---
Subjective - Date & Time of Evaluation Date of Evaluation: 10/15/17 Time of Evaluation: 12:00 - Subjective Subjective: clinically same Objective - Vital Signs/Intake and Output Vital Signs (last 24 hours): Temp Pulse Resp BP Pulse Ox 98.1 F 76 20 162/62 H 95 10/15/17 16:00 10/15/17 16:00 10/15/17 16:00 10/15/17 18:34 10/15/17 16:00 Intake and Output: 10/15/17 10/16/17 18:59 06:59 Intake Total 480 Balance 480 - Medications Medications: Current Medications Amlodipine Besylate (Norvasc) 5 mg PO DAILY [facility] Last Admin: 10/15/17 13:15 Dose: 5 mg Aspirin (Aspirin) 325 mg PO DAILY [facility] Last Admin: 10/15/17 10:16 Dose: Not Given Calcium Acetate (Phoslo) 1,334 mg PO TID [facility] Last Admin: 10/15/17 18:33 Dose: 1,334 mg Clopidogrel Bisulfate (Plavix) 75 mg PO DAILY [facility] Last Admin: 10/15/17 13:14 Dose: 75 mg Epoetin Phil (Procrit) 10,000 unit IV TTS [facility] Famotidine (Pepcid) 20 mg PO DAILY [facility] Last Admin: 10/15/17 13:14 Dose: 20 mg Gabapentin (Neurontin) 300 mg PO DAILY [facility] Last Admin: 10/12/17 09:55 Dose: Not Given Isosorbide Dinitrate (Isordil) 20 mg PO DAILY [facility] Last Admin: 10/15/17 13:14 Dose: 20 mg Loperamide HCl (Imodium) 2 mg PO TID PRN PRN Reason: Diarrhea Last Admin: 10/14/17 10:17 Dose: 2 mg Metoprolol Tartrate (Lopressor) 25 mg PO BID [facility] Last Admin: 10/15/17 18:34 Dose: 25 mg Oxycodone/Acetaminophen (Percocet 5/325 Mg Tab) 1 tab PO Q8H PRN PRN Reason: Pain, severe (8-10) Stop: 10/18/17 16:44 Last Admin: 10/15/17 16:52 Dose: 1 tab Sevelamer Carbonate (Renvela) 2,400 mg PO TID [facility] Last Admin: 10/15/17 18:34 Dose: 2,400 mg Sucralfate (Carafate Tab) 1 gm PO TID [facility] Last Admin: 10/15/17 18:33 Dose: 1 gm - Labs Labs: 10/12/17 15:09 10/12/17 15:09 - Constitutional Appears: Well - Head Exam Head Exam: ATRAUMATIC, NORMAL INSPECTION, NORMOCEPHALIC - Eye Exam Eye Exam: EOMI, Normal appearance, PERRL Pupil Exam: NORMAL ACCOMODATION, PERRL - ENT Exam ENT Exam: Mucous Membranes Moist, Normal Exam - Neck Exam Neck Exam: Full ROM, Normal Inspection. absent: Lymphadenopathy - Respiratory Exam Respiratory Exam: Decreased Breath Sounds - Cardiovascular Exam Cardiovascular Exam: REGULAR RHYTHM, +S1, +S2 - GI/Abdominal Exam GI & Abdominal Exam: Soft, Diminished Bowel Sounds - Rectal Exam Rectal Exam: Deferred
[2017-10-16] MEDS: Oxycodone/Acetaminophen 5/325 mg Tab PO PRN ×2 (02:40→11:45)
[2017-10-16 09:51] LABS: BASO % 0.7 % (0.0-2.0); EOS # 0.1 K/uL (0.0-0.7); EOS % 1.7 % (0.0-4.0); HEMOGLOBIN 9.7 g/dL (11.0-16.0); LYMPH % 24.6 % (20.0-40.0); MEAN CELL VOLUME 98.5 fL (81.0-99.0); MEAN CORPUSCULAR HEMOGLOBIN 31.9 pg (27.0-31.0); MEAN CORPUSCULAR HGB CONC 32.4 g/dL (33.0-37.0); MEAN PLATELET VOLUME 8.8 fL (7.2-11.7); MONO # 0.4 K/uL (0.0-0.8); MONO % 10.1 % (0.0-10.0); NEUT # 2.5 K/uL (1.8-7.0); NEUT % 62.9 % (50.0-75.0); RBC 3.03 Mil/uL (3.80-5.20); RED CELL DISTRIBUTION WIDTH 14.6 % (11.5-14.5)
--- NOTE | 2017-10-16 10:14 | CP.PCM.PN ---
Subjective - Date & Time of Evaluation Date of Evaluation: 10/16/17 Time of Evaluation: 10:14 - Subjective Subjective: Progress Note for Carina Reece's Service Patient seen and examined at bedside. Per nursing no acute events occurred overnight. Patient still reports an improvement in shortness of breath.. Patient denies any chest pain, fevers, chills, nausea, vomiting, lightheadedness , dizziness, changes in vision, abdominal pain, or any other complaints. Objective - Vital Signs/Intake and Output Vital Signs (last 24 hours): Temp Pulse Resp BP Pulse Ox 98.5 F 66 97 H 117/66 97 10/15/17 23:40 10/15/17 23:40 10/15/17 23:40 10/15/17 23:40 10/15/17 23:40 - Medications Medications: Current Medications Amlodipine Besylate (Norvasc) 5 mg PO DAILY [facility] Last Admin: 10/15/17 13:15 Dose: 5 mg Aspirin (Aspirin) 325 mg PO DAILY [facility] Last Admin: 10/15/17 10:16 Dose: Not Given Calcium Acetate (Phoslo) 1,334 mg PO TID [facility] Last Admin: 10/15/17 18:33 Dose: 1,334 mg Clopidogrel Bisulfate (Plavix) 75 mg PO DAILY [facility] Last Admin: 10/15/17 13:14 Dose: 75 mg Epoetin Phil (Procrit) 10,000 unit IV TTS [facility] Famotidine (Pepcid) 20 mg PO DAILY [facility] Last Admin: 10/15/17 13:14 Dose: 20 mg Gabapentin (Neurontin) 300 mg PO DAILY [facility] Last Admin: 10/12/17 09:55 Dose: Not Given Isosorbide Dinitrate (Isordil) 20 mg PO DAILY [facility] Last Admin: 10/15/17 13:14 Dose: 20 mg Loperamide HCl (Imodium) 2 mg PO TID PRN PRN Reason: Diarrhea Last Admin: 10/14/17 10:17 Dose: 2 mg Metoprolol Tartrate (Lopressor) 25 mg PO BID [facility] Last Admin: 10/15/17 18:34 Dose: 25 mg Oxycodone/Acetaminophen (Percocet 5/325 Mg Tab) 1 tab PO Q8H PRN PRN Reason: Pain, severe (8-10) Stop: 10/18/17 16:44 Last Admin: 10/16/17 02:40 Dose: 1 tab Sevelamer Carbonate (Renvela) 2,400 mg PO TID [facility] Last Admin: 10/15/17 18:34 Dose: 2,400 mg Sucralfate (Carafate Tab) 1 gm PO TID [facility] Last Admin: 10/15/17 18:33 Dose: 1 gm - Labs Labs: 10/16/17 09:47 10/12/17 15:09 Assessment and Plan - Assessment and Plan (Free Text) Assessment: 67 year old female with a past medical history of atrial fibrillation, ESRD, Hypertension, and copd who was admitted for atrial fibrillation and shortness of breath. Plan: Shortness of breath -resolved -CXR: showed small bilateral pleural effusions -Blood cultures negative HTN -Norvasc 5mg PO Daily -Metoprolol 25mg PO BID -Isosorbide Dinitrate 20mg po daily ESRD on dialysis -Normally TTS -Dr. Eng, nephro, consulted -Phoslo 1334 mg PO TID -Renvela 2400mg PO TID -Carafate 1 gm po TID A Fib -EKG: Atrial fibrillation with RVR, right bundle branch block, T wave abnormality -Metoprolol 25mg PO BID -Plavix 75 mg PO Daily -ASA 325mg po daily PPX Heparin 5000 Units SC Q12 Pepcid 20mg PO Daily Patient stable for discharge. Patient to continue all home medications. Patient to also take Aspirin 325mg po daily. Patient to continue dialysis , , Sunday. Patient to follow up with Dr. Newell as an outpatient. If symptoms return patient to return to Emergency Room. Patient explained instructions who understands and agrees. Patient was scheduled to leave 10/15, however patient's son wasn't at home and was unable to be transferred. Patient will be discharged today with same discharge plan as 10/15/17. Patient unable to leave on 10/15/17 due to family not being home. Patient discharged on 10/16/17. Plan discussed with Dr. Carina Newell
[2017-10-16] MEDS: Epoetin Alfa 10,000 unit/ml Dialysis IV SCH ×2 (10:15→10:42)
--- NOTE | 2017-10-16 10:29 | CP.PCM.PN ---
Subjective - Date & Time of Evaluation Date of Evaluation: 10/16/17 Time of Evaluation: 10:28 - Subjective Subjective: seen and examined in hd feels well, at baseline estimated uf 2.5L no cp/sob/dizziness/n/v/d/f/c Objective - Vital Signs/Intake and Output Vital Signs (last 24 hours): Temp Pulse Resp BP Pulse Ox 98.5 F 66 97 H 117/66 97 10/15/17 23:40 10/15/17 23:40 10/15/17 23:40 10/15/17 23:40 10/15/17 23:40 - Medications Medications: Current Medications Amlodipine Besylate (Norvasc) 5 mg PO DAILY [facility] Last Admin: 10/16/17 10:14 Dose: Not Given Aspirin (Aspirin) 325 mg PO DAILY [facility] Last Admin: 10/16/17 10:13 Dose: Not Given Calcium Acetate (Phoslo) 1,334 mg PO TID [facility] Last Admin: 10/16/17 10:14 Dose: Not Given Clopidogrel Bisulfate (Plavix) 75 mg PO DAILY [facility] Last Admin: 10/16/17 10:14 Dose: Not Given Epoetin Phil (Procrit) 10,000 unit IV TTS [facility] Last Admin: 10/16/17 10:15 Dose: Not Given Famotidine (Pepcid) 20 mg PO DAILY [facility] Last Admin: 10/16/17 10:14 Dose: Not Given Gabapentin (Neurontin) 300 mg PO DAILY [facility] Last Admin: 10/12/17 09:55 Dose: Not Given Isosorbide Dinitrate (Isordil) 20 mg PO DAILY [facility] Last Admin: 10/16/17 10:14 Dose: Not Given Loperamide HCl (Imodium) 2 mg PO TID PRN PRN Reason: Diarrhea Last Admin: 10/14/17 10:17 Dose: 2 mg Metoprolol Tartrate (Lopressor) 25 mg PO BID [facility] Last Admin: 10/16/17 10:14 Dose: Not Given Oxycodone/Acetaminophen (Percocet 5/325 Mg Tab) 1 tab PO Q8H PRN PRN Reason: Pain, severe (8-10) Stop: 10/18/17 16:44 Last Admin: 10/16/17 02:40 Dose: 1 tab Sevelamer Carbonate (Renvela) 2,400 mg PO TID [facility] Last Admin: 10/16/17 10:15 Dose: Not Given Sucralfate (Carafate Tab) 1 gm PO TID [facility] Last Admin: 10/16/17 10:13 Dose: Not Given - Labs Labs: 10/16/17 09:47 10/12/17 15:09 - Constitutional Appears: Non-toxic, No Acute Distress, Chronically Ill - Head Exam Head Exam: NORMAL INSPECTION, NORMOCEPHALIC - Eye Exam Eye Exam: Normal appearance, PERRL - ENT Exam ENT Exam: Mucous Membranes Moist, Normal Exam - Neck Exam Neck Exam: Full ROM, Normal Inspection - Respiratory Exam Respiratory Exam: Clear to Ausculation Bilateral, NORMAL BREATHING PATTERN - Cardiovascular Exam Cardiovascular Exam: REGULAR RHYTHM, RRR - GI/Abdominal Exam GI & Abdominal Exam: Distended, Soft - Extremities Exam Extremities Exam: Normal Inspection (chronic skin changes) - Neurological Exam Neurological Exam: Alert, Awake, Oriented x3 - Psychiatric Exam Psychiatric exam: Normal Affect, Normal Mood - Skin Skin Exam: Intact Assessment and Plan (1) CHF (congestive heart failure) Status: Acute (2) End stage renal disease Status: Acute (3) 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 renal disease Status: Acute (4) Nephrogenic fibrosing dermopathy Status: Acute - Assessment and Plan (Free Text) Assessment: maintain hd tts stable from renal standpoint
[2017-10-16 10:52] LABS: ALB/GLOB RATIO 0.9 (1.0-2.1); ALBUMIN 3.8 g/dL (3.5-5.0); CALCIUM 8.1 mg/dl (8.6-10.4)
[2017-10-16 12:43] VITALS: BP 129/61; PULSE 80; RESP 16; TEMP 97.4; O2SAT 95
== END 2017-10-16 14:11 | disposition home health service (06) | DRG 308 ==
LOC: C.ER 13:46 → C.9E 16:04 → C.6T 17:13 → OBSVTOIN 10-14 17:30
PROVIDERS: ADMIT Internal Medicine Nephrology; ATTEND Internal Medicine Nephrology
PROC: 5A1D70Z Performance of Urinary Filtration, Intermittent, Less than 6 Hours Per Day (ICD-10-PCS; principal; 2017-10-12)
PROC: 5A1D70Z Performance of Urinary Filtration, Intermittent, Less than 6 Hours Per Day (ICD-10-PCS; 2017-10-16)
DX: I48.91 Unspecified atrial fibrillation (principal); I95.3 Hypotension of hemodialysis; I13.2 Hypertensive heart and chronic kidney disease with heart failure and with stage 5 chronic kidney disease, or end stage renal disease; N18.6 End stage renal disease; I50.9 Heart failure, unspecified; N25.81 Secondary hyperparathyroidism of renal origin; J44.9 Chronic obstructive pulmonary disease, unspecified; R06.02 Shortness of breath; T86.12 Kidney transplant failure; M34.9 Systemic sclerosis, unspecified; I45.10 Unspecified right bundle-branch block; I25.10 Atherosclerotic heart disease of native coronary artery without angina pectoris; L90.8 Other atrophic disorders of skin; I42.9 Cardiomyopathy, unspecified; E78.5 Hyperlipidemia, unspecified; M19.90 Unspecified osteoarthritis, unspecified site; H40.9 Unspecified glaucoma; M81.0 Age-related osteoporosis without current pathological fracture; Z79.02 Long term (current) use of antithrombotics/antiplatelets; Z79.82 Long term (current) use of aspirin; Z79.899 Other long term (current) drug therapy; Z87.442 Personal history of urinary calculi; Z90.49 Acquired absence of other specified parts of digestive tract; Z95.0 Presence of cardiac pacemaker; Z99.2 Dependence on renal dialysis

== ENCOUNTER 2018-01-24 16:27 | Inpatient (IN) | payer MEDICARE, OTHER ==
[2018-01-24 16:29] VITALS: PULSE 146
[2018-01-24 16:38] VITALS: BMI 22.3
--- NOTE | 2018-01-24 16:57 | C.PDOC ---
History Of Present Illness 67 y/o female with PMHx of A Fib, ESRD (on hemodialysis ), presents to the ED complaining of palpitations and chest pain that began after dialysis today. Reports she did receive the full dialysis session today. As per EMS, ASA 324mg and 1 nitro SL were given in the field. On arrival patient is resting comfortably. She denies any associated SOB, fever, chills, sweats, cough, nausea, vomiting, abdominal pain, or new leg pain/swelling. Patient requesting percocet. Time Seen by Provider: 01/24/18 16:38 Chief Complaint (Nursing): Palpitations History Per: Patient History/Exam Limitations: no limitations Onset/Duration Of Symptoms: Hrs Current Symptoms Are (Timing): Still Present Associated Symptoms: Chest Pain Quality Of Symptoms: Rapid Heart Rate Past Medical History Reviewed: Historical Data, Nursing Documentation, Vital Signs Vital Signs: Last Vital Signs Temp 98.1 F 01/24/18 16:38 Pulse 101 H 01/24/18 16:38 Resp 16 01/24/18 16:38 BP 99/65 L 01/24/18 16:38 Pulse Ox 100 01/24/18 16:38 - Medical History PMH: Anemia, Arthritis, Asthma, Atrial Fibrillation, CAD, Cardia Arrhythmia, CHF (A-fib, CAD), COPD, Depression, HTN, Hyperlipidemia, Kidney Stones, Migraine, Osteoporosis, Pancreatitis, Peripheral Edema, End Stage Renal Disease, Chronic Kidney Disease Denies: Hypercholesterolemia, Rheumatoid Arthritis, Sexually Transmitted Disease Surgical History: Cholecystectomy, Endoscopy, Pacemaker - [facility] Procedures (10/14/17) ANGIOPLASTY OF OTHER NON-CORONARY VESSEL(S) (12/04/13) DIALYSIS ARTERIOVENOSTOM (12/04/13) DRAINAGE OF LEFT PLEURAL CAVITY, PERCUTANEOUS APPROACH (09/01/16) FLEXIBLE SIGMOIDOSCOPY (07/30/14) FLUOROSCOPY OF LEFT HEART USING LOW OSMOLAR CONTRAST (02/01/16) FLUOROSCOPY OF MULT COR ART USING L OSM CONTRAST (02/01/16) HEMODIALYSIS (09/30/14) INSEJ [id number] PERIPHERAL NON-CORONARY VES STENT(S) (12/04/13) INSERTION OF ONE VASCULAR STENT (12/04/13) MEASURE OF CARDIAC SAMPL & PRESSURE, L HEART, PERC APPROACH (02/01/16) OTHER ENDOSCOPY OF SM INTEST (07/30/14) PACKED CELL TRANSFUSION (09/30/14) PERFORMANCE OF URINARY FILTRATION, MULTIPLE (10/16/16) PERFORMANCE OF URINARY FILTRATION, SINGLE (09/28/16) PROCEDURE ON SINGLE VESSEL (12/04/13) RESPIRATORY VENTILATION, GREATER THAN 96 CONSECUTIVE HOURS (09/01/16) TRANSFUSE NONAUT PLATELETS IN PERIPH VEIN, PERC (09/01/16) VASC PROC REVISION NEC (12/04/13) VENOUS CATHETERIZATION FOR RENAL DIALYSIS (12/04/13) Family History: States: Unknown Family Hx - Social History Hx Tobacco Use: No Hx Alcohol Use: No Hx Substance Use: No - Immunization History Hx Tetanus Toxoid Vaccination: Yes Hx Influenza Vaccination: Yes Hx Pneumococcal Vaccination: Yes Review Of Systems Constitutional: Negative for: Fever, Chills, Sweats Eyes: Negative for: Vision Change Cardiovascular: Positive for: Chest Pain, Palpitations Respiratory: Negative for: Cough, Shortness of Breath Gastrointestinal: Negative for: Nausea, Vomiting, Diarrhea Musculoskeletal: Negative for: Leg Pain (or swelling) Neurological: Negative for: Weakness, Numbness, Altered Mental Status, Headache, Dizziness Physical Exam - Physical Exam Appears: Non-toxic, No Acute Distress Skin: Dry, Other (scleraderma diffusely, noted to face and extremities) Head: Atraumatic, Normacephalic Eye(s): bilateral: Normal Inspection, PERRL, EOMI Oral Mucosa: Moist Neck: Normal ROM, Supple Chest: Symmetrical Cardiovascular: Rhythm Regular, No Murmur Respiratory: No Accessory Muscle Use, Rales (at bases), No Rhonchi, No Wheezing Gastrointestinal/Abdominal: Soft, No Tenderness, No Distention Extremity: Bilateral: Atraumatic, No Pedal Edema, Normal ROM Pulses: Left Dorsalis Pedis: Normal, Right Dorsalis Pedis: Normal Neurological/Psych: Oriented x3, Normal Speech Gait: Steady ED Course And Treatment - Laboratory Results Result Diagrams: 01/24/18 17:33 01/24/18 17:33 Lab Interpretation: No Acute Changes ECG: Interpreted By Me ECG Rhythm: Atrial Flutter ECG Interpretation: No Acute Changes Rate From EC O2 Sat by Pulse Oximetry: 100 Pulse Ox Interpretation: Normal - Other Rad CXR X-Ray: Read By Radiologist Interpretation: Accession No. : [id number]. Patient Name / ID : MICHAEL SAMUEL / [id number]. Exam Date : 01/24/2018 17:35:25 ( Approved ). Study Comment : Sex / Age : F / [id number]. Creator : Oleg Castano MD. Dictator : Oleg Castano MD. Gymnastics Coach Or Instructor : Manager Target : Oleg Castano MD. Approver2 : Report Date : 01/24/2018 18:01:54. My Comment : . Date of service: 01/24/2018. PROCEDURE: CHEST RADIOGRAPH, 1 VIEW. HISTORY: SOB. COMPARISON: 10/11/2017. FINDINGS: LUNGS: Pulmonary vascular congestion similar to that seen previously. PLEURA: Bilateral pleural effusions approximately stable. CARDIOVASCULAR: Persistent pulmonary vascular congestion. Position/ configuration of pacemaker\AICD device: Satisfactory. Atherosclerotic calcifications identified primarily aortic arch. OSSEOUS STRUCTURES: No significant abnormalities. VISUALIZED UPPER ABDOMEN: Normal. OTHER FINDINGS: None. IMPRESSION: No significant interval change compared to the prior examination(s). Progress Note: Treated with percocet x 1 for pain Reassessment Condition: Improved - Physician Consult Information Physician Contacted: Porsha Newell Outcome Of Conversation: admit Medical Decision Making Medical Decision Making: Initial Plan: --CMP --CK-MB --Troponin I --Lipase --CBC --PTT/PT --Chest x-ray --Urinalysis --Percocet 1 tab PO Disposition Discussed With : Porsha Newell Doctor Will See Patient In The: Hospital - Disposition Disposition: HOSPITALIZED Disposition Time: 18:30 Condition: STABLE - POA Present On Arrival: None - Clinical Impression Clinical Impression: Palpitations, Chest pain - PA / [employer] MECH[employer]IC / Resident Statement MD/DO has reviewed & agrees with the documentation as recorded. - Scribe Statement The provider has reviewed the documentation as recorded by the Scribe (Kami Leon) All medical record entries made by the Scribe were at my direction and personal ly dictated by me. I have reviewed the chart and agree that the record accurately reflects my personal performance of the history, physical exam, medical decision making, and the department course for this patient. I have also personally directed, reviewed, and agree with the discharge instructions and disposition. Decision To Admit - Pt Status Changed To: Hospital Disposition Of: Inpatient - Admit Certification Admit to Inpatient:: After my assessment, the patient will require hospitalizat ion for at least two midnights. This is because of the severity of symptoms shown, intensity of services needed, and/or the medical risk in this patient being treated as an outpatient. - InPatient: Physician Admission Certification: I certify that this patient requires 2 or more midnights of care for the following reason:: chest pain. Palpitations. ESRD - . Bed Request Type: Telemetry Admitting Physician: Porsha Newell Patient Diagnosis: Palpitations, Chest pain
[2018-01-24] MEDS ORDERED: Oxycodone/Acetaminophen 5/325 mg Tab PO STA (17:01)
[2018-01-24 17:38] LABS: BASO % 0.4 % (0.0-2.0); EOS % 1.2 % (0.0-4.0); HEMOGLOBIN 11.3 g/dL (11.0-16.0); LYMPH # 0.7 K/uL (1.0-4.3); LYMPH % 17.5 % (20.0-40.0); MEAN CELL VOLUME 98.9 fL (81.0-99.0); MEAN CORPUSCULAR HEMOGLOBIN 32.5 pg (27.0-31.0); MEAN CORPUSCULAR HGB CONC 32.8 g/dL (33.0-37.0); MEAN PLATELET VOLUME 7.9 fL (7.2-11.7); MONO # 0.3 K/uL (0.0-0.8); MONO % 8.1 % (0.0-10.0); NEUT # 2.9 K/uL (1.8-7.0); NEUT % 72.8 % (50.0-75.0); NRBC % 0.1 % (0.0-2.0); RBC 3.49 Mil/uL (3.80-5.20)
[2018-01-24 17:51] LABS: ALB/GLOB RATIO 0.9 (1.0-2.1); CALCIUM 7.3 mg/dl (8.6-10.4)
[2018-01-24] MEDS ORDERED: Oxycodone/Acetaminophen 5/325 mg Tab ONE (17:57)
[2018-01-24 18:02] LABS: CK-MB 1.09 ng/mL (0.0-3.38); TROPONIN I 0.017 ng/mL (0.00-0.120)
--- NOTE | 2018-01-24 18:05 | RAD ---
Date of service: 01/24/2018 PROCEDURE: CHEST RADIOGRAPH, 1 VIEW HISTORY: SOB COMPARISON: 10/11/2017. FINDINGS: LUNGS: Pulmonary vascular congestion similar to that seen previously. PLEURA: Bilateral pleural effusions approximately stable. CARDIOVASCULAR: Persistent pulmonary vascular congestion. Position/ configuration of pacemaker Atherosclerotic calcifications identified primarily aortic arch. OSSEOUS STRUCTURES: No significant abnormalities. VISUALIZED UPPER ABDOMEN: Normal. OTHER FINDINGS: None. IMPRESSION: No significant interval change compared to the prior examination(s).
[2018-01-24 18:28] LABS: INR 1.1; PROTHROMBIN TIME 11.9 SECONDS (9.7-12.2)
--- NOTE | 2018-01-24 19:07 | CP.PCM.HP ---
Past Patient History - Infectious Disease Hx of Infectious Diseases: None - Tetanus Immunizations Tetanus Immunization: Unknown - Past Medical History & Family History Past Medical History?: Yes - Past Social History Smoking Status: Never Smoked - CARDIAC Hx Atrial Fibrillation: Yes Hx Cardia Arrhythmia: Yes Hx Congestive Heart Failure: Yes (A-fib, CAD) Hx Hypercholesterolemia: No Hx Hypertension: Yes Hx Pacemaker: Yes Hx Peripheral Edema: Yes - PULMONARY Hx Asthma: Yes Hx Chronic Obstructive Pulmonary Disease (COPD): Yes - NEUROLOGICAL Hx Migraine: Yes - HEENT Hx HEENT Problems: Yes Hx Glaucoma: Yes (rt eye) - RENAL Hx Chronic Kidney Disease: Yes Hx Kidney Stones: Yes - ENDOCRINE/METABOLIC Hx Endocrine Disorders: No - HEMATOLOGICAL/ONCOLOGICAL Hx Anemia: Yes - INTEGUMENTARY Hx Dermatological Problems: Yes Other/Comment: Scleroderma of both arms/both legs - MUSCULOSKELETAL/RHEUMATOLOGICAL Hx Arthritis: Yes Hx Osteoporosis: Yes Hx Rheumatoid Arthritis: No - GASTROINTESTINAL Hx Pancreatitis: Yes - GENITOURINARY/GYNECOLOGICAL Hx Sexually Transmitted Disorders: No - PSYCHIATRIC Hx Depression: Yes Hx Substance Use: No - SURGICAL HISTORY Hx Cholecystectomy: Yes - ANESTHESIA Hx Anesthesia: Yes Hx Anesthesia Reactions: No Hx Malignant Hyperthermia: No Meds Allergies/Adverse Reactions: Allergies Allergy/AdvReac Type Severity Reaction Status Date / Time vancomycin Allergy Severe ITCHING Verified 01/24/18 16:38 azithromycin Allergy ITCHING Verified 01/24/18 16:38 budesonide [From Symbicort] Allergy ITCHING Verified 01/24/18 16:38 formoterol [From Symbicort] Allergy ITCHING Verified 01/24/18 16:38 gabapentin Allergy RASH Verified 01/24/18 16:38 Results - Vital Signs Recent Vital Signs: Last Vital Signs Temp 98.1 F 01/24/18 16:38 Pulse 106 H 01/24/18 18:08 Resp 18 01/24/18 18:08 BP 125/80 01/24/18 18:08 Pulse Ox 100 01/24/18 18:28 - Labs Result Diagrams: 01/24/18 17:33 01/24/18 17:33 Labs: Laboratory Results - last 24 hr 01/24/18 01/24/18 01/24/18 17:33 17:33 18:10 WBC 4.0 L RBC 3.49 L Hgb 11.3 Hct 34.5 MCV 98.9 MCH 32.5 H MCHC 32.8 L RDW 17.0 H Plt Count 94 L D MPV 7.9 Neut % (Auto) 72.8 Lymph % (Auto) 17.5 L [place] % (Auto) 8.1 Eos % (Auto) 1.2 Baso % (Auto) 0.4 Neut # (Auto) 2.9 Lymph # (Auto) 0.7 L [place] # (Auto) 0.3 Eos # (Auto) 0.0 Baso # (Auto) 0.0 PT 11.9 INR 1.1 APTT 24 Sodium 137 Potassium 3.9 Chloride 91 L Carbon Dioxide 30 Anion Gap 19 BUN 29 H Creatinine 3.0 H Est GFR ( Amer) 19 Est GFR (Non-Af Amer) 16 Random Glucose 110 H Calcium 7.3 L Total Bilirubin 0.7 AST 23 ALT 13 Alkaline Phosphatase 247 H CK-MB (Mass) 1.09 Troponin I 0.0170 Total Protein 8.3 Albumin 4.0 Globulin 4.4 H Albumin/Globulin Ratio 0.9 L Lipase 74
[2018-01-24] MEDS: Oxycodone/Acetaminophen 5/325 mg Tab PO PRN (23:09)
[2018-01-25] MEDS: Oxycodone/Acetaminophen 5/325 mg Tab PO PRN ×2 (05:43→18:08)
--- NOTE | 2018-01-25 13:52 | CP.PCM.CON ---
History of Present Illness - History of Present Illness History of Present Illness: 67 y/o female with PMHx of A Fib, ESRD (on hemodialysis ), presents to the ED complaining of palpitations and chest pain that began after dialysis today. Reports she did receive the full dialysis session today. As per EMS, ASA 324mg and 1 nitro SL were given in the field. On arrival patient is resting comfortably. She denies any associated SOB, fever, chills, sweats, cough, nausea, vomiting, abdominal pain, or new leg pain/swelling. Patient requesting percocet. Better post percocet For dialysis in AM - Medical History PMH: Anemia, Arthritis, Asthma, Atrial Fibrillation, CAD, Cardia Arrhythmia, CHF (A-fib, CAD), COPD, Depression, HTN, Hyperlipidemia, Kidney Stones, Migraine, Osteoporosis, Pancreatitis, Peripheral Edema, End Stage Renal Disease, Chronic Kidney Disease, nephrogenic sclerosing dermopathy Denies: Hypercholesterolemia, Rheumatoid Arthritis, Sexually Transmitted Disease Surgical History: Cholecystectomy, Endoscopy, Pacemaker, AV graft x 2 Review of Systems - Constitutional Constitutional: Malaise, Weakness - EENT Eyes: Blurred Vision Ears: absent: As Per HPI, Decreased Hearing, Ear Discharge, Ear Pain, Tinnitus, Abnormal Hearing, Disequilibrium, Dizziness, Other Nose/Mouth/Throat: absent: As Per HPI, Epistaxis, Nasal Congestion, Nasal Discharge, Nasal Obstruction, Nasal Trauma, Nose Pain, Post Nasal Drip, Sinus Pain, Sinus Pressure, Bleeding Gums, Change in Voice, Dental Pain, Dry Mouth, Dysphagia, Halitosis, Hoarsness, Lip Swelling, Mouth Lesions, Mouth Pain, Odynophagia, Sore Throat, Throat Swelling, Tongue Swelling, Facial Pain, Neck Pain, Neck Mass, Other - Cardiovascular Cardiovascular: Chest Pain, Dyspnea on Exertion - Respiratory Respiratory: Cough, Dyspnea on Exertion - Gastrointestinal Gastrointestinal: absent: As Per HPI, Abdominal Pain, Belching, Bloating, Change in Bowel Habits, Change in Stool Character, Coffee Ground Emesis, Constipation, Cramping, Diarrhea, Dyspepsia, Dysphagia, Early Satiety, Excessive Flatus, Fecal Incontinence, Heartburn, Hematemesis, Hematochezia, Loose Stools, Melena, Nausea, Odynophagia, Temesmus, Vomiting, Other - Genitourinary Genitourinary: As Per HPI - Musculoskeletal Musculoskeletal: Muscle Weakness, Myalgias - Integumentary Integumentary: Change in Pigmentation, Sores - Neurological Neurological: Weakness Past Patient History - Infectious Disease Hx of Infectious Diseases: None - Tetanus Immunizations Tetanus Immunization: Unknown - Past Medical History & Family History Past Medical History?: Yes Past Family History: Reviewed and not pertinent - Past Social History Smoking Status: Never Smoked Chewing Tobacco Use: No Cigar Use: No Alcohol: None Drugs: Denies Home Situation {Lives}: Alone - CARDIAC Hx Atrial Fibrillation: Yes Hx Cardia Arrhythmia: Yes Hx Congestive Heart Failure: Yes (A-fib, CAD) Hx Hypercholesterolemia: No Hx Hypertension: Yes Hx Pacemaker: Yes Hx Peripheral Edema: Yes - PULMONARY Hx Asthma: Yes Hx Chronic Obstructive Pulmonary Disease (COPD): Yes - NEUROLOGICAL Hx Migraine: Yes - HEENT Hx HEENT Problems: Yes Hx Glaucoma: Yes (rt eye) - RENAL Hx Chronic Kidney Disease: Yes Type of Dialysis Access: FAITH AV shunt Date of Last Dialysis Treatment: 01/24/18 Hx Kidney Stones: Yes - ENDOCRINE/METABOLIC Hx Endocrine Disorders: No - HEMATOLOGICAL/ONCOLOGICAL Hx Anemia: Yes - INTEGUMENTARY Hx Dermatological Problems: Yes Other/Comment: Scleroderma of both arms/both legs - MUSCULOSKELETAL/RHEUMATOLOGICAL Hx Arthritis: Yes Hx Falls: No Hx Osteoporosis: Yes Hx Rheumatoid Arthritis: No - GASTROINTESTINAL Hx Pancreatitis: Yes - GENITOURINARY/GYNECOLOGICAL Hx Sexually Transmitted Disorders: No - PSYCHIATRIC Hx Depression: Yes Hx Substance Use: No - SURGICAL HISTORY Hx Arteriovenous Shunt: Yes Hx Cholecystectomy: Yes - ANESTHESIA Hx Anesthesia: Yes Hx Anesthesia Reactions: No Hx Malignant Hyperthermia: No Meds Allergies/Adverse Reactions: Allergies Allergy/AdvReac Type Severity Reaction Status Date / Time vancomycin Allergy Severe ITCHING Verified 01/24/18 16:38 azithromycin Allergy ITCHING Verified 01/24/18 16:38 budesonide [From Symbicort] Allergy ITCHING Verified 01/24/18 16:38 formoterol [From Symbicort] Allergy ITCHING Verified 01/24/18 16:38 - Medications Medications: Current Medications Amlodipine Besylate (Norvasc) 5 mg PO DAILY [facility] Last Admin: 01/25/18 09:30 Dose: 5 mg Aspirin (Aspirin) 325 mg PO DAILY [facility] Last Admin: 01/25/18 09:45 Dose: 325 mg Calcium Acetate (Phoslo) 1,334 mg PO TIDCC [facility] Last Admin: 01/25/18 09:30 Dose: 1,334 mg Clopidogrel Bisulfate (Plavix) 75 mg PO DAILY [facility] Last Admin: 01/25/18 09:30 Dose: 75 mg Epoetin Phil (Procrit) 10,000 unit IV TTS [facility] Famotidine (Pepcid) 20 mg PO DAILY [facility] Last Admin: 01/25/18 09:30 Dose: 20 mg Gabapentin (Neurontin) 300 mg PO DAILY [facility] Last Admin: 01/25/18 09:30 Dose: 300 mg Isosorbide Dinitrate (Isordil) 20 mg PO DAILY [facility] Last Admin: 01/25/18 09:43 Dose: 20 mg Loperamide HCl (Imodium) 2 mg PO TID PRN PRN Reason: Diarrhea Metoprolol Tartrate (Lopressor) 25 mg PO BID [facility] Last Admin: 01/25/18 09:43 Dose: 25 mg Oxycodone/Acetaminophen (Percocet 5/325 Mg Tab) 1 tab PO Q4H PRN PRN Reason: Pain Stop: 01/27/18 19:03 Last Admin: 01/25/18 05:43 Dose: 1 tab Sevelamer Carbonate (Renvela) 2,400 mg PO TIDCC [facility] Last Admin: 01/25/18 09:29 Dose: 2,400 mg Sucralfate (Carafate Tab) 1 gm PO TID [facility] Last Admin: 01/25/18 09:30 Dose: 1 gm Physical Exam - Constitutional Appears: No Acute Distress, Chronically Ill - Head Exam Head Exam: ATRAUMATIC, NORMAL INSPECTION - Eye Exam Eye Exam: EOMI, Normal appearance - Neck Exam Neck exam: Positive for: Normal Inspection. Negative for: Tenderness - Respiratory Exam Respiratory Exam: Clear to Auscultation Bilateral, NORMAL BREATHING PATTERN - Cardiovascular Exam Cardiovascular Exam: REGULAR RHYTHM, +S1 - GI/Abdominal Exam GI & Abdominal Exam: Soft. absent: Tenderness - Extremities Exam Extremities exam: Positive for: normal inspection. Negative for: tenderness - Neurological Exam Neurological exam: Alert, CN II-XII Intact - Skin Skin Exam: Pallor, Warm Results - Vital Signs Recent Vital Signs: Last Vital Signs Temp 97.5 F L 01/25/18 09:01 Pulse 71 01/25/18 09:01 Resp 20 01/25/18 09:01 BP 152/87 H 01/25/18 09:43 Pulse Ox 95 01/25/18 09:01 - Labs Result Diagrams: 01/24/18 17:33 01/24/18 17:33 Labs: Laboratory Results - last 24 hr 01/24/18 01/24/18 01/24/18 17:33 17:33 18:10 WBC 4.0 L RBC 3.49 L Hgb 11.3 Hct 34.5 MCV 98.9 MCH 32.5 H MCHC 32.8 L RDW 17.0 H Plt Count 94 L D MPV 7.9 Neut % (Auto) 72.8 Lymph % (Auto) 17.5 L [place] % (Auto) 8.1 Eos % (Auto) 1.2 Baso % (Auto) 0.4 Neut # (Auto) 2.9 Lymph # (Auto) 0.7 L [place] # (Auto) 0.3 Eos # (Auto) 0.0 Baso # (Auto) 0.0 PT 11.9 INR 1.1 APTT 24 Sodium 137 Potassium 3.9 Chloride 91 L Carbon Dioxide 30 Anion Gap 19 BUN 29 H Creatinine 3.0 H Est GFR ( Amer) 19 Est GFR (Non-Af Amer) 16 Random Glucose 110 H Calcium 7.3 L Total Bilirubin 0.7 AST 23 ALT 13 Alkaline Phosphatase 247 H CK-MB (Mass) 1.09 Troponin I 0.0170 Total Protein 8.3 Albumin 4.0 Globulin 4.4 H Albumin/Globulin Ratio 0.9 L Lipase 74 TSH 3rd Generation 01/25/18 07:21 WBC RBC Hgb Hct MCV MCH MCHC RDW Plt Count MPV Neut % (Auto) Lymph % (Auto) [place] % (Auto) Eos % (Auto) Baso % (Auto) Neut # (Auto) Lymph # (Auto) [place] # (Auto) Eos # (Auto) Baso # (Auto) PT INR APTT Sodium Potassium Chloride Carbon Dioxide Anion Gap BUN Creatinine Est GFR ( Amer) Est GFR (Non-Af Amer) Random Glucose Calcium Total Bilirubin AST ALT Alkaline Phosphatase CK-MB (Mass) Troponin I Total Protein Albumin Globulin Albumin/Globulin Ratio Lipase TSH 3rd Generation 3.09 Assessment & Plan (1) 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 renal disease Status: Acute (2) Nephrogenic systemic fibrosis Status: Acute (3) CHF (congestive heart failure) Status: Acute (4) ESRD on hemodialysis Status: Acute - Assessment and Plan (Free Text) Plan: Increase UF goal with HD Will arrange for HD
--- NOTE | 2018-01-25 18:49 | CP.PCM.PN ---
Subjective - Date & Time of Evaluation Date of Evaluation: 01/25/18 Time of Evaluation: 11:00 - Subjective Subjective: clinically same Objective - Vital Signs/Intake and Output Vital Signs (last 24 hours): Temp Pulse Resp BP Pulse Ox 97.5 F L 71 20 158/89 H 95 01/25/18 09:01 01/25/18 09:01 01/25/18 09:01 01/25/18 18:04 01/25/18 09:01 - Medications Medications: Current Medications Amlodipine Besylate (Norvasc) 5 mg PO DAILY [facility] Last Admin: 01/25/18 09:30 Dose: 5 mg Aspirin (Aspirin) 325 mg PO DAILY [facility] Last Admin: 01/25/18 09:45 Dose: 325 mg Calcium Acetate (Phoslo) 1,334 mg PO TIDCC [facility] Last Admin: 01/25/18 18:00 Dose: 1,334 mg Clopidogrel Bisulfate (Plavix) 75 mg PO DAILY [facility] Last Admin: 01/25/18 09:30 Dose: 75 mg Epoetin Phil (Procrit) 10,000 unit IV TTS [facility] Famotidine (Pepcid) 20 mg PO DAILY [facility] Last Admin: 01/25/18 09:30 Dose: 20 mg Gabapentin (Neurontin) 300 mg PO DAILY [facility] Last Admin: 01/25/18 09:30 Dose: 300 mg Isosorbide Dinitrate (Isordil) 20 mg PO DAILY [facility] Last Admin: 01/25/18 09:43 Dose: 20 mg Loperamide HCl (Imodium) 2 mg PO TID PRN PRN Reason: Diarrhea Metoprolol Tartrate (Lopressor) 25 mg PO BID [facility] Last Admin: 01/25/18 18:04 Dose: 25 mg Oxycodone/Acetaminophen (Percocet 5/325 Mg Tab) 1 tab PO Q4H PRN PRN Reason: Pain Stop: 01/27/18 19:03 Last Admin: 01/25/18 18:08 Dose: 1 tab Sevelamer Carbonate (Renvela) 2,400 mg PO TIDCC [facility] Last Admin: 01/25/18 18:00 Dose: 2,400 mg Sucralfate (Carafate Tab) 1 gm PO TID [facility] Last Admin: 01/25/18 18:03 Dose: 1 gm - Labs Labs: 11/08/18 17:33 01/24/18 17:33 PT 11.9 SECONDS (9.7-12.2) 01/24/18 18:10 INR 1.1 01/24/18 18:10 APTT 24 SECONDS (21-34) 01/24/18 18:10 - Constitutional Appears: Well - Head Exam Head Exam: ATRAUMATIC, NORMAL INSPECTION, NORMOCEPHALIC - Eye Exam Eye Exam: EOMI, Normal appearance, PERRL Pupil Exam: NORMAL ACCOMODATION, PERRL - ENT Exam ENT Exam: Mucous Membranes Moist, Normal Exam - Neck Exam Neck Exam: Full ROM, Normal Inspection. absent: Lymphadenopathy - Respiratory Exam Respiratory Exam: Decreased Breath Sounds - Cardiovascular Exam Cardiovascular Exam: REGULAR RHYTHM, +S1, +S2 - GI/Abdominal Exam GI & Abdominal Exam: Soft, Diminished Bowel Sounds - Rectal Exam Rectal Exam: Deferred
--- NOTE | 2018-01-25 23:42 | CARD ---
APPROVED REPORT Date of service: 01/24/2018 EKG Measurement Heart [id number] <Conclusion> Atrial fibrillation with rapid ventricular response Right bundle branch block T wave abnormality, consider inferolateral ischemia Abnormal ECG
[2018-01-26] MEDS: Oxycodone/Acetaminophen 5/325 mg Tab PO PRN ×5 (04:50→20:20)
[2018-01-26 07:59] LABS: BASO % 0.3 % (0.0-2.0); EOS # 0.1 K/uL (0.0-0.7); EOS % 1.9 % (0.0-4.0); LYMPH # 1.2 K/uL (1.0-4.3); LYMPH % 29.4 % (20.0-40.0); MEAN CELL VOLUME 99.6 fL (81.0-99.0); MEAN CORPUSCULAR HEMOGLOBIN 32.6 pg (27.0-31.0); MEAN CORPUSCULAR HGB CONC 32.7 g/dL (33.0-37.0); MEAN PLATELET VOLUME 8.8 fL (7.2-11.7); MONO # 0.4 K/uL (0.0-0.8); MONO % 9.6 % (0.0-10.0); NEUT # 2.4 K/uL (1.8-7.0); NEUT % 58.8 % (50.0-75.0); RBC 3.38 Mil/uL (3.80-5.20); RED CELL DISTRIBUTION WIDTH 16.6 % (11.5-14.5); WHITE BLOOD COUNT 4.1 K/uL (4.8-10.8)
[2018-01-26 08:21] LABS: ALB/GLOB RATIO 0.9 (1.0-2.1); ALBUMIN 3.8 g/dL (3.5-5.0); CALCIUM 7.3 mg/dl (8.6-10.4)
--- NOTE | 2018-01-26 09:59 | CP.PCM.PN ---
Subjective - Date & Time of Evaluation Date of Evaluation: 01/26/18 Time of Evaluation: 09:57 - Subjective Subjective: pt seen and examined finished breakfast feels well no complaints no more chest pain ROS- as per HPI, other than that 10 point ROS negative Objective - Vital Signs/Intake and Output Vital Signs (last 24 hours): Temp Pulse Resp BP Pulse Ox 98.1 F 61 20 120/68 100 01/26/18 07:40 01/26/18 07:40 01/26/18 07:40 01/26/18 09:14 01/26/18 07:40 - Medications Medications: Current Medications Amlodipine Besylate (Norvasc) 5 mg PO DAILY [facility] Last Admin: 01/26/18 09:15 Dose: 5 mg Aspirin (Aspirin) 325 mg PO DAILY [facility] Last Admin: 01/26/18 09:13 Dose: 325 mg Calcium Acetate (Phoslo) 1,334 mg PO TIDCC [facility] Last Admin: 01/26/18 09:15 Dose: 1,334 mg Clopidogrel Bisulfate (Plavix) 75 mg PO DAILY [facility] Last Admin: 01/26/18 09:14 Dose: 75 mg Epoetin Phil (Procrit) 10,000 unit IV TTS [facility] Famotidine (Pepcid) 20 mg PO DAILY [facility] Last Admin: 01/26/18 09:15 Dose: 20 mg Gabapentin (Neurontin) 300 mg PO DAILY [facility] Last Admin: 01/26/18 09:14 Dose: 300 mg Isosorbide Dinitrate (Isordil) 20 mg PO DAILY [facility] Last Admin: 01/26/18 09:27 Dose: 20 mg Loperamide HCl (Imodium) 2 mg PO TID PRN PRN Reason: Diarrhea Metoprolol Tartrate (Lopressor) 25 mg PO BID [facility] Last Admin: 01/26/18 09:14 Dose: 25 mg Oxycodone/Acetaminophen (Percocet 5/325 Mg Tab) 1 tab PO Q4H PRN PRN Reason: Pain Stop: 01/27/18 19:03 Last Admin: 01/26/18 09:45 Dose: 1 tab Sevelamer Carbonate (Renvela) 2,400 mg PO TIDCC [facility] Last Admin: 01/26/18 09:45 Dose: 2,400 mg Sucralfate (Carafate Tab) 1 gm PO TID [facility] Last Admin: 01/26/18 09:13 Dose: 1 gm - Labs Labs: 01/26/18 07:42 01/26/18 07:42 PT 11.9 SECONDS (9.7-12.2) 01/24/18 18:10 INR 1.1 01/24/18 18:10 APTT 24 SECONDS (21-34) 01/24/18 18:10 - Constitutional Appears: Non-toxic, Chronically Ill - Head Exam Head Exam: ATRAUMATIC, NORMOCEPHALIC - Eye Exam Eye Exam: PERRL - ENT Exam ENT Exam: Mucous Membranes Moist - Neck Exam Neck Exam: Full ROM - Respiratory Exam Respiratory Exam: Clear to Ausculation Bilateral. absent: Rhonchi, Wheezes - Cardiovascular Exam Cardiovascular Exam: REGULAR RHYTHM, +S1, +S2 - GI/Abdominal Exam GI & Abdominal Exam: Soft. absent: Tenderness - Extremities Exam Extremities Exam: absent: Pedal Edema Additional comments: skin tightening - Neurological Exam Neurological Exam: Alert, Awake, Oriented x3 - Psychiatric Exam Psychiatric exam: Normal Affect, Normal Mood - Skin Skin Exam: Dry, Warm Assessment and Plan (1) Chest pain Status: Acute (2) Nephrogenic systemic fibrosis Status: Acute (3) CHF (congestive heart failure) Status: Acute (4) COPD (chronic obstructive pulmonary disease) Status: Acute (5) ESRD (end stage renal disease) Status: Acute - Assessment and Plan (Free Text) Plan: HD today BP stable no more chest pain stable renal lemos
[2018-01-26] MEDS ORDERED: Epoetin Alfa 10,000 unit/ml Dialysis IV SCH ×2 (10:00)
[2018-01-26 14:58] VITALS: PULSE 60
[2018-01-26 16:07] VITALS: BP 118/76; RESP 20; TEMP 97.3; O2SAT 100
--- NOTE | 2018-01-26 19:49 | CP.PCM.PN ---
Subjective - Date & Time of Evaluation Date of Evaluation: 01/26/18 Time of Evaluation: 10:15 - Subjective Subjective: clinically same Objective - Vital Signs/Intake and Output Vital Signs (last 24 hours): Temp Pulse Resp BP Pulse Ox 97.3 F L 60 20 118/76 100 01/26/18 15:00 01/26/18 15:00 01/26/18 15:00 01/26/18 17:29 01/26/18 15:00 - Medications Medications: Current Medications Amlodipine Besylate (Norvasc) 5 mg PO DAILY [facility] Last Admin: 01/26/18 09:15 Dose: 5 mg Aspirin (Aspirin) 325 mg PO DAILY [facility] Last Admin: 01/26/18 09:13 Dose: 325 mg Calcium Acetate (Phoslo) 1,334 mg PO TIDCC [facility] Last Admin: 01/26/18 17:28 Dose: 1,334 mg Clopidogrel Bisulfate (Plavix) 75 mg PO DAILY [facility] Last Admin: 01/26/18 09:14 Dose: 75 mg Famotidine (Pepcid) 20 mg PO DAILY [facility] Last Admin: 01/26/18 09:15 Dose: 20 mg Gabapentin (Neurontin) 300 mg PO DAILY [facility] Last Admin: 01/26/18 09:14 Dose: 300 mg Isosorbide Dinitrate (Isordil) 20 mg PO DAILY [facility] Last Admin: 01/26/18 09:27 Dose: 20 mg Loperamide HCl (Imodium) 2 mg PO TID PRN PRN Reason: Diarrhea Metoprolol Tartrate (Lopressor) 25 mg PO BID [facility] Last Admin: 01/26/18 17:29 Dose: 25 mg Oxycodone/Acetaminophen (Percocet 5/325 Mg Tab) 1 tab PO Q4H PRN PRN Reason: Pain Stop: 01/27/18 19:03 Last Admin: 01/26/18 16:50 Dose: 1 tab Sevelamer Carbonate (Renvela) 2,400 mg PO TIDCC [facility] Last Admin: 01/26/18 17:43 Dose: Not Given Sucralfate (Carafate Tab) 1 gm PO TID [facility] Last Admin: 01/26/18 17:29 Dose: 1 gm - Labs Labs: 01/26/18 07:42 01/26/18 07:42 PT 11.9 SECONDS (9.7-12.2) 01/24/18 18:10 INR 1.1 01/24/18 18:10 APTT 24 SECONDS (21-34) 01/24/18 18:10 - Constitutional Appears: Well - Head Exam Head Exam: ATRAUMATIC, NORMAL INSPECTION, NORMOCEPHALIC - Eye Exam Eye Exam: EOMI, Normal appearance, PERRL Pupil Exam: NORMAL ACCOMODATION, PERRL - ENT Exam ENT Exam: Mucous Membranes Moist, Normal Exam - Neck Exam Neck Exam: Full ROM, Normal Inspection. absent: Lymphadenopathy - Respiratory Exam Respiratory Exam: Decreased Breath Sounds - Cardiovascular Exam Cardiovascular Exam: REGULAR RHYTHM, +S1, +S2 - GI/Abdominal Exam GI & Abdominal Exam: Soft, Diminished Bowel Sounds - Rectal Exam Rectal Exam: Deferred
== END 2018-01-26 20:45 | disposition home or self-care (01) | DRG 308 ==
LOC: C.ER 16:27 → C.9E 17:25 → C.6T 18:03
PROVIDERS: ADMIT Internal Medicine Nephrology; ATTEND Internal Medicine Nephrology
PROC: 5A1D70Z Performance of Urinary Filtration, Intermittent, Less than 6 Hours Per Day (ICD-10-PCS; principal; 2018-01-26)
DX: I48.91 Unspecified atrial fibrillation (principal); N18.6 End stage renal disease; I13.2 Hypertensive heart and chronic kidney disease with heart failure and with stage 5 chronic kidney disease, or end stage renal disease; R07.89 Other chest pain; I50.9 Heart failure, unspecified; I25.10 Atherosclerotic heart disease of native coronary artery without angina pectoris; M34.9 Systemic sclerosis, unspecified; J44.9 Chronic obstructive pulmonary disease, unspecified; L90.8 Other atrophic disorders of skin; E78.5 Hyperlipidemia, unspecified; H40.9 Unspecified glaucoma; M81.0 Age-related osteoporosis without current pathological fracture; Z99.2 Dependence on renal dialysis; Z95.0 Presence of cardiac pacemaker; Z87.442 Personal history of urinary calculi; Z90.49 Acquired absence of other specified parts of digestive tract

== ENCOUNTER 2018-03-03 15:12 | Inpatient (IN) | payer MEDICARE, OTHER ==
[2018-03-03 15:12] VITALS: PULSE 146; BMI 22.3
[2018-03-03] MEDS ORDERED: Sodium Chloride 0.9% 300 ML IV ONE ×2 (15:33→16:01)
--- NOTE | 2018-03-03 15:43 | C.PDOC ---
History Of Present Illness 68-year-old female with a history of end stage renal disease and atrial fibrillation represents to the ED via EMS for evaluation of mid-sternal chest pain that began a few days ago. Patient reports the chest pain is worse today. EMS administered Aspirin. She denies fever, nausea, vomiting, shortness of breath, and any other associated symptoms. Chief Complaint (Nursing): Chest Pain History Per: Patient History/Exam Limitations: no limitations Onset/Duration Of Symptoms: Days Current Symptoms Are (Timing): Still Present Recent travel outside of the [place]: No Past Medical History Reviewed: Historical Data, Nursing Documentation, Vital Signs Vital Signs: Last Vital Signs Temp 97.7 F 03/03/18 15:21 Pulse 113 H 03/03/18 15:21 Resp 20 03/03/18 15:21 BP 87/64 L 03/03/18 15:21 Pulse Ox 100 03/03/18 15:21 - Medical History PMH: Anemia, Arthritis, Asthma, Atrial Fibrillation, CAD, Cardia Arrhythmia, CHF (A-fib, CAD), COPD, Depression, HTN, Hyperlipidemia, Kidney Stones, Migraine, Osteoporosis, Pancreatitis, Peripheral Edema, End Stage Renal Disease, Chronic Kidney Disease Denies: Hypercholesterolemia, Rheumatoid Arthritis, Sexually Transmitted Disease Surgical History: Cholecystectomy, Endoscopy, Pacemaker - [facility] Procedures (01/24/18) ANGIOPLASTY OF OTHER NON-CORONARY VESSEL(S) (12/04/13) DIALYSIS ARTERIOVENOSTOM (12/04/13) DRAINAGE OF LEFT PLEURAL CAVITY, PERCUTANEOUS APPROACH (09/01/16) FLEXIBLE SIGMOIDOSCOPY (07/30/14) FLUOROSCOPY OF LEFT HEART USING LOW OSMOLAR CONTRAST (02/01/16) FLUOROSCOPY OF MULT COR ART USING L OSM CONTRAST (02/01/16) HEMODIALYSIS (09/30/14) INSEJ [id number] PERIPHERAL NON-CORONARY VES STENT(S) (12/04/13) INSERTION OF ONE VASCULAR STENT (12/04/13) MEASURE OF CARDIAC SAMPL & PRESSURE, L HEART, PERC APPROACH (02/01/16) OTHER ENDOSCOPY OF SM INTEST (07/30/14) PACKED CELL TRANSFUSION (09/30/14) PERFORMANCE OF URINARY FILTRATION, MULTIPLE (10/16/16) PERFORMANCE OF URINARY FILTRATION, SINGLE (09/28/16) PROCEDURE ON SINGLE VESSEL (12/04/13) RESPIRATORY VENTILATION, GREATER THAN 96 CONSECUTIVE HOURS (09/01/16) TRANSFUSE NONAUT PLATELETS IN PERIPH VEIN, PERC (09/01/16) VASC PROC REVISION NEC (12/04/13) VENOUS CATHETERIZATION FOR RENAL DIALYSIS (12/04/13) Family History: States: Unknown Family Hx - Social History Hx Tobacco Use: No Hx Alcohol Use: No Hx Substance Use: No - Immunization History Hx Tetanus Toxoid Vaccination: Yes Hx Influenza Vaccination: Yes Hx Pneumococcal Vaccination: Yes Review Of Systems Except As Marked, All Systems Reviewed And Found Negative. Constitutional: Negative for: Fever Respiratory: Negative for: Shortness of Breath Gastrointestinal: Negative for: Nausea, Vomiting Musculoskeletal: Positive for: Other (mid-sternal chest pain.) Physical Exam - Physical Exam Appears: Well, Non-toxic, No Acute Distress Skin: Warm, Dry, Other (chronic skin discoloration of the feet and hands.) Head: Atraumatic, Normacephalic Eye(s): bilateral: Normal Inspection Oral Mucosa: Dry Neck: Normal ROM, Supple Chest: Symmetrical, No Deformity Cardiovascular: No Rhythm Regular, Rhythm Irregular, No Murmur, Other (irregular irregular tachycardia.) Respiratory: Normal Breath Sounds, No Rales, No Rhonchi, No Wheezing Gastrointestinal/Abdominal: Normal Exam, No Soft, Tenderness Neurological/Psych: Oriented x3, Normal Speech, Normal Cognition ED Course And Treatment - Laboratory Results Result Diagrams: 03/03/18 15:54 03/03/18 15:54 ECG Rhythm: Atrial Fibrillation, R BBB Interpretation Of ECG: No specific T wave abnormalities. No change from 01-24-18 EKG. Rate From EC O2 Sat by Pulse Oximetry: 100 (RA) Pulse Ox Interpretation: Normal - Other Rad CXR X-Ray: Interpreted by Me, Viewed By Me Interpretation: Cardiomegaly. Small pleural effusion. No infiltrates Medical Decision Making Medical Decision Making: Plan: -EKG -Blood sent. -CXR Progress/Update: 4:14pm: Spoke with Dr. Carina Newell who agreed to admit the patient. Disposition - Disposition Disposition: HOSPITALIZED Disposition Time: 16:27 Condition: STABLE - Clinical Impression Clinical Impression: Chest pain, Rapid atrial fibrillation, ESRD (end stage renal disease), Hypotension - Scribe Statement The provider has reviewed the documentation as recorded by the Scribe (Nallely Frost) Provider Attestation: All medical record entries made by the Scribe were at my direction and personally dictated by me. I have reviewed the chart and agree that the record accurately reflects my personal performance of the history, physical exam, medical decision making, and the department course for this patient. I have also personally directed, reviewed, and agree with the discharge instructions and disposition. Decision To Admit - Pt Status Changed To: Hospital Disposition Of: Inpatient - Admit Certification Admit to Inpatient:: After my assessment, the patient will require hospitalization for at least two midnights. This is because of the severity of symptoms shown, intensity of services needed, and/or the medical risk in this patient being treated as an outpatient. - InPatient: Physician Admission Certification: I certify that this patient requires 2 or more midnights of care for the following reason:: Hypotension, rapid atrial fibrilation - . Bed Request Type: Telemetry Admitting Physician: Porsha Newell Patient Diagnosis: Chest pain, Rapid atrial fibrillation, ESRD (end stage renal disease), Hypotension
[2018-03-03 15:59] LABS: BASO % 0.4 % (0.0-2.0); EOS # 0.1 K/uL (0.0-0.7); EOS % 1.3 % (0.0-4.0); HEMOGLOBIN 13.2 g/dL (11.0-16.0); LYMPH # 1.1 K/uL (1.0-4.3); LYMPH % 26.5 % (20.0-40.0); MEAN CELL VOLUME 101.1 fL (81.0-99.0); MEAN CORPUSCULAR HEMOGLOBIN 32.9 pg (27.0-31.0); MEAN CORPUSCULAR HGB CONC 32.5 g/dL (33.0-37.0); MEAN PLATELET VOLUME 8.7 fL (7.2-11.7); MONO # 0.4 K/uL (0.0-0.8); MONO % 10.3 % (0.0-10.0); NEUT # 2.6 K/uL (1.8-7.0); NEUT % 61.5 % (50.0-75.0); NRBC % 0.1 % (0.0-2.0); RBC 4.02 Mil/uL (3.80-5.20); RED CELL DISTRIBUTION WIDTH 15.5 % (11.5-14.5); WHITE BLOOD COUNT 4.3 K/uL (4.8-10.8)
[2018-03-03] MEDS ORDERED: Sodium Chloride 0.9% 500 ML IV ONE (16:01)
[2018-03-03 16:12] LABS: ALB/GLOB RATIO 0.9 (1.0-2.1); ALBUMIN 4.4 g/dL (3.5-5.0); CALCIUM 7.2 mg/dl (8.6-10.4)
[2018-03-03 16:23] LABS: TROPONIN I 0.019 ng/mL (0.00-0.120)
--- NOTE | 2018-03-03 16:34 | RAD ---
Date of service: 03/03/2018 PROCEDURE: CHEST RADIOGRAPH, 1 VIEW HISTORY: chest pain COMPARISON: Comparison is made with 01/24/2018 FINDINGS: LUNGS: Bibasilar opacities are noted likely atelectasis. Interval improvement in the previously seen lung congestion PLEURA: P bilateral pleural effusion CARDIOVASCULAR: No aortic atherosclerotic calcification present. Mild cardiomegaly is noted. Left-sided pacemaker seen in place. OSSEOUS STRUCTURES: No significant abnormalities. VISUALIZED UPPER ABDOMEN: Normal. OTHER FINDINGS: None. IMPRESSION: Bibasilar opacities and small bilateral pleural effusions.
[2018-03-03] MEDS ORDERED: Sodium Chloride 0.9% 250 ML IV ONE (17:26)
[2018-03-03] MEDS ORDERED: Oxycodone/Acetaminophen 5/325 mg Tab PO STA (17:40)
[2018-03-03] MEDS ORDERED: Oxycodone/Acetaminophen 5/325 mg Tab ONE (17:53)
[2018-03-03] MEDS: Oxycodone/Acetaminophen 5/325 mg Tab PO PRN (21:32)
--- NOTE | 2018-03-03 23:29 | CP.PCM.HP ---
Past Patient History - Infectious Disease Hx of Infectious Diseases: None - Tetanus Immunizations Tetanus Immunization: Unknown - Past Medical History & Family History Past Medical History?: Yes - Past Social History Smoking Status: Never Smoked - CARDIAC Hx Cardiac Disorders: Yes Hx Atrial Fibrillation: Yes Hx Cardia Arrhythmia: Yes Hx Congestive Heart Failure: Yes (A-fib, CAD) Hx Hypercholesterolemia: No Hx Hypertension: Yes Hx Pacemaker: Yes Hx Peripheral Edema: Yes - PULMONARY Hx Respiratory Disorders: Yes Hx Asthma: Yes Hx Chronic Obstructive Pulmonary Disease (COPD): Yes - NEUROLOGICAL Hx Neurological Disorder: Yes Hx Migraine: Yes - HEENT Hx HEENT Problems: Yes Hx Glaucoma: Yes (rt eye) - RENAL Hx Chronic Kidney Disease: Yes Hx Dialysis: Yes Type of Dialysis Access: right AV shunt Date of Last Dialysis Treatment: 03/02/18 - ENDOCRINE/METABOLIC Hx Endocrine Disorders: No - HEMATOLOGICAL/ONCOLOGICAL Hx Blood Disorders: Yes Hx Anemia: Yes - INTEGUMENTARY Hx Dermatological Problems: Yes Other/Comment: Scleroderma of both arms/both legs - MUSCULOSKELETAL/RHEUMATOLOGICAL Hx Musculoskeletal Disorders: No Hx Falls: No - GASTROINTESTINAL Hx Gastrointestinal Disorders: Yes Hx Constipation: Yes Hx Pancreatitis: Yes - GENITOURINARY/GYNECOLOGICAL Hx Genitourinary Disorders: No Hx Sexually Transmitted Disorders: No - PSYCHIATRIC Hx Psychophysiologic Disorder: No Hx Substance Use: No - SURGICAL HISTORY Hx Surgeries: Yes Hx Cholecystectomy: Yes - ANESTHESIA Hx Anesthesia: Yes Hx Anesthesia Reactions: No Hx Malignant Hyperthermia: No Has any member of the family had a problem w/ anesthesia?: No Meds Allergies/Adverse Reactions: Allergies Allergy/AdvReac Type Severity Reaction Status Date / Time vancomycin Allergy Severe ITCHING Verified 03/03/18 15:24 azithromycin Allergy ITCHING Verified 03/03/18 15:24 budesonide [From Symbicort] Allergy ITCHING Verified 03/03/18 15:24 formoterol [From Symbicort] Allergy ITCHING Verified 03/03/18 15:24 Results - Vital Signs Recent Vital Signs: Last Vital Signs Temp 98.1 F 03/03/18 23:21 Pulse 65 03/03/18 23:21 Resp 20 03/03/18 23:21 BP 98/56 L 03/03/18 23:21 Pulse Ox 100 03/03/18 23:21 - Labs Result Diagrams: 03/03/18 15:54 03/03/18 15:54 Labs: Laboratory Results - last 24 hr 03/03/18 03/03/18 15:54 15:54 WBC 4.3 L RBC 4.02 Hgb 13.2 D Hct 40.7 MCV 101.1 H MCH 32.9 H MCHC 32.5 L RDW 15.5 H Plt Count 119 L D MPV 8.7 Neut % (Auto) 61.5 Lymph % (Auto) 26.5 [place] % (Auto) 10.3 H Eos % (Auto) 1.3 Baso % (Auto) 0.4 Neut # (Auto) 2.6 Lymph # (Auto) 1.1 [place] # (Auto) 0.4 Eos # (Auto) 0.1 Baso # (Auto) 0.0 Sodium 137 Potassium 4.1 Chloride 88 L Carbon Dioxide 30 Anion Gap 23 H BUN 44 H Creatinine 4.5 H Est GFR ( Amer) 12 Est GFR (Non-Af Amer) 10 Random Glucose 105 Calcium 7.2 L Total Bilirubin 0.9 AST 49 H D ALT 33 Alkaline Phosphatase 335 H D Troponin I 0.0190 Total Protein 9.0 H Albumin 4.4 Globulin 4.7 H Albumin/Globulin Ratio 0.9 L
[2018-03-04 01:03] LABS: CK-MB 1.04 ng/mL (0.0-3.38)
[2018-03-04 01:06] LABS: TROPONIN I 0.021 ng/mL (0.00-0.120)
[2018-03-04] MEDS: Oxycodone/Acetaminophen 5/325 mg Tab PO PRN ×4 (02:35→21:40)
--- NOTE | 2018-03-04 08:52 | CP.PCM.CON ---
History of Present Illness - History of Present Illness History of Present Illness: Evaluation for chest pain HPI: 68 year old female with hx of ESRD on HD presenting with c/o CP x few days. Cardiac hx cath in 2016 - normal coronaries Cardiologists - pt seen by in 2017 and in 2013 Review of Systems - Review of Systems Systems not reviewed;Unavailable: Acuity of Condition - Constitutional Constitutional: As Per HPI - EENT Eyes: As Per HPI Ears: As Per HPI Nose/Mouth/Throat: As Per HPI - Breasts Breasts: As Per HPI - Cardiovascular Cardiovascular: As Per HPI - Respiratory Respiratory: As Per HPI - Gastrointestinal Gastrointestinal: As Per HPI - Genitourinary Genitourinary: As Per HPI - Reproductive: Female Reproductive:Female: As Per HPI - Menstruation Menstruation: As Per HPI - Musculoskeletal Musculoskeletal: As Per HPI - Integumentary Integumentary: As Per HPI - Neurological Neurological: As Per HPI - Psychiatric Psychiatric: As Per HPI - Endocrine Endocrine: As Per HPI - Hematologic/Lymphatic Hematologic: As Per HPI Past Patient History - Infectious Disease Hx of Infectious Diseases: None - Tetanus Immunizations Tetanus Immunization: Unknown - Past Medical History & Family History Past Medical History?: Yes - Past Social History Smoking Status: Never Smoked - CARDIAC Hx Cardiac Disorders: Yes Hx Atrial Fibrillation: Yes Hx Cardia Arrhythmia: Yes Hx Congestive Heart Failure: Yes (A-fib, CAD) Hx Hypercholesterolemia: No Hx Hypertension: Yes Hx Pacemaker: Yes Hx Peripheral Edema: Yes - PULMONARY Hx Respiratory Disorders: Yes Hx Asthma: Yes Hx Chronic Obstructive Pulmonary Disease (COPD): Yes - NEUROLOGICAL Hx Neurological Disorder: Yes Hx Migraine: Yes - HEENT Hx HEENT Problems: Yes Hx Glaucoma: Yes (rt eye) - RENAL Hx Chronic Kidney Disease: Yes Hx Dialysis: Yes Type of Dialysis Access: right AV shunt Date of Last Dialysis Treatment: 03/02/18 - ENDOCRINE/METABOLIC Hx Endocrine Disorders: No - HEMATOLOGICAL/ONCOLOGICAL Hx Blood Disorders: Yes Hx Anemia: Yes - INTEGUMENTARY Hx Dermatological Problems: Yes Other/Comment: Scleroderma of both arms/both legs - MUSCULOSKELETAL/RHEUMATOLOGICAL Hx Musculoskeletal Disorders: No Hx Falls: No - GASTROINTESTINAL Hx Gastrointestinal Disorders: Yes Hx Constipation: Yes Hx Pancreatitis: Yes - GENITOURINARY/GYNECOLOGICAL Hx Genitourinary Disorders: No Hx Sexually Transmitted Disorders: No - PSYCHIATRIC Hx Psychophysiologic Disorder: No Hx Substance Use: No - SURGICAL HISTORY Hx Surgeries: Yes Hx Cholecystectomy: Yes - ANESTHESIA Hx Anesthesia: Yes Hx Anesthesia Reactions: No Hx Malignant Hyperthermia: No Has any member of the family had a problem w/ anesthesia?: No Meds Allergies/Adverse Reactions: Allergies Allergy/AdvReac Type Severity Reaction Status Date / Time vancomycin Allergy Severe ITCHING Verified 03/03/18 15:24 azithromycin Allergy ITCHING Verified 03/03/18 15:24 budesonide [From Symbicort] Allergy ITCHING Verified 03/03/18 15:24 formoterol [From Symbicort] Allergy ITCHING Verified 03/03/18 15:24 - Medications Medications: Current Medications Aspirin (Aspirin) 325 mg PO DAILY [facility] Calcium Acetate (Phoslo) 1,334 mg PO TIDCC [facility] Clopidogrel Bisulfate (Plavix) 75 mg PO DAILY [facility] Famotidine (Pepcid) 20 mg PO DAILY [facility] Gabapentin (Neurontin) 300 mg PO DAILY [facility] Heparin Sodium (Porcine) (Heparin) 5,000 units SC Q12 [facility] Oxycodone/Acetaminophen (Percocet 5/325 Mg Tab) 1 tab PO Q4H PRN PRN Reason: Pain, moderate (4-7) Stop: 03/06/18 19:29 Last Admin: 03/04/18 02:35 Dose: 1 tab Oxycodone/Acetaminophen (Percocet 5/325 Mg Tab) 2 tab PO Q6H PRN PRN Reason: Pain, severe (8-10) Stop: 03/06/18 21:19 Last Admin: 03/04/18 04:31 Dose: 2 tab Sevelamer Carbonate (Renvela) 2,400 mg PO TID [facility] Sucralfate (Carafate Tab) 1 gm PO TID [facility] Physical Exam - Constitutional Appears: Well - Head Exam Head Exam: ATRAUMATIC, NORMAL INSPECTION, NORMOCEPHALIC - Eye Exam Eye Exam: EOMI, Normal appearance, PERRL Pupil Exam: NORMAL ACCOMODATION, PERRL - ENT Exam ENT Exam: Mucous Membranes Moist, Normal Exam - Neck Exam Neck exam: Positive for: Normal Inspection - Respiratory Exam Respiratory Exam: Clear to Auscultation Bilateral, NORMAL BREATHING PATTERN - Cardiovascular Exam Cardiovascular Exam: REGULAR RHYTHM - GI/Abdominal Exam GI & Abdominal Exam: Normal Bowel Sounds, Soft. absent: Tenderness - Extremities Exam Extremities exam: Positive for: normal inspection - Back Exam Back exam: NORMAL INSPECTION - Neurological Exam Neurological exam: Alert, CN II-XII Intact, Normal Gait, Oriented x3, Reflexes Normal - Psychiatric Exam Psychiatric exam: Normal Affect, Normal Mood - Skin Skin Exam: Dry, Intact, Normal Color, Warm Results - Vital Signs Recent Vital Signs: Last Vital Signs Temp 97.7 F 03/04/18 07:00 Pulse 64 03/04/18 08:27 Resp 20 03/04/18 07:00 BP 112/58 L 03/04/18 07:00 Pulse Ox 99 03/04/18 07:00 - Labs Result Diagrams: 03/03/18 15:54 03/03/18 15:54 Labs: Laboratory Results - last 24 hr 03/03/18 03/03/18 03/04/18 15:54 15:54 00:35 WBC 4.3 L RBC 4.02 Hgb 13.2 D Hct 40.7 MCV 101.1 H MCH 32.9 H MCHC 32.5 L RDW 15.5 H Plt Count 119 L D MPV 8.7 Neut % (Auto) 61.5 Lymph % (Auto) 26.5 [place] % (Auto) 10.3 H Eos % (Auto) 1.3 Baso % (Auto) 0.4 Neut # (Auto) 2.6 Lymph # (Auto) 1.1 [place] # (Auto) 0.4 Eos # (Auto) 0.1 Baso # (Auto) 0.0 Sodium 137 Potassium 4.1 Chloride 88 L Carbon Dioxide 30 Anion Gap 23 H BUN 44 H Creatinine 4.5 H Est GFR ( Amer) 12 Est GFR (Non-Af Amer) 10 Random Glucose 105 Calcium 7.2 L Total Bilirubin 0.9 AST 49 H D ALT 33 Alkaline Phosphatase 335 H D Total Creatine Kinase 32 CK-MB (Mass) 1.04 Troponin I 0.0190 0.0210 Total Protein 9.0 H Albumin 4.4 Globulin 4.7 H Albumin/Globulin Ratio 0.9 L Assessment & Plan (1) Chest pain Status: Acute (2) End stage renal disease Status: Acute (3) Rapid atrial fibrillation Status: Acute (4) Anemia Status: Acute (5) CHF (congestive heart failure) Status: Acute
--- NOTE | 2018-03-04 12:57 | CP.PCM.CON ---
History of Present Illness - History of Present Illness History of Present Illness: 68-year-old female with a history of end stage renal disease and atrial fibrillation represents to the ED via EMS for evaluation of mid-sternal chest pain that began a few days ago. Patient reports the chest pain is worse today. EMS administered Aspirin. She denies fever, nausea, vomiting, shortness of breath, and any other associated symptoms. Chief Complaint (Nursing): Chest Pain Past Medical History Reviewed: Historical Data, Nursing Documentation, Vital Signs Vital Signs: Last Vital Signs Temp 97.7 F 03/03/18 15:21 Pulse 113 H 03/03/18 15:21 Resp 20 03/03/18 15:21 BP 87/64 L 03/03/18 15:21 Pulse Ox 100 03/03/18 15:21 - Medical History PMH: Anemia, Arthritis, Asthma, Atrial Fibrillation, Cardiac Arrhythmia, CHF (A- fib, CAD), COPD, Depression, HTN, Hyperlipidemia, Migraine, severe secondary HPT, End Stage Renal Disease, systemic fibrosing dermopathy Denies: Hypercholesterolemia, Rheumatoid Arthritis, Sexually Transmitted Disease Surgical History: Cholecystectomy, Endoscopy, Pacemaker, AV grafts x 2 2 failed kidney transplants Review of Systems - Constitutional Constitutional: Lethargy, Weakness - EENT Eyes: absent: As Per HPI, Blind Spots, Blurred Vision, Change in Vision, Decreased Night Vision, Diplopia, Discharge, Dry Eye, Exophthalmos, Floaters, Irritation, Itchy Eyes, Loss of Peripheral Vision, Pain, Photophobia, Requires Corrective Lenses, Sees Flashes, Spots in Vision, Tunnel Vision, Other Visual Disturbances, Loss of Vision, Other Ears: absent: As Per HPI, Decreased Hearing, Ear Discharge, Ear Pain, Tinnitus, Abnormal Hearing, Disequilibrium, Dizziness, Other Nose/Mouth/Throat: absent: As Per HPI, Epistaxis, Nasal Congestion, Nasal Discharge, Nasal Obstruction, Nasal Trauma, Nose Pain, Post Nasal Drip, Sinus Pain, Sinus Pressure, Bleeding Gums, Change in Voice, Dental Pain, Dry Mouth, Dysphagia, Halitosis, Hoarsness, Lip Swelling, Mouth Lesions, Mouth Pain, Odynophagia, Sore Throat, Throat Swelling, Tongue Swelling, Facial Pain, Neck Pain, Neck Mass, Other - Cardiovascular Cardiovascular: Chest Pain with Activity, Dyspnea on Exertion, Rapid Heart Rate - Respiratory Respiratory: Dyspnea on Exertion - Gastrointestinal Gastrointestinal: Constipation - Genitourinary Genitourinary: As Per HPI - Musculoskeletal Musculoskeletal: Muscle Cramps, Muscle Weakness, Myalgias - Integumentary Integumentary: As Per HPI - Neurological Neurological: Weakness Past Patient History - Infectious Disease Hx of Infectious Diseases: None - Tetanus Immunizations Tetanus Immunization: Unknown - Past Medical History & Family History Past Medical History?: Yes Past Family History: Reviewed and not pertinent - Past Social History Smoking Status: Never Smoked Chewing Tobacco Use: No Cigar Use: No Alcohol: None Drugs: Denies Home Situation {Lives}: Alone - CARDIAC Hx Cardiac Disorders: Yes Hx Atrial Fibrillation: Yes Hx Cardia Arrhythmia: Yes Hx Congestive Heart Failure: Yes (A-fib, CAD) Hx Hypercholesterolemia: No Hx Hypertension: Yes Hx Pacemaker: Yes Hx Peripheral Edema: Yes - PULMONARY Hx Respiratory Disorders: Yes Hx Asthma: Yes Hx Chronic Obstructive Pulmonary Disease (COPD): Yes - NEUROLOGICAL Hx Neurological Disorder: Yes Hx Migraine: Yes - HEENT Hx HEENT Problems: Yes Hx Glaucoma: Yes (rt eye) - RENAL Hx Chronic Kidney Disease: Yes Hx Dialysis: Yes Type of Dialysis Access: right AV shunt Date of Last Dialysis Treatment: 03/02/18 - ENDOCRINE/METABOLIC Hx Endocrine Disorders: No - HEMATOLOGICAL/ONCOLOGICAL Hx Blood Disorders: Yes Hx Anemia: Yes - INTEGUMENTARY Hx Dermatological Problems: Yes Other/Comment: Scleroderma of both arms/both legs - MUSCULOSKELETAL/RHEUMATOLOGICAL Hx Musculoskeletal Disorders: No Hx Falls: No - GASTROINTESTINAL Hx Gastrointestinal Disorders: Yes Hx Constipation: Yes Hx Pancreatitis: Yes - GENITOURINARY/GYNECOLOGICAL Hx Genitourinary Disorders: No Hx Sexually Transmitted Disorders: No - PSYCHIATRIC Hx Psychophysiologic Disorder: No Hx Substance Use: No - SURGICAL HISTORY Hx Surgeries: Yes Hx Cholecystectomy: Yes - ANESTHESIA Hx Anesthesia: Yes Hx Anesthesia Reactions: No Hx Malignant Hyperthermia: No Has any member of the family had a problem w/ anesthesia?: No Meds Allergies/Adverse Reactions: Allergies Allergy/AdvReac Type Severity Reaction Status Date / Time vancomycin Allergy Severe ITCHING Verified 03/03/18 15:24 azithromycin Allergy ITCHING Verified 03/03/18 15:24 budesonide [From Symbicort] Allergy ITCHING Verified 03/03/18 15:24 formoterol [From Symbicort] Allergy ITCHING Verified 03/03/18 15:24 - Medications Medications: Current Medications Aspirin (Aspirin) 325 mg PO DAILY [facility] Last Admin: 03/04/18 09:12 Dose: 325 mg Calcium Acetate (Phoslo) 1,334 mg PO TIDCC [facility] Last Admin: 03/04/18 12:05 Dose: Not Given Clopidogrel Bisulfate (Plavix) 75 mg PO DAILY [facility] Last Admin: 03/04/18 09:12 Dose: 75 mg Famotidine (Pepcid) 20 mg PO DAILY [facility] Last Admin: 03/04/18 09:12 Dose: 20 mg Gabapentin (Neurontin) 300 mg PO DAILY [facility] Last Admin: 03/04/18 09:12 Dose: 300 mg Heparin Sodium (Porcine) (Heparin) 5,000 units SC Q12 [facility] Last Admin: 03/04/18 09:19 Dose: 5,000 units Oxycodone/Acetaminophen (Percocet 5/325 Mg Tab) 1 tab PO Q4H PRN PRN Reason: Pain, moderate (4-7) Stop: 03/06/18 19:29 Last Admin: 03/04/18 02:35 Dose: 1 tab Oxycodone/Acetaminophen (Percocet 5/325 Mg Tab) 2 tab PO Q6H PRN PRN Reason: Pain, severe (8-10) Stop: 03/06/18 21:19 Last Admin: 03/04/18 04:31 Dose: 2 tab Sevelamer Carbonate (Renvela) 2,400 mg PO TID [facility] Last Admin: 03/04/18 09:13 Dose: Not Given Sucralfate (Carafate Tab) 1 gm PO TID [facility] Last Admin: 03/04/18 09:12 Dose: 1 gm Physical Exam - Constitutional Appears: No Acute Distress, Chronically Ill - Head Exam Head Exam: ATRAUMATIC, NORMAL INSPECTION - Eye Exam Eye Exam: EOMI, Normal appearance - Neck Exam Neck exam: Positive for: Normal Inspection. Negative for: Tenderness - Respiratory Exam Respiratory Exam: Clear to Auscultation Bilateral, NORMAL BREATHING PATTERN - Cardiovascular Exam Cardiovascular Exam: Irregular Rhythm, +S1 - GI/Abdominal Exam GI & Abdominal Exam: Soft. absent: Tenderness - Extremities Exam Extremities exam: Positive for: normal inspection, tenderness - Neurological Exam Neurological exam: Alert, CN II-XII Intact - Skin Skin Exam: Erythema, Warm Results - Vital Signs Recent Vital Signs: Last Vital Signs Temp 97.7 F 12/17/18 07:00 Pulse 60 03/04/18 11:55 Resp 20 03/04/18 07:00 BP 112/58 L 03/04/18 07:00 Pulse Ox 99 03/04/18 07:00 - Labs Result Diagrams: 03/03/18 15:54 03/03/18 15:54 Labs: Laboratory Results - last 24 hr 03/03/18 03/03/18 03/04/18 15:54 15:54 00:35 WBC 4.3 L RBC 4.02 Hgb 13.2 D Hct 40.7 MCV 101.1 H MCH 32.9 H MCHC 32.5 L RDW 15.5 H Plt Count 119 L D MPV 8.7 Neut % (Auto) 61.5 Lymph % (Auto) 26.5 [place] % (Auto) 10.3 H Eos % (Auto) 1.3 Baso % (Auto) 0.4 Neut # (Auto) 2.6 Lymph # (Auto) 1.1 [place] # (Auto) 0.4 Eos # (Auto) 0.1 Baso # (Auto) 0.0 Sodium 137 Potassium 4.1 Chloride 88 L Carbon Dioxide 30 Anion Gap 23 H BUN 44 H Creatinine 4.5 H Est GFR ( Amer) 12 Est GFR (Non-Af Amer) 10 Random Glucose 105 Calcium 7.2 L Total Bilirubin 0.9 AST 49 H D ALT 33 Alkaline Phosphatase 335 H D Total Creatine Kinase 32 CK-MB (Mass) 1.04 Troponin I 0.0190 0.0210 Total Protein 9.0 H Albumin 4.4 Globulin 4.7 H Albumin/Globulin Ratio 0.9 L Assessment & Plan (1) Failed kidney transplant Status: Acute (2) 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 renal disease Status: Acute (3) Chest pain Status: Acute (4) Atrial fibrillation Status: Acute (5) HTN (hypertension) Status: Chronic (6) Nephrogenic fibrosing dermopathy Status: Chronic - Assessment and Plan (Free Text) Plan: Dialysis TTS Adequate UF cardio eval as appropriate
--- NOTE | 2018-03-04 17:29 | CARD ---
APPROVED REPORT Date of service: 03/03/2018 EKG Measurement Heart [id number] <Conclusion> Atrial fibrillation with rapid ventricular response Right bundle branch block T wave abnormality, consider inferior ischemia Abnormal ECG
--- NOTE | 2018-03-04 19:05 | CP.PCM.PN ---
Subjective - Date & Time of Evaluation Date of Evaluation: 03/04/18 Time of Evaluation: 09:30 - Subjective Subjective: clinically same Objective - Vital Signs/Intake and Output Vital Signs (last 24 hours): Temp Pulse Resp BP Pulse Ox 97.9 F 66 20 112/63 94 L 03/04/18 15:50 03/04/18 16:00 03/04/18 15:50 03/04/18 15:50 03/04/18 15:50 - Medications Medications: Current Medications Aspirin (Aspirin) 325 mg PO DAILY [facility] Last Admin: 03/04/18 09:12 Dose: 325 mg Calcium Acetate (Phoslo) 1,334 mg PO TIDCC [facility] Last Admin: 03/04/18 17:36 Dose: 1,334 mg Clopidogrel Bisulfate (Plavix) 75 mg PO DAILY [facility] Last Admin: 03/04/18 09:12 Dose: 75 mg Famotidine (Pepcid) 20 mg PO DAILY [facility] Last Admin: 03/04/18 09:12 Dose: 20 mg Gabapentin (Neurontin) 300 mg PO DAILY [facility] Last Admin: 03/04/18 09:12 Dose: 300 mg Heparin Sodium (Porcine) (Heparin) 5,000 units SC Q12 [facility] Last Admin: 03/04/18 09:19 Dose: 5,000 units Oxycodone/Acetaminophen (Percocet 5/325 Mg Tab) 1 tab PO Q4H PRN PRN Reason: Pain, moderate (4-7) Stop: 03/06/18 19:29 Last Admin: 03/04/18 02:35 Dose: 1 tab Oxycodone/Acetaminophen (Percocet 5/325 Mg Tab) 2 tab PO Q6H PRN PRN Reason: Pain, severe (8-10) Stop: 03/06/18 21:19 Last Admin: 03/04/18 15:04 Dose: 2 tab Sevelamer Carbonate (Renvela) 2,400 mg PO TID [facility] Last Admin: 03/04/18 17:36 Dose: 2,400 mg Sucralfate (Carafate Tab) 1 gm PO TID [facility] Last Admin: 03/04/18 17:36 Dose: 1 gm - Labs Labs: 03/03/18 15:54 03/03/18 15:54 - Constitutional Appears: Well - Head Exam Head Exam: ATRAUMATIC, NORMAL INSPECTION, NORMOCEPHALIC - Eye Exam Eye Exam: EOMI, Normal appearance, PERRL Pupil Exam: NORMAL ACCOMODATION, PERRL - ENT Exam ENT Exam: Mucous Membranes Moist, Normal Exam - Neck Exam Neck Exam: Full ROM, Normal Inspection. absent: Lymphadenopathy - Respiratory Exam Respiratory Exam: Decreased Breath Sounds - Cardiovascular Exam Cardiovascular Exam: REGULAR RHYTHM, +S1, +S2 - GI/Abdominal Exam GI & Abdominal Exam: Soft, Diminished Bowel Sounds - Rectal Exam Rectal Exam: Deferred
[2018-03-05] MEDS: Oxycodone/Acetaminophen 5/325 mg Tab PO PRN ×3 (03:50→20:05)
[2018-03-05] MEDS ORDERED: Caffeine Citrated **INJ** 20 MG/ML IV ONE (07:56)
--- NOTE | 2018-03-05 10:22 | CP.PCM.PN ---
Subjective - Date & Time of Evaluation Date of Evaluation: 03/05/18 Time of Evaluation: 10:20 - Subjective Subjective: seen and examined cardio eval noted pt denies any cp dyspnea palpitations headache chronic limb pain no n/v/d Objective - Vital Signs/Intake and Output Vital Signs (last 24 hours): Temp Pulse Resp BP Pulse Ox 98 F 63 20 116/66 98 03/05/18 07:58 03/05/18 08:03 03/05/18 07:58 03/05/18 07:58 03/05/18 07:58 - Medications Medications: Current Medications Aspirin (Aspirin) 325 mg PO DAILY [facility] Last Admin: 03/04/18 09:12 Dose: 325 mg Calcium Acetate (Phoslo) 1,334 mg PO TIDCC [facility] Last Admin: 03/05/18 10:10 Dose: Not Given Clopidogrel Bisulfate (Plavix) 75 mg PO DAILY [facility] Last Admin: 03/04/18 09:12 Dose: 75 mg Famotidine (Pepcid) 20 mg PO DAILY [facility] Last Admin: 03/04/18 09:12 Dose: 20 mg Gabapentin (Neurontin) 300 mg PO DAILY [facility] Last Admin: 03/04/18 09:12 Dose: 300 mg Heparin Sodium (Porcine) (Heparin) 5,000 units SC Q12 [facility] Last Admin: 03/04/18 21:42 Dose: Not Given Oxycodone/Acetaminophen (Percocet 5/325 Mg Tab) 1 tab PO Q4H PRN PRN Reason: Pain, moderate (4-7) Stop: 03/06/18 19:29 Last Admin: 03/04/18 02:35 Dose: 1 tab Oxycodone/Acetaminophen (Percocet 5/325 Mg Tab) 2 tab PO Q6H PRN PRN Reason: Pain, severe (8-10) Stop: 03/06/18 21:19 Last Admin: 03/05/18 03:50 Dose: 2 tab Sevelamer Carbonate (Renvela) 2,400 mg PO TID [facility] Last Admin: 03/04/18 17:36 Dose: 2,400 mg Sucralfate (Carafate Tab) 1 gm PO TID [facility] Last Admin: 03/04/18 17:36 Dose: 1 gm - Labs Labs: 03/03/18 15:54 03/03/18 15:54 - Constitutional Appears: Non-toxic, No Acute Distress, Chronically Ill - Head Exam Head Exam: NORMAL INSPECTION, NORMOCEPHALIC - Eye Exam Eye Exam: Normal appearance, PERRL - ENT Exam ENT Exam: Mucous Membranes Moist, Normal Exam - Neck Exam Neck Exam: Full ROM, Normal Inspection - Respiratory Exam Respiratory Exam: Clear to Ausculation Bilateral, NORMAL BREATHING PATTERN - Cardiovascular Exam Cardiovascular Exam: Irregular Rhythm - GI/Abdominal Exam GI & Abdominal Exam: Distended, Soft - Extremities Exam Extremities Exam: Full ROM, Normal Inspection - Neurological Exam Neurological Exam: Alert, Awake - Psychiatric Exam Psychiatric exam: Normal Affect, Normal Mood - Skin Additional comments: multiple scabs all over - Additional Findings Additional findings: esrd on hd chest pain htn a fib hx of nephrogenic fibrosing dermopathy plan: hd tts cardiac w/u recommend lowering gabapentin to post dialysis only Assessment and Plan (1) Chest pain Status: Acute (2) End stage renal disease Status: Acute (3) Rapid atrial fibrillation Status: Acute (4) Anemia Status: Acute - Assessment and Plan (Free Text) Assessment: maintain hd tts cardiology management
--- NOTE | 2018-03-05 14:05 | CP.PCM.PN ---
Subjective - Date & Time of Evaluation Date of Evaluation: 03/05/18 Time of Evaluation: 09:15 - Subjective Subjective: clinically same Objective - Vital Signs/Intake and Output Vital Signs (last 24 hours): Temp Pulse Resp BP Pulse Ox 98 F 66 20 116/66 98 03/05/18 07:58 03/05/18 12:44 03/05/18 07:58 03/05/18 07:58 03/05/18 07:58 - Medications Medications: Current Medications Aspirin (Aspirin) 325 mg PO DAILY [facility] Last Admin: 03/05/18 10:46 Dose: Not Given Calcium Acetate (Phoslo) 1,334 mg PO TIDCC [facility] Last Admin: 03/05/18 12:46 Dose: Not Given Clopidogrel Bisulfate (Plavix) 75 mg PO DAILY [facility] Last Admin: 03/05/18 10:47 Dose: Not Given Famotidine (Pepcid) 20 mg PO DAILY [facility] Last Admin: 03/05/18 10:46 Dose: Not Given Gabapentin (Neurontin) 300 mg PO DAILY [facility] Last Admin: 03/05/18 11:52 Dose: 300 mg Heparin Sodium (Porcine) (Heparin) 5,000 units SC Q12 [facility] Last Admin: 03/05/18 10:46 Dose: Not Given Oxycodone/Acetaminophen (Percocet 5/325 Mg Tab) 1 tab PO Q4H PRN PRN Reason: Pain, moderate (4-7) Stop: 03/06/18 19:29 Last Admin: 03/04/18 02:35 Dose: 1 tab Oxycodone/Acetaminophen (Percocet 5/325 Mg Tab) 2 tab PO Q6H PRN PRN Reason: Pain, severe (8-10) Stop: 03/06/18 21:19 Last Admin: 03/05/18 11:53 Dose: 2 tab Sevelamer Carbonate (Renvela) 2,400 mg PO TID [facility] Last Admin: 03/05/18 10:47 Dose: Not Given Sucralfate (Carafate Tab) 1 gm PO TID [facility] Last Admin: 03/05/18 10:46 Dose: Not Given - Labs Labs: 03/03/18 15:54 03/03/18 15:54 - Constitutional Appears: Well - Head Exam Head Exam: ATRAUMATIC, NORMAL INSPECTION, NORMOCEPHALIC - Eye Exam Eye Exam: EOMI, Normal appearance, PERRL Pupil Exam: NORMAL ACCOMODATION, PERRL - ENT Exam ENT Exam: Mucous Membranes Moist, Normal Exam - Neck Exam Neck Exam: Full ROM, Normal Inspection. absent: Lymphadenopathy - Respiratory Exam Respiratory Exam: Decreased Breath Sounds - Cardiovascular Exam Cardiovascular Exam: REGULAR RHYTHM, +S1, +S2 - GI/Abdominal Exam GI & Abdominal Exam: Soft, Diminished Bowel Sounds - Rectal Exam Rectal Exam: Deferred
[2018-03-06] MEDS: Oxycodone/Acetaminophen 5/325 mg Tab PO PRN ×3 (10:14→23:32)
--- NOTE | 2018-03-06 12:44 | CARD ---
APPROVED REPORT Date of service: 03/05/2018 Protocol: LEXISCAN Test Type: LEXISCAN STRESS Test Indications: ATRIAL FIB Medications: LIST Target HR: 152 bpm Resting ECG: intraventricular condition delay Resting Heart Rate: 71 bpm Resting Blood Pressure: 134/80mmHg submaximum (85%): 129 bpm TEST SUMMARY [id number]:01..1.067/.0. PREINFSNHYPERV.06:340.00.01.407997/80.0. INFUSIONDOSE 100:300.00.01.071/.0. TQTRJZFWB21:550.00..086/.0. PROCEDURE Pharmacologic stress testing was performed using 0.4mg per 5ml of regadenoson given intravenously over 7-10 seconds. POST EXERCISE Reason for Termination: Protocol Completed Target HR: No Max HR: 71 bpm 57% of Maximum Predicted HR: 152 bpm Exercise duration: 00:30 min:sec, 0 Stage Exercise capacity: 1.0METs Max Blood Pressure: 134/80mmHg Blood Pressure response to exercise: N/A Heart Rate response to exercise: N/A Chest Pain: No, none Angina index: 0 Arrhythmia: No, none ST Change: No, none Deviation: 0 mm EXAM: Myocardial Perfusion REST/STRESS Imaging Protocol The imaging protocol used to acquire images was Rest Tc-99m/stress Tc-99m 1 day Rest Spect myocardial perfusion imaging was performed in supine position 45 minutes following the injection of 12.4 mCi of Tc-99 Myoview. Gated Stress Spect was performed 45 minutes after intravenous 32.3 mCi Tc-99 Myoview injection. The images were gated to evaluate regional wall motion and calculate ventricular ejection fraction.Images were reconstructed using backfilter projection method in short horizontal and verticle long axis. Spect slices were generated. RESTING DATA EDV38.72ilEV0.90L/min ESV9.00mlMyocardial Mass76.00g Av. Heart Rate65.00bpm EF76.00% STRESS DATA EDV44.76cmKJ0.70L/min ESV7.00mlMyocardial Mass77.00g EF84.00% Regional WT score at stress:1.00 Regional WM score at stress:0.00 Summed WT score at stress:5.00 Av. Heart Rate73.00bpmSummed WM score at stress:1.00 Study quality was fair. Left Ventricular size was Normal at Rest and Stress. Lung uptake was Normal. Left Ventricular ejection fraction is 84%. The rest and stress images show normal perfusion, normal contraction and thickening. LV Perf. Quant 17 Seg. SSS2.00 17 Seg. SRS4.00 17 Seg. SDS1.00 Stress Defect Extent (% LAD)0.00Rest Defect Extent (% LAD)6.90Rev. Defect Extent (% LAD)0.00 Stress Defect Extent (% LCX)27.50Rest Defect Extent (% LCX)25.00Rev. Defect Extent (% LCX)27.50 Stress Defect Extent (% RCA)0.00Rest Defect Extent (% RCA)6.70Rev. Defect Extent (% RCA)0.00 Stress Defect Extent (% JONAS)4.80Rest Defect Extent (% JONAS)12.20Rev. Defect Extent (% JONAS)4.80 Other Information Quality:Fair Overall Exercise Capacity: n/a Conclusion 1. - Fixed inferoseptal defect secondary to motion artifact 2. - Low probability for significant CAD 3. - Normal LVEF 4. Recommendations: 5. Aggressive medical management and risk factor modification
--- NOTE | 2018-03-06 13:42 | CP.PCM.PN ---
Subjective - Date & Time of Evaluation Date of Evaluation: 03/06/18 Time of Evaluation: 13:39 - Subjective Subjective: chronic pain all over headache no acute events no chest pain no sob no palpitations no fever no chills no diarrhea no nausea decreased urine production no rash + arthralgias Objective - Vital Signs/Intake and Output Vital Signs (last 24 hours): Temp Pulse Resp BP Pulse Ox 98.1 F 69 20 99/55 L 95 03/06/18 08:03 03/06/18 08:03 03/06/18 08:03 03/06/18 08:03 03/06/18 08:03 Intake and Output: 03/06/18 03/06/18 06:59 18:59 Intake Total 400 Balance 400 - Medications Medications: Current Medications Aspirin (Aspirin) 325 mg PO DAILY [facility] Last Admin: 03/06/18 10:05 Dose: 325 mg Calcium Acetate (Phoslo) 1,334 mg PO TIDCC [facility] Last Admin: 03/06/18 12:30 Dose: 1,334 mg Clopidogrel Bisulfate (Plavix) 75 mg PO DAILY [facility] Last Admin: 03/06/18 10:12 Dose: 75 mg Famotidine (Pepcid) 20 mg PO DAILY [facility] Last Admin: 03/06/18 10:06 Dose: 20 mg Gabapentin (Neurontin) 300 mg PO DAILY [facility] Last Admin: 03/06/18 10:05 Dose: 300 mg Heparin Sodium (Porcine) (Heparin) 5,000 units SC Q12 [facility] Last Admin: 03/06/18 10:17 Dose: Not Given Oxycodone/Acetaminophen (Percocet 5/325 Mg Tab) 1 tab PO Q4H PRN PRN Reason: Pain, moderate (4-7) Stop: 03/06/18 19:29 Last Admin: 03/06/18 10:14 Dose: 1 tab Oxycodone/Acetaminophen (Percocet 5/325 Mg Tab) 2 tab PO Q6H PRN PRN Reason: Pain, severe (8-10) Stop: 03/06/18 21:19 Last Admin: 03/05/18 20:05 Dose: 2 tab Sevelamer Carbonate (Renvela) 2,400 mg PO TID [facility] Last Admin: 03/06/18 13:16 Dose: 2,400 mg Sucralfate (Carafate Tab) 1 gm PO TID [facility] Last Admin: 03/06/18 13:20 Dose: 1 gm - Labs Labs: 03/03/18 15:54 03/03/18 15:54 - Constitutional Appears: No Acute Distress, Chronically Ill - Head Exam Head Exam: ATRAUMATIC, NORMAL INSPECTION - Eye Exam Eye Exam: EOMI - ENT Exam ENT Exam: Mucous Membranes Moist - Neck Exam Neck Exam: Full ROM. absent: Lymphadenopathy - Respiratory Exam Respiratory Exam: Decreased Breath Sounds. absent: Accessory Muscle Use - Cardiovascular Exam Cardiovascular Exam: REGULAR RHYTHM. absent: Rubs - GI/Abdominal Exam GI & Abdominal Exam: Soft. absent: Tenderness - Neurological Exam Neurological Exam: Alert, Awake, Oriented x3 - Skin Additional comments: skin changes in hands Assessment and Plan - Assessment and Plan (Free Text) Plan: maint HD f/u cardiology and pulmonary recommendations pain management
--- NOTE | 2018-03-06 15:52 | CP.PCM.PN ---
Subjective - Date & Time of Evaluation Date of Evaluation: 03/06/18 Time of Evaluation: 15:51 - Subjective Subjective: s/p stress test no evidence of ischemia Objective - Vital Signs/Intake and Output Vital Signs (last 24 hours): Temp Pulse Resp BP Pulse Ox 98.1 F 69 20 99/55 L 95 03/06/18 08:03 03/06/18 08:03 03/06/18 08:03 03/06/18 08:03 03/06/18 08:03 Intake and Output: 03/06/18 03/06/18 06:59 18:59 Intake Total 400 200 Balance 400 200 - Medications Medications: Current Medications Aspirin (Aspirin) 325 mg PO DAILY [facility] Last Admin: 03/06/18 10:05 Dose: 325 mg Calcium Acetate (Phoslo) 1,334 mg PO TIDCC [facility] Last Admin: 03/06/18 12:30 Dose: 1,334 mg Clopidogrel Bisulfate (Plavix) 75 mg PO DAILY [facility] Last Admin: 03/06/18 10:12 Dose: 75 mg Famotidine (Pepcid) 20 mg PO DAILY [facility] Last Admin: 03/06/18 10:06 Dose: 20 mg Gabapentin (Neurontin) 300 mg PO DAILY [facility] Last Admin: 03/06/18 10:05 Dose: 300 mg Heparin Sodium (Porcine) (Heparin) 5,000 units SC Q12 [facility] Last Admin: 03/06/18 10:17 Dose: Not Given Oxycodone/Acetaminophen (Percocet 5/325 Mg Tab) 1 tab PO Q4H PRN PRN Reason: Pain, moderate (4-7) Stop: 03/06/18 19:29 Last Admin: 03/06/18 10:14 Dose: 1 tab Oxycodone/Acetaminophen (Percocet 5/325 Mg Tab) 2 tab PO Q6H PRN PRN Reason: Pain, severe (8-10) Stop: 03/06/18 21:19 Last Admin: 03/05/18 20:05 Dose: 2 tab Sevelamer Carbonate (Renvela) 2,400 mg PO TID [facility] Last Admin: 03/06/18 13:16 Dose: 2,400 mg Sucralfate (Carafate Tab) 1 gm PO TID [facility] Last Admin: 03/06/18 13:20 Dose: 1 gm - Labs Labs: 03/03/18 15:54 03/03/18 15:54 - Constitutional Appears: Well - Head Exam Head Exam: ATRAUMATIC, NORMAL INSPECTION, NORMOCEPHALIC - Eye Exam Eye Exam: EOMI, Normal appearance, PERRL Pupil Exam: NORMAL ACCOMODATION, PERRL - ENT Exam ENT Exam: Mucous Membranes Moist, Normal Exam - Neck Exam Neck Exam: Full ROM, Normal Inspection. absent: Lymphadenopathy - Respiratory Exam Respiratory Exam: Clear to Ausculation Bilateral, NORMAL BREATHING PATTERN - Cardiovascular Exam Cardiovascular Exam: REGULAR RHYTHM, +S1, +S2. absent: Murmur - GI/Abdominal Exam GI & Abdominal Exam: Soft, Normal Bowel Sounds. absent: Tenderness - Extremities Exam Extremities Exam: Full ROM, Normal Capillary Refill, Normal Inspection. absent: Joint Swelling, Pedal Edema - Back Exam Back Exam: NORMAL INSPECTION - Neurological Exam Neurological Exam: Alert, Awake, CN II-XII Intact, Normal Gait, Oriented x3 - Psychiatric Exam Psychiatric exam: Normal Affect, Normal Mood - Skin Skin Exam: Dry, Intact, Normal Color, Warm Assessment and Plan (1) Chest pain Status: Acute (2) End stage renal disease Status: Acute (3) Rapid atrial fibrillation Status: Acute (4) Anemia Status: Acute (5) CHF (congestive heart failure) Status: Acute
--- NOTE | 2018-03-06 21:00 | CP.PCM.PN ---
Subjective - Date & Time of Evaluation Date of Evaluation: 03/06/18 Time of Evaluation: 08:30 - Subjective Subjective: clinically same Objective - Vital Signs/Intake and Output Vital Signs (last 24 hours): Temp Pulse Resp BP Pulse Ox 98.2 F 69 20 100/62 97 03/06/18 15:54 03/06/18 19:56 03/06/18 15:54 03/06/18 15:54 03/06/18 15:54 Intake and Output: 03/06/18 03/07/18 18:59 06:59 Intake Total 200 Balance 200 - Medications Medications: Current Medications Aspirin (Aspirin) 325 mg PO DAILY [facility] Last Admin: 03/06/18 10:05 Dose: 325 mg Calcium Acetate (Phoslo) 1,334 mg PO TIDCC [facility] Last Admin: 03/06/18 17:04 Dose: Not Given Clopidogrel Bisulfate (Plavix) 75 mg PO DAILY [facility] Last Admin: 03/06/18 10:12 Dose: 75 mg Famotidine (Pepcid) 20 mg PO DAILY [facility] Last Admin: 03/06/18 10:06 Dose: 20 mg Gabapentin (Neurontin) 300 mg PO DAILY [facility] Last Admin: 03/06/18 10:05 Dose: 300 mg Heparin Sodium (Porcine) (Heparin) 5,000 units SC Q12 [facility] Last Admin: 03/06/18 10:17 Dose: Not Given Oxycodone/Acetaminophen (Percocet 5/325 Mg Tab) 2 tab PO Q6H PRN PRN Reason: Pain, severe (8-10) Stop: 03/06/18 21:19 Last Admin: 03/06/18 16:35 Dose: 2 tab Sevelamer Carbonate (Renvela) 2,400 mg PO TID [facility] Last Admin: 03/06/18 17:04 Dose: Not Given Sucralfate (Carafate Tab) 1 gm PO TID [facility] Last Admin: 03/06/18 17:04 Dose: Not Given - Labs Labs: 03/03/18 15:54 03/03/18 15:54 - Constitutional Appears: Well - Head Exam Head Exam: ATRAUMATIC, NORMAL INSPECTION, NORMOCEPHALIC - Eye Exam Eye Exam: EOMI, Normal appearance, PERRL Pupil Exam: NORMAL ACCOMODATION, PERRL - ENT Exam ENT Exam: Mucous Membranes Moist, Normal Exam - Neck Exam Neck Exam: Full ROM, Normal Inspection. absent: Lymphadenopathy - Respiratory Exam Respiratory Exam: Decreased Breath Sounds - Cardiovascular Exam Cardiovascular Exam: REGULAR RHYTHM, +S1, +S2 - GI/Abdominal Exam GI & Abdominal Exam: Soft, Diminished Bowel Sounds - Rectal Exam Rectal Exam: Deferred
[2018-03-06] MEDS ORDERED: Oxycodone/Acetaminophen 5/325 mg Tab PO PRN (23:25)
--- NOTE | 2018-03-07 08:55 | CP.PCM.PN ---
Subjective - Date & Time of Evaluation Date of Evaluation: 03/07/18 Time of Evaluation: 08:53 - Subjective Subjective: Same c/o pains Stable dialysis course For HD today No new events No SOB, fevers, chills, n, v, diarrhea Objective - Vital Signs/Intake and Output Vital Signs (last 24 hours): Temp Pulse Resp BP Pulse Ox 97.8 F 62 18 104/59 L 97 03/07/18 07:00 03/07/18 07:32 03/07/18 07:00 03/07/18 07:00 03/07/18 07:00 Intake and Output: 03/07/18 03/07/18 06:59 18:59 Intake Total 300 Balance 300 - Medications Medications: Current Medications Aspirin (Aspirin) 325 mg PO DAILY [facility] Last Admin: 03/06/18 10:05 Dose: 325 mg Calcium Acetate (Phoslo) 1,334 mg PO TIDCC [facility] Last Admin: 03/06/18 17:04 Dose: Not Given Clopidogrel Bisulfate (Plavix) 75 mg PO DAILY [facility] Last Admin: 03/06/18 10:12 Dose: 75 mg Famotidine (Pepcid) 20 mg PO DAILY [facility] Last Admin: 03/06/18 10:06 Dose: 20 mg Gabapentin (Neurontin) 300 mg PO DAILY [facility] Last Admin: 03/06/18 10:05 Dose: 300 mg Heparin Sodium (Porcine) (Heparin) 5,000 units SC Q12 [facility] Last Admin: 03/06/18 21:06 Dose: Not Given Oxycodone/Acetaminophen (Percocet 5/325 Mg Tab) 1 tab PO Q4H PRN PRN Reason: Pain, moderate (4-7) Stop: 03/09/18 23:26 Oxycodone/Acetaminophen (Percocet 5/325 Mg Tab) 2 tab PO Q6H PRN PRN Reason: Pain, severe (8-10) Stop: 03/09/18 23:27 Last Admin: 03/06/18 23:32 Dose: 2 tab Sevelamer Carbonate (Renvela) 2,400 mg PO TID [facility] Last Admin: 03/06/18 17:04 Dose: Not Given Sucralfate (Carafate Tab) 1 gm PO TID [facility] Last Admin: 03/06/18 17:04 Dose: Not Given - Labs Labs: 03/03/18 15:54 03/03/18 15:54 - Constitutional Appears: No Acute Distress, Chronically Ill - Head Exam Head Exam: ATRAUMATIC, NORMAL INSPECTION - Eye Exam Eye Exam: EOMI, Normal appearance - Neck Exam Neck Exam: Normal Inspection. absent: Tenderness - Respiratory Exam Respiratory Exam: Clear to Ausculation Bilateral, NORMAL BREATHING PATTERN - Cardiovascular Exam Cardiovascular Exam: REGULAR RHYTHM, +S1 - GI/Abdominal Exam GI & Abdominal Exam: Soft. absent: Tenderness - Extremities Exam Extremities Exam: Pedal Edema, Tenderness - Neurological Exam Neurological Exam: Alert, CN II-XII Intact - Skin Skin Exam: Pallor, Warm Assessment and Plan (1) Failed kidney transplant Status: Acute (2) 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 renal disease Status: Acute (3) Chest pain Status: Acute (4) Atrial fibrillation Status: Acute (5) HTN (hypertension) Status: Chronic (6) Nephrogenic fibrosing dermopathy Status: Chronic - Assessment and Plan (Free Text) Plan: Dialysis now and TTS Pain management Consider discharge post dialysis
[2018-03-07] MEDS: Oxycodone/Acetaminophen 5/325 mg Tab PO PRN (09:02)
--- NOTE | 2018-03-07 15:33 | PCM.HF ---
Heart Failure Core Measure - Heart Failure Ejection Fraction: 40 % or Greater (EF 55-60%) ZAID Inhibitor Prescribed: No Contraindication/Reason for not providing: ESRD Beta-Isra Prescribed: Metoprolol Succinate Angiotensin II Receptor Isra Prescribed: No Contraindication/Reason for not providing: ESRD Aldosterone Antagonist Prescribed: No Contraindication/Reason for not providing: rate controlled, not a candidate for anticoagulation Hydralazine Nitrate Prescribed: No Contraindication/Reason for not providing: EF >40% Implantable Cardioverter Defibrillator Therapy: Yes Cardiac Resynchronization Therapy Prescribed: No Contraindication/Reason for not providing: not indicated - Follow up Will be discharged to: Home Follow Up Date (must be within 7 days from discharge): 03/11/18 Follow Up Time: 10:00
--- NOTE | 2018-03-07 15:40 | CP.PCM.PN ---
Subjective - Date & Time of Evaluation Date of Evaluation: 03/07/18 Time of Evaluation: 15:40 - Subjective Subjective: alert, awake, NAD. Objective - Vital Signs/Intake and Output Vital Signs (last 24 hours): Temp Pulse Resp BP Pulse Ox 97.6 F 75 20 101/56 L 96 03/07/18 13:27 03/07/18 13:27 03/07/18 13:27 03/07/18 13:27 03/07/18 13:27 Intake and Output: 03/07/18 03/07/18 06:59 18:59 Intake Total 300 Balance 300 - Medications Medications: Current Medications Aspirin (Aspirin) 325 mg PO DAILY [facility] Last Admin: 03/07/18 09:37 Dose: Not Given Calcium Acetate (Phoslo) 1,334 mg PO TIDCC [facility] Last Admin: 03/07/18 12:00 Dose: Not Given Clopidogrel Bisulfate (Plavix) 75 mg PO DAILY [facility] Last Admin: 03/07/18 09:38 Dose: Not Given Famotidine (Pepcid) 20 mg PO DAILY [facility] Last Admin: 03/07/18 09:38 Dose: Not Given Gabapentin (Neurontin) 300 mg PO DAILY [facility] Last Admin: 03/07/18 09:06 Dose: 300 mg Oxycodone/Acetaminophen (Percocet 5/325 Mg Tab) 1 tab PO Q4H PRN PRN Reason: Pain, moderate (4-7) Stop: 03/09/18 23:26 Oxycodone/Acetaminophen (Percocet 5/325 Mg Tab) 2 tab PO Q6H PRN PRN Reason: Pain, severe (8-10) Stop: 03/09/18 23:27 Last Admin: 03/07/18 09:02 Dose: 2 tab Sevelamer Carbonate (Renvela) 2,400 mg PO TID [facility] Last Admin: 03/07/18 13:31 Dose: 2,400 mg Sucralfate (Carafate Tab) 1 gm PO TID [facility] Last Admin: 03/07/18 13:31 Dose: 1 gm - Labs Labs: 03/03/18 15:54 03/03/18 15:54 Assessment and Plan - Assessment and Plan (Free Text) Assessment: 68 year old female admitted with chest pain, rapid afib, cleared by cardiologyst, seen and examined after HD today. Alert awake, tired from HD today. Denies any chest pain or acute distress. Discussed with DR Moody Newell, plan to discharge home today. Will continue with HD, TTS, advised to follow up with PMD in 1 week.
[2018-03-07 15:45] VITALS: BP 107/59; RESP 18; TEMP 98; O2SAT 99
[2018-03-07 16:04] VITALS: PULSE 62
== END 2018-03-07 16:40 | disposition home or self-care (01) | DRG 302 ==
LOC: C.ER 15:12 → C.9E 16:14 → C.5S 16:34
PROVIDERS: ADMIT Internal Medicine Nephrology; ATTEND Internal Medicine Nephrology
PROC: 5A1D70Z Performance of Urinary Filtration, Intermittent, Less than 6 Hours Per Day (ICD-10-PCS; principal; 2018-03-05)
PROC: 5A1D70Z Performance of Urinary Filtration, Intermittent, Less than 6 Hours Per Day (ICD-10-PCS; 2018-03-07)
DX: I25.10 Atherosclerotic heart disease of native coronary artery without angina pectoris (principal); N18.6 End stage renal disease; I13.2 Hypertensive heart and chronic kidney disease with heart failure and with stage 5 chronic kidney disease, or end stage renal disease; N25.81 Secondary hyperparathyroidism of renal origin; T86.12 Kidney transplant failure; I48.91 Unspecified atrial fibrillation; G89.29 Other chronic pain; E78.5 Hyperlipidemia, unspecified; H40.9 Unspecified glaucoma; J44.9 Chronic obstructive pulmonary disease, unspecified; Z95.0 Presence of cardiac pacemaker; Z99.2 Dependence on renal dialysis; I50.9 Heart failure, unspecified

== ENCOUNTER 2018-03-23 13:25 | Observation (INO) | payer MEDICARE, OTHER ==
[2018-03-23 13:26] VITALS: PULSE 146; BMI 22.3
[2018-03-23] MEDS ORDERED: Sodium Chloride 0.9% 500 ML IV ONE ×2 (14:02→14:03)
[2018-03-23 14:10] LABS: BASO % 0.3 % (0.0-2.0); EOS # 0.1 K/uL (0.0-0.7); EOS % 1.8 % (0.0-4.0); LYMPH # 0.6 K/uL (1.0-4.3); MEAN CELL VOLUME 101.6 fL (81.0-99.0); MEAN CORPUSCULAR HEMOGLOBIN 32.9 pg (27.0-31.0); MEAN CORPUSCULAR HGB CONC 32.4 g/dL (33.0-37.0); MEAN PLATELET VOLUME 8.6 fL (7.2-11.7); MONO # 0.2 K/uL (0.0-0.8); MONO % 7.4 % (0.0-10.0); NEUT # 2.1 K/uL (1.8-7.0); NEUT % 70.5 % (50.0-75.0); NRBC % 0.1 % (0.0-2.0); RBC 3.26 Mil/uL (3.80-5.20); RED CELL DISTRIBUTION WIDTH 15.4 % (11.5-14.5)
[2018-03-23 14:11] LABS: HEMOGLOBIN 10.7 g/dL (11.0-16.0)
--- NOTE | 2018-03-23 14:18 | C.PDOC ---
History Of Present Illness 68 y/o female comes in stating that she was at dialysis earlier today when she started feeling chest pain, palpitations, and SOB. Patient managed to finish dialysis and came here. She still complains of chest pain, palpitations, and SOB, and is requesting 10 mg of percocet for her body pain because she states it is a home medication. Patient denies dizziness, diaphoresis, headache, or other symptoms. Time Seen by Provider: 03/23/18 13:51 Chief Complaint (Nursing): Palpitations History Per: Patient History/Exam Limitations: no limitations Onset/Duration Of Symptoms: Hrs Current Symptoms Are (Timing): Still Present PMH Reviewed: Historical Data, Nursing Documentation, Vital Signs - Medical History PMH: Neuro Disorder, HEENT Problems, GI Disorders, Resp Disorders Denies: MS Disorders - Family History Family History: States: No Known Family Hx - Immunization History Hx Tetanus Toxoid Vaccination: Yes Hx Influenza Vaccination: Yes Hx Pneumococcal Vaccination: Yes Review Of Systems Constitutional: Negative for: Fever, Sweats Cardiovascular: Positive for: Chest Pain, Palpitations Respiratory: Positive for: Shortness of Breath. Negative for: Cough Gastrointestinal: Negative for: Vomiting Skin: Negative for: Rash Neurological: Negative for: Headache, Dizziness Pedatric Physical Exam - Physical Exam Appears: Non-toxic, No Acute Distress Skin: Warm, Dry Head: Atraumatic, Normacephalic Eye(s): bilateral: Normal Inspection, PERRL, EOMI Oral Mucosa: Moist Neck: Supple Chest: Symmetrical Cardiovascular: Rhythm Irregular (tachycardic), No Murmur Respiratory: Normal Breath Sounds Gastrointestinal/Abdominal: Soft, Tenderness (mild diffuse tenderness), No Guarding, No Rebound Extremity: Normal ROM (of all extremities), Other (AV fistula to right arm with palpable thrill) Extremity: Bilateral: Normal Color And Temperature Neurological/Psych: Oriented x3, Normal Speech ED Course And Treatment - Laboratory Results Result Diagrams: 03/23/18 14:07 03/23/18 14:07 Medical Decision Making Medical Decision Making: Plan: --Bloodwork --Chest XR --IV fluids for hypotension (limiting to 500cc bolus as patient is on dialysis with dyspnea) Labs and CXR done, results reviewed and discussed with patient. BP still in the high 80's after fluids. HR 110-110, still in afib, not new for patient. Patient AAOx3, only complaint is that she wants her 10mg percocet, however will refrain from giving this at this point since patient is still hypotensive. Decision made to admit for further evaluation. 1441- Case discussed with Dr. Moody Newell who accepts patient to his service for admission. Disposition - Disposition Disposition: HOSPITALIZED Disposition Time: 14:42 Condition: FAIR Forms: [facility] (Swedish) - Clinical Impression Clinical Impression: Chest pain, Dyspnea, Atrial fibrillation with RVR - Scribe Statement The provider has reviewed the documentation as recorded by the Erick Rios Provider Attestation: All medical record entries made by the Erick were at my direction and personally dictated by me. I have reviewed the chart and agree that the record accurately reflects my personal performance of the history, physical exam, medical decision making, and the department course for this patient. I have also personally directed, reviewed, and agree with the discharge instructions and disposition.
--- NOTE | 2018-03-23 14:24 | RAD ---
HISTORY: chest pain COMPARISON: Chest x-ray performed 03/03/18 TECHNIQUE: Chest, one view. FINDINGS: LUNGS: Small right greater than left pleural effusions and associated consolidations. Moderate pulmonary venous congestion. No definite pneumothorax. CARDIOVASCULAR: Cardiomegaly. Atherosclerotic calcifications. Dual lead left-sided pacemaker. OSSEOUS STRUCTURES: No acute osseous abnormality identified. VISUALIZED UPPER ABDOMEN: Unremarkable. OTHER FINDINGS: None. IMPRESSION: Small right greater than left pleural effusions and associated consolidations. Moderate pulmonary venous congestion. Cardiomegaly.
[2018-03-23 14:35] LABS: CALCIUM 7.7 mg/dl (8.6-10.4); TROPONIN I 0.014 ng/mL (0.00-0.120)
[2018-03-23] MEDS ORDERED: Oxycodone/Acetaminophen 5/325 mg Tab PO PRN (17:38)
[2018-03-23] MEDS: Oxycodone/Acetaminophen 5/325 mg Tab PO PRN (19:00)
--- NOTE | 2018-03-23 21:29 | CP.PCM.HP ---
Past Patient History - Infectious Disease Hx of Infectious Diseases: None - Tetanus Immunizations Tetanus Immunization: Unknown - Past Medical History & Family History Past Medical History?: Yes - Past Social History Smoking Status: Never Smoked - CARDIAC Hx Atrial Fibrillation: Yes Hx Cardia Arrhythmia: Yes Hx Congestive Heart Failure: Yes (A-fib, CAD) Hx Hypercholesterolemia: No Hx Hypertension: Yes Hx Pacemaker: Yes Hx Peripheral Edema: Yes - PULMONARY Hx Respiratory Disorders: Yes - NEUROLOGICAL Hx Neurological Disorder: Yes - HEENT Hx HEENT Problems: Yes - RENAL Hx Chronic Kidney Disease: Yes Hx Kidney Stones: Yes - ENDOCRINE/METABOLIC Hx Endocrine Disorders: No - HEMATOLOGICAL/ONCOLOGICAL Hx Anemia: Yes - INTEGUMENTARY Hx Dermatological Problems: Yes Other/Comment: Scleroderma of both arms/both legs - MUSCULOSKELETAL/RHEUMATOLOGICAL Hx Musculoskeletal Disorders: No Hx Falls: No - GASTROINTESTINAL Hx Gastrointestinal Disorders: Yes - GENITOURINARY/GYNECOLOGICAL Hx Sexually Transmitted Disorders: No - PSYCHIATRIC Hx Depression: Yes Hx Substance Use: No - SURGICAL HISTORY Hx Cholecystectomy: Yes - ANESTHESIA Hx Anesthesia: Yes Hx Anesthesia Reactions: No Hx Malignant Hyperthermia: No Meds Allergies/Adverse Reactions: Allergies Allergy/AdvReac Type Severity Reaction Status Date / Time vancomycin Allergy Severe ITCHING Verified 03/03/18 15:24 azithromycin Allergy ITCHING Verified 03/03/18 15:24 budesonide [From Symbicort] Allergy ITCHING Verified 03/03/18 15:24 formoterol [From Symbicort] Allergy ITCHING Verified 03/03/18 15:24 gabapentin Allergy Verified 03/23/18 13:38 Physical Exam - Constitutional Appears: Well - Head Exam Head Exam: ATRAUMATIC, NORMAL INSPECTION, NORMOCEPHALIC - Eye Exam Eye Exam: EOMI, Normal appearance, PERRL Pupil Exam: NORMAL ACCOMODATION, PERRL - ENT Exam ENT Exam: Mucous Membranes Moist, Normal Exam - Neck Exam Neck exam: Positive for: Normal Inspection - Respiratory Exam Respiratory Exam: Decreased Breath Sounds - Cardiovascular Exam Cardiovascular Exam: REGULAR RHYTHM, +S1, +S2 - GI/Abdominal Exam GI & Abdominal Exam: Diminished Bowel Sounds, Soft - Rectal Exam Rectal Exam: Deferred Results - Vital Signs Recent Vital Signs: Last Vital Signs Temp 97.8 F 03/23/18 17:38 Pulse 112 H 03/23/18 17:38 Resp 20 03/23/18 17:38 BP 157/78 H 03/23/18 18:58 Pulse Ox 100 03/23/18 17:38 - Labs Result Diagrams: 03/23/18 14:07 03/23/18 14:07 Labs: Laboratory Results - last 24 hr 03/23/18 03/23/18 14:07 14:07 WBC 3.0 L RBC 3.26 L Hgb 10.7 L D Hct 33.1 L MCV 101.6 H MCH 32.9 H MCHC 32.4 L RDW 15.4 H Plt Count 100 L MPV 8.6 Neut % (Auto) 70.5 Lymph % (Auto) 20.0 [place] % (Auto) 7.4 Eos % (Auto) 1.8 Baso % (Auto) 0.3 Neut # (Auto) 2.1 Lymph # (Auto) 0.6 L [place] # (Auto) 0.2 Eos # (Auto) 0.1 Baso # (Auto) 0.0 Differential Comment Sodium 136 Potassium 4.2 Chloride 94 L Carbon Dioxide 32 H Anion Gap 14 BUN 23 H Creatinine 2.2 H Est GFR ( Amer) 27 Est GFR (Non-Af Amer) 22 Random Glucose 88 Calcium 7.7 L Troponin I 0.0140
[2018-03-23 23:31] LABS: CK-MB 0.95 ng/mL (0.0-3.38)
[2018-03-23 23:32] LABS: TROPONIN I 0.041 ng/mL (0.00-0.120)
[2018-03-24] MEDS: Oxycodone/Acetaminophen 5/325 mg Tab PO PRN ×2 (05:54→22:28)
[2018-03-24] MEDS ORDERED: Oxycodone/Acetaminophen 5/325 mg Tab PO ONE (10:24)
--- NOTE | 2018-03-24 13:00 | CP.PCM.CON ---
History of Present Illness - History of Present Illness History of Present Illness: I was asked to see patient by Dr Moody Newell Patient is a 68 year old female with HTN ESRD on HD atrial fibrillation who presents with palpitiatons. She develoepd tachcyardia dueong dialysis. She was found to be in atrial fibrillation with rapid ventricular response. The patient is currently asymptomatic. Stress test performed last month was negative for myocardial ischemia. Review of Systems - Constitutional Constitutional: absent: As Per HPI, Anorexia, Chills, Daytime Sleepiness, Excessive Sweating, Fatigue, Fever, Frequent Falls, Headache, Increased Appetit e, Lethargy, Malaise, Night Sweats, Snoring, Sleep Apnea, Weight Gain, Weight Loss, Weakness, Other - EENT Eyes: absent: As Per HPI, Blind Spots, Blurred Vision, Change in Vision, Decreased Night Vision, Diplopia, Discharge, Dry Eye, Exophthalmos, Floaters, Irritation, Itchy Eyes, Loss of Peripheral Vision, Pain, Photophobia, Requires Corrective Lenses, Sees Flashes, Spots in Vision, Tunnel Vision, Other Visual Disturbances, Loss of Vision, Other Ears: absent: As Per HPI, Decreased Hearing, Ear Discharge, Ear Pain, Tinnitus, Abnormal Hearing, Disequilibrium, Dizziness, Other Nose/Mouth/Throat: absent: As Per HPI, Epistaxis, Nasal Congestion, Nasal Discharge, Nasal Obstruction, Nasal Trauma, Nose Pain, Post Nasal Drip, Sinus Pain, Sinus Pressure, Bleeding Gums, Change in Voice, Dental Pain, Dry Mouth, Dysphagia, Halitosis, Hoarsness, Lip Swelling, Mouth Lesions, Mouth Pain, Odynophagia, Sore Throat, Throat Swelling, Tongue Swelling, Facial Pain, Neck Pain, Neck Mass, Other - Cardiovascular Cardiovascular: Rapid Heart Rate - Respiratory Respiratory: Dyspnea - Gastrointestinal Gastrointestinal: absent: As Per HPI, Abdominal Pain, Belching, Bloating, Change in Bowel Habits, Change in Stool Character, Coffee Ground Emesis, Constipation, Cramping, Diarrhea, Dyspepsia, Dysphagia, Early Satiety, Excessive Flatus, Fecal Incontinence, Heartburn, Hematemesis, Hematochezia, Loose Stools, Melena, Nausea, Odynophagia, Temesmus, Vomiting, Other - Genitourinary Genitourinary: absent: As Per HPI, Change in Urinary Stream, Difficulty Urinating, Dysuria, Flank Pain, Hematuria, Pyuria, Nocturia, Urinary Incontinence, Urinary Frequency, Urinary Hesitance, Urinary Urgency, Voiding Freq/Small Amts, Freq UTI, Hx Renal/Bladder Calculi, Hx /Renal Surgery, Bladder Distension, Other - Musculoskeletal Musculoskeletal: absent: As Per HPI, Abnormal Gait, Arthralgias, Atrophy, Back Pain, Deformity, Joint Swelling, Limited Range of Motion, Loss of Height, Muscle Cramps, Muscle Weakness, Myalgias, Neck Pain, Numbness, Radiating Pain into Limb, Stiffness, Tingling, Other - Integumentary Integumentary: absent: As Per HPI, Acne, Alopecia, Bleeding Lesions, Change in Hair, Change in Nails, Change in Pigmentation, Changing Lesions, Dry Skin, Erythema, Furuncle, Hirsutism, Lesions, New Lesions, Non-Healing Lesions, Photosensitivity, Pruritus, Rash, Skin Pain, Skin Ulcer, Sores, Striae, Swelling, Unusual Bruising, Wounds, Jaundice, Other - Neurological Neurological: absent: As Per HPI, Abnormal Gait, Abnormal Hearing, Abnormal Move ments, Abnormal Speech, Behavioral Changes, Burning Sensations, Confusion, Convulsions, Disequilibrium, Dizziness, Numbness, Focal Weakness, Frequent Falls, Headaches, Lack of Coordination, Loss of Vision, Memory Loss, Paresthesias, Radicular Pain, Restless Legs, Sensory Deficit, Syncope, Tingling, Tremor, Vertigo, Weakness, Other Visual Disturbances, Other - Psychiatric Psychiatric: absent: As Per HPI, Abnormal Sleep Pattern, Anhedonia, Anxiety, Auditory Hallucinations, Behavioral Changes, Change in Appetite, Change in Libido, Confusion, Depression, Difficulty Concentrating, Hallucinations, Homicidal Ideation, Hopelessness, Irritability, Memory Loss, Mood Swings, Panic Attacks, Paranoia, Suicidal Ideation, Visual Hallucinations, Tactile Hallucinations, Other - Endocrine Endocrine: absent: As Per HPI, Change in Body Appearance, Change in Libido, Cold Intolorance, Deepening of Voice, Excessive Sweating, Fatigue, Flushing, Heat Intolorance, Increase in Ring/Shoe/Hat Size, Palpitations, Polydipsia, Polyphagia, Polyuria, Other - Hematologic/Lymphatic Hematologic: absent: As Per HPI, Easy Bleeding, Easy Bruising, Lymphadenopathy, Other Past Patient History - Infectious Disease Hx of Infectious Diseases: None - Tetanus Immunizations Tetanus Immunization: Unknown - Past Medical History & Family History Past Medical History?: Yes - Past Social History Smoking Status: Never Smoked - CARDIAC Hx Atrial Fibrillation: Yes Hx Cardia Arrhythmia: Yes Hx Congestive Heart Failure: Yes (A-fib, CAD) Hx Hypercholesterolemia: No Hx Hypertension: Yes Hx Pacemaker: Yes Hx Peripheral Edema: Yes - PULMONARY Hx Respiratory Disorders: Yes - NEUROLOGICAL Hx Neurological Disorder: Yes - HEENT Hx HEENT Problems: Yes - RENAL Hx Chronic Kidney Disease: Yes Hx Kidney Stones: Yes - ENDOCRINE/METABOLIC Hx Endocrine Disorders: No - HEMATOLOGICAL/ONCOLOGICAL Hx Anemia: Yes - INTEGUMENTARY Hx Dermatological Problems: Yes Other/Comment: Scleroderma of both arms/both legs - MUSCULOSKELETAL/RHEUMATOLOGICAL Hx Musculoskeletal Disorders: No Hx Falls: No - GASTROINTESTINAL Hx Gastrointestinal Disorders: Yes - GENITOURINARY/GYNECOLOGICAL Hx Sexually Transmitted Disorders: No - PSYCHIATRIC Hx Depression: Yes Hx Substance Use: No - SURGICAL HISTORY Hx Cholecystectomy: Yes - ANESTHESIA Hx Anesthesia: Yes Hx Anesthesia Reactions: No Hx Malignant Hyperthermia: No Meds Allergies/Adverse Reactions: Allergies Allergy/AdvReac Type Severity Reaction Status Date / Time vancomycin Allergy Severe ITCHING Verified 03/03/18 15:24 azithromycin Allergy ITCHING Verified 03/03/18 15:24 budesonide [From Symbicort] Allergy ITCHING Verified 03/03/18 15:24 formoterol [From Symbicort] Allergy ITCHING Verified 03/03/18 15:24 gabapentin Allergy Verified 03/23/18 13:38 - Medications Medications: Current Medications Amlodipine Besylate (Norvasc) 5 mg PO DAILY [facility] Last Admin: 03/24/18 10:44 Dose: 5 mg Aspirin (Aspirin) 325 mg PO DAILY [facility] Last Admin: 03/24/18 10:44 Dose: Not Given Calcium Acetate (Phoslo) 1,334 mg PO TIDCC [facility] Last Admin: 03/24/18 09:09 Dose: Not Given Clopidogrel Bisulfate (Plavix) 75 mg PO DAILY [facility] Last Admin: 03/24/18 10:46 Dose: Not Given Heparin Sodium (Porcine) (Heparin) 5,000 units SC Q12 [facility] Last Admin: 03/24/18 10:46 Dose: Not Given Ceftriaxone Sodium 1 gm/ (Sodium Chloride) 100 mls @ 100 mls/hr IVPB DAILY [facility]; Protocol Last Admin: 03/24/18 10:45 Dose: 100 mls/hr Isosorbide Dinitrate (Isordil) 20 mg PO DAILY [facility] Last Admin: 03/24/18 10:45 Dose: 20 mg Loperamide HCl (Imodium) 2 mg PO TID PRN PRN Reason: Diarrhea Metoprolol Tartrate (Lopressor) 25 mg PO BID [facility] Last Admin: 03/24/18 10:44 Dose: 25 mg Ondansetron HCl (Zofran Inj) 4 mg IVP Q6 PRN PRN Reason: Nausea/Vomiting Last Admin: 03/24/18 10:39 Dose: 4 mg Oxycodone/Acetaminophen (Percocet 5/325 Mg Tab) 2 tab PO Q6H PRN PRN Reason: Pain, severe (8-10) Stop: 03/27/18 10:26 Sevelamer Carbonate (Renvela) 2,400 mg PO TIDCC [facility] Last Admin: 03/24/18 09:09 Dose: Not Given Sucralfate (Carafate Tab) 1 gm PO ACTID [facility] Last Admin: 03/24/18 06:39 Dose: 1 gm Physical Exam - Constitutional Appears: Non-toxic - Head Exam Head Exam: NORMAL INSPECTION - Eye Exam Eye Exam: Normal appearance - ENT Exam ENT Exam: Mucous Membranes Moist - Neck Exam Neck exam: Positive for: Full Rom - Respiratory Exam Respiratory Exam: Decreased Breath Sounds, NORMAL BREATHING PATTERN - Cardiovascular Exam Cardiovascular Exam: REGULAR RHYTHM, Systolic Murmur - GI/Abdominal Exam GI & Abdominal Exam: Normal Bowel Sounds - Rectal Exam Rectal Exam: Deferred - Extremities Exam Extremities exam: Negative for: pedal edema - Back Exam Back exam: NORMAL INSPECTION - Neurological Exam Neurological exam: Alert, Oriented x3 - Psychiatric Exam Psychiatric exam: Normal Affect - Skin Skin Exam: Normal Color Results - Vital Signs Recent Vital Signs: Last Vital Signs Temp 97.9 F 03/24/18 07:00 Pulse 74 03/24/18 11:02 Resp 20 03/24/18 07:00 BP 148/87 03/24/18 11:02 Pulse Ox 95 03/24/18 07:00 - Labs Result Diagrams: 03/23/18 14:07 03/23/18 14:07 Labs: Laboratory Results - last 24 hr 03/23/18 03/23/18 03/23/18 14:07 14:07 22:55 WBC 3.0 L RBC 3.26 L Hgb 10.7 L D Hct 33.1 L MCV 101.6 H MCH 32.9 H MCHC 32.4 L RDW 15.4 H Plt Count 100 L MPV 8.6 Neut % (Auto) 70.5 Lymph % (Auto) 20.0 [place] % (Auto) 7.4 Eos % (Auto) 1.8 Baso % (Auto) 0.3 Neut # (Auto) 2.1 Lymph # (Auto) 0.6 L [place] # (Auto) 0.2 Eos # (Auto) 0.1 Baso # (Auto) 0.0 Differential Comment Sodium 136 Potassium 4.2 Chloride 94 L Carbon Dioxide 32 H Anion Gap 14 BUN 23 H Creatinine 2.2 H Est GFR ( Amer) 27 Est GFR (Non-Af Amer) 22 Random Glucose 88 Calcium 7.7 L Total Creatine Kinase 48 CK-MB (Mass) 0.95 Troponin I 0.0140 0.0410 - EKG Data EKG Interpreted by: Myself EKG shows normal: Sinus rhythm Assessment & Plan (1) Chest pain Assessment and Plan: likley due to rapid atrail fibrillation. medical therapy and blood pressure control. no ischemia on stress test last month Status: Acute (2) Atrial fibrillation Assessment and Plan: rate contol with betablocker. not idelal candidate for anticoagulation Status: Acute (3) 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 renal disease Assessment and Plan: blood pressure control Status: Acute
--- NOTE | 2018-03-24 14:48 | CP.PCM.CON ---
History of Present Illness - History of Present Illness History of Present Illness: 68 yo female, known to me. History of HTN, ESRD, afib, chronic lung disease, nephrogenic fibrosis, chronic pain syndrome. Presents post HD with palpitations, found to be in afib with RVR. Received medical management with improvement in rate. Recent stress test negative for ischemia. Pt with xray with pulmonary vascular congestion. Also being given Ceftriaxone. Review of Systems - Constitutional Constitutional: Fatigue. absent: Fever - EENT Eyes: absent: Blurred Vision, Discharge Nose/Mouth/Throat: absent: Nasal Congestion, Nasal Discharge - Cardiovascular Cardiovascular: Leg Edema, Palpitations - Respiratory Respiratory: absent: Hemoptysis, Stridor - Gastrointestinal Gastrointestinal: absent: Abdominal Pain, Bloating - Musculoskeletal Musculoskeletal: Arthralgias, Joint Swelling, Muscle Weakness, Myalgias - Hematologic/Lymphatic Hematologic: absent: Easy Bleeding, Easy Bruising Past Patient History - Infectious Disease Hx of Infectious Diseases: None - Tetanus Immunizations Tetanus Immunization: Unknown - Past Medical History & Family History Past Medical History?: Yes - Past Social History Smoking Status: Never Smoked - CARDIAC Hx Atrial Fibrillation: Yes Hx Cardia Arrhythmia: Yes Hx Congestive Heart Failure: Yes (A-fib, CAD) Hx Hypercholesterolemia: No Hx Hypertension: Yes Hx Pacemaker: Yes Hx Peripheral Edema: Yes - PULMONARY Hx Respiratory Disorders: Yes - NEUROLOGICAL Hx Neurological Disorder: Yes - HEENT Hx HEENT Problems: Yes - RENAL Hx Chronic Kidney Disease: Yes Hx Kidney Stones: Yes - ENDOCRINE/METABOLIC Hx Endocrine Disorders: No - HEMATOLOGICAL/ONCOLOGICAL Hx Anemia: Yes - INTEGUMENTARY Hx Dermatological Problems: Yes Other/Comment: Scleroderma of both arms/both legs - MUSCULOSKELETAL/RHEUMATOLOGICAL Hx Musculoskeletal Disorders: No Hx Falls: No - GASTROINTESTINAL Hx Gastrointestinal Disorders: Yes - GENITOURINARY/GYNECOLOGICAL Hx Sexually Transmitted Disorders: No - PSYCHIATRIC Hx Depression: Yes Hx Substance Use: No - SURGICAL HISTORY Hx Cholecystectomy: Yes - ANESTHESIA Hx Anesthesia: Yes Hx Anesthesia Reactions: No Hx Malignant Hyperthermia: No Meds Allergies/Adverse Reactions: Allergies Allergy/AdvReac Type Severity Reaction Status Date / Time vancomycin Allergy Severe ITCHING Verified 03/03/18 15:24 azithromycin Allergy ITCHING Verified 03/03/18 15:24 budesonide [From Symbicort] Allergy ITCHING Verified 03/03/18 15:24 formoterol [From Symbicort] Allergy ITCHING Verified 03/03/18 15:24 gabapentin Allergy Verified 03/23/18 13:38 - Medications Medications: Current Medications Amlodipine Besylate (Norvasc) 5 mg PO DAILY [facility] Last Admin: 03/24/18 10:44 Dose: 5 mg Aspirin (Aspirin) 325 mg PO DAILY [facility] Last Admin: 03/24/18 10:44 Dose: Not Given Calcium Acetate (Phoslo) 1,334 mg PO TIDCC [facility] Last Admin: 03/24/18 13:18 Dose: 1,334 mg Clopidogrel Bisulfate (Plavix) 75 mg PO DAILY [facility] Last Admin: 03/24/18 10:46 Dose: Not Given Heparin Sodium (Porcine) (Heparin) 5,000 units SC Q12 [facility] Last Admin: 03/24/18 10:46 Dose: Not Given Ceftriaxone Sodium 1 gm/ (Sodium Chloride) 100 mls @ 100 mls/hr IVPB DAILY [facility]; Protocol Last Admin: 03/24/18 10:45 Dose: 100 mls/hr Isosorbide Dinitrate (Isordil) 20 mg PO DAILY [facility] Last Admin: 03/24/18 10:45 Dose: 20 mg Loperamide HCl (Imodium) 2 mg PO TID PRN PRN Reason: Diarrhea Metoprolol Tartrate (Lopressor) 25 mg PO BID [facility] Last Admin: 03/24/18 10:44 Dose: 25 mg Ondansetron HCl (Zofran Inj) 4 mg IVP Q6 PRN PRN Reason: Nausea/Vomiting Last Admin: 03/24/18 10:39 Dose: 4 mg Oxycodone/Acetaminophen (Percocet 5/325 Mg Tab) 2 tab PO Q6H PRN PRN Reason: Pain, severe (8-10) Stop: 03/27/18 10:26 Sevelamer Carbonate (Renvela) 2,400 mg PO TIDCC [facility] Last Admin: 03/24/18 13:18 Dose: Not Given Sucralfate (Carafate Tab) 1 gm PO ACTID [facility] Last Admin: 03/24/18 13:18 Dose: 1 gm Physical Exam - Constitutional Appears: No Acute Distress, Chronically Ill - Head Exam Head Exam: ATRAUMATIC, NORMAL INSPECTION - Eye Exam Eye Exam: EOMI - ENT Exam ENT Exam: Mucous Membranes Moist - Neck Exam Neck exam: Positive for: Full Rom. Negative for: Lymphadenopathy - Respiratory Exam Respiratory Exam: Decreased Breath Sounds. absent: Rhonchi - Cardiovascular Exam Cardiovascular Exam: Irregular Rhythm. absent: Rubs - GI/Abdominal Exam GI & Abdominal Exam: Distended. absent: Guarding - Extremities Exam Extremities exam: Positive for: pedal edema - Neurological Exam Neurological exam: Alert, Oriented x3 - Psychiatric Exam Psychiatric exam: Normal Affect, Normal Mood Results - Vital Signs Recent Vital Signs: Last Vital Signs Temp 97.9 F 03/24/18 07:00 Pulse 74 03/24/18 11:02 Resp 20 03/24/18 07:00 BP 148/87 03/24/18 11:02 Pulse Ox 95 03/24/18 07:00 - Labs Result Diagrams: 03/23/18 14:07 03/23/18 14:07 Labs: Laboratory Results - last 24 hr 03/23/18 22:55 Total Creatine Kinase 48 CK-MB (Mass) 0.95 Troponin I 0.0410 Assessment & Plan - Assessment and Plan (Free Text) Assessment: ESRD afib with RVR, on medical management HTN history of hyperkalemia lung disease nephogenic fibrosis cardiology recommendations labs in am maint HD
--- NOTE | 2018-03-24 20:42 | CP.PCM.PN ---
Subjective - Date & Time of Evaluation Date of Evaluation: 03/24/18 Time of Evaluation: 09:00 - Subjective Subjective: clinically same Objective - Vital Signs/Intake and Output Vital Signs (last 24 hours): Temp Pulse Resp BP Pulse Ox 98 F 61 20 98/67 L 98 03/24/18 15:30 03/24/18 15:30 03/24/18 15:30 03/24/18 15:30 03/24/18 15:30 - Medications Medications: Current Medications Amlodipine Besylate (Norvasc) 5 mg PO DAILY [facility] Last Admin: 03/24/18 10:44 Dose: 5 mg Aspirin (Aspirin) 325 mg PO DAILY [facility] Last Admin: 03/24/18 10:44 Dose: Not Given Calcium Acetate (Phoslo) 1,334 mg PO TIDCC [facility] Last Admin: 03/24/18 13:18 Dose: 1,334 mg Clopidogrel Bisulfate (Plavix) 75 mg PO DAILY [facility] Last Admin: 03/24/18 10:46 Dose: Not Given Heparin Sodium (Porcine) (Heparin) 5,000 units SC Q12 [facility] Last Admin: 03/24/18 10:46 Dose: Not Given Ceftriaxone Sodium 1 gm/ (Sodium Chloride) 100 mls @ 100 mls/hr IVPB DAILY [facility]; Protocol Last Admin: 03/24/18 10:45 Dose: 100 mls/hr Isosorbide Dinitrate (Isordil) 20 mg PO DAILY [facility] Last Admin: 03/24/18 10:45 Dose: 20 mg Loperamide HCl (Imodium) 2 mg PO TID PRN PRN Reason: Diarrhea Metoprolol Tartrate (Lopressor) 25 mg PO BID [facility] Last Admin: 03/24/18 10:44 Dose: 25 mg Ondansetron HCl (Zofran Inj) 4 mg IVP Q6 PRN PRN Reason: Nausea/Vomiting Last Admin: 03/24/18 10:39 Dose: 4 mg Oxycodone/Acetaminophen (Percocet 5/325 Mg Tab) 2 tab PO Q6H PRN PRN Reason: Pain, severe (8-10) Stop: 03/27/18 10:26 Sevelamer Carbonate (Renvela) 2,400 mg PO TIDCC [facility] Last Admin: 03/24/18 13:18 Dose: Not Given Sucralfate (Carafate Tab) 1 gm PO ACTID [facility] Last Admin: 03/24/18 13:18 Dose: 1 gm - Labs Labs: 03/23/18 14:07 03/23/18 14:07
[2018-03-25 08:04] VITALS: RESP 18
[2018-03-25] MEDS: Oxycodone/Acetaminophen 5/325 mg Tab PO PRN ×2 (10:05→18:13)
--- NOTE | 2018-03-25 11:35 | CP.PCM.PN ---
Subjective - Date & Time of Evaluation Date of Evaluation: 03/25/18 Time of Evaluation: 11:32 - Subjective Subjective: events noted RVR, Afib controlled feels better now last HD on 03/23 not dyspneic lytes stable Objective - Vital Signs/Intake and Output Vital Signs (last 24 hours): Temp Pulse Resp BP Pulse Ox 97.7 F 65 18 125/74 95 03/25/18 07:00 03/25/18 08:00 03/25/18 07:00 03/25/18 10:10 03/25/18 08:00 Intake and Output: 03/25/18 03/25/18 06:59 18:59 Intake Total 520 Balance 520 - Medications Medications: Current Medications Amlodipine Besylate (Norvasc) 5 mg PO DAILY [facility] Last Admin: 03/25/18 10:10 Dose: Not Given Aspirin (Aspirin) 325 mg PO DAILY [facility] Last Admin: 03/25/18 10:04 Dose: 325 mg Calcium Acetate (Phoslo) 1,334 mg PO TIDCC [facility] Last Admin: 03/25/18 07:48 Dose: 1,334 mg Clopidogrel Bisulfate (Plavix) 75 mg PO DAILY [facility] Last Admin: 03/25/18 10:04 Dose: 75 mg Heparin Sodium (Porcine) (Heparin) 5,000 units SC Q12 [facility] Last Admin: 03/25/18 10:11 Dose: Not Given Ceftriaxone Sodium 1 gm/ (Sodium Chloride) 100 mls @ 100 mls/hr IVPB DAILY [facility]; Protocol Last Admin: 03/25/18 10:17 Dose: 100 mls/hr Isosorbide Dinitrate (Isordil) 20 mg PO DAILY [facility] Last Admin: 03/25/18 10:05 Dose: 20 mg Loperamide HCl (Imodium) 2 mg PO TID PRN PRN Reason: Diarrhea Metoprolol Tartrate (Lopressor) 25 mg PO BID [facility] Last Admin: 03/25/18 10:10 Dose: Not Given Ondansetron HCl (Zofran Inj) 4 mg IVP Q6 PRN PRN Reason: Nausea/Vomiting Last Admin: 03/24/18 10:39 Dose: 4 mg Oxycodone/Acetaminophen (Percocet 5/325 Mg Tab) 2 tab PO Q6H PRN PRN Reason: Pain, severe (8-10) Stop: 03/27/18 10:26 Last Admin: 03/25/18 10:05 Dose: 2 tab Sevelamer Carbonate (Renvela) 2,400 mg PO TIDCC [facility] Last Admin: 03/25/18 07:48 Dose: 2,400 mg Sucralfate (Carafate Tab) 1 gm PO ACTID [facility] Last Admin: 03/25/18 07:49 Dose: 1 gm - Labs Labs: 03/23/18 14:07 03/23/18 14:07 - Constitutional Appears: No Acute Distress, Chronically Ill - Head Exam Head Exam: ATRAUMATIC, NORMAL INSPECTION - Eye Exam Eye Exam: EOMI, Normal appearance - Neck Exam Neck Exam: absent: Tenderness - Respiratory Exam Respiratory Exam: Clear to Ausculation Bilateral, NORMAL BREATHING PATTERN - Cardiovascular Exam Cardiovascular Exam: Irregular Rhythm, +S1 - GI/Abdominal Exam GI & Abdominal Exam: Soft. absent: Tenderness - Extremities Exam Extremities Exam: Normal Inspection, Tenderness - Neurological Exam Neurological Exam: Awake, CN II-XII Intact - Skin Skin Exam: Dry, Warm Assessment and Plan (1) Atrial fibrillation with RVR Status: Acute (2) Anemia, chronic renal failure Status: Acute (3) ESRD (end stage renal disease) Status: Acute - Assessment and Plan (Free Text) Plan: Dialysis in AM, then TTS Rate control as per cardiology
--- NOTE | 2018-03-25 14:17 | CP.PCM.PN ---
Subjective - Date & Time of Evaluation Date of Evaluation: 03/25/18 Time of Evaluation: 14:17 Objective - Vital Signs/Intake and Output Vital Signs (last 24 hours): Temp Pulse Resp BP Pulse Ox 97.7 F 65 18 125/74 95 03/25/18 07:00 03/25/18 08:00 03/25/18 07:00 03/25/18 10:10 03/25/18 08:00 Intake and Output: 03/25/18 03/25/18 06:59 18:59 Intake Total 520 Balance 520 - Medications Medications: Current Medications Amlodipine Besylate (Norvasc) 5 mg PO DAILY [facility] Last Admin: 03/25/18 10:10 Dose: Not Given Aspirin (Aspirin) 325 mg PO DAILY [facility] Last Admin: 03/25/18 10:04 Dose: 325 mg Calcium Acetate (Phoslo) 1,334 mg PO TIDCC [facility] Last Admin: 03/25/18 12:36 Dose: Not Given Clopidogrel Bisulfate (Plavix) 75 mg PO DAILY [facility] Last Admin: 03/25/18 10:04 Dose: 75 mg Heparin Sodium (Porcine) (Heparin) 5,000 units SC Q12 [facility] Last Admin: 03/25/18 10:11 Dose: Not Given Ceftriaxone Sodium 1 gm/ (Sodium Chloride) 100 mls @ 100 mls/hr IVPB DAILY [facility]; Protocol Last Admin: 03/25/18 10:17 Dose: 100 mls/hr Isosorbide Dinitrate (Isordil) 20 mg PO DAILY [facility] Last Admin: 03/25/18 10:05 Dose: 20 mg Loperamide HCl (Imodium) 2 mg PO TID PRN PRN Reason: Diarrhea Metoprolol Tartrate (Lopressor) 25 mg PO BID [facility] Last Admin: 03/25/18 10:10 Dose: Not Given Ondansetron HCl (Zofran Inj) 4 mg IVP Q6 PRN PRN Reason: Nausea/Vomiting Last Admin: 03/24/18 10:39 Dose: 4 mg Oxycodone/Acetaminophen (Percocet 5/325 Mg Tab) 2 tab PO Q6H PRN PRN Reason: Pain, severe (8-10) Stop: 03/27/18 10:26 Last Admin: 03/25/18 10:05 Dose: 2 tab Sevelamer Carbonate (Renvela) 2,400 mg PO TIDCC [facility] Last Admin: 03/25/18 12:38 Dose: 2,400 mg Sucralfate (Carafate Tab) 1 gm PO ACTID [facility] Last Admin: 03/25/18 12:37 Dose: Not Given - Labs Labs: 03/23/18 14:07 03/23/18 14:07 Assessment and Plan - Assessment and Plan (Free Text) Assessment: FOLLOW UP WITH DR Moody WILLS IN 1-2 WEEK ----CALL FOR APPOITNEMNT FOLLOW UP WITH DR HEDRICK IN HIS OFFICE -----CALL FOR APPOINTMENT FOLLOW UP WITH DR COTO ----CALL FOR APPOINTMENT CONTINUE HOME MEDICATION ACTIVITY TOLERATED HEMODIALYSIS ORDER CALL DR Moody WILLS OR GO TO THE EMERGENCY ROOM IF SYMPTOM RETURN OR WORSENING
[2018-03-25 16:00] VITALS: TEMP 97.6; O2SAT 98
[2018-03-25 16:44] VITALS: PULSE 68
[2018-03-25 17:56] VITALS: BP 114/72
--- NOTE | 2018-03-25 18:08 | CP.PCM.PN ---
Subjective - Date & Time of Evaluation Date of Evaluation: 03/25/18 Time of Evaluation: 09:45 - Subjective Subjective: clinically same Objective - Vital Signs/Intake and Output Vital Signs (last 24 hours): Temp Pulse Resp BP Pulse Ox 97.6 F 68 18 114/72 98 03/25/18 15:00 03/25/18 15:25 03/25/18 15:00 03/25/18 17:56 03/25/18 15:25 Intake and Output: 03/25/18 03/25/18 06:59 18:59 Intake Total 520 Balance 520 - Medications Medications: Current Medications Amlodipine Besylate (Norvasc) 5 mg PO DAILY [facility] Last Admin: 03/25/18 10:10 Dose: Not Given Aspirin (Aspirin) 325 mg PO DAILY [facility] Last Admin: 03/25/18 10:04 Dose: 325 mg Calcium Acetate (Phoslo) 1,334 mg PO TIDCC [facility] Last Admin: 03/25/18 17:55 Dose: 1,334 mg Clopidogrel Bisulfate (Plavix) 75 mg PO DAILY [facility] Last Admin: 03/25/18 10:04 Dose: 75 mg Heparin Sodium (Porcine) (Heparin) 5,000 units SC Q12 [facility] Last Admin: 03/25/18 10:11 Dose: Not Given Ceftriaxone Sodium 1 gm/ (Sodium Chloride) 100 mls @ 100 mls/hr IVPB DAILY [facility]; Protocol Last Admin: 03/25/18 10:17 Dose: 100 mls/hr Isosorbide Dinitrate (Isordil) 20 mg PO DAILY [facility] Last Admin: 03/25/18 10:05 Dose: 20 mg Loperamide HCl (Imodium) 2 mg PO TID PRN PRN Reason: Diarrhea Metoprolol Tartrate (Lopressor) 25 mg PO BID [facility] Last Admin: 03/25/18 17:56 Dose: 25 mg Ondansetron HCl (Zofran Inj) 4 mg IVP Q6 PRN PRN Reason: Nausea/Vomiting Last Admin: 03/24/18 10:39 Dose: 4 mg Oxycodone/Acetaminophen (Percocet 5/325 Mg Tab) 2 tab PO Q6H PRN PRN Reason: Pain, severe (8-10) Stop: 03/27/18 10:26 Last Admin: 03/25/18 10:05 Dose: 2 tab Sevelamer Carbonate (Renvela) 2,400 mg PO TIDCC [facility] Last Admin: 03/25/18 17:58 Dose: 2,400 mg Sucralfate (Carafate Tab) 1 gm PO ACTID [facility] Last Admin: 03/25/18 17:30 Dose: 1 gm - Labs Labs: 03/23/18 14:07 03/23/18 14:07
--- NOTE | 2018-03-25 21:44 | CARD ---
APPROVED REPORT Date of service: 03/23/2018 EKG Measurement Heart [id number] <Conclusion> Atrial fibrillation with rapid ventricular response Right bundle branch block T wave abnormality, consider inferolateral ischemia Abnormal ECG
== END 2018-03-25 20:51 | disposition home or self-care (01) ==
LOC: C.ER 13:25 → C.9E 14:40 → C.5S 15:56
PROVIDERS: ADMIT Internal Medicine Nephrology; ATTEND Internal Medicine Nephrology
DX: R07.9 Chest pain, unspecified (principal); R06.00 Dyspnea, unspecified; I48.91 Unspecified atrial fibrillation; I13.2 Hypertensive heart and chronic kidney disease with heart failure and with stage 5 chronic kidney disease, or end stage renal disease; I50.9 Heart failure, unspecified; I45.10 Unspecified right bundle-branch block; G89.4 Chronic pain syndrome; D63.1 Anemia in chronic kidney disease; I25.10 Atherosclerotic heart disease of native coronary artery without angina pectoris; M34.9 Systemic sclerosis, unspecified; N18.6 End stage renal disease; Z87.442 Personal history of urinary calculi; Z90.49 Acquired absence of other specified parts of digestive tract
CPT/HCPCS: 36415; 71045; 80048; 84484; 85025; 93005; 96365; 96366; 96375; 99285; G0378; J0696; J1644; J2405; J7040

== ENCOUNTER 2018-07-13 09:41 | Observation (INO) | payer MEDICARE, OTHER ==
[2018-07-13 09:42] VITALS: PULSE 146; BMI 22.3
[2018-07-13 10:22] LABS: BASO % 0.4 % (0.0-2.0); EOS % 1.5 % (0.0-4.0); HEMOGLOBIN 11.2 g/dL (11.0-16.0); LYMPH # 0.7 K/uL (1.0-4.3); MEAN CELL VOLUME 102.8 fL (81.0-99.0); MEAN CORPUSCULAR HEMOGLOBIN 33.3 pg (27.0-31.0); MEAN CORPUSCULAR HGB CONC 32.4 g/dL (33.0-37.0); MEAN PLATELET VOLUME 8.5 fL (7.2-11.7); MONO # 0.3 K/uL (0.0-0.8); MONO % 9.1 % (0.0-10.0); NEUT # 2.1 K/uL (1.8-7.0); RBC 3.38 Mil/uL (3.80-5.20); RED CELL DISTRIBUTION WIDTH 15.4 % (11.5-14.5); WHITE BLOOD COUNT 3.1 K/uL (4.8-10.8)
[2018-07-13 10:34] LABS: INR 1.1; PROTHROMBIN TIME 12.2 SECONDS (9.7-12.2)
[2018-07-13 10:38] LABS: ALBUMIN 4.4 g/dL (3.5-5.0); BLOOD UREA NITROGEN 64 mg/dL (7-17); CALCIUM 7.8 mg/dl (8.6-10.4); GFR NON-AFRICAN AMERICAN 8
[2018-07-13 10:42] LABS: ALT/SGPT 12 U/L (9-52); AST/SGOT 29 U/L (14-36)
--- NOTE | 2018-07-13 10:44 | C.PDOC ---
History Of Present Illness 68 y/o female pt sent to the ER from dialysis center due to rapid a-fib found by nurse. Pt currently complains of palpitations and discomfort in her chest. Pt did not complete her dialysis today. She denies headache, SOB, fever, chills, cough, dizziness and light headedness. Breaker Off: Dr. Eng PMD: Dr. Newell Time Seen by Provider: 07/13/18 10:23 Chief Complaint (Nursing): Chest Pain History Per: Patient, EMS History/Exam Limitations: no limitations Current Symptoms Are (Timing): Still Present Past Medical History Reviewed: Historical Data, Nursing Documentation, Vital Signs Vital Signs: Last Vital Signs Temp 97.9 F 07/13/18 09:57 Pulse 104 H 07/13/18 09:57 Resp 20 07/13/18 09:57 BP 136/83 07/13/18 09:57 Pulse Ox 100 07/13/18 09:57 - Medical History PMH: Anemia, Arthritis, Asthma, Atrial Fibrillation, CAD, Cardia Arrhythmia, CHF (A-fib, CAD), COPD, Depression, HTN, Hyperlipidemia, Kidney Stones, Migraine, Osteoporosis, Pancreatitis, Peripheral Edema, End Stage Renal Disease, Chronic Kidney Disease Surgical History: Cholecystectomy, Endoscopy, Pacemaker - [facility] Procedures (03/03/18) ANGIOPLASTY OF OTHER NON-CORONARY VESSEL(S) (12/04/13) DIALYSIS ARTERIOVENOSTOM (12/04/13) DRAINAGE OF LEFT PLEURAL CAVITY, PERCUTANEOUS APPROACH (09/01/16) FLEXIBLE SIGMOIDOSCOPY (07/30/14) FLUOROSCOPY OF LEFT HEART USING LOW OSMOLAR CONTRAST (02/01/16) FLUOROSCOPY OF MULT COR ART USING L OSM CONTRAST (02/01/16) HEMODIALYSIS (09/30/14) INSEJ [id number] PERIPHERAL NON-CORONARY VES STENT(S) (12/04/13) INSERTION OF ONE VASCULAR STENT (12/04/13) MEASURE OF CARDIAC SAMPL & PRESSURE, L HEART, PERC APPROACH (02/01/16) OTHER ENDOSCOPY OF SM INTEST (07/30/14) PACKED CELL TRANSFUSION (09/30/14) PERFORMANCE OF URINARY FILTRATION, MULTIPLE (10/16/16) PERFORMANCE OF URINARY FILTRATION, SINGLE (09/28/16) PROCEDURE ON SINGLE VESSEL (12/04/13) RESPIRATORY VENTILATION, GREATER THAN 96 CONSECUTIVE HOURS (09/01/16) TRANSFUSE NONAUT PLATELETS IN PERIPH VEIN, PERC (09/01/16) VASC PROC REVISION NEC (12/04/13) VENOUS CATHETERIZATION FOR RENAL DIALYSIS (12/04/13) Family History: States: Unknown Family Hx - Social History Hx Tobacco Use: No Hx Alcohol Use: No Hx Substance Use: No - Immunization History Hx Tetanus Toxoid Vaccination: Yes Hx Influenza Vaccination: Yes Hx Pneumococcal Vaccination: Yes Review Of Systems Except As Marked, All Systems Reviewed And Found Negative. Constitutional: Negative for: Fever, Chills Cardiovascular: Positive for: Palpitations, Other (chest discomfort ). Negative for: Light Headedness Respiratory: Negative for: Cough, Shortness of Breath Neurological: Negative for: Headache, Dizziness ED Course And Treatment - Laboratory Results Result Diagrams: 07/13/18 10:15 07/13/18 10:15 Lab Results: PT 12.2 SECONDS (9.7-12.2) 07/13/18 10:15 INR 1.1 07/13/18 10:15 APTT 29.0 SECONDS (21-34) 07/13/18 10:15 Total Bilirubin 0.8 mg/dL (0.2-1.3) 07/13/18 10:15 AST 29 U/L (14-36) 07/13/18 10:15 ALT 12 U/L (9-52) 07/13/18 10:15 Alkaline Phosphatase 288 U/L (38-126) H 07/13/18 10:15 Total Protein 8.7 g/dL (6.3-8.3) H 07/13/18 10:15 Albumin 4.4 g/dL (3.5-5.0) 07/13/18 10:15 Globulin 4.4 gm/dL (2.2-3.9) H 07/13/18 10:15 Albumin/Globulin Ratio 1.0 (1.0-2.1) 07/13/18 10:15 ECG: Interpreted By Me, Viewed By Me ECG Rhythm: R BBB Interpretation Of ECG: T wave abnormality; heart rate irregularly regular Rate From EC O2 Sat by Pulse Oximetry: 100 (RA) Pulse Ox Interpretation: Normal - Other Rad chest X-Ray: Read By Radiologist Interpretation: Accession No. : [id number]. Patient Name / ID : MICHAEL SAMUEL / [id number]. Exam Date : 07/13/2018 10:46:24 ( Approved ). Study Comment : Sex / Age : F / 68Y. Creator : Tom Joya MD. Dictator : Tom Joya MD. Convention Services Director : Production Operator : Tom Joya MD. Approver2 : Report Date : 07/13/2018 16:27:04. My Comment : . Date of service: 07/13/2018. HISTORY: chest pain/palpitation. COMPARISON: 03/23/2018. TECHNIQUE: 1 view obtained. FINDINGS: LUNGS: Opacities at right base and left perihilar region. Possible pneumonia. Follow-up advised. PLEURA: Small bilateral pleural effusion. No p neumothorax. CARDIOVASCULAR: There is atherosclerotic calcification of the thoracic aorta. Normal cardiac size. Permanent pacemaker. No congestive change. OSSEOUS STRUCTURES: No significant abnormalities. VISUALIZED UPPER ABDOMEN: Normal. OTHER FINDINGS: None. IMPRESSION: Right basilar and left perihilar opacities. Possible pneumonia. Small bilateral pleural effusion. Progress Note: Plans: -- blood work. -- EKG. -- CXR. 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 Patient was accepted to [facility] for observation. 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 - Scribe Statement The provider has reviewed the documentation as recorded by the Erick Fischer Do All medical record entries made by the Scribe were at my direction and personally dictated by me. I have reviewed the chart and agree that the record accurately reflects my personal performance of the history, physical exam, medical decision making, and the department course for this patient. I have also personally directed, reviewed, and agree with the discharge instructions and disposition. Decision To Admit - Pt Status Changed To: Hospital Disposition Of: Observation - . Bed Request Type: Telemetry Admitting Physician: Porsha Newell Patient Diagnosis: Chest discomfort, ESRD on dialysis, Palpitations
[2018-07-13 10:48] LABS: B-TYPE NATRIURETIC PEPTIDE 34300 pg/mL (0-900); CK-MB 1.14 ng/mL (0.0-3.38)
[2018-07-13] MEDS ORDERED: Oxycodone/Acetaminophen 5/325 mg Tab PO STA (12:08)
[2018-07-13] MEDS ORDERED: Oxycodone/Acetaminophen 5/325 mg Tab ONE (12:15)
--- NOTE | 2018-07-13 16:30 | RAD ---
Date of service: 07/13/2018 HISTORY: chest pain/palpitation COMPARISON: 03/23/2018 TECHNIQUE: 1 view obtained. FINDINGS: LUNGS: Opacities at right base and left perihilar region. Possible pneumonia. Follow-up advised. PLEURA: Small bilateral pleural effusion. No pneumothorax. CARDIOVASCULAR: There is atherosclerotic calcification of the thoracic aorta. Normal cardiac size. Permanent pacemaker. No congestive change. OSSEOUS STRUCTURES: No significant abnormalities. VISUALIZED UPPER ABDOMEN: Normal. OTHER FINDINGS: None. IMPRESSION: Right basilar and left perihilar opacities. Possible pneumonia. Small bilateral pleural effusion.
--- NOTE | 2018-07-13 18:08 | CP.PCM.HP ---
History of Present Illness - History of Present Illness History of Present Illness: 68-year-old female with history of rheumatoid arthritis history of atrial fibrillation's on anti-coagulation history of CAD history of arrhythmias history of A. fib history of COPD history of depression history of hypertension history of hyperlipidemia history of kidney stone history of Edward migraine no history of osteoporotic porosis history of pancreatitis and many other multiple medical problems came in because of because of multiple medical problems came to the emergency room after patient found to have chest pain and sudden palpitations at the dialysis so patient was brought to the emergency [facility] [place] where patient was found to be in A. fib with mild RVR and patient did not complete the treatment Patient is has a chest pain patient denies vomiting Patient denies short of breath Patient is on multiple medications - Medical History PMH: Anemia, Arthritis, Asthma, Atrial Fibrillation, CAD, Cardia Arrhythmia, CHF (A-fib, CAD), COPD, Depression, HTN, Hyperlipidemia, Kidney Stones, Migraine, Osteoporosis, Pancreatitis, Peripheral Edema, End Stage Renal Disease, Chronic Kidney Disease Surgical History: Cholecystectomy, Endoscopy, Pacemaker - [facility] Procedures (03/03/18) ANGIOPLASTY OF OTHER NON-CORONARY VESSEL(S) (12/04/13) DIALYSIS ARTERIOVENOSTOM (12/04/13) DRAINAGE OF LEFT PLEURAL CAVITY, PERCUTANEOUS APPROACH (09/01/16) FLEXIBLE SIGMOIDOSCOPY (07/30/14) FLUOROSCOPY OF LEFT HEART USING LOW OSMOLAR CONTRAST (02/01/16) FLUOROSCOPY OF MULT COR ART USING L OSM CONTRAST (02/01/16) HEMODIALYSIS (09/30/14) INSEJ [id number] PERIPHERAL NON-CORONARY VES STENT(S) (12/04/13) INSERTION OF ONE VASCULAR STENT (12/04/13) MEASURE OF CARDIAC SAMPL & PRESSURE, L HEART, PERC APPROACH (02/01/16) OTHER ENDOSCOPY OF SM INTEST (07/30/14) PACKED CELL TRANSFUSION (09/30/14) PERFORMANCE OF URINARY FILTRATION, MULTIPLE (10/16/16) PERFORMANCE OF URINARY FILTRATION, SINGLE (09/28/16) PROCEDURE ON SINGLE VESSEL (12/04/13) RESPIRATORY VENTILATION, GREATER THAN 96 CONSECUTIVE HOURS (09/01/16) TRANSFUSE NONAUT PLATELETS IN PERIPH VEIN, PERC (09/01/16) VASC PROC REVISION NEC (12/04/13) VENOUS CATHETERIZATION FOR RENAL DIALYSIS (09/18/14) Family History: States: Unknown Family Hx - Social History Hx Tobacco Use: No Hx Alcohol Use: No Hx Substance Use: No - Immunization History Hx Tetanus Toxoid Vaccination: Yes Hx Influenza Vaccination: Yes Hx Pneumococcal Vaccination: Yes Review Of Systems Except As Marked, All Systems Reviewed And Found Negative. Constitutional: Negative for: Fever, Chills Cardiovascular: Positive for: Palpitations, Other (chest discomfort ). Negative for: Light Headedness Respiratory: Negative for: Cough, Shortness of Breath Neurological: Negative for: Headache, Dizzines Present on Admission - Present on Admission Any Indicators Present on Admission: No Past Patient History - Infectious Disease Hx of Infectious Diseases: None - Tetanus Immunizations Tetanus Immunization: Unknown - Past Medical History & Family History Past Medical History?: Yes - Past Social History Smoking Status: Never Smoked - CARDIAC Hx Atrial Fibrillation: Yes Hx Cardia Arrhythmia: Yes Hx Congestive Heart Failure: Yes (A-fib, CAD) Hx Hypertension: Yes Hx Pacemaker: Yes Hx Peripheral Edema: Yes - PULMONARY Hx Asthma: Yes Hx Chronic Obstructive Pulmonary Disease (COPD): Yes - NEUROLOGICAL Hx Migraine: Yes - HEENT Hx HEENT Problems: Yes - RENAL Hx Chronic Kidney Disease: Yes Hx Kidney Stones: Yes - ENDOCRINE/METABOLIC Hx Endocrine Disorders: No - HEMATOLOGICAL/ONCOLOGICAL Hx Anemia: Yes - INTEGUMENTARY Hx Dermatological Problems: Yes Other/Comment: Scleroderma of both arms/both legs - MUSCULOSKELETAL/RHEUMATOLOGICAL Hx Arthritis: Yes Hx Osteoporosis: Yes - GASTROINTESTINAL Hx Pancreatitis: Yes - GENITOURINARY/GYNECOLOGICAL Hx Sexually Transmitted Disorders: No - PSYCHIATRIC Hx Depression: Yes Hx Substance Use: No - SURGICAL HISTORY Hx Cholecystectomy: Yes - ANESTHESIA Hx Anesthesia: Yes Hx Anesthesia Reactions: No Hx Malignant Hyperthermia: No Meds Allergies/Adverse Reactions: Allergies Allergy/AdvReac Type Severity Reaction Status Date / Time vancomycin Allergy Severe ITCHING Verified 03/03/18 15:24 azithromycin Allergy ITCHING Verified 03/03/18 15:24 budesonide [From Symbicort] Allergy ITCHING Verified 03/03/18 15:24 formoterol [From Symbicort] Allergy ITCHING Verified 03/03/18 15:24 gabapentin Allergy Verified 03/23/18 13:38 Physical Exam - Constitutional Appears: Well - Head Exam Head Exam: ATRAUMATIC, NORMAL INSPECTION, NORMOCEPHALIC - Eye Exam Eye Exam: EOMI, Normal appearance, PERRL Pupil Exam: NORMAL ACCOMODATION, PERRL - ENT Exam ENT Exam: Mucous Membranes Moist, Normal Exam - Neck Exam Neck exam: Positive for: Normal Inspection - Respiratory Exam Respiratory Exam: Decreased Breath Sounds - Cardiovascular Exam Cardiovascular Exam: REGULAR RHYTHM, +S1, +S2 - GI/Abdominal Exam GI & Abdominal Exam: Diminished Bowel Sounds, Soft - Rectal Exam Rectal Exam: Deferred - Neurological Exam Neurological exam: Oriented x3 Results - Vital Signs Recent Vital Signs: Last Vital Signs Temp 97.7 F 07/13/18 15:23 Pulse 98 H 07/13/18 15:23 Resp 20 07/13/18 15:23 BP 92/60 L 07/13/18 17:45 Pulse Ox 100 07/13/18 16:31 - Labs Result Diagrams: 07/13/18 10:15 07/13/18 10:15 Labs: Laboratory Results - last 24 hr 07/13/18 07/13/18 07/13/18 10:15 10:15 10:15 WBC 3.1 L RBC 3.38 L Hgb 11.2 Hct 34.7 MCV 102.8 H MCH 33.3 H MCHC 32.4 L RDW 15.4 H Plt Count 87 L MPV 8.5 Neut % (Auto) 68.0 Lymph % (Auto) 21.0 [place]eman % (Auto) 9.1 Eos % (Auto) 1.5 Baso % (Auto) 0.4 Neut # (Auto) 2.1 Lymph # (Auto) 0.7 L Hardeman # (Auto) 0.3 Eos # (Auto) 0.0 Baso # (Auto) 0.0 PT 12.2 INR 1.1 APTT 29.0 Sodium 136 Potassium 4.6 Chloride 90 L Carbon Dioxide 31 H Anion Gap 19 BUN 64 H Creatinine 5.1 H Est GFR ( Amer) 10 Est GFR (Non-Af Amer) 8 Random Glucose 120 H D Calcium 7.8 L Total Bilirubin 0.8 AST 29 ALT 12 Alkaline Phosphatase 288 H Total Creatine Kinase 40 CK-MB (Mass) 1.14 Troponin I < 0.0120 NT-Pro-B Natriuret Pep 97323 H Total Protein 8.7 H Albumin 4.4 Globulin 4.4 H Albumin/Globulin Ratio 1.0 Assessment & Plan (1) Chest discomfort Status: Acute (2) ESRD (end stage renal disease) on dialysis Status: Acute (3) Palpitations Status: Acute (4) Palpitations Status: Acute (5) ACS (acute coronary syndrome) Status: Acute (6) Abdominal pain Status: Acute (7) Acute hyperkalemia Status: Acute (8) Anemia Status: Acute (9) Anemia, chronic renal failure Status: Acute (10) At high risk for hyperkalemia Status: Acute (11) Atrial fibrillation Status: Acute (12) Atrial fibrillation with RVR Status: Acute (13) Bradycardia Status: Acute (14) C. difficile colitis Status: Acute (15) CHF (congestive heart failure) Status: Acute (16) CHF (congestive heart failure) Status: Acute (17) CHF (congestive heart failure) Status: Acute (18) COPD (chronic obstructive pulmonary disease) Status: Acute (19) Chest pain Status: Acute (20) Chest pain Status: Acute (21) Chest pain Status: Acute (22) Chest pain Status: Acute (23) Chest pain at rest Status: Acute (24) Chills (without fever) Status: Acute (25) Chronic pain Status: Acute (26) Chronic pain Status: Acute (27) Coagulopathy Status: Acute (28) Constipation Status: Acute (29) DDD (degenerative disc disease), lumbosacral Status: Acute (30) Degenerative disc disease, lumbar Status: Acute Priority: Medium (31) Dyspnea Status: Acute (32) Dyspnea Status: Acute (33) ESRD (end stage renal disease) Status: Acute (34) ESRD needing dialysis Status: Acute (35) ESRD on hemodialysis Status: Acute (36) ESRD on hemodialysis Status: Acute (37) Elevated brain natriuretic peptide (BNP) level Status: Acute (38) Elevated lipase Status: Acute (39) Elevated serum globulin level Status: Acute (40) End stage renal disease Status: Acute (41) Epistaxis Status: Acute (42) Exacerbation of asthma Status: Acute (43) Failed kidney transplant Status: Acute (44) Fever Status: Acute (45) Fibrosing dermatitis Status: Acute (46) Fluid overload Status: Acute (47) GI bleed Status: Acute (48) Gastroenteritis Status: Acute (49) Gastrointestinal hemorrhage Status: Acute (50) Headache Status: Acute (51) Hyperkalemia Status: Acute (52) Hyperkalemia, diminished renal excretion Status: Acute (53) Hypertensive CKD, ESRD on dialysis Status: Acute (54) 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 renal disease Status: Acute (55) 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 renal disease Status: Acute (56) 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 renal disease Status: Acute (57) Hypotension Status: Acute (58) Intractable pain Status: Acute (59) Kidney transplant failure Status: Acute (60) Labile blood pressure Status: Acute (61) Leg pain Status: Acute (62) Missed dialysis Status: Acute (63) Narcotic withdrawal Status: Acute (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 (66) Pacemaker Status: Acute (67) Palpitations Status: Acute (68) Pancytopenia Status: Acute (69) Paroxysmal atrial fibrillation Status: Acute (70) Pleural effusion Status: Acute (71) Pneumonia Status: Acute (72) Prophylactic measure Status: Acute (73) Pulmonary HTN Status: Acute (74) Pulmonary edema Status: Acute (75) Rapid atrial fibrillation Status: Acute (76) Rectal bleeding Status: Acute (77) Rectal pain Status: Acute (78) Renal failure Status: Acute (79) Respiratory distress Status: Acute (80) Respiratory failure Status: Acute (81) Shortness of breath Status: Acute (82) Thrombocytopenia Status: Acute (83) Uncontrolled atrial fibrillation Status: Acute (84) Upper respiratory infection Status: Acute (85) Weakness Status: Acute (86) Back pain Status: Chronic (87) Benign hypertension with ESRD (end-stage renal disease) Status: Chronic (88) Chronic congestive heart failure Status: Chronic (89) Congestive heart failure Status: Chronic Priority: Medium (90) ESRD (end stage renal disease) Status: Chronic Priority: High (91) ESRD due to benign hypertension Status: Chronic (92) ESRD on dialysis Status: Chronic Priority: Medium (93) End stage renal failure on dialysis Status: Chronic (94) HTN (hypertension) Status: Chronic (95) Nephrogenic fibrosing dermopathy Status: Chronic (96) Scleroderma Status: Chronic (97) Sclerosis of the skin Status: Chronic Priority: High - Assessment and Plan (Free Text) Plan: Plan of care discussed with the patient's Family is not bedside Patient is eager to go home Plan renal diet Acetaminophen Amlodipine Aspirin PhosLo Plavix Pepcid Neurontin Imdur Levoxyl Meclizine Metoprolol secondary to patient has a palpitations Percocet 2 tablet p.o. every 6 as needed is 1 tablet does not help Prochlorperazine Renvela Hemodialysis as per renal No hemoglobin hematocrit 11.2 and 34.7 respectively Bicarbonate 31 Creatinine 5.1 We will start the patient's back on the anticoagulation patient was discharged on the last admission with the anticoagulations proBNP is 34,300 Patient's to go for the hemodialysis if shortness of breath Follow-up with renal for hemodialysis
[2018-07-13] MEDS: Oxycodone/Acetaminophen 5/325 mg Tab PO PRN (23:50)
[2018-07-14] MEDS: Levothyroxine 25 MCG TAB PO SCH (05:53)
[2018-07-14] MEDS: Oxycodone/Acetaminophen 5/325 mg Tab PO PRN (05:55)
[2018-07-14] MEDS ORDERED: Oxycodone/Acetaminophen 5/325 mg Tab PO PRN (07:50)
[2018-07-14] MEDS: Latanoprost 2.5 ml Opht Soln OU SCH (09:39)
--- NOTE | 2018-07-14 12:28 | CP.PCM.CON ---
History of Present Illness - History of Present Illness History of Present Illness: I was asked to see patient by Dr Moody Newell Patient seen 07/14/18 [id number] Patient is a 68 year old female with HTN, ESRD on HD who presents with palpitations. She describes the onset of rapid heart rate, with symptoms occurring at rest. She was dyspneic. She denies chest pain. Review of Systems - Constitutional Constitutional: absent: As Per HPI, Anorexia, Chills, Daytime Sleepiness, Excessive Sweating, Fatigue, Fever, Frequent Falls, Headache, Increased Appetite, Lethargy, Malaise, Night Sweats, Snoring, Sleep Apnea, Weight Gain, Weight Loss, Weakness, Other - EENT Eyes: absent: As Per HPI, Blind Spots, Blurred Vision, Change in Vision, Decreased Night Vision, Diplopia, Discharge, Dry Eye, Exophthalmos, Floaters, Irritation, Itchy Eyes, Loss of Peripheral Vision, Pain, Photophobia, Requires Corrective Lenses, Sees Flashes, Spots in Vision, Tunnel Vision, Other Visual Disturbances, Loss of Vision, Other Ears: absent: As Per HPI, Decreased Hearing, Ear Discharge, Ear Pain, Tinnitus, Abnormal Hearing, Disequilibrium, Dizziness, Other Nose/Mouth/Throat: absent: As Per HPI, Epistaxis, Nasal Congestion, Nasal Discharge, Nasal Obstruction, Nasal Trauma, Nose Pain, Post Nasal Drip, Sinus Pain, Sinus Pressure, Bleeding Gums, Change in Voice, Dental Pain, Dry Mouth, Dysphagia, Halitosis, Hoarsness, Lip Swelling, Mouth Lesions, Mouth Pain, Odynophagia, Sore Throat, Throat Swelling, Tongue Swelling, Facial Pain, Neck Pain, Neck Mass, Other - Cardiovascular Cardiovascular: absent: As Per HPI, Acrocyanosis, Chest Pain, Chest Pain at Rest, Chest Pain with Activity, Claudication, Diaphoresis, Dyspnea, Dyspnea on Exertion, Edema, Irregular Heart Rhythm, Pain Radiating to Arm/Neck/Jaw, Leg Edema, Leg Ulcers, Lightheadedness, Orthopnea, Palpitations, Paroxysmal Nocturnal Dyspnea, Pedal Edema, Radiating Pain, Rapid Heart Rate, Slow Heart Rate, Syncope, Other - Respiratory Respiratory: absent: As Per HPI, Cough, Dyspnea, Hemoptysis, Dyspnea on Exertion, Wheezing, Snoring, Stridor, Pain on Inspiration, Chest Congestion, Excessive Mucous Production, Change in Mucous Color, Pain with Coughing, Other - Gastrointestinal Gastrointestinal: absent: As Per HPI, Abdominal Pain, Belching, Bloating, Change in Bowel Habits, Change in Stool Character, Coffee Ground Emesis, Constipation, Cramping, Diarrhea, Dyspepsia, Dysphagia, Early Satiety, Excessive Flatus, Fecal Incontinence, Heartburn, Hematemesis, Hematochezia, Loose Stools, Melena, Nausea, Odynophagia, Temesmus, Vomiting, Other - Genitourinary Genitourinary: absent: As Per HPI, Change in Urinary Stream, Difficulty Urinating, Dysuria, Flank Pain, Hematuria, Pyuria, Nocturia, Urinary Incontinence, Urinary Frequency, Urinary Hesitance, Urinary Urgency, Voiding Freq/Small Amts, Freq UTI, Hx Renal/Bladder Calculi, Hx /Renal Surgery, Bladder Distension, Other - Musculoskeletal Musculoskeletal: absent: As Per HPI, Abnormal Gait, Arthralgias, Atrophy, Back Pain, Deformity, Joint Swelling, Limited Range of Motion, Loss of Height, Muscle Cramps, Muscle Weakness, Myalgias, Neck Pain, Numbness, Radiating Pain into Limon b, Stiffness, Tingling, Other - Integumentary Integumentary: absent: As Per HPI, Acne, Alopecia, Bleeding Lesions, Change in Hair, Change in Nails, Change in Pigmentation, Changing Lesions, Dry Skin, Erythema, Furuncle, Hirsutism, Lesions, New Lesions, Non-Healing Lesions, Photosensitivity, Pruritus, Rash, Skin Pain, Skin Ulcer, Sores, Striae, Swelling, Unusual Bruising, Wounds, Jaundice, Other - Neurological Neurological: absent: As Per HPI, Abnormal Gait, Abnormal Hearing, Abnormal Movements, Abnormal Speech, Behavioral Changes, Burning Sensations, Confusion, Convulsions, Disequilibrium, Dizziness, Numbness, Focal Weakness, Frequent Falls, Headaches, Lack of Coordination, Loss of Vision, Memory Loss, Paresthesi as, Radicular Pain, Restless Legs, Sensory Deficit, Syncope, Tingling, Tremor, Vertigo, Weakness, Other Visual Disturbances, Other - Psychiatric Psychiatric: absent: As Per HPI, Abnormal Sleep Pattern, Anhedonia, Anxiety, Auditory Hallucinations, Behavioral Changes, Change in Appetite, Change in Libido, Confusion, Depression, Difficulty Concentrating, Hallucinations, Homicidal Ideation, Hopelessness, Irritability, Memory Loss, Mood Swings, Panic Attacks, Paranoia, Suicidal Ideation, Visual Hallucinations, Tactile Hallucinations, Other - Endocrine Endocrine: absent: As Per HPI, Change in Body Appearance, Change in Libido, Cold Intolorance, Deepening of Voice, Excessive Sweating, Fatigue, Flushing, Heat Intolorance, Increase in Ring/Shoe/Hat Size, Palpitations, Polydipsia, Polyphagia, Polyuria, Other - Hematologic/Lymphatic Hematologic: absent: As Per HPI, Easy Bleeding, Easy Bruising, Lymphadenopathy, Other Past Patient History - Infectious Disease Hx of Infectious Diseases: None - Tetanus Immunizations Tetanus Immunization: Unknown - Past Medical History & Family History Past Medical History?: Yes - Past Social History Smoking Status: Never Smoked - CARDIAC Hx Atrial Fibrillation: Yes Hx Cardia Arrhythmia: Yes Hx Congestive Heart Failure: Yes (A-fib, CAD) Hx Hypertension: Yes Hx Pacemaker: Yes Hx Peripheral Edema: Yes - PULMONARY Hx Asthma: Yes Hx Chronic Obstructive Pulmonary Disease (COPD): Yes - NEUROLOGICAL Hx Migraine: Yes - HEENT Hx HEENT Problems: Yes - RENAL Hx Chronic Kidney Disease: Yes Hx Kidney Stones: Yes - ENDOCRINE/METABOLIC Hx Endocrine Disorders: No - HEMATOLOGICAL/ONCOLOGICAL Hx Anemia: Yes - INTEGUMENTARY Hx Dermatological Problems: Yes Other/Comment: Scleroderma of both arms/both legs - MUSCULOSKELETAL/RHEUMATOLOGICAL Hx Arthritis: Yes Hx Osteoporosis: Yes - GASTROINTESTINAL Hx Pancreatitis: Yes - GENITOURINARY/GYNECOLOGICAL Hx Sexually Transmitted Disorders: No - PSYCHIATRIC Hx Depression: Yes Hx Substance Use: No - SURGICAL HISTORY Hx Cholecystectomy: Yes - ANESTHESIA Hx Anesthesia: Yes Hx Anesthesia Reactions: No Hx Malignant Hyperthermia: No Meds Allergies/Adverse Reactions: Allergies Allergy/AdvReac Type Severity Reaction Status Date / Time vancomycin Allergy Severe ITCHING Verified 03/03/18 15:24 azithromycin Allergy ITCHING Verified 03/03/18 15:24 budesonide [From Symbicort] Allergy ITCHING Verified 03/03/18 15:24 formoterol [From Symbicort] Allergy ITCHING Verified 03/03/18 15:24 gabapentin Allergy Verified 03/23/18 13:38 - Medications Medications: Current Medications Acetaminophen (Tylenol 325mg Tab) 325 mg PO Q8 PRN PRN Reason: Pain, moderate (4-7) Amlodipine Besylate (Norvasc) 5 mg PO DAILY [facility] Last Admin: 07/14/18 09:38 Dose: 5 mg Aspirin (Aspirin Chewable) 81 mg PO DAILY [facility] Last Admin: 07/14/18 09:37 Dose: 81 mg Calcium Acetate (Phoslo) 1,334 mg PO TIDCC [facility] Last Admin: 07/14/18 09:35 Dose: 1,334 mg Clopidogrel Bisulfate (Plavix) 75 mg PO DAILY [facility] Last Admin: 07/14/18 09:38 Dose: 75 mg Famotidine (Pepcid) 20 mg PO DAILY [facility] Last Admin: 07/14/18 09:38 Dose: 20 mg Gabapentin (Neurontin) 300 mg PO DAILY [facility] Last Admin: 07/14/18 09:37 Dose: 300 mg Isosorbide Dinitrate (Isordil) 20 mg PO DAILY [facility] Last Admin: 07/14/18 09:39 Dose: 20 mg Latanoprost (Xalatan Opht) 0.05 ml OU DAILY [facility] Last Admin: 07/14/18 09:39 Dose: 0.05 ml Levothyroxine Sodium (Synthroid) 25 mcg PO DAILY@0630 [facility] Last Admin: 07/14/18 05:53 Dose: 25 mcg Meclizine HCl (Antivert) 25 mg PO DAILY [facility] Last Admin: 07/14/18 09:37 Dose: 25 mg Metoprolol Tartrate (Lopressor) 25 mg PO BID [facility] Last Admin: 07/14/18 09:38 Dose: 25 mg Oxycodone/Acetaminophen (Percocet 5/325 Mg Tab) 2 tab PO Q6H PRN PRN Reason: Pain, severe (8-10) Stop: 07/16/18 18:09 Prochlorperazine (Compazine) 10 mg PO BID [facility] Last Admin: 07/14/18 09:39 Dose: 10 mg Sevelamer Carbonate (Renvela) 2,400 mg PO TIDCC [facility] Last Admin: 07/14/18 09:35 Dose: 2,400 mg Physical Exam - Constitutional Appears: Non-toxic - Head Exam Head Exam: NORMAL INSPECTION - Eye Exam Eye Exam: Normal appearance - ENT Exam ENT Exam: Mucous Membranes Moist - Neck Exam Neck exam: Positive for: Full Rom - Respiratory Exam Respiratory Exam: NORMAL BREATHING PATTERN - Cardiovascular Exam Cardiovascular Exam: REGULAR RHYTHM - GI/Abdominal Exam GI & Abdominal Exam: Normal Bowel Sounds - Rectal Exam Rectal Exam: Deferred - Extremities Exam Extremities exam: Negative for: pedal edema - Back Exam Back exam: NORMAL INSPECTION - Neurological Exam Neurological exam: Alert, Oriented x3 - Psychiatric Exam Psychiatric exam: Normal Affect - Skin Skin Exam: Normal Color Results - Vital Signs Recent Vital Signs: Last Vital Signs Temp 97.9 F 07/13/18 23:00 Pulse 87 07/14/18 04:41 Resp 20 07/13/18 23:00 BP 113/74 07/14/18 09:38 Pulse Ox 100 07/14/18 11:04 - Labs Result Diagrams: 07/13/18 10:15 07/13/18 10:15 - EKG Data EKG Interpreted by: Myself EKG shows normal: Sinus rhythm Assessment & Plan (1) Palpitations Assessment and Plan: currently in sinus rhythm. recommend medical therapy with betablocker. schedule outpatient holter. stable for d/c from cardiac standpoint Status: Acute (2) HTN (hypertension) Assessment and Plan: blood pressure control Status: Chronic
--- NOTE | 2018-07-14 12:36 | CP.PCM.CON ---
History of Present Illness - History of Present Illness History of Present Illness: consult for dialysis management 68 yo female, known to me, history of ESRD, HTN, NSF, afib, coronary stent, pulmonary HTN. Pt had chest pain associated with afib with RVR at outpatient HD yesterday, did not complete treatment. Pt with rate control at present, on B natan. Tolerated HD yesterday with 3 kg UF. Unclear if she took her medicines yesterday morning. She is eager to go home now and denies any further complaints. Baseline with minimally ambulatory status. Review of Systems - Constitutional Constitutional: Headache. absent: Fever - Cardiovascular Cardiovascular: As Per HPI - Respiratory Respiratory: absent: Cough, Dyspnea - Gastrointestinal Gastrointestinal: absent: Abdominal Pain, Belching - Musculoskeletal Musculoskeletal: Arthralgias, Atrophy, Muscle Weakness, Myalgias - Neurological Neurological: absent: Confusion, Convulsions Past Patient History - Infectious Disease Hx of Infectious Diseases: None - Tetanus Immunizations Tetanus Immunization: Unknown - Past Medical History & Family History Past Medical History?: Yes - Past Social History Smoking Status: Never Smoked - CARDIAC Hx Atrial Fibrillation: Yes Hx Cardia Arrhythmia: Yes Hx Congestive Heart Failure: Yes (A-fib, CAD) Hx Hypertension: Yes Hx Pacemaker: Yes Hx Peripheral Edema: Yes - PULMONARY Hx Asthma: Yes Hx Chronic Obstructive Pulmonary Disease (COPD): Yes - NEUROLOGICAL Hx Migraine: Yes - HEENT Hx HEENT Problems: Yes - RENAL Hx Chronic Kidney Disease: Yes Hx Kidney Stones: Yes - ENDOCRINE/METABOLIC Hx Endocrine Disorders: No - HEMATOLOGICAL/ONCOLOGICAL Hx Anemia: Yes - INTEGUMENTARY Hx Dermatological Problems: Yes Other/Comment: Scleroderma of both arms/both legs - MUSCULOSKELETAL/RHEUMATOLOGICAL Hx Arthritis: Yes Hx Osteoporosis: Yes - GASTROINTESTINAL Hx Pancreatitis: Yes - GENITOURINARY/GYNECOLOGICAL Hx Sexually Transmitted Disorders: No - PSYCHIATRIC Hx Depression: Yes Hx Substance Use: No - SURGICAL HISTORY Hx Cholecystectomy: Yes - ANESTHESIA Hx Anesthesia: Yes Hx Anesthesia Reactions: No Hx Malignant Hyperthermia: No Meds Allergies/Adverse Reactions: Allergies Allergy/AdvReac Type Severity Reaction Status Date / Time vancomycin Allergy Severe ITCHING Verified 03/03/18 15:24 azithromycin Allergy ITCHING Verified 03/03/18 15:24 budesonide [From Symbicort] Allergy ITCHING Verified 03/03/18 15:24 formoterol [From Symbicort] Allergy ITCHING Verified 03/03/18 15:24 gabapentin Allergy Verified 03/23/18 13:38 - Medications Medications: Current Medications Acetaminophen (Tylenol 325mg Tab) 325 mg PO Q8 PRN PRN Reason: Pain, moderate (4-7) Amlodipine Besylate (Norvasc) 5 mg PO DAILY [facility] Last Admin: 07/14/18 09:38 Dose: 5 mg Aspirin (Aspirin Chewable) 81 mg PO DAILY [facility] Last Admin: 07/14/18 09:37 Dose: 81 mg Calcium Acetate (Phoslo) 1,334 mg PO TIDCC [facility] Last Admin: 07/14/18 09:35 Dose: 1,334 mg Clopidogrel Bisulfate (Plavix) 75 mg PO DAILY [facility] Last Admin: 07/14/18 09:38 Dose: 75 mg Famotidine (Pepcid) 20 mg PO DAILY [facility] Last Admin: 07/14/18 09:38 Dose: 20 mg Gabapentin (Neurontin) 300 mg PO DAILY [facility] Last Admin: 07/14/18 09:37 Dose: 300 mg Isosorbide Dinitrate (Isordil) 20 mg PO DAILY [facility] Last Admin: 07/14/18 09:39 Dose: 20 mg Latanoprost (Xalatan Opht) 0.05 ml OU DAILY [facility] Last Admin: 07/14/18 09:39 Dose: 0.05 ml Levothyroxine Sodium (Synthroid) 25 mcg PO DAILY@0630 [facility] Last Admin: 07/14/18 05:53 Dose: 25 mcg Meclizine HCl (Antivert) 25 mg PO DAILY [facility] Last Admin: 07/14/18 09:37 Dose: 25 mg Metoprolol Tartrate (Lopressor) 25 mg PO BID [facility] Last Admin: 07/14/18 09:38 Dose: 25 mg Oxycodone/Acetaminophen (Percocet 5/325 Mg Tab) 2 tab PO Q6H PRN PRN Reason: Pain, severe (8-10) Stop: 07/16/18 18:09 Prochlorperazine (Compazine) 10 mg PO BID [facility] Last Admin: 07/14/18 09:39 Dose: 10 mg Sevelamer Carbonate (Renvela) 2,400 mg PO TIDCC [facility] Last Admin: 07/14/18 09:35 Dose: 2,400 mg Physical Exam - Constitutional Appears: No Acute Distress, Chronically Ill - Head Exam Head Exam: ATRAUMATIC, NORMAL INSPECTION - Eye Exam Eye Exam: EOMI, Normal appearance - ENT Exam ENT Exam: Mucous Membranes Moist - Neck Exam Neck exam: Positive for: Full Rom. Negative for: Lymphadenopathy - Respiratory Exam Respiratory Exam: Rales. absent: Accessory Muscle Use - Cardiovascular Exam Cardiovascular Exam: REGULAR RHYTHM. absent: Rubs - GI/Abdominal Exam GI & Abdominal Exam: Normal Bowel Sounds. absent: Distended - Extremities Exam Extremities exam: Positive for: pedal edema - Neurological Exam Neurological exam: Alert, Oriented x3 - Skin Additional comments: hardened, chronic edema, hyperpigmented Results - Vital Signs Recent Vital Signs: Last Vital Signs Temp 97.9 F 07/13/18 23:00 Pulse 87 07/14/18 04:41 Resp 20 07/13/18 23:00 BP 113/74 07/14/18 09:38 Pulse Ox 100 07/14/18 11:04 - Labs Result Diagrams: 07/13/18 10:15 07/13/18 10:15 Assessment & Plan - Assessment and Plan (Free Text) Assessment: esrd, maint hd, next on Sunday medical management of chest pain and afib continue present
--- NOTE | 2018-07-14 19:48 | CP.PCM.PN ---
Subjective - Date & Time of Evaluation Date of Evaluation: 07/14/18 Time of Evaluation: 10:00 - Subjective Subjective: No nausea No chest pain anymore Patient occasionally has a palpitation Patient went to see autism specialist as an outpatient in the clinic No fever Possible discharge tomorrow Patient is getting 2 Percocet tablets and pain is under control Objective - Vital Signs/Intake and Output Vital Signs (last 24 hours): Temp Pulse Resp BP Pulse Ox 98.5 F 65 20 92/59 L 96 07/14/18 15:00 07/14/18 15:00 07/14/18 15:00 07/14/18 17:22 07/14/18 15:00 - Medications Medications: Current Medications Acetaminophen (Tylenol 325mg Tab) 325 mg PO Q8 PRN PRN Reason: Pain, moderate (4-7) Amlodipine Besylate (Norvasc) 5 mg PO DAILY [facility] Last Admin: 07/14/18 09:38 Dose: 5 mg Aspirin (Aspirin Chewable) 81 mg PO DAILY [facility] Last Admin: 07/14/18 09:37 Dose: 81 mg Calcium Acetate (Phoslo) 1,334 mg PO TIDCC [facility] Last Admin: 07/14/18 17:48 Dose: 1,334 mg Clopidogrel Bisulfate (Plavix) 75 mg PO DAILY [facility] Last Admin: 07/14/18 09:38 Dose: 75 mg Famotidine (Pepcid) 20 mg PO DAILY [facility] Last Admin: 07/14/18 09:38 Dose: 20 mg Gabapentin (Neurontin) 300 mg PO DAILY [facility] Last Admin: 07/14/18 09:37 Dose: 300 mg Isosorbide Dinitrate (Isordil) 20 mg PO DAILY [facility] Last Admin: 07/14/18 09:39 Dose: 20 mg Latanoprost (Xalatan Opht) 0.05 ml OU DAILY [facility] Last Admin: 07/14/18 09:39 Dose: 0.05 ml Levothyroxine Sodium (Synthroid) 25 mcg PO DAILY@0630 [facility] Last Admin: 07/14/18 05:53 Dose: 25 mcg Meclizine HCl (Antivert) 25 mg PO DAILY [facility] Last Admin: 07/14/18 09:37 Dose: 25 mg Metoprolol Tartrate (Lopressor) 25 mg PO BID [facility] Last Admin: 07/14/18 17:22 Dose: Not Given Oxycodone/Acetaminophen (Percocet 5/325 Mg Tab) 2 tab PO Q6H PRN PRN Reason: Pain, severe (8-10) Stop: 07/16/18 18:09 Prochlorperazine (Compazine) 10 mg PO BID [facility] Last Admin: 07/14/18 17:54 Dose: 10 mg Sevelamer Carbonate (Renvela) 2,400 mg PO TIDCC [facility] Last Admin: 07/14/18 17:48 Dose: 2,400 mg - Labs Labs: 07/13/18 10:15 07/13/18 10:15 PT 12.2 SECONDS (9.7-12.2) 07/13/18 10:15 INR 1.1 07/13/18 10:15 APTT 29.0 SECONDS (21-34) 07/13/18 10:15 - Constitutional Appears: Well - Head Exam Head Exam: ATRAUMATIC, NORMAL INSPECTION, NORMOCEPHALIC - Eye Exam Eye Exam: EOMI, Normal appearance, PERRL Pupil Exam: NORMAL ACCOMODATION, PERRL - ENT Exam ENT Exam: Mucous Membranes Moist, Normal Exam - Neck Exam Neck Exam: Full ROM, Normal Inspection. absent: Lymphadenopathy - Respiratory Exam Respiratory Exam: Decreased Breath Sounds - Cardiovascular Exam Cardiovascular Exam: REGULAR RHYTHM, +S1, +S2 - GI/Abdominal Exam GI & Abdominal Exam: Soft, Diminished Bowel Sounds - Rectal Exam Rectal Exam: Deferred - Neurological Exam Neurological Exam: Oriented x3 Assessment and Plan (1) Chest discomfort Status: Acute (2) ESRD (end stage renal disease) on dialysis Status: Acute (3) Palpitations Status: Acute (4) Palpitations Status: Acute (5) ACS (acute coronary syndrome) Status: Acute (6) Abdominal pain Status: Acute (7) Acute hyperkalemia Status: Acute (8) Anemia Status: Acute (9) Anemia, chronic renal failure Status: Acute (10) At high risk for hyperkalemia Status: Acute (11) Atrial fibrillation Status: Acute (12) Atrial fibrillation with RVR Status: Acute (13) Bradycardia Status: Acute (14) C. difficile colitis Status: Acute (15) CHF (congestive heart failure) Status: Acute (16) CHF (congestive heart failure) Status: Acute (17) CHF (congestive heart failure) Status: Acute (18) COPD (chronic obstructive pulmonary disease) Status: Acute (19) Chest pain Status: Acute (20) Chest pain Status: Acute (21) Chest pain Status: Acute (22) Chest pain Status: Acute (23) Chest pain at rest Status: Acute (24) Chills (without fever) Status: Acute (25) Chronic pain Status: Acute (26) Chronic pain Status: Acute (27) Coagulopathy Status: Acute (28) Constipation Status: Acute (29) DDD (degenerative disc disease), lumbosacral Status: Acute (30) Degenerative disc disease, lumbar Status: Acute (31) Dyspnea Status: Acute (32) Dyspnea Status: Acute (33) ESRD (end stage renal disease) Status: Acute (34) ESRD needing dialysis Status: Acute (35) ESRD on hemodialysis Status: Acute (36) ESRD on hemodialysis Status: Acute (37) Elevated brain natriuretic peptide (BNP) level Status: Acute (38) Elevated lipase Status: Acute (39) Elevated serum globulin level Status: Acute (40) End stage renal disease Status: Acute (41) Epistaxis Status: Acute (42) Exacerbation of asthma Status: Acute (43) Failed kidney transplant Status: Acute (44) Fever Status: Acute (45) Fibrosing dermatitis Status: Acute (46) Fluid overload Status: Acute (47) GI bleed Status: Acute (48) Gastroenteritis Status: Acute (49) Gastrointestinal hemorrhage Status: Acute (50) Headache Status: Acute (51) Hyperkalemia Status: Acute (52) Hyperkalemia, diminished renal excretion Status: Acute (53) Hypertensive CKD, ESRD on dialysis Status: Acute (54) 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 renal disease Status: Acute (55) 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 renal disease Status: Acute (56) 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 renal disease Status: Acute (57) Hypotension Status: Acute (58) Intractable pain Status: Acute (59) Kidney transplant failure Status: Acute (60) Labile blood pressure Status: Acute (61) Leg pain Status: Acute (62) Missed dialysis Status: Acute (63) Narcotic withdrawal Status: Acute (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 (66) Pacemaker Status: Acute (67) Palpitations Status: Acute (68) Pancytopenia Status: Acute (69) Paroxysmal atrial fibrillation Status: Acute (70) Pleural effusion Status: Acute (71) Pneumonia Status: Acute (72) Prophylactic measure Status: Acute (73) Pulmonary HTN Status: Acute (74) Pulmonary edema Status: Acute (75) Rapid atrial fibrillation Status: Acute (76) Rectal bleeding Status: Acute (77) Rectal pain Status: Acute (78) Renal failure Status: Acute (79) Respiratory distress Status: Acute (80) Respiratory failure Status: Acute (81) Shortness of breath Status: Acute (82) Thrombocytopenia Status: Acute (83) Uncontrolled atrial fibrillation Status: Acute (84) Upper respiratory infection Status: Acute (85) Weakness Status: Acute (86) Back pain Status: Chronic (87) Benign hypertension with ESRD (end-stage renal disease) Status: Chronic (88) Chronic congestive heart failure Status: Chronic (89) Congestive heart failure Status: Chronic (90) ESRD (end stage renal disease) Status: Chronic (91) ESRD due to benign hypertension Status: Chronic (92) ESRD on dialysis Status: Chronic (93) End stage renal failure on dialysis Status: Chronic (94) HTN (hypertension) Status: Chronic (95) Nephrogenic fibrosing dermopathy Status: Chronic (96) Scleroderma Status: Chronic (97) Sclerosis of the skin Status: Chronic - Assessment and Plan (Free Text) Plan: Dialysis as scheduled Ultrafiltrate on the lower side Renal consult called Work-up for palpitations Follow-up with the cardiology Renal diet eliquis added tsh added willobtian recrod from dr. lorenzo office antivert aspirin chewable compazine isordil lopressor neurontin norvasc [pepcid percocet phoslo plavix renvela synthroid tylenol xalatan opht moderate complexity of care plan discussed with patient
[2018-07-15] MEDS: Levothyroxine 25 MCG TAB PO SCH (05:48)
[2018-07-15 08:19] VITALS: O2SAT 98
[2018-07-15] MEDS: Latanoprost 2.5 ml Opht Soln OU SCH (09:59)
--- NOTE | 2018-07-15 12:05 | CP.PCM.PN ---
Subjective - Date & Time of Evaluation Date of Evaluation: 07/15/18 Time of Evaluation: 12:02 - Subjective Subjective: s/p dialysis 07/13- UF 3000ml s/p AFib with RVR now with HR- 70s feels better no more CPs no other new complaint on TTS dialysis schedule Objective - Vital Signs/Intake and Output Vital Signs (last 24 hours): Temp Pulse Resp BP Pulse Ox 97.4 F L 73 20 124/76 98 07/15/18 08:18 07/15/18 08:18 07/15/18 08:18 07/15/18 09:54 07/15/18 08:18 - Medications Medications: Current Medications Acetaminophen (Tylenol 325mg Tab) 325 mg PO Q8 PRN PRN Reason: Pain, moderate (4-7) Amlodipine Besylate (Norvasc) 5 mg PO DAILY [facility] [place] Last Admin: 07/15/18 09:53 Dose: 5 mg Aspirin (Aspirin Chewable) 81 mg PO DAILY [facility] Last Admin: 07/15/18 09:53 Dose: 81 mg Calcium Acetate (Phoslo) 1,334 mg PO TIDCC [facility] [place] Last Admin: 07/15/18 08:37 Dose: 1,334 mg Clopidogrel Bisulfate (Plavix) 75 mg PO DAILY [facility] Last Admin: 07/15/18 09:53 Dose: 75 mg Famotidine (Pepcid) 20 mg PO DAILY [facility] [place] Last Admin: 07/15/18 09:53 Dose: 20 mg Gabapentin (Neurontin) 300 mg PO DAILY [facility] [place] Last Admin: 07/15/18 09:54 Dose: Not Given Isosorbide Dinitrate (Isordil) 20 mg PO DAILY [facility] Last Admin: 07/15/18 09:55 Dose: 20 mg Latanoprost (Xalatan Opht) 0.05 ml OU DAILY [facility] Last Admin: 07/15/18 09:59 Dose: 0.05 ml Levothyroxine Sodium (Synthroid) 25 mcg PO DAILY@0630 [facility] Last Admin: 07/15/18 05:48 Dose: 25 mcg Meclizine HCl (Antivert) 25 mg PO DAILY [facility] [place] Last Admin: 07/15/18 09:53 Dose: 25 mg Metoprolol Tartrate (Lopressor) 25 mg PO BID [facility] Last Admin: 07/15/18 09:54 Dose: 25 mg Oxycodone/Acetaminophen (Percocet 5/325 Mg Tab) 2 tab PO Q6H PRN PRN Reason: Pain, severe (8-10) Stop: 07/16/18 18:09 Last Admin: 07/15/18 05:48 Dose: 2 tab Prochlorperazine (Compazine) 10 mg PO BID [facility] [place] Last Admin: 07/15/18 09:55 Dose: 10 mg Sevelamer Carbonate (Renvela) 2,400 mg PO TIDCC [facility] [place] Last Admin: 07/15/18 08:37 Dose: 2,400 mg - Labs Labs: 07/13/18 10:15 07/13/18 10:15 PT 12.2 SECONDS (9.7-12.2) 07/13/18 10:15 INR 1.1 07/13/18 10:15 APTT 29.0 SECONDS (21-34) 07/13/18 10:15 - Constitutional Appears: No Acute Distress, Chronically Ill - Head Exam Head Exam: ATRAUMATIC, NORMAL INSPECTION - Eye Exam Eye Exam: EOMI, Normal appearance - Neck Exam Neck Exam: Normal Inspection. absent: Tenderness - Respiratory Exam Respiratory Exam: Clear to Ausculation Bilateral, NORMAL BREATHING PATTERN - Cardiovascular Exam Cardiovascular Exam: REGULAR RHYTHM, +S1 - GI/Abdominal Exam GI & Abdominal Exam: Soft. absent: Tenderness - Extremities Exam Extremities Exam: Joint Swelling, Tenderness - Neurological Exam Neurological Exam: Awake, CN II-XII Intact Assessment and Plan (1) ESRD (end stage renal disease) on dialysis Status: Acute (2) Palpitations Status: Acute (3) Atrial fibrillation with RVR Status: Acute - Assessment and Plan (Free Text) Plan: likely for discharge today dialysis can be done as outpatient in AM same meds
[2018-07-15 16:32] VITALS: RESP 18; TEMP 98
[2018-07-15 16:41] VITALS: BP 103/60; PULSE 65
--- NOTE | 2018-07-15 17:02 | CP.PCM.PN ---
Subjective - Date & Time of Evaluation Date of Evaluation: 07/15/18 Time of Evaluation: 12:00 - Subjective Subjective: Pt alert and oriented x3 with no complaints of chest pain or shortness of breath. Objective - Vital Signs/Intake and Output Vital Signs (last 24 hours): Temp Pulse Resp BP Pulse Ox 98.0 F 65 18 103/60 98 07/15/18 15:00 07/15/18 16:40 07/15/18 15:00 07/15/18 16:40 07/15/18 15:00 - Labs Labs: 07/13/18 10:15 07/13/18 10:15 PT 12.2 SECONDS (9.7-12.2) 07/13/18 10:15 INR 1.1 07/13/18 10:15 APTT 29.0 SECONDS (21-34) 07/13/18 10:15 Assessment and Plan - Assessment and Plan (Free Text) Assessment: 68-year-old female with a history of multiple Afib and a multiple medical problems came to the emergency room after patient found to have chest pain and sudden palpitations at the dialysis. Pt seen and examined. VSS. Pt alert and oriented x3, acute symptoms subsided and has verbalized he had no complaints at this time. Activity as tolerated advised. Pt was instructed to continue all home medications. Discharge discussed with patients and Dr. Carina Newell.
--- NOTE | 2018-07-15 17:24 | IP.NPCORE ---
Heart Failure Core Measure - Heart Failure Ejection Fraction: 40 % or Greater (EF 57%) Left Ventricular Function to be assessed after discharge: No ZAID Inhibitor Prescribed: No Contraindication/Reason for not providing: pt has renal disease Beta-Isra Prescribed: Metoprolol Succinate Angiotensin II Receptor Isra Prescribed: No Contraindication/Reason for not providing: pt has renal disease AnticoagulationTherapy for Atrial Fibrillation/Atrialflutter: No Contraindication/Reason for not providing: pt EF >40% Aldosterone Antagonist Prescribed: No Contraindication/Reason for not providing: pt has renal disease Hydralazine Nitrate Prescribed: No Contraindication/Reason for not providing: pt >40% Implantable Cardioverter Defibrillator Therapy: Yes Cardiac Resynchronization Therapy Prescribed: No Contraindication/Reason for not providing: not indicated - Follow up Will be discharged to: Home Follow Up Date (must be within 7 days from discharge): 07/22/18 Follow Up Time: 10:00
--- NOTE | 2018-07-16 13:05 | CARD ---
APPROVED REPORT Date of service: 07/13/2018 EKG Measurement Heart [id number] <Conclusion> Atrial fibrillation with slightly rapid ventricular response Right bundle branch block T wave abnormality, consider inferior ischemia Abnormal ECG
== END 2018-07-15 16:48 | disposition home or self-care (01) ==
LOC: C.ER 09:41 → C.9E 11:41 → C.5S 12:30
PROVIDERS: ADMIT Internal Medicine Nephrology; ATTEND Internal Medicine Nephrology
DX: I48.0 Paroxysmal atrial fibrillation (principal); I13.2 Hypertensive heart and chronic kidney disease with heart failure and with stage 5 chronic kidney disease, or end stage renal disease; I25.10 Atherosclerotic heart disease of native coronary artery without angina pectoris; I27.20 Pulmonary hypertension, unspecified; I50.9 Heart failure, unspecified; J45.901 Unspecified asthma with (acute) exacerbation; K59.00 Constipation, unspecified; M34.9 Systemic sclerosis, unspecified; N18.6 End stage renal disease; R04.0 Epistaxis; T86.12 Kidney transplant failure; Z95.0 Presence of cardiac pacemaker
CPT/HCPCS: 36415; 71045; 80053; 83880; 84484; 85025; 85610; 85730; 99285; G0257; G0378

== ENCOUNTER 2018-08-01 17:47 | Inpatient (IN) | payer MEDICARE, OTHER ==
[2018-08-01 17:47] VITALS: PULSE 146; BMI 22.3
[2018-08-01 18:31] LABS: BASO % 1.4 % (0.0-2.0); EOS % 1.6 % (0.0-4.0); HEMOGLOBIN 11.1 g/dL (11.0-16.0); LYMPH # 0.7 K/uL (1.0-4.3); LYMPH % 21.7 % (20.0-40.0); MEAN CELL VOLUME 101.1 fL (81.0-99.0); MEAN CORPUSCULAR HEMOGLOBIN 33.5 pg (27.0-31.0); MEAN CORPUSCULAR HGB CONC 33.1 g/dL (33.0-37.0); MEAN PLATELET VOLUME 7.9 fL (7.2-11.7); MONO # 0.3 K/uL (0.0-0.8); MONO % 10.3 % (0.0-10.0); NRBC % 0.1 % (0.0-2.0); RBC 3.33 Mil/uL (3.80-5.20); RED CELL DISTRIBUTION WIDTH 15.5 % (11.5-14.5); WHITE BLOOD COUNT 3.1 K/uL (4.8-10.8)
[2018-08-01 18:52] LABS: ALB/GLOB RATIO 0.9 (1.0-2.1); ALBUMIN 4.2 g/dL (3.5-5.0); ALT/SGPT 41 U/L (9-52); AST/SGOT 54 U/L (14-36); BLOOD UREA NITROGEN 31 mg/dL (7-17); CALCIUM 7.9 mg/dl (8.6-10.4); GFR NON-AFRICAN AMERICAN 13
[2018-08-01 18:54] LABS: INR 1.2; PARTIAL THROMBOPLASTIN TIME 37.7 SECONDS (21-34); PROTHROMBIN TIME 12.7 SECONDS (9.7-12.2)
--- NOTE | 2018-08-01 18:56 | C.PDOC ---
History Of Present Illness 68 year old female presents to ED with complaint of palpitations and digitally reproducible pain to the upper chest area that began today. Patient has dialysis on every Sunday, , and Sunday and reports going today. She had a negative stress test on February 2018 and normal cardiac catherization on January 2016. She denies fall, injury, SOB, or lightheadedness. Time Seen by Provider: 08/01/18 18:00 Chief Complaint (Nursing): Chest Pain History Per: Patient History/Exam Limitations: no limitations Onset/Duration Of Symptoms: Hrs Current Symptoms Are (Timing): Still Present Quality: "Pain" Associated Symptoms: denies: Nausea, Dyspnea Past Medical History Reviewed: Historical Data, Nursing Documentation, Vital Signs Vital Signs: Last Vital Signs Temp 97.5 F L 08/01/18 17:50 Pulse 93 H 08/01/18 18:35 Resp 20 08/01/18 18:35 BP 110/63 08/01/18 18:35 Pulse Ox 100 08/01/18 18:35 Primary Care Provider: Porsha Newell S - Medical History PMH: Anemia, Arthritis, Asthma, Atrial Fibrillation, CAD, Cardia Arrhythmia, CHF (A-fib, CAD), COPD, Depression, HTN, Hyperlipidemia, Kidney Stones, Migraine, Osteoporosis, Pancreatitis, Peripheral Edema, End Stage Renal Disease, Chronic Kidney Disease Denies: Hypercholesterolemia, Sexually Transmitted Disease Surgical History: Cholecystectomy, Endoscopy, Pacemaker - [facility] Procedures (03/03/18) ANGIOPLASTY OF OTHER NON-CORONARY VESSEL(S) (12/04/13) DIALYSIS ARTERIOVENOSTOM (12/04/13) DRAINAGE OF LEFT PLEURAL CAVITY, PERCUTANEOUS APPROACH (09/01/16) FLEXIBLE SIGMOIDOSCOPY (07/30/14) FLUOROSCOPY OF LEFT HEART USING LOW OSMOLAR CONTRAST (02/01/16) FLUOROSCOPY OF MULT COR ART USING L OSM CONTRAST (02/01/16) HEMODIALYSIS (09/30/14) INSEJ [id number] PERIPHERAL NON-CORONARY VES STENT(S) (12/04/13) INSERTION OF ONE VASCULAR STENT (12/04/13) MEASURE OF CARDIAC SAMPL & PRESSURE, L HEART, PERC APPROACH (02/01/16) OTHER ENDOSCOPY OF SM INTEST (07/30/14) PACKED CELL TRANSFUSION (09/30/14) PERFORMANCE OF URINARY FILTRATION, MULTIPLE (10/16/16) PERFORMANCE OF URINARY FILTRATION, SINGLE (09/28/16) PROCEDURE ON SINGLE VESSEL (12/04/13) RESPIRATORY VENTILATION, GREATER THAN 96 CONSECUTIVE HOURS (09/01/16) TRANSFUSE NONAUT PLATELETS IN PERIPH VEIN, PERC (09/01/16) VASC PROC REVISION NEC (12/04/13) VENOUS CATHETERIZATION FOR RENAL DIALYSIS (12/04/13) Family History: States: Unknown Family Hx - Social History Hx Tobacco Use: No Hx Alcohol Use: No Hx Substance Use: No - Immunization History Hx Tetanus Toxoid Vaccination: Yes Hx Influenza Vaccination: Yes Hx Pneumococcal Vaccination: Yes Review Of Systems Constitutional: Negative for: Fever, Chills, Weakness Cardiovascular: Positive for: Chest Pain, Palpitations. Negative for: Light Headedness Respiratory: Negative for: Cough, Shortness of Breath Gastrointestinal: Negative for: Nausea, Vomiting Neurological: Negative for: Weakness, Numbness, Dizziness Physical Exam - Physical Exam Appears: Chronically Ill, Other (elderly, female) Skin: No Rash, Other (discoloration to the upper sternal skin) Head: Atraumatic, Normacephalic Neck: Normal ROM, Supple Chest: Symmetrical, No Deformity, Tenderness (upper parasternal area) Cardiovascular: Rhythm Regular, No Murmur Respiratory: No Accessory Muscle Use, No Rales, No Rhonchi, No Wheezing Gastrointestinal/Abdominal: Soft, No Tenderness Neurological/Psych: Oriented x3, Normal Speech, Normal Cognition ED Course And Treatment - Laboratory Results Result Diagrams: 08/01/18 18:24 08/01/18 18:24 Lab Results: Total Bilirubin 0.6 mg/dL (0.2-1.3) 08/01/18 18:24 AST 54 U/L (14-36) H D 08/01/18 18:24 ALT 41 U/L (9-52) 08/01/18 18:24 Alkaline Phosphatase 353 U/L (38-126) H D 08/01/18 18:24 Total Protein 9.0 g/dL (6.3-8.3) H 08/01/18 18:24 Albumin 4.2 g/dL (3.5-5.0) 08/01/18 18:24 Globulin 4.7 gm/dL (2.2-3.9) H 08/01/18 18:24 Albumin/Globulin Ratio 0.9 (1.0-2.1) L 08/01/18 18:24 Lab Interpretation: Normal (HBG IMPROVED from prior 9.7, normocytic with widened RDW) Urine POC: Negative O2 Sat by Pulse Oximetry: 100 (in RA) Pulse Ox Interpretation: Normal Progress Note: EKG and CXR ordered for patient. Labs ordered with CMP, CBC, and PTT. Patient given Motrin PO. Reevaluation Time: 19:03 Reassessment Condition: Unchanged Medical Decision Making Medical Decision Making: digitally reproducable CP anterior upper CP c/w costochondritis no rash to suspect HZV refused NSAIDS in ED Chronic pain issues on Percocet QID for ? baseline AF/NSR not an anti-coagulation candidate per Dr. Madrigal's most recent Cardio Consult note trop neg. Disposition Doctor Will See Patient In The: Hospital Counseled Patient/Family Regarding: Studies Performed, Diagnosis - Disposition Disposition: HOSPITALIZED Disposition Time: 19:04 Condition: GOOD - Clinical Impression Clinical Impression: Chest wall discomfort, Palpitations - Scribe Statement The provider has reviewed the documentation as recorded by the Scribe (Janna Salcedo) All medical record entries made by the Scribe were at my direction and personally dictated by me. I have reviewed the chart and agree that the record accurately reflects my personal performance of the history, physical exam, medical decision making, and the department course for this patient. I have also personally directed, reviewed, and agree with the discharge instructions and disposition.
[2018-08-01 19:21] LABS: B-TYPE NATRIURETIC PEPTIDE 43100 pg/mL (0-900)
[2018-08-01] MEDS ORDERED: Oxycodone/Acetaminophen 5/325 mg Tab PO STA (19:22)
[2018-08-01] MEDS ORDERED: Oxycodone/Acetaminophen 5/325 mg Tab ONE (19:28)
--- NOTE | 2018-08-01 23:29 | CP.PCM.HP ---
Past Patient History - Infectious Disease Hx of Infectious Diseases: None - Tetanus Immunizations Tetanus Immunization: Unknown - Past Medical History & Family History Past Medical History?: Yes - Past Social History Smoking Status: Never Smoked - CARDIAC Hx Atrial Fibrillation: Yes Hx Cardia Arrhythmia: Yes Hx Congestive Heart Failure: Yes (A-fib, CAD) Hx Hypercholesterolemia: No Hx Hypertension: Yes Hx Pacemaker: Yes Hx Peripheral Edema: Yes - PULMONARY Hx Asthma: Yes Hx Chronic Obstructive Pulmonary Disease (COPD): Yes - NEUROLOGICAL Hx Migraine: Yes - HEENT Hx HEENT Problems: Yes - RENAL Hx Chronic Kidney Disease: Yes Hx Kidney Stones: Yes - ENDOCRINE/METABOLIC Hx Endocrine Disorders: No - HEMATOLOGICAL/ONCOLOGICAL Hx Anemia: Yes - INTEGUMENTARY Hx Dermatological Problems: Yes Other/Comment: Scleroderma of both arms/both legs - MUSCULOSKELETAL/RHEUMATOLOGICAL Hx Arthritis: Yes Hx Osteoporosis: Yes - GASTROINTESTINAL Hx Pancreatitis: Yes - GENITOURINARY/GYNECOLOGICAL Hx Sexually Transmitted Disorders: No - PSYCHIATRIC Hx Depression: Yes Hx Substance Use: No - SURGICAL HISTORY Hx Cholecystectomy: Yes - ANESTHESIA Hx Anesthesia: Yes Hx Anesthesia Reactions: No Hx Malignant Hyperthermia: No Meds Allergies/Adverse Reactions: Allergies Allergy/AdvReac Type Severity Reaction Status Date / Time vancomycin Allergy Severe ITCHING Verified 08/01/18 18:03 azithromycin Allergy ITCHING Verified 08/01/18 18:03 budesonide [From Symbicort] Allergy ITCHING Verified 08/01/18 18:03 formoterol [From Symbicort] Allergy ITCHING Verified 08/01/18 18:03 gabapentin Allergy Verified 08/01/18 18:03 Results - Vital Signs Recent Vital Signs: Last Vital Signs Temp 97.8 F 08/01/18 20:43 Pulse 74 08/01/18 20:43 Resp 20 08/01/18 20:43 BP 111/74 08/01/18 20:43 Pulse Ox 100 08/01/18 20:43 - Labs Result Diagrams: 08/01/18 18:24 08/01/18 18:24 Labs: Laboratory Results - last 24 hr 08/01/18 08/01/18 08/01/18 18:24 18:24 18:24 WBC 3.1 L RBC 3.33 L Hgb 11.1 Hct 33.6 L MCV 101.1 H MCH 33.5 H MCHC 33.1 RDW 15.5 H Plt Count 84 L MPV 7.9 Neut % (Auto) 65.0 Lymph % (Auto) 21.7 [place] % (Auto) 10.3 H Eos % (Auto) 1.6 Baso % (Auto) 1.4 Neut # (Auto) 2.0 Lymph # (Auto) 0.7 L [place] # (Auto) 0.3 Eos # (Auto) 0.0 Baso # (Auto) 0.0 PT 12.7 H INR 1.2 APTT 37.7 H Sodium 137 Potassium 4.1 Chloride 93 L Carbon Dioxide 33 H Anion Gap 16 BUN 31 H Creatinine 3.5 H Est GFR ( Amer) 16 Est GFR (Non-Af Amer) 13 Random Glucose 100 Calcium 7.9 L Total Bilirubin 0.6 AST 54 H D ALT 41 Alkaline Phosphatase 353 H D Troponin I < 0.0120 NT-Pro-B Natriuret Pep 33857 H Total Protein 9.0 H Albumin 4.2 Globulin 4.7 H Albumin/Globulin Ratio 0.9 L
[2018-08-02] MEDS: Oxycodone/Acetaminophen 5/325 mg Tab PO PRN ×3 (02:06→21:56)
[2018-08-02 03:05] LABS: CK-MB 0.82 ng/mL (0.0-3.38)
[2018-08-02] MEDS: Levothyroxine 25 MCG TAB PO SCH (05:52)
--- NOTE | 2018-08-02 10:15 | RAD ---
Date of service: 08/01/2018 PROCEDURE: CHEST RADIOGRAPH, 1 VIEW HISTORY: SOB COMPARISON: 07/13/2018 FINDINGS: LUNGS: There is interval improved aeration in the lungs with residual moderate pulmonary venous congestion and mild interstitial pulmonary edema PLEURA: Persistent moderate pleural effusions larger on the right. No pneumothorax CARDIOVASCULAR: Mild cardiomegaly. There is stable position of left-sided dual lead permanent pacing device. There are mild aortic atherosclerotic calcifications present. OSSEOUS STRUCTURES: Within normal limits for the patient's age. VISUALIZED UPPER ABDOMEN: Normal. OTHER FINDINGS: None. IMPRESSION: Improving pulmonary venous congestion with persistent moderate pleural effusions. Findings most compatible with improving congestive heart failure.
--- NOTE | 2018-08-02 11:33 | CP.PCM.CON ---
History of Present Illness - History of Present Illness History of Present Illness: 68 year old female presents to ED with complaint of palpitations and digitally reproducible pain to the upper chest area that began today. Patient has dialysis on every Sunday, , and Sunday and reports going today. She had a negative stress test on February 2018 and normal cardiac catherization on January 2016. She denies fall, injury, SOB, or lightheadedness. Seen at dialysis 08/01- advised to go to ED due to SVT. Refused at that time, but pesents to ED with CPs Now HR-80s, no more CPs Past Medical History Reviewed: Historical Data, Nursing Documentation, Vital Signs Vital Signs: Last Vital Signs Temp 97.5 F L 08/01/18 17:50 Pulse 93 H 08/01/18 18:35 Resp 20 08/01/18 18:35 BP 110/63 08/01/18 18:35 Pulse Ox 100 08/01/18 18:35 Primary Care Provider: Porsha Newell - Medical History PMH: Anemia, Arthritis, Asthma, Atrial Fibrillation, CAD, Cardia Arrhythmia, CHF (A-fib, CAD), COPD, Depression, HTN, Hyperlipidemia, Kidney Stones, Migraine, Osteoporosis, Pancreatitis, Peripheral Edema, End Stage Renal Disease, Chronic Kidney Disease, 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 Denies: Hypercholesterolemia, Sexually Transmitted Disease Surgical History: Cholecystectomy, Endoscopy, Pacemaker, renal transplant x 2, AV grafts - [facility] Procedures (03/03/18) ANGIOPLASTY OF OTHER NON-CORONARY VESSEL(S) (12/04/13) DIALYSIS ARTERIOVENOSTOM (12/04/13) DRAINAGE OF LEFT PLEURAL CAVITY, PERCUTANEOUS APPROACH (09/01/16) FLEXIBLE SIGMOIDOSCOPY (07/30/14) FLUOROSCOPY OF LEFT HEART USING LOW OSMOLAR CONTRAST (02/01/16) FLUOROSCOPY OF MULT COR ART USING L OSM CONTRAST (02/01/16) HEMODIALYSIS (09/30/14) INSEJ [id number] PERIPHERAL NON-CORONARY VES STENT(S) (12/04/13) INSERTION OF ONE VASCULAR STENT (12/04/13) MEASURE OF CARDIAC SAMPL & PRESSURE, L HEART, PERC APPROACH (02/01/16) OTHER ENDOSCOPY OF SM INTEST (07/30/14) PACKED CELL TRANSFUSION (09/30/14) PERFORMANCE OF URINARY FILTRATION, MULTIPLE (10/16/16) PERFORMANCE OF URINARY FILTRATION, SINGLE (09/28/16) PROCEDURE ON SINGLE VESSEL (12/04/13) RESPIRATORY VENTILATION, GREATER THAN 96 CONSECUTIVE HOURS (09/01/16) TRANSFUSE NONAUT PLATELETS IN PERIPH VEIN, PERC (09/01/16) VASC PROC REVISION NEC (12/04/13) VENOUS CATHETERIZATION FOR RENAL DIALYSIS (12/04/13) Family History: States: Unknown Family Hx, no CKD - Social History Hx Tobacco Use: No Hx Alcohol Use: No Hx Substance Use: No - Immunization History Hx Tetanus Toxoid Vaccination: Yes Hx Influenza Vaccination: Yes Hx Pneumococcal Vaccination: Yes Review Of Systems Constitutional: Negative for: Fever, Chills, Weakness Cardiovascular: Positive for: Chest Pain, Palpitations. Negative for: Light Headedness Respiratory: Negative for: Cough, Shortness of Breath Gastrointestinal: Negative for: Nausea, Vomiting Neurological: Negative for: Weakness, Numbness, Dizziness Review of Systems - Review of Systems All systems: reviewed and no additional remarkable complaints except - Constitutional Constitutional: Fatigue, Weakness - EENT Eyes: absent: As Per HPI, Blind Spots, Blurred Vision, Change in Vision, Decreased Night Vision, Diplopia, Discharge, Dry Eye, Exophthalmos, Floaters, Irritation, Itchy Eyes, Loss of Peripheral Vision, Pain, Photophobia, Requires Corrective Lenses, Sees Flashes, Spots in Vision, Tunnel Vision, Other Visual Disturbances, Loss of Vision, Other Ears: absent: As Per HPI, Decreased Hearing, Ear Discharge, Ear Pain, Tinnitus, Abnormal Hearing, Disequilibrium, Dizziness, Other Nose/Mouth/Throat: absent: As Per HPI, Epistaxis, Nasal Congestion, Nasal Discharge, Nasal Obstruction, Nasal Trauma, Nose Pain, Post Nasal Drip, Sinus Pain, Sinus Pressure, Bleeding Gums, Change in Voice, Dental Pain, Dry Mouth, Dysphagia, Halitosis, Hoarsness, Lip Swelling, Mouth Lesions, Mouth Pain, Odynophagia, Sore Throat, Throat Swelling, Tongue Swelling, Facial Pain, Neck Pain, Neck Mass, Other - Cardiovascular Cardiovascular: Chest Pain, Dyspnea, Dyspnea on Exertion, Palpitations - Respiratory Respiratory: Dyspnea on Exertion - Gastrointestinal Gastrointestinal: Constipation - Genitourinary Genitourinary: As Per HPI - Musculoskeletal Musculoskeletal: Muscle Weakness, Myalgias Past Patient History - Infectious Disease Hx of Infectious Diseases: None - Tetanus Immunizations Tetanus Immunization: Unknown - Past Medical History & Family History Past Medical History?: Yes Past Family History: Reviewed and not pertinent - Past Social History Smoking Status: Never Smoked Chewing Tobacco Use: No Cigar Use: No Alcohol: None Drugs: Denies Home Situation {Lives}: With Family - CARDIAC Hx Atrial Fibrillation: Yes Hx Cardia Arrhythmia: Yes Hx Congestive Heart Failure: Yes (A-fib, CAD) Hx Hypercholesterolemia: No Hx Hypertension: Yes Hx Pacemaker: Yes Hx Peripheral Edema: Yes - PULMONARY Hx Asthma: Yes Hx Chronic Obstructive Pulmonary Disease (COPD): Yes - NEUROLOGICAL Hx Migraine: Yes - HEENT Hx HEENT Problems: Yes - RENAL Hx Chronic Kidney Disease: Yes Hx Kidney Stones: Yes - ENDOCRINE/METABOLIC Hx Endocrine Disorders: No - HEMATOLOGICAL/ONCOLOGICAL Hx Anemia: Yes - INTEGUMENTARY Hx Dermatological Problems: Yes Other/Comment: Scleroderma of both arms/both legs - MUSCULOSKELETAL/RHEUMATOLOGICAL Hx Arthritis: Yes Hx Osteoporosis: Yes - GASTROINTESTINAL Hx Pancreatitis: Yes - GENITOURINARY/GYNECOLOGICAL Hx Sexually Transmitted Disorders: No - PSYCHIATRIC Hx Depression: Yes Hx Substance Use: No - SURGICAL HISTORY Hx Cholecystectomy: Yes - ANESTHESIA Hx Anesthesia: Yes Hx Anesthesia Reactions: No Hx Malignant Hyperthermia: No Meds Allergies/Adverse Reactions: Allergies Allergy/AdvReac Type Severity Reaction Status Date / Time vancomycin Allergy Severe ITCHING Verified 08/01/18 18:03 azithromycin Allergy ITCHING Verified 08/01/18 18:03 budesonide [From Symbicort] Allergy ITCHING Verified 08/01/18 18:03 formoterol [From Symbicort] Allergy ITCHING Verified 08/01/18 18:03 gabapentin Allergy Verified 08/01/18 18:03 - Medications Medications: Current Medications Amlodipine Besylate (Norvasc) 5 mg PO DAILY [facility] Last Admin: 08/02/18 10:58 Dose: Not Given Aspirin (Aspirin) 325 mg PO DAILY [facility] Last Admin: 08/02/18 10:27 Dose: 325 mg Calcium Acetate (Phoslo) 1,334 mg PO TID [facility] Last Admin: 08/02/18 10:52 Dose: 1,334 mg Famotidine (Pepcid) 20 mg PO DAILY [facility] Last Admin: 08/02/18 10:28 Dose: 20 mg Heparin Sodium (Porcine) (Heparin) 5,000 units SC BID [facility] Last Admin: 08/02/18 10:58 Dose: Not Given Isosorbide Dinitrate (Isordil) 20 mg PO DAILY [facility] Last Admin: 08/02/18 10:52 Dose: 20 mg Latanoprost (Xalatan Opht) 0 ml OU HS [facility] Levothyroxine Sodium (Synthroid) 25 mcg PO DAILY@0630 [facility] Last Admin: 08/02/18 05:52 Dose: 25 mcg Metoprolol Tartrate (Lopressor) 25 mg PO BID [facility] Last Admin: 08/02/18 10:27 Dose: 25 mg Oxycodone/Acetaminophen (Percocet 5/325 Mg Tab) 2 tab PO Q6H PRN PRN Reason: Pain, Mild (1-3) Stop: 08/04/18 22:02 Last Admin: 08/02/18 10:26 Dose: 2 tab Prochlorperazine (Compazine) 10 mg PO BID PRN PRN Reason: Nausea/Vomiting Sevelamer Carbonate (Renvela) 1,600 mg PO TID [facility] Last Admin: 08/02/18 10:52 Dose: 1,600 mg Physical Exam - Constitutional Appears: No Acute Distress, Chronically Ill - Head Exam Head Exam: ATRAUMATIC, NORMAL INSPECTION - Eye Exam Eye Exam: EOMI, Normal appearance - Neck Exam Neck exam: Positive for: Normal Inspection. Negative for: Tenderness - Respiratory Exam Respiratory Exam: Clear to Auscultation Bilateral, NORMAL BREATHING PATTERN - Cardiovascular Exam Cardiovascular Exam: Irregular Rhythm - GI/Abdominal Exam GI & Abdominal Exam: Soft. absent: Tenderness - Extremities Exam Extremities exam: Positive for: normal inspection, tenderness - Neurological Exam Neurological exam: Alert, CN II-XII Intact - Skin Skin Exam: Dry, Warm Results - Vital Signs Recent Vital Signs: Last Vital Signs Temp 97.8 F 08/02/18 07:00 Pulse 65 08/02/18 07:00 Resp 20 08/02/18 07:00 BP 103/65 08/02/18 07:00 Pulse Ox 100 08/02/18 07:00 - Labs Result Diagrams: 08/01/18 18:24 08/01/18 18:24 Labs: Laboratory Results - last 24 hr 08/01/18 08/01/18 08/01/18 18:24 18:24 18:24 WBC 3.1 L RBC 3.33 L Hgb 11.1 Hct 33.6 L MCV 101.1 H MCH 33.5 H MCHC 33.1 RDW 15.5 H Plt Count 84 L MPV 7.9 Neut % (Auto) 65.0 Lymph % (Auto) 21.7 [place] % (Auto) 10.3 H Eos % (Auto) 1.6 Baso % (Auto) 1.4 Neut # (Auto) 2.0 Lymph # (Auto) 0.7 L [place] # (Auto) 0.3 Eos # (Auto) 0.0 Baso # (Auto) 0.0 PT 12.7 H INR 1.2 APTT 37.7 H Sodium 137 Potassium 4.1 Chloride 93 L Carbon Dioxide 33 H Anion Gap 16 BUN 31 H Creatinine 3.5 H Est GFR ( Amer) 16 Est GFR (Non-Af Amer) 13 Random Glucose 100 Calcium 7.9 L Total Bilirubin 0.6 AST 54 H D ALT 41 Alkaline Phosphatase 353 H D Total Creatine Kinase CK-MB (Mass) Troponin I < 0.0120 NT-Pro-B Natriuret Pep 56886 H Total Protein 9.0 H Albumin 4.2 Globulin 4.7 H Albumin/Globulin Ratio 0.9 L 08/02/18 02:16 WBC RBC Hgb Hct MCV MCH MCHC RDW Plt Count MPV Neut % (Auto) Lymph % (Auto) [place] % (Auto) Eos % (Auto) Baso % (Auto) Neut # (Auto) Lymph # (Auto) [place] # (Auto) Eos # (Auto) Baso # (Auto) PT INR APTT Sodium Potassium Chloride Carbon Dioxide Anion Gap BUN Creatinine Est GFR ( Amer) Est GFR (Non-Af Amer) Random Glucose Calcium Total Bilirubin AST ALT Alkaline Phosphatase Total Creatine Kinase 29 L CK-MB (Mass) 0.82 Troponin I < 0.0120 NT-Pro-B Natriuret Pep Total Protein Albumin Globulin Albumin/Globulin Ratio Assessment & Plan (1) Atypical chest pain Status: Acute (2) Atrial fibrillation Status: Acute (3) COPD (chronic obstructive pulmonary disease) Status: Acute (4) 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
--- NOTE | 2018-08-02 17:59 | CP.PCM.CON ---
History of Present Illness - History of Present Illness History of Present Illness: I was asked to see patient by Dr Moody Newell. Patient seen 08/02/18 [id number] Patient is a 68 year old female with ESRD on HD, HTN, multiple admissions for chest pain who presents with palpitiatons. The patient had a normal stress test in February, but has had intermittent admissions for chest pain. She was in SVT in dialysis according to records, but no strip is available. EKG in ER reveals afib with controlled ventricular response. The patient is comfortable. Review of Systems - Constitutional Constitutional: absent: As Per HPI, Anorexia, Chills, Daytime Sleepiness, Excessive Sweating, Fatigue, Fever, Frequent Falls, Headache, Increased Appetite, Lethargy, Malaise, Night Sweats, Snoring, Sleep Apnea, Weight Gain, Weight Loss, Weakness, Other - EENT Eyes: absent: As Per HPI, Blind Spots, Blurred Vision, Change in Vision, Decreased Night Vision, Diplopia, Discharge, Dry Eye, Exophthalmos, Floaters, Irritation, Itchy Eyes, Loss of Peripheral Vision, Pain, Photophobia, Requires Corrective Lenses, Sees Flashes, Spots in Vision, Tunnel Vision, Other Visual Disturbances, Loss of Vision, Other Ears: absent: As Per HPI, Decreased Hearing, Ear Discharge, Ear Pain, Tinnitus, Abnormal Hearing, Disequilibrium, Dizziness, Other Nose/Mouth/Throat: absent: As Per HPI, Epistaxis, Nasal Congestion, Nasal Discharge, Nasal Obstruction, Nasal Trauma, Nose Pain, Post Nasal Drip, Sinus Pain, Sinus Pressure, Bleeding Gums, Change in Voice, Dental Pain, Dry Mouth, Dysphagia, Halitosis, Hoarsness, Lip Swelling, Mouth Lesions, Mouth Pain, Odynophagia, Sore Throat, Throat Swelling, Tongue Swelling, Facial Pain, Neck Pain, Neck Mass, Other - Breasts Breasts: absent: As Per HPI, Change in Shape, Mass, Pain, Nipple Discharge, Nipple Inversion, Skin Changes, Swelling, Other - Cardiovascular Cardiovascular: absent: As Per HPI, Acrocyanosis, Chest Pain, Chest Pain at Rest, Chest Pain with Activity, Claudication, Diaphoresis, Dyspnea, Dyspnea on Exertion, Edema, Irregular Heart Rhythm, Pain Radiating to Arm/Neck/Jaw, Leg Edema, Leg Ulcers, Lightheadedness, Orthopnea, Palpitations, Paroxysmal Nocturna l Dyspnea, Pedal Edema, Radiating Pain, Rapid Heart Rate, Slow Heart Rate, Syncope, Other - Respiratory Respiratory: absent: As Per HPI, Cough, Dyspnea, Hemoptysis, Dyspnea on Exertion, Wheezing, Snoring, Stridor, Pain on Inspiration, Chest Congestion, Excessive Mucous Production, Change in Mucous Color, Pain with Coughing, Other - Gastrointestinal Gastrointestinal: absent: As Per HPI, Abdominal Pain, Belching, Bloating, Change in Bowel Habits, Change in Stool Character, Coffee Ground Emesis, Constipation, Cramping, Diarrhea, Dyspepsia, Dysphagia, Early Satiety, Excessive Flatus, Fecal Incontinence, Heartburn, Hematemesis, Hematochezia, Loose Stools, Melena, Nausea, Odynophagia, Temesmus, Vomiting, Other - Genitourinary Genitourinary: absent: As Per HPI, Change in Urinary Stream, Difficulty Urinating, Dysuria, Flank Pain, Hematuria, Pyuria, Nocturia, Urinary Incontinence, Urinary Frequency, Urinary Hesitance, Urinary Urgency, Voiding Freq/Small Amts, Freq UTI, Hx Renal/Bladder Calculi, Hx /Renal Surgery, Bladder Distension, Other - Musculoskeletal Musculoskeletal: absent: As Per HPI, Abnormal Gait, Arthralgias, Atrophy, Back Pain, Deformity, Joint Swelling, Limited Range of Motion, Loss of Height, Muscle Cramps, Muscle Weakness, Myalgias, Neck Pain, Numbness, Radiating Pain into Limb, Stiffness, Tingling, Other - Integumentary Integumentary: absent: As Per HPI, Acne, Alopecia, Bleeding Lesions, Change in Hair, Change in Nails, Change in Pigmentation, Changing Lesions, Dry Skin, Erythema, Furuncle, Hirsutism, Lesions, New Lesions, Non-Healing Lesions, Photosensitivity, Pruritus, Rash, Skin Pain, Skin Ulcer, Sores, Striae, Swelling, Unusual Bruising, Wounds, Jaundice, Other - Neurological Neurological: absent: As Per HPI, Abnormal Gait, Abnormal Hearing, Abnormal Movements, Abnormal Speech, Behavioral Changes, Burning Sensations, Confusion, Convulsions, Disequilibrium, Dizziness, Numbness, Focal Weakness, Frequent Falls, Headaches, Lack of Coordination, Loss of Vision, Memory Loss, Paresthesias, Radicular Pain, Restless Legs, Sensory Deficit, Syncope, Tingling, Tremor, Vertigo, Weakness, Other Visual Disturbances, Other - Psychiatric Psychiatric: absent: As Per HPI, Abnormal Sleep Pattern, Anhedonia, Anxiety, Auditory Hallucinations, Behavioral Changes, Change in Appetite, Change in Maritza victor manuel, Confusion, Depression, Difficulty Concentrating, Hallucinations, Homicidal Ideation, Hopelessness, Irritability, Memory Loss, Mood Swings, Panic Attacks, Paranoia, Suicidal Ideation, Visual Hallucinations, Tactile Hallucinations, Other - Endocrine Endocrine: absent: As Per HPI, Change in Body Appearance, Change in Libido, Cold Intolorance, Deepening of Voice, Excessive Sweating, Fatigue, Flushing, Heat Intolorance, Increase in Ring/Shoe/Hat Size, Palpitations, Polydipsia, Polyphagia, Polyuria, Other - Hematologic/Lymphatic Hematologic: absent: As Per HPI, Easy Bleeding, Easy Bruising, Lymphadenopathy, Other Past Patient History - Infectious Disease Hx of Infectious Diseases: None - Tetanus Immunizations Tetanus Immunization: Unknown - Past Medical History & Family History Past Medical History?: Yes Past Family History: Reviewed and not pertinent - Past Social History Smoking Status: Never Smoked Chewing Tobacco Use: No Cigar Use: No Alcohol: None Drugs: Denies Home Situation {Lives}: With Family - CARDIAC Hx Atrial Fibrillation: Yes Hx Cardia Arrhythmia: Yes Hx Congestive Heart Failure: Yes (A-fib, CAD) Hx Hypercholesterolemia: No Hx Hypertension: Yes Hx Pacemaker: Yes Hx Peripheral Edema: Yes - PULMONARY Hx Asthma: Yes Hx Chronic Obstructive Pulmonary Disease (COPD): Yes - NEUROLOGICAL Hx Migraine: Yes - HEENT Hx HEENT Problems: Yes - RENAL Hx Chronic Kidney Disease: Yes Hx Kidney Stones: Yes - ENDOCRINE/METABOLIC Hx Endocrine Disorders: No - HEMATOLOGICAL/ONCOLOGICAL Hx Anemia: Yes - INTEGUMENTARY Hx Dermatological Problems: Yes Other/Comment: Scleroderma of both arms/both legs - MUSCULOSKELETAL/RHEUMATOLOGICAL Hx Arthritis: Yes Hx Osteoporosis: Yes - GASTROINTESTINAL Hx Pancreatitis: Yes - GENITOURINARY/GYNECOLOGICAL Hx Sexually Transmitted Disorders: No - PSYCHIATRIC Hx Depression: Yes Hx Substance Use: No - SURGICAL HISTORY Hx Cholecystectomy: Yes - ANESTHESIA Hx Anesthesia: Yes Hx Anesthesia Reactions: No Hx Malignant Hyperthermia: No Meds Allergies/Adverse Reactions: Allergies Allergy/AdvReac Type Severity Reaction Status Date / Time vancomycin Allergy Severe ITCHING Verified 08/01/18 18:03 azithromycin Allergy ITCHING Verified 08/01/18 18:03 budesonide [From Symbicort] Allergy ITCHING Verified 08/01/18 18:03 formoterol [From Symbicort] Allergy ITCHING Verified 08/01/18 18:03 gabapentin Allergy Verified 08/01/18 18:03 - Medications Medications: Current Medications Amlodipine Besylate (Norvasc) 5 mg PO DAILY [facility] Last Admin: 08/02/18 10:58 Dose: Not Given Aspirin (Aspirin) 325 mg PO DAILY [facility] Last Admin: 08/02/18 10:27 Dose: 325 mg Calcium Acetate (Phoslo) 1,334 mg PO TID [facility] Last Admin: 08/02/18 15:14 Dose: 1,334 mg Famotidine (Pepcid) 20 mg PO DAILY [facility] Last Admin: 08/02/18 10:28 Dose: 20 mg Heparin Sodium (Porcine) (Heparin) 5,000 units SC BID [facility] Last Admin: 08/02/18 10:58 Dose: Not Given Isosorbide Dinitrate (Isordil) 20 mg PO DAILY [facility] Last Admin: 08/02/18 10:52 Dose: 20 mg Latanoprost (Xalatan Opht) 0 ml OU HS [facility] Levothyroxine Sodium (Synthroid) 25 mcg PO DAILY@0630 [facility] Last Admin: 08/02/18 05:52 Dose: 25 mcg Metoprolol Tartrate (Lopressor) 25 mg PO BID [facility] Last Admin: 08/02/18 10:27 Dose: 25 mg Oxycodone/Acetaminophen (Percocet 5/325 Mg Tab) 2 tab PO Q6H PRN PRN Reason: Pain, Mild (1-3) Stop: 08/04/18 22:02 Last Admin: 08/02/18 10:26 Dose: 2 tab Prochlorperazine (Compazine) 10 mg PO BID PRN PRN Reason: Nausea/Vomiting Sevelamer Carbonate (Renvela) 1,600 mg PO TID [facility] Last Admin: 08/02/18 15:13 Dose: Not Given Physical Exam - Constitutional Appears: Chronically Ill - Head Exam Head Exam: NORMAL INSPECTION - Eye Exam Eye Exam: Normal appearance - ENT Exam ENT Exam: Mucous Membranes Moist - Neck Exam Neck exam: Positive for: Full Rom - Respiratory Exam Respiratory Exam: Decreased Breath Sounds - Cardiovascular Exam Cardiovascular Exam: Irregular Rhythm - GI/Abdominal Exam GI & Abdominal Exam: Normal Bowel Sounds - Rectal Exam Rectal Exam: Deferred - Extremities Exam Extremities exam: Negative for: pedal edema - Back Exam Back exam: NORMAL INSPECTION - Neurological Exam Neurological exam: Alert, Oriented x3 - Psychiatric Exam Psychiatric exam: Normal Affect - Skin Skin Exam: Normal Color Results - Vital Signs Recent Vital Signs: Last Vital Signs Temp 97.8 F 08/02/18 15:57 Pulse 60 08/02/18 15:57 Resp 18 08/02/18 15:57 BP 106/61 08/02/18 15:57 Pulse Ox 100 08/02/18 15:57 - Labs Result Diagrams: 08/01/18 18:24 08/01/18 18:24 Labs: Laboratory Results - last 24 hr 08/01/18 08/01/18 08/01/18 18:24 18:24 18:24 WBC 3.1 L RBC 3.33 L Hgb 11.1 Hct 33.6 L MCV 101.1 H MCH 33.5 H MCHC 33.1 RDW 15.5 H Plt Count 84 L MPV 7.9 Neut % (Auto) 65.0 Lymph % (Auto) 21.7 [place] % (Auto) 10.3 H Eos % (Auto) 1.6 Baso % (Auto) 1.4 Neut # (Auto) 2.0 Lymph # (Auto) 0.7 L [place] # (Auto) 0.3 Eos # (Auto) 0.0 Baso # (Auto) 0.0 PT 12.7 H INR 1.2 APTT 37.7 H Sodium 137 Potassium 4.1 Chloride 93 L Carbon Dioxide 33 H Anion Gap 16 BUN 31 H Creatinine 3.5 H Est GFR ( Amer) 16 Est GFR (Non-Af Amer) 13 Random Glucose 100 Calcium 7.9 L Total Bilirubin 0.6 AST 54 H D ALT 41 Alkaline Phosphatase 353 H D Total Creatine Kinase CK-MB (Mass) Troponin I < 0.0120 NT-Pro-B Natriuret Pep 67754 H Total Protein 9.0 H Albumin 4.2 Globulin 4.7 H Albumin/Globulin Ratio 0.9 L 08/02/18 02:16 WBC RBC Hgb Hct MCV MCH MCHC RDW Plt Count MPV Neut % (Auto) Lymph % (Auto) [place] % (Auto) Eos % (Auto) Baso % (Auto) Neut # (Auto) Lymph # (Auto) [place] # (Auto) Eos # (Auto) Baso # (Auto) PT INR APTT Sodium Potassium Chloride Carbon Dioxide Anion Gap BUN Creatinine Est GFR ( Amer) Est GFR (Non-Af Amer) Random Glucose Calcium Total Bilirubin AST ALT Alkaline Phosphatase Total Creatine Kinase 29 L CK-MB (Mass) 0.82 Troponin I < 0.0120 NT-Pro-B Natriuret Pep Total Protein Albumin Globulin Albumin/Globulin Ratio - EKG Data EKG Interpreted by: Myself Assessment & Plan (1) Atrial fibrillation Assessment and Plan: patient has paroxysmal atrial fibrillation. ideally she should be anticoagulate d, however may be at increaesed risk for bleeding given thrombocytopenia. Status: Acute (2) Chest pain Assessment and Plan: not cardiac in origin. normal stress test. Status: Acute
[2018-08-02] MEDS: Latanoprost 2.5 ml Opht Soln OU SCH (21:58)
--- NOTE | 2018-08-02 23:12 | CP.PCM.PN ---
Subjective - Date & Time of Evaluation Date of Evaluation: 08/02/18 - Subjective Subjective: patient seen today no nausea, no vomiting, no dizziness, no diarrhea, no fever no shortness of breath Objective - Vital Signs/Intake and Output Vital Signs (last 24 hours): Temp Pulse Resp BP Pulse Ox 97.8 F 60 18 106/61 100 08/02/18 15:57 08/02/18 15:57 08/02/18 15:57 08/02/18 15:57 08/02/18 16:00 - Medications Medications: Current Medications Amlodipine Besylate (Norvasc) 5 mg PO DAILY [facility] Last Admin: 08/02/18 10:58 Dose: Not Given Aspirin (Aspirin) 325 mg PO DAILY [facility] Last Admin: 08/02/18 10:27 Dose: 325 mg Calcium Acetate (Phoslo) 1,334 mg PO TID [facility] Last Admin: 08/02/18 18:04 Dose: Not Given Famotidine (Pepcid) 20 mg PO DAILY [facility] Last Admin: 08/02/18 10:28 Dose: 20 mg Heparin Sodium (Porcine) (Heparin) 5,000 units SC BID [facility] Last Admin: 08/02/18 18:04 Dose: Not Given Isosorbide Dinitrate (Isordil) 20 mg PO DAILY [facility] Last Admin: 08/02/18 10:52 Dose: 20 mg Latanoprost (Xalatan Opht) 0 ml OU HS [facility] Last Admin: 08/02/18 21:58 Dose: Not Given Levothyroxine Sodium (Synthroid) 25 mcg PO DAILY@0630 [facility] Last Admin: 08/02/18 05:52 Dose: 25 mcg Metoprolol Tartrate (Lopressor) 25 mg PO BID [facility] Last Admin: 08/02/18 18:04 Dose: Not Given Oxycodone/Acetaminophen (Percocet 5/325 Mg Tab) 2 tab PO Q6H PRN PRN Reason: Pain, Mild (1-3) Stop: 08/04/18 22:02 Last Admin: 08/02/18 21:56 Dose: 2 tab Prochlorperazine (Compazine) 10 mg PO BID PRN PRN Reason: Nausea/Vomiting Sevelamer Carbonate (Renvela) 1,600 mg PO TID [facility] Last Admin: 08/02/18 18:04 Dose: Not Given - Labs Labs: 08/01/18 18:24 08/01/18 18:24 PT 12.7 SECONDS (9.7-12.2) H 08/01/18 18:24 INR 1.2 08/01/18 18:24 APTT 37.7 SECONDS (21-34) H 08/01/18 18:24 - Constitutional Appears: Well - Head Exam Head Exam: ATRAUMATIC, NORMAL INSPECTION, NORMOCEPHALIC - Eye Exam Eye Exam: EOMI, Normal appearance, PERRL Pupil Exam: NORMAL ACCOMODATION, PERRL - ENT Exam ENT Exam: Mucous Membranes Moist, Normal Exam - Neck Exam Neck Exam: Full ROM, Normal Inspection. absent: Lymphadenopathy - Respiratory Exam Respiratory Exam: Decreased Breath Sounds - Cardiovascular Exam Cardiovascular Exam: REGULAR RHYTHM, +S1, +S2 - GI/Abdominal Exam GI & Abdominal Exam: Soft, Diminished Bowel Sounds - Rectal Exam Rectal Exam: Deferred - Neurological Exam Neurological Exam: Oriented x3 Assessment and Plan (1) Atrial fibrillation Status: Acute (2) Atypical chest pain Status: Acute (3) COPD (chronic obstructive pulmonary disease) Status: Acute (4) Chest pain Status: Acute (5) Chest wall discomfort Status: Acute (6) Failed kidney transplant Status: Acute (7) 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 renal disease Status: Acute (8) Palpitations Status: Acute (9) ACS (acute coronary syndrome) Status: Acute (10) Abdominal pain Status: Acute (11) Acute hyperkalemia Status: Acute (12) Anemia Status: Acute (13) Anemia, chronic renal failure Status: Acute (14) At high risk for hyperkalemia Status: Acute (15) Atrial fibrillation Status: Acute (16) Atrial fibrillation with RVR Status: Acute (17) Bradycardia Status: Acute (18) C. difficile colitis Status: Acute (19) CHF (congestive heart failure) Status: Acute (20) CHF (congestive heart failure) Status: Acute (21) CHF (congestive heart failure) Status: Acute (22) COPD (chronic obstructive pulmonary disease) Status: Acute (23) Chest discomfort Status: Acute (24) Chest pain Status: Acute (25) Chest pain Status: Acute (26) Chest pain Status: Acute (27) Chest pain Status: Acute (28) Chest pain at rest Status: Acute (29) Chills (without fever) Status: Acute (30) Chronic pain Status: Acute (31) Chronic pain Status: Acute (32) Coagulopathy Status: Acute (33) Constipation Status: Acute (34) DDD (degenerative disc disease), lumbosacral Status: Acute (35) Degenerative disc disease, lumbar Status: Acute (36) Dyspnea Status: Acute (37) Dyspnea Status: Acute (38) ESRD (end stage renal disease) Status: Acute (39) ESRD (end stage renal disease) on dialysis Status: Acute (40) ESRD needing dialysis Status: Acute (41) ESRD on hemodialysis Status: Acute (42) ESRD on hemodialysis Status: Acute (43) Elevated brain natriuretic peptide (BNP) level Status: Acute (44) Elevated lipase Status: Acute (45) Elevated serum globulin level Status: Acute (46) End stage renal disease Status: Acute (47) Epistaxis Status: Acute (48) Exacerbation of asthma Status: Acute (49) Failed kidney transplant Status: Acute (50) Fever Status: Acute (51) Fibrosing dermatitis Status: Acute (52) Fluid overload Status: Acute (53) GI bleed Status: Acute (54) Gastroenteritis Status: Acute (55) Gastrointestinal hemorrhage Status: Acute (56) Headache Status: Acute (57) Hyperkalemia Status: Acute (58) Hyperkalemia, diminished renal excretion Status: Acute (59) Hypertensive CKD, ESRD on dialysis Status: Acute (60) 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 renal disease Status: Acute (61) 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 renal disease Status: Acute (62) 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 renal disease Status: Acute (63) Hypotension Status: Acute (64) Intractable pain Status: Acute (65) Kidney transplant failure Status: Acute (66) Labile blood pressure Status: Acute (67) Leg pain Status: Acute (68) Missed dialysis Status: Acute (69) Narcotic withdrawal Status: Acute (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 (72) Pacemaker Status: Acute (73) Palpitations Status: Acute (74) Palpitations Status: Acute (75) Pancytopenia Status: Acute (76) Paroxysmal atrial fibrillation Status: Acute (77) Pleural effusion Status: Acute (78) Pneumonia Status: Acute (79) Prophylactic measure Status: Acute (80) Pulmonary HTN Status: Acute (81) Pulmonary edema Status: Acute (82) Rapid atrial fibrillation Status: Acute (83) Rectal bleeding Status: Acute (84) Rectal pain Status: Acute (85) Renal failure Status: Acute (86) Respiratory distress Status: Acute (87) Respiratory failure Status: Acute (88) Shortness of breath Status: Acute (89) Thrombocytopenia Status: Acute (90) Uncontrolled atrial fibrillation Status: Acute (91) Upper respiratory infection Status: Acute (92) Weakness Status: Acute (93) Back pain Status: Chronic (94) Benign hypertension with ESRD (end-stage renal disease) Status: Chronic (95) Chronic congestive heart failure Status: Chronic (96) Congestive heart failure Status: Chronic (97) ESRD (end stage renal disease) Status: Chronic (98) ESRD due to benign hypertension Status: Chronic (99) ESRD on dialysis Status: Chronic (100) End stage renal failure on dialysis Status: Chronic (101) HTN (hypertension) Status: Chronic (102) Nephrogenic fibrosing dermopathy Status: Chronic (103) Scleroderma Status: Chronic (104) Sclerosis of the skin Status: Chronic - Assessment and Plan (Free Text) Plan: plan discussed with patient moderate complexity of care WBC 3.1 Hematocrit 33.6 Platelet 84 BUN 31 Creatinine 3.5 aspirin compazine heparin isodril lopressor norvasc pepcid percocet phoslo renvela synthroid xalatan opht medications reviewed vitals reviewed labs reviewed
[2018-08-03] MEDS: Levothyroxine 25 MCG TAB PO SCH (05:58)
--- NOTE | 2018-08-03 09:36 | CP.PCM.PN ---
Subjective - Date & Time of Evaluation Date of Evaluation: 08/03/18 Time of Evaluation: 09:32 - Subjective Subjective: Feels better No more CPs VR-80s no other complaint for dialysis today Possible discharge post dialysis Objective - Vital Signs/Intake and Output Vital Signs (last 24 hours): Temp Pulse Resp BP Pulse Ox 98 F 68 20 112/74 100 08/03/18 07:00 08/03/18 07:32 08/03/18 07:00 08/03/18 07:00 08/03/18 07:00 - Medications Medications: Current Medications Amlodipine Besylate (Norvasc) 5 mg PO DAILY [facility] Last Admin: 08/02/18 10:58 Dose: Not Given Aspirin (Aspirin) 325 mg PO DAILY [facility] Last Admin: 08/02/18 10:27 Dose: 325 mg Calcium Acetate (Phoslo) 1,334 mg PO TID [facility] Last Admin: 08/02/18 18:04 Dose: Not Given Famotidine (Pepcid) 20 mg PO DAILY [facility] Last Admin: 08/02/18 10:28 Dose: 20 mg Heparin Sodium (Porcine) (Heparin) 5,000 units SC BID [facility] Last Admin: 08/02/18 18:04 Dose: Not Given Isosorbide Dinitrate (Isordil) 20 mg PO DAILY [facility] Last Admin: 08/02/18 10:52 Dose: 20 mg Latanoprost (Xalatan Opht) 0 ml OU HS [facility] Last Admin: 08/02/18 21:58 Dose: Not Given Levothyroxine Sodium (Synthroid) 25 mcg PO DAILY@0630 [facility] Last Admin: 08/03/18 05:58 Dose: 25 mcg Metoprolol Tartrate (Lopressor) 25 mg PO BID [facility] Last Admin: 08/02/18 18:04 Dose: Not Given Oxycodone/Acetaminophen (Percocet 5/325 Mg Tab) 2 tab PO Q6H PRN PRN Reason: Pain, Mild (1-3) Stop: 08/04/18 22:02 Last Admin: 08/02/18 21:56 Dose: 2 tab Prochlorperazine (Compazine) 10 mg PO BID PRN PRN Reason: Nausea/Vomiting Sevelamer Carbonate (Renvela) 1,600 mg PO TID [facility] Last Admin: 08/02/18 18:04 Dose: Not Given - Labs Labs: 08/01/18 18:24 08/01/18 18:24 PT 12.7 SECONDS (9.7-12.2) H 08/01/18 18:24 INR 1.2 08/01/18 18:24 APTT 37.7 SECONDS (21-34) H 08/01/18 18:24 - Constitutional Appears: No Acute Distress, Chronically Ill - Head Exam Head Exam: ATRAUMATIC, NORMAL INSPECTION - Eye Exam Eye Exam: EOMI, Normal appearance - Neck Exam Neck Exam: Normal Inspection. absent: Tenderness - Respiratory Exam Respiratory Exam: Clear to Ausculation Bilateral, NORMAL BREATHING PATTERN - Cardiovascular Exam Cardiovascular Exam: Irregular Rhythm, +S1 - GI/Abdominal Exam GI & Abdominal Exam: Soft. absent: Tenderness - Extremities Exam Extremities Exam: Normal Inspection. absent: Tenderness - Neurological Exam Neurological Exam: Awake, CN II-XII Intact - Skin Skin Exam: Dry, Warm Assessment and Plan (1) Atypical chest pain Status: Acute (2) Atrial fibrillation Status: Acute (3) COPD (chronic obstructive pulmonary disease) Status: Acute (4) 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 renal disease Status: Acute (5) Failed kidney transplant Status: Acute (6) Nephrogenic fibrosing dermopathy Status: Chronic - Assessment and Plan (Free Text) Plan: dialysis now monitor CPs AFib control possible discharge post HD
[2018-08-03] MEDS: Oxycodone/Acetaminophen 5/325 mg Tab PO PRN ×2 (09:43→18:51)
--- NOTE | 2018-08-03 14:17 | CARD ---
APPROVED REPORT Date of service: 08/01/2018 EKG Measurement Heart [id number] <Conclusion> Atrial fibrillation Right bundle branch block T wave abnormality, consider inferior ischemia Abnormal ECG
[2018-08-03] MEDS: Latanoprost 2.5 ml Opht Soln OU SCH (21:41)
--- NOTE | 2018-08-03 23:24 | CP.PCM.PN ---
Subjective - Date & Time of Evaluation Date of Evaluation: 08/03/18 - Subjective Subjective: no c/o vomiting, no diarrhea, no fever Objective - Vital Signs/Intake and Output Vital Signs (last 24 hours): Temp Pulse Resp BP Pulse Ox 98.1 F 65 20 126/77 95 08/03/18 18:10 08/03/18 21:40 08/03/18 21:40 08/03/18 21:40 08/03/18 21:40 - Medications Medications: Current Medications Amlodipine Besylate (Norvasc) 5 mg PO DAILY [facility] Last Admin: 08/03/18 09:44 Dose: 5 mg Aspirin (Aspirin) 325 mg PO DAILY [facility] Last Admin: 08/03/18 09:44 Dose: 325 mg Calcium Acetate (Phoslo) 1,334 mg PO TID [facility] Last Admin: 08/03/18 18:44 Dose: Not Given Famotidine (Pepcid) 20 mg PO DAILY [facility] Last Admin: 08/03/18 09:44 Dose: 20 mg Heparin Sodium (Porcine) (Heparin) 5,000 units SC BID [facility] Last Admin: 08/03/18 18:44 Dose: Not Given Isosorbide Dinitrate (Isordil) 20 mg PO DAILY [facility] Last Admin: 08/03/18 09:46 Dose: 20 mg Latanoprost (Xalatan Opht) 0 ml OU HS [facility] Last Admin: 08/03/18 21:41 Dose: Not Given Levothyroxine Sodium (Synthroid) 25 mcg PO DAILY@0630 [facility] Last Admin: 08/03/18 05:58 Dose: 25 mcg Metoprolol Tartrate (Lopressor) 25 mg PO BID [facility] Last Admin: 08/03/18 22:06 Dose: 25 mg Oxycodone/Acetaminophen (Percocet 5/325 Mg Tab) 2 tab PO Q6H PRN PRN Reason: Pain, Mild (1-3) Stop: 08/04/18 22:02 Last Admin: 08/03/18 18:51 Dose: 2 tab Prochlorperazine (Compazine) 10 mg PO BID PRN PRN Reason: Nausea/Vomiting Sevelamer Carbonate (Renvela) 1,600 mg PO TID [facility] Last Admin: 08/03/18 18:44 Dose: Not Given - Labs Labs: 08/01/18 18:24 08/01/18 18:24 PT 12.7 SECONDS (9.7-12.2) H 08/01/18 18:24 INR 1.2 08/01/18 18:24 APTT 37.7 SECONDS (21-34) H 08/01/18 18:24 Assessment and Plan (1) Atrial fibrillation Status: Acute (2) Atypical chest pain Status: Acute (3) COPD (chronic obstructive pulmonary disease) Status: Acute (4) Chest pain Status: Acute (5) Chest wall discomfort Status: Acute (6) Failed kidney transplant Status: Acute (7) 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 renal disease Status: Acute (8) Palpitations Status: Acute (9) ACS (acute coronary syndrome) Status: Acute (10) Abdominal pain Status: Acute (11) Acute hyperkalemia Status: Acute (12) Anemia Status: Acute (13) Anemia, chronic renal failure Status: Acute (14) At high risk for hyperkalemia Status: Acute (15) Atrial fibrillation Status: Acute (16) Atrial fibrillation with RVR Status: Acute (17) Bradycardia Status: Acute (18) C. difficile colitis Status: Acute (19) CHF (congestive heart failure) Status: Acute (20) CHF (congestive heart failure) Status: Acute (21) CHF (congestive heart failure) Status: Acute (22) COPD (chronic obstructive pulmonary disease) Status: Acute (23) Chest discomfort Status: Acute (24) Chest pain Status: Acute (25) Chest pain Status: Acute (26) Chest pain Status: Acute (27) Chest pain Status: Acute (28) Chest pain at rest Status: Acute (29) Chills (without fever) Status: Acute (30) Chronic pain Status: Acute (31) Chronic pain Status: Acute (32) Coagulopathy Status: Acute (33) Constipation Status: Acute (34) DDD (degenerative disc disease), lumbosacral Status: Acute (35) Degenerative disc disease, lumbar Status: Acute (36) Dyspnea Status: Acute (37) Dyspnea Status: Acute (38) ESRD (end stage renal disease) Status: Acute (39) ESRD (end stage renal disease) on dialysis Status: Acute (40) ESRD needing dialysis Status: Acute (41) ESRD on hemodialysis Status: Acute (42) ESRD on hemodialysis Status: Acute (43) Elevated brain natriuretic peptide (BNP) level Status: Acute (44) Elevated lipase Status: Acute (45) Elevated serum globulin level Status: Acute (46) End stage renal disease Status: Acute (47) Epistaxis Status: Acute (48) Exacerbation of asthma Status: Acute (49) Failed kidney transplant Status: Acute (50) Fever Status: Acute (51) Fibrosing dermatitis Status: Acute (52) Fluid overload Status: Acute (53) GI bleed Status: Acute (54) Gastroenteritis Status: Acute (55) Gastrointestinal hemorrhage Status: Acute (56) Headache Status: Acute (57) Hyperkalemia Status: Acute (58) Hyperkalemia, diminished renal excretion Status: Acute (59) Hypertensive CKD, ESRD on dialysis Status: Acute (60) 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 renal disease Status: Acute (61) 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 renal disease Status: Acute (62) 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 renal disease Status: Acute (63) Hypotension Status: Acute (64) Intractable pain Status: Acute (65) Kidney transplant failure Status: Acute (66) Labile blood pressure Status: Acute (67) Leg pain Status: Acute (68) Missed dialysis Status: Acute (69) Narcotic withdrawal Status: Acute (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 (72) Pacemaker Status: Acute (73) Palpitations Status: Acute (74) Palpitations Status: Acute (75) Pancytopenia Status: Acute (76) Paroxysmal atrial fibrillation Status: Acute (77) Pleural effusion Status: Acute (78) Pneumonia Status: Acute (79) Prophylactic measure Status: Acute (80) Pulmonary HTN Status: Acute (81) Pulmonary edema Status: Acute (82) Rapid atrial fibrillation Status: Acute (83) Rectal bleeding Status: Acute (84) Rectal pain Status: Acute (85) Renal failure Status: Acute (86) Respiratory distress Status: Acute (87) Respiratory failure Status: Acute (88) Shortness of breath Status: Acute (89) Thrombocytopenia Status: Acute (90) Uncontrolled atrial fibrillation Status: Acute (91) Upper respiratory infection Status: Acute (92) Weakness Status: Acute (93) Back pain Status: Chronic (94) Benign hypertension with ESRD (end-stage renal disease) Status: Chronic (95) Chronic congestive heart failure Status: Chronic (96) Congestive heart failure Status: Chronic (97) ESRD (end stage renal disease) Status: Chronic (98) ESRD due to benign hypertension Status: Chronic (99) ESRD on dialysis Status: Chronic (100) End stage renal failure on dialysis Status: Chronic (101) HTN (hypertension) Status: Chronic (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 Plan of care discussed with patient &/or family & staff. Medications reviewed and reconciled. Labs reviewed. Vitals reviewed.
[2018-08-04] MEDS: Oxycodone/Acetaminophen 5/325 mg Tab PO PRN ×3 (05:11→21:23)
[2018-08-04] MEDS: Levothyroxine 25 MCG TAB PO SCH (05:56)
--- NOTE | 2018-08-04 11:13 | CP.PCM.PN ---
Subjective - Date & Time of Evaluation Date of Evaluation: 08/04/18 - Subjective Subjective: no c/o vomiting, no diarrhea, no fever Objective - Vital Signs/Intake and Output Vital Signs (last 24 hours): Temp Pulse Resp BP Pulse Ox 98.6 F 63 20 137/76 96 08/04/18 07:00 08/04/18 07:44 08/04/18 07:00 08/04/18 07:00 08/04/18 07:00 - Medications Medications: Current Medications Amlodipine Besylate (Norvasc) 5 mg PO DAILY [facility] Last Admin: 08/04/18 09:00 Dose: 5 mg Aspirin (Aspirin) 325 mg PO DAILY [facility] Last Admin: 08/04/18 09:01 Dose: 325 mg Calcium Acetate (Phoslo) 1,334 mg PO TID [facility] Last Admin: 08/04/18 09:01 Dose: Not Given Famotidine (Pepcid) 20 mg PO DAILY [facility] Last Admin: 08/04/18 09:01 Dose: 20 mg Heparin Sodium (Porcine) (Heparin) 5,000 units SC BID [facility] Last Admin: 08/04/18 09:03 Dose: Not Given Isosorbide Dinitrate (Isordil) 20 mg PO DAILY [facility] Last Admin: 08/04/18 09:00 Dose: 20 mg Latanoprost (Xalatan Opht) 0 ml OU HS [facility] Last Admin: 08/03/18 21:41 Dose: Not Given Levothyroxine Sodium (Synthroid) 25 mcg PO DAILY@0630 [facility] Last Admin: 08/04/18 05:56 Dose: 25 mcg Metoprolol Tartrate (Lopressor) 25 mg PO BID [facility] Last Admin: 08/04/18 09:00 Dose: 25 mg Oxycodone/Acetaminophen (Percocet 5/325 Mg Tab) 2 tab PO Q6H PRN PRN Reason: Pain, Mild (1-3) Stop: 08/04/18 22:02 Last Admin: 08/04/18 05:11 Dose: 2 tab Prochlorperazine (Compazine) 10 mg PO BID PRN PRN Reason: Nausea/Vomiting Sevelamer Carbonate (Renvela) 1,600 mg PO TID [facility] Last Admin: 08/04/18 09:03 Dose: Not Given - Labs Labs: 08/01/18 18:24 08/01/18 18:24 PT 12.7 SECONDS (9.7-12.2) H 08/01/18 18:24 INR 1.2 08/01/18 18:24 APTT 37.7 SECONDS (21-34) H 08/01/18 18:24 Assessment and Plan (1) Atrial fibrillation Status: Acute (2) Atypical chest pain Status: Acute (3) COPD (chronic obstructive pulmonary disease) Status: Acute (4) Chest pain Status: Acute (5) Chest wall discomfort Status: Acute (6) Failed kidney transplant Status: Acute (7) 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 renal disease Status: Acute (8) Palpitations Status: Acute (9) ACS (acute coronary syndrome) Status: Acute (10) Abdominal pain Status: Acute (11) Acute hyperkalemia Status: Acute (12) Anemia Status: Acute (13) Anemia, chronic renal failure Status: Acute (14) At high risk for hyperkalemia Status: Acute (15) Atrial fibrillation Status: Acute (16) Atrial fibrillation with RVR Status: Acute (17) Bradycardia Status: Acute (18) C. difficile colitis Status: Acute (19) CHF (congestive heart failure) Status: Acute (20) CHF (congestive heart failure) Status: Acute (21) CHF (congestive heart failure) Status: Acute (22) COPD (chronic obstructive pulmonary disease) Status: Acute (23) Chest discomfort Status: Acute (24) Chest pain Status: Acute (25) Chest pain Status: Acute (26) Chest pain Status: Acute (27) Chest pain Status: Acute (28) Chest pain at rest Status: Acute (29) Chills (without fever) Status: Acute (30) Chronic pain Status: Acute (31) Chronic pain Status: Acute (32) Coagulopathy Status: Acute (33) Constipation Status: Acute (34) DDD (degenerative disc disease), lumbosacral Status: Acute (35) Degenerative disc disease, lumbar Status: Acute (36) Dyspnea Status: Acute (37) Dyspnea Status: Acute (38) ESRD (end stage renal disease) Status: Acute (39) ESRD (end stage renal disease) on dialysis Status: Acute (40) ESRD needing dialysis Status: Acute (41) ESRD on hemodialysis Status: Acute (42) ESRD on hemodialysis Status: Acute (43) Elevated brain natriuretic peptide (BNP) level Status: Acute (44) Elevated lipase Status: Acute (45) Elevated serum globulin level Status: Acute (46) End stage renal disease Status: Acute (47) Epistaxis Status: Acute (48) Exacerbation of asthma Status: Acute (49) Failed kidney transplant Status: Acute (50) Fever Status: Acute (51) Fibrosing dermatitis Status: Acute (52) Fluid overload Status: Acute (53) GI bleed Status: Acute (54) Gastroenteritis Status: Acute (55) Gastrointestinal hemorrhage Status: Acute (56) Headache Status: Acute (57) Hyperkalemia Status: Acute (58) Hyperkalemia, diminished renal excretion Status: Acute (59) Hypertensive CKD, ESRD on dialysis Status: Acute (60) 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 renal disease Status: Acute (61) 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 renal disease Status: Acute (62) 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 renal disease Status: Acute (63) Hypotension Status: Acute (64) Intractable pain Status: Acute (65) Kidney transplant failure Status: Acute (66) Labile blood pressure Status: Acute (67) Leg pain Status: Acute (68) Missed dialysis Status: Acute (69) Narcotic withdrawal Status: Acute (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 (72) Pacemaker Status: Acute (73) Palpitations Status: Acute (74) Palpitations Status: Acute (75) Pancytopenia Status: Acute (76) Paroxysmal atrial fibrillation Status: Acute (77) Pleural effusion Status: Acute (78) Pneumonia Status: Acute (79) Prophylactic measure Status: Acute (80) Pulmonary HTN Status: Acute (81) Pulmonary edema Status: Acute (82) Rapid atrial fibrillation Status: Acute (83) Rectal bleeding Status: Acute (84) Rectal pain Status: Acute (85) Renal failure Status: Acute (86) Respiratory distress Status: Acute (87) Respiratory failure Status: Acute (88) Shortness of breath Status: Acute (89) Thrombocytopenia Status: Acute (90) Uncontrolled atrial fibrillation Status: Acute (91) Upper respiratory infection Status: Acute (92) Weakness Status: Acute (93) Back pain Status: Chronic (94) Benign hypertension with ESRD (end-stage renal disease) Status: Chronic (95) Chronic congestive heart failure Status: Chronic (96) Congestive heart failure Status: Chronic (97) ESRD (end stage renal disease) Status: Chronic (98) ESRD due to benign hypertension Status: Chronic (99) ESRD on dialysis Status: Chronic (100) End stage renal failure on dialysis Status: Chronic (101) HTN (hypertension) Status: Chronic (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 Plan of care discussed with patient &/or family & staff. Medications reviewed and reconciled. Labs reviewed. Vitals reviewed.
[2018-08-04] MEDS: Latanoprost 2.5 ml Opht Soln OU SCH (21:24)
[2018-08-04] MEDS ORDERED: Simethicone 80 mg Chewtab PO ONE (23:14)
[2018-08-05] MEDS ORDERED: Oxycodone/Acetaminophen 5/325 mg Tab PO PRN (04:50)
[2018-08-05] MEDS: Oxycodone/Acetaminophen 5/325 mg Tab PO PRN ×2 (05:02→15:08)
[2018-08-05] MEDS: Levothyroxine 25 MCG TAB PO SCH (06:39)
[2018-08-05 07:59] VITALS: BP 122/69; PULSE 60; RESP 18; TEMP 99.4; O2SAT 100
--- NOTE | 2018-08-05 12:29 | CP.PCM.PN ---
Subjective - Date & Time of Evaluation Date of Evaluation: 08/05/18 Time of Evaluation: 12:27 - Subjective Subjective: stable dialysis 08/03 still dyspneic, very weak labs have been acceptable no other complaint Objective - Vital Signs/Intake and Output Vital Signs (last 24 hours): Temp Pulse Resp BP Pulse Ox 99.4 F 60 18 122/69 100 08/05/18 07:00 08/05/18 07:00 08/05/18 07:00 08/05/18 07:00 08/05/18 07:00 Intake and Output: 08/05/18 08/05/18 06:59 18:59 Intake Total 120 Output Total 0 Balance 120 - Medications Medications: Current Medications Amlodipine Besylate (Norvasc) 5 mg PO DAILY [facility] Last Admin: 08/05/18 09:14 Dose: 5 mg Aspirin (Aspirin) 325 mg PO DAILY [facility] Last Admin: 08/05/18 09:14 Dose: 325 mg Calcium Acetate (Phoslo) 1,334 mg PO TID [facility] Last Admin: 08/05/18 11:38 Dose: Not Given Famotidine (Pepcid) 20 mg PO DAILY [facility] Last Admin: 08/05/18 09:14 Dose: 20 mg Heparin Sodium (Porcine) (Heparin) 5,000 units SC BID [facility] Last Admin: 08/05/18 11:37 Dose: Not Given Isosorbide Dinitrate (Isordil) 20 mg PO DAILY [facility] Last Admin: 08/05/18 09:14 Dose: 20 mg Latanoprost (Xalatan Opht) 0 ml OU HS [facility] Last Admin: 08/04/18 21:24 Dose: Not Given Levothyroxine Sodium (Synthroid) 25 mcg PO DAILY@0630 [facility] Last Admin: 08/05/18 06:39 Dose: 25 mcg Metoprolol Tartrate (Lopressor) 25 mg PO BID [facility] Last Admin: 08/05/18 09:14 Dose: 25 mg Oxycodone/Acetaminophen (Percocet 5/325 Mg Tab) 1 tab PO Q6H PRN PRN Reason: Pain, moderate (4-7) Stop: 08/08/18 04:51 Oxycodone/Acetaminophen (Percocet 5/325 Mg Tab) 2 tab PO Q6H PRN PRN Reason: Pain, severe (8-10) Stop: 08/08/18 04:51 Last Admin: 08/05/18 05:02 Dose: 2 tab Prochlorperazine (Compazine) 10 mg PO BID PRN PRN Reason: Nausea/Vomiting Last Admin: 08/04/18 13:02 Dose: 10 mg Sevelamer Carbonate (Renvela) 1,600 mg PO TID [facility] Last Admin: 08/05/18 11:38 Dose: Not Given - Labs Labs: 08/01/18 18:24 08/01/18 18:24 PT 12.7 SECONDS (9.7-12.2) H 08/01/18 18:24 INR 1.2 08/01/18 18:24 APTT 37.7 SECONDS (21-34) H 08/01/18 18:24 - Constitutional Appears: No Acute Distress, Chronically Ill - Head Exam Head Exam: ATRAUMATIC, NORMAL INSPECTION - Eye Exam Eye Exam: EOMI, Normal appearance - Neck Exam Neck Exam: Normal Inspection. absent: Tenderness - Respiratory Exam Respiratory Exam: Rhonchi, NORMAL BREATHING PATTERN - Cardiovascular Exam Cardiovascular Exam: Irregular Rhythm - GI/Abdominal Exam GI & Abdominal Exam: Soft. absent: Tenderness - Extremities Exam Extremities Exam: Normal Inspection. absent: Tenderness - Neurological Exam Neurological Exam: Awake, CN II-XII Intact - Skin Skin Exam: Dry, Warm Assessment and Plan (1) Atypical chest pain Status: Acute (2) Atrial fibrillation Status: Acute (3) COPD (chronic obstructive pulmonary disease) Status: Acute (4) 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 renal disease Status: Acute (5) Failed kidney transplant Status: Acute (6) Nephrogenic fibrosing dermopathy Status: Chronic - Assessment and Plan (Free Text) Plan: same meds dialysis TTS increase UF goal for fluid overload
--- NOTE | 2018-08-05 22:50 | CP.PCM.DIS ---
Provider - Provider Date of Admission: 08/03/18 15:53 Attending physician: Jamil Newell MD Consults: 08/01/18 22:05 Cardiology Consult Routine Comment: Consulting Provider: Rae Santos Consulting Physician: Rae Santos Reason for Consult: palpitations 08/02/18 10:23 Nephrology Consult Routine Comment: Consulting Provider: Carlos Eng Consulting Physician: Carlos Eng Reason for Consult: ESRD Time Spent in preparation of Discharge (in minutes): 25 Diagnosis - Discharge Diagnosis (1) Atrial fibrillation Status: Acute (2) Atypical chest pain Status: Acute (3) COPD (chronic obstructive pulmonary disease) Status: Acute (4) Chest pain Status: Acute (5) Chest wall discomfort Status: Acute (6) Failed kidney transplant Status: Acute (7) 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 renal disease Status: Acute (8) Palpitations Status: Acute (9) ACS (acute coronary syndrome) Status: Acute (10) Abdominal pain Status: Acute (11) Acute hyperkalemia Status: Acute (12) Anemia Status: Acute (13) Anemia, chronic renal failure Status: Acute (14) At high risk for hyperkalemia Status: Acute (15) Atrial fibrillation Status: Acute (16) Atrial fibrillation with RVR Status: Acute (17) Bradycardia Status: Acute (18) C. difficile colitis Status: Acute (19) CHF (congestive heart failure) Status: Acute (20) CHF (congestive heart failure) Status: Acute (21) CHF (congestive heart failure) Status: Acute (22) COPD (chronic obstructive pulmonary disease) Status: Acute (23) Chest discomfort Status: Acute (24) Chest pain Status: Acute (25) Chest pain Status: Acute (26) Chest pain Status: Acute (27) Chest pain Status: Acute (28) Chest pain at rest Status: Acute (29) Chills (without fever) Status: Acute (30) Chronic pain Status: Acute (31) Chronic pain Status: Acute (32) Coagulopathy Status: Acute (33) Constipation Status: Acute (34) DDD (degenerative disc disease), lumbosacral Status: Acute (35) Degenerative disc disease, lumbar Status: Acute Priority: Medium (36) Dyspnea Status: Acute (37) Dyspnea Status: Acute (38) ESRD (end stage renal disease) Status: Acute (39) ESRD (end stage renal disease) on dialysis Status: Acute (40) ESRD needing dialysis Status: Acute (41) ESRD on hemodialysis Status: Acute (42) ESRD on hemodialysis Status: Acute (43) Elevated brain natriuretic peptide (BNP) level Status: Acute (44) Elevated lipase Status: Acute (45) Elevated serum globulin level Status: Acute (46) End stage renal disease Status: Acute (47) Epistaxis Status: Acute (48) Exacerbation of asthma Status: Acute (49) Failed kidney transplant Status: Acute (50) Fever Status: Acute (51) Fibrosing dermatitis Status: Acute (52) Fluid overload Status: Acute (53) GI bleed Status: Acute (54) Gastroenteritis Status: Acute (55) Gastrointestinal hemorrhage Status: Acute (56) Headache Status: Acute (57) Hyperkalemia Status: Acute (58) Hyperkalemia, diminished renal excretion Status: Acute (59) Hypertensive CKD, ESRD on dialysis Status: Acute (60) 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 renal disease Status: Acute (61) 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 renal disease Status: Acute (62) 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 renal disease Status: Acute (63) Hypotension Status: Acute (64) Intractable pain Status: Acute (65) Kidney transplant failure Status: Acute (66) Labile blood pressure Status: Acute (67) Leg pain Status: Acute (68) Missed dialysis Status: Acute (69) Narcotic withdrawal Status: Acute (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 (72) Pacemaker Status: Acute (73) Palpitations Status: Acute (74) Palpitations Status: Acute (75) Pancytopenia Status: Acute (76) Paroxysmal atrial fibrillation Status: Acute (77) Pleural effusion Status: Acute (78) Pneumonia Status: Acute (79) Prophylactic measure Status: Acute (80) Pulmonary HTN Status: Acute (81) Pulmonary edema Status: Acute (82) Rapid atrial fibrillation Status: Acute (83) Rectal bleeding Status: Acute (84) Rectal pain Status: Acute (85) Renal failure Status: Acute (86) Respiratory distress Status: Acute (87) Respiratory failure Status: Acute (88) Shortness of breath Status: Acute (89) Thrombocytopenia Status: Acute (90) Uncontrolled atrial fibrillation Status: Acute (91) Upper respiratory infection Status: Acute (92) Weakness Status: Acute (93) Back pain Status: Chronic (94) Benign hypertension with ESRD (end-stage renal disease) Status: Chronic (95) Chronic congestive heart failure Status: Chronic (96) Congestive heart failure Status: Chronic Priority: Medium (97) ESRD (end stage renal disease) Status: Chronic Priority: High (98) ESRD due to benign hypertension Status: Chronic (99) ESRD on dialysis Status: Chronic Priority: Medium (100) End stage renal failure on dialysis Status: Chronic (101) HTN (hypertension) Status: Chronic (102) Nephrogenic fibrosing dermopathy Status: Chronic (103) Scleroderma Status: Chronic (104) Sclerosis of the skin Status: Chronic Priority: High Hospital Course - Lab Results Lab Results: Most Recent Lab Values WBC 3.1 K/uL (4.8-10.8) L 08/01/18 18:24 RBC 3.33 Mil/uL (3.80-5.20) L 08/01/18 18:24 Hgb 11.1 g/dL (11.0-16.0) 08/01/18 18:24 Hct 33.6 % (34.0-47.0) L 08/01/18 18:24 MCV 101.1 fL (81.0-99.0) H 08/01/18 18:24 MCH 33.5 pg (27.0-31.0) H 08/01/18 18:24 MCHC 33.1 g/dL (33.0-37.0) 08/01/18 18:24 RDW 15.5 % (11.5-14.5) H 08/01/18 18:24 Plt Count 84 K/uL (130-400) L 08/01/18 18:24 MPV 7.9 fL (7.2-11.7) 08/01/18 18:24 Neut % (Auto) 65.0 % (50.0-75.0) 08/01/18 18:24 Lymph % (Auto) 21.7 % (20.0-40.0) 08/01/18 18:24 [place] % (Auto) 10.3 % (0.0-10.0) H 08/01/18 18:24 Eos % (Auto) 1.6 % (0.0-4.0) 08/01/18 18:24 Baso % (Auto) 1.4 % (0.0-2.0) 08/01/18 18:24 Neut # (Auto) 2.0 K/uL (1.8-7.0) 08/01/18 18:24 Lymph # (Auto) 0.7 K/uL (1.0-4.3) L 08/01/18 18:24 [place] # (Auto) 0.3 K/uL (0.0-0.8) 08/01/18 18:24 Eos # (Auto) 0.0 K/uL (0.0-0.7) 08/01/18 18:24 Baso # (Auto) 0.0 K/uL (0.0-0.2) 08/01/18 18:24 PT 12.7 SECONDS (9.7-12.2) H 08/01/18 18:24 INR 1.2 08/01/18 18:24 APTT 37.7 SECONDS (21-34) H 08/01/18 18:24 Sodium 137 mmol/L (132-148) 08/01/18 18:24 Potassium 4.1 mmol/L (3.6-5.2) 08/01/18 18:24 Chloride 93 mmol/L (98-107) L 08/01/18 18:24 Carbon Dioxide 33 mmol/L (22-30) H 08/01/18 18:24 Anion Gap 16 (10-20) 08/01/18 18:24 BUN 31 mg/dL (7-17) H 08/01/18 18:24 Creatinine 3.5 mg/dL (0.7-1.2) H 08/01/18 18:24 Est GFR ( Amer) 16 08/01/18 18:24 Est GFR (Non-Af Amer) 13 08/01/18 18:24 Random Glucose 100 mg/dL (65-105) 08/01/18 18:24 Calcium 7.9 mg/dl (8.6-10.4) L 08/01/18 18:24 Total Bilirubin 0.6 mg/dL (0.2-1.3) 08/01/18 18:24 AST 54 U/L (14-36) H D 08/01/18 18:24 ALT 41 U/L (9-52) 08/01/18 18:24 Alkaline Phosphatase 353 U/L (38-126) H D 08/01/18 18:24 Total Creatine Kinase 29 U/L (30-135) L 08/02/18 02:16 CK-MB (Mass) 0.82 ng/mL (0.0-3.38) 08/02/18 02:16 Troponin I < 0.0120 ng/mL (0.00-0.120) 08/02/18 02:16 NT-Pro-B Natriuret Pep 92985 pg/mL (0-900) H 08/01/18 18:24 Total Protein 9.0 g/dL (6.3-8.3) H 08/01/18 18:24 Albumin 4.2 g/dL (3.5-5.0) 08/01/18 18:24 Globulin 4.7 gm/dL (2.2-3.9) H 08/01/18 18:24 Albumin/Globulin Ratio 0.9 (1.0-2.1) L 08/01/18 18:24 - Hospital Course Hospital Course: Patient with the scleroderma end-stage renal disease/severe hypertension CAD came in with a palpitation which happens especially removing a lot of fluid on the dialysis eventually patient came to the emergency room patient received a pain medications seen by mayra renal receiving dialysis much better patient cleared by cardiology patient advised to see cardiology in outpatient patient is for the discharge patient's hemoglobin is 11.1 Creatinine is 3.5 Norvasc Aspirin PhosLo Pepcid Heparin Isorbid Xalatan Synthroid Lopressor Percocet Compazine Renvela Moderate to high complexity of care. Plan of care discussed with patient &/or family & staff. Medications reviewed and reconciled. Labs reviewed. Vitals reviewed. Discharge Exam - Head Exam Head Exam: ATRAUMATIC, NORMAL INSPECTION - Eye Exam Eye Exam: EOMI, Normal appearance, PERRL Pupil Exam: NORMAL ACCOMODATION, PERRL - ENT Exam ENT Exam: Mucous Membranes Moist, Normal Exam - Neck Exam Neck exam: Normal Inspection - Respiratory Exam Respiratory Exam: Decreased Breath Sounds, Rales - Cardiovascular Exam Cardiovascular Exam: REGULAR RHYTHM, +S1, +S2 - GI/Abdominal Exam GI & Abdominal Exam: Diminished Bowel Sounds, Soft - Rectal Exam Rectal Exam: Deferred - Neurological Exam Neurological exam: Oriented x3 Discharge Plan - Follow Up Plan Condition: GOOD Disposition: HOME/ ROUTINE Instructions: Dialysis Diet , Heart Failure, Adult (DC), Chest Pain (DC), End Stage Kidney Disease (DC), Palpitations (DC), Acute Abdominal Pain (DC), Acute Abdominal Pain (GEN), Hyperkalemia (DC), Hyperkalemia (GEN), Anemia (DC), Anemia (GEN) Additional Instructions: Continue all home medications Continuar todos los medicamentos caseros. Referrals: Porsha Newell MD [Staff Provider] -
== END 2018-08-05 18:22 | disposition home or self-care (01) | DRG 291 ==
LOC: C.ER 17:47 → C.9E 19:01 → C.6T 19:51 → OBSVTOIN 08-03 15:53
PROVIDERS: ADMIT Internal Medicine Nephrology; ATTEND Internal Medicine Nephrology
PROC: 5A1D70Z Performance of Urinary Filtration, Intermittent, Less than 6 Hours Per Day (ICD-10-PCS; principal; 2018-08-03)
DX: I13.2 Hypertensive heart and chronic kidney disease with heart failure and with stage 5 chronic kidney disease, or end stage renal disease (principal); N18.6 End stage renal disease; I47.1 Supraventricular tachycardia; T86.12 Kidney transplant failure; D61.818 Other pancytopenia; F11.23 Opioid dependence with withdrawal; A04.72 Enterocolitis due to Clostridium difficile, not specified as recurrent; I48.0 Paroxysmal atrial fibrillation; I27.20 Pulmonary hypertension, unspecified; D63.1 Anemia in chronic kidney disease; E78.5 Hyperlipidemia, unspecified; G89.29 Other chronic pain; I50.9 Heart failure, unspecified; K59.00 Constipation, unspecified; L30.9 Dermatitis, unspecified; M34.9 Systemic sclerosis, unspecified; M51.36 Other intervertebral disc degeneration, lumbar region; R04.0 Epistaxis; Z95.0 Presence of cardiac pacemaker; Z99.2 Dependence on renal dialysis; E87.5 Hyperkalemia; I25.110 Atherosclerotic heart disease of native coronary artery with unstable angina pectoris